=== PATIENT | female | born 1990 | race Caucasian/White ===

== ENCOUNTER 2020-09-16 08:10 | Outpatient (REF) | payer OTHER, SELFPAY ==
--- NOTE | 2020-09-16 | MR_ITS ---
EXAMINATION: MR BRAIN WITHOUT AND WITH CONTRAST CLINICAL INFORMATION: MCI. Gait disorder. COMPARISON: Head CT 06/16/2014. TECHNIQUE: Multiplanar, multisequence imaging of the brain was performed before and after the intravenous administration of 7.5 mL of Gadavist. FINDINGS: There is no acute infarction, mass, hemorrhage, or extra-axial collection. No abnormal or unexpected intracranial enhancement is seen. The ventricles, sulci, and basilar cisterns are normal in size and configuration. No demyelinating plaques are seen. No unexpected brain parenchymal volume loss. The flow voids of the major intracranial arteries appear intact. The bones and extracranial soft tissues are within normal limits. There is trace left mastoid fluid. MR/MR head/brain wo/w con IMPRESSION: No mass lesion, acute infarction, or abnormal intracranial enhancement. No brain parenchymal volume loss.
== END 2020-09-16 08:11 | disposition home or self-care (01) ==
LOC: HO.MRI 08:10
PROVIDERS: PCP Nurse Practitioner; Visit Provider Psychiatry & Neurology Neurology
DX: G31.84 Mild cognitive impairment of uncertain or unknown etiology (principal); R26.9 Unspecified abnormalities of gait and mobility
CPT/HCPCS: 70553; A9585

== ENCOUNTER 2020-11-08 15:00 | Outpatient (REF) | payer OTHER, SELFPAY | END 2020-11-08 15:01 | disposition home or self-care (01) | LOC: HO.HAP 15:00 | PROVIDERS: Visit Provider Nurse Practitioner | DX: Z13.89 Encounter for screening for other disorder (principal) ==

== ENCOUNTER 2020-11-14 12:14 | Emergency (ER) | payer OTHER, SELFPAY ==
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
[2020-11-14 14:04] VITALS: BP 103/53; PULSE 69; RESP 18; TEMP 36.7; O2SAT 100; BMI 29.2
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
[2020-11-14] MEDS: LORazepam 1 MG TABLET PO (15:37)
[2020-11-14] MEDS: Acetaminophen 325 MG TABLET 650 MG PO (15:38)
[2020-11-14] MEDS: Cyclobenzaprine HCl 5 MG TABLET PO (15:38)
[2020-11-14] MEDS: Silver Sulfadiazine 1 % Cream 20 GM TUBE 1 APPL TOPICAL (16:34)
--- NOTE | 2020-11-14 16:45 | PC.NURSE ---
silver sulfadine cream applied to left forearm, telfa and gauze dsd
== END 2020-11-14 16:45 | disposition home or self-care (01) ==
PROVIDERS: Emergency Provider Emergency Medicine; PCP Nurse Practitioner
DX: S09.90XA Unspecified injury of head, initial encounter (principal); G89.11 Acute pain due to trauma; M54.2 Cervicalgia; M25.562 Pain in left knee; S01.512A Laceration without foreign body of oral cavity, initial encounter; V43.02XA Car driver injured in collision with other type car in nontraffic accident, initial encounter; T22.112A Burn of first degree of left forearm, initial encounter; T31.0 Burns involving less than 10% of body surface; W22.11XA Striking against or struck by driver side automobile airbag, initial encounter; Y93.89 Activity, other specified; Y92.414 Local residential or business street as the place of occurrence of the external cause; Y99.9 Unspecified external cause status
CPT/HCPCS: 70450; 72125; 73090; 73564; 99283; 99284

== ENCOUNTER 2020-12-09 08:22 | Outpatient (REF) | payer SELFPAY | END 2020-12-09 08:23 | disposition home or self-care (01) | LOC: HO.HAP 08:22 | PROVIDERS: Visit Provider Nurse Practitioner | DX: Z46.1 Encounter for fitting and adjustment of hearing aid (principal) | CPT/HCPCS: V5266; V5299 ==

== ENCOUNTER 2020-12-26 13:03 | Emergency (ER) | payer OTHER, SELFPAY ==
[2020-12-26 13:18] VITALS: BP 101/58; PULSE 79; RESP 16; TEMP 36.9; O2SAT 100; BMI 33.1
--- NOTE | 2020-12-26 14:46 | ED_ITS ---
HPI - Headache General Chief Complaint: Headache Stated Complaint: migraine headache Time Seen by Provider: 12/26/20 14:25 Source: patient Mode of arrival: ambulatory Limitations: no limitations History of Present Illness HPI Narrative: 30 y/o female with history of obesity s/p gastric sleeve, refractory migraine headaches, fibromyalgia, anxiety who presents to the ED with 4 days of severe migraine headache. She states the pain is her entire head and even her hair hurts. Light and sound make it worse as well as laying flat. She has been nauseous and vomiting but denies abdominal pain. Denies chance of . She reports this headache feels like her typical migraine but more severe and more refractory. She was seen in the ED at [facility] yesterday where she was given IVF, Toradol and Zofran. She was negative for COVID. She was given a prescription for Fiorcet with no improvement. She reports seeing a Neurologist here who sent her to [facility] for possible Botox injections. MD elicited complaint: migraine Pertinent past history: migraines Onset (ago): day(s) (4) Onset description: gradually Location: down into neck and generalized Severity: severe Quality & Timing: aching, throbbing and squeezing Exacerbating factors: movement of head/neck, light and noise Relieving factors: nothing Context: occurred at rest Associated symptoms: nausea, vomiting and sensitivity to sound Treatments prior to arrival: none Related Data Previous Rx's Medication Instructions Recorded acetaminophen [Tylenol Extra 500 mg PO Q6H PRN #20 tab 11/14/20 Strength] bacitracin 1 appl TOPICAL BID #28 g 11/14/20 cyclobenzaprine 5 mg PO Q8H PRN 5 Days #14 tab 11/14/20 tramadol 50 mg PO Q8H PRN 3 Days #9 tab 11/14/20 Allergies Allergy/AdvReac Type Severity Reaction Status Date / Time clindamycin [CLINDAMYCIN] Allergy Severe ANAPHALAXIS Verified 11/14/20 14:04 adhesive tape Allergy Unknown CHANGES Verified 11/14/20 14:04 COLOR OF SKIN PERMANENTLY lamotrigine [From Lamictal] AdvReac Unknown Verified 12/26/20 13:24 Clindamycin HCl Allergy Unknown unknown Uncoded 03/23/19 00:00 Review of Systems Review of Systems: Constitutional: No Fever, No Chills ENT/Mouth: No sore throat, No Rhinorrhea, No Swallowing Difficulty Eyes: No Eye Pain, No Swelling, No Redness Cardiovascular: No Chest Pain, No SOB Respiratory: No Cough, No Sputum Gastrointestinal: + Nausea, + Vomiting, No Diarrhea, No abdominal Pain Musculoskeletal: + joint pain, + Myalgias Skin: No Skin Lesions, No rash Neuro: No Weakness, No Numbness, No Dizziness, + Headache Psych: + Anxiety/Panic, + Depression Heme/Lymph: No Bruising, No Lymphadenopathy Endocrine: No Polyuria, No Polydipsia [facility] Past Medical History Attestation statement: The following information was validated with the patient. Medical History Anxiety Asthma Fibromyalgia H/O migraine Social History Social History Advance Directives: No Advance Directives Information Provided: Yes Physical Exam Vital Signs: Vital Signs: Last Vital Signs Temp 98.3 F 12/26/20 15:42 Pulse 68 12/26/20 15:42 Resp 18 12/26/20 15:42 BP 89/56 L 12/26/20 15:42 Pulse Ox 99 12/26/20 15:42 Body Mass Index 33.1 Appearance: Alert. Oriented X3. No acute distress. Eyes: Pupils equal, round and reactive to light. EOMI, no nystagmus ENT: Pharynx normal. Neck: Normal inspection. Neck supple with lateral tenderness of soft tissues, no cervical spinal tenderness CVS: Normal heart rate and rhythm. Pulses normal. Respiratory: No respiratory distress. Breath sounds normal. Abdomen: Soft and nontender. +BS x4 Skin: Skin warm and dry. Normal skin color. Normal skin turgor. No rashes. Extremities: No lower extremity edema. Neuro: Oriented X 3. No motor deficit. No sensory deficit. Steady gait, non- focal. Course Course Course Narrative: 30 y/o female presenting with refractory migraine headache x4 days. She had recent MRI in Sep [address] scan neck in Nov. Doubt any organic cause. Clinical picture is not consistent with meningitis. Will treat with combination of toradol, reglan and benadryl and reassess. Reevaluation(s) Reevaluation #1: No improvement in headache after meds. Will give trial of Imitrex. Will sign out to Arash Walters PA-C who will re-evaluate the patient. MDM - Headache Differential Diagnosis Differential diagnosis: Likely migraine, tension headache, headache and postconcussion syndrome Medical Records Attestation: I reviewed the patient's medical records. Discharge Plan Discharge Clinical Impression: Migraine Qualifiers: Migraine type: unspecified Status migrainosus presence: with status migrainosus Intractability: intractable Qualified Code(s): G43.911 - Migraine, unspecified, intractable, with status migrainosus Patient Disposition: Home, Self-Care Instructions: Migraine Headache (ED) Additional Instructions: Follow up with your Neurologist [facility]. Prescriptions: No Action cyclobenzaprine 5 mg tablet 5 mg PO Q8H PRN (Reason: pain (scale score 7-10)) 5 Days Qty: 14 RF: 0 acetaminophen [Tylenol Extra Strength] 500 mg tablet 500 mg PO Q6H PRN (Reason: pain or fever) Qty: 20 RF: 0 tramadol 50 mg tablet 50 mg PO Q8H PRN (Reason: severe pain (scale score 7-10)) 3 Days Qty: 9 RF: 0 bacitracin 500 unit/gram ointment 1 appl topical BID Qty: 28 RF: 0
[2020-12-26] MEDS: 0.9 % Sodium Chloride 1,000 ML 999 ML IVCONT (14:52)
[2020-12-26] MEDS: diphenhydrAMINE HCL 50 MG/ML VIAL 25 MG IVPUSH (14:54)
[2020-12-26] MEDS: Ketorolac Tromethamine 30 MG/ML VIAL IVPUSH (14:55)
[2020-12-26] MEDS: Metoclopramide HCl 10 MG/2 ML VIAL IVPUSH (14:56)
[2020-12-26 15:42] VITALS: BP 89/56; PULSE 68; RESP 18; TEMP 36.8; O2SAT 99
[2020-12-26 17:17] VITALS: BP 98/56; PULSE 70; RESP 16; O2SAT 100
[2020-12-26] MEDS: dexAMETHasone 6 MG TABLET PO (17:18)
--- NOTE | 2020-12-26 17:21 | PC.NURSE ---
Pt continues to have a headache. She was given sc sumatriptan and po decadron at this time. VSS. Pt given crackers as requested.
[2020-12-26] MEDS: traMADoL HCL 50 MG TABLET PO (20:07)
== END 2020-12-26 20:18 | disposition home or self-care (01) ==
PROVIDERS: Emergency Provider Emergency Medicine; PCP Nurse Practitioner
DX: G43.911 Migraine, unspecified, intractable, with status migrainosus (principal); R11.2 Nausea with vomiting, unspecified; J45.909 Unspecified asthma, uncomplicated; F41.9 Anxiety disorder, unspecified; Z79.899 Other long term (current) drug therapy
CPT/HCPCS: 96361; 96372; 96374; 96375; 99284; J1200; J1885; J2765; J3030; J8540

== ENCOUNTER 2021-01-14 20:13 | Emergency (ER) | payer OTHER, SELFPAY ==
--- NOTE | ~2021-01-14 | CT_ITS ---
EXAMINATION: CT ABDOMEN AND PELVIS WITHOUT CONTRAST CLINICAL INFORMATION: Right-sided pain. Question appendicitis. Question stone. COMPARISON: 07/06/2011 TECHNIQUE: Multidetector volumetric imaging was performed from the superior aspect of the liver through the pubic symphysis. Sagittal and coronal reformatted images were obtained on the technologist's workstation. This CT examination was performed using dose optimization techniques as appropriate, variously including the following: *Automated exposure control. *Adjustment of mA and/or kV according to patient size (this includes techniques or standardized protocols for targeted exams where dose is matched to indication/reason for exam; i.e. extremities or head). *Use of iterative reconstruction technique. DLP: 558 mGy-cm FINDINGS: LUNG BASES: The visualized lung bases are unremarkable. LIVER, GALLBLADDER, AND BILIARY TREE: The liver is normal in size, shape, and attenuation. No focal hepatic lesion or biliary ductal dilatation is present. The gallbladder is unremarkable with no evidence of radiopaque gallstones, gallbladder wall thickening, or obvious pericholecystic inflammatory changes. PANCREAS: Unremarkable. SPLEEN: Unremarkable. ADRENAL GLANDS: Unremarkable. KIDNEYS AND URETERS: No renal calculi. No suspicious lesions. No ureteral calculi are seen. No hydronephrosis. No perinephric stranding. BLADDER: Unremarkable. GASTROINTESTINAL TRACT: Postsurgical changes from gastric bypass. No dilated bowel loops are seen. No colonic wall thickening or pericolonic inflammatory changes. Appendix appears unremarkable. No inflammatory changes in the right lower quadrant. ABDOMINAL WALL: No significant hernia is appreciated. LYMPH NODES: No lymphadenopathy seen. VASCULAR: Normal caliber aorta. PELVIC VISCERA: Anteverted uterus. A 1.6 cm left adnexal/ovarian cyst. No free fluid. OSSEOUS STRUCTURES: Unremarkable. CT/CT abdomen pelvis wo con IMPRESSION: 1. No acute findings identified in the abdomen or pelvis. 2. No evidence of renal or ureteral calculi. No hydronephrosis. 3. Appendix appears unremarkable. 4. Status post gastric bypass surgery.
[2021-01-14 20:22] VITALS: BP 113/59; PULSE 95; RESP 18; TEMP 37.3; O2SAT 97; BMI 33.6
--- NOTE | 2021-01-14 20:53 | ED_ITS ---
HPI - Abdominal Pain General Chief Complaint: Abdominal Pain Stated Complaint: Abdominal pain Time Seen by Provider: 01/14/21 20:53 Source: patient Mode of arrival: ambulatory Limitations: no limitations History of Present Illness HPI narrative: Patient's history of kidney stone questionable appendicitis in the past been having pain in the right lower abdomen off and found for last 6 months today since 11:00 o'clock noticed pain in the right lower quadrant similar to that in the past vomited 2 times no fever no diarrhea, no urinary complaints patient said she vomited slightly dark color no melena no flank pain MD elicited complaint: abdominal pain Pertinent past history: kidney stones Onset (ago): hour(s) Pain Consistency: constant Location: RLQ Severity: moderate Quality: sharp Radiation: none Exacerbating factors: eating Relieving factors: nothing Associated symptoms: nausea and vomiting Related Data Previous Rx's Medication Instructions Recorded acetaminophen [Tylenol Extra 500 mg PO Q6H PRN #20 tab 11/14/20 Strength] bacitracin 1 appl TOPICAL BID #28 g 11/14/20 cyclobenzaprine 5 mg PO Q8H PRN 5 Days #14 tab 11/14/20 tramadol 50 mg PO Q8H PRN 3 Days #9 tab 11/14/20 tramadol 50 mg PO TID PRN #9 tab 12/26/20 dicyclomine 20 mg PO QID PRN #20 tab 01/15/21 Allergies Allergy/AdvReac Type Severity Reaction Status Date / Time clindamycin [CLINDAMYCIN] Allergy Severe ANAPHALAXIS Verified 01/14/21 20:22 adhesive tape Allergy Unknown CHANGES Verified 01/14/21 20:22 COLOR OF SKIN PERMANENTLY lamotrigine [From Lamictal] AdvReac Unknown Verified 01/14/21 20:22 Clindamycin HCl Allergy Unknown unknown Uncoded 03/23/19 00:00 Review of Systems Review of Systems Constitutional : No Weight loss, No Fever, No Chills ENT/Mouth : No sore throat, No Rhinorrhea Eyes: No Eye Pain, No Swelling Cardiovascular : No Chest Pain, no palpitations Respiratory : No Cough, No Sputum, no shortness of breath Gastrointestinal : + Nausea, + Vomiting, No Diarrhea, + abdominal Pain, no black stools Genitourinary : No Dysuria, No Urinary Frequency Musculoskeletal : No joint pain, No Myalgias, No Joint Swelling Skin : No Skin Lesions, No rash Neuro : No Weakness, No Numbness, No Dizziness, No Headache Psych : No Anxiety/Panic, No Depression Heme/Lymph: No Bruising, No Lymphadenopathy Endocrine : No Polyuria, No Polydipsia All other systems reviewed and are negative Physical Exam Vital Signs: Vital Signs: Last Vital Signs Temp 98.2 F 01/14/21 22:14 Pulse 94 01/14/21 22:14 Resp 18 01/14/21 22:14 BP 98/57 L 01/14/21 22:14 Pulse Ox 100 01/14/21 22:14 Body Mass Index 33.6 Appearance: Alert. Oriented X3. In moderate distress. Eyes: Pupils equal, round and reactive to light. ENT: Pharynx normal. Neck: Normal inspection. Neck supple. CVS: Normal heart rate and rhythm. Pulses normal. Respiratory: No respiratory distress. Breath sounds normal. Abdomen: Soft deep tenderness right lower quadrant guarding + no rebound tenderness Bowel sounds are present, no mass palpable, no CVA tenderness Skin: Skin warm and dry. Normal skin color. Normal skin turgor. Extremities: No lower extremity edema. Neuro: Oriented X 3. No motor deficit. No sensory deficit. 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 At this time patient pa in seems to be more functional than pathological will give her prescription for dicyclomine possible for IBS Time: 00:06 MDM - Abdominal Pain MDM Narrative Medical decision making narrative: Patient with recurrent right lower quadrant abdominal pain had a CT scan done in [facility] on 11/27 which showed some improvement in right hydronephrosis no appendicitis at this time patient has leukocytosis of 13,000 CRP is elevatedto 1.09. UA is negative for hematuria will do CT scan to rule out appendicitis versus stone Differential Diagnosis Differential diagnosis: Likely abdominal pain and acute appendicitis Lab Data Attestation: I reviewed the patient's lab results. Result diagrams: 01/14/21 21:13 01/14/21 21:13 Labs: Lab Results 01/14/21 01/14/21 01/14/21 Range/Units 21:13 21:13 21:13 WBC 13.0 H (4.8-10.8) X10*3/uL RBC 3.90 L (4.20-5.50) X10*6/uL Hgb 11.7 L (12.0-16.0) g/dl Hct 35.6 L (37-47) % MCV 91.3 (80-98) fL MCH 30.0 (27.0-33.0) pg MCHC 32.9 (31.0-35.0) g/dl RDW 13.2 (11.0-16.0) % Plt Count 235 (160-400) X10*3/uL MPV 11.8 (9.4-12.3) fL Immature Gran % (Auto) 0.5 H (0.0-0.4) % Neut % (Auto) 52.3 (45-73) % Lymph % (Auto) 39.5 (20-40) % [place] % (Auto) 6.2 (2-11) % Eos % (Auto) 1.3 (0-4) % Baso % (Auto) 0.2 (0-2) % Lymph # (Auto) 5.1 H (1.2-4.9) X10*3/uL [place] # (Auto) 0.8 (0.1-1.2) X10*3/uL Eos # (Auto) 0.2 (0.0-0.4) X10*3/uL Baso # (Auto) 0.0 (0.0-0.2) X10*3/uL Abs Immat Gran (auto) 0.06 H (0.00-0.03) X10*3/uL Absolute Neuts (auto) 6.8 (2.0-8.3) X10*3/uL Absolute Nucleated RBC 0.000 (0.0-0.012) X10*3/uL Nucleated RBC % (auto) 0.0 (0.0-0.2) /100WBC Smear Tech's Comments VERIFIED Sodium 142 (135-145) mmol/L Potassium 4.0 (3.3-5.1) mmol/L Chloride 108 (96-108) mmol/L Carbon Dioxide 26 (22-29) mmol/L Anion Gap 12 (12-20) BUN 13 (9-16) mg/dL Creatinine 0.69 (0.5-1.4) mg/dL Estim Creat Clear Calc 93.0 Estimated GFR > 60 Random Glucose 83 (60-115) mg/dL Calcium 8.8 (8.4-10.2) mg/dL Total Bilirubin 0.2 (0.0-1.0) mg/dL Direct Bilirubin < 0.2 (0.0-0.5) mg/dL AST 22 (5-31) U/L ALT 26 (0-31) U/L Alkaline Phosphatase 70 (39-117) U/L C-Reactive Protein 1.09 H (< or = 0.50) mg/dL Total Protein 6.3 L (6.5-8.0) g/dL Albumin 3.8 (3.5-5.0) g/dL Lipase 38 (8-78) U/L Urine Color Urine Appearance Urine pH (5.0-8.0) Ur Specific [place] (1.005-1.025) Urine Protein (NEG-TRACE) MG/DL Urine Glucose (UA) (NEG) MG/DL Urine Ketones (NEG) MG/DL Urine Blood (NEG) Urine Nitrite (NEG) Ur Leukocyte Esterase (NEG) Urine Test (NEGATIVE) 01/14/21 01/14/21 Range/Units 22:18 22:18 WBC (4.8-10.8) X10*3/uL RBC (4.20-5.50) X10*6/uL Hgb (12.0-16.0) g/dl Hct (37-47) % MCV (80-98) fL MCH (27.0-33.0) pg MCHC (31.0-35.0) g/dl RDW (11.0-16.0) % Plt Count (160-400) X10*3/uL MPV (9.4-12.3) fL Immature Gran % (Auto) (0.0-0.4) % Neut % (Auto) (45-73) % Lymph % (Auto) (20-40) % [place] % (Auto) (2-11) % Eos % (Auto) (0-4) % Baso % (Auto) (0-2) % Lymph # (Auto) (1.2-4.9) X10*3/uL [place] # (Auto) (0.1-1.2) X10*3/uL Eos # (Auto) (0.0-0.4) X10*3/uL Baso # (Auto) (0.0-0.2) X10*3/uL Abs Immat Gran (auto) (0.00-0.03) X10*3/uL Absolute Neuts (auto) (2.0-8.3) X10*3/uL Absolute Nucleated RBC (0.0-0.012) X10*3/uL Nucleated RBC % (auto) (0.0-0.2) /100WBC Smear Tech's Comments Sodium (135-145) mmol/L Potassium (3.3-5.1) mmol/L Chloride (96-108) mmol/L Carbon Dioxide (22-29) mmol/L Anion Gap (12-20) BUN (9-16) mg/dL Creatinine (0.5-1.4) mg/dL Estim Creat Clear Calc Estimated GFR Random Glucose (60-115) mg/dL Calcium (8.4-10.2) mg/dL Total Bilirubin (0.0-1.0) mg/dL Direct Bilirubin (0.0-0.5) mg/dL AST (5-31) U/L ALT (0-31) U/L Alkaline Phosphatase (39-117) U/L C-Reactive Protein (< or = 0.50) mg/dL Total Protein (6.5-8.0) g/dL Albumin (3.5-5.0) g/dL Lipase (8-78) U/L Urine Color DARK YELLOW Urine Appearance CLEAR Urine pH 7.0 (5.0-8.0) Ur Specific [place] 1.015 (1.005-1.025) Urine Protein TRACE (NEG-TRACE) MG/DL Urine Glucose (UA) NEG (NEG) MG/DL Urine Ketones NEG (NEG) MG/DL Urine Blood NEG (NEG) Urine Nitrite NEG (NEG) Ur Leukocyte Esterase NEG (NEG) Urine Test NEGATIVE (NEGATIVE) Discharge Plan Discharge Clinical Impression: Abdominal pain Qualifiers: Abdominal location: generalized Qualified Code(s): R10.84 - Generalized abdominal pain Patient Disposition: Home, Self-Care Instructions: Abdominal Pain (ED) Additional Instructions: Drink plenty of fluids Follow-up with auto salvage worker. Pain medication as prescribed Prescriptions: New dicyclomine 20 mg tablet 20 mg PO QID PRN (Reason: abdominal pain) Qty: 20 RF: 0 No Action tramadol 50 mg tablet 50 mg PO TID PRN (Reason: pain) Qty: 9 RF: 0 cyclobenzaprine 5 mg tablet 5 mg PO Q8H PRN (Reason: pain (scale score 7-10)) 5 Days Qty: 14 RF: 0 acetaminophen [Tylenol Extra Strength] 500 mg tablet 500 mg PO Q6H PRN (Reason: pain or fever) Qty: 20 RF: 0 tramadol 50 mg tablet 50 mg PO Q8H PRN (Reason: severe pain (scale score 7-10)) 3 Days Qty: 9 RF: 0 bacitracin 500 unit/gram ointment 1 appl topical BID Qty: 28 RF: 0 Referrals: Bertha Harris MD [Physician] - 1 week [facility] Past Medical History Medical History (Updated 01/15/21 @ 00:04 by Timothy Eller MD) Anxiety Asthma Fibromyalgia H/O migraine Surgical History (Updated 01/14/21 @ 23:04 by Timothy Eller MD) Bariatric surgery status Social History Social History Advance Directives: No Advance Directives Information Provided: No
[2021-01-14] MEDS: 0.9 % Sodium Chloride 1,000 ML 999 ML IVCONT (21:19)
[2021-01-14] MEDS: ondansetron HCL 4 MG/2 ML VIAL IVPUSH (21:20)
[2021-01-14 21:21] LABS: Basophils Percent Auto 0.2 % (0-2); Eosinophils Absolute Auto 0.2 X10*3/uL (0.0-0.4); Eosinophils Percent Auto 1.3 % (0-4); Hematocrit 35.6 % (37-47); Hemoglobin 11.7 g/dl (12.0-16.0); Imm Gran Abs Auto 0.06 X10*3/uL (0.00-0.03); Imm Gran Pct Auto 0.5 % (0.0-0.4); Lymphocytes Absolute Auto 5.1 X10*3/uL (1.2-4.9); Lymphocytes Percent Auto 39.5 % (20-40); MANUAL DIFF FLAG SCAN; Mean Corpuscular HGB Conc 32.9 g/dl (31.0-35.0); Mean Corpuscular Volume 91.3 fL (80-98); Mean Platelet Volume 11.8 fL (9.4-12.3); Monocytes Absolute Auto 0.8 X10*3/uL (0.1-1.2); Monocytes Percent Auto 6.2 % (2-11); Neutrophils Absolute Auto 6.8 X10*3/uL (2.0-8.3); Neutrophils Percent Auto 52.3 % (45-73); Platelet Count 235 X10*3/uL (160-400); Red Cell Distribution Width 13.2 % (11.0-16.0); SCAN SMEAR FLAG 1
[2021-01-14] MEDS: Morphine Sulfate 4 MG/ML CARTRIDGE IVPUSH (21:21)
--- NOTE | 2021-01-14 21:22 | PC.NURSE ---
MEDICATED CHARTED. PATIENT RESTING IN POSITION OF COMFORT AT THIS TIME.
[2021-01-14 21:40] LABS: SLIDE REVIEW VERIFIED
[2021-01-14 21:44] LABS: Lipase 38 U/L (8-78)
[2021-01-14 21:46] LABS: Alanine Aminotransferase 26 U/L (0-31); Albumin Level 3.8 g/dL (3.5-5.0); Alkaline Phosphatase 70 U/L (39-117); Anion Gap 12 (12-20); Aspartate Amino Transferase 22 U/L (5-31); Bilirubin Direct < 0.2 mg/dL (0.0-0.5); Bilirubin Total 0.2 mg/dL (0.0-1.0); Blood Urea Nitrogen 13 mg/dL (9-16); C Reactive Protein 1.09 mg/dL (< or = 0.50); Calcium 8.8 mg/dL (8.4-10.2); Carbon Dioxide 26 mmol/L (22-29); Chloride 108 mmol/L (96-108); Estimated Glomerular Filt Rate > 60; Glucose Random 83 mg/dL (60-115); Sodium 142 mmol/L (135-145); Total Protein 6.3 g/dL (6.5-8.0)
[2021-01-14 22:14] VITALS: BP 98/57; PULSE 94; RESP 18; TEMP 36.8; O2SAT 100
[2021-01-14 22:26] LABS: Appearance Urine CLEAR; Color Urine DARK YELLOW; Glucose Urine UA NEG (NEG); Leukocyte Esterase Urine NEG (NEG); Nitrite Urine NEG (NEG); Specific Gravity - Urine 1.015 (1.005-1.025); Urine Blood NEG (NEG); Urine Ketones NEG (NEG); Urine Protein TRACE MG/DL (NEG-TRACE)
[2021-01-14 22:27] LABS: Urine Pregnancy NEGATIVE (NEGATIVE)
[2021-01-14 22:28] LABS: UPreg QC Valid YES
[2021-01-14] MEDS: Ketorolac Tromethamine 30 MG/ML VIAL IVPUSH (22:36)
== END 2021-01-15 00:23 | disposition home or self-care (01) ==
PROVIDERS: Emergency Provider Internal Medicine
DX: R10.84 Generalized abdominal pain (principal); N83.202 Unspecified ovarian cyst, left side; Z87.442 Personal history of urinary calculi
CPT/HCPCS: 36415; 74176; 80048; 80076; 81003; 81025; 83690; 85025; 86140; 96361; 96374; 96375; 99284; J1885; J2270; J2405

== ENCOUNTER 2021-02-14 23:34 | Emergency (ER) | payer OTHER, SELFPAY ==
[2021-02-14 23:37] VITALS: BP 106/74; PULSE 77; RESP 18; TEMP 36.7; O2SAT 100; BMI 33.7
[2021-02-15 00:17] VITALS: BP 101/64; PULSE 86; RESP 16; TEMP 36.6; O2SAT 100
--- NOTE | 2021-02-15 00:51 | ED.GENADULT ---
HPI - General Adult General Chief complaint: General Medical Stated complaint: kidney pain Time Seen by Provider: 02/15/21 00:37 Source: patient Mode of arrival: ambulatory Limitations: no limitations History of Present Illness HPI narrative: Patient is a 31-year-old female with a past medical history of anxiety, fibromyalgia, asthma, migraines and status post bariatric surgery who presents with 1 week of bilateral flank pain that radiates to the front and a feeling of incomplete bladder emptying. Patient states she was at an inpatient program at [facility] in [place] when this started, and they medicated her with Tylenol and Toradol which she states did not work. The pain got worse 2 days ago and they gave her a full workup including labs and an abdominal pelvic CT scan. Patient had the lab results on her phone, all were within normal limits. The abdominal CT scan showed medullary nephrocalcinosis but no kidney stones. Her UA at that time was negative. Patient states she vomited yesterday and is nauseous but can tolerate small amounts of food and drink. Patient denies diarrhea, blood in her urine, fevers, chest pain or shortness of breath. Related Data Previous Rx's Medication Instructions Recorded acetaminophen [Tylenol Extra 500 mg PO Q6H PRN #20 tab 11/14/20 Strength] bacitracin 1 appl TOPICAL BID #28 g 11/14/20 cyclobenzaprine 5 mg PO Q8H PRN 5 Days #14 tab 11/14/20 tramadol 50 mg PO Q8H PRN 3 Days #9 tab 11/14/20 tramadol 50 mg PO TID PRN #9 tab 12/26/20 dicyclomine 20 mg PO QID PRN #20 tab 01/15/21 nitrofurantoin monohyd/m-cryst 100 mg PO Q12H 5 Days #10 cap 02/15/21 Allergies Allergy/AdvReac Type Severity Reaction Status Date / Time clindamycin [CLINDAMYCIN] Allergy Severe ANAPHALAXIS Verified 01/14/21 20:22 adhesive tape Allergy Unknown CHANGES Verified 01/14/21 20:22 COLOR OF SKIN PERMANENTLY lamotrigine [From Lamictal] AdvReac Unknown Verified 01/14/21 20:22 Clindamycin HCl Allergy Unknown unknown Uncoded 03/23/19 00:00 Review of Systems Review of Systems: Yes all other systems are reviewed and are negative PMFSH Past Medical History Medical History Anxiety Asthma Fibromyalgia H/O migraine Surgical History Bariatric surgery status Social History Social History Alcohol intake: current Alcohol intake frequency: holidays/special occasions only Smoking Status: Never smoker Use of substances other than those prescribed or required for medical reasons: No Substance Use Type: Marijuana Advance Directives: No Patient : No Physical Exam Vital Signs: Vital Signs: Last Vital Signs Temp 97.8 F 02/15/21 01:12 Pulse 73 02/15/21 01:12 Resp 16 02/15/21 01:12 BP 94/48 L 02/15/21 01:12 Pulse Ox 100 02/15/21 01:12 Body Mass Index 33.7 Const: General: cooperative, healthy appearing, comfortable and no acute distress Nutritional Appearance: average body habitus Orientation/consciousness: patient oriented x3 Limitations: no limitations HENMT: Head: Yes normal to inspection Eyes: General: appearance normal, both eyes and all related structures Neck: Neck: Yes normal visual inspection and Yes full ROM Resp: Effort & Inspection: normal respiratory effort and able to speak in complete sentences Auscultation: clear to auscultation bilaterally Cardio: Rate: regular rate Rhythm: regular rhythm Heart sounds: normal S1 and S2 GI: Inspection: Yes normal to inspection Palpation (GI): Soft to palpation and Tenderness to palpation present (GI) suprapubicly : General: Yes no CVA tenderness Back/Spine/Pelvis: Back: no CVA tenderness Skin: General skin exam: no rashes or lesions noted Neuro: General: patient oriented x3 Extrem: General: Yes normal to inspection Course Course Course Narrative: Patient is a 31-year-old female with a past medical history of anxiety, fibromyalgia, asthma, migraines and status post bariatric surgery who presents with 1 week of bilateral flank pain that radiates to the front and a feeling of bladder fullness. Patient had a full workup at [facility] in [place] 2 days ago including labs, UA and an abdominal pelvic CT scan which were within normal limits, the CT scan did show medullary nephrocalcinosis. Patient states she was discharged but she is still in pain. Today, her vital signs are stable. Physical exam was unremarkable except for some suprapubic pain. Patient is unable to provide a urine sample at this time, will give fluids and try again in a little while. I am not going to repeat the labs or the CT scan. Will treat the patient's pain with 15 mg morphine p.o.. Reevaluation(s) Reevaluation #1: Urine negative for infection, test negative. Will get bladder scan. Time: 01:21 Reevaluation #2: Bladder scan reveals minimal amount of urine, will treat for UTI. First dose now. Time: 01:32 Medical Decision Making Lab Data Lab results reviewed: Yes I reviewed the patient's lab results. Labs: Lab Results 02/15/21 02/15/21 Range/Units 01:07 01:07 Urine Color YELLOW Urine Appearance CLEAR Urine pH 6.0 (5.0-8.0) Ur Specific [place] 1.020 (1.005-1.025) Urine Protein NEG (NEG-TRACE) MG/DL Urine Glucose (UA) NEG (NEG) MG/DL Urine Ketones NEG (NEG) MG/DL Urine Blood NEG (NEG) Urine Nitrite NEG (NEG) Ur Leukocyte Esterase NEG (NEG) Urine Test NEGATIVE (NEGATIVE) Discharge Plan Discharge Clinical Impression: UTI (urinary tract infection) Qualifiers: Urinary tract infection type: acute cystitis Hematuria presence: without hematuria Qualified Code(s): N30.00 - Acute cystitis without hematuria Patient Disposition: Home, Self-Care Instructions: Urinary Tract Infection in Women (ED) Additional Instructions: I am treating for urinary tract infection as you are symptomatic. We will give you your 1st dose tonight, I sent 5 additional days of antibiotics to your pharmacy. Please take these and fall, even if you are feeling better. We will do a culture of your urine, if it shows the antibiotic as prescribed do is inappropriate for the bacteria, we will call you and switch the antibiotic. If you develop a fever, cannot tolerate eating or drinking, please return to the emergency department. Please be sure to stay well hydrated as this will help flush out the bacteria. Prescriptions: New nitrofurantoin monohyd/m-cryst 100 mg capsule 100 mg PO Q12H 5 Days Qty: 10 RF: 0 No Action tramadol 50 mg tablet 50 mg PO TID PRN (Reason: pain) Qty: 9 RF: 0 dicyclomine 20 mg tablet 20 mg PO QID PRN (Reason: abdominal pain) Qty: 20 RF: 0 cyclobenzaprine 5 mg tablet 5 mg PO Q8H PRN (Reason: pain (scale score 7-10)) 5 Days Qty: 14 RF: 0 acetaminophen [Tylenol Extra Strength] 500 mg tablet 500 mg PO Q6H PRN (Reason: pain or fever) Qty: 20 RF: 0 tramadol 50 mg tablet 50 mg PO Q8H PRN (Reason: severe pain (scale score 7-10)) 3 Days Qty: 9 RF: 0 bacitracin 500 unit/gram ointment 1 appl topical BID Qty: 28 RF: 0 Referrals: Martha Grey APRN [Primary Care Provider] - 2 days (if not better)
[2021-02-15] MEDS: Morphine Sulfate Immed Release 15 MG TABLET PO (01:05)
[2021-02-15 01:12] VITALS: BP 94/48; PULSE 73; RESP 16; TEMP 36.6; O2SAT 100
[2021-02-15 01:15] LABS: Appearance Urine CLEAR; Color Urine YELLOW; Glucose Urine UA NEG (NEG); Leukocyte Esterase Urine NEG (NEG); Nitrite Urine NEG (NEG); Urine Blood NEG (NEG); Urine Ketones NEG (NEG); Urine Protein NEG (NEG-TRACE)
[2021-02-15 01:16] LABS: UPreg QC Valid YES; Urine Pregnancy NEGATIVE (NEGATIVE)
[2021-02-15] MEDS: Nitrofurantoin Monohyd/M-Cryst 100 MG CAPSULE PO (01:39)
== END 2021-02-15 01:48 | disposition home or self-care (01) ==
PROVIDERS: Emergency Provider Emergency Medicine; PCP Nurse Practitioner
DX: N30.00 Acute cystitis without hematuria (principal)
CPT/HCPCS: 81003; 81025; 99283; 99284

== ENCOUNTER 2021-03-03 19:54 | Emergency (ER) | payer OTHER, SELFPAY ==
--- NOTE | ~2021-03-03 | CT_ITS ---
EXAMINATION: CT HEAD WITHOUT CONTRAST CLINICAL INFORMATION: Persistent headache post fall COMPARISON: 11/14/2020 TECHNIQUE: Contiguous axial imaging was performed from the skull base to vertex without intravenous contrast. This CT examination was performed using dose optimization techniques as appropriate, variously including the following: * Automated exposure control * Adjustment of mA and/or kV according to patient size (this includes techniques or standardized protocols for targeted exams where dose is matched to indication/reason for exam; i.e. extremities or head) Use of iterative reconstruction technique DLP: 544 mGy-cm. FINDINGS: There is no evidence of acute intracranial hemorrhage or territorial infarction. No abnormal mass effect or midline shift is seen. Ramos to white matter differentiation is well preserved. No extra-axial fluid collections are identified. No hydrocephalus. No significant volume loss. There is no abnormal attenuation within the brain parenchyma. The osseous structures and soft tissues are normal. The mastoid air cells and visualized portions of the paranasal sinuses are well aerated. CT/CT head/brain wo con IMPRESSION: No acute intracranial pathology.
[2021-03-03 20:21] VITALS: BP 109/70; BP 128/60; PULSE 72; RESP 18; TEMP 37.3; O2SAT 100; BMI 33.6
--- NOTE | 2021-03-03 20:27 | PC.NURSE ---
orthostatic bp taken on arrival laying hr 61 95/61 sitting hr 73 106/67 standing hr 72 109/70 denies dizziness, sat remained at 100%.
--- NOTE | 2021-03-03 21:04 | ECG_ITS ---
Test Reason : SYNCOPE Blood Pressure : / mmHG Vent. Rate : 067 BPM Atrial Rate : 067 BPM P-R Int : 138 ms QRS Dur : 082 ms QT Int : 390 ms P-R-T Axes : 054 033 022 degrees QTc Int : 412 ms Normal sinus rhythm Normal ECG When compared with ECG of 28-FEB-2016 08:04, No significant change was found Referred By: Timothy Eller Electronically Signed By:KIERSTEN JOHNSON
[2021-03-03] MEDS: ondansetron HCL 4 MG/2 ML VIAL IVPUSH (21:40)
[2021-03-03 21:41] VITALS: RESP 18
[2021-03-03] MEDS: 0.9 % Sodium Chloride 1,000 ML 999 ML IVCONT (21:41)
[2021-03-03] MEDS: Morphine Sulfate 4 MG/ML CARTRIDGE IVPUSH (21:41)
[2021-03-03 22:01] LABS: MANUAL DIFF FLAG NO
[2021-03-03 22:03] LABS: Basophils Percent Auto 0.2 % (0-2); Eosinophils Absolute Auto 0.2 X10*3/uL (0.0-0.4); Eosinophils Percent Auto 2.4 % (0-4); Hematocrit 31.8 % (37-47); Hemoglobin 10.1 g/dl (12.0-16.0); Imm Gran Abs Auto 0.02 X10*3/uL (0.00-0.03); Imm Gran Pct Auto 0.2 % (0.0-0.4); Lymphocytes Absolute Auto 3.5 X10*3/uL (1.2-4.9); Lymphocytes Percent Auto 39.7 % (20-40); Mean Corpuscular HGB Conc 31.8 g/dl (31.0-35.0); Mean Corpuscular Hemoglobin 29.1 pg (27.0-33.0); Mean Corpuscular Volume 91.6 fL (80-98); Mean Platelet Volume 11.3 fL (9.4-12.3); Monocytes Absolute Auto 0.6 X10*3/uL (0.1-1.2); Monocytes Percent Auto 6.8 % (2-11); Neutrophils Absolute Auto 4.5 X10*3/uL (2.0-8.3); Neutrophils Percent Auto 50.7 % (45-73); Platelet Count 206 X10*3/uL (160-400); Red Blood Count 3.47 X10*6/uL (4.20-5.50); Red Cell Distribution Width 13.2 % (11.0-16.0); White Blood Count 8.9 X10*3/uL (4.8-10.8)
[2021-03-03 22:28] LABS: Anion Gap 12 (12-20); Blood Urea Nitrogen 14 mg/dL (9-16); Calcium 8.5 mg/dL (8.4-10.2); Carbon Dioxide 21 mmol/L (22-29); Chloride 112 mmol/L (96-108); Creatinine Clr Calc Pharmacy 94.4; Estimated Glomerular Filt Rate > 60; Glucose Random 81 mg/dL (60-115); Potassium 4.2 mmol/L (3.3-5.1); Sodium 141 mmol/L (135-145)
--- NOTE | 2021-03-03 22:42 | ED.SYNCOPE ---
HPI - Syncope General Chief Complaint: Syncope Stated Complaint: syncope Time Seen by Provider: 03/03/21 21:04 Source: patient Mode of arrival: ambulatory Limitations: no limitations History of Present Illness HPI narrative: History of depression anxiety chronic migraine been having headache for last few days went to take shower, came out from the bathtub fell lightheaded and passed out hitting her head to the ground no significant bruising patient had similar episodes in the past likely vasovagal at this time patient complaining of headache diffuse going to the back of the neck MD complaint: felt faint Onset (ago): minute(s) Related Data Previous Rx's Medication Instructions Recorded acetaminophen [Tylenol Extra 500 mg PO Q6H PRN #20 tab 11/14/20 Strength] bacitracin 1 appl TOPICAL BID #28 g 11/14/20 cyclobenzaprine 5 mg PO Q8H PRN 5 Days #14 tab 11/14/20 tramadol 50 mg PO Q8H PRN 3 Days #9 tab 11/14/20 tramadol 50 mg PO TID PRN #9 tab 12/26/20 dicyclomine 20 mg PO QID PRN #20 tab 01/15/21 nitrofurantoin monohyd/m-cryst 100 mg PO Q12H 5 Days #10 cap 02/15/21 Allergies Allergy/AdvReac Type Severity Reaction Status Date / Time clindamycin [CLINDAMYCIN] Allergy Severe ANAPHALAXIS Verified 01/14/21 20:22 adhesive tape Allergy Unknown CHANGES Verified 01/14/21 20:22 COLOR OF SKIN PERMANENTLY lamotrigine [From Lamictal] AdvReac Unknown Verified 01/14/21 20:22 Clindamycin HCl Allergy Unknown unknown Uncoded 03/23/19 00:00 Review of Systems Review of Systems: Constitutional : No Weight loss, No Fever, No Chills ENT/Mouth : No sore throat, No Rhinorrhea Eyes: No Eye Pain, No Swelling Cardiovascular : No Chest Pain, no palpitations Respiratory : No Cough, No Sputum, no shortness of breath Gastrointestinal : no Nausea, No Vomiting, No Diarrhea, No abdominal Pain, no black stools Genitourinary : No Dysuria, No Urinary Frequency Musculoskeletal : No joint pain, No Myalgias, No Joint Swelling Skin : No Skin Lesions, No rash Neuro : No Weakness, No Numbness, No Dizziness, + Headache Psych : No Anxiety/Panic, No Depression Heme/Lymph: No Bruising, No Lymphadenopathy Endocrine : No Polyuria, No Polydipsia All other systems reviewed and are negative [facility] Past Medical History Medical History Anxiety Asthma Fibromyalgia H/O migraine Surgical History Bariatric surgery status Social History Social History Alcohol intake: current Alcohol intake frequency: holidays/special occasions only Substance Use Type: Marijuana Advance Directives: No Advance Directives Information Provided: Yes Patient : No Physical Exam Vital Signs: Vital Signs: Last Vital Signs Temp 0.5 F L 03/03/21 23:00 Pulse 72 03/03/21 23:08 Resp 18 03/03/21 23:08 BP 106/73 03/03/21 23:08 Pulse Ox 100 03/03/21 23:08 Body Mass Index 33.6 Appearance: Alert. Oriented X3. No acute distress. Eyes: PERRLA, No Nystagmus HEENT: Pharynx normal. Oral Mucosa moist atraumatic normocephalic no signs of injury tympanic membrane intact bilaterally Neck: Normal inspection. Neck supple. CVS: Normal heart rate and rhythm. Pulses normal. Respiratory: No respiratory distress. Equal air entry bilateral, no wheezing/rales/rhonchi Abdomen: Soft and nontender. Bowel sounds are present, no mass palpable, no CVA tenderness Skin: Skin warm and dry. Normal skin color. Normal skin turgor. Extremities: No lower extremity edema. No calf tenderness Neuro: Oriented X 3. No motor deficit. No sensory deficit.No cerebellar signs , cranial nerves II-XII intact MDM - Syncope MDM Narrative Medical decision making narrative: Patient likely with vasovagal syncope episode and no significant injury, orthostatics are normal, patient has insisted for head CT which was negative patient headache is chronic from migraine improved after morphine and tramadol will discharge patient home advised to follow-up with her neurologist Lab Data Attestation: I reviewed the patient's lab results. Result diagrams: 03/03/21 21:56 03/03/21 21:56 Labs: Lab Results 03/03/21 03/03/21 Range/Units 21:56 21:56 WBC 8.9 (4.8-10.8) X10*3/uL RBC 3.47 L (4.20-5.50) X10*6/uL Hgb 10.1 L (12.0-16.0) g/dl Hct 31.8 L (37-47) % MCV 91.6 (80-98) fL MCH 29.1 (27.0-33.0) pg MCHC 31.8 (31.0-35.0) g/dl RDW 13.2 (11.0-16.0) % Plt Count 206 (160-400) X10*3/uL MPV 11.3 (9.4-12.3) fL Immature Gran % (Auto) 0.2 (0.0-0.4) % Neut % (Auto) 50.7 (45-73) % Lymph % (Auto) 39.7 (20-40) % Sebastian % (Auto) 6.8 (2-11) % Eos % (Auto) 2.4 (0-4) % Baso % (Auto) 0.2 (0-2) % Lymph # (Auto) 3.5 (1.2-4.9) X10*3/uL Sebastian # (Auto) 0.6 (0.1-1.2) X10*3/uL Eos # (Auto) 0.2 (0.0-0.4) X10*3/uL Baso # (Auto) 0.0 (0.0-0.2) X10*3/uL Abs Immat Gran (auto) 0.02 (0.00-0.03) X10*3/uL Absolute Neuts (auto) 4.5 (2.0-8.3) X10*3/uL Absolute Nucleated RBC 0.000 (0.0-0.012) X10*3/uL Nucleated RBC % (auto) 0.0 (0.0-0.2) /100WBC Sodium 141 (135-145) mmol/L Potassium 4.2 (3.3-5.1) mmol/L Chloride 112 H (96-108) mmol/L Carbon Dioxide 21 L (22-29) mmol/L Anion Gap 12 (12-20) BUN 14 (9-16) mg/dL Creatinine 0.68 (0.5-1.4) mg/dL Estim Creat Clear Calc 94.4 Estimated GFR > 60 Random Glucose 81 (60-115) mg/dL Calcium 8.5 (8.4-10.2) mg/dL Discharge Plan Discharge Clinical Impression: Vasovagal syncope Patient Disposition: Home, Self-Care Instructions: Syncope (ED) Additional Instructions: Drink plenty of fluids follow up with PCP Prescriptions: No Action tramadol 50 mg tablet 50 mg PO TID PRN (Reason: pain) Qty: 9 RF: 0 dicyclomine 20 mg tablet 20 mg PO QID PRN (Reason: abdominal pain) Qty: 20 RF: 0 nitrofurantoin monohyd/m-cryst 100 mg capsule 100 mg PO Q12H 5 Days Qty: 10 RF: 0 cyclobenzaprine 5 mg tablet 5 mg PO Q8H PRN (Reason: pain (scale score 7-10)) 5 Days Qty: 14 RF: 0 acetaminophen [Tylenol Extra Strength] 500 mg tablet 500 mg PO Q6H PRN (Reason: pain or fever) Qty: 20 RF: 0 tramadol 50 mg tablet 50 mg PO Q8H PRN (Reason: severe pain (scale score 7-10)) 3 Days Qty: 9 RF: 0 bacitracin 500 unit/gram ointment 1 appl topical BID Qty: 28 RF: 0
[2021-03-03 23:00] VITALS: BP 106/73; PULSE 74; RESP 16; TEMP -17.5; TEMP 0.5
[2021-03-03 23:08] VITALS: BP 106/73; PULSE 72; RESP 18; O2SAT 100
[2021-03-03] MEDS: traMADoL HCL 50 MG TABLET PO (23:29)
== END 2021-03-04 00:20 | disposition home or self-care (01) ==
PROVIDERS: Emergency Provider Internal Medicine; PCP Nurse Practitioner
DX: R55 Syncope and collapse (principal); R51.9 Headache, unspecified; F12.90 Cannabis use, unspecified, uncomplicated
CPT/HCPCS: 36415; 70450; 80048; 85025; 93005; 96361; 96374; 96375; 99284; J2270; J2405

== ENCOUNTER 2021-09-11 20:00 | Emergency (ER) | payer OTHER, SELFPAY ==
[2021-09-11 21:10] VITALS: BP 94/64; PULSE 75; RESP 16; TEMP 36.8; O2SAT 99; BMI 35.9
== END 2021-09-12 02:23 | disposition left against medical advice (07) ==
PROVIDERS: Emergency Provider Emergency Medicine
DX: G43.909 Migraine, unspecified, not intractable, without status migrainosus (principal)
CPT/HCPCS: 99281; 99282

== ENCOUNTER 2022-01-17 09:17 | Outpatient (REF) | payer OTHER, SELFPAY ==
--- NOTE | 2022-01-17 13:12 | MHC.AU.AHA ---
Adult Audiological Evaluation Date of Visit: 01/17/22 Reason for Appointment: Audiological re-evaluation due to concern for decreased hearing. Deyanira has a long-standing history of bilateral hearing loss and hearing aid use. She notes that she has not been hearing as well lately and feels her hearing may be getting worse. She denies any changes to her medical history since her last visit. Previous Hearing Test Results: [facility] [place]- Mild sloping to moderately-severe sensorineural hearing loss bilaterally. Normal middle-ear function. QuickSIN: 7 dB SNR loss, mild difficulties understanding speech in noise. Ear History: Ear Infections in Childhood: Both Ears Previous Ear Surgery: PE tubes in childhood Bothersome Tinnitus/Ringing/Noises in Ears: Both Ears Medical History: Medical History: Migraines Medical History: Allergies/sinus problems, gastric sleeve procedure Allergies: clindamycin, adhesive tape, lamotrigine Medication List: Not provided Hearing Instrument History- Right Ear: Room Service Attendant: Sunnova Model: BlitzLocal M50-13T Serial Number: [id number] Battery Size: 13 Repair Warranty: 04/28/2022 Loss and Damage Warranty: 04/28/2022 Dispensed By: [facility] Date of Fittin02/05/2019 Hearing Instrument History- Left Ear: Room Service Attendant: Phonak Model: My Digital Shieldeo [id number] Serial Number: [id number] Battery Size: 13 Warranty: 04/28/2022 Loss and Damage Warranty: USED 12/09/2020 Dispensed By: [facility] Date of Fittin02/05/2019 Otoscopy: Right Ear: Unremarkable Left Ear: Unremarkable Tympanometry: Tympanometry performed due to: To assess integrity of the middle ear system Right Ear: Normal Middle Ear System (Type A) Left Ear: Normal Middle Ear System (Type A) Hearing Evaluation: Transducer(s) Used: Insert Earphones, Bone Conduction Method: Conventional Audiometry Stimuli Used: Pure Tones Right Ear: Description of Hearing: Mild sloping to moderate sensorineural hearing loss 250-8000 Hz. Left Ear: Description of Hearing: Mild sloping to moderate sensorineural hearing loss 250-8000 Hz. Speech Recognition Threshold (SRT): Method Used: Monitored Live Voice Stimuli Used: Spondee Words Right Ear: 25 dBHL Left Ear: 30 dBHL Word Discrimination: Method: Recorded Lists Word Lists Used: NU-6 Right Ear: 100% at 65 dBHL Left Ear: 100% at 70 dBHL QuickSIN: 3 dB SNR loss when presented binaurally at 70 dBHL, indicating normal oslypv-fz-vozin understanding abilities. Comparison: Compared to the most recent evaluation: Hearing is stable. Recommendations: Audiological re-evaluation in one year. Hearing aid maintenance performed today. Biologic check indicated weak sound quality from the hearing aids and significant cerumen and debris build-up on the hearing aids. Hearing aids were cleaned thoroughly and sound quality significantly improved. Deyanira reported improved sound quality post-cleaning and did not require and further adjustments to the hearing aids. Reviewed care and cleaning tips for the hearing aids. Recommend hearing aid maintenance in six months. Diagnosis: Primary Diagnosis: H90.3 Bilateral Sensorineural Hearing Loss Services Performed: Comprehensive Audiological Evaluation (CPT 53162) Tympanometry (CPT 18273) Signature: Provider: Evelio Green, CCC-A
== END 2022-01-17 09:18 | disposition home or self-care (01) ==
LOC: HO.SH 09:17
PROVIDERS: Visit Provider Nurse Practitioner
DX: Z01.118 Encounter for examination of ears and hearing with other abnormal findings (principal); H90.3 Sensorineural hearing loss, bilateral
CPT/HCPCS: 92557; 92567

== ENCOUNTER 2022-03-17 08:19 | Outpatient (REF) | payer OTHER, SELFPAY ==
[2022-03-17 11:27] LABS: MANUAL DIFF FLAG NO
[2022-03-17 11:50] LABS: Basophils Percent Auto 0.2 % (0-2); Eosinophils Absolute Auto 0.2 X10*3/uL (0.0-0.4); Eosinophils Percent Auto 1.9 % (0-4); Hematocrit 38.6 % (37.0-47.0); Hemoglobin 12.3 g/dl (12.0-16.0); Imm Gran Abs Auto 0.03 X10*3/uL (0.00-0.03); Imm Gran Pct Auto 0.4 % (0.0-0.4); Lymphocytes Absolute Auto 3.2 X10*3/uL (1.2-4.9); Lymphocytes Percent Auto 38.3 % (20-40); Mean Corpuscular HGB Conc 31.9 g/dl (31.0-35.0); Mean Corpuscular Hemoglobin 28.4 pg (27.0-33.0); Mean Corpuscular Volume 89.1 fL (80.0-98.0); Mean Platelet Volume 11.6 fL (9.4-12.3); Monocytes Absolute Auto 0.5 X10*3/uL (0.1-1.2); Monocytes Percent Auto 5.6 % (2-11); Neutrophils Absolute Auto 4.5 x10*3/uL (2.0-8.3); Neutrophils Percent Auto 53.6 % (45-73); Platelet Count 235 X10*3/uL (160-400); Red Blood Count 4.33 X10*6/uL (4.20-5.50); Red Cell Distribution Width 13.4 % (11.0-16.0); White Blood Count 8.4 X10*3/uL (4.8-10.8)
[2022-03-17 12:02] LABS: Alanine Aminotransferase 14 U/L (0-31); Albumin Level 4.4 g/dL (3.5-5.0); Alkaline Phosphatase 63 U/L (39-117); Anion Gap 11 (12-20); Aspartate Amino Transferase 16 U/L (5-31); Bilirubin Total 0.4 mg/dL (0.0-1.0); Blood Urea Nitrogen 16 mg/dL (9-16); Calcium 9.6 mg/dL (8.4-10.2); Carbon Dioxide 27 mmol/L (22-29); Chloride 107 mmol/L (96-108); Cholesterol 148 mg/dL; Estimated Glomerular Filt Rate > 60; Glucose Fasting 84 mg/dL (60-99); HDL Cholesterol 62 mg/dL; LDL Cholesterol Calculated 73 mg/dl; Potassium 4.4 mmol/L (3.3-5.1); Sodium 141 mmol/L (135-145); Total Protein 7.2 g/dL (6.5-8.0); Triglycerides 68 mg/dL
[2022-03-17 12:12] LABS: TSH reflex Free T4 0.95 uIU/mL (0.32-4.0)
[2022-03-17 12:54] LABS: Appearance Urine CLEAR; Color Urine STRAW; Glucose Urine UA NEG (NEG); Leukocyte Esterase Urine NEG (NEG); Nitrite Urine NEG (NEG); Specific Gravity - Urine <= 1.005 (1.005-1.025); UACC Culture Trigger NO; Urine Blood TRACE (NEG); Urine Ketones NEG (NEG); Urine Protein NEG (NEG-TRACE)
[2022-03-17 13:15] LABS: RBC Urine 0-2 /HPF (0); Squamous Epithelial Cell Urine 1+ /LPF; WBC Urine 0 /HPF (0-4)
== END 2022-03-17 08:20 | disposition home or self-care (01) ==
LOC: HO.HMGCLDS 08:19
PROVIDERS: PCP Nurse Practitioner Family; Visit Provider Nurse Practitioner Family
DX: Z00.00 Encounter for general adult medical examination without abnormal findings (principal)
CPT/HCPCS: 36415; 80053; 80061; 81001; 81003; 84443; 85025

== ENCOUNTER 2022-05-28 08:06 | Outpatient (REF) | payer OTHER, SELFPAY ==
[2022-05-30 22:52] LABS: TS Negative Control Passed; TS Panel A 0; TS Panel B 0; TS Positive Control Passed; TSpotTB Negative (Negative)
== END 2022-05-28 08:07 | disposition home or self-care (01) ==
LOC: HO.HMGCLDS 08:06
PROVIDERS: PCP Nurse Practitioner Family; Visit Provider Nurse Practitioner Family
DX: Z11.1 Encounter for screening for respiratory tuberculosis (principal)
CPT/HCPCS: 36415; 86481

== ENCOUNTER → 2022-06-22 19:30 | Outpatient (REF) | payer OTHER, SELFPAY | LOC: HO.SL 19:30 | PROVIDERS: PCP Nurse Practitioner Family; Visit Provider Nurse Practitioner Family | DX: R06.83 Snoring (principal) | CPT/HCPCS: 95810 ==

== ENCOUNTER → 2022-07-11 14:47 | Outpatient (BNVA) | payer OTHER, SELFPAY | PROVIDERS: PCP Nurse Practitioner Family; Visit Provider Nurse Practitioner Family | DX: G43.009 Migraine without aura, not intractable, without status migrainosus (principal); R40.0 Somnolence; G47.00 Insomnia, unspecified | CPT/HCPCS: 99212 ==

== ENCOUNTER 2022-07-12 09:00 | Outpatient (REF) | payer OTHER, SELFPAY ==
[2022-07-12 12:15] LABS: Folate 4.3 ng/mL (> or = 4.0); Vitamin B12 312 pg/mL (200-900)
[2022-07-17 15:56] LABS: Vitamin D 25-OH, D2 12 ng/mL; Vitamin D 25-OH, D3 18 ng/mL; Vitamin D 25-OH, Total 30 ng/mL (30-100)
== END 2022-07-12 09:01 | disposition home or self-care (01) ==
LOC: HO.HMGCLDS 09:00
PROVIDERS: PCP Nurse Practitioner Family; Visit Provider Nurse Practitioner Family
DX: G47.10 Hypersomnia, unspecified (principal); R53.83 Other fatigue; R40.0 Somnolence
CPT/HCPCS: 36415; 82306; 82607; 82746

== ENCOUNTER → 2022-09-12 07:54 | Outpatient (BNVA) | payer OTHER, SELFPAY | PROVIDERS: PCP Nurse Practitioner Family; Visit Provider Nurse Practitioner Family | DX: G47.00 Insomnia, unspecified (principal); G47.19 Other hypersomnia; R53.83 Other fatigue; R40.0 Somnolence; G43.009 Migraine without aura, not intractable, without status migrainosus | CPT/HCPCS: 99212 ==

== ENCOUNTER 2022-11-28 06:41 | Outpatient (REF) | payer OTHER, SELFPAY ==
[2022-11-28 11:13] LABS: MANUAL DIFF FLAG NO
[2022-11-28 11:17] LABS: Basophils Absolute Auto 0.1 X10*3/uL (0.0-0.2); Basophils Percent Auto 0.5 % (0-2); Eosinophils Absolute Auto 0.2 X10*3/uL (0.0-0.4); Eosinophils Percent Auto 1.5 % (0-4); Hematocrit 37.9 % (37.0-47.0); Hemoglobin 12.3 g/dl (12.0-16.0); Imm Gran Abs Auto 0.05 X10*3/uL (0.00-0.03); Imm Gran Pct Auto 0.5 % (0.0-0.4); Immature Retic Fraction 16.9 % (3.0-15.9); Lymphocytes Absolute Auto 3.7 X10*3/uL (1.2-4.9); Lymphocytes Percent Auto 37.8 % (20-40); Mean Corpuscular HGB Conc 32.5 g/dl (31.0-35.0); Mean Corpuscular Hemoglobin 28.7 pg (27.0-33.0); Mean Corpuscular Volume 88.3 fL (80.0-98.0); Mean Platelet Volume 11.9 fL (9.4-12.3); Monocytes Absolute Auto 0.6 X10*3/uL (0.1-1.2); Monocytes Percent Auto 6.2 % (2-11); Neutrophils Absolute Auto 5.3 x10*3/uL (2.0-8.3); Neutrophils Percent Auto 53.5 % (45-73); Platelet Count 252 X10*3/uL (160-400); Red Blood Count 4.29 X10*6/uL (4.20-5.50); Red Cell Distribution Width 14.4 % (11.0-16.0); Reticulocytes Absolute 0.087 X10*6/uL (0.026-0.095); White Blood Count 9.9 X10*3/uL (4.8-10.8)
[2022-11-28 12:00] LABS: Alanine Aminotransferase 13 U/L (0-31); Albumin Level 3.8 g/dL (3.5-5.0); Alkaline Phosphatase 77 U/L (39-117); Anion Gap 12 (12-20); Aspartate Amino Transferase 12 U/L (5-31); Bilirubin Total 0.3 mg/dL (0.0-1.0); Blood Urea Nitrogen 12 mg/dL (9-16); Calcium 8.7 mg/dL (8.4-10.2); Carbon Dioxide 22 mmol/L (22-29); Chloride 113 mmol/L (96-108); Cholesterol 134 mg/dL; Estimated Glomerular Filt Rate > 60; Glucose Fasting 81 mg/dL (60-99); Glucose Random 80 mg/dL (60-115); HDL Cholesterol 56 mg/dL; Iron 35 mcg/dL (30-160); LDL Cholesterol Calculated 69 mg/dl; Percent Iron Saturation 10 % (15-50); Potassium 3.9 mmol/L (3.3-5.1); Sodium 143 mmol/L (135-145); Total Iron Binding Capacity 337 mcg/dL (228-428); Total Protein 6.4 g/dL (6.5-8.0); Triglycerides 45 mg/dL; Unsaturated Iron Binding 302 ug/dL
[2022-11-28 12:11] LABS: Ferritin 23 ng/mL (10-122); Folate 3.9 ng/mL (> or = 4.0); Vitamin B12 244 pg/mL (200-900)
== END 2022-11-28 06:42 | disposition home or self-care (01) ==
LOC: HO.HMGCLDS 06:41
PROVIDERS: PCP Nurse Practitioner Family; Visit Provider Nurse Practitioner Family
DX: F41.9 Anxiety disorder, unspecified (principal); E61.1 Iron deficiency
CPT/HCPCS: 36415; 80053; 80061; 82607; 82728; 82746; 83540; 84443; 85025; 85045

== ENCOUNTER 2022-12-01 08:32 | Outpatient (REF) | payer OTHER, SELFPAY ==
--- NOTE | ~2022-12-01 | XR_ITS ---
EXAMINATION: XR KNEE, RIGHT CLINICAL INFORMATION: M25.561 - Pain in right knee COMPARISON: None TECHNIQUE: Upright AP and lateral views of the right knee. FINDINGS: Normal bony mineralization. No fracture, dislocation, or destructive process. No joint narrowing or erosive change or chondrocalcinosis. Hoffa's fat pad appears normal. There is borderline thickening suprapatellar bursa which may represent trace effusion. XR/XR knee RT 2V IMPRESSION: 1. Trace suprapatellar effusion. 2. No fracture, dislocation, or arthropathy.
== END 2022-12-01 08:33 | disposition home or self-care (01) ==
LOC: HO.HMGCX 08:32
PROVIDERS: PCP Nurse Practitioner Family; Visit Provider Nurse Practitioner Family
DX: M25.561 Pain in right knee (principal)
CPT/HCPCS: 73560

== ENCOUNTER → 2023-01-30 10:53 | Outpatient (BNVA) | payer BC, OTHER, SELFPAY | PROVIDERS: PCP Nurse Practitioner; Visit Provider Nurse Practitioner Family | DX: Z13.89 Encounter for screening for other disorder (principal) ==

== ENCOUNTER → 2023-03-05 07:20 | Outpatient (BNVA) | payer BC, SELFPAY | PROVIDERS: PCP Nurse Practitioner; Visit Provider Nurse Practitioner Family ==

== ENCOUNTER 2023-08-15 09:57 | Outpatient (AMB) | payer BC, MEDICAID, SELFPAY ==
--- NOTE | 2023-08-15 10:00 | A.OFFVIS_ITS ---
Intake Vital Signs 08/15/23 10:03 Height 4 ft 8 in Weight 179 lb BMI 40.1 BP 122/72 Blood Pressure Location Rt brachial Position Sitting Respiration 16 Pulse 93 Pulse Source Pulse Oximeter Pulse Oximetry (%) 99 Oxygen Delivery Method Room Air Intake Visit Reasons: Botox appt Intake Note: Pt presents to the office for Botox injections. 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 Required: No Allergies clindamycin [CLINDAMYCIN] Allergy (Severe, Verified 08/15/23 10:00) ANAPHALAXIS venlafaxine [From Effexor] Allergy (Mild, Verified 08/15/23 10:00) Unknown adhesive tape Allergy (Unknown, Verified 08/15/23 10:00) CHANGES COLOR OF SKIN PERMANENTLY lamotrigine [From Lamictal] Adverse Reaction (Verified 08/15/23 10:00) Unknown Clindamycin HCl Allergy (Unknown, Uncoded 08/15/23 10:00) unknown Medication List - Last Reconciled 08/15/23 by Fabiana Pinto MD armodafinil 250 mg PO QAM 30 days baclofen 10 mg (2 x 5 mg) PO BID PRN 30 days cariprazine (Vraylar) 1.5 mg PO DAILY cholecalciferol (vitamin D3) 125 mcg PO QWEEK 12 weeks erenumab-aooe (Aimovig Autoinjector) 140 mg subcut ONCE 30 days etonogestrel (Nexplanon) subdermal lamotrigine 50 mg PO DAILY magnesium oxide 400 mg PO BEDTIME 30 days melatonin 5 mg PO BEDTIME PRN 30 days onabotulinumtoxinA (Botox) 200 units IM ONCE 12 weeks pregabalin 150 mg PO BID 30 days quetiapine 75 mg PO BEDTIME riboflavin (vitamin B2) 400 mg PO DAILY 30 days rizatriptan 5 - 10 mg (0.5 - 1 x 10 mg) PO Q2H PRN 21 days semaglutide (weight loss) (Wegovy) 0.25 mg (0.5 mL) subcut QWEEK 30 days sumatriptan succinate 6 mg (0.5 mL) subcut ONCE PRN 28 days topiramate 200 mg PO DAILY 30 days topiramate 100 mg (2 x 50 mg) PO BID 30 days valacyclovir 500 mg PO DAILY ziprasidone HCl 80 mg PO BEDTIME zolmitriptan take 1 tab at onset of headache; if no relief, may repeat 1 tab after at least 2 hrs; max = 2 tabs/24 hrs PO 21 days HPI HPI Comments History of Present Illness Details ? 33y/o female comes for treatment of migraines with botox. ??? Most frequent reported adverse reactions following injection of botox for chronic migraine include neck pain (9%), headache(5%), eyelid ptosis(4%), migraine(4%), muscular weakness(4%), musculuskeletal stiffness(4%), bronchitis(3%), injection site pain (3%), musculoskeletal pain(3%), myalgia(3%), facial paresis(2%), HTN(2%) and muscle spasms(2%) were discussed in detail. ??? Botulinum toxin typeA 200units Lot no [id number] expiration Nov 2025 was diluted with 4 cc of normal saline . ??? Muscles injected- ??? Frontalis 4 sites ??? Procerus 1 site ??? Admission Nurse Coordinator- 2 sites ??? Temporalis- 8 sites ??? Occipitalis- 6 sites ??? Cervical paraspinals- 4 sites ??? Trapezius- 6 sites- 10 units each ??? 5 units each in 31 site ??? Total use- 185units ??? Discarded-15units PFSH Medical History (Updated 08/15/23 @ 10:31 by Fabiana Pinto MD) Chronic migraine without aura [place] (hard of hearing) Bipolar depression Insomnia H/O migraine Asthma Fibromyalgia Anxiety Surgical History Hx of cholecystectomy Hx of eye surgery Hx of eye surgery Hx of eye surgery Bariatric surgery status Family History Father Substance use disorder Mental health disorder Mother Substance use disorder Mental health disorder Social History Housing: Apartment Alcohol intake: current Alcohol intake frequency: holidays/special occasions only Patient Tobacco Use Status: Former Tobacco user e-Cigarette/Vaping Use: Currently Using service: No Current occupational status: employed Cognitive needs: No Hearing needs: No Vision needs: Yes Physical Exam Vital Signs: Last Vital Signs Pulse 93 08/15/23 10:03 Resp 16 08/15/23 10:03 BP 122/72 08/15/23 10:03 Pulse Ox 99 08/15/23 10:03 Oxygen Delivery Method Room Air 08/15/23 10:03 BMI result Body Mass Index 40.1 Const General: cooperative and no acute distress Orientation/consciousness: patient oriented x3 HEENT Head: Yes normocephalic Resp Effort & Inspection: normal respiratory effort and able to speak in complete sentences Neuro General: patient oriented x3, gait normal and CN's II-XI intact bilaterally Cognition (Neuro): normal cognition Motor exam (neuro): 5/5 motor strength present throughout Psych Appearance: grossly normal Mental Status: mental status grossly normal Speech and movement: Normal speech and movement present Affect: normal affect Attitude: cooperative Thought process: Normal thought process present Thought content: Normal thought content present Insight: Good insight present (Psych) Judgement: Good judgement present (Psych) Office Procedures Botulinum toxin Injection 37984 - Migraine Procedure code (CPT) selection complete Office Meds onabotulinumtoxinA 200 unit solution for injection Performing Provider: Fabiana Pinto MD Performing Location: [facility] [place] [facility] Administered by: Fabiana Pinto MD on 08/15/23 10:33 Dose Route Admin Location Dispensed Lot Number Expiration Date [facility] Processes Chemical Design Engineer 185 unit subcut 200 units [id number] 11/07/25 3840-2361-26 ALLERGAN/BOTOX Comments: see HPI Assessment & Plan Assessment & Plan (1) Chronic migraine without aura: Code(s): G43.709 - Chronic migraine without aura, not intractable, without status migrainosus Plan Patient tolerated the procedure well SHe will call with any side effects Orders: Orders AMB Botulinum toxin Injection Today G43.709 - Chronic migraine without aura, not intractable, without status migrainosus Coding Level of Care Code Est Pt Level 1 (24874) Diagnoses Chronic migraine without aura G43.709 CPT Codes Botox Injection - Botox 3: 38950 - Migraine ([id number])
[2023-08-15 10:03] VITALS: BP 122/72; PULSE 93; RESP 16; O2SAT 99; BMI 40.1
== END 2023-08-15 10:40 | disposition home or self-care (01) ==
PROVIDERS: PCP Nurse Practitioner; Visit Provider Psychiatry & Neurology Neurology
DX: G43.709 Chronic migraine without aura, not intractable, without status migrainosus (principal)
CPT/HCPCS: 64615

== ENCOUNTER → 2023-08-15 09:57 | Outpatient (BNVA) | payer BC, SELFPAY | PROVIDERS: PCP Nurse Practitioner; Visit Provider Psychiatry & Neurology Neurology | DX: G43.709 Chronic migraine without aura, not intractable, without status migrainosus (principal) | CPT/HCPCS: 64615; 99211; J0585 ==

== ENCOUNTER 2024-01-27 07:55 | Outpatient (AMB) | payer BC, OTHER, SELFPAY ==
--- NOTE | 2024-01-27 07:57 | MHC.OFFVIS ---
Vital Signs 01/27/24 08:01 Height 4 ft 8 in Weight 177 lb BMI 39.7 BP 122/60 Blood Pressure Location Rt brachial Position Sitting Respiration 16 Pulse 97 Pulse Source Pulse Oximeter Pulse Oximetry (%) 100 Oxygen Delivery Method Room Air Intake Visit Reasons: Botox-LVM Intake Note: Pt presents to the office for Botox injections. 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 Required: No Allergies clindamycin [CLINDAMYCIN] Allergy (Severe, Verified 01/27/24 08:08) ANAPHALAXIS amoxicillin Allergy (Intermediate, Verified 01/27/24 08:08) Swelling venlafaxine [From Effexor] Allergy (Mild, Verified 01/27/24 08:08) Unknown adhesive tape Allergy (Unknown, Verified 01/27/24 08:08) CHANGES COLOR OF SKIN PERMANENTLY lamotrigine [From Lamictal] Adverse Reaction (Verified 01/27/24 08:08) Unknown Clindamycin HCl Allergy (Unknown, Uncoded 01/27/24 07:57) unknown Medication List - Last Reconciled 01/27/24 by Fabiana Pinto MD armodafinil 250 mg PO QAM 30 days baclofen 10 mg (2 x 5 mg) PO BID PRN 30 days cariprazine (Vraylar) 1.5 mg PO DAILY cholecalciferol (vitamin D3) 125 mcg PO QWEEK 12 weeks eletriptan take 1 tab at onset of headache; if no relief, may repeat 1 tab after at least 2 hrs; max = 2 tabs/24 hrs orally PRN; 30 days erenumab-aooe (Aimovig Autoinjector) 140 mg subcut ONCE 30 days etonogestrel (Nexplanon) subdermal lamotrigine 50 mg PO DAILY magnesium oxide 400 mg PO BEDTIME 30 days melatonin 5 mg PO BEDTIME PRN 90 days onabotulinumtoxinA (Botox) 200 units IM ONCE 12 weeks pregabalin 150 mg PO BID 30 days prochlorperazine maleate (Compazine) 10 mg PO Q8H PRN 7 days riboflavin (vitamin B2) 400 mg PO DAILY 30 days rizatriptan 5 - 10 mg (0.5 - 1 x 10 mg) PO Q2H PRN 21 days semaglutide (weight loss) (Wegovy) 0.25 mg (0.5 mL) subcut QWEEK 30 days sumatriptan succinate 6 mg (0.5 mL) subcut ONCE PRN 28 days topiramate 100 mg (2 x 50 mg) PO BID 30 days topiramate XR 200 mg PO DAILY 30 days ubrogepant (Ubrelvy) 50 - 100 mg (0.5 - 1 x 100 mg) PO ONCE PRN 30 days valacyclovir 500 mg PO DAILY ziprasidone HCl 80 mg PO BEDTIME zolmitriptan take 1 tab at onset of headache; if no relief, may repeat 1 tab after at least 2 hrs; max = 2 tabs/24 hrs PO 21 days HPI Comments Details: ? 34y/o female comes for treatment of migraines with botox. ??? Most frequent reported adverse reactions following injection of botox for chronic migraine include neck pain (9%), headache(5%), eyelid ptosis(4%), migraine(4%), muscular weakness(4%), musculuskeletal stiffness(4%), bronchitis(3%), injection site pain (3%), musculoskeletal pain(3%), myalgia(3%), facial paresis(2%), HTN(2%) and muscle spasms(2%) were discussed in detail. ??? Botulinum toxin typeA 200units Lot no [id number] expiration March 2026 was diluted with 4 cc of normal saline . ??? Muscles injected- ??? Frontalis 4 sites ??? Procerus 1 site ??? Brake Lining Finisher Asbestos- 2 sites ??? Temporalis- 8 sites ??? Occipitalis- 6 sites ??? Cervical paraspinals- 4 sites ??? Trapezius- 6 sites- 10 units each ??? 5 units each in 31 site ??? Total use- 185units ??? Discarded-15units PFSH Medical History Chronic migraine without aura [place] (hard of hearing) Bipolar depression Insomnia H/O migraine Asthma Fibromyalgia Anxiety Surgical History Hx of cholecystectomy Hx of eye surgery Hx of eye surgery Hx of eye surgery Bariatric surgery status Family History Father Substance use disorder Mental health disorder Mother Substance use disorder Mental health disorder Social History Housing: Apartment Alcohol intake: current Alcohol intake frequency: holidays/special occasions only Patient Tobacco Use Status: Former Tobacco user e-Cigarette/Vaping Use: Currently Using service: No Current occupational status: employed Cognitive needs: No Hearing needs: No Vision needs: Yes Physical Exam Vital Signs: Last Vital Signs Pulse 97 01/27/24 08:01 Resp 16 01/27/24 08:01 BP 122/60 01/27/24 08:01 Pulse Ox 100 01/27/24 08:01 Oxygen Delivery Method Room Air 01/27/24 08:01 BMI result Body Mass Index 39.7 Const General: cooperative and no acute distress Orientation/consciousness: patient oriented x3 HEENT Head: Yes normocephalic Resp Effort & Inspection: normal respiratory effort and able to speak in complete sentences Neuro General: patient oriented x3, gait normal and CN's II-XI intact bilaterally Cognition (Neuro): normal cognition Motor exam (neuro): 5/5 motor strength present throughout Psych Appearance: grossly normal Mental Status: mental status grossly normal Speech and movement: Normal speech and movement present Affect: normal affect Attitude: cooperative Thought process: Normal thought process present Thought content: Normal thought content present Insight: Good insight present (Psych) Judgement: Good judgement present (Psych) Office Procedures Botulinum toxin Injection 91312 - Migraine Procedure code (CPT) selection complete Office Meds onabotulinumtoxinA 200 unit solution for injection Performing Provider: Fabiana Pinto MD Performing Location[place] [facility] [place] [facility] Administered by: Fabiana Pinto MD on 01/27/24 15:02 Dose Route Admin Location Dispensed Lot Number Expiration Date [facility] Surgical Garment Assembler 185 unit subcut 200 units [id number] 03/07/26 1513-0266-02 ALLERGAN/BOTOX Comments: see HPI Assessment & Plan Assessment & Plan (1) Chronic migraine without aura: Code(s): G43.709 - Chronic migraine without aura, not intractable, without status migrainosus Category: Medical Plan Patient tolerated the procedure well SHe will call with any side effects Orders: Orders AMB Botulinum toxin Injection Today G43.709 - Chronic migraine without aura, not intractable, without status migrainosus Medications: New eszopiclone (Lunesta) 1 mg PO BEDTIME 30 tabs 2RF onabotulinumtoxinA 200 units subcut ONCE 1 ea 0RF migraine G43.709 - Chronic migraine without aura, not intractable, without status migrainosus
[2024-01-27 08:01] VITALS: BP 122/60; PULSE 97; RESP 16; O2SAT 100; BMI 39.7
== END 2024-01-27 08:31 | disposition home or self-care (01) ==
PROVIDERS: PCP Nurse Practitioner; Visit Provider Psychiatry & Neurology Neurology
DX: G43.709 Chronic migraine without aura, not intractable, without status migrainosus (principal)
CPT/HCPCS: 64615

== ENCOUNTER → 2024-01-27 07:55 | Outpatient (BNVA) | payer BC, OTHER, SELFPAY | PROVIDERS: PCP Nurse Practitioner; Visit Provider Psychiatry & Neurology Neurology | DX: G43.709 Chronic migraine without aura, not intractable, without status migrainosus (principal) | CPT/HCPCS: 64615; 99211; J0585 ==

== ENCOUNTER → 2024-04-27 07:56 | Outpatient (BNVA) | payer BC, SELFPAY | PROVIDERS: PCP Nurse Practitioner; Visit Provider Psychiatry & Neurology Neurology ==

== ENCOUNTER 2024-05-04 08:15 | Outpatient (AMB) | payer BC, SELFPAY ==
[2024-05-04 08:21] VITALS: BMI 39.5
--- NOTE | 2024-05-04 08:21 | MHC.OFFVIS ---
Vital Signs 05/04/24 08:21 Height 4 ft 8 in Weight 176 lb BMI 39.5 Intake Visit Reasons: Botox Intake Note: Patient presents for botox injection. Allergies clindamycin [CLINDAMYCIN] Allergy (Severe, Verified 05/04/24 08:22) ANAPHALAXIS amoxicillin Allergy (Intermediate, Verified 05/04/24 08:22) Swelling venlafaxine [From Effexor] Allergy (Mild, Verified 05/04/24 08:22) Unknown adhesive tape Allergy (Unknown, Verified 05/04/24 08:22) CHANGES COLOR OF SKIN PERMANENTLY lamotrigine [From Lamictal] Adverse Reaction (Verified 05/04/24 08:22) Unknown Clindamycin HCl Allergy (Unknown, Uncoded 05/04/24 08:22) unknown Medication List - Last Reconciled 05/04/24 by Fabiana Pinto MD armodafinil 250 mg PO QAM 30 days baclofen 10 mg (2 x 5 mg) PO BID PRN 30 days cariprazine (Vraylar) 1.5 mg PO DAILY cholecalciferol (vitamin D3) 125 mcg PO QWEEK 12 weeks dicyclomine 10 mg PO QID eszopiclone (Lunesta) 2 mg PO BEDTIME 30 days etonogestrel (Nexplanon) subdermal famotidine 20 mg PO BID fluticasone furoate 27.5 mcg/actuation 1 spray intranasal DAILY lamotrigine 50 mg PO DAILY [id number] 36,000-114,000- 180,000 unit (Creon) 1 cap PO BID melatonin 5 mg PO BEDTIME PRN 90 days onabotulinumtoxinA (Botox) 200 units IM ONCE 12 weeks prochlorperazine maleate (Compazine) 10 mg PO Q8H PRN 30 days quetiapine 100 mg PO DAILY ubrogepant (Ubrelvy) 50 - 100 mg (0.5 - 1 x 100 mg) PO ONCE PRN 30 days valacyclovir 500 mg PO DAILY HPI Comments Details: ? 34y/o female comes for treatment of migraines with botox. ??? Most frequent reported adverse reactions following injection of botox for chronic migraine include neck pain (9%), headache(5%), eyelid ptosis(4%), migraine(4%), muscular weakness(4%), musculuskeletal stiffness(4%), bronchitis(3%), injection site pain (3%), musculoskeletal pain(3%), myalgia(3%), facial paresis(2%), HTN(2%) and muscle spasms(2%) were discussed in detail. ??? Botulinum toxin typeA 200units Lot no [id number] expiration May 2026 was diluted with 4 cc of normal saline . ??? Muscles injected- ??? Frontalis 4 sites ??? Procerus 1 site ??? Pail Bailer- 2 sites ??? Temporalis- 8 sites ??? Occipitalis- 6 sites ??? Cervical paraspinals- 4 sites ??? Trapezius- 6 sites- 10 units each ??? 5 units each in 31 site ??? Total use- 185units ??? Discarded-15units [facility] Medical History (Updated 05/04/24 @ 08:57 by Fabiana Pinto MD) Chronic migraine without aura, intractable, without status migrainosus Chronic migraine without aura [place] (hard of hearing) Bipolar depression Insomnia H/O migraine Asthma Fibromyalgia Anxiety Surgical History Hx of cholecystectomy Hx of eye surgery Hx of eye surgery Hx of eye surgery Bariatric surgery status Family History Father Substance use disorder Mental health disorder Mother Substance use disorder Mental health disorder Social History Housing: Apartment Alcohol intake: current Alcohol intake frequency: holidays/special occasions only Patient Tobacco Use Status: Former Tobacco user e-Cigarette/Vaping Use: Currently Using service: No Current occupational status: employed Cognitive needs: No Hearing needs: No Vision needs: Yes Physical Exam Vital Signs: BMI result Body Mass Index 39.5 Const General: cooperative and no acute distress Orientation/consciousness: patient oriented x3 HEENT Head: Yes normocephalic Resp Effort & Inspection: normal respiratory effort and able to speak in complete sentences Neuro General: patient oriented x3, gait normal and CN's II-XI intact bilaterally Cognition (Neuro): normal cognition Motor exam (neuro): 5/5 motor strength present throughout Psych Appearance: grossly normal Mental Status: mental status grossly normal Speech and movement: Normal speech and movement present Affect: normal affect Attitude: cooperative Thought process: Normal thought process present Thought content: Normal thought content present Insight: Good insight present (Psych) Judgement: Good judgement present (Psych) Office Procedures Botulinum toxin Injection 42341 - Migraine Procedure code (CPT) selection complete Office Meds onabotulinumtoxinA 200 unit solution for injection Performing Provider: Fabiana Pinto MD Performing Location[place] [facility] Administered by: Fabiana Pinto MD on 05/04/24 09:00 Dose Route Admin Location Dispensed Lot Number Expiration Date [facility] Spray Crew 185 unit subcut 200 units [id number] 05/07/26 9045-3257-01 ALLERGAN/BOTOX Comments: see HPI Assessment & Plan Assessment & Plan (1) Chronic migraine without aura, intractable, without status migrainosus: Code(s): G43.719 - Chronic migraine without aura, intractable, without status migrainosus Category: Medical Plan Patient tolerated the procedure well SHe will call with any side effects Orders: Orders AMB Botulinum toxin Injection Today G43.719 - Chronic migraine without aura, intractable, without status migrainosus Medications: New onabotulinumtoxinA 200 units subcut ONCE 1 ea 0RF migraine G43.719 - Chronic migraine without aura, intractable, without status migrainosus Coding Level of Care Code Est Pt Level 1 (62209) Diagnoses Chronic migraine without aura, intractable, without status migrainosus G43.719 CPT Codes Botox Injection - Botox 3: 41646 - Migraine ([id number])
== END 2024-05-04 09:25 | disposition home or self-care (01) ==
PROVIDERS: PCP Nurse Practitioner; Visit Provider Psychiatry & Neurology Neurology
DX: G43.719 Chronic migraine without aura, intractable, without status migrainosus (principal)
CPT/HCPCS: 64615

== ENCOUNTER → 2024-05-04 08:15 | Outpatient (BNVA) | payer BC, SELFPAY | PROVIDERS: PCP Nurse Practitioner; Visit Provider Psychiatry & Neurology Neurology | DX: G43.719 Chronic migraine without aura, intractable, without status migrainosus (principal) | CPT/HCPCS: 64615; 99211; J0585 ==

== ENCOUNTER 2024-08-17 14:49 | Outpatient (AMB) | payer BC, SELFPAY ==
--- NOTE | 2024-08-17 14:51 | A.OFFVIS_ITS ---
Vital Signs 08/17/24 14:51 Height 4 ft 8 in Intake Visit Reasons: BOTOX Intake Note: Patient presents for follow up Allergies clindamycin [CLINDAMYCIN] Allergy (Severe, Verified 08/17/24 14:55) ANAPHALAXIS amoxicillin Allergy (Intermediate, Verified 08/17/24 14:55) Swelling venlafaxine [From Effexor] Allergy (Mild, Verified 08/17/24 14:55) Unknown adhesive tape Allergy (Unknown, Verified 08/17/24 14:55) CHANGES COLOR OF SKIN PERMANENTLY lamotrigine [From Lamictal] Adverse Reaction (Verified 08/17/24 14:55) Unknown Clindamycin HCl Allergy (Unknown, Uncoded 08/17/24 14:55) unknown Medication List - Last Reconciled 08/17/24 by Fabiana Pinto MD armodafinil 250 mg PO QAM 30 days baclofen 10 mg (2 x 5 mg) PO BID PRN 30 days cariprazine (Vraylar) 1.5 mg PO DAILY cholecalciferol (vitamin D3) 125 mcg PO QWEEK 12 weeks dicyclomine 10 mg PO QID eszopiclone (Lunesta) 2 mg PO BEDTIME 30 days etonogestrel (Nexplanon) subdermal famotidine 20 mg PO BID fluticasone furoate 27.5 mcg/actuation 1 spray intranasal DAILY lamotrigine 50 mg PO DAILY [id number] 36,000-114,000- 180,000 unit (Creon) 1 cap PO BID melatonin 5 mg PO BEDTIME PRN 90 days onabotulinumtoxinA (Botox) 200 units IM ONCE 12 weeks prochlorperazine maleate (Compazine) 10 mg PO Q8H PRN 30 days quetiapine 100 mg PO DAILY ubrogepant (Ubrelvy) 50 - 100 mg (0.5 - 1 x 100 mg) PO ONCE PRN 30 days valacyclovir 500 mg PO DAILY HPI Comments Details: ? 34y/o female comes for treatment of migraines with botox. ??? Most frequent reported adverse reactions following injection of botox for chronic migraine include neck pain (9%), headache(5%), eyelid ptosis(4%), migraine(4%), muscular weakness(4%), musculuskeletal stiffness(4%), bronchitis(3%), injection site pain (3%), musculoskeletal pain(3%), myalgia(3%), facial paresis(2%), HTN(2%) and muscle spasms(2%) were discussed in detail. ??? Botulinum toxin typeA 200units Lot no [id number] expiration Nov 2026 was diluted with 4 cc of normal saline . ??? Muscles injected- ??? Frontalis 4 sites ??? Procerus 1 site ??? Acquisitions Editor- 2 sites ??? Temporalis- 8 sites ??? Occipitalis- 6 sites ??? Cervical paraspinals- 4 sites ??? Trapezius- 6 sites- 10 units each ??? 5 units each in 31 site ??? Total use- 185units ??? Discarded-15units PFSH Medical History Chronic migraine without aura, intractable, without status migrainosus Chronic migraine without aura [place] (hard of hearing) Bipolar depression Insomnia H/O migraine Asthma Fibromyalgia Anxiety Surgical History Hx of cholecystectomy Hx of eye surgery Hx of eye surgery Hx of eye surgery Bariatric surgery status Family History Father Substance use disorder Mental health disorder Mother Substance use disorder Mental health disorder Social History Housing: Apartment Alcohol intake: current Alcohol intake frequency: holidays/special occasions only Patient Tobacco Use Status: Former Tobacco user e-Cigarette/Vaping Use: Currently Using service: No Current occupational status: employed Cognitive needs: No Hearing needs: No Vision needs: Yes Physical Exam Const General: cooperative and no acute distress Orientation/consciousness: patient oriented x3 HEENT Head: Yes normocephalic Resp Effort & Inspection: normal respiratory effort and able to speak in complete sentences Neuro General: patient oriented x3, gait normal and CN's II-XI intact bilaterally Cognition (Neuro): normal cognition Motor exam (neuro): 5/5 motor strength present throughout Office Procedures Botulinum toxin Injection 38802 - Migraine Procedure code (CPT) selection complete Office Meds onabotulinumtoxinA 200 unit solution for injection Performing Provider: Fabiana Pinto MD Performing Location: [facility] [place] [facility] Administered by: Fabiana Pinto MD on 08/17/24 15:35 Dose Route Admin Location Dispensed Lot Number Expiration Date [facility] Dirt Shoveler 185 unit subcut 200 units [id number] 11/07/26 3277-2162-04 ALLERGAN/BOTOX Comments: see HPI Assessment & Plan Assessment & Plan (1) Chronic migraine without aura, intractable, without status migrainosus: Code(s): G43.719 - Chronic migraine without aura, intractable, without status migrainosus Category: Medical Plan Patient tolerated the procedure well SHe will call with any side effects Orders: Orders AMB Botulinum toxin Injection Today G43.719 - Chronic migraine without aura, intractable, without status migrainosus Coding Level of Care Code Est Pt Level 1 (34167) Diagnoses Chronic migraine without aura, intractable, without status migrainosus G43.719 CPT Codes Botox Injection - Botox 3: 96823 - Migraine ([id number])
== END 2024-08-17 15:21 | disposition home or self-care (01) ==
PROVIDERS: PCP Nurse Practitioner; Visit Provider Psychiatry & Neurology Neurology
DX: G43.719 Chronic migraine without aura, intractable, without status migrainosus (principal)
CPT/HCPCS: 64615

== ENCOUNTER → 2024-08-17 14:49 | Outpatient (BNVA) | payer BC, SELFPAY | PROVIDERS: PCP Nurse Practitioner; Visit Provider Psychiatry & Neurology Neurology | DX: G43.719 Chronic migraine without aura, intractable, without status migrainosus (principal) | CPT/HCPCS: 64615; 99211; J0585 ==

== ENCOUNTER 2024-11-10 08:20 | Outpatient (AMB) | payer BC, SELFPAY ==
--- OUTSIDE RECORDS SUMMARY | 2024-11-10 08:29 | XMS_ITS | Data Portability ---
Author Organization [employer], [facility] Address [address] [place] [address], [facility] [address] [place] [address] Care Team Providers Care Transportation Dispatcher Name Role Phone BENJAMIN MENJIVAR Primary Care Provider Assessment Encounter Date Assessment Date Assessment LastModified by Organization Details LastModified Time 05/21/2024 05/21/2024 I met with the patient today and talked about the 4 pillars of treatment of obesity medicine. Behavior modification, nutrition support, physical activity and medication management. Nutrition support-I offered the patient to see one of our dietitians who specializes in nutritional support for patient to try and achieve weight loss. I offered some basic insight including the importance of protein intake, fiber intake, hydration and well-balanced meals. Patient is in the process of getting set up with a dietitian through her bariatric surgeon Finally we talked at length about different medication options for the treatment of obesity. Phentermine is a stimulant that is readily available, inexpensive and helps by suppressing appetite. Side effects include blood pressure variability, irritability and insomnia. Patients can expect to experience 5 to 10% weight loss with phentermine Topamax/topiramate is an antiseizure/antihe adache medication that is used off label to help with weight loss. It works by decreasing the hunger response in individuals. It is inexpensive and widely available. Patients can expect to experience 5 to 10% weight loss - often we will co-rescribe this medication with phentermine in the preparation of Qsymia. In some patients, metformin is an option. Metformin is a diabetes medication that helps to lower insulin levels. Insulin affects appetite and metabolism and in patients who have high insulin levels or high sugars, metformin can often help with weight loss and improve overall metabolic health. Patients can expect to experience 5% weight loss with metformin depending on the dose-however, most common side effect of metformin is diarrhea. Finally we talked about the family of medications called GLP-1. Specifically, we talked about semaglutide and tirzepatide. These medications are once weekly injections that work on the stomach receptors that both decreased appetite and stimulate satiety. Most common side effect is nausea and vomiting and constipation and possibly diarrhea. These injections are done weekly and the side effect profile of the medication changes during the week. In the first few days after injection of the medications, appetite is dramatically decreased and over the course of the week slowly increasing so the amount of intake the patient's will desire will increase. Nausea and vomiting occur moreso after each dose. Each of these medications is titrated monthly after initiation so often there are varying amounts of side effects from [id number]-ww-[id number]. Patient can expect to lose between 15 and 25% of body weight with these medications. In general, when these medications are discontinued weight gain will recur unless the other 4 pillars of obesity medicine are supported. I reviewed the risks and benefits of each of the medications and the patient was given ample time to have all of their questions about the medications answered. PLAN: Patient is not a candidate for phentermine based on her comorbidities, has failed Topamax and Wellbutrin in the past and with her chronic GI issues is going a candidate for metformin Unfortunately, the gastric motility issues that are currently plagued her aunt are diagnosed make the GLP-1 medication contraindicated at this point-unfortunatel y, from a medication point of view there are not a a lot of options currently Patient acknowledged understanding was appreciative the time spent She does have an ongoing relationship with the bariatric surgeon who has talked about a potential revision to her sleeve. I spent a total of 30 minutes with the patient in [id number] consultation on the video +30 minutes both prior to and after the appointment reviewing medical records, reviewing her medication list, problems, previous outside testing, diagnostic test results for total 60 minutes of patient care delivered today. No specific follow-up appointment booked and patient was appreciative the time spent. ppettinato Not available 05/21/2024 16:18:47 Plan of Treatment Reminders Order Date Submit Date Provider Last Modified By Organization Details Last Modified Time Details Appointments None record ed. Lab None record ed. Referral None record ed. Procedures None record ed. Surgeries None record ed. Imaging None record ed. Medication Orders None record ed. Patient TargetsNo targets recorded. Patient InstructionsNo instructions recorded. Reason for Referral None Reported. Problems Name Problem SNOMED Code Status Onset Date Resolution Date Notes Provider Name and Address Organization Details Recorded Time Increased body mass index 09103089 Active 2023 Flori Mo null, [place] - [employer] 4 14:28:16 Cobalamin deficiency 039655509 Active 2023 Flori Mo [place] - [employer] 4 14:28:31 Anemia 014383568 Active 2023 Flori Mo [place] - [employer] 4 14:28:38 Attention deficit hyperactivity disorder, predominantly inattentive type 16428115 Active 2023 Flori Mo [place] - [employer] 4 14:28:58 Generalized anxiety disorder 69257547 Active 2023 Flori Mo null[place] - [employer] 4 14:29:08 Bipolar disorder 82192457 Active 2023 Flori Mo null[place] - [employer] 4 14:29:27 Gastroparesis syndrome 314924952 Active 2023 Jian Bello MD [address] [place] [address], [phone], [employer] 4 10:36:46 Body mass index 40+ - severely obese 574249951 Active 2023 Jian Bello MD [address] [place] [address], [phone], [place] [employer] 4 10:37:09 Problem Notes None recorded. 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 Procedure Notes None recorded. Medical Equipment None Reported. Allergies Allergen ID Allergen Name Allergen Category Reaction Reaction Severity Criticality Documentation Date Start Date Code Code System Note Provider Name and Address Organization Details Recorded Time 3858 adhesive tape environme nt,medica tion Not available Not available Not available 05/12/2024 70352 UNK Flori Mo tank [employer] 4 14:27:18 3859 amoxicill in medicatio n Not available Not available Not available 05/12/2024 723 RxNorm Flori Mo tank [employer] 4 14:27:26 3860 clindamyc in Not available Not available Not available Not available 05/12/2024 2582 RxNorm Flori Mo tank [employer] 4 14:27:32 3861 tapentado l medicatio n Not available Not available Not available 05/12/2024 01749 0 RxNorm Flori Mo tank [employer] 4 14:27:39 3862 venlafaxi ne medicatio n Not available Not available Not available 05/12/2024 01501 RxNorm Flori Mo tank, [employer] 4 14:27:48 Medications Name Sig Start Date Stop Date Status Note LastModified by Organization Details LastModified Time lamotrigine 200 mg tablet Take 1 tablet every day by oral route. active Not Available Not Available No t Available valacyclovir 500 mg tablet Take 1 tablet every day by oral route. active Not Available Not Available No t Available quetiapine 100 mg tablet Take 1 tablet every day by oral route. active Not Available Not Available No t Available famotidine 20 mg tablet Take 1 tablet twice a day by oral route. active Not Available Not Available No t Available colestipol 1 gram tablet Take 2 tablets every day by oral route. active Not Available Not Available No t Available dicyclomine 10 mg capsule Take 1 capsule 4 times a day by oral route. active Not Available Not Available No t Available Lunesta 1 mg tablet Take 1 tablet every day by oral route. active Not Available Not Available No t Available armodafinil 250 mg tablet Take 1 tablet every day by oral route. active Not Available Not Available No t Available Creon 1 PO TID active Not Available Not Avai lable Not Available Vraylar 1.5 mg capsule Take 1 capsule every day by oral route. active Not Available Not Available No t Available Vitals Date Recorded Body weight Body mass index (BMI) Body height Provider Name and Address Organization Details Last Updated DateTime 05/21/2024 18347.63 g 40.4 kg/m2 142.24 cm Jian Bello MD [address] [place] [address], [facility] [address], [address], [employer] 05/21/2024 15:49:17 Social History Question Answer Notes LastModified by Organization Details LastModified Time Tobacco Smoking Status Never Smoker Jian Bello MD [address] [place] [address], [facility] [address], [place], [address], [employer] 05/21/2024 15:55:21 How Much Alcohol Do You Drink? (beer/glasses Of Wine/shots Hard Liquor) None Information not available 05/21/2024 Do You Use Marijuana/THC? YES - Occasionally I Use Edibles Information not available 05/21/2024 How Many Cups Of Coffee/caffeina froy Beverages Do You Take In Daily? 1-2 Information not available 05/21/2024 Comfortable Capturing Current Weight Yes - At Each Appointment [email or web address] Information not available 05/21/2024 Weight Capture Preference Step On The Scale In Clinic [email or web address] Information not available 05/21/2024 Weight Goal Lose Weight Improve My General Health, Improve Other Chronic Conditions (e.g. Diabetes, High Blood Pressure), Prevent Chronic Health Conditions, Look/feel Better [id number] Information not available 05/21/2024 Treatment Interest: Weight Loss Medications Yes [email or web address] Information not available 05/21/2024 Treatment Interest: Nutritional Counseling Yes [email or web address] Information not available 05/21/2024 Treatment Interest: Health And Wellness Coaching No [email or web address] Information not available 05/21/2024 Treatment Interest: Physical Activity And Stress Management Strategies No [email or web address] Information not available 05/21/2024 Treatment Interest: Weight Loss Surgery Yes [email or web address] Information not available 05/21/2024 Age When Weight Struggle Began 22 [email or web address] Information not available 05/21/2024 Highest Weight As An Adult (lbs.) 234 [email or web address] Information not available 05/21/2024 Lowest Weight As An Adult (lbs.) 150 [email or web address] Information not available 05/21/2024 Desired Weight (lbs.) 130 [email or web address] Information not available 05/21/2024 Impact On Weight History: No [email or web address] Information not available 05/21/2024 Impact On Weight History: Menopause No [email or web address] Information not available 05/21/2024 Impact On Weight History: Smoking Cessation No [email or web address] Information not available 05/21/2024 Impact On Weight History: Genetics (family History Of Obesity) Yes [email or web address] Information not available 05/21/2024 Impact On Weight History: Aging No [email or web address] Information not available 05/21/2024 Impact On Weight History: Change In Activity Level Yes [email or web address] Information not available 05/21/2024 Impact On Weight History: Emotional Factors No [email or web address] Information not available 05/21/2024 Impact On Weight History: Meds Side Effects Yes [email or web address] Information not available 05/21/2024 Impact On Weight History: Other No [email or web address] Information not available 05/21/2024 Tried Losing Weight Previously Yes [email or web address] Information not available 05/21/2024 Prior Weight Loss Method: Commercial Programs Yes Weight Watchers [email or web address] Information not available 05/21/2024 Prior Weight Loss Method: Medications Yes Ozempic, Topiramate/To pamax, Wegovy [email or web address] Information not available 05/21/2024 Prior Weight Loss Method: Self-directed Diets No [email or web address] Information not available 05/21/2024 Prior Weight Loss Method: Exercise Program No [email or web address] Information not available 05/21/2024 Prior Weight Loss Method: Weight Loss Surgery Yes Sleeve Gastrectomy [email or web address] Information not available 05/21/2024 Prior Weight Loss Method: Therapy Yes [email or web address] Information not available 05/21/2024 Prior Weight Loss Method: Other No [email or web address] Information not available 05/21/2024 Eats When Feeling Negative Emotions Few Times Per Month [email or web address] Information not available 05/21/2024 Eats When Bored Few Times Per Month [email or web address] Information not available 05/21/2024 Quality Of Diet 3 [email or web address] Informati on not available 05/21/2024 Unable To Stop Eating N/a [email or web address] Information not available 05/21/2024 Wakes Up To Eat N/a [email or web address] Informati on not available 05/21/2024 Portion Size Smaller Than Most People [email or web address] Information not available 05/21/2024 Skips Meals Yes Breakfast [email or web address] Information not available 05/21/2024 Dietary Restrictions No [email or web address] Information not available 05/21/2024 Typical Activity Level Sedentary (sits Most Of The Day) [email or web address] Information not available 05/21/2024 Seen Therapist For Mental Health Treatment Yes - Receiving Therapy Now Bipolar/anxie ty/depression [email or web address] Information not available 05/21/2024 Attempted Weight Loss By Vomiting No [email or web address] Information not available 05/21/2024 Attempted Weight Loss By Overusing Laxatives No [email or web address] Information not available 05/21/2024 Attempted Weight Loss By Exercising Excessively No [email or web address] Information not available 05/21/2024 Attempted Weight Loss By Overusing Diet Pills No [email or web address] Information not available 05/21/2024 Attempted Weight Loss By Overusing Diuretics No [email or web address] Information not available 05/21/2024 Attempted Weight Loss By Not Taking Prescribed Insulin No [email or web address] Information not available 05/21/2024 Typical Sleep Duration 5-6 Hours [email or web address] Information not available 05/21/2024 Has Trouble Falling Asleep No [email or web address] Information not available 05/21/2024 Has Trouble Staying Asleep Yes [email or web address] Information not available 05/21/2024 Works Punch Press Feeder No [email or web address] Information not available 05/21/2024 History Of Medullary Thyroid Carcinoma (self Or Family) No [email or web address] Information not available 05/21/2024 History Of Glaucoma No [email or web address] Information not available 05/21/2024 History Of Kidney Stones Yes [email or web address] Information not available 05/21/2024 History Of Myocardial Infarction (heart Attack) No [email or web address] Information not available 05/21/2024 History Of Stroke No [email or web address] Information not available 05/21/2024 What Was The Date Of Your Most Recent Tobacco Screening? 05/21/2024 Information not available 05/21/2024 Sex: Unknown Functional Status None recorded. Mental Status None recorded. Family History Relationship Description Onset Age of this Age Resolved Age Notes LastModified by Organization Details LastModified Time Mother Obesity ppettinato Not availabl e 05/21/2024 15:54:10 Medical History No medical history recorded. Gynecological HistoryNo gynecological history recorded. Obstetrics History GPAL:G 0 P 0 0 0 0 Past Encounters Encounter ID Performer Location Encounter Start Date Encounter Closed Date Diagnosis/Indication Diagnosis SNOMED-CT Code Diagnosis ICD10 Code Diagnosis Note [id number] Jian Bello MD [address], [facility] [address] [place] [address] 05/21/2024 15:45:05 05/25/2024 16:24:03 Increased body mass index 71879717 E66.9 Bipolar disorder 2087427 4 F31.9 Attention deficit hyperactivity disorder, predominantly inattentive type 59229521 F90.0 Gastropare sis syndrome 184270222 K31.84 Body mass index 40+ - severely obese 348794021 Z68.41 Health Concerns Section Related Observation LastModified by Organization Detai ls LastModified Time None Recorded Concern Status LastModified by Organization Details LastModified Time None Recorded Advance Directives Directive None Recorded Payers Encounter Date Sequence Insurance Name Policy Number Policy Adames Covered Member ID Adames Member ID Guarantor Name 05/21/2024 1 [place] [id number] Osiel Charles [id number] Deyanira Charles Notes Date Note Type Note Provider Name and Address Organization Details Recorded Time 05/21/2024 text/html Patient I did a telehealth consultation to talk about her metabolic health She was referred to us by her bariatric surgeon Patient's status post gastric sleeve in 2019 He has gained weight over the past few years to some psych meds and does work diligently over the past few years to get off some of the psych meds but unfortunately she is probably 180 pounds at 448 No personal or family history of medullary thyroid cancer She was actually on Wegovy a few years ago really lost about 10 pounds Could not tolerate Topamax or phentermine in the past Has never taken metformin Has taken Wellbutrin in the past with poor results Has significant gastrointestinal motility issues with nausea, vomiting and dyspepsia-being followed by GI exacta being referred to functional GI provider Endoscopy and colonoscopy in on diagnostic, but per her report she did have an abnormal gastric motility emptying scan Jian Bello MD [address] [facility], [address], [place], [address], [facility] - [employer] [facility] 05/25/2024 10:37:29 OBGyn Episode No OBEpisode recorded.
--- OUTSIDE RECORDS SUMMARY | 2024-11-10 08:29 | XMS_ITS | Encounter Summary ---
Author Organization [facility] Address [address] [place] [address] Care Team Providers Care Commercial Carpet Installer Name Role Phone Radha Martel PA-C Primary Care Provi mckenna Vinod Robles MD Unavailable Encounter Details Date Type Department Care Team (Late st Contact Info) Description 05/04/2024 Scanned Document [facility] [address] [place] [phone] Radha Martel PA-C [address] [place] [address] Social History Tobacco Use Types Packs/Day Years Used Date Smoking Tobacco: Never Smokeless Tobacco: Never Alcohol Use Standard Drinks/Week Comments Yes 0 (1 standard drink = 0.6 oz pur e alcohol) rarely PHQ-2 Answer Date Recorded PHQ-2 Total Score 2 02/24/2024 Sex and Gender Information Value Date Recorded Sex Assigned at Female 02/23/2024 8:47 PM EDT Gender Identity Female 02/23/2024 8:47 PM EDT Sexual Orientation Heterosexual (straight) 02/22 8:47 PM EDT documented as of this encounter Plan of Treatment Upcoming Encounters Date Type Department Care Team (Late st Contact Info) Description 11/24/2024 11:00 AM EST Office Visit [address] [place] [phone] Radha Martel PA-C [address] [place], [place] [address] 11/25/2024 8:00 AM EST Office Visit [facility] [address] [place] [phone] Radha Martel PA-C [address] [place] [address] Radu Aleman MD [address] [place], [place] [address] 11/30/2024 8:[address] [facility] Department of Cardiology [place] [address] [place] [phone] Antonio Puente MD [address] [place] [address] 12/14/2024 8:30 AM EDT Office Visit [facility] Department of Cardiology [place] [address] [place] [phone] Antonio Puente MD [address] [place] [address] 02/10/2025 11:40 AM EDT Office Visit [facility] Department Of Hematology/Oncology [place] [address] [place] [address] Jhoana Wilkins MD [address] [place], [place] [address] documented as of this encounter Visit Diagnoses Not on filedocumented in this encounter Care Teams Commercial Carpet Installer Relationship Specialty Start Date End Date Radha Martel PA-C [address] [place] [address] PCP - General Internal Medicine 5/20/24 Vinod Robles MD [address] [place] [address] Primary Die Maker Electronic Cardiovascular Disease 09/02/24 documented as of this encounter
--- OUTSIDE RECORDS SUMMARY | 2024-11-10 08:29 | XMS_ITS | Encounter Summary ---
Author Organization [facility] Address [address] [place] [address] Care Team Providers Care Event Specialist Product Demonstrator Name Role Phone Radha Martel PA-C Primary Care Provi mckenna Vinod Robles MD Unavailable [phone] Encounter Details Date Type Department Care Team (Late st Contact Info) Description 05/04/[address] [phone] Radha Martel PA-C [address] [place] [address] Social History Tobacco Use Types Packs/Day Years [...] PM EDT documented as of this encounter Miscellaneous Notes * Telephone Encounter - Tati Aquino MA - 05/04/2024 2:17 PM EDT Advised of your message. She stated genetic testing has a long wait list. She stated shewill wit until she hears back from our office before doing anything with referral. * Telephone Encounter - Tati Aquino MA - 05/04/2024 12:44 PM EDT from [facility] stated they got a referral on pt and would like to discuss more with radha. She stated the referral is not specific and they reached out to the patient but she was not helpful in figuring out why she needs to be seen. She is asking for radha to call her so she can get a better idea on why she was referred. documented in this encounter Plan of Treatment Upcoming Encounters Date Type Department Care Team (Late st Contact Info) Description 11/24/2024 11:00 AM EST Office Visit [facility] [address] [facility] [address] [place] [address] Radha Martel PA-C [address] [place] [address] 11/25/2024 8:00 AM EST Office Visit [facility] [address] [place] [phone] Radha Martel PA-C [address] [place] [address] Radu Aleman MD [address] [facility] [address] [place] [address] 11/30/2024 8:45 AM EST Appointment [facility] Department of Cardiology [place] [address] [facility] [address] [place] [phone] Antonio Puente MD [address] [facility] [address] [place] [address] 12/14/2024 8:30 AM EDT Office Visit [facility] Department of Cardiology [place] [address] [place] [address] Antonio Puente MD [address] [place] [address] 02/10/2025 11:40 AM EDT Office Visit [facility] Department Of Hematology/Oncology [place] [address] [place] [phone] Jhoana Wilkins MD [address] [place], [place] [address] documented as of this encounter Visit Diagnoses Not on filedocumented in this encounter Care Teams Event Specialist Product Demonstrator Relationship Specialty Start Date End Date Radha Martel PA-C [address] [place] [address] PCP - General Internal Medicine 02/24/24 Vinod Robles MD [address] [place] [address] Primary Agriculture Instructor Cardiovascular Disease 09/02/24 documented as of this encounter
--- OUTSIDE RECORDS SUMMARY | 2024-11-10 08:29 | XMS_ITS | Clinical Summary ---
Author Organization [facility] Address [address] [place] [address] Care Team Providers Care Soccer Commentator Name Role Phone Radha Martel PA-C Primary Care Provi mckenna Vinod Robles MD Unavailable [phone] Allergies Active Allergy Reactions Criticality Noted Date Comments Adhesives/Tape Rash/Dermatitis Medium 04/15/2021 Amoxicillin Rash/Dermatitis Low 02/19/2024 Clindamycin Anaphylaxis High 04/15/2021 Tapentadol Rash/Dermatitis High 08/04/2014 Venlafaxine Other (See Comments),Unknown/Patient and Family Unable to Define Medium 06/01/2020 Suicidal ideation Suicidal ideation Suicidal ideation Other Reaction(s): Other (See Comments) Suicidal ideation Medications Medication Sig Dispensed Refills Start Date End Date Status QUEtiapine (SEROquel) 100 MG tablet Take 1 tablet (100 mg total) by mouth nightly. Active Armodafinil (NUVIGIL) 250 MG tablet Take 1 tablet (250 mg total) by mouth daily. 02/08/2024 Active cariprazine (Vraylar) 1.5 MG caspule Take 1 tablet by mouth daily. 02/28/2023 Active eszopiclone (LUNESTA) 1 MG tablet Take 1 tablet (1 mg total) by mouth nightly. 01/27/2024 Active famotidine (PEPCID) 20 MG tablet Take 1 tablet (20 mg total) by mouth 2 (two) times a day. 60 tablet 5 02/19/2024 Active lamoTRIgine (LaMICtal) 200 MG tablet Take 1 tablet (200 mg total) by mouth daily. 11/28/2023 Active melatonin 5 MG Tab tablet Take 1 tablet (5 mg total) by mouth nightly. 11/30/2023 Active valACYclovir (VALTREX) 500 MG tablet Take 1 tablet (500 mg total) by mouth daily. 04/15/2023 Active fluticasone (FloNASE) 50 mcg/spray nasal sprayIndications:Rec urrent sinus infections,Non-seaso nal allergic rhinitis due to other allergic trigger 2 sprays per nostril daily 3 each 3 03/05/2024 Active colestipol (COLESTID) 1 g tablet TAKE 2 TABLETS (2 G TOTAL) BY MOUTH DAILY. 03/13/2024 Active azithromycin (ZITHROMAX) 500 MG tabletIndications:An ti-pneumococcal polysaccharide antibody deficiency 1 tablet every Saturday, Saturday and Saturday 39 tablet 3 05/28/2024 05/28/2025 Active hyoscyamine (ANASPAZ) 0.125 MG Tablet Dispersible dispersible tablet DISSOLVE 2 TABLETS IN MOUTH EVERY 6 HOURS NEEDED FOR ABDOMINAL PAIN Active pregabalin (LYRICA) 75 MG capsuleIndications:F ibromyalgia Take 1 capsule (75 mg total) by mouth 2 (two) times a day. 60 capsule 1 09/07/2024 Active albuterol (PROVENTIL HFA; VENTOLIN HFA) 108 (90 Base) MCG/ACT inhaler Inhale 2 puffs 4 times daily (every 6 hours) as needed for wheezing. Active Mometasone Furoate Powder Compound mometasone 1mg capsule in sinus rinse twice daily 07/21/2024 Active proCHLORPERAZINE (COMPAZINE) 10 MG tablet TAKE 1 TABLET ORALLY EVERY 8 HOURS NEEDED FOR NAUSEA AND VOMITING FOR 30 DAYS Active Xifaxan 550 MG tablet TAKE 1 TABLET BY MOUTH 3 TIMES A DAY FOR 14 DAYS. 08/24/2024 Active Ubrelvy 100 MG tablet TAKE 1/2 TO 1 TABLET BY MOUTH NEEDED FOR MIGRAINE. MAY REPEAT IN 2 HOURS. MAY TAKE WITH IBUPROFEN Active Active Problems Problem Noted Date Diagnosed Date Heart palpitations 10/30/2024 Assessment & Plan (10/30/2024 4:45 PM EST): We will do an echocardiogram to define substrate rule out valvulopathy. We will do a event monitor as patient has had syncope. We want to rule out malignant ventricular dysrhythmia. Syncope and collapse 10/30/2024 Assessment & Plan (10/30/2024 4:45 PM EST): Patient went down her waiting room. Patient was sent to go urgent care to be evaluated. She has right ankle pain. We do an echocardiogram to define substrate rule out valvulopathy and determine risk of malignant ventricular arrhythmia. S/P repair of PDA 04/28/2024 Assessment & Plan (10/30/2024 4:43 PM EST): We are going to do an echocardiogram to define substrate rule out valvulopathy. B12 deficiency 03/10/2024 Anemia 03/05/2024 Morbid obesity 02/24/2024 Assessment & Plan (10/30/2024 4:43 PM EST): Weight loss is indicated. Endometriosis 02/24/2024 Daytime sleepiness 02/24/2024 History of tobacco use 02/24/2024 S/P gastric sleeve procedure 02/24/2024 Elevated sed rate 02/24/2024 Bilateral hearing loss 02/24/2024 Other insomnia 02/24/2024 Attention deficit disorder 04/15/202302/23 Bipolar 2 disorder, major depressive episode 07/202302/24/2024 Chronic pelvic pain in female 03/08/2023 Recurrent sinus infections 01/19/202002/23 Fibromyalgia 12/01/2019 02/24/2024 Generalized anxiety disorder 09/02/2019 ASCUS with positive high risk HPV cervical 01/0702/24/2024 Overview (02/24/2024): ASCUS HR HPV 05/2015 ASCUS HR HPV 05/2015 ASCUS HR HPV 05/2015 Herpes simplex of female genitalia 08/05/2015 02/24/2024 Fe deficiency anemia 08/04/2014 02/24/2024 Fatty liver disease, nonalcoholic 07/07/2014 02/24/2024 Focal nodular hyperplasia of liver 07/07/2014 02/24/2024 Migraines 08/07/2013 02/24/2024 Asthma 03/06/2012 02/24/2024 Perennial allergic rhinitis 03/06/201202/05 Resolved Problems Problem Noted Date Diagnosed Date Resolved Date Fatigue 03/23/2024 05/18/2024 S/P gastric bypass 02/24/2024 Hypogammaglobulinemia 02/24/20242023 Cholecystitis 04/02/2023 02/24/2024 02/24/2024 Nondependent opioid abuse in remission 03/08/202302/24/2024 Overview (02/24/2024): sober x 7 years sober x 7 years sober x 7 years Encounters Date Type Department Care Team Description 10/30/2024 Orders Only [facility] Department Of Hematology/Oncology [address] [place] [phone] Jhoana Wilkins MD B12 deficiency (Primary Dx); Fe deficiency anemia; Anemia 10/29/2024 11:45 AM EST Hospital Encounter [facility] [address] [place] [address] 10/29/2024 10:10 AM EST Office Visit [facility] [place] [address] [place] [address] Jon Pleitez MD Nguyen, Nam V, PA Right foot injury, initial encounter (Primary Dx) 10/29/2024 8:45 AM EST Office Visit [facility] Department of Cardiology [place] [address] [place] [address] Antonio Puente MD Heart palpitations (Primary Dx); S/P repair of PDA; Dizziness and giddiness; Morbid obesity (HCC); Syncope and collapse 10/29/2024 Travel 10/29/2024 Scanned Document [facility] [address] [facility] [address] [place] [phone] Provider, Generic 10/29/2024 Scanned Document [facility] [address] [facility] [address] [place] [phone] Provider, Generic 09/15/2024 Travel 09/15/2024 Scanned Document [address] [phone] Otolaryngology, Scan 09/07/2024 9:20 AM EST Consult [facility] [place] [address] [phone] Radha Martel PA-C Nasir, Usama Bin, MD Heart palpitations (Primary Dx); Dizzy 09/07/2024 Travel 09/07/2024 Orders Only [address] [phone] Radha Martel PA-C Fibromyalgia (Primary Dx) 08/19/2024 12:30 PM EST Office Visit [address] [phone] Radha Martel PA-C Fibromyalgia (Primary Dx) 08/19/2024 Travel 08/19/2024 Scanned Document [address] [phone] Radha Martel PA-C 08/18/2024 11:20 AM EST Office Visit [facility] Department Of Hematology/Oncology [place] [address] [address] [place] [phone] Jhoana Wilkins MD Anemia (Primary Dx); B12 deficiency; Fe deficiency anemia; Fibromyalgia; Generalized anxiety disorder; S/P gastric sleeve procedure; Fatty liver disease, nonalcoholic from Last 3 Months Immunizations Name Administration Dates Next Due Influenza Inactivated/Split Preservative Free IM 08/06/2019,07/14/2012 PPD Test 06/02/2020 Pneumococcal Polysaccharide 23-Valent 06/02/2020 Tdap 03/22/2023,07/14/2012,09/19/2011 Family History Relation Name Status Comments Father Other Mother Alive Social History Tobacco Use Types Packs/Day Years Used Date Smoking Tobacco: Never Smokeless Tobacco: Never Tobacco Cessation:Counseling Given: Not Answered Alcohol Use Standard Drinks/Week Comments Yes 0 (1 standard drink = 0.6 oz pur e alcohol) rarely PHQ-2 Answer Date Recorded PHQ-2 Total Score 2 05/18/2024 Physical Activity Answer Date Recorded On average, how many days pe r week do you engage in moderate to strenuous exercise (like a brisk walk)? 0 days 05/18/2024 On average, how many minutes do you exercise per day at this level? 0 min 05/18/2024 Sex and Gender Information Value Date Recorded Sex Assigned at Female 02/23/2024 8:47 PM EDT Gender Identity Female 02/23/2024 8:47 PM EDT Sexual Orientation Heterosexual (straight) 02/22 8:47 PM EDT Last Filed Vital Signs Vital Sign Reading Time Taken Comments Blood Pressure 112/74 10/29/2024 10:20 AM EST Pulse 72 10/29/2024 10:20 AM EST Temperature 36.8 ??C (98.3 ??F) 10/29/2024 10:[address] Respiratory Rate 17 08/19/2024 12:26 PM EST Oxygen Saturation 99% 10/29/2024 10:20 AM EST Inhaled Oxygen Concentration - - Weight 83.5 kg (184 lb) 10/29/2024 10:20 AM EST Height 142.2 cm (4' 8 ) 10/29/2024 10:20 AM EST Body Mass Index 41.25 10/29/2024 10:20 AM EST Plan of Treatment Upcoming Encounters Date Type Department Care Team (Late st Contact Info) Description 11/24/2024 11:00 AM EST Office Visit [facility] [address] [facility] [address] [place] [phone] Radha Martel PA-C [address] [place] [address] 11/25/2024 8:00 AM EST Office Visit [address] [place] [phone] Radha Martel PA-C [address] [place] [address] Radu Aleman MD [address] [facility] [address] [place], [place] [phone] 11/30/2024 8:45 AM EST Appointment [facility] Department of Cardiology [place] [address] [place] [phone] Antonio Puente MD [address] [place] [address] 12/14/2024 8:30 AM EDT Office Visit [facility] Department of Cardiology [place] [address] [place] [phone] Antonio Puente MD [address] [place] [address] 02/10/2025 11:40 AM EDT Office Visit [facility] Department Of Hematology/Oncology [place] [address] [place] [phone] Jhoana Wilkins MD [address] [facility] [address] [place], [place] [phone] Health Maintenance Due Date Last Done Comments Pap Smear (Ages 21-65) 01/10/2013 Pneumococcal Vaccine: Pediatric (0-5 Years) and At-Risk Patients (6 to 49 Years) (2 of 2 - PCV) 06/02/2021 06/02/2020 Influenza Vaccine 05/07/2024 08/06/2019, , 08/06/2019, Additional history exists COVID-19 Vaccine (1 - 2023- season) 2024 Physical 05/18/2027 05/18/2024 DTaP/Tdap/Td Vaccines (4 - Td or Tdap) 03/22/2033 03/22/2023, 07/14/2012, 09/19/2011 HIV Screening Completed 02/15/2021 Chronic Controlled Substance User PDMP Review Discontinued 07/16/2024 HPV Vaccines Aged Out No longer eligi ble based on patient's age to complete this topic Hepatitis B Vaccines Discontinued Hepatitis C Virus Screening Discontinued Procedures Procedure Name Priority Date/Time Associated Diagnosis Comments VITAMIN B12 AND FOLATE Routine 11/02/2024 10:45 AM EST B12 deficiency Fe deficiency anemia Anemia IRON AND TOTAL IRON BINDING CAPACITY Routine 11/02/2024 10:45 AM EST B12 deficiency Fe deficiency anemia Anemia FERRITIN Routine 11/02/2024 10:45 AM EST B12 deficiency Fe deficiency anemia Anemia COMPLETE BLOOD COUNT, WITH DIFFERENTIAL Routine 11/02/2024 10:45 AM EST B12 deficiency Fe deficiency anemia Anemia XR FOOT 3+ VIEWS-RIGHT STAT 10/29/2024 11:30 AM EST Right foot injury, initial encounter ECG 12-LEAD Routine 10/29/2024 8:51 AM EST Heart palpitations S/P repair of PDA Dizziness and giddiness ECG 12-LEAD Routine 09/07/2024 9:16 AM EST Heart palpitations Dizzy ANTI-PARIETAL ANTIBODY Routine 08/18/2024 11:47 AM EST IRON AND TOTAL IRON BINDING CAPACITY Routine 08/18/2024 11:47 AM EST Anemia FERRITIN Routine 08/18/2024 11:47 AM EST Anemia INTRINSIC FACTOR BLOCKING ANTIBODY Routine 08/18/2024 11:47 AM EST Anemia VITAMIN B12 AND FOLATE Routine 08/18/2024 11:47 AM EST Anemia COMPLETE BLOOD COUNT, WITH DIFFERENTIAL Routine 08/18/2024 11:47 AM EST Anemia from Last 3 Months Results * Iron and Total Iron Binding Capacity (11/02/2024 10:45 AM EST) Only the most recent of2 resultswithin the time period is included. Iron 48 45 - 160 ug/dL [facility] UIBC 263 110 - 370 ug/dL [facility] Total Iron Binding Capacity 311 228 - 428 ug/dL [facility] Iron Sat 15 11 - 50 % [facility] Blood Blood specimen / Unknown 11/02/2024 10:45 AM EST 11/02/2024 4:23 PM EST Jhoana Wilkins MD LAB BLOOD ORDERABLES Performing Organization Address City/[facility]/ZIP Co de Phone Number [facility] [address] [place] [address] * VITAMIN B12 AND FOLATE (11/02/2024 10:45 AM EST) Only the most recent of2 resultswithin the time period is included. Vitamin B12 445 211 - 946 pg/mL [facility] Folate, Serum 4.7 3.1 - 17.5 ng/mL [facility] Blood Blood specimen / Unknown 11/02/2024 10:45 AM EST 11/02/2024 4:23 PM EST Jhoana Wilkins MD LAB BLOOD ORDERABLES Performing Organization Address City/[facility]/ZIP Co de Phone Number [facility] [address] [place] [address], [place] * (ABNORMAL) Complete Blood Count, with Differential (11/02/2024 10:45 AM EST) Only the most recent of2 resultswithin the time period is included. WBC 11.76(H) 4.00 - 11.00 Thousand/ uL [facility] RBC 4.27 4.04 - 5.48 Million/u L [facility] Hemoglobin 13.4 12.0 - 14.1 g/dL [facility] Hematocrit 41.5 33.5 - 43.3 % [facility] MCV 97.2(H) 80.0 - 97.0 fL [facility] MCH 31.4(H) 27.0 - 31.2 pg [facility] MCHC 32.3 31.8 - 35.4 g/dL [facility] RDW-CV 13.5 11.6 - 14.8 % [facility] Platelet Count 289.0 142.0 - 424.0 Thousand/ uL [facility] MPV 11.2 8.0 - 13.0 fL [facility] Neutrophil % 66.7 37.0 - 80.0 % [facility] Lymph % 26.6 10.0 - 50.0 % [facility] Monocytes % 5.4 1.0 - 11.9 % [facility] Eosinophils, % 0.6 0.0 - 6.9 % [facility] Basophils, % 0.4 0.0 - 2.4 % [facility] Absolute Neutrophil Count 7.8(H) 2.0 - 6.9 Thousand/ uL [facility] Absolute Lymphocytes 3.1 0.6 - 3.4 Thousand/ uL [facility] Absolute Monocytes 0.6 0.1 - 0.8 Thousand/ uL [facility] Absolute Eosinophils 0.1 0.0 - 0.6 Thousand/ uL [facility] Absolute Basophils 0.1 0.0 - 0.1 Thousand/ uL [facility] Immature Granulocytes 0.300 0.001 - 0.900 % [facility] Abs Immature Granulocytes 0.0400 0.0000 - 0.0700 Thousand/ uL [facility] Nucleated RBCS (%) 0.0 0.0 - 0.2 % [facility] NRBC, Absolute 0.000 0.000 - 0.012 Thousand/ uL [facility] Blood Blood specimen / Unknown 11/02/2024 10:45 AM EST 11/02/2024 4:23 PM EST Jhoana Wilkins MD LAB BLOOD ORDERABLES Performing Organization Address City/[facility]/ZIP Co de Phone Number [facility] [address] * (ABNORMAL) FERRITIN (11/02/2024 10:45 AM EST) Only the most recent of2 resultswithin the time period is included. Ferritin 224(H) 15 - 150 ng/mL [facility] Blood Blood specimen / Unknown 11/02/2024 10:45 AM EST 11/02/2024 4:23 PM EST Jhoana Wilkins MD LAB BLOOD ORDERABLES Performing Organization Address [facility] Co de Phone Number [address] * XR Foot 3+ views-Right (10/29/2024 11:30 AM EST) Anatomical Region Laterality Modality Foot Right Computed Radiogr aphy 10/29/2024 11:3 0 AM EST 10/29/2024 11:30 AM EST Impressions 10/29/2024 12:28 PM EST Normal right foot. Electronically signed by: ??Jassi Boone MD ??10/29/2024 12:28 PM EST Thank you for referring your patient to us, Jassi Boone MD [phone] (Electronically Signed - 10/29/2024 12:28) Copy: PATIENT , ?? Narrative 10/29/2024 12:28 PM EST EXAMINATION: XR FOOT, RIGHT CLINICAL INFORMATION: Unspecified injury of right foot, initial encounter; right dorsal navicular midfoot pain s/p ground level fall COMPARISON: None available. ?? TECHNIQUE: AP, lateral, and oblique views of the right foot. FINDINGS: The bones and soft tissues are normal. No fracture. Alignment is anatomic. Joint spaces are maintained. ?? Procedure Note Jassi Boone MD - 10/29/2024 EXAMINATION: XR FOOT, RIGHT CLINICAL INFORMATION: Unspecified injury of right foot, initial encounter; right dorsalnavicular midfoot pain s/p ground level fall COMPARISON: None available. TECHNIQUE: AP, lateral, and oblique views of the right foot. FINDINGS: The bones and soft tissues are normal. No fracture. Alignment is anatomic.Joint spaces are maintained. IMPRESSION: Normal right foot. Electronically signed by: Jassi Boone MD 10/29/2024 12:28 PM EST RPWorkstation: [id number] Thank you for referring your patient to us, Jassi Boone MD [phone] (Electronically Signed - 10/29/2024 12:28) Copy: PATIENT , JANAK Longoria IMG DIAGNOSTIC IMAGI NG ORDERABLES * ECG 12 lead (10/29/2024 8:51 AM EST) Only the most recent of2 resultswithin the time period is included. 10/29/2024 8:51 AM EST Antonio Puente MD ECG ORDERABLES * INTRINSIC FACTOR BLOCKING ANTIBODY (08/18/2024 11:47 AM EST) Intrinsic Factor Abs 1.1 0.0 - 1.1 AU/mL [facility] 1 Blood Blood specimen / Unknown 08/18/2024 11:47 AM EST 08/18/2024 Comment:Blood Narrative [facility] ([place]) - 08/20/2024 6:10 AM EST Performed at: ??01 - [facility] [address] ??[id number] Casting Wheel Operator Helper: Avelino Escobar MD, Phone: ??[phone] Jhoana Wilkins MD LAB BLOOD ORDERABLES [facility] ADAM) [facility] 1 * Anti-parietal antibody (08/18/2024 11:47 AM EST) Parietal Cell Ab 1.0 0.0 - 20.0 Units [facility] 1 Comment: ?Negative ?0.0 - 20.0 ?Equivocal ??20.1 - 24.9 ?Positive ? >24.9 Parietal Cell Antibodies are found in 90% of patients with pernicious anemia and 30% of first degree relatives with pernicious anemia. 08/18/2024 11:4 7 AM EST 08/18/2024 Comment:Blood Narrative [facility] ([place]) - 08/19/2024 4:08 PM EST Performed at: ??01 - [facility] [address] ??[id number] Casting Wheel Operator Helper: Roxi Salazar MD, Phone: ??[phone] Jhoana Wilkins MD LAB BLOOD ORDERABLES [facility] ([place]) [facility] 1 from Last 3 Months Care Teams Soccer Commentator Relationship Specialty Start Date End Date Radha Martel PA-C [address] [place] [address] PCP - General Internal Medicine 02/24/24 Vinod Robles MD [address] [place] [address] Primary Dye Stand Loader Cardiovascular Disease 09/02/24
--- OUTSIDE RECORDS SUMMARY | 2024-11-10 08:30 | XMS_ITS | Encounter Summary ---
Author Organization [facility] Address [address] [place] [address] Care Team Providers Care Cocoa Bean Roaster Name Role Phone Radha Martel Primary Care Provider [phone] Encounter Details Date Type Department Care Team (Late st Contact Info) Description 11/03/2020 myChart Message [facility] [address] [place], [place] [phone] Kalie Clark MD [address] [place], [place] [phone] Non-Urgent Medical Question Social History Tobacco Use Types Packs/Day Years Used Date Smoking Tobacco: Never Smokeless Tobacco: Never Alcohol Use Standard Drinks/Week Comments Not Currently 0 (1 standard drink = 0.6 oz pur e alcohol) Comments Unknown Sex and Gender Information Value Date Recorded Sex Assigned at Female 05/19/2024 8:39 AM EDT Legal Sex Female 12:34 PM EDT Gender Identity Not on file Sexual Orientation Not on file documented as of this encounter Plan of Treatment Not on file documented as of this encounter Visit Diagnoses Not on filedocumented in this encounter Care Teams Cocoa Bean Roaster Relationship Specialty Start Date End Date Radha Martel [address] [place] [phone] PCP - General Internal Medicine 03/30/24 documented as of this encounter
--- OUTSIDE RECORDS SUMMARY | 2024-11-10 08:30 | XMS_ITS | Encounter Summary ---
Author Organization [facility] Address [address] [place] [address] Care Team Providers Care Associate Buyer Name Role Phone Radha Martel Primary Care Provider [phone] Encounter Details Date Type Department Care Team (Late st Contact Info) Description 12/02/2020 Orders Only [facility] [address] [place] [phone] Kalie Clark MD [address] [place] [phone] Social History Tobacco Use Types Packs/Day Years [...] on file documented as of this encounter Procedures * Due to [place] Sofea law, this organization might not be sharing negative HIV tests. Procedure Name Priority Date/Time Associated Diagnosis Comments NEURODIAGNOSTIC - SCANNED Routine 04/06/2020 documented in this encounter Results * Due to [place] law, this organization might not be sharing negative HIV tests. * NEURODIAGNOSTIC - SCANNED (04/06/2020) Kalie Clark MD SCANNED PROCEDURES Final Res ult documented in this encounter Visit Diagnoses Not on filedocumented in this encounter Care Teams Associate Buyer Relationship Specialty Start Date End Date Radha Martel [address] [place] [address] PCP - General Internal Medicine 03/30/24 documented as of this encounter
--- OUTSIDE RECORDS SUMMARY | 2024-11-10 08:30 | XMS_ITS ---
Author Name [facility] Organization Unknown History of Medication Use Medication Directions Dispensed Refills Start Date End Date Status Mometasone Furoate Powder Compound mometasone 1mg capsule in sinus rinse twice daily 4 active cyanocobalamin (VITAMIN B-12) injection 1,000 mcg 1,000 mcg, Subcutaneous, Once, On Sat03/31/24 at 1330, For 1 dose, Weekly x 4 doses. 4 03/31/20 completed famotidine (PEPCID) 20 MG tablet Take 1 tablet (20 mg total) by mouth 2 (two) times a day. 4 08/18/20 24 active cholecalciferol (CHOLECALCIFEROL) 1.25 MG (79735 UT) capsule Take 1 capsule (50,000 Units total) by mouth once a week. 4 active proCHLORPERAZINE (COMPAZINE) 10 MG tablet TAKE 1 TABLET ORALLY EVERY 8 HOURS NEEDED FOR NAUSEA AND VOMITING FOR 30 DAYS active dicyclomine (BENTYL) 10 MG capsule Take 1 capsule (10 mg total) by mouth 4 (four) times a day as needed. 4 active valacyclovir active diphenhydrAMINE (BENADRYL) 25 mg in sodium chloride (NS) 0.9 % 50 mL IVPB 25 mg, Intravenous, Administer over 15 Minutes, Once, On Sat03/10/24 at 1800, For 1 dose 4 03/10/20 completed hyoscyamine (ANASPAZ) 0.125 MG Tablet Dispersible dispersible tablet DISSOLVE 2 TABLETS IN MOUTH EVERY 6 HOURS NEEDED FOR ABDOMINAL PAIN active erenumab-aooe (Aimovig) 140 MG/ML Solution Auto-injector injection Inject 1 pen(s) (140 mg total) under the skin. 3 active pancrelipase (CREON) [address] Particles Take 1 capsule (24,000 Units total) by mouth 3 (three) times a day with meals. Dose is in units of lipase. active etonogestrel (NEXPLANON) 68 MG IMPL subcutaneous implant Inject 68 mg under the skin. 5 active valACYclovir (VALTREX) 500 MG tablet Take 1 tablet (500 mg total) by mouth daily. 3 active Vraylar active Aimovig SOAJ INJECT 140 MG SUBCUTANEOUSLY ONCE FOR 30 DAYS 3 active azithromycin (ZITHROMAX) 500 MG tablet 1 tablet every Saturday, Saturday and Saturday 4 active Xifaxan 550 MG tablet TAKE 1 TABLET BY MOUTH 3 TIMES A DAY FOR 14 DAYS. 4 active colestipol (COLESTID) 1 g tablet TAKE 2 TABLETS (2 G TOTAL) BY MOUTH DAILY. 4 active cyanocobalamin (VITAMIN B-12) injection 1,000 mcg 1,000 mcg, Subcutaneous, Once, On Sat03/23/24 at 0930, For 1 dose, Weekly x 4 doses. 4 03/23/20 24 completed cephalexin (KEFLEX) 500 MG capsule Take 1 capsule (500 mg total) by mouth 2 (two) times a day. 4 06/15/20 24 active armodafinil active colestipol (COLESTID) 1 g tablet Take 2 tablets (2 g total) by mouth. 4 08/18/20 24 active gabapentin (NEURONTIN) 100 MG capsule Take 1-2 tablets po at bedtime 4 active QUEtiapine (SEROquel) 50 MG tablet Take 2 tablets (100 mg total) by mouth every night at bedtime. 2 active Problems Problem Status Onset Date Problem Type Date of Resolution Source Migraines active 2013-08-07 [facility] Fe deficiency anemia active 2014-08-04 ProblemAct [facility] Recurrent sinus infections active 2020-01-19 ProblemAct [facility] Endometriosis active 2024-02-24 ProblemAct [facility] T Generalized anxiety disorder active 2019-09-02 ProblemAct [facility] Attention deficit disorder active 2023-04-15 ProblemAct [facility] History of tobacco use active 2024-02-24 ProblemAct [facility] B12 deficiency active 2024-03-[address] Heart palpitations active 2024-10-30 ProblemAct [facility] Morbid obesity active 2024-02-[address] Elevated sed rate active 2024-02-24 ProblemAct [facility] Perennial allergic rhinitis active 2012-03-06 ProblemAct [facility] Anemia active 2024-03-05 ProblemAct [facility] S/P gastric sleeve procedure active 2024-02-24 ProblemAct [facility] S/P repair of PDA active 2024-04-28 ProblemAct [facility] Focal nodular hyperplasia of liver active 2014-07-07 ProblemAct [facility] Fatty liver disease, nonalcoholic active 2014-07-07 ProblemAct [facility] Dizziness and giddiness active EncounterDiagnosisAct [facility] Fibromyalgia active 2019-12-01 ProblemAct [facility] Asthma active 2012-03-06 ProblemAct [facility] ASCUS with positive high risk HPV cervical active 2017-01-07 ProblemAct [facility] Bipolar 2 disorder, major depressive episode active 2023-04-15 ProblemAct [facility] Herpes simplex of female genitalia active 2015-08-05 ProblemAct [facility] Syncope and collapse active 2024-10-30 ProblemAct [facility] Bilateral hearing loss active 2024-02-24 ProblemAct [facility] Attention deficit hyperactivity disorder (ADHD), other type active EncounterDiagnosisAct [facility] MG Class 2 severe obesity due to excess calories with serious comorbidity and body mass index (BMI) of 37.0 to 37.9 in adult active 2023-04-19 ProblemAct [facility] Depression active 2011-10-23 ProblemAct [facility] G Nondependent opioid abuse in remission active 2023-03-08 ProblemAct [facility] Keratoconus active 2022-08-28 ProblemAct [facility] MG Other insomnia active 2024-02-[address] Chronic pelvic pain in female active 2023-03-08 ProblemAct [facility] Daytime sleepiness active 2024-02-24 ProblemAct [facility] Cholecystitis active 2023-04-02 ProblemAct [facility] Consultation for female sterilization active 2023-04-15 ProblemAct [facility] Encounter for removal and reinsertion of Nexplanon active 2023-04-19 ProblemAct [facility] History of PCR DNA positive for HSV2 active 2023-04-15 ProblemAct [facility] Subluxation of shoulder joint active 2023-04-17 ProblemAct [facility] Endometriosis active 2020-06-02 ProblemAct [facility] Status post bariatric surgery active 2020-05-19 ProblemAct [facility] Immunizations Vaccine Date Source Lot Number Status Tdap 03/22/2023 [facility] [id number] completed Tdap 07/14/2012 [facility] [id number] completed Pneumococcal Polysaccharide 23-Valent 06/02/2020 [facility] [id number] completed Influenza Inactivated/Split Preservative Free IM 07/14/2012 [facility] [id number] completed Tdap 09/19/2011 [facility] [id number] completed PPD Test 06/02/2020 [facility] [id number] completed Influenza Inactivated/Split Preservative Free IM 08/06/2019 [facility] [id number] completed
--- OUTSIDE RECORDS SUMMARY | 2024-11-10 08:30 | XMS_ITS | Encounter Summary ---
Author Organization [facility] Address [address] [id number] Care Team Providers Care Table Setter Name Role Phone Radha Martel Primary Care Provider [phone] Encounter Details Date Type Department Care Team (Late st Contact Info) Description 12/02/2020 myChart Message [facility] [address] [place] [address] [phone] Kalie Clark MD [address] [place] [address] [phone] RE: Non-Urgent Medical Question Social History Tobacco Use [...] on filedocumented in this encounter Care Teams Table Setter Relationship Specialty Start Date End Date Radha Martel [address] [place] [address] PCP - General Internal Medicine 03/30/24 documented as of this encounter
--- OUTSIDE RECORDS SUMMARY | 2024-11-10 08:30 | XMS_ITS | Encounter Summary ---
Author Organization [facility] Address [address] [place] [address] Care Team Providers Care Nurse Clinical Name Role Phone Radha Martel PA-C Primary Care Provi mckenna Vinod Robles MD Unavailable Encounter Details Date Type Department Care Team (Late st Contact Info) Description 03/06/2024 Scanned Document [facility] Physicians Department Of Hematology/Oncology [place] [address] [place] [phone] Jhoana Wilkins MD [address] [facility] [address] [place], [place] [address] Social History Tobacco Use Types Packs/Day Years [...] Description 11/24/2024 11:00 AM EST Office Visit [address] [place] [phone] Radha Martel PA-C [address] [place] [address] 11/25/2024 8:00 AM EST Office Visit [facility] Dermatology [address] [place] [phone] Radha Martel PA-C [address] [place] [address] Radu Aleman MD [address] [place], [place] [address] 11/30/2024 8:45 AM EST Appointment [facility] Department of Cardiology [place] [address] [place] [phone] Antonio Puente MD [address] [place] [address] 12/14/2024 8:30 AM EDT Office Visit [facility] Department of Cardiology [place] [address] [place] [address] Antonio Puente MD [address] [place] [address] 02/10/2025 11:40 AM EDT Office Visit [facility] Department Of Hematology/Oncology [place] [address] [place] [phone] Jhoana Wilkins MD [address] [facility] [address] [place], [place] [address] documented as of this encounter Procedures Procedure Name Priority Date/Time Associated Diagnosis Comments LAB RESULT 03/06/2024 7:06 PM EDT documented in this encounter Results * LAB RESULT (03/06/2024 7:06 PM EDT) Jhoana Wilkins MD HX AMB PROCEDURES documented in this encounter Visit Diagnoses Not on filedocumented in this encounter Care Teams Nurse Clinical Relationship Specialty Start Date End Date Radha Martel PA-C [address] [place] [address] PCP - General Internal Medicine 02/24/24 Vinod Robles MD 1 [place] [address] Primary Floor Broker Cardiovascular Disease 09/02/24 documented as of this encounter
--- OUTSIDE RECORDS SUMMARY | 2024-11-10 08:30 | XMS_ITS | Encounter Summary ---
Author Organization [facility] Address [address] [place] [address] Care Team Providers Care Financial Operations Clerk Name Role Phone Radha Martel PA-C Primary Care Provi mckenna Vinod Robles MD Unavailable [phone] Reason for Visit * Reason Comments Referral Encounter Details Date Type Department Care Team (Late st Contact Info) Description 07/16/[address] [address] Radha Martel PA-C [address] [place] [address] Referral Social History Tobacco Use Types Packs/Day Years [...] Description 11/24/2024 11:00 AM EST Office Visit [address] [place] [address] Radha Martel PA-C [address] [place] [address] 11/25/2024 8:00 AM EST Office Visit [facility] Dermatology [address] [place] [phone] Radha Martel PA-C [address] [place] [address] Radu Aleman MD 399 [facility] 260 [place] [address] 11/30/2024 8:45 AM EST Appointment [facility] Department of Cardiology [place] [address] [place] [phone] Antonio Puente MD [address] [facility] 100 [place] [address] 12/14/2024 8:30 AM EDT Office Visit [facility] Department of Cardiology [place] [address] [place] [phone] Antonio Puente MD [address] [facility] 100 [place] [address] 02/10/2025 11:40 AM EDT Office Visit [facility] Department Of Hematology/Oncology [place] [address] [place] [phone] Jhoana Wilkins MD 300 [facility] [address] [place], [place] [address] documented as of this encounter Visit Diagnoses Not on filedocumented in this encounter Care Teams Financial Operations Clerk Relationship Specialty Start Date End Date Radha Martel PA-C [address] [place] [address] PCP - General Internal Medicine 02/24/24 Vinod Rboles MD [address] [place] [address] Primary Oil Winterizer Cardiovascular Disease 09/02/24 documented as of this encounter
--- OUTSIDE RECORDS SUMMARY | 2024-11-10 08:30 | XMS_ITS | Encounter Summary ---
Author Organization [facility] Address [address] [place] [address] Care Team Providers Care Sexual Assault Social Worker Name Role Phone Radha Martel PA-C Primary Care Provi mckenna Vinod Robles MD Unavailable [phone] Encounter Details Date Type Department Care Team (Late st Contact Info) Description 05/26/2024 Scanned Document [facility] [address] [place] [address] Internal Medicine, Scan Social History Tobacco Use Types Packs/Day Years [...] Description 11/24/2024 11:00 AM EST Office Visit [address] [phone] Radha Martel PA-C [address] [place] [address] 11/25/2024 8:00 AM EST Office Visit [facility] Dermatology [address] [place] [address] Radha Martel PA-C [address] [place] [address] Radu Aleman MD [address] [place] [address] 11/30/2024 8:45 AM EST Appointment [facility] Physicians Department of Cardiology [place] [address] [place] [phone] Antonio Puente MD [address] [place] [address] 12/14/2024 8:30 AM EDT Office Visit [facility] Physicians Department of Cardiology [place] [address] [place] [phone] Antonio Puente MD [address] [place] [address] 02/10/2025 11:40 AM EDT Office Visit [facility] Department Of Hematology/Oncology [place] [address] [place] [phone] Jhoana Wilkins MD [address] [place], [place] [phone] documented as of this encounter Visit Diagnoses Not on filedocumented in this encounter Care Teams Sexual Assault Social Worker Relationship Specialty Start Date End Date Radha Martel PA-C [address] [place] [address] PCP - General Internal Medicine 02/24/24 Vinod Robles MD [facility] [place] [address] Primary Service Associate Cardiovascular Disease 09/02/24 documented as of this encounter
--- OUTSIDE RECORDS SUMMARY | 2024-11-10 08:31 | XMS_ITS | Encounter Summary ---
Author Organization [facility] Address [address] [place] [address] Care Team Providers Care Travel Clerk Name Role Phone Radha Martel PA-C Primary Care Provi mckenna Vinod Robles MD Unavailable [phone] Encounter Details Date Type Department Care Team (Late st Contact Info) Description 08/19/2024 Scanned Document [address] [phone] Radha Martel PA-C [address] [place] [address] Social History Tobacco Use Types Packs/Day Years [...] Description 11/24/2024 11:00 AM EST Office Visit [address] [address] Radha Martel PA-C [address] [place] [address] 11/25/2024 8:00 AM EST Office Visit [facility] Dermatology [address] [place] [address] Radha Martel PA-C [address] [place] [address] Radu Aleman MD [address] [facility] [address] [place] [address] 11/30/2024 8:45 AM EST Appointment [facility] Physicians Department of Cardiology [place] [address] [place] [address] Antonio Puente MD [address] [place] [address] 12/14/2024 8:30 AM EDT Office Visit [facility] Physicians Department of Cardiology [place] [address] [place] [phone] Antonio Puente MD [address] [place] [address] 02/10/2025 11:40 AM EDT Office Visit [facility] [place] Department Of Hematology/Oncology [place] [address] [place] [phone] Jhoana Wilkins MD 300 [facility] [address] [place], [place] [address] documented as of this encounter Visit Diagnoses Not on filedocumented in this encounter Care Teams Travel Clerk Relationship Specialty Start Date End Date Radha Martel PA-C [address] [place] [address] PCP - General Internal Medicine 02/24/24 Vinod Robles MD [address] [place] [address] Primary Yard Conductor Cardiovascular Disease 09/02/24 documented as of this encounter
--- OUTSIDE RECORDS SUMMARY | 2024-11-10 08:31 | XMS_ITS | Encounter Summary ---
Author Organization [facility] Address [address] [place], [place] [address] Care Team Providers Care Tank Farm Attendant Name Role Phone Radha Martel PA-C Primary Care Provi mckenna Vinod Robles MD Unavailable [phone] Encounter Details Date Type Department Care Team (Late st Contact Info) Description 09/15/2024 Scanned Document [address] [phone] Otolaryngology, Scan Social History Tobacco Use Types Packs/Day [...] Encounters Date Type Department Care Team (Late Contact Info) Description 11/24/2024 11:00 AM EST Office Visit [address] [phone] Radha Martel PA-C [address] [place] [address] 11/25/2024 8:00 AM EST Office Visit [facility] Dermatology [address] [place] [address] Radha Martel PA-C [address] [place] [address] Radu Aleman MD [address] [place] [address] 11/30/2024 8:45 AM EST Appointment [facility] Physicians Department of Cardiology [place] [address] [place] [phone] Antonio Puente MD [address] [place] [address] 12/14/2024 8:30 AM EDT Office Visit [facility] Department of Cardiology [place] [address] [place] [phone] Antonio Puente MD [address] [place] [address] 02/10/2025 11:40 AM EDT Office Visit [facility] Department Of Hematology/Oncology [place] [address] [place] [phone] Jhoana Wilkins MD [address] [place], [place] [phone] documented as of this encounter Visit Diagnoses Not on filedocumented in this encounter Care Teams Tank Farm Attendant Relationship Specialty Start Date End Date Radha Martel PA-C [address] [place] [address] PCP - General Internal Medicine 02/24/24 Vinod Robles MD [address] [place] [address] Primary Hedge Trimmer Cardiovascular Disease 09/02/24 documented as of this encounter
--- OUTSIDE RECORDS SUMMARY | 2024-11-10 08:31 | XMS_ITS | Data Portability ---
Author Organization [place] - [facility], [facility], Patient Home Address [address] [place] [phone] Care Team Providers Care Hotbed Lever Operator Name Role Phone NIKITA AZAR Primary Care Provider [phone] NIKITA AZAR Referring Provider Assessment No assessment recorded. Plan of Treatment Reminders Order Date Submit Date Provider Last Modified By Organization Details Last Modified Time Details Appointments None recorde d. Lab drug screen, urine 020 02/11/20 20 [email or web address] Main Office, [address] [place] [address], [phone], 0 18:38:20 Referral None recorde d. Procedures None recorde d. Surgeries None recorde d. Imaging None recorde d. Medication Orders None recorde d. 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 Results Created Date Observation Date Name Description Value Unit Range Abnormal Flag Note LastModifiedBy Organization Detail LastModifiedTime 02/11/20 20 02/11/2020 drug scree n, urine Amphetamines : negati ve Not Available Main Office [address] [place] [address], [phone], 02/11/2020 13:48:41 02/11/20 20 02/11/2020 drug scree n, urine Cannabinoids :THC negati ve Not Available Main Office [address] [place] [address], [place], [address], 02/11/2020 13:48:41 02/11/20 20 02/11/2020 drug scree n, urine Cocaine: negati ve Not Available Main Office [address] [place] [address], [place], [address], 02/11/2020 13:48:41 02/11/20 20 02/11/2020 drug scree n, urine Methadone: negati ve Not Available Main Office [address] [place] [address], [place], [address], 02/11/2020 13:48:41 02/11/20 20 02/11/2020 drug scree n, urine Opiates: negati ve Not Available Main Office [address] [place] [address], [place], [address], 02/11/2020 13:48:41 02/11/20 20 02/11/2020 drug scree n, urine Oxycodone: negati ve Not Available Main Office [address] [place] [address], [place], [address], 02/11/2020 13:48:41 02/11/20 20 02/11/2020 drug scree n, urine Phenocyclidi ne: negati ve Not Available Main Office [address] [place] [address], [place], [address], 02/11/2020 13:48:41 02/11/20 20 02/11/2020 drug scree n, urine Barbiturates : negati ve Not Available Main Office [address] [place] [address], [place], [address], 02/11/2020 13:48:41 02/11/20 20 02/11/2020 drug scree n, urine Benzodiazepi jacqueline: positi ve Not Available Main Office [address] [address], [place], [address], 02/11/2020 13:48:41 02/11/20 20 02/11/2020 drug scree n, urine Buprenorphin e negati ve Not Available Main Office [address] [address], [place], [address], 02/11/2020 13:48:41 02/11/20 20 02/11/2020 drug scree n, urine Methamphetam ine negati ve Not Available Main Office [address] [address], [place], [address], 02/11/2020 13:48:41 02/11/20 20 02/11/2020 drug scree n, urine MDMA negati ve Not Available Main Office [address] [place] [address], [place], [address], 02/11/2020 13:48:41 02/24/20 20 MRI, lumba r spine , w/o contr ast No observ ation record ed. [email or web address] Not Available 14:53:31 Result Notes None recorded. Problems Name Problem SNOMED Code Status Onset Date Resolution Date Notes Provider Name and Address Organization Details Recorded Time Fibromyalgia 486346748 Active 2019 Esa Alas MD [address] [place] [address], [place], [phone], [facility], [facility] 0 14:27:21 Depressive disorder 83578693 Active 2019 Esa Alas MD [address] [place] [address], [place], [phone], [facility], [facility] 0 14:27:53 Anxiety 32049367 Active 2019 Esa Alas MD [address] [place] [address], [phone], [facility], [facility] 0 14:28:05 Asthma 149634103 Active 2019 Esa Alas MD [address] [place] [address], [address] [place] [address] 4, [facility], [facility] 0 14:28:42 Problem Notes None recorded. Procedures Surgical History None recorded. Imaging Results Imaging Date Name Status LastModified by Organiz ation Details LastModified Time 02/24/2020 MRI, lumbar spine, w/o contrast [facility] Information not available 05/06/2023 14:53:31 Procedure Notes None recorded. Medical Equipment None Reported. Allergies Allergen ID Allergen Name Allergen Category Reaction Reaction Severity Criticality Documentation Date Start Date Code Code System Note Provider Name and Address Organization Details Recorded Time 1541 clindamyc in Not available Not available Not available Not available 02/11/2020 2582 RxNorm Esa Alas MD [address] [place] [address], [address] [place] [address] 4, [facility], [facility] 0 14:27:01 1542 adhesive tape environme nt,medica tion Not available Not available Not available 02/11/2020 50207 UNK Esa Alas MD [address] [place] [address], [address] [place] [address] 4, [facility], [facility] 0 14:27:10 Medications Name Sig Start Date Stop Date Status Note LastModified by Organization Details LastModified Time venlafaxine ER 37.5 mg capsule,extended release 24 hr active Not Available Not Availabl e Not Available venlafaxine ER 75 mg capsule,extended release 24 hr active Not Available Not Availabl e Not Available gabapentin 600 mg tablet active Not Available Not Available Not Available citalopram 40 mg tablet active Not Available Not Available Not Available trazodone 50 mg tablet active Not Available Not Available Not Available azithromycin 250 mg tablet active Not Available Not Available Not Available tizanidine 4 mg tablet active Not Available Not Available Not Available ketotifen 0.025 % (0.035 %) eye drops active Not Available Not Av ailable Not Available hydrocodone 5 mg-acetaminophen 325 mg tablet active Not Available Not Availabl e Not Available ondansetron HCl 4 mg tablet active Not Available Not Available No t Available prednisone 20 mg tablet active Not Available Not Available Not Available gabapentin 400 mg capsule active Not Available Not Available Not Available methylprednisolone 4 mg tablet active Not Available Not Available Not Available sumatriptan 50 mg tablet active Not Available Not Available Not Available topiramate 25 mg tablet active Not Available Not Available Not Available peg-electrolyte solution 420 gram oral solution active Not Available Not Availabl e Not Available doxycycline monohydrate 100 mg tablet active Not Available Not Available Not Available tramadol 50 mg tablet active Not Available Not Available Not Available oxycodone-acetamino phen 5 mg-325 mg tablet active Not Available Not Available Not Available ofloxacin 0.3 % ear drops active Not Available Not Available Not Available citalopram 20 mg tablet active Not Available Not Available Not Available methocarbamol 750 mg tablet active Not Available Not Available No t Available oseltamivir 75 mg capsule active Not Available Not Available Not Available mupirocin calcium 2 % topical cream active Not Available Not Availa ble Not Available buspirone 7.5 mg tablet active Not Available Not Available Not Available montelukast 10 mg tablet active Not Available Not Available Not Available gabapentin 100 mg capsule active Not Available Not Available Not Available ergocalciferol (vitamin D2) 1,250 mcg (50,000 unit) capsule active Not Available Not Available Not Available lorazepam 1 mg tablet active Not Available Not Available Not Available azelastine 137 mcg (0.1 %) nasal spray active Not Available Not Av ailable Not Available cefuroxime axetil 500 mg tablet active Not Available Not Availabl e Not Available methylprednisolone 4 mg tablets in a dose pack active Not Available Not Available No t Available hydroxyzine HCl 10 mg tablet active Not Available Not Available No t Available fluticasone propionate 50 mcg/actuation nasal spray,suspension active Not Available Not Avail able Not Available sertraline 50 mg tablet active Not Available Not Available Not Available dicyclomine 10 mg capsule active Not Available Not Available Not Available naproxen 500 mg tablet active Not Available Not Available Not Available diazepam 5 mg tablet active Not Available Not Available Not Available Ventolin HFA 90 mcg/actuation aerosol inhaler active Not Available Not Availa ble Not Available buspirone 15 mg tablet active Not Available Not Available Not Available tobramycin 0.3 %-dexamethasone 0.1 % eye drops,suspension active Not Available Not Avail able Not Available neomycin-polymyxin- hydrocort 3.5 mg-10,000 unit/mL-1 % ear drops,susp active Not Available Not Avail able Not Available escitalopram 10 mg tablet active Not Available Not Available Not Available cyclobenzaprine 5 mg tablet active Not Available Not Available No t Available duloxetine 20 mg capsule,delayed release active Not Available Not Available Not Available Flovent HFA 220 mcg/actuation aerosol inhaler active Not Available Not Availa ble Not Available ferrous sulfate 324 mg (65 mg iron) tablet,delayed release active Not Available Not Available Not Available levocetirizine 5 mg tablet active Not Available Not Available Not Available baclofen 5 mg tablet active Not Available Not Available Not Available Vitals None Recorded Social History None recorded. Functional Status None recorded. Mental Status None recorded. Family History Nothing Reported. Medical History Condition Response Coronary Artery Disease N Gout N Head Trauma/Injury N Hernia N Thyroid Problems N Depression N COPD N Anemia N Ulcers N Heart Attack (PR) N Diabetes N Anxiety Disorder Y Bleeding Disorder N Arthritis N Tuberculosis N AIDS/HIV N Acid Reflux (GERD) N Cancer N Stroke N Asthma Y Substance Abuse N Back Injury N High Cholesterol N Hepatitis N Liver Disease N Heart Disease N Fibromyalgia Y Headaches Y Hypertension N Osteoporosis N Kidney Disease N Gynecological HistoryNo gynecological history recorded. Obstetrics History GPAL:G 0 P 0 0 0 0 Past Encounters Encounter ID Performer Location Encounter Start Date Encounter Closed Date Diagnosis/Indication Diagnosis SNOMED-CT Code Diagnosis ICD10 Code Diagnosis Note [id number] Esa Alas MD Main Office [address] [place] [address] [address] [place] [address] 02/11/2020 13:08:23 02/11/2020 16:54:21 Long-term current use of opiate analgesic drug 9152266602 79169 Z79.891 Lumbosacra l spondylosis without myelopathy 33362426 M47.817 L>R. weight reduction. HEP. RFR if the pain persist. Degenerati on of lumbar intervertebral disc 58849015 M51.36 weight reduction [place] Low back pain 240491157 M54.5 HEP [employer] [place] Health Concerns Section Related Observation LastModified by Organization Detai ls LastModified Time None Recorded Concern Status LastModified by Organization Details LastModified Time None Recorded Advance Directives Directive None Recorded Payers Encounter Date Sequence Insurance Name Policy Number Policy Adames Covered Member ID Adames Member ID Guarantor Name 02/11/2020 1 [facility] (O) [id number] Deyanira Poor [id number] Deyanira Poor Notes Date Note Type Note Provider Name and Address Organization Details Recorded Time 02/11/2020 text/html Back PainReporte d bypatient.Location :lumbar Quality:sharp;dull ;stiffness Severity:pain level 2-8/10 Duration:chronic Context:atraumatic Alleviating Factors:rest Aggravating Factors:movement/p ositioning; twisting; flexing back; extending back; worse at night Prior Imaging:MRI 30 years RH female with h/o LBP for about one year, was diagnosed for FM on 11/26, s/p L-SIMOEN x 2, s/p P.T. She presented today with LBP, deep aching, constant, rated as 2-8/10 VAS,without radiation to the LEs and without paresthesia. She had L-spine MRI on 02/10/20 with impression: Congenital variant of the lumbosacral spine. Mild stable degenerative changes in the facet joints at L3-4 and L4-5 level. Narrowing of the neiral foramina at S1-S2 level with effacement of the S1 nerve roots. She had screening UT today which was +ve for Benzo. Esa Alas MD [address] [place] [address],[address], [place], [address], [facility], [facility] 02/13/2020 18:38:24 OBGyn Episode No OBEpisode recorded.
--- OUTSIDE RECORDS SUMMARY | 2024-11-10 08:31 | XMS_ITS | Data Portability ---
Author Organization [place] [facility] Cedric Solorzano [place] [place] Address [address] [place] [address] Care Team Providers Care Real Estate Marketing Coordinator Name Role Phone DEBORAH WATTS Primary Care Provider Assessment Encounter Date Assessment Date Assessment LastModified by Organization Details LastModified Time 04/17/2023 04/17/2023 Patient appears to have had a subluxation of her shoulder. We reviewed her x-rays together on the computer. There is no evidence of a high-grade rotator cuff tear or significant labral injury at this point. She was offered a trial of physical therapy and eager to proceed. For pain and inflammation, she was prescribed Lodine. The risk, benefits and potential side effects were reviewed. All questions were answered to her satisfaction. She will follow-up in 4 weeks to assess progress with therapy, sooner for any complications. [email or web address] Not available 04/20/2023 15:01:29 Plan of Treatment Reminders Order Date Submit Date Provider Last Modified By Organization Details Last Modified Time Details Appointments None recorded. Lab None recorded. Referral physical therapist referral - Frequency: 2 visits per week for 6 weeksTherap y: Evaluate and TreatModali ties:As neededPreca utions - if any:Goals: ROM, HEP, Decrease Pain, Increase Strength and Increase Endurance. 2022 023 [email or web address] Not available 10:00:21 Procedures None recorded. Surgeries None recorded. Imaging XR, shoulder, 2 or more view 2022 023 [email or web address] [facility], [address], [place], [address], 11:19:47 Medication Orders Lodine 400 mg tablet 2022 023 [id number], [address] [facility], [place], [address], 09:13:20 Patient TargetsNo targets recorded. Patient Instructions Encounter Date Encounter Id Patient Instructions Last Modified By Organization Details Last Modified Time 04/17/2023 [id number] Views of the {{Right Left* Bila teral}} shoulder were obtained in the {{[place]* Phi} } office including AP, Grashey and outlet views. Good bone mineralization. No significant degenerative changes in the AC joint with no widening. Well maintained Glenohumoral joint space. No abnormal calcifications in the lateral shoulder. No evidence of acute injury or fracture. Interpretation by: Jayce García PA-C Not available 04/17/2023 09:14:44 Reason for Referral Physical Therapist Referral for Subluxation of shoulder joint Frequency: 2 visits per week for 6 weeksTherapy: Evaluate and TreatModalities:As neededPrecautions - if any:Goals: ROM, HEP, Decrease Pain, Increase Strength and Increase Endurance. Referring Physician: Jayce García, Orthopedic Surgery, Encounter Date: 04/17/2023 Problems Name Problem SNOMED Code Status Onset Date Resolution Date Notes Provider Name and Address Organization Details Recorded Time Subluxation of shoulder joint [id number] Active 2022 JAYCE GARCÍA PA-C [address], [place], [address] [place] [facility] 09:11:52 Problem Notes None recorded. Procedures Surgical History Date Name Laterality Status Provider Name and Address Organization Details Recorded Time Gallbladder Surgery completed Kisha Howard [place] [facility] 04/17/2023 09:04:13 delivery completed Kisha Howard [place] [facility] 04/17/2023 09:04:29 Tonsillectomy/A denoidectomy completed Kisha Howard [place] [facility] 04/17/2023 09:04:45 operation on heart completed Kisha Howard [place] [facility] 04/17/2023 09:04:54 Imaging Results None recorded. Procedure Notes None recorded. Medical Equipment None Reported. Allergies Allergen ID Allergen Name Allergen Category Reaction Reaction Severity Criticality Documentation Date Start Date Code Code System Note Provider Name and Address Organization Details Recorded Time 6107 clindamyc in Not available Not available Not available Not available 04/17/2023 2582 RxNorm Kisha Howard [place], [place] - [facility] 09:00:19 Medications Name Sig Start Date Stop Date Status Note LastModified by Organization Details LastModified Time quetiapine 25 mg tablet TAKE 1 TABLET BY MOUTH EVERYDAY AT BEDTIME active Not Available Not Available No t Available ziprasidone 80 mg capsule TAKE 1 CAPSULE BY MOUTH AT BEDTIME active Not Available Not Available No t Available Vitamin B-2 100 mg tablet TAKE 4 TABLETS BY MOUTH DAILY active Not Available Not Available Not Available benztropine 0.5 mg tablet TAKE 1 TABLET BY MOUTH TWICE A DAY active Not Available Not Available No t Available cetirizine 10 mg tablet TAKE 1 TABLET BY MOUTH EVERY DAY active Not Available Not Available No t Available fluconazole 150 mg tablet TAKE 1 TABLET BY MOUTH EVERY 3 DAYS active Not Available Not Available No t Available methylphenid ate 10 mg tablet TAKE ONE AND ONE HALF (1.5) TABLETS BY MOUTH EVERY MORNING AND ONE (1) TABLET EVERY AFTERNOON active Not Available Not Available No t Available sumatriptan 100 mg tablet PLEASE SEE ATTACHED FOR DETAILED DIRECTIONS active Not Available Not Available N ot Available sucralfate 100 mg/mL oral suspension active Not Available Not Available N ot Available methylphenid ate 5 mg tablet TAKE 1 TABLET BY MOUTH EVERY DAY IN THE MORNING active Not Available Not Available No t Available rizatriptan 10 mg tablet TAKE 1/2 TO 1 TABLET NEEDED FOR MIGRAINE. MAY REPEAT AFTER 2 HOURS. MAX 2 TABS/DAY, 4 TABS/WEEK. active Not Available Not Available N ot Available clonazepam 1 mg tablet TAKE 1 TABLET BY MOUTH TWICE A DAY NEEDED active Not Available Not Available No t Available naproxen 250 mg tablet TAKE 1 TABLET BY MOUTH TWICE A DAY FOR 7 DAYS active Not Available Not Available No t Available melatonin 3 mg tablet TAKE ONE (1) TABLET BY MOUTH EVERY EVENING AT 8PM active Not Available Not Available No t Available valacyclovir 500 mg tablet TAKE 1 TABLET BY MOUTH EVERY DAY active Not Available Not Available No t Available tramadol 50 mg tablet TAKE 1 TABLET BY MOUTH 3 TIMES A DAY active Not Available Not Available Not Available amoxicillin 500 mg tablet TAKE 1 TABLET BY MOUTH 3 TIMES A DAY UNTIL DIRECTED TO STOP active Not Available Not Available No t Available ondansetron 8 mg disintegrati ng tablet DISSOLVE 1 TABLET IN MOUTH EVERY 8 HOURS NEEDED FOR NAUSEA active Not Available Not Available No t Available lamotrigine 25 mg tablet TAKE 3 TABLETS BY MOUTH EVERY DAY FOR 14 DAYS active Not Available Not Available No t Available zinc sulfate 50 mg zinc (220 mg) tablet TAKE 1 TABLET BY MOUTH EVERY DAY active Not Available Not Available No t Available propranolol 10 mg tablet TAKE 1 TABLET BY MOUTH TWICE A DAY active Not Available Not Available No t Available famotidine 20 mg tablet active Not Available Not Available Not Available prednisolone acetate 1 % eye drops,suspen char INSTILL 1 DROP INTO BOTH EYE(S) 4 TIMES DAILY FOR 2 WEEKS. active Not Available Not Available No t Available magnesium oxide 400 mg (241.3 mg magnesium) tablet TAKE 1 TABLET BY MOUTH AT BEDTIME. MAY HOLD FOR LOOSE STOOLS active Not Available Not Available No t Available cephalexin 500 mg capsule TAKE 1 CAPSULE BY MOUTH FOUR TIMES A DAY FOR 7 DAYS active Not Available Not Available N ot Available erythromycin 5 mg/gram (0.5 %) eye ointment APPLY 1/2 INCH INTO EACH EYE EVERY EVENING active Not Available Not Available No t Available etodolac 400 mg tablet TAKE 1 TABLET BY MOUTH TWICE A DAY active Not Available Not Available No t Available hydroxyzine HCl 25 mg tablet TAKE 1 TABLET BY MOUTH AT BEDTIME active Not Available Not Available No t Available cyanocobalam in (vit B-12) 1,[address] 1 TABLET UNDER THE TONGUE DAILY active Not Available Not Available No t Available morphine 15 mg immediate release tablet TAKE 1 TABLET BY MOUTH EVERY 8 HOURS NEEDED FOR PAIN active Not Available Not Available No t Available ziprasidone 60 mg capsule TAKE 1 CAPSULE BY MOUTH EVERY DAY IN THE MORNING active Not Available Not Available No t Available ondansetron 4 mg disintegrati ng tablet TAKE 1 TABLET BY MOUTH EVERY 8 HOURS NEEDED FOR NAUSEA active Not Available Not Available No t Available fluticasone propionate 50 mcg/actuatio n nasal spray,suspen char USE 2 SPRAYS INTO EACH NOSTRIL DAILY FOR 30 DAYS active Not Available Not Available No t Available cholecalcife rol (vitamin D3) 125 mcg (5,000 unit) capsule TAKE 1 CAPSULE BY MOUTH EVERY WEEK FOR 12 WEEKS active Not Available Not Available No t Available lamotrigine 100 mg tablet TAKE 1 TABLET BY MOUTH EVERY DAY active Not Available Not Available No t Available metocloprami de 10 mg tablet TAKE 1 TABLET BY MOUTH 3 TIMES A DAY NEEDED active Not Available Not Available No t Available doxazosin 2 mg tablet TAKE 1 TABLET BY MOUTH EVERY DAY active Not Available Not Available No t Available oxycodone 5 mg tablet TAKE 1 TABLET (5 MG TOTAL) BY MOUTH EVERY 8 (EIGHT) HOURS NEEDED FOR PAIN FOR UP TO 3 DAYS. active Not Available Not Available N ot Available sumatriptan 6 mg/0.5 mL subcutaneous pen injector INJECT 1 PEN SUBCUTANEOU SLY ONCE NEEDED FOR MIGRAINE HEADACHE active Not Available Not Available No t Available topiramate 50 mg tablet TAKE 1 TABLET BY MOUTH TWICE A DAY FOR 30 DAYS active Not Available Not Available No t Available pregabalin 150 mg capsule TAKE 1 CAPSULE BY MOUTH TWICE A DAY active Not Available Not Available No t Available benztropine active Not Available Not A vailable Not Available Seroquel active Not Available Not Avai lable Not Available valacyclovir active Not Available Not Available Not Available Lamictal active Not Available Not Avai lable Not Available Geodon active Not Available Not Availa ble Not Available pregabalin active Not Available Not Av ailable Not Available quetiapine 50 mg tablet TAKE 1/2 TO 1 TABLET BY MOUTH AT BEDTIME NEEDED FOR SLEEP active Not Available Not Available No t Available cholecalcife rol (vitamin D3) 1,250 mcg (50,000 unit) capsule TAKE 1 CAPSULE BY MOUTH ONCE A WEEK FOR 12 DOSES. active Not Available Not Available No t Available melatonin 5 mg tablet TAKE 1 TABLET BY MOUTH AT BEDTIME NEEDED FOR INSOMNIA active Not Available Not Available No t Available armodafinil 150 mg tablet TAKE 1 TABLET BY MOUTH EVERY MORNING FOR 30 DAYS active Not Available Not Available No t Available armodafinil 250 mg tablet active Not Available Not Available Not Available armodafinil active Not Available Not A vailable Not Available Trokendi XR 200 mg capsule, extended release TAKE 1 CAPSULE BY MOUTH DAILY active Not Available Not Available Not Available armodafinil 200 mg tablet TAKE 1 TABLET BY MOUTH EVERY MORNING active Not Available Not Available No t Available Trulicity 0.75 mg/0.5 mL subcutaneous pen injector INJECT 1 PEN SUBCUTANEOU SLY EVERY WEEK active Not Available Not Available No t Available Vraylar 1.5 mg capsule TAKE 1 CAPSULE BY MOUTH EVERY DAY active Not Available Not Available No t Available Vraylar active Not Available Not Avail able Not Available riboflavin (vitamin B2) 400 mg tablet TAKE 1 TABLET BY MOUTH EVERY DAY active Not Available Not Available No t Available Aimovig Autoinjector 140 mg/mL subcutaneous auto-injecto r INJECT 140 MG SUBCUTANEOU SLY ONCE FOR 30 DAYS active Not Available Not Available Not Available Wegovy 2.4 mg/0.75 mL subcutaneous pen injector INJECT 0.75 ML (2.4 MG TOTAL) UNDER THE SKIN ONCE A WEEK. active Not Available Not Available No t Available Paxlovid 300 mg (150 mg x 2)-100 mg tablets in a dose pack PLEASE SEE ATTACHED FOR DETAILED DIRECTIONS active Not Available Not Available N ot Available Seglentis 44 mg-56 mg tablet TAKE 2 TABLETS BY MOUTH TWICE A DAY active Not Available Not Available No t Available Vitals Date Recorded Body height Body mass index (BMI) Body weight Provider Name and Address Organization Details Last Updated DateTime 04/17/2023 142.24 cm 37 kg/m2 31598.74 g Kisha Howard [facility] 04/17/2023 09:02:48 Social History Question Answer Notes LastModified by Organizat ion Details LastModified Time Tobacco Smoking Status Former Smoker Kisha Anita [place], [place] - [facility] 04/17/2023 09:03:11 What Is Your Level Of Alcohol Consumption? None Information not available 04/17/2023 Do You Use Any Illicit Or Recreational Drugs? No [email or web address] Information not available 04/17/2023 Do You Or Have You Ever Used Any Other Forms Of Tobacco Or Nicotine? No [email or web address] Information not available 04/17/2023 Sex: Unknown Functional Status None recorded. Mental Status None recorded. Family History Nothing Reported. Medical History Condition Response Asthma Y Gynecological HistoryNo gynecological history recorded. Obstetrics History GPAL:G 0 P 0 0 0 0 Past Encounters Encounter ID Performer Location Encounter Start Date Encounter Closed Date Diagnosis/Indication Diagnosis SNOMED-CT Code Diagnosis ICD10 Code Diagnosis Note [id number] JAYCE GARCÍA PA-C [facility] [address] [place] [address] 04/17/2023 08:41:33 04/17/2023 11:19:47 Pain of left shoulder joint [id number] M25.512 Subluxatio n of shoulder joint 888823207 S43.022A Health Concerns Section Related Observation LastModified by Organization Detai ls LastModified Time None Recorded Concern Status LastModified by Organization Details LastModified Time None Recorded Advance Directives Directive None Recorded Payers Encounter Date Sequence Insurance Name Policy Number Policy Adames Covered Member ID Adames Member ID Guarantor Name 04/17/2023 1 [place] [id number] 2 Osiel Araceli [id number] Deyaniracindy Charles Notes Date Note Type Note Provider Name and Address Organization Details Recorded Time 04/17/2023 text/html Patient is a 33-year-old female who presents today with left shoulder pain. Her significant other was giving her a massage technique where he was pulling her arms behind her. She felt a pop in her shoulder and sudden discomfort. She has noted discomfort in her shoulder with a constant ache. No numbness or tingling. No prior injury or trauma. JAYCE GARCÍA PA-C [address], [place], [address], [place] [facility] 04/20/2023 15:01:37 OBGyn Episode No OBEpisode recorded.
--- OUTSIDE RECORDS SUMMARY | 2024-11-10 08:31 | XMS_ITS | Encounter Summary ---
Author Organization [facility] Address [address] [place] [address] Care Team Providers Care Communication Electronic Technician Name Role Phone Radha Martel PA-C Primary Care Provi mckenna Vinod Robles MD Unavailable [phone] Encounter Details Date Type Department Care Team (Late st Contact Info) Description 03/10/2024 Scanned Document [facility] Department Of Hematology/Oncology [address] [phone] Jhoana Wilkins MD [address] [facility] [address] [place] [address] Social History Tobacco Use Types Packs/Day Years [...] Description 11/24/2024 11:00 AM EST Office Visit [address] [phone] Radha Martel PA-C [address] [place] [address] 11/25/2024 8:00 AM EST Office Visit [facility] Dermatology [address] [place] [address] Radha Martel PA-C [address] [place] [address] Radu Alemna MD [address] [place] [address] 11/30/2024 8:45 AM EST Appointment [facility] Department of Cardiology [place] [address] [place] [phone] Antonio Puente MD [address] [place] [address] 12/14/2024 8:30 AM EDT Office Visit [facility] Department of Cardiology [place] [address] [place] [phone] Antonio Puente MD [address] [place] [address] 02/10/2025 11:40 AM EDT Office Visit [facility] Department Of Hematology/Oncology [place] [address] [place] [phone] Jhoana Wilkins MD [address] [place], [place] [phone] documented as of this encounter Visit Diagnoses Not on filedocumented in this encounter Care Teams Communication Electronic Technician Relationship Specialty Start Date End Date Radha Martel PA-C [address] [place] [address] PCP - General Internal Medicine 02/24/24 Vinod Robles MD [facility] [place] [address] Primary Paper Box Cutter Cardiovascular Disease 09/02/24 documented as of this encounter
--- OUTSIDE RECORDS SUMMARY | 2024-11-10 08:32 | XMS_ITS | Encounter Summary ---
Author Organization [facility] Address [address] [place] [address] Care Team Providers Care Chemist Name Role Phone Radha Martel PA-C Primary Care Provi mckenna Vinod Robles MD Unavailable [phone] Encounter Details Date Type Department Care Team (Late st Contact Info) Description 03/13/2024 Telephone [facility] [address] [place] [phone] Radha Martel PA-C [address] [place] [address] Social History Tobacco Use Types Packs/Day Years [...] encounter Miscellaneous Notes * Telephone Encounter - Bimal Hudson MA - 03/16/2024 8:35 AM EDT I believe so I think this message was an FYI unless you want the patient to be seen sooner. * Telephone Encounter - Christiane Vallejo - 03/13/2024 1:05 PM EDT Patient needed a 30 min I placed this in a Urgent spot on the in the first half our provider had, if this is not ok and something sooner is needed please let me know. documented in this encounter Plan of Treatment Upcoming Encounters Date Type Department Care Team (Late st Contact Info) Description 11/24/2024 11:00 AM EST Office Visit [facility] [address] [facility] [address] [place] [address] Radha Martel PA-C [address] [place] [address] 11/25/2024 8:00 AM EST Office Visit [facility] Dermatology [address] [place] [address] Radha Martel PA-C [address] [place] [address] Radu Aleman MD [address] [facility] [address] [place], [place] [address] 11/30/2024 8:45 AM EST Appointment [facility] Department of Cardiology [place] [address] [place] [phone] Antonio Puente MD [address] [place], [place] [address] 12/14/2024 8:30 AM EDT Office Visit [facility] Department of Cardiology [place] [address] [place] [phone] Antonio Puente MD [address] [place] [address] 02/10/2025 11:40 AM EDT Office Visit [facility] Department Of Hematology/Oncology [place] [address] [place] [address] [address] [place] [phone] Jhoana Wilkins MD [address] [place], [place] [address] documented as of this encounter Visit Diagnoses Not on filedocumented in this encounter Care Teams Chemist Relationship Specialty Start Date End Date Radha Martel PA-C [address] [place] [address] PCP - General Internal Medicine 02/24/24 Vinod Robles MD [address] [place] [address] Primary Shirt Operator Cardiovascular Disease 09/02/24 documented as of this encounter
--- OUTSIDE RECORDS SUMMARY | 2024-11-10 08:32 | XMS_ITS | Referral Summary ---
Author Organization [facility] Address [address] [place] [address] Care Team Providers Care Supervisor Assembly And Packing Name Role Phone Radha Martel Primary Care Provider Allergies Active Allergy Reactions Criticality Noted Date Comments Adhesive Unknown 01/17/2020 tape Clindamycin Hcl Anaphylaxis High 10/23/2011 Tapentadol Rash High 08/04/2014 Venlafaxine Unknown 06/01/2020 Suicidal ideation Medications valACYclovir (VALTREX) 500 mg tablet Take 1 tablet by mouth daily. 1 Active triamcinolone (NASACORT) 55 mcg nasal inhaler U 2 SPRAYS IEN D 0 Active Mi-Acid Gas Relief,simethic on, 80 mg chewable tablet DTP OPERATOR ONE T Q 6 H PRN 0 Active olopatadine (PATANOL) 0.1 % ophthalmic solution Instill 1 drop into affected eye(s). 0 Active montelukast (SINGULAIR) 10 mg tablet TAKE 1 TABLET BY MOUTH AT BEDTIME 0 Active methocarbamoL (ROBAXIN) 750 mg tablet 0 Active fluticasone propionate (FLONASE) 50 mcg/actuation nasal spray SHAKE LQ AND U 2 SPRAYS IEN D 0 Active ergocalciferol (VITAMIN D2) 1,250 mcg (50,000 unit) capsule TAKE 1 CAPSULE BY MOUTH 1 TIME A WEEK 1 Active cloNIDine (CATAPRES) 0.1 mg tablet Take 0.1 mg by mouth nightly. at bedtime. 0 Active clonazePAM (KlonoPIN) 1 mg tablet TAKE 1 TABLET BY MOUTH TWICE A DAY NEEDED FOR ANXIETY/PAIN. DO NOT TAKE WITH LORAZEPAM 1 Active pregabalin (LYRICA) 25 mg capsule TAKE 1 CAPSULE BY MOUTH TWICE A DAY 60 capsule 5 1 Active methylphenidate HCl (RITALIN) 10 mg tablet 2 Active benztropine (COGENTIN) 0.5 mg tablet 2 Active quetiapine fumarate (SEROQUEL ORAL) Take by mouth. Active doxazosin (CARDURA) 2 mg tablet Take 2 mg by mouth once a day. 2 Active topiramate (TOPAMAX) 50 mg tablet Take 50 mg by mouth 2 times a day. 2 Active ziprasidone (GEODON) 60 mg capsule Take 60 mg by mouth once a day. 2 Active ziprasidone (GEODON) 80 mg capsule 2 Active erythromycin (ILOTYCIN) 0.5% ophthalmic ointment SMARTSI.5 Inch(es) In Eye(s) Every Evening 2 Active Social History Tobacco Use Types Packs/Day Years Used Date Smoking Tobacco: Never Smokeless Tobacco: Never Tobacco Cessation:Counseling Given: Not Answered Alcohol Use Standard Drinks/Week Comments Not Currently 0 (1 standard drink = 0.6 oz pur e alcohol) Comments Unknown Sex and Gender Information Value Date Recorded Sex Assigned at Female 05/19/2024 8:39 AM EDT Legal Sex Female 12:34 PM EDT Gender Identity Not on file Sexual Orientation Not on file Last Filed Vital Signs Vital Sign Reading Time Taken Comments Blood Pressure 106/71 10/31/2020 10:14 AM EST Pulse 74 10/31/2020 10:14 AM EST Temperature 36.7 ??C (98 ??F) 10/31/2020 10:14 AM EST Respiratory Rate 16 10/31/2020 10:14 AM EST Oxygen Saturation - - Inhaled Oxygen Concentration - - Weight 69.9 kg (154 lb) 10/31/2020 10:14 AM EST Height 142.2 cm (4' 8 ) 10/31/2020 10:14 AM EST Body Mass Index 34.53 10/31/2020 10:14 AM EST Plan of Treatment Not on file Insurance HSNO/FREE CARE Care Teams Supervisor Assembly And Packing Relationship Specialty Start Date End Date Radha Martel [address] [place] [address] PCP - General Internal Medicine 03/30/24
--- OUTSIDE RECORDS SUMMARY | 2024-11-10 08:32 | XMS_ITS | Encounter Summary ---
Author Organization [facility] Address [address] [place] [address] Care Team Providers Care Category Development Analyst Name Role Phone Radha Martel PA-C Primary Care Provi mckenna Vinod Robles MD Unavailable [phone] Encounter Details Date Type Department Care Team (Late st Contact Info) Description 10/29/2024 Scanned Document [address] [place] [phone] Provider, Generic Social History Tobacco Use Types Packs/Day Years [...] Description 11/24/2024 11:00 AM EST Office Visit [address] [phone] Radha Martel PA-C [address] [place] [phone] 11/25/2024 8:00 AM EST Office Visit [address] [place] [address] Radha Martel PA-C [address] [place] [address] Radu Aleman MD [address] [place], [place] [phone] 11/30/2024 8:45 AM EST Appointment [facility] Department of Cardiology [place] [address] [place] [phone] Antonio Puente MD [address] [place] [address] 12/14/2024 8:30 AM EDT Office Visit [facility] Department of Cardiology [place] [address] [place] [phone] Antonio Puente MD [address] [place] [address] 02/10/2025 11:40 AM EDT Office Visit [facility] Department Of Hematology/Oncology [place] [address] [place] [phone] Jhoana Wilkins MD [address] [place], [place] [phone] documented as of this encounter Visit Diagnoses Not on filedocumented in this encounter Care Teams Category Development Analyst Relationship Specialty Start Date End Date Radha Martel PA-C [address] [place] [address] PCP - General Internal Medicine 02/24/24 Vinod Robles MD [address] [place] [address] Primary Logger Driving Horses Cardiovascular Disease 09/02/24 documented as of this encounter
--- OUTSIDE RECORDS SUMMARY | 2024-11-10 08:32 | XMS_ITS | Encounter Summary ---
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 Encounter Details Date Type Department Care Team (Late st Contact Info) Description 10/29/2024 10:10 AM EST Office Visit [facility] [address] [place] [address] Jon Pleitez MD 1 [place] [address] Phuc Soto PA [address] [place] [address] Right foot injury, initial encounter (Primary Dx) Social History Tobacco Use Types Packs/Day Years [...] PM EDT documented as of this encounter Last Filed Vital Signs Vital Sign Reading Time Taken Comments Blood Pressure 112/74 10/29/2024 10:20 AM EST Pulse 72 10/29/2024 10:20 AM EST Temperature 36.8 ??C (98.3 ??F) 10/29/2024 10:[address] Respiratory Rate - - Oxygen Saturation 99% 10/29/2024 10:20 AM EST Inhaled Oxygen Concentration - - Weight 83.5 kg (184 lb) 10/29/2024 10:20 AM EST Height 142.2 cm (4' 8 ) 10/29/2024 10:20 AM EST Body Mass Index 41.25 10/29/2024 10:20 AM EST documented in this encounter Progress Notes * JANAK Longoria - 10/29/2024 10:32 AM EST Assessment & Plan Deyanira was seen today for foot pain. Diagnoses and all orders for this visit: Right foot injury, initial encounter - XR Foot 3+ views-Right; Future - XR Foot 3+ views-Right MDM I independently reviewed the (3 View right foot ) Xray images via the electronic system and my reading is as follows: No acute fractures Patient with foot pain as noted. X-ray shows no fracture. Will treat as an foot sprain. Rest, ice, compression and elevation discussed. Was given an crutches and instructed to continue to be nonweightbearing. May transition to some weightbearing as tolerable in 1 week. Analgesics as needed. Discussed the rare possibility of an occult fracture not showing up on initial x-rays. Recommend ortho consult if no improvements in 1-2 weeks. All questions answered prior to discharge. No LOS data to display Communication barriers and lifestyle preferences were addressed with the Patient and/or family . The care plan including medications and self-management goals were reviewed to the best of the Patientand/or family's ability. All questions and concerns were answered. Patient and/or family verbalizedunderstanding of the plan of care. Subjective Deyanira Millan is a 34 y.o. female HPI Chief Complaint: foot pain Location: right dorsal midfoot pain Duration: this morning Context: s/p fell and rolled ankle; inversion injury Severity: moderate Other Pertinent History: 34-year-old female injured her right foot while at her cardiology appointment this morning where she is being evaluated for POTS. She states that she got up too quickly, felt lightheaded and fell twisting her right foot. This was witnessed with no head injury or LOC. She states that the pain is mostly on the navicular midfoot. Pain is worse with weightbearing and palpation to the area. Patient is able to walk with discomfort despite the pain No numbness, tingling, or weakness. I have reviewed the patients medications, allergies, past medical history, social history and family history as documented. 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 Formatting of this note might be different from the origi Other insomnia 02/24/2024 S/P gastric bypass 02/24/2024 S/P gastric sleeve procedure 02/24/2024 S/P repair of PDA 04/28/2024 Past Surgical History: Procedure Laterality Date SECTION CHOLECYSTECTOMY LACRIMAL DUCT PROBING PATENT DUCTUS ARTERIOUS LIGATION TONSILLECTOMY & ADENOIDECTOMY TYMPANOSTOMY TUBE PLACEMENT Social History Tobacco Use Smoking status: Never Smokeless tobacco: Never Vaping Use Vaping status: Never Used Substance Use Topics Alcohol use: Yes Comment: rarely Drug use: Yes Types: Marijuana Family History Family history unknown: Yes Review of Systems All other systems reviewed and are negative except where documented Objective Vitals: 10/29/24 1020 BP: 112/74 Pulse: 72 Temp: 98.3 ??F (36.8 ??C) SpO2: 99% Weight: 83.5 kg (184 lb) Height: 1.422 m (4' 8 ) Vital signs reviewed. Physical Exam Constitutional: Well-appearing, in no apparent respiratory distress. Does not appear toxic Eyes: Conjunctivae Clear, No scleral icterus. Skin: Normal for age and race, grossly normal temperature and turgor. No acute rash. Neurologic: Alert and appropriate, no apparent acute deficits. Equal strength in all four extremities. Antalgic gait secondary to pain Psychiatric: Mood and manner are appropriate. Grooming and personal hygiene are appropriate. Ankle exam RIGHT: No lateral tenderness. No Medial tenderness. Skin intact. No gino deformity. No PROX fibular tenderness. No 5th MTT. 2+DPs. CR< 2 sec. Neg anterior draw. [place] test NEG. No LAC. Moves toes well. Full range of motion. No major ligamental instability. Foot exam right: + Palpable tenderness over the dorsal navicular and midfoot. Skin intact. No soft tissue swelling. No gino deformity. Sensory normal; Motor normal; CR<2 sec; DP/PT pulses intact. Results for orders placed or performed in visit on 09/07/24 ECG 12 lead Collection Time: 09/07/24 9:16 AM Result Value Ref Range Ventricular rate 84 BPM Atrial rate 84 BPM P-R interval 120 ms QRS duration 78 ms Q-T interval 364 ms QTC calculation (Bazett) 430 ms P axis 43 degrees R axis 73 degrees T axis 2 degrees JANAK Schmitt 10/29/24 1:59 PM documented in this encounter Plan of Treatment Upcoming Encounters Date Type Department Care Team (Late st Contact Info) Description 11/24/2024 11:00 AM EST Office Visit [address] [place] [phone] Radha Martel PA-C [address] [place] [address] 11/25/2024 8:00 AM EST Office Visit [facility] Dermatology [address] [place] [phone] Radha Martel PA-C [address] [place] [address] Radu Aleman MD [address] [place] [address] 11/30/2024 8:45 AM EST Appointment [facility] Department of Cardiology [place] [address] [place] [phone] Antonio Puente MD [address] [place] [address] 12/14/2024 8:30 AM EDT Office Visit [facility] Department of Cardiology [place] [address] [place] [phone] Antonio Puente MD [address] [place] [address] 02/10/2025 11:40 AM EDT Office Visit [facility] Department Of Hematology/Oncology [place] [address] [place] [address] Jhoana Wilkins MD [address] [facility] [address] [place] [address] documented as of this encounter Procedures Procedure Name Priority Date/Time Associated Diagnosis Comments XR FOOT 3+ VIEWS-RIGHT STAT 10/29/2024 11:30 AM EST Right foot injury, initial encounter documented in this encounter Results * XR Foot 3+ views-Right (10/29/2024 11:30 AM EST) Anatomical Region Laterality Modality Foot Right Computed Radiogr aphy 10/29/2024 11:3 0 AM EST 10/29/2024 11:30 AM EST Impressions 10/29/2024 12:28 PM EST Normal right foot. Electronically signed by: ??Jassi Boone MD ??10/29/2024 12:28 PM EST RP Thank you for referring your patient to us, Jassi Boone MD [phone] (Electronically Signed - 10/29/2024 12:28) Copy: PATIENT [...] Boone MD 10/29/2024 12:28 PM EST RPWorkstation: [id number] Thank you for referring your patient to us, Jassi Boone MD [phone] (Electronically Signed - 10/29/2024 12:28) Copy: PATIENT , JANAK Longoria IMPardeep DIAGNOSTIC IMAGI NG ORDERABLES documented in this encounter Visit Diagnoses Diagnosis Right foot injury, initial encounter- Primary documented in this encounter Care Teams Fixed Route Bus Operator Relationship Specialty Start Date End Date Radha Martel PA-C [address] [place] [address] PCP - General Internal Medicine 02/24/24 Vinod Robles MD [address] [place] [address] Primary Supervisor [employer] Cardiovascular Disease 09/02/24 documented as of this encounter
--- OUTSIDE RECORDS SUMMARY | 2024-11-10 08:32 | XMS_ITS | Encounter Summary ---
Author Organization [facility] Address [address] [place] [address] Care Team Providers Care Manager Linux Name Role Phone Radha Martel PA-C Primary Care Provi mckenna Vinod Robles MD Unavailable Encounter Details Date Type Department Care Team (Late st Contact Info) Description 03/12/2024 Scanned Document [facility] Physicians Department Of Hematology/Oncology [place] [address] [place] [phone] Jhoana Wilkins MD [address] [facility] [address] [place], [place] [phone] Social History Tobacco Use Types Packs/Day Years [...] Description 11/24/2024 11:00 AM EST Office Visit [address] [place] [phone] Radha Martel PA-C [address] [place] [address] 11/25/2024 8:00 AM EST Office Visit [facility] Dermatology [address] [place] [phone] Radha Martel PA-C [address] [place] [address] Radu Aleman MD [address] [place], [place] [address] 11/30/2024 8:45 AM EST Appointment [facility] Department of Cardiology [place] [address] [place] [address] Antonio Puente MD [address] [place] [address] 12/14/2024 8:30 AM EDT Office Visit [facility] Department of Cardiology [place] [address] [place] [phone] Antonio Puente MD [address] [place] [address] 02/10/2025 11:40 AM EDT Office Visit [facility] Department Of Hematology/Oncology [place] [address] [place] [phone] Jhoana Wilkins MD [address] [place], [place] [address] documented as of this encounter Procedures Procedure Name Priority Date/Time Associated Diagnosis Comments LAB RESULT 03/12/2024 4:09 PM EDT documented in this encounter Results * LAB RESULT (03/12/2024 4:09 PM EDT) Jhoana Wilkins MD HX AMB PROCEDURES documented in this encounter Visit Diagnoses Not on filedocumented in this encounter Care Teams Manager Linux Relationship Specialty Start Date End Date Radah Martel PA-C [address] [place] [address] PCP - General Internal Medicine 02/24/24 Vinod Robles MD 1 [place] [address] Primary Cupola Tapper Cardiovascular Disease 09/02/24 documented as of this encounter
--- OUTSIDE RECORDS SUMMARY | 2024-11-10 08:32 | XMS_ITS | Encounter Summary ---
Author Organization [facility] Address [address] [place] [address] Care Team Providers Care Social Science Analyst Name Role Phone Radha Martel PA-C Primary Care Provi mckenna Vinod Robles MD Unavailable Encounter Details Date Type Department Care Team (Late st Contact Info) Description 10/29/2024 Scanned Document [address] [place] [phone] Provider, Generic Social History Tobacco Use [...] Description 11/24/2024 11:00 AM EST Office Visit [address] [phone] Radha Martel PA-C [address] [place] [phone] 11/25/2024 8:00 AM EST Office Visit [address] [place] [address] Radha Martel PA-C [address] [place] [address] Radu Aleman MD [address] [place], [place] [phone] 11/30/2024 8:45 AM EST Appointment [facility] Department of Cardiology [place] [address] [place] [phone] Antonio Puente MD [address] [place] [address] 12/14/2024 8:30 AM EDT Office Visit [facility] Department of Cardiology [place] [address] [place] [phone] Antonio Puente MD [address] [place] [address] 02/10/2025 11:40 AM EDT Office Visit [facility] Department Of Hematology/Oncology [place] [address] [place] [phone] Jhoana Wilkins MD [address] [place], [place] [phone] documented as of this encounter Visit Diagnoses Not on filedocumented in this encounter Care Teams Social Science Analyst Relationship Specialty Start Date End Date Radha Martel PA-C [address] [place] [address] PCP - General Internal Medicine 02/24/24 Vinod Robles MD [address] [place] [address] Primary Credit Negotiator Cardiovascular Disease 09/02/24 documented as of this encounter
--- OUTSIDE RECORDS SUMMARY | 2024-11-10 08:32 | XMS_ITS | Encounter Summary ---
Author Organization Formerly [facility] Address [address] [place] [address] Care Team Providers Care Investor Relations Specialist Name Role Phone Radha Martel PA-C Primary Care Provi mckenna Vinod Robles MD Unavailable [phone] Reason for Referral * Cardiovascular Test (Routine) - Pending Review Specialty Diagnoses / Procedures Referred By Contac t Referred To Contact Diagnoses Heart palpitations Procedures Cardiac Event/Loop Monitor Antonio Puente MD [address] [place] [address] Referral ID Status Reason Start Date Expiration Date V isits Requested Visits Authorized [id number] Pending Review 10/29/2024 10/30/2025 1 1 * Cardiovascular Test (Routine) - Pending Review Specialty Diagnoses / Procedures Referred By Contac t Referred To Contact Diagnoses Heart palpitations S/P repair of PDA Procedures Echocardiogram (TTE) Comprehensive (Contrast PRN) Antonio Puente MD [address] [place], [place] [address] Referral ID Status Reason Start Date Expiration Date V isits Requested Visits Authorized [id number] Pending Review 10/29/2024 10/30/2025 1 1 Reason for Visit * Cardiology (Routine) - Closed Specialty Diagnoses / Procedures Referred By Contact Referred To Contact Cardiovascular Disease / Cardiology Diagnoses S/P repair of PDA Radha Martel PA-C [address] [place] [address] [facility] [id number] [place] [address] Referral ID Status Reason Start Date Expiration Date V isits Requested Visits Authorized [id number] Closed Consult 09/18/2024 09/19/2025 1 1 Encounter Details Date Type Department Care Team (Late st Contact Info) Description 10/29/2024 8:45 AM EST Office Visit [facility] Department of Cardiology [place] [address] [place] [address] Antonio Puente MD [address] [place] [address] Heart palpitations (Primary Dx); S/P repair of PDA; Dizziness and giddiness; Morbid obesity (HCC); Syncope and collapse Social History Tobacco Use Types Packs/Day Years [...] Sign Reading Time Taken Comments Blood Pressure 110/82 10/29/2024 8:41 AM EST Pulse - - Temperature - - Respiratory Rate - - Oxygen Saturation - - Inhaled Oxygen Concentration - - Weight 83.5 kg (184 lb) 10/29/2024 8:41 AM EST Height 142.2 cm (4' 8 ) 10/29/2024 8:41 AM EST Body Mass Index 41.25 10/29/2024 8:41 AM EST documented in this encounter Progress Notes * Antonio Puente MD - 10/29/2024 8:59 AM EST Images from the original note were not included. Patient: Deyanira Millan Date of : 1990 Age: 34 y.o. Gender: female Antonio Puente MD Primary: Radha Martel PA-C Referring Provider: Radha Martel* Reason For Visit: Palpitations Assessment & Plan Diagnoses and all orders for this visit: Heart palpitations Assessment & Plan: We will do an epicardium to define substrate rule out valvulopathy. We will do a event monitor as patient has had syncope. We want to rule out malignant ventricular dysrhythmia. Orders: - ECG 12 lead - Echocardiogram (TTE) Comprehensive (Contrast PRN); Future - Cardiac Event/Loop Monitor; Future S/P repair of PDA Assessment & Plan: We are going to do an echocardiogram to define substrate rule out valvulopathy. Orders: - ECG 12 lead - Echocardiogram (TTE) Comprehensive (Contrast PRN); Future Dizziness and giddiness - ECG 12 lead Morbid obesity (HCC) Assessment & Plan: Weight loss is indicated. Syncope and collapse Assessment & Plan: Patient went down her waiting room. Patient was sent to go urgent care to be evaluated. She has right ankle pain. We do an echocardiogram to define substrate rule out valvulopathy and determine risk of malignant ventricular arrhythmia. Thank you very much for consultation. A copy this note was sent to the referring provider. Subjective History of Present Illness: This is a 34-year-old woman who presents for initial consultation. The patient does have history oflightheadedness dizziness and palpitations at nighttime. Patient has had prior concern for posturalorthostatic tachycardia syndrome. Patient has had Holter monitor and event monitor in the past. Thestudies have been unremarkable. 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 Echocardiogram had been ordered. Has not been obtained. She does have a history of repair of a PDA. Fast heart beats come on fast and last for about a minute.These beats are not necessarily associated with the lightheadedness.Symptoms ongoing for 6 months. Medications: Current Outpatient Medications Medication Sig Dispense Refill albuterol (PROVENTIL HFA; VENTOLIN HFA) 108 (90 Base) MCG/ACT inhaler Inhale 2 puffs 4 times daily (every 6 hours) as needed for wheezing. Armodafinil (NUVIGIL) 250 MG tablet Take 1 tablet (250 mg total) by mouth daily. azithromycin (ZITHROMAX) 500 MG tablet 1 tablet every Saturday, Saturday and Saturday 39 tablet 3 cariprazine (Vraylar) 1.5 MG caspule Take 1 tablet by mouth daily. colestipol (COLESTID) 1 g tablet TAKE 2 TABLETS (2 G TOTAL) BY MOUTH DAILY. eszopiclone (LUNESTA) 1 MG tablet Take 1 tablet (1 mg total) by mouth nightly. fluticasone (FloNASE) 50 mcg/spray nasal spray 2 sprays per nostril daily 3 each 3 hyoscyamine (ANASPAZ) 0.125 MG Tablet Dispersible dispersible tablet DISSOLVE 2 TABLETS IN MOUTH EVERY 6 HOURS NEEDED FOR ABDOMINAL PAIN lamoTRIgine (LaMICtal) 200 MG tablet Take 1 tablet (200 mg total) by mouth daily. melatonin 5 MG Tab tablet Take 1 tablet (5 mg total) by mouth nightly. Mometasone Furoate Powder Compound mometasone 1mg capsule in sinus rinse twice daily pregabalin (LYRICA) 75 MG capsule Take 1 capsule (75 mg total) by mouth 2 (two) times a day. 60 capsule 1 proCHLORPERAZINE (COMPAZINE) 10 MG tablet TAKE 1 TABLET ORALLY EVERY 8 HOURS NEEDED FOR NAUSEA AND VOMITING FOR 30 DAYS QUEtiapine (SEROquel) 100 MG tablet Take 1 tablet (100 mg total) by mouth nightly. Ubrelvy 100 MG tablet TAKE 1/2 TO 1 TABLET BY MOUTH NEEDED FOR MIGRAINE. MAY REPEAT IN 2 HOURS. MAY TAKE WITH IBUPROFEN valACYclovir (VALTREX) 500 MG tablet Take 1 tablet (500 mg total) by mouth daily. Xifaxan 550 MG tablet TAKE 1 TABLET BY MOUTH 3 TIMES A DAY FOR 14 DAYS. famotidine (PEPCID) 20 MG tablet Take 1 tablet (20 mg total) by mouth 2 (two) times a day. 60 tablet 5 No current facility-administered medications for this visit. Past Medical/Surgical History: Past Medical History: Diagnosis Date Anxiety Asthma [...] LIGATION TONSILLECTOMY & ADENOIDECTOMY TYMPANOSTOMY TUBE PLACEMENT Detailed history: Problem List: 2024-10: Heart palpitations 2024-10: Syncope and collapse 2024-04: S/P repair of PDA 2024-03: Fatigue 2024-03: B12 deficiency 2024-02: Anemia 2024-02: Morbid obesity (HCC) 2024-02: S/P gastric bypass 2024-02: Endometriosis 2024-02: Daytime sleepiness 2024-02: History of tobacco use 2024-02: S/P gastric sleeve procedure 2024-02: Elevated sed rate 2024-02: Bilateral hearing loss 2024-02: Other insomnia 2024-02: Hypogammaglobulinemia 2023-04: Attention deficit disorder 2023-04: Bipolar 2 disorder, major depressive episode (HCC) 2023-03: Cholecystitis 2023-03: Chronic pelvic pain in female 2023-03: Nondependent opioid abuse in remission ([facility]) sober x 7 years sober x 7 years sober x 7 years 2020-01: Recurrent sinus infections 2019-11: Fibromyalgia 2019-08: Generalized anxiety disorder 2017-01: ASCUS with positive high risk HPV cervical ASCUS HR HPV 05/2015 ASCUS HR HPV 05/2015 ASCUS HR HPV 05/2015: Herpes simplex of female genitalia 2014-07: Fe deficiency anemia 2014-07: Fatty liver disease, nonalcoholic 2014-07: Focal nodular hyperplasia of liver 2013-08: Migraines 2012-02: Asthma 2012-02: Perennial allergic rhinitis Social History: Social History Tobacco Use Smoking status: Never Smokeless tobacco: Never Vaping Use Vaping status: Never Used Substance Use Topics Alcohol use: Yes Comment: rarely Drug use: Yes Types: Marijuana Marital Status: Family History: Family History Family history unknown: Yes Review of Systems: Review of Systems Constitutional: Negative for activity change, appetite change, chills, diaphoresis, fatigue, fever and unexpected weight change. HENT: Negative for congestion, dental problem, drooling, ear discharge, ear pain, facial swelling, hearing loss, mouth sores, nosebleeds, postnasal drip, rhinorrhea, sinus pressure and sinus pain. Eyes: Negative for photophobia, pain, discharge, redness, itching and visual disturbance. Respiratory: Negative for apnea, cough, choking, chest tightness, shortness of breath and wheezing. Cardiovascular: Positive for palpitations. Negative for chest pain and leg swelling. Gastrointestinal: Negative for abdominal distention, abdominal pain, anal bleeding, blood in stool,constipation, diarrhea, nausea, rectal pain and vomiting. Genitourinary: Negative for decreased urine volume, difficulty urinating, dysuria, enuresis, flank pain, genital sores and hematuria. Musculoskeletal: Negative for arthralgias, back pain, gait problem, joint swelling, myalgias, neck pain and neck stiffness. Skin: Negative for color change, pallor, rash and wound. Neurological: Positive for light-headedness. Negative for tremors, seizures, syncope, speech difficulty, weakness, numbness and headaches. Hematological: Negative for adenopathy. Does not bruise/bleed easily. Psychiatric/Behavioral: Negative for agitation, behavioral problems, confusion, decreased concentration, dysphoric mood, hallucinations, self-injury, sleep disturbance and suicidal ideas. The patientis not nervous/anxious and is not hyperactive. Objective Vitals: 10/29/24 0841 BP: 110/82 BP Location: Left arm Patient Position: Sitting Cuff Size: Large Weight: 83.5 kg (184 lb) Height: 1.422 m (4' 8 ) Body mass index is 41.25 kg/m??. Most Recent Weight: 184 lbs Today's Weight: 184 lbs Weight Change: 0lbs Physical Exam: Physical Exam Constitutional: General: She is not in acute distress. Appearance: She is obese. She is not ill-appearing or toxic-appearing. HENT: Head: Normocephalic and atraumatic. Nose: Nose normal. No congestion or rhinorrhea. Mouth/Throat: Pharynx: Oropharynx is clear. No oropharyngeal exudate or posterior oropharyngeal erythema. Eyes: General: No scleral icterus. Right eye: No discharge. Left eye: No discharge. Extraocular Movements: Extraocular movements intact. Conjunctiva/sclera: Conjunctivae normal. Pupils: Pupils are equal, round, and reactive to light. Neck: Vascular: No carotid bruit. Cardiovascular: Rate and Rhythm: Normal rate and regular rhythm. No extrasystoles are present. Chest Wall: PMI is not displaced. No thrill. Pulses: Normal pulses. Carotid pulses are 2+ on the right side and 2+ on the left side. Radial pulses are 2+ on the right side and 2+ on the left side. Dorsalis pedis pulses are 2+ on the right side and 2+ on the left side. Posterior tibial pulses are 2+ on the right side and 2+ on the left side. Heart sounds: Normal heart sounds. No murmur heard. No friction rub. No gallop. No S3 or S4 sounds. Pulmonary: Effort: Pulmonary effort is normal. No respiratory distress. Breath sounds: Normal breath sounds. No stridor. No wheezing, rhonchi or rales. Chest: Chest wall: No tenderness. Abdominal: General: Abdomen is flat. Bowel sounds are normal. There is no distension. Palpations: Abdomen is soft. There is no mass. Tenderness: There is no abdominal tenderness. There is no right CVA tenderness, left CVA tenderness, guarding or rebound. Hernia: No hernia is present. Musculoskeletal: General: No swelling, tenderness, deformity or signs of injury. Cervical back: Normal range of motion and neck supple. No rigidity or tenderness. Right lower leg: No edema. Left lower leg: No edema. Lymphadenopathy: Cervical: No cervical adenopathy. Skin: General: Skin is warm and dry. Coloration: Skin is not jaundiced or pale. Findings: No bruising, erythema, lesion or rash. Neurological: General: No focal deficit present. Mental Status: She is alert and oriented to person, place, and time. Mental status is at baseline. Cranial Nerves: No cranial nerve deficit. Sensory: No sensory deficit. Motor: No weakness. Coordination: Coordination normal. Gait: Gait normal. Psychiatric: Mood and Affect: Mood normal. Behavior: Behavior normal. Thought Content: Thought content normal. Judgment: Judgment normal. Electrocardiogram: EKG: Sinus Rhythm WITHIN NORMAL LIMITS. BNP: No results found for: PROBNPNTE Lipids: Lab Results Component Value Date CHOL 172 05/19/2024 Lab Results Component Value Date HDL 71 05/19/2024 No results found for: LDLD No results found for: ESTLDL Lab Results Component Value Date LDLCHOL 86 05/19/2024 Lab Results Component Value Date TRIG 67 05/19/2024 No results found for: LIPOPROT Chemistries: Lab Results Component Value Date CREAT 0.67 05/19/2024 CREAT 0.65 04/29/2024 CREAT 0.7 04/15/2021 Lab Results Component Value Date GLUC 78 05/19/2024 CALCIUM 9.5 05/19/2024 NA 141 05/19/2024 K 3.9 05/19/2024 CO2 29 05/19/2024 CL 101 05/19/2024 BUN 7 05/19/2024 Lab Results Component Value Date WBC 10.42 08/18/2024 HGB 13.3 08/18/2024 HCT 41.2 08/18/2024 MCV 98.1 (H) 08/18/2024 PLT 311.0 08/18/2024 No results found for: HGBA1C Lab Results Component Value Date TSH 1.32 05/19/2024 Lab Results Component Value Date ALT 21 05/19/2024 AST 16 05/19/2024 Testing: No specialty comments available. Antonio Puente MD 10/30/24 documented in this encounter Miscellaneous Notes * Assessment & Plan Note - Antnoio Puente MD - 10/30/2024 4:45 PM EST Associated Problem(s): Syncope and collapse Patient went down her waiting room. Patient was sent to go urgent care to be evaluated. She has right ankle pain. We do an echocardiogram to define substrate rule out valvulopathy and determine risk of malignant ventricular arrhythmia. * Assessment & Plan Note - Antonio Puente MD - 10/30/2024 4:44 PM EST Associated Problem(s): Heart palpitations We will do an echocardiogram to define substrate rule out valvulopathy. We will do a event monitor as patient has had syncope. We want to rule out malignant ventricular dysrhythmia. * Assessment & Plan Note - Antonio Puente MD - 10/30/2024 4:43 PM EST Associated Problem(s): Morbid obesity (HCC) Weight loss is indicated. * Assessment & Plan Note - Antonio Puente MD - 10/30/2024 4:43 PM EST Associated Problem(s): S/P repair of PDA We are going to do an echocardiogram to define substrate rule out valvulopathy. documented in this encounter Plan of Treatment Upcoming Encounters Date Type Department Care Team (Late st Contact Info) Description 11/24/2024 11:00 AM EST Office Visit [facility] [address] [place] [phone] Radha Martel PA-C [address] [place] [address] 11/25/2024 8:00 AM EST Office [facility] Dermatology [address] [place] [phone] Radha Martel PA-C [address] [place] [address] Radu Aleman MD [address] [facility] [address] [place], [place] [address] 11/30/2024 8:45 AM EST Appointment [facility] Department of Cardiology [place] [address] [place] [phone] Antonio Puente MD [address] [facility] [address] [place], [place] [id number] 12/14/2024 8:30 AM EDT Office Visit [facility] Department of Cardiology [place] [address] [place] [phone] Antonio Puente MD [address] [facility] [address] [place], [place] [address] 02/10/2025 11:40 AM EDT Office Visit [facility] Department Of Hematology/Oncology [place] [address] [place] [phone] Jhoana Wilkins MD [address] [place] [address] Pending Results Name Type Priority Associated Diagnoses Date /Time Cardiac Event/Loop Monitor Cardiac Services Routine Heart palpitations 10/29/2024 9:32 AM EST Scheduled Orders Name Type Priority Associated Diagnoses Orde r Schedule Echocardiogram (TTE) Comprehensive (Contrast PRN) Echocardiography Routine Heart palpitations S/P repair of PDA Expected: 10/29/2024, Expires: 10/29/2025 Cardiac Event/Loop Monitor Cardiac Services Routine Heart palpitations Expected: 10/29/2024, Expires: 10/29/2025 documented as of this encounter Procedures Procedure Name Priority Date/Time Associated Diagnosis Comments ECG 12-LEAD Routine 10/29/2024 8:51 AM EST Heart palpitations S/P repair of PDA Dizziness and giddiness documented in this encounter Results * ECG 12 lead (10/29/2024 8:51 AM EST) 10/29/2024 8:51 AM EST Antonio Puente MD ECG ORDERABLES documented in this encounter Visit Diagnoses Diagnosis Heart palpitations- Primary Palpitations S/P repair of PDA Other postprocedural status Dizziness and giddiness Morbid obesity (HCC) Morbid obesity Syncope and collapse documented in this encounter Care Teams Investor Relations Specialist Relationship Specialty Start Date End Date Radha Martel PA-C [address] [place] [address] PCP - General Internal Medicine 02/24/24 Vinod Robles MD [address] [place] [id number] Primary Supervisor Housecleaner Cardiovascular Disease 09/02/24 documented as of this encounter
[2024-11-10 08:33] VITALS: BP 118/74; BMI 41.0
--- NOTE | 2024-11-10 08:33 | A.OFFVIS_ITS ---
Vital Signs 11/10/24 08:33 Height 4 ft 8 in Weight 183 lb BMI 41.0 BP 118/74 Blood Pressure Location Rt brachial Position Sitting Intake Visit Reasons: BOTOX Intake Note: Patient here for botox Allergies clindamycin [CLINDAMYCIN] Allergy (Severe, Verified 11/10/24 08:34) ANAPHALAXIS amoxicillin Allergy (Intermediate, Verified 11/10/24 08:34) Swelling venlafaxine [From Effexor] Allergy (Mild, Verified 11/10/24 08:34) Unknown adhesive tape Allergy (Unknown, Verified 11/10/24 08:34) CHANGES COLOR OF SKIN PERMANENTLY lamotrigine [From Lamictal] Adverse Reaction (Verified 11/10/24 08:34) Unknown Clindamycin HCl Allergy (Unknown, Uncoded 11/10/24 08:34) unknown Medication List - Last Reconciled 11/10/24 by Fabiana Pinto MD armodafinil 250 mg PO QAM 30 days baclofen 10 mg (2 x 5 mg) PO BID PRN 30 days cariprazine (Vraylar) 1.5 mg PO DAILY cholecalciferol (vitamin D3) 125 mcg PO QWEEK 12 weeks dicyclomine 10 mg PO QID eszopiclone (Lunesta) 3 mg PO BEDTIME 30 days etonogestrel (Nexplanon) subdermal famotidine 20 mg PO BID fluticasone furoate 27.5 mcg/actuation 1 spray intranasal DAILY lamotrigine 50 mg PO DAILY [id number]-rdbekqj 36,000-114,000- 180,000 unit (Creon) 1 cap PO BID melatonin 5 mg PO BEDTIME PRN 90 days onabotulinumtoxinA (Botox) 200 units IM ONCE 12 weeks prochlorperazine maleate (Compazine) 10 mg PO Q8H PRN 30 days quetiapine 100 mg PO DAILY ubrogepant (Ubrelvy) 50 - 100 mg (0.5 - 1 x 100 mg) PO ONCE PRN 30 days valacyclovir 500 mg PO DAILY HPI Comments Details: ? 34y/o female comes for treatment of migraines with botox. ??? Most frequent reported adverse reactions following injection of botox for chronic migraine include neck pain (9%), headache(5%), eyelid ptosis(4%), migraine(4%), muscular weakness(4%), musculuskeletal stiffness(4%), bronchitis(3%), injection site pain (3%), musculoskeletal pain(3%), myalgia(3%), facial paresis(2%), HTN(2%) and muscle spasms(2%) were discussed in detail. ??? Botulinum toxin typeA 200units Lot no [id number] expiration December 2026 was diluted with 4 cc of normal saline . ??? Muscles injected- ??? Frontalis 4 sites ??? Procerus 1 site ??? Hotel Reservationist- 2 sites ??? Temporalis- 8 sites ??? Occipitalis- 6 sites ??? Cervical paraspinals- 4 sites ??? Trapezius- 6 sites- 10 units each ??? 5 units each in 31 site ??? Total use- 185units ??? Discarded-15units PFSH Medical History Chronic migraine without aura, intractable, without status migrainosus Chronic migraine without aura [place] (hard of hearing) Bipolar depression Insomnia H/O migraine Asthma Fibromyalgia Anxiety Surgical History Hx of cholecystectomy Hx of eye surgery Hx of eye surgery Hx of eye surgery Bariatric surgery status Family History Father Substance use disorder Mental health disorder Mother Substance use disorder Mental health disorder Social History Housing: Apartment Alcohol intake: current Alcohol intake frequency: holidays/special occasions only Patient Tobacco Use Status: Former Tobacco user e-Cigarette/Vaping Use: Currently Using service: No Current occupational status: employed Cognitive needs: No Hearing needs: No Vision needs: Yes Physical Exam Vital Signs: Last Vital Signs BP 118/74 11/10/24 08:33 BMI result Body Mass Index 41.0 Const General: cooperative and no acute distress Orientation/consciousness: patient oriented x3 HEENT Head: Yes normocephalic Resp Effort & Inspection: normal respiratory effort and able to speak in complete sentences Neuro General: patient oriented x3, gait normal and CN's II-XI intact bilaterally Cognition (Neuro): normal cognition Motor exam (neuro): 5/5 motor strength present throughout Office Procedures Botulinum toxin Injection 70172 - Migraine Procedure code (CPT) selection complete Office Meds onabotulinumtoxinA 200 unit solution for injection Performing Provider: Fabiana Pinto MD Performing Location: [facility] Administered by: Fabiana Pinto MD on 11/10/24 08:51 Dose Route Admin Location Dispensed Lot Number Expiration Date [facility] Hemodialysis Rn 185 unit IM 200 units [id number] ALLERGAN/BOTOX Comments: see HPI Assessment & Plan Assessment & Plan (1) Chronic migraine without aura, intractable, without status migrainosus: Code(s): G43.719 - Chronic migraine without aura, intractable, without status migrainosus Category: Medical Plan Patient tolerated the procedure well SHe will call with any side effects Orders: Orders AMB Botulinum toxin Injection Today G43.719 - Chronic migraine without aura, intractable, without status migrainosus Medications: New onabotulinumtoxinA 200 units IM ONCE 1 ea 0RF migraine G43.719 - Chronic migraine without aura, intractable, without status migrainosus Coding Level of Care Code Est Pt Level 1 (14974) Diagnoses Chronic migraine without aura, intractable, without status migrainosus G43.719 CPT Codes Botox Injection - Botox 3: 70834 - Migraine ([id number])
--- OUTSIDE RECORDS SUMMARY | 2024-11-10 08:33 | XMS_ITS | Clinical Summary ---
Author Organization [facility] Address [address] [place] [address] Care Team Providers Care Dish Room Worker Name Role Phone Radha Martel Primary Care Provider [phone] Allergies Active Allergy Reactions Criticality Noted Date Comments Adhesive Tape Rash Medium 07/26/2021 Clindamycin Anaphylaxis High 07/26/2021 Venlafaxine Other (See Comments) 06/01/2020 Suicidal ideation Medications Medication Sig Dispensed Refills Start Date End Date Status lamoTRIgine (LaMICtal) 25 MG tablet Take 4 tablets (100 mg total) by mouth daily. 0 01/24/2023 Active QUEtiapine (SEROquel) 50 MG tablet Take 2 tablets (100 mg total) by mouth every night at bedtime. 0 06/29/2022 Active Vraylar 1.5 MG capsule Take 1 capsule (1.5 mg total) by mouth daily. 0 02/28/2023 Active etonogestrel (NEXPLANON) 68 MG IMPL subcutaneous implant Inject 68 mg under the skin. 0 06/06/2015 Active Aimovig SOAJ INJECT 140 MG SUBCUTANEOUSLY ONCE FOR 30 DAYS 0 04/15/2023 Active Armodafinil 250 MG tablet 0 02/08/2024 Active valACYclovir (VALTREX) 500 MG tabletIndications: History of PCR DNA positive for HSV2 TAKE 1 TABLET BY MOUTH DAILY 90 tablet 3 04/30/2024 Active Active Problems Problem Noted Date Diagnosed Date Encounter for removal and reinsertion of Nexplan on 04/19/2023 Class 2 severe obesity due t o excess calories with serious comorbidity and body mass index (BMI) of 37.0 to 37.9 in adult 04/19/2023 Consultation for female sterilization 04/15/2023 History of PCR DNA positive for HSV2 04/15/2023 Bipolar 2 disorder, major depressive episode 07/2023 Attention deficit disorder 04/15/2023 Cholecystitis 04/02/2023 Nondependent opioid abuse in remission 3 Overview: sober x 7 years Chronic pelvic pain in female 03/08/2023 [place] 08/28/2022 Endometriosis 06/02/2020 Overview: Last Assessment & Plan: Patient requesting hysterectomy due to history of endometriosis diagnosed clinically. Symptoms are currently well controlled with Nexplanon in place. She is due for Nexplanon exchange and prefers not to continue with this medication as she would prefer hysterectomy. Today we discussed treatment options for endometriosis in detail including continuing hormonal medications such as the Nexplanon, and which her symptoms are well controlled versus hysterectomy with or without oophorectomy. The risks of hysterectomy with ovarian conservation include the risk that symptoms may return or worsen. The risks associated with hysterectomy with oophorectomy at such a young age include symptoms of menopause, increased risk of cardiovascular disease, osteoporosis, and all cause mortality. My recommendation is to continue with Nexplanon as her symptoms are well controlled with this medication. I did offer second opinion from another surgeon versus referral to [facility] Endometriosis clinic in [place]. She would like referral to the endometriosis clinic, which was placed today. All questions answered. 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 genitalia 08/05/2015 Fe deficiency anemia 08/04/2014 Focal nodular hyperplasia of liver 07/07/2014 Fatty liver disease, nonalcoholic 07/07/2014 Migraines 08/07/2013 Perennial allergic rhinitis 03/06/2012 Asthma 03/06/2012 Depression 10/23/2011 Overview: No meds curently patietn will self report if mood changes Has therapist Suggest Psyche consult at Hospital post delivery and perhaps medication started at that time Resolved Problems Problem Noted Date Diagnosed Date Resolved Date Bipolar 2 disorder 03/08/2023 3 Immunizations Name Administration Dates Next Due Influenza Trivalent (Fluzone /Afluria) 5.0mL Multi-dose Vial 08/06/2019,07/14/2012 Pneumococcal Polysaccharide PPSV23 06/02/2020 TB Skin Test (TST-PPD) 06/02/2020,06/02/2020 Tdap 03/22/2023,07/14/2012,09/19/2011 Family History Relation Name Status Comments Father doesn't know him Maternal Grandfather Maternal Grandmother Alive Mother Alive Paternal Grandfather doesn't know Paternal Grandmother doesn't know Sister Alive Social History Tobacco Use Types Packs/Day Years Used Date Smoking Tobacco: Every Day Nicotine Inhalation Passive Smoke Exposure: Current Smokeless Tobacco: Never Tobacco Cessation:Ready to Q uit: Not Asked; Counseling Given: Not Answered Alcohol Use Standard Drinks/Week Comments Not Currently 0 (1 standard drink = 0.6 oz pur e alcohol) rarely Sex and Gender Information Value Date Recorded Sex Assigned at Female 04/10/2023 10:05 PM EDT Gender Identity Female 04/15/2023 5:00 PM EDT Sexual Orientation Straight 04/15/2023 5: 00 PM EDT Job Start Date Occupation Industry Not on file Not on file Not on file Last Filed Vital Signs Vital Sign Reading Time Taken Comments Blood Pressure 113/80 02/13/2024 1:03 PM EDT Pulse 85 02/13/2024 1:03 PM EDT Temperature 36.9 ??C (98.4 ??F) 10/15/2023 10:[address] Respiratory Rate 16 02/13/2024 1:03 PM EDT Oxygen Saturation 97% 10/15/2023 10:46 AM EST Inhaled Oxygen Concentration - - Weight 79.8 kg (176 lb) 02/13/2024 1:03 PM EDT Height 142.2 cm (4' 8 ) 02/13/2024 1:03 PM EDT Body Mass Index 39.46 02/13/2024 1:03 PM EDT Plan of Treatment Health Maintenance Due Date Last Done Comments Hepatitis B Vaccines (1 of 3 - 3-dose series) 1990 Hepatitis C Screening 1990 COVID-19 Vaccine (#1) 1990 Depression Screening 2004 Cervical Cancer Screening (Pap Smear) 01/10/2013 Pneumococcal Vaccine (2 of 2 - PCV) 06/02/2021 06/02/2020 Preventative Health Evaluation 03/22/2024 03/22/2023 Tobacco Cessation Counseling 04/19/2024 04/19/2023, 04/15/2023 Influenza Vaccine (#1) 2024 08/06/2019, 2011 BMI Counseling 02/12/2025 02/13/2024, 09/06, 04/18/2023, Additional history exists DTap / Tdap / Td (4 - Td or Tdap) 03/22/2033 03/22/2023, 07/14/2012, 09/19/2011 RSV Ped < 20 months Aged Out No longe r eligible based on patient's age to complete this topic Advance Directives For more information, please contact: [phone] Latest Code Status on File Code Status Date Activated Date Inactivated Comments Full Code 04/02/2023 8:52 PM 04/03/2023 7:28 PM This code status was ascertained in the following way: discussion with patient . Code Status History Code Status Date Activated Date Inactivated Comments Full Code 04/02/2023 7:06 AM 04/02/2023 8:52 PM This code status was ascertained in the following way: discussion with patient . Care Teams Dish Room Worker Relationship Specialty Start Date End Date Radha Martel PA [address] [place] [address] PCP - General Physician Ribbon Lap Machine Tender 02/24/24
--- OUTSIDE RECORDS SUMMARY | 2024-11-10 08:33 | XMS_ITS | Encounter Summary ---
Author Organization [facility] Address [address] [place], [place] [id number] Care Team Providers Care Channeler Runner Name Role Phone Radha Martel PA-C Primary Care Provi mckenna Vinod Robles MD Unavailable Encounter Details Date Type Department Care Team (Late st Contact Info) Description 04/02/2024 Scanned Document [address] [phone] Radha Martel PA-C [address] [place] [address] Social History Tobacco Use Types Packs/Day Years [...] Description 11/24/2024 11:00 AM EST Office Visit [address] [phone] Radha Martel PA-C [address] [place], [place] [address] 11/25/2024 8:00 AM EST Office Visit [facility] [address] [place] [phone] Radha Martel PA-C [address] [place] [address] Radu Aleman MD [address] [place], [place] [address] 11/30/2024 8:45 AM EST Appointment [facility] Department of Cardiology [place] [address] [place] [phone] Antonio Puente MD [address] [place] [address] 12/14/2024 8:30 AM EDT Office Visit [facility] Department of Cardiology [place] [address] [place] [phone] Antonio Puente MD [address] [place] [address] 02/10/2025 11:40 AM EDT Office Visit [facility] Department Of Hematology/Oncology [place] [address] [place] [address] Jhoana Wilkins MD [address] [place], [place] [address] documented as of this encounter Visit Diagnoses Not on filedocumented in this encounter Care Teams Channeler Runner Relationship Specialty Start Date End Date Radha Martel PA-C [address] [place] [address] PCP - General Internal Medicine 02/24/24 Vinod Robles MD [address] [place] [address] Primary Cover Cutter Cardiovascular Disease 09/02/24 documented as of this encounter
--- OUTSIDE RECORDS SUMMARY | 2024-11-10 08:33 | XMS_ITS | Encounter Summary ---
Author Organization [facility] Address [address] [place] [address] Care Team Providers Care Mud Mixer Name Role Phone Radha Martel PA-C Primary Care Provi mckenna Vinod Robles MD Unavailable [phone] Encounter Details Date Type Department Care Team (Latest Contact Info) Description 10/29/2024 Travel Social History Tobacco Use Types Packs/Day Years [...] Description 11/24/2024 11:00 AM EST Office Visit [address] [phone] Radha Martel PA-C [address] [place] [address] 11/25/2024 8:00 AM EST Office Visit [facility] Dermatology [address] [place] [address] Radha Martel PA-C [address] [place] [address] Radu Aleman MD [address] [place] [address] 11/30/2024 8:45 AM EST Appointment [facility] Department of Cardiology [place] [address] [place] [phone] Antonio Peunte MD [address] [place] [address] 12/14/2024 8:30 AM EDT Office Visit [facility] Department of Cardiology [place] [address] [place] [phone] Antonio Puente MD [address] [place] [address] 02/10/2025 11:40 AM EDT Office Visit [facility] Department Of Hematology/Oncology [place] [address] [place] [phone] Jhoana Wilkins MD 300 [facility] [address] [place] [address] documented as of this encounter Visit Diagnoses Not on filedocumented in this encounter Care Teams Mud Mixer Relationship Specialty Start Date End Date Radha Martel PA-C [address] [place] [address] PCP - General Internal Medicine 02/24/24 Vinod Robles MD [address] [place] [address] Primary Delivery Representative Cardiovascular Disease 09/02/24 documented as of this encounter
--- OUTSIDE RECORDS SUMMARY | 2024-11-10 08:33 | XMS_ITS | Clinical Summary ---
Author Organization [facility] Address [address] [place] [address] Care Team Providers Care Chemist Organic Name Role Phone Radha Martel Primary Care Provider [phone] Allergies Active Allergy Reactions Criticality Noted Date Comments Adhesive Unknown 01/17/2020 tape Clindamycin Hcl Anaphylaxis High 10/23/2011 Tapentadol Rash High 08/04/2014 Venlafaxine Unknown 06/01/2020 Suicidal ideation Medications valACYclovir (VALTREX) 500 mg tablet Take 1 tablet by mouth daily. 1 Active triamcinolone (NASACORT) 55 mcg nasal inhaler U 2 SPRAYS IEN D 0 Active Mi-Acid Gas Relief,simethic on, 80 mg chewable tablet ANESTHESIOLOGY PHYSICIAN ONE T Q 6 H PRN 0 [...] Inch(es) In Eye(s) Every Evening 2 Active Family History Medical History Relation Name Comments [place] Cousin Relation Name Status Comments Cousin Other Father Alive Mother Alive Social History Tobacco Use Types [...] 10/31/2020 10:14 AM EST Plan of Treatment Health Maintenance Due Date Last Done Comments HIV Screening 1992 HPV and Pap Smear 1992 Hepatitis C Screening 1992 Varicella Vaccines (1 of 2 - 13+ 2-dose series) 01/10/2005 Hepatitis B Vaccines (1 of 3 - 19+ 3-dose series) 01/10/2011 Pneumococcal Vaccine: Pediat leola (0-5 Years) and At-Risk Patients (6-64 Years) (2 of 2 - PCV) 06/02/2021 06/02/2020 Cervical Cancer Screening 01/10/2024 Pap Smear 01/10/2024 01/09/2021 COVID-19 Vaccine ( - 2023- season) 2024 Influenza Vaccine (#1) 2024 08/06/2019, 2011 Alcohol/Substance Use Screening 10/07/2024 Depression Screening and Follow-Up 10/07/2024 Social Drivers of Health [place] ual Screening 10/07/2024 DTaP,Tdap,and Td Vaccines (4 - Td or Tdap) 03/22/2033 03/22/2023, 07/14/2012, 09/19/2011 RSV Vaccine (60+ years old a nd patients) (1 - 1-dose 75+ series) 01/10/2067 Insurance HSNO/FREE CARE Care Teams Chemist Organic Relationship Specialty Start Date End Date Radha Martel [address] [place] [address] PCP - General Internal Medicine 03/30/24
--- OUTSIDE RECORDS SUMMARY | 2024-11-10 08:33 | XMS_ITS | Encounter Summary ---
Author Organization [facility] Address [address] [place] [address] Care Team Providers Care Service Parts Driver Name Role Phone Radha Martel PA-C Primary Care Provi mckenna Vinod Robles MD Unavailable [phone] Encounter Details Date Type Department Care Team (Late st Contact Info) Description 10/30/2024 Orders Only [facility] Department Of Hematology/Oncology [place] [address] [place] [address] [facility] [address] [place] [phone] Jhoana Wilkins MD 300 [facility] [address] [place] [address] B12 deficiency (Primary Dx); Fe deficiency anemia; Anemia Social History Tobacco Use Types Packs/Day Years [...] PM EDT documented as of this encounter Progress Notes * Martha Llanes MA - 11/03/2024 10:54 AM EST I spoke with patient and gave information . documented in this encounter Plan of Treatment Upcoming Encounters Date Type Department Care Team (Late st Contact Info) Description 11/24/2024 11:00 AM EST Office Visit [facility] [address] [facility] [address] [place] [address] Radha Martel PA-C [address] [place] [address] 11/25/2024 8:00 AM EST Office Visit [facility] Dermatology [address] [place] [address] Radha Martel PA-C [address] [place] [address] Radu Aleman MD [address] [facility] [address] [place], [place] [address] 11/30/2024 8:45 AM EST Appointment [facility] Department of Cardiology [place] [address] [place] [phone] Antonio Puente MD [address] [place], [place] [address] 12/14/2024 8:30 AM EDT Office Visit [facility] Department of Cardiology [place] [address] [place] [phone] Antonio Puente MD [address] [place] [address] 02/10/2025 11:40 AM EDT Office Visit [facility] Department Of Hematology/Oncology [place] [address] [place] [phone] Jhoana Wilkins MD 300 [facility] [address] [place] [address] documented as of this encounter Procedures Procedure Name Priority Date/Time Associated Diagnosis Comments IRON AND TOTAL IRON BINDING CAPACITY Routine 11/02/2024 10:45 AM EST B12 deficiency Fe deficiency anemia Anemia VITAMIN B12 AND FOLATE Routine 11/02/2024 10:45 AM EST B12 deficiency Fe deficiency anemia Anemia COMPLETE BLOOD COUNT, WITH DIFFERENTIAL Routine 11/02/2024 10:45 AM EST B12 deficiency Fe deficiency anemia Anemia FERRITIN Routine 11/02/2024 10:45 AM EST B12 deficiency Fe deficiency anemia Anemia documented in this encounter Results * VITAMIN B12 AND FOLATE (11/02/2024 10:45 AM EST) Vitamin B12 445 211 - 946 pg/mL [facility] Folate, Serum 4.7 3.1 - 17.5 ng/mL [facility] Blood Blood specimen / Unknown 11/02/2024 10:45 AM EST 11/02/2024 4:23 PM EST Jhoana Wilkins MD LAB BLOOD ORDERABLES Performing Organization Address City/State/[facility] Co de Phone Number [facility] [address] [place] [address] * Iron and Total Iron Binding Capacity (11/02/2024 10:45 AM EST) Iron 48 45 - 160 ug/dL [facility] UIBC 263 110 - 370 ug/dL [facility] Total Iron Binding Capacity 311 228 - 428 ug/dL [facility] Iron Sat 15 11 - 50 % [facility] Blood Blood specimen / Unknown 11/02/2024 10:45 AM EST 11/02/2024 4:23 PM EST Jhoana Wilkins MD LAB BLOOD ORDERABLES [facility] [address] * (ABNORMAL) FERRITIN (11/02/2024 10:45 AM EST) Ferritin 224(H) 15 - 150 ng/mL [facility] Blood Blood specimen / Unknown 11/02/2024 10:45 AM EST 11/02/2024 4:23 PM EST Jhoana Wilkins MD LAB BLOOD ORDERABLES Performing Organization Address City/[facility]/ZIP Co de Phone Number [facility] [address] * (ABNORMAL) Complete Blood Count, with Differential (11/02/2024 10:45 AM EST) Pathologist [facility] WBC 11.76(H) 4.00 - 11.00 Thousand/ uL [...] MD LAB BLOOD ORDERABLES Performing Organization Address City/State/[facility] de Phone Number [facility] [address] [place] [address] documented in this encounter Visit Diagnoses Diagnosis B12 deficiency- Primary Fe deficiency anemia Unspecified iron deficiency anemia Anemia Unspecified anemia documented in this encounter Care Teams Service Parts Driver Relationship Specialty Start Date End Date Radha Martel PA-C [address] [place] [address] PCP - General Internal Medicine 02/24/24 Vinod Robles MD [address] [place] [address] Primary Computer Systems Integrator Cardiovascular Disease 09/02/24 documented as of this encounter
--- OUTSIDE RECORDS SUMMARY | 2024-11-10 08:33 | XMS_ITS | Encounter Summary ---
Author Organization [facility] Address [address] [place] [address] Care Team Providers Care Audio Visual Aids Director Name Role Phone Radha Martel PA-C Primary Care Provi mckenna Vinod Robles MD Unavailable [phone] Encounter Details Date Type Department Care Team (Late st Contact Info) Description 10/29/2024 11:45 AM EST Hospital Encounter [facility] [address] [place] [phone] Social History Tobacco Use Types Packs/Day Years [...] Description 11/24/2024 11:00 AM EST Office Visit [address] [phone] Radha Martel PA-C 100 [place], [place] [phone] 11/25/2024 8:00 AM EST Office Visit [facility] Dermatology [address] [place] [phone] Radha Martel PA-C [address] [place] [address] Radu Aleman MD [address] [place], [place] [address] 11/30/2024 8:45 AM EST Appointment [facility] Department of Cardiology [place] [address] [place] [phone] Antonio Puente MD [address] [place] [address] 12/14/2024 8:30 AM EDT Office Visit [facility] Department of Cardiology [place] [address] [place] [phone] Antonio Puente MD [address] [place] [address] 02/10/2025 11:40 AM EDT Office Visit [facility] Department Of Hematology/Oncology [place] [address] [place] [phone] Jhoana Wilkins MD 300 [facility] [address] [place], [place] [phone] documented as of this encounter Procedures Procedure [...] your patient to us, Jassi Boone MD [id number] (Electronically Signed - 10/29/2024 12:28) Copy: PATIENT [...] Boone MD 10/29/2024 12:28 PM EST RPWorkstation: [id number] Thank you for referring your patient to us, Jassi Boone MD [id number] (Electronically Signed - 10/29/2024 12:28) Copy: PATIENT , JANAK Longoria DIAGNOSTIC IMAGI NG ORDERABLES documented in this encounter Visit Diagnoses Not on filedocumented in this encounter Care Teams Audio Visual Aids Director Relationship Specialty Start Date End Date Radha Martel PA-C [address] [place] [address] PCP - General Internal Medicine 02/24/24 Vinod Robles MD [address] [place] [address] Primary Network Developer Cardiovascular Disease 09/02/24 documented as of this encounter
--- OUTSIDE RECORDS SUMMARY | 2024-11-10 08:33 | XMS_ITS | Clinical Summary ---
Author Organization [facility] Address [address] [place] [address] Care Team Providers Care Cupola Patcher Helper Name Role Phone Radha Martel Primary Care Provider [phone] Allergies Active Allergy Reactions Criticality Noted Date Comments Adhesive Tape-Silicones Rash Medium 07/26/2021 Clindamycin Anaphylaxis High 07/26/2021 Venlafaxine 06/01/2020 Other Reaction(s): Other (See Comments) Suicidal ideation Medications Medication Sig Dispensed Refills Start Date End Date Status erenumab-aooe (Aimovig Autoinjector) 140 mg/mL injection INJECT 140 MG SUBCUTANEOUSLY ONCE FOR 30 DAYS 04/15/2023 Active armodafiniL (NUVIGIL) 150 mg tablet Take 200 mg by mouth daily. 01/30/2023 Active etonogestrel-eluting contraceptive device 68 mg implant subdermal implant Inject 68 mg under the skin. 06/06/2015 Active lamoTRIgine (LaMICtal) 25 mg tablet Take 4 tablets (100 mg total) by mouth daily. 01/24/2023 Active magnesium oxide (MAG-OX) 400 mg (241.3 elemental magnesium) tablet 03/05/2023 Active methocarbamoL (ROBAXIN) 750 mg tablet TAKE 1 TABLET BY MOUTH EVERY 6 HOURS NEEDED FOR SPASMS 10/06/2023 Active predniSONE (DELTASONE) 2.5 mg tablet 2 PO Qam 09/11/2023 Active pregabalin (LYRICA) 150 mg capsule Take 1 capsule (150 mg total) by mouth 2 (two) times a day. 10/10/2023 Active QUEtiapine (SEROquel) 50 mg tablet Take 2 tablets (100 mg total) by mouth every night at bedtime. 06/29/2022 Active riboflavin (VITAMIN B2) 400 mg tablet Take 1 tablet by mouth daily. 09/27/2023 Active valACYclovir (VALTREX) 500 mg tablet Take 1 tablet (500 mg total) by mouth daily. 04/15/2023 Active cariprazine (Vraylar) 1.5 mg capsule Take 1 capsule (1.5 mg total) by mouth daily. 02/28/2023 Active Active Problems Problem Noted Date Diagnosed Date Class 2 severe obesity due t o excess calories with serious comorbidity and body mass index (BMI) of 37.0 to 37.9 in adult 11/28/2023 Attention deficit disorder 04/15/2023 Bipolar 2 disorder, major depressive episode 07/2023 Cholecystitis 04/02/2023 Chronic pelvic pain in female 03/08/2023 Nondependent opioid abuse in remission 3 Overview (11/28/2023): sober x 7 years [place] 08/28/2022 Endometriosis 06/02/2020 Overview (11/28/2023): Last Assessment & Plan: Patient requesting hysterectomy [...] opinion from another surgeon versus referral to [facility] Endometriosis clinic in [place]. She would like referral to the endometriosis clinic, which was placed today. All questions answered. Recurrent sinus infections 01/19/2020 Generalized anxiety disorder 09/02/2019 ASCUS with positive high risk HPV cervical 01/07 Overview (11/28/2023): ASCUS HR HPV 05/2015 Herpes simplex of female genitalia 08/05/2015 Fe deficiency anemia 08/04/2014 Fatty liver disease, nonalcoholic 07/07/2014 Focal nodular hyperplasia of liver 07/07/2014 Migraines 08/07/2013 Asthma 03/06/2012 Perennial allergic rhinitis 03/06/2012 Depression 10/23/2011 Overview (11/28/2023): No meds curently patietn will self report if mood changes Has therapist Suggest Psyche consult at Hospital post delivery and perhaps medication started at that time Immunizations Name Administration Dates Next Due Influenza trivalent, with pr eservative (Fluzone; Afluria) 6mo and older 08/06/2019,07/14/2012 PPD Test 06/02/2020 Pneumococcal polysaccharide 23 valent (Pneumovax 23) 2yo and older 06/02/2020 Tdap Tetanus diptheria acell ular pertussis (Boostrix; Adacel) 7yo and older 03/22/2023,07/14/2012,09/19/2011 Surgical History Surgery Date Site/Laterality Comments OTHER SURGICAL HISTORY PROCEDURE:gastric sleeve SECTION PROCEDURE: SECTION TONSILLECTOMY PROCEDURE:TONSILLECTOMY CHOLECYSTECTOMY 04/02/2023 N/A PROCEDURE:CHOLECYSTECTOMY;COMMENT:Pr ocedure: LAPAROSCOPY CHOLECYSTECTOMY; Surgeon: Jhonny Canada MD; Location: [facility]; Service: General; Laterality: N/A; Medical History Medical History Date Comments Fibromyalgia DX:Fibromyalgia Anxiety DX:Anxiety Depression DX:Depression Fatigue due to excessive exertion DX:Fatigue due to excessive exertion Bipolar 2 disorder, major de pressive episode (CMS/HCC) DX:Bipolar 2 disorder, major depressive episode (HCC) Adhd DX:ADHD Endometriosis DX:Endometriosis Family History Relation Name Status Comments Father doesn't know him Maternal Grandfather Maternal Grandmother Alive Mother Alive Paternal Grandfather doesn't know Paternal Grandmother doesn't know Sister Alive Social History Tobacco Use Types Packs/Day Years Used Date Smoking Tobacco: Every Day Smokeless Tobacco: Never Alcohol Use Standard Drinks/Week Comments Not Currently 0 (1 standard drink = 0.6 oz pur e alcohol) Sex and Gender Information Value Date Recorded Sex Assigned at Not on file Gender Identity Not on file Sexual Orientation Not on file Obstetrics History Last Filed Vital Signs Vital Sign Reading Time Taken Comments Blood Pressure 106/69 03/31/2024 8:33 AM EDT Pulse 84 03/31/2024 8:33 AM EDT Temperature - - Respiratory Rate - - Oxygen Saturation - - Inhaled Oxygen Concentration - - Weight 80.7 kg (178 lb) 03/31/2024 8:33 AM EDT Height 144.8 cm (4' 9 ) 03/31/2024 8:33 AM EDT Body Mass Index 38.52 03/31/2024 8:33 AM EDT Plan of Treatment Health Maintenance Due Date Last Done Comments Hepatitis A Vaccines (1 of 2 - Risk 2-dose series) 01/10/2011 Hepatitis B Vaccines (1 of 3 - 19+ 3-dose series) 01/10/2011 Pneumococcal Vaccine: Pediatrics (0 to 5 Years) and At-Risk Patients (6 to 64 Years) (2 of 2 - PCV) 06/02/2021 06/02/2020 Depression Screening 09/15/2022 HIV Screening 09/15/2022 Hepatitis C Screening 09/15/2022 Social Influencers of Health Screening 09/15/2022 Cervical Cancer Screening: P ap Smear 01/10/2024 01/09/2021, 01/20/2018 COVID-19 Vaccine (1 - 2023-2 5 season) 2024 Influenza Vaccine (#1) 2024 , 07/14/2012 Cholesterol Screening (Lipid Panel) 03/15/2028 03/15/2023 DTaP,Tdap,and Td Vaccines (4 - Td or Tdap) 03/22/2033 03/22/2023, 07/14/2012, 09/19/2011 HIB Vaccines Aged Out No longer eligi ble based on patient's age to complete this topic HPV Vaccines Aged Out No longer eligi ble based on patient's age to complete this topic IPV Vaccines Aged Out No longer eligi ble based on patient's age to complete this topic MMR Vaccines Aged Out No longer eligi ble based on patient's age to complete this topic Meningococcal ACWY Vaccine Aged Out N o longer eligible based on patient's age to complete this topic RSV Immunization Patients Under 20 months Aged Out No longer eligible b ased on patient's age to complete this topic Varicella Vaccines Aged Out No longer eligible based on patient's age to complete this topic Procedures Procedure Name Priority Date/Time Associated Diagnosis Comments LIPID PANEL Routine 03/15/2023 PAP SMEAR Routine 01/09/2021 from Last 3 Months or Most Recently Relevant to Health Maintenance Results * Lipid panel (03/15/2023) LDL/HDL Ratio 2 5 Triglycerides 55 150 mg/dL Cholesterol 112 200 mg/dL HDL 56 50 mg/dL LDL Cholesterol 42 100 mg/dL Blood Venous blood specimen / Unknown Historical Provider LAB BLOOD ORDERAB LES * Pap smear (01/09/2021) 01/09/2021 Narrative HISTORICAL TESTING LAB RESULTING AGENCY - 2021 11:45 AM EDT [id number] THINPREP PAP, IMAGED: NEGATIVE FOR SQUAMOUS INTRAEPITHELIAL LESION AND MALIGNANCY . JERICA ZARAGOZA(ASCP) (CASE ELECTRONICALLY SIGNED 01 11 2021) ADEQUACY: SATISFACTORY ENDOCERVICAL/TRANSFORMATION ZONE COMPONENT PRESENT. SOURCE: THINPREP PAP HPV IF ASCUS, CERVICAL, IMAGED CLINICAL INFORMATION: HPV IF DIAGNOSIS OF ASCUS. PAP HX NEG, Z12.4 Luz Maria MONCADA LAB CYTOLOGY ORDERA BLES HISTORICAL TESTING LAB RESULTING AGENCY from Last 3 Months or Most Recently Relevant to Health Maintenance Care Teams Cupola Patcher Helper Relationship Specialty Start Date End Date Radha Martle PA [address] [facility] [address] [place] [address] PCP - General 02/24/24
--- OUTSIDE RECORDS SUMMARY | 2024-11-10 08:33 | XMS_ITS | Encounter Summary ---
Author Organization [facility] Address [address] [place] [address] Care Team Providers Care Sales Force Developer Name Role Phone Radha Martel PA-C Primary Care Provi mckenna Vinod Robles MD Unavailable [phone] Reason for Visit * Reason Comments Other Encounter Details Date Type Department Care Team (Late Contact Info) Description 03/23/[address] [address] Radha Martel PA-C [address] [place] [address] Other Social History Tobacco Use Types Packs/Day Years [...] Description 11/24/2024 11:00 AM EST Office Visit [address] [place] [address] Radha Martel PA-C [address] [place] [address] 11/25/2024 8:00 AM EST Office Visit [facility] Dermatology [address] [place] [phone] Radha Martel PA-C [address] [place] [address] Radu Aleman MD [address] [place] [address] 11/30/2024 8:45 AM EST Appointment [facility] Department of Cardiology [place] [address] [place] [phone] Antonio Puente MD [address] [place] [address] 12/14/2024 8:30 AM EDT Office Visit [facility] Department of Cardiology [place] [address] [place] [phone] Antonio Puente MD [address] [place] [address] 02/10/2025 11:40 AM EDT Office Visit [facility] Department Of Hematology/Oncology [address] [place] [phone] Jhoana Wilkins MD [address] [place], [place] [id number] documented as of this encounter Visit Diagnoses Not on filedocumented in this encounter Care Teams Sales Force Developer Relationship Specialty Start Date End Date Radha Martel PA-C [address] [place] [address] PCP - General Internal Medicine 02/24/24 Vinod Robles MD [address] [place] [address] Primary Geospatial Scientist Cardiovascular Disease 09/02/24 documented as of this encounter
== END 2024-11-10 08:51 | disposition home or self-care (01) ==
PROVIDERS: PCP Nurse Practitioner; Visit Provider Psychiatry & Neurology Neurology
DX: G43.719 Chronic migraine without aura, intractable, without status migrainosus (principal)
CPT/HCPCS: 64615

== ENCOUNTER → 2024-11-10 08:20 | Outpatient (BNVA) | payer BC, SELFPAY | PROVIDERS: PCP Nurse Practitioner; Visit Provider Psychiatry & Neurology Neurology | DX: G43.719 Chronic migraine without aura, intractable, without status migrainosus (principal) | CPT/HCPCS: 64615; 99211; J0585 ==

== ENCOUNTER 2024-11-11 07:50 | Outpatient (AMB) | payer BC, SELFPAY ==
--- OUTSIDE RECORDS SUMMARY | 2024-11-11 07:53 | XMS_ITS | Encounter Summary ---
Author Organization [facility] Address [address] [place] [address] Care Team Providers Care Accounts Receivable Supervisor Name Role Phone Siddhartha Oakes MD Primary Care Provider [phone] Martha Grey APRN Primary Care Provider Unav ailable Martha Grey APRN Primary Care Provider Unav ailable Miek Burns NP Primary Care Provider Unavail able Martha Grey APRN Primary Care Provider Unav ailable Encounter Details Date Type Department Care Team Description 08/13/2019 Old Medical Records Medical Records [address] [place] [address] Abstract, Provider Social History Tobacco Use Types Packs/Day Years Used Date Smoking Tobacco: Former Cigarettes Q uit: 05/07/2013 Smokeless Tobacco: Never Alcohol Use Standard Drinks/Week Comments No 0 (1 standard drink = 0.6 oz pur e alcohol) Alcohol Habits Answer Date Recorded How often do you have a drink containing alcohol ? Never 01/09/2021 How many drinks containing a lcohol do you have on a typical day when you are drinking? Not asked How often do you have six or more drinks on one occasion? Not asked Sex Assigned at Date Recorded Not on file Job Start Date Occupation Industry Not on file Not on file Not on file documented as of this encounter Plan of Treatment Not on file documented as of this encounter Visit Diagnoses Not on filedocumented in this encounter Care Teams Accounts Receivable Supervisor Relationship Specialty Start Date End Date Siddhartha Oakes MD [address] [place] [address] PCP - General Internal Medicine 05/06/19 01/12/20 Martha Grey APRN [address] [place] [address] PCP - General Internal Medicine 01/13/20 01/19/20 Martha Grey, PANFILO [address] [place] [address] PCP - General Internal Medicine 01/20/20 05/16/22 Mike Burns NP [address] [place] [address] PCP - General Family Practice 05/17/22 11/20/22 Martha Grey APRN [address] [place] [address] PCP - General Internal Medicine 11/21/22 documented as of this encounter
--- OUTSIDE RECORDS SUMMARY | 2024-11-11 07:53 | XMS_ITS | Encounter Summary ---
Author Organization [facility] Address [address] [place] [address] Care Team Providers Care Supervising Law Enforcement Analyst Name Role Phone Martha Grey APRN Primary Care Provider Unav ailable Mike Burns NP Primary Care Provider Unavail able Martha Grey APRN Primary Care Provider Unav ailable Encounter Details Date Type Department Care Team Description 04/04/2020 Refill Adult Medicine [address] [address] Martha Grey APRN Social History Tobacco Use Types Packs/Day Years Used Date Smoking Tobacco: Former Cigarettes 0.5 0.8 Q uit: 05/07/2013 Smokeless Tobacco: Never Alcohol Use Standard Drinks/Week Comments Yes 0 (1 standard drink = 0.6 oz pur e alcohol) rare Alcohol Habits Answer Date Recorded How often [...] on filedocumented in this encounter Care Teams Supervising Law Enforcement Analyst Relationship Specialty Start Date End Date Martha Grey APRN PCP - General Internal Medicine 01/20/20 05/16/22 Mike Burns NP PCP - General Family Practice 05/17/22 11/20/22 Martha Grey APRN PCP - General Internal Medicine 11/21/22 documented as of this encounter
--- OUTSIDE RECORDS SUMMARY | 2024-11-11 07:53 | XMS_ITS | Encounter Summary ---
Author Organization [facility] Address [address] [place] [address] Care Team Providers Care Mechanic Marine Engine Name Role Phone Emerald Yu MD Primary Care Provider Unavailable [facility], Pcp Primary Care Provider Unavailabl e Emerald Yu MD Primary Care Provider Unavailable [place] Colasacco, Susannah DO Primary Care Pro vider Unavailable Emerald Yu MD Primary Care Provider Unavailable [place] Colasacco, Susannah DO Primary Care Pro vider Unavailable Siddhartha Oakes MD Primary Care Provider [phone] Martha Grey APRN Primary Care Provider Unav ailable Martha Grey APRN Primary Care Provider Unav ailable Mike Burns NP Primary Care Provider Unavail able Martha Grey APRN Primary Care Provider Unav ailable Encounter Details Date Type Department Care Team Description 08/26/2013 Release of Information Medical Records [address] [place] [address] Abstract, Provider Social History Tobacco Use Types Packs/Day Years Used Date Smoking Tobacco: Former Smokeless Tobacco: Never Alcohol Use Standard Drinks/Week [...] on filedocumented in this encounter Care Teams Mechanic Marine Engine Relationship Specialty Start Date End Date Emerald Yu MD PCP - General Internal Medicine 07/14/1210/13 [facility] PCP - General Internal Medicine 10/14/13 12/17/13 Emerald Yu MD PCP - General Internal Medicine 12/18/1302/04 Susannah Rendon DO PCP - General Internal Medicine 02/14/15 05/09/15 Emerald Yu MD PCP - General Internal Medicine 05/10/1506/08 Susannah Rendon DO PCP - General Internal Medicine 07/01/15 05/05/19 Siddhartha Oakes MD [address] [place] [address] PCP - General Internal Medicine 05/06/19 01/12/20 Martha Grey APRN [address] [place] [address] PCP - General Internal Medicine 01/13/20 01/19/20 Martha Grey APRN [address] [place] [address] PCP - General Internal Medicine 01/20/20 05/16/22 Mike Burns NP [address] [place] [address] PCP - General Family Practice 05/17/22 11/20/22 Martha Grey APRN [address] [place] [address] PCP - General Internal Medicine 11/21/22 documented as of this encounter
--- OUTSIDE RECORDS SUMMARY | 2024-11-11 07:53 | XMS_ITS | Encounter Summary ---
Author Organization [facility] Address [address] [place] [address] Care Team Providers Care Plumber Cub Name Role Phone Martha Grey APRN Primary Care Provider Unav ailable Reason for Visit * Reason Comments E-prescribe Rx Request Encounter Details Date Type Department Care Team Description 01/14/2023 Refill Bariatric Surgery - [place] [address] [facility] [address] [place] [address] Jaky Coyne MD [address] [facility] [address] [place] [address] E-prescribe Rx Request Social History Tobacco Use Types Packs/Day Years [...] on filedocumented in this encounter Care Teams Plumber Cub Relationship Specialty Start Date End Date Martha Grey APRN PCP - General Internal Medicine 11/21/22 documented as of this encounter
--- OUTSIDE RECORDS SUMMARY | 2024-11-11 07:53 | XMS_ITS | Encounter Summary ---
Author Organization [facility] Address [address] [place] [address] Care Team Providers Care Law Firm Partner Name Role Phone Martha Grey APRN Primary Care Provider Unav ailable Reason for Visit * Reason Comments E-prescribe Rx Request Encounter Details Date Type Department Care Team Description 02/10/2023 Refill Bariatric Surgery - [place] [address] [facility] [address] [place] [address] Jaky Coyne MD [address] [facility] [address] [place] [address] E-prescribe Rx Request Social History [...] on filedocumented in this encounter Care Teams Law Firm Partner Relationship Specialty Start Date End Date Martha Grey APRN PCP - General Internal Medicine 11/21/22 documented as of this encounter
--- OUTSIDE RECORDS SUMMARY | 2024-11-11 07:53 | XMS_ITS | Encounter Summary ---
Author Organization [facility] Address [address] [place] [address] Care Team Providers Care Cloth Tearer Name Role Phone Siddhartha Oakes MD Primary Care Provider [phone] Emerald Yu MD Primary Care Provider Unavailable [facility], [facility] Primary Care Provider Un[facility]ailpeacehealth e Emerald Yu MD Primary Care Provider Unavailable [place] Colasacco, Susannah DO Primary Care Pro vider Unavailable Emerald Yu MD Primary Care Provider Unavailable [place] Colasacco, Susannah DO Primary Care Pro vider Unavailable Siddhartha Oakes MD Primary Care Provider [phone] Martha Grey APRN Primary Care Provider Unav ailable Martha Grey APRN Primary Care Provider Unav ailable iMke Burns NP Primary Care Provider Unavail able Martha Grey APRN Primary Care Provider Unav ailable Encounter Details Date Type Department Care Team Description 03/17/2012 Hospital Medical Records [address] [place] [address] Lisa Thorpe, [facility] [address] [place] [address] Social History Tobacco Use Types Packs/Day Years [...] on filedocumented in this encounter Care Teams Cloth Tearer Relationship Specialty Start Date End Date Siddhartha Oakes MD [address] [place] [address] PCP - General Internal Medicine 03/05/12 07/13/12 Emerald Yu MD [address] [place] [address] PCP - General Internal Medicine 07/14/12 10/13/13 [facility], [address] [address] PCP - General Internal Medicine 10/14/13 12/17/13 Emerald Yu MD [address] [place] [address] PCP - General Internal Medicine 12/18/13 02/13/15 Susannah Rendon DO [address] [place] [address] PCP - General Internal Medicine 02/14/15 05/09/15 Emerald Yu MD [address] [place] [address] PCP - General Internal Medicine 05/10/15 06/30/15 Susannah Rendon, [address] [place] [address] PCP - General Internal Medicine 07/01/15 05/05/19 Siddhartha Oakes MD [address] [place] [address] PCP - General Internal Medicine 05/06/19 01/12/20 Martha Grey APRN [address] [place] [address] PCP - General Internal Medicine 01/13/20 01/19/20 Martha Grey APRN [address] [place] [address] PCP - General Internal Medicine 01/20/20 05/16/22 Mike Burns NP [address] [place] [address] PCP - General Family Practice 05/17/22 11/20/22 Martha Grey APRN [address] [place] [address] PCP - General Internal Medicine 11/21/22 documented as of this encounter
--- OUTSIDE RECORDS SUMMARY | 2024-11-11 07:53 | XMS_ITS | Encounter Summary ---
Author Organization [facility] Address [address] [place] [address] Care Team Providers Care Internal Control Specialist Name Role Phone Emerald Yu MD Primary Care Provider Unavailable [facility], Pcp Primary Care Provider Unavailbruce e Emerald Yu MD Primary Care Provider Unavailable [place] Colasacco, Susannah DO Primary Care Pro vider Unavailable Emerald Yu MD Primary Care Provider Unavailable [place] Colasacco, Susannah DO Primary Care Pro vider Unavailable Siddhartha Oakes MD Primary Care Provider [phone] Martha Grey APRN Primary Care Provider Unav ailable Martha Grey APRN Primary Care Provider Unav ailable Mike Burns NP Primary Care Provider Unavail able Martha Grey APRN Primary Care Provider Unav ailable Reason for Visit * Reason Onset Date Comments PT-1 08/11/2013 Encounter Details Date Type Department Care Team Description 08/11/2013 Telephone Adult Medicine [address] [address] Emerald Yu MD PT-1 Social History Tobacco Use Types Packs/Day Years [...] on file documented as of this encounter Miscellaneous Notes * Telephone Encounter - Peggy Rodriguez M.A. - 08/11/2013 4:55 PM EST Pt 1 form to be submitted online . Patient will be notified if denied. * Telephone Encounter - Dixie Tanner - 08/11/2013 3:28 PM EST Patients [facility] Pt. demographics and [facility] information verified YES Mailing address if different from home address YES Name of treating provider Emerald Yu Address/zip for treating provider [address] [place] [address] Phone # of treating provider [phone] What specialty is this provider? pcp For what reason do they see this provider(s) All How often they see them 2 visits per month How long will they require these services 12 Months When is the visit scheduled? Not yet Medical reason why they are unable to use public transportation: Patient Active Problem List Diagnosis Code ??? Depression 311 ??? Asthma 493.90 ??? Allergic rhinitis 477.9 ??? Migraines 346.90 Do they need a wheelchair van: NO Do they need an escort to accompany them? NO Will they have an alternative pick-up address? NO PT DOES NOT NEED RELEASE OF INFORMATION SIGNED documented in this encounter Plan of Treatment Not on file documented as of this encounter Visit Diagnoses Not on filedocumented in this encounter Care Teams Internal Control Specialist Relationship Specialty Start Date End Date Emerald Yu MD PCP - General Internal Medicine 07/14/1210/13 [facility], Pcp PCP - General Internal Medicine 10/14/13 12/17/13 Emerald Yu MD PCP - General Internal Medicine 12/18/1302/04 Susannah Rendon DO PCP - General Internal Medicine 02/14/15 05/09/15 Emerald Yu MD PCP - General Internal Medicine 05/10/1506/08 Susannah Rendon DO PCP - General Internal Medicine 07/01/15 05/05/19 Siddhartha Oakes MD [address] [place] [address] PCP - General Internal Medicine 05/06/19 01/12/20 Martha Grey APRN [address] [place] [address] PCP - General Internal Medicine 01/13/20 01/19/20 Martha Grey APRN [address] [place] [address] PCP - General Internal Medicine 01/20/20 05/16/22 Mike Burns NP [address] [place] [address] PCP - General Family Practice 05/17/22 11/20/22 Martha Grey APRN [address] [place] [address] PCP - General Internal Medicine 11/21/22 documented as of this encounter
--- OUTSIDE RECORDS SUMMARY | 2024-11-11 07:53 | XMS_ITS | Encounter Summary ---
Author Organization [facility] Address [address] [place] [address] Care Team Providers Care Meter Repair Shop Supervisor Name Role Phone Siddhartha Oakes MD Primary Care Provider [phone] Martha Grey APRN Primary Care Provider Unav ailable Martha Grey APRN Primary Care Provider Unav ailable Mike Burns NP Primary Care Provider Unavail able Martha Grey APRN Primary Care Provider Unav ailable Reason for Visit * Reason Onset Date Comments Medication 09/07/2019 Encounter Details Date Type Department Care Team Description 09/07/2019 Telephone Adult Medicine [address] [address] Siddhartha Oakes MD [address] [place] [id number] Medication Social History Tobacco Use Types Packs/Day Years [...] encounter Miscellaneous Notes * Telephone Encounter - Gris R Christopher M.A. - 09/07/2019 9:58 AM EST Pt took the atarax x 1 dose (whole tablet) on 09/04, states she had to leave work because it made her so sleepy she was falling asleep at her desk. She has not tried it again but is asking if you could give her something different. States she cannot get in with the med provider until the end of November. * Telephone Encounter - Jackie Alcazar - 09/07/2019 8:56 AM EST Who is calling? The patient Name of the medication hydrOXYzine (ATARAX) 10 MG tablet What is the specific problem or interaction? Medication is making her extremely tired and she had to leave work because of it. Alternative? If the patient is having a problem with taking the med - how long has the problem been going on? N/A documented in this encounter Plan of Treatment Not on file documented as of this encounter Visit Diagnoses Not on filedocumented in this encounter Care Teams Meter Repair Shop Supervisor Relationship Specialty Start Date End Date Siddhartha Oakes MD [address] [place] [address] PCP - General Internal Medicine 05/06/19 01/12/20 Martha Grey APRN [address] [place] [address] PCP - General Internal Medicine 01/13/20 01/19/20 Martha Grey APRN [address] [place] [address] PCP - General Internal Medicine 01/20/20 05/16/22 Mike Burns NP [address] [place] [address] PCP - General Family Practice 05/17/22 11/20/22 Martha Grey APRN [address] [place] [address] PCP - General Internal Medicine 11/21/22 documented as of this encounter
--- OUTSIDE RECORDS SUMMARY | 2024-11-11 07:53 | XMS_ITS | Encounter Summary ---
Author Organization [facility] Address [address] [place] [address] Care Team Providers Care Pharmacy Salesperson Name Role Phone Martha Grey APRN Primary Care Provider Unav ailable Mike Burns NP Primary Care Provider Unavail able Martha Grey APRN Primary Care Provider Unav ailable Reason for Visit * Reason Onset Date Comments Provider Call Back 03/28/2020 Encounter Details Date Type Department Care Team Description 03/28/2020 Telephone Adult Medicine B - [address] [address] Martha Grey APRN Provider Call Back Social History Tobacco Use Types Packs/Day Years [...] encounter Miscellaneous Notes * Telephone Encounter - Gaby Chambers - 03/29/2020 8:25 AM EDT Deyanira was just seen on March 15 for her ready to submit visit - she has not been submitted to her insurance as of yet but will be soon. Due to Covid-19, there is a delay in all surgeries. I will contact her as soon as I have an authorization. * Telephone Encounter - Jackie Alcazar - 03/28/2020 11:00 AM EDT Caller requesting call back from provider: Is the caller the patient? YES If caller is not the patient, what is the callers name? N/A Callers relationship to patient? N/A If person calling is not the patient themselves, is there a verbal release in FYI or permanent comments for this person: NO Reason for call back: Patient is calling to check on status of her surgery , states that it was suppose to be submitted to insurance a few weeks ago and she has not heard anything yet. She did call her insurance and they told her nothing had been submitted yet. Caller offered to speak with the nurse for assistance: YES Response: Patient offered to speak with nurse for assistance and patient agreed. Message forwarded to nurse. documented in this encounter Plan of Treatment Not on file documented as of this encounter Visit Diagnoses Not on filedocumented in this encounter Care Teams Pharmacy Salesperson Relationship Specialty Start Date End Date Martha Grey APRN PCP - General Internal Medicine 01/20/20 05/16/22 Mike Burns NP PCP - General Family Practice 05/17/22 11/20/22 Martha Grey APRN PCP - General Internal Medicine 11/21/22 documented as of this encounter
--- OUTSIDE RECORDS SUMMARY | 2024-11-11 07:53 | XMS_ITS | Encounter Summary ---
Author Organization [facility] Address [address] [place] [address] Care Team Providers Care An Employee Sponsor Or Advocate And Name Role Phone Siddhartha Oakes MD Primary Care Provider [phone] Martha Grey APRN Primary Care Provider Unav ailable Martha Grey APRN Primary Care Provider Unav ailable Mike Burns NP Primary Care Provider Unavail able Martha Grey APRN Primary Care Provider Unav ailable Reason for Visit * Reason Onset Date Comments TEST RESULTS 07/27/2019 Encounter Details Date Type Department Care Team Description 07/27/2019 Telephone Gastroenterology - [address] [address] Reji Ortega MD TEST RESULTS Social History Tobacco Use Types Packs/Day Years [...] encounter Miscellaneous Notes * Telephone Encounter - Nova Arvizu M.A. - 07/29/2019 4:27 PM EDT Spoke with deyanira and we were able to communicate what was going on and what was needed. We are waiting for auth for her test at [facility], I sent a message to the PA dept checking on status. * Telephone Encounter - Jackie Russo - 07/29/2019 8:43 AM EDT Patient is calling because she really wants to speak with Dr. Ortega. She knows they found something from the defecogram and now they need to do Barium Enema and the radiologist wanted a fistlugram not a Barium Enema * Telephone Encounter - Jessica Davis - 07/27/2019 12:04 PM EDT Inform patient: ANY URGENT OR ABNORMAL RESULTS WIILL RESULT IN A CALL BACK TO THE PATIENT OMER. Type of test: :defecogram Date test was performed: 07/23/2019 Where was the test performed: [facility] Who ordered this test?: Dr. Collins Is the doctor here today?: NO Can the message wait until the doctor returns?: YES IF PATIENT'S PCP IS NOT IN INSTRUCT PATIENT THAT THEY WILL RECEIVE A CALL BACK WHEN THE PCP IS IN THE OFFICE NEXT. documented in this encounter Plan of Treatment Not on file documented as of this encounter Visit Diagnoses Not on filedocumented in this encounter Care Teams An Employee Sponsor Or Advocate And Relationship Specialty Start Date End Date Siddhartha Oakes MD [address] [place] [address] PCP - General Internal Medicine 05/06/19 01/12/20 Martha Grey APRN [address] [place] [address] PCP - General Internal Medicine 01/13/20 01/19/20 Martha Grey APRN [address] [place] [address] PCP - General Internal Medicine 01/20/20 05/16/22 Mike Burns NP [address] [place] [address] PCP - General Family Practice 05/17/22 11/20/22 Martha Grey APRN [address] [place] [address] PCP - General Internal Medicine 11/21/22 documented as of this encounter
--- OUTSIDE RECORDS SUMMARY | 2024-11-11 07:53 | XMS_ITS | Encounter Summary ---
Author Organization [facility] Address [address] [place] [address] Care Team Providers Care State Fire Marshal Name Role Phone Siddhartha Oakes MD Primary Care Provider [phone] Martha Grey APRN Primary Care Provider Unav ailable Martha Grey APRN Primary Care Provider Unav ailable Mike Burns NP Primary Care Provider Unavail able Martha Grey APRN Primary Care Provider Unav ailable Encounter Details Date Type Department Care Team Description 07/23/2019 Correctional Casework Specialist Report Medical Records [address] [place] [address] Social History Tobacco Use Types Packs/Day Years [...] on filedocumented in this encounter Care Teams State Fire Marshal Relationship Specialty Start Date End Date Siddhartha Oakes MD [address] [place] [address] PCP - General Internal Medicine 05/06/19 01/12/20 Martha Grey, PANFILO [address] [place] [address] PCP - General Internal Medicine 01/13/20 01/19/20 Martha Grey, PANFILO [address] [place] [address] PCP - General Internal Medicine 01/20/20 05/16/22 Mike Burns NP [address] [place] [address] PCP - General Family Practice 05/17/22 11/20/22 Martha Grey APRN [address] [place] [address] PCP - General Internal Medicine 11/21/22 documented as of this encounter
--- OUTSIDE RECORDS SUMMARY | 2024-11-11 07:53 | XMS_ITS | Encounter Summary ---
Author Organization [facility] Address [address] [place] [address] Care Team Providers Care Talent Acquisition Assistant Name Role Phone Martha Grey APRN Primary Care Provider Unav ailable Reason for Visit * Reason Comments E-prescribe Rx Request Encounter Details Date Type Department Care Team Description 06/09/2023 Refill Bariatric Surgery - [place] [address] [facility] [address] [place] [address] Jaky Coyne MD [address] [facility] [address] [place] [address] E-prescribe Rx Request Social History [...] on filedocumented in this encounter Care Teams Talent Acquisition Assistant Relationship Specialty Start Date End Date Martha Grey APRN PCP - General Internal Medicine 11/21/22 documented as of this encounter
--- OUTSIDE RECORDS SUMMARY | 2024-11-11 07:53 | XMS_ITS | Encounter Summary ---
Author Organization [facility] Address [address] [place] [address] Care Team Providers Care Extension Service Specialist Name Role Phone Martha Grey APRN Primary Care Provider Unav ailable Encounter Details Date Type Department Care Team Description 01/10/2023 Refill Bariatric Surgery - [place] [address] [facility] [address] [place] [address] Maria Elena Medina PA-C [address] [facility] [address] [place] [address] Social History Tobacco Use Types Packs/Day Years [...] on filedocumented in this encounter Care Teams Extension Service Specialist Relationship Specialty Start Date End Date Martha Grey APRN PCP - General Internal Medicine 11/21/22 documented as of this encounter
--- OUTSIDE RECORDS SUMMARY | 2024-11-11 07:53 | XMS_ITS | Encounter Summary ---
Author Organization [facility] Address [address] [place] [address] Care Team Providers Care Home Health Assistant Name Role Phone Martha Grey APRN Primary Care Provider Unav ailable Mike Burns NP Primary Care Provider Unavail able Martha Grey APRN Primary Care Provider Unav ailable Reason for Referral * EXTERNAL (Routine) - Authorized/Booked Specialty Diagnoses / Procedures Referred By Aman beltran Referred To Contact PAIN MANAGEMENT / Pain Management Procedures REFERRAL TO PAIN MANAGEMENT Martha Grey APRN [address] [place] [address] External Pain Man Referral ID Status Reason Start Date Expiration Date V isits Requested Visits Authorized SEE NOTE Authorized/B ooked 02/03/2020 05/04/2020 1 1 Reason for Visit * Reason Onset Date Comments Porter Baggage Feedback 02/02/2020 Esa Alas FINE GRADER I [id number] Encounter Details Date Type Department Care Team Description 02/02/2020 Telephone Adult Medicine [address] [address] Martha Grey APRN Porter Baggage Feedback (Esa Alas ) Social History Tobacco Use Types Packs/Day Years [...] encounter Miscellaneous Notes * Telephone Encounter - Martha Grey APRN - 02/03/2020 10:27 AM EDT Referral signed * Telephone Encounter - Yesi Schuster - 02/02/2020 3:13 PM EDT Please review this patients new referral request. The referral has been pended. Please complete thefollowing: If approved> sign order If denied>please give instructions and route to your practice nursing pool. Practice nurse should inform referrals and the patient if denied. * Telephone Encounter - Courtney Pierce - 02/02/2020 2:06 PM EDT What insurance does the patient have today? Payor: [facility] / Plan: [facility] / Product Type: HMO [id number] Effective 07/07/09: BC[employer] will not retro referral requests over 90 days. If request is for this please instruct patient to call the 800# on their insurance card to appeal. Do not submit a request. Referrals cannot be processed if the insurance is not accurate. If the insurance listed above in red is NO BILLING INFORMATION FOUND FOR THIS ENCOUTNER The patients correct insurance must be obtained and registered in [facility] or their referral can not be processed. Is this a retro request? NO. If yes for what date of service do you need the retro referral? N/A Who is calling to request this referral? The patient If the caller is not the patient, what is their name? N/A Ask the patient WHO referred them to this specialty: Patient saw Martha Grey at [facility] for the problem and was told if symptoms did not resolve or worsen they would refer them to this specialty FIRST and LAST NAME of SPECIALIST PATIENT is seeing: Esa Durantakin What specialty is this? Pain management DIAGNOSIS Patient is being seen for (Not a body part or a procedure): Second opinion lower back pain Have you seen this SPECIALIST for this PROBLEM/DX before?NO If YES, when: Have you checked REVIEW or the APPT DESK to see if this referral has already been done or has visits left? YES Is this visit:Initial Visit Address of Specialist: [facility] [address] [place] [address] Phone # of Specialist:[phone] Fax #: (if applicable):\ Does patient have an appointment scheduled?: NO Date of appointment- (including a retro-request): Is this appointment related to: Not MVA, WC or Surgery related documented in this encounter Plan of Treatment Not on file documented as of this encounter Visit Diagnoses Not on filedocumented in this encounter Care Teams Home Health Assistant Relationship Specialty Start Date End Date Martha Grey APRN PCP - General Internal Medicine 01/20/20 05/16/22 Mike Burns NP PCP - General Family Practice 05/17/22 11/20/22 Martha Grey APRN PCP - General Internal Medicine 11/21/22 documented as of this encounter
--- OUTSIDE RECORDS SUMMARY | 2024-11-11 07:53 | XMS_ITS | Encounter Summary ---
[facility] Address [address] [place] [address] Care Team Providers Care General Car Supervisor Yard Name Role Phone Martha Grey APRN Primary Care Provider Unav ailable Encounter Details Date Type Department Care Team Description 03/08/2023 Wire Taper Report Medical Records [address] [place] [id number] Abstract, Provider Social History Tobacco Use Types [...] on filedocumented in this encounter Care Teams General Car Supervisor Yard Relationship Specialty Start Date End Date Martha Grey APRN PCP - General Internal Medicine 11/21/22 documented as of this encounter
--- OUTSIDE RECORDS SUMMARY | 2024-11-11 07:53 | XMS_ITS | Encounter Summary ---
Author Organization [facility] Address [address] [place] [address] Care Team Providers Care Storage Solutions Architect Name Role Phone Martha Grey APRN Primary Care Provider Unav ailable Mike Burns NP Primary Care Provider Unavail able Martha Grey APRN Primary Care Provider Unav ailable Encounter Details Date Type Department Care Team Description 02/13/2020 Sheet Metal Pattern Cutter Report Medical Records [address] [place] [id number] Abstract, Provider Social History Tobacco Use Types [...] on filedocumented in this encounter Care Teams Storage Solutions Architect Relationship Specialty Start Date End Date Martha Grey APRN PCP - General Internal Medicine 01/20/20 05/16/22 Mike Burns NP PCP - General Family Practice 05/17/22 11/20/22 Martha Grey APRN PCP - General Internal Medicine 11/21/22 documented as of this encounter
--- OUTSIDE RECORDS SUMMARY | 2024-11-11 07:53 | XMS_ITS | Clinical Summary ---
Author Organization [facility] Address [address] [place] [address] Care Team Providers Care Psychology Intern Name Role Phone Martha Grey PANFILO Primary Care Provider Unav ailable Allergies Active Allergy Reactions Severity Noted Date Comments Tape Rash/Dermatitis High 08/04/2014 Amoxicillin Hives/Urticaria High 03/31/2024 Clindamycin Hcl Anaphylaxis High 10/23/2011 Venlafaxine OTHER 06/01/2020 Suicidal ideation Medications Medication Sig Dispensed Refills Start Date End Date Status Etonogestrel (NEXPLANON) 68 MG Implant Inject 68 mg into the skin Once. 1 Each 0 06/06/2015 Active quetiapine (SEROQUEL) 50 MG tablet Take 2 Tablets by mouth daily. 0 Active valacyclovir (VALTREX) 500 MG tabletIndicatio ns:Herpes simplex of female genitalia TAKE 1 TABLET BY MOUTH EVERY DAY 90 Tablet 2 05/17/2023 Active Armodafinil 250 MG Tab TAKE 1 TABLET BY MOUTH EVERY MORNING FOR 30 DAYS 0 03/10/2024 Active Baclofen 5 MG Tab TAKE 2 TABLETS ORALLY 2 TIMES A DAY NEEDED FOR MUSCLE SPASM FOR 30 DAYS 0 03/13/2024 Active Vraylar 1.5 MG Cap Take 1 Capsule by mouth daily. 0 03/23/2024 Active Colestipol HCl 1 g Tab TAKE 2 TABLETS (2 G TOTAL) BY MOUTH DAILY. 0 03/13/2024 Active dicyclomine (BENTYL) 10 MG capsule TAKE 1-2 CAPSULES 4 TIMES DAILY NEEDED FOR ABDOMINAL PAIN OR DIARRHEA 0 03/02/2024 Active eszopiclone (LUNESTA) 1 MG Tab TAKE 1 TABLET BY MOUTH AT BEDTIME 0 02/27/2024 Active famotidine (PEPCID) 20 MG tablet Take 1 Tablet by mouth 2 Times Daily. 0 03/17/2024 Active lamotrigine (LAMICTAL) 200 MG tablet Take 1 Tablet by mouth daily. 0 03/25/2024 Active ondansetron (ZOFRAN) 4 MG tablet TAKE 1 TAB 1 HOUR PRIOR TO STARTING EACH PREP. PLEASE FOLLOW INSTRUCTIONS PROVIDED BY OUR OFFICE. 0 02/25/2024 Active Creon 97785-827257 units CAPSULE ENTERIC COATED PARTICLES 0 03/27/2024 Active fluticasone (VERAMYST) 27.5 MCG/SPRAY nasal spray 2 Sprays by Nasal route daily. 0 Active Cholecalciferol (Vitamin D3) 1.25 MG (80137 UT) CapIndications: Bariatric surgery status Take 1 Capsule by mouth once a week. 8 Capsule 0 04/04/2024 Active citalopram (CELEXA) 40 MG tablet 1 tab PO daily 30 Tab 1 07/13/2019 0 Discontinued(C hange to another medication or dose) Active Problems Problem Noted Date History of COVID-19 01/10/2022 Overview: 10/28 Uses hearing aid 12/24/2020 Endometriosis 06/02/2020 Last Assessment & Plan: Patient requesting hysterectomy [...] opinion from another surgeon versus referral to [facility] Endometriosis clinic in [place]. She would like referral to the endometriosis clinic, which was placed today. All questions answered. Bariatric surgery status 05/19/2020 Recurrent sinus infections 01/19/2020 Allergic conjunctivitis of both eyes Leukocytosis 12/16/2019 Fibromyalgia 12/01/2019 Class 1 obesity due to exces s calories with serious comorbidity and body mass index (BMI) of 34.0 to 34.9 in adult 10/20/2019 Elevated sed rate 10/19/2019 Overview: 12/23-CRP 2.26 10/26- ESR of 39 Suicidal ideation 10/09/2019 Generalized anxiety disorder 09/02/2019 ASCUS with positive high risk HPV cervic al 01/07/2017 Overview: ASCUS HR HPV 05/2015 Herpes simplex of female genitalia 08/05 Fe deficiency anemia 08/04/2014 Focal nodular hyperplasia of liver 07/07 Fatty liver disease, nonalcoholic 2013 Migraines 08/07/2013 Asthma 03/06/2012 Perennial allergic rhinitis 03/06/2012 Depression 10/23/2011 Overview: No meds curently patietn will self report if mood changes Has therapist Suggest Psyche consult at Hospital post delivery and perhaps medication started at that time Opioid abuse, in remission Overview: sober x 7 years Resolved Problems Problem Noted Date Resolved Date Obesity 11/06/2019 03/15/2020 Morbid obesity with BMI of 40.0-44.9, adult 10/0810/20/2019 Supervision of normal first 11/29/2011 09/16/2012 Overview: 1. [facility] unless cardiac consult says [facility] or Baby Condition warrants. Can deliver at [facility] Name change (got ): was Deyanira Terry 2. 12/03/11 to disclose information for the purpose of coordination of care (february release info re: physical examinations) to [facility], BAIRON Summers MA and Asha Branch [facility] Ph#[phone] ([address], [facility] [address]). Pt left [facility] 12/11/11, signed self out. Currently homeless per pt's mother. Living in [facility] ( Boarding house) Has apartment ( per patient ) 04/17 Will be moving back to home with parents 04/24 3. FOB Is in rehab for substance use HAS restraining order against for abuse 04/17/2012 4. Multiple ER visits for hyperemesis (has not used any anti-emetics since 12/11/11) - [place] [facility] [place] - received call after d/c from [facility] from grandmother that pt plans to use again and is going to kill herself - seen and eval by crisis team after section 12 - d/c and Dx with anxiety 5. Cardiac consult referral made. Normal echo Note in chart NORMAL echo as well 6. Exposure to Chlamydia TREATED 04/17 NANI neg 06/02 neg 7. wants water labor jacuzzi please 8. At risk for pp depression (consult at [facility] after delivery please) 9. Epidural Not interested in narcotics due to her past use Breast feeding Pedi: [facility] Circ: yes Substance abuse in remission 11/29/2011 Overview: History of heroin and cocaine use Is rehab Random Tox screen 12/28/11 UDS negative also 05/12 Smoker 11/29/2011 07/28/2012 Overview: Wants to quit. Patch in labor and post S/P repair of PDA (patent ductus arteriosus) 07/28/2012 Overview: Needs cardiac consult in [place] [facility] Immunizations Name Administration Dates Next Due Influenza (> 6 Months) 08/06/2019,07/14/2012 PPD-RBMG 06/02/2020 Pneumoccoccal(Adult) Polysaccharide PPSV23 06/02 Tdap 07/14/2012 Family History Medical History Relation Name Comments Strabismus Aunt maternal aunt fibromyalgia Maternal Grandmother arthrit is No Known Problems Paternal Grandfather No Known Problems Paternal Grandmother CA Breast Negative Hx CA Colon Negative Hx CA Ovarian Negative Hx Cancer of Small Bowel Negative Hx Cancer of the Pancreas Negative Hx Cancer of the Renal Cell Negative Hx Uterine Cancer Negative Hx Relation Name Status Comments Aunt Alive Father Alive Maternal Grandfather Maternal Grandmother Alive Mother Alive Paternal Grandfather Alive Paternal Grandmother Alive Sister Alive Social History Tobacco Use Types Packs/Day Years Used Date Smoking Tobacco: Former Cigarettes 0.5 0.8 Q uit: 05/07/2013 Smokeless Tobacco: Never Tobacco Cessation:Counseling Given: Not Answered Alcohol Use Standard Drinks/Week Comments No 0 [...] Pulse 84 03/31/2024 8:33 AM EDT Temperature 36.4 ??C (97.5 ??F) 10/10/2020 11:[address] Respiratory Rate 16 03/31/2024 8:33 AM EDT Oxygen Saturation 99% 03/09/2021 2:37 PM EDT Inhaled Oxygen Concentration - - Weight 80.7 kg (178 lb) 03/31/2024 8:33 AM EDT Height 144.8 cm (4' 9 ) 03/31/2024 8:33 AM EDT Body Mass Index 38.52 03/31/2024 8:33 AM EDT Plan of Treatment Health Maintenance Due Date Last Done Comments Covid-19 Vaccine (#1) 1992 CERVICAL CANCER SCREENING 01/10/20242020, 01/20/2018, 01/07/2017, Additional history exists INFLUENZA (#1) 2024 08/06/2019, 07/14/2012 BMI CHECK/ADVISE 10/07/2024 03/31/2024, , 11/22/2022, Additional history exists DEPRESSION SCREENING/FOLLOWUP 10/07/2024, 05/17/2020, 05/17/2020, Additional history exists SOCIAL NEEDS SCREENING 10/07/2024 BASELINE HEALTH EXAM 18-39 06/02/202506/02 (Completed), 06/02/2020, 02/17/2014 CHOLESTEROL SCREENING 03/31/2029 03/31/2024 , 12/14/2019, 11/06/2019, Additional history exists DTAP/TDAP/TD (4 - Td or Tdap) 03/22/2033, 07/14/2012, 09/19/2011 PNEUMOCOCCAL VACCINE FOR HIG H RISK PATIENTS (#2) 01/10/2057 06/02/2020 (Completed), 06/02/2020 Care Teams Psychology Intern Relationship Specialty Start Date End Date Martha Grey APRN PCP - General Internal Medicine 11/21/22
--- OUTSIDE RECORDS SUMMARY | 2024-11-11 07:53 | XMS_ITS | Encounter Summary ---
Author Organization [facility] Address [address] [place] [address] Care Team Providers Care Television Host Name Role Phone Siddhartha Oakes MD Primary Care Provider [phone] Martha Grey APRN Primary Care Provider Unav ailable Martha Grey APRN Primary Care Provider Unav ailable Mike Burns NP Primary Care Provider Unavail able Martha Grey APRN Primary Care Provider Unav ailable Encounter Details Date Type Department Care Team Description 07/29/2019 Telephone Gastroenterology - [address] [place] [address] Reji Ortega MD Social History Tobacco Use Types Packs/Day Years [...] encounter Miscellaneous Notes * Telephone Encounter - Mahogany Parker - 08/04/2019 3:34 PM EDT Valeriy Bhatt I finally got in touch with someone at [facility] and they stated that this request has been denied as thefacility is out of network. This was confirmed by Koki @ [facility], confirmation # [id number]. I have sent a message to Dr. Ortega with this information also noting that if he would like to update the order to reflect Faith, no prior auth would be needed as they are in network with the patient's insurance. I've put a call out to the patient to make her aware of the status of this request as well, I amjust waiting for her to call me back. Thank you, Mahogany Boss Auth Dept * Telephone Encounter - Nova Arvizu M.A. - 08/04/2019 11:48 AM EDT Good morning, any update? * Telephone Encounter - Mahogany Parker - 07/30/2019 12:36 PM EDT Valeriy Bhatt, I'm still waiting to hear back from her insurance company as to whether or not this has been approved. Thank you, Mahogany Boss Auth Dept * Telephone Encounter - Nova Arvizu M.A. - 07/29/2019 4:23 PM EDT Patient called wondering the status of her auth for her testing at [facility], Please advise and I will contact patient. Thank you. documented in this encounter Plan of Treatment Not on file documented as of this encounter Visit Diagnoses Not on filedocumented in this encounter Care Teams Television Host Relationship Specialty Start Date End Date Siddhartha Oakes MD [address] [place] [address] PCP - General Internal Medicine 05/06/19 01/12/20 Martha Grey APRN [address] [place] [address] PCP - General Internal Medicine 01/13/20 01/19/20 Martha Grey APRN [address] [place] [address] PCP - General Internal Medicine 01/20/20 05/16/22 Mike Burns NP [address] [place] [address] PCP - General Family Practice 05/17/22 11/20/22 Martha Grey APRN [address] [place] [address] PCP - General Internal Medicine 11/21/22 documented as of this encounter
--- OUTSIDE RECORDS SUMMARY | 2024-11-11 07:54 | XMS_ITS | Encounter Summary ---
Author Organization [facility] Address [address] [place] [address] Care Team Providers Care Operator Command Support Systems Name Role Phone Martha Grey APRN Primary Care Provider Unav ailable Mike Burns NP Primary Care Provider Unavail able Martha Grey APRN Primary Care Provider Unav ailable Encounter Details Date Type Department Care Team Description 11/30/2020 Old Medical Records Medical Records [address] [place] [address] Abstract, Provider Social History Tobacco Use Types [...] file Not on file Not on file COVID-19 Exposure Response Date Recorded In the last month, have you been in contact with someone who was confirmed or suspected to have Coronavirus / COVID-19? Unable to assess 11/17/2020 7:58 AM EST documented as of this encounter Plan of Treatment Not on file documented as of this encounter Visit Diagnoses Not on filedocumented in this encounter Care Teams Operator Command Support Systems Relationship Specialty Start Date End Date Martha Grey APRN PCP - General Internal Medicine 01/20/20 05/16/22 Mike Burns NP PCP - General Family Practice 05/17/22 11/20/22 Martha Grey APRN PCP - General Internal Medicine 11/21/22 documented as of this encounter
--- OUTSIDE RECORDS SUMMARY | 2024-11-11 07:54 | XMS_ITS | Encounter Summary ---
Author Organization [facility] Address [address] [place] [address] Care Team Providers Care On Site Manager Name Role Phone Siddhartha Oakes MD Primary Care Provider [phone] Martha Grey APRN Primary Care Provider Unav ailable Martha Grey APRN Primary Care Provider Unav ailable Mike Burns NP Primary Care Provider Unavail able Martha Grey APRN Primary Care Provider Unav ailable Reason for Visit * Reason Onset Date Comments nausea 11/13/2019 Encounter Details Date Type Department Care Team Description 11/13/2019 Telephone General Surgery - [address] [place] [address] Jasmine Smith MD [address] [place] [address] [address] [place], [place] [address] nausea Social History Tobacco Use Types Packs/Day Years [...] encounter Miscellaneous Notes * Telephone Encounter - Rochelle Ledezma L.P.N. - 11/13/2019 1:33 PM EST Spoke aide the patient and advised her per Dr. Smith --supplement her iron with foods rich in iron. * Telephone Encounter - Jasmine Smith MD - 11/13/2019 9:15 AM EST Yes, makes sense. * Telephone Encounter - Rochelle Ledezma L.P.N. - 11/13/2019 8:39 AM EST Spoke with the patient . She does take the iron with food to try and combat the nausea/stomach painbut has been unsuccessful with this. Should I just recommend that she just try eating iron rich foods in her diet or is there another way to supplemnt that is no so harsh with the GI sx?? * Telephone Encounter - [place] - 11/13/2019 8:31 AM EST Patient called stating that since she's been taking the iron pills it has been making her feel nauseous. documented in this encounter Plan of Treatment Not on file documented as of this encounter Visit Diagnoses Not on filedocumented in this encounter Care Teams On Site Manager Relationship Specialty Start Date End Date Siddhartha Oakes MD [address] [place] [address] PCP - General Internal Medicine 05/06/19 01/12/20 Martha Grey APRN [address] [place] [address] PCP - General Internal Medicine 01/13/20 01/19/20 Martha Grey APRN [address] [place] [address] PCP - General Internal Medicine 01/20/20 05/16/22 Mike Burns NP [address] [place] [address] PCP - General Family Practice 05/17/22 11/20/22 Martha Grey APRN [address] [place] [address] PCP - General Internal Medicine 11/21/22 documented as of this encounter
--- OUTSIDE RECORDS SUMMARY | 2024-11-11 07:54 | XMS_ITS | Encounter Summary ---
Author Organization [facility] Address [address] [place] [address] Care Team Providers Care Citrus Picker Name Role Phone Radha Martel PA-C Primary Care Provi mckenna Vinod Robles MD Unavailable [phone] Encounter Details Date Type Department Care Team (Late st Contact Info) Description 05/26/2024 Scanned Document [facility] [address] [place] [address] Internal Medicine, Scan Social History Tobacco Use [...] Description 11/24/2024 11:00 AM EST Office Visit [address] [phone] Radha Martel PA-C [address] [place] [address] 11/25/2024 8:00 AM EST Office Visit [facility] Dermatology [address] [place] [address] Radha Martel PA-C [address] [place] [address] Radu Aleman MD [address] [place] [address] 11/30/2024 8:45 AM EST Appointment [facility] Physicians Department of Cardiology [place] [address] [place] [phone] Antonio Puente MD [address] [place] [address] 12/14/2024 8:30 AM EDT Office Visit [facility]icians Department of Cardiology [place] [address] [place] [phone] Antonio Puente MD [address] [place] [address] 02/10/2025 11:40 AM EDT Office Visit [facility] Department Of Hematology/Oncology [place] [address] [place] [phone] Jhoana Wilkins MD [address] [place], [place] [phone] documented as of this encounter Visit Diagnoses Not on filedocumented in this encounter Care Teams Citrus Picker Relationship Specialty Start Date End Date Radha Martel PA-C [address] [place] [address] PCP - General Internal Medicine 02/24/24 Vinod Robles MD [facility] [place] [address] Primary Relief Charge Nurse Cardiovascular Disease 09/02/24 documented as of this encounter
--- OUTSIDE RECORDS SUMMARY | 2024-11-11 07:54 | XMS_ITS | Encounter Summary ---
Author Organization [facility] Address [address] [place] [address] Care Team Providers Care Net Repairer Name Role Phone Martha Grey APRN Primary Care Provider Unav ailable Mike Burns NP Primary Care Provider Unavail able Martha Grey APRN Primary Care Provider Unav ailable Encounter Details Date Type Department Care Team Description 02/17/2021 Pt. Non Urgent Medical Question Adult Medicine [address] [address] Martha Grey APRN Social History Tobacco Use [...] or suspected to have Coronavirus / COVID-19? No / Unsure 02/15/2021 8:07 AM EDT documented as of this encounter Miscellaneous Notes * Telephone Encounter - Maria Elena Michaud L.P.N. - 02/17/2021 11:48 AM EDTFrom: Deyanira Stewart To: Wilfreod Grey Sent: 02/17/2021 11:46 AM EDT Subject: Kidney pain Hello, I have been taking the pain reliever and do not see any different in the pain level is therea possibility that it is kidney pain that I'm feeling because it is right in my lower back and it'salmost like a aching feeling and Tylenol and ibuprofen are not working. Please let me know documented in this encounter Plan of Treatment Not on file documented as of this encounter Visit Diagnoses Not on filedocumented in this encounter Care Teams Net Repairer Relationship Specialty Start Date End Date Martha Grey APRN PCP - General Internal Medicine 01/20/20 05/16/22 Mike Burns NP PCP - General Family Practice 05/17/22 11/20/22 Martha Grey APRN PCP - General Internal Medicine 11/21/22 documented as of this encounter
--- OUTSIDE RECORDS SUMMARY | 2024-11-11 07:54 | XMS_ITS | Encounter Summary ---
Author Organization [facility] Address [address] [place] [address] Care Team Providers Care On Car Supervisor Name Role Phone Martha Grey APRN Primary Care Provider Unav ailable Mike Burns NP Primary Care Provider Unavail able Martha Grey APRN Primary Care Provider Unav ailable Encounter Details Date Type Department Care Team Description 04/04/2022 Refill OBGYN - [place] [address] [place] [address] Gaby Unger, CORAL [address] [place] [address] Social History Tobacco Use Types Packs/Day Years [...] documented as of this encounter Visit Diagnoses Diagnosis Herpes simplex of female genitalia Genital herpes, unspecified documented in this encounter Care Teams On Car Supervisor Relationship Specialty Start Date End Date Martha Grey APRN PCP - General Internal Medicine 01/20/20 05/16/22 Mike Burns NP PCP - General Family Practice 05/17/22 11/20/22 Martha Grey APRN PCP - General Internal Medicine 11/21/22 documented as of this encounter
--- OUTSIDE RECORDS SUMMARY | 2024-11-11 07:54 | XMS_ITS | Encounter Summary ---
Author Organization [facility] Address [address] [place] [address] Care Team Providers Care Farm Mechanic Name Role Phone Martha Grey APRN Primary Care Provider Unav ailable Mike Burns NP Primary Care Provider Unavail able Martha Grey APRN Primary Care Provider Unav ailable Encounter Details Date Type Department Care Team Description 01/23/2021 Pt. Non Urgent Medical Question General Surgery - [place] [address] [facility] [address] [place] [address] Jasmine Smith MD [address] [place] [address] [address] [place], [place] [phone] Social History Tobacco Use Types Packs/Day Years [...] have Coronavirus / COVID-19? No / Unsure 01/09/2021 9:20 AM EDT documented as of this encounter Miscellaneous Notes * Telephone Encounter - Genie Erickson M.A. - 02/17/2021 11:45 AM EDT An appointment has been scheduled for 03/07/2021 with Maria Elena Becerril * Telephone Encounter - Genie Erickson M.A. - 01/27/2021 9:41 AM EDT Cathie, please book and appt for this pt with either Dr. Smith or Maria Elena, whoever has the earliest availability. documented in this encounter Plan of Treatment Not on file documented as of this encounter Visit Diagnoses Not on filedocumented in this encounter Care Teams Farm Mechanic Relationship Specialty Start Date End Date Martha Grey APRN PCP - General Internal Medicine 01/20/20 05/16/22 Mike Burns NP PCP - General Family Practice 05/17/22 11/20/22 Martha Grey APRN PCP - General Internal Medicine 11/21/22 documented as of this encounter
--- OUTSIDE RECORDS SUMMARY | 2024-11-11 07:54 | XMS_ITS | Encounter Summary ---
Author Organization [facility] Address [address] [place] [address] Care Team Providers Care Perinatal Instructor Name Role Phone Siddhartha Oakes MD Primary Care Provider [phone] Martha Grey APRN Primary Care Provider Unav ailable Martha Grey APRN Primary Care Provider Unav ailable Mike Burns NP Primary Care Provider Unavail able Martha Grey APRN Primary Care Provider Unav ailable Reason for Visit * Reason Onset Date Comments medication problems 10/09/2019 venlafaxine (EFFEXOR-XR) 37.5 MG 24 hr capsule Encounter Details Date Type Department Care Team Description 10/09/2019 Telephone Adult Medicine [address] [address] Siddhartha Oakes MD [address] [place] [phone] medication problems (venlafaxine (EFFEXOR-XR) 37.5 MG 24 hr capsule) Social History Tobacco Use Types Packs/Day Years [...] encounter Miscellaneous Notes * Telephone Encounter - Jackie Alcazar - 10/09/2019 7:08 AM EST Who is calling? The patient Name of the medication venlafaxine (EFFEXOR-XR) 37.5 MG 24 hr capsule What is the specific problem or interaction? Patient saw yesterday for increased aggitation, suicidal thoughts, break downs and overall feeling like her depression has worsened. works a half day today and instrcueted patient to reach out to [facility] to see what she should start. Brenda Benton put her back on the venlafaxine (EFFEXOR-XR) 37.5 MG 24 hr capsule to ween her off of this medication and is looking for a recommendation before he leaves so he can prescribe. Please advise If the patient is having a problem with taking the med - how long has the problem been going on? N/A documented in this encounter Plan of Treatment Not on file documented as of this encounter Visit Diagnoses Not on filedocumented in this encounter Care Teams Perinatal Instructor Relationship Specialty Start Date End Date Siddhartha Oakes MD [address] [place] [address] PCP - General Internal Medicine 05/06/19 01/12/20 Martha Grey APRN [address] [place] [address] PCP - General Internal Medicine 01/13/20 01/19/20 Martha Grey APRN [address] [place] [address] PCP - General Internal Medicine 01/20/20 05/16/22 Mike Burns NP [address] [place] [address] PCP - General Family Practice 05/17/22 11/20/22 Martha Grey APRN [address] [place] [address] PCP - General Internal Medicine 11/21/22 documented as of this encounter
--- OUTSIDE RECORDS SUMMARY | 2024-11-11 07:54 | XMS_ITS | Encounter Summary ---
Author Organization [facility] Address [address] [place] [address] Care Team Providers Care Radiator Repairer Name Role Phone Siddhartha Oakes MD Primary Care Provider [phone] Martha Grey APRN Primary Care Provider Unav ailable Martha Grey APRN Primary Care Provider Unav ailable iMke Burns NP Primary Care Provider Unavail able Martha Grey APRN Primary Care Provider Unav ailable Reason for Visit * Reason Onset Date Comments Medication 05/12/2019 prep Encounter Details Date Type Department Care Team Description 05/12/2019 Refill Gastroenterology - [address] [phone] Reji Ortega MD Medication (prep) Social History Tobacco Use Types Packs/Day Years [...] encounter Miscellaneous Notes * Telephone Encounter - Candie Aftab - 05/12/2019 4:07 PM EDT Patient is scheduled for 05/21/19, please send prep over. Thank you. documented in this encounter Plan of Treatment Not on file documented as of this encounter Visit Diagnoses Not on filedocumented in this encounter Care Teams Radiator Repairer Relationship Specialty Start Date End Date Siddhartha Oakes MD [address] [place] [address] PCP - General Internal Medicine 05/06/19 01/12/20 Martha Grey APRN [address] [place] [address] PCP - General Internal Medicine 01/13/20 01/19/20 Martha Grey APRN [address] [place] [address] PCP - General Internal Medicine 01/20/20 05/16/22 Mike Burns NP [address] [place] [address] PCP - General Family Practice 05/17/22 11/20/22 Martha Grey APRN [address] [place] [address] PCP - General Internal Medicine 11/21/22 documented as of this encounter
--- OUTSIDE RECORDS SUMMARY | 2024-11-11 07:54 | XMS_ITS | Encounter Summary ---
Author Organization [facility] Address [address] [place] [address] Care Team Providers Care Yeast Cake Cutter Name Role Phone Radha Martel PA-C Primary Care Provi mckenna Vindo Robles MD Unavailable [phone] Encounter Details Date Type Department Care Team (Late st Contact Info) Description 05/04/2024 Scanned Document [facility] [address] [place] [phone] Radha Martel PA-C [address] [place] [address] Social History Tobacco Use Types Packs/Day Years [...] Description 11/24/2024 11:00 AM EST Office Visit [address] [place] [phone] Radha Martel PA-C [address] [place], [place] [address] 11/25/2024 8:00 AM EST Office Visit [facility] Dermatology [address] [place] [phone] Radha Martel PA-C [address] [place] [address] Radu Aleman MD [address] [place] [address] [place], [place] [address] 11/30/2024 8:45 AM EST Appointment [facility] Physicians Department of Cardiology [place] [address] [place] [phone] Antonio Puente MD [address] [place] [address] 12/14/2024 8:30 AM EDT Office Visit [facility] Physicians Department of Cardiology [place] [address] [place] [phone] Antonio Puente MD [address] [place] [address] 02/10/2025 11:40 AM EDT Office Visit [facility] Department Of Hematology/Oncology [place] [address] [place] [address] Jhoana Wilkins MD [address] [place], [place] [address] documented as of this encounter Visit Diagnoses Not on filedocumented in this encounter Care Teams Yeast Cake Cutter Relationship Specialty Start Date End Date Radha Martel PA-C [address] [place] [address] PCP - General Internal Medicine 5/20/24 Vinod Robles MD [address] [place] [address] Primary Cut Off Sawyer Cardiovascular Disease 09/02/24 documented as of this encounter
--- OUTSIDE RECORDS SUMMARY | 2024-11-11 07:54 | XMS_ITS | Encounter Summary ---
Author Organization [facility] Address [address] [place] [address] Care Team Providers Care Director Phone Name Role Phone Radha Martel PA-C Primary Care Provi mckenna Vinod Robles MD Unavailable [phone] Encounter Details Date Type Department Care Team (Late st Contact Info) Description 03/13/2024 Telephone [facility] [address] [place] [phone] Radha Martel PA-C [address] [place] [address] Social History Tobacco Use Types Packs/Day Years [...] Description 11/24/2024 11:00 AM EST Office Visit [facility] [address] [facility] [address] [place] [address] Radha Martel PA-C [address] [place] [address] 11/25/2024 8:00 AM EST Office Visit [facility] Dermatology [address] [place] [address] Radha Martel PA-C [address] [place] [address] Radu Aleman MD [address] [facility] [address] [place], [place] [address] 11/30/2024 8:45 AM EST Appointment [facility] Physicians Department of Cardiology [place] [address] [place] [address] Antonio Puente MD [address] [place], [place] [address] 12/14/2024 8:30 AM EDT Office Visit [facility] Department of Cardiology [place] [address] [place] [address] Antonio Puente MD [address] [place] [address] 02/10/2025 11:40 AM EDT Office Visit [facility] Department Of Hematology/Oncology [place] [address] [place] [address] [address] [place] [phone] Jhoana Wilkins MD [address] [place], [place] [address] documented as of this encounter Visit Diagnoses Not on filedocumented in this encounter Care Teams Director Phone Relationship Specialty Start Date End Date Radha Martel PA-C [address] [place] [address] PCP - General Internal Medicine 02/24/24 Vinod Robles MD [address] [place] [address] Primary Fabric Separator Operator Cardiovascular Disease 09/02/24 documented as of this encounter
--- OUTSIDE RECORDS SUMMARY | 2024-11-11 07:54 | XMS_ITS | Encounter Summary ---
Author Organization [facility] Address [address] [place] [address] Care Team Providers Care Maintenance Welder Name Role Phone Siddhartha Oakes MD Primary Care Provider [phone] Martha Grey APRN Primary Care Provider Unav ailable Martha Grey APRN Primary Care Provider Unav ailable Mike Burns NP Primary Care Provider Unavail able Martha Grey APRN Primary Care Provider Unav ailable Encounter Details Date Type Department Care Team Description 07/14/2019 Release of Information Medical Records [address] [place] [id number] Abstract, Provider Social History Tobacco Use Types [...] on filedocumented in this encounter Care Teams Maintenance Welder Relationship Specialty Start Date End Date Siddhartha Oakes MD [address] [place] [address] PCP - General Internal Medicine 05/06/19 01/12/20 Martha Grey APRN [address] [place] [address] PCP - General Internal Medicine 01/13/20 01/19/20 Martha Grey, PANFILO [address] [place] [address] PCP - General Internal Medicine 01/20/20 05/16/22 Mike Burns NP [address] [place] [address] PCP - General Family Practice 05/17/22 11/20/22 Martha Grey APRN [address] [place] [address] PCP - General Internal Medicine 11/21/22 documented as of this encounter
--- OUTSIDE RECORDS SUMMARY | 2024-11-11 07:54 | XMS_ITS | Encounter Summary ---
Author Organization [facility] Address [address] [place] [address] Care Team Providers Care Traffic Recorder Name Role Phone Radha Martel PA-C Primary Care Provi mckenna Vinod Robles MD Unavailable [phone] Encounter Details Date Type Department Care Team (Late st Contact Info) Description 05/04/[address] [phone] Radha Martel PA-C [address] [place] [address] Social History Tobacco Use Types Packs/Day Years [...] [place] - 05/04/2024 12:44 PM ED[facility] got [facility] [...] Description 11/24/2024 11:00 AM EST Office Visit [facility] [address] [facility] [address] [place] [address] Radha Martel PA-C 100 [place] [address] 11/25/2024 8:00 AM EST Office Visit [facility] Dermatology [address] [place] [phone] Radha Martel PA-C 100 [place] [address] Radu Aleman MD 399 [facility] 260 [place] [address] 11/30/2024 8:45 AM EST Appointment [facility] Department of Cardiology [place] [facility] 100 [place] [address] Antonio Puente MD [address] [facility] 100 [place] [address] 12/14/2024 8:30 AM EDT Office Visit [facility] Department of Cardiology [place] [address] [place] [address] Antonio Puente MD [address] [place] [address] 02/10/2025 11:40 AM EDT Office Visit [facility] Physicians Department Of Hematology/Oncology [place] [address] [place] [phone] Jhoana Wilkins MD [address] [place], [place] [address] documented as of this encounter Visit Diagnoses Not on filedocumented in this encounter Care Teams Traffic Recorder Relationship Specialty Start Date End Date Radha Martel PA-C [address] [place] [address] PCP - General Internal Medicine 02/24/24 Vinod Robles MD 711 [place] [address] Primary General Office Clerk Cardiovascular Disease 09/02/24 documented as of this encounter
--- OUTSIDE RECORDS SUMMARY | 2024-11-11 07:54 | XMS_ITS | Encounter Summary ---
Author Organization [facility] Address [address] [place] [address] Care Team Providers Care Dumbwaiter Operator Name Role Phone Siddhartha Oakes MD Primary Care Provider [phone] Martha Grey APRN Primary Care Provider Unav ailable Martha Grey APRN Primary Care Provider Unav ailable Mike Burns NP Primary Care Provider Unavail able Martha Grey APRN Primary Care Provider Unav ailable Encounter Details Date Type Department Care Team Description 11/12/2019 [facility] Medical Records [address] [place] [address] Abstract, Provider Social History Tobacco Use Types [...] on filedocumented in this encounter Care Teams Dumbwaiter Operator Relationship Specialty Start Date End Date Siddhartha Oakes MD [address] [place] [address] PCP - General Internal Medicine 05/06/19 01/12/20 Martha Grey APRN 305 [place] [address] PCP - General Internal Medicine 01/13/20 01/19/20 Martha Grey APRN 305 [place] [address] PCP - General Internal Medicine 01/20/20 05/16/22 Mike Burns NP 305 [place] [address] PCP - General Family Practice 05/17/22 11/20/22 Martha Grey APRN 305 [place] [address] PCP - General Internal Medicine 11/21/22 documented as of this encounter
--- OUTSIDE RECORDS SUMMARY | 2024-11-11 07:54 | XMS_ITS | Encounter Summary ---
Author Organization [facility] Address [address] [place] [address] Care Team Providers Care Umbrella Supervisor Name Role Phone Radha Martel PA-C Primary Care Provi mckenna Vinod Robles MD Unavailable [phone] Encounter Details Date Type Department Care Team (Late st Contact Info) Description 03/10/2024 Scanned Document [facility] Department Of Hematology/Oncology [address] [phone] Jhoana Wilkins MD 300 [facility] [address] [place] [address] Social History Tobacco Use Types Packs/Day Years [...] Description 11/24/2024 11:00 AM EST Office Visit [address] [phone] Radha Martel PA-C [address] [place] [address] 11/25/2024 8:00 AM EST Office Visit [facility] Dermatology [address] [place] [address] Radha Martel PA-C [address] [place] [address] Radu Aleman MD [address] [place] [address] 11/30/2024 8:45 AM EST Appointment [facility] Department of Cardiology [place] [address] [place] [phone] Antonio Puente MD [address] [place] [address] 12/14/2024 8:30 AM EDT Office Visit [facility] Department of Cardiology [place] [address] [place] [phone] Antonio Puente MD [address] [place] [address] 02/10/2025 11:40 AM EDT Office Visit [facility] Department Of Hematology/Oncology [place] [address] [place] [phone] Jhoana Wilkins MD [address] [place], [place] [phone] documented as of this encounter Visit Diagnoses Not on filedocumented in this encounter Care Teams Umbrella Supervisor Relationship Specialty Start Date End Date Radha Martel PA-C [address] [place] [address] PCP - General Internal Medicine 02/24/24 Vinod Robles MD [facility] [place] [address] Primary Music Theory Teacher Cardiovascular Disease 09/02/24 documented as of this encounter
--- OUTSIDE RECORDS SUMMARY | 2024-11-11 07:54 | XMS_ITS | Encounter Summary ---
Author Organization [facility] Address [address] [place] [address] Care Team Providers Care Judicial Assistant Name Role Phone Siddhartha Oakes MD Primary Care Provider [phone] Martha Grey APRN Primary Care Provider Unav ailable Martha Grey APRN Primary Care Provider Unav ailable Mike Burns NP Primary Care Provider Unavail able Martha Grey APRN Primary Care Provider Unav ailable Reason for Visit * Reason Onset Date Comments APPOINTMENT 05/19/2019 [facility] Encounter Details Date Type Department Care Team Description 05/19/2019 Telephone Gastroenterology - [address] [place] [address] Reji Ortega MD APPOINTMENT ([facility]) Social History Tobacco Use Types Packs/Day Years [...] * Telephone Encounter - Candie Aftab - 05/19/2019 8:48 AM EDT Left message for patient to call be back regarding procedure appointment. Please give me the call when she calls back. documented in this encounter Plan of Treatment Not on file documented as of this encounter Visit Diagnoses Not on filedocumented in this encounter Care Teams Judicial Assistant Relationship Specialty Start Date End Date Siddhartha Oakes MD 305 [place] [address] PCP - General Internal Medicine 05/06/19 01/12/20 Martha Grey APRN 305 [place] [address] PCP - General Internal Medicine 01/13/20 01/19/20 Martha Grey APRN 305 [place] [address] PCP - General Internal Medicine 01/20/20 05/16/22 Mike Burns NP 305 [place] [address] PCP - General Family Practice 05/17/22 11/20/22 Martha Grey APRN 305 [place] [address] PCP - General Internal Medicine 11/21/22 documented as of this encounter
--- OUTSIDE RECORDS SUMMARY | 2024-11-11 07:54 | XMS_ITS | Encounter Summary ---
Author Organization [facility] Address [address] [place] [address] Care Team Providers Care Golf Course Assistant Name Role Phone Siddhartha Oakes MD Primary Care Provider [phone] Martha Grey APRN Primary Care Provider Unav ailable Martha Grey APRN Primary Care Provider Unav ailable Mike Burns NP Primary Care Provider Unavail able Martha Grey APRN Primary Care Provider Unav ailable Encounter Details Date Type Department Care Team Description 09/28/2019 Release of Information Medical Records [address] [place] [address] Abstract, Provider Social History Tobacco Use Types [...] on filedocumented in this encounter Care Teams Golf Course Assistant Relationship Specialty Start Date End Date Siddhartha Oakes MD [address] [place] [address] PCP - General Internal Medicine 05/06/19 01/12/20 Martha Grey APRN 305 [place] [address] PCP - General Internal Medicine 01/13/20 01/19/20 Martha Grey, PANFILO 305 [place] [address] PCP - General Internal Medicine 01/20/20 05/16/22 Mike Burns NP 305 [place] [address] PCP - General Family Practice 05/17/22 11/20/22 Martha Grey APRN 305 [place] [address] PCP - General Internal Medicine 11/21/22 documented as of this encounter
--- OUTSIDE RECORDS SUMMARY | 2024-11-11 07:54 | XMS_ITS | Encounter Summary ---
Author Organization [facility] Address [address] [place] [address] Care Team Providers Care Panel Flow Machine Operator Name Role Phone Siddhartha Oakes MD Primary Care Provider [phone] Martha Grey APRN Primary Care Provider Unav ailable Martha Grey APRN Primary Care Provider Unav ailable Mike Burns NP Primary Care Provider Unavail able Martha Grey APRN Primary Care Provider Unav ailable Encounter Details Date Type Department Care Team Description 01/08/2020 [facility] Medical Records [address] [place] [address] Abstract, Provider Social History Tobacco Use Types [...] on filedocumented in this encounter Care Teams Panel Flow Machine Operator Relationship Specialty Start Date End Date Siddhartha Oakes MD [address] [place] [address] PCP - General Internal Medicine 05/06/19 01/12/20 Martha Grey APRN 305 [place] [address] PCP - General Internal Medicine 01/13/20 01/19/20 Martha Grey APRN 305 [place] [address] PCP - General Internal Medicine 01/20/20 05/16/22 Mike Burns NP 305 [place] [address] PCP - General Family Practice 05/17/22 11/20/22 Martha Grey APRN 305 [place] [address] PCP - General Internal Medicine 11/21/22 documented as of this encounter
--- OUTSIDE RECORDS SUMMARY | 2024-11-11 07:54 | XMS_ITS | Encounter Summary ---
Author Organization [facility] Address [address] [place] [address] Care Team Providers Care Cyber Special Agent Name Role Phone Martha Grey PNAFILO Primary Care Provider Unav ailable Reason for Visit * Reason Comments E-prescribe Rx Request Encounter Details Date Type Department Care Team Description 12/19/2022 Refill Bariatric Surgery [facility] 175 [facility] 120 [place] [address] Maria Elena Medina PA-C 271 [facility] 110 [place] [address] E-prescribe Rx Request Social History [...] Exposure Response Date Recorded In the last 10 days, have yo u been in contact with someone who was confirmed or suspected to have Coronavirus/COVID-19? No / Unsure 11/22/2022 8:21 AM EST documented as of this encounter Plan of Treatment Not on file documented as of this encounter Visit Diagnoses Not on filedocumented in this encounter Care Teams Cyber Special Agent Relationship Specialty Start Date End Date Martha Grey APRN PCP - General Internal Medicine 11/21/22 documented as of this encounter
--- OUTSIDE RECORDS SUMMARY | 2024-11-11 07:54 | XMS_ITS | Encounter Summary ---
Author Organization [facility] Address [address] [place] [address] Care Team Providers Care Baby Registry Sales Consultant Name Role Phone Siddhartha Oakes MD Primary Care Provider [phone] Martha Grey APRN Primary Care Provider Unav ailable Martha Grey APRN Primary Care Provider Unav ailable Mike Burns NP Primary Care Provider Unavail able Martha Grey APRN Primary Care Provider Unav ailable Encounter Details Date Type Department Care Team Description 05/06/2019 [facility] Medical Records [address] [place] [address] Ricardo Cuevas Social History Tobacco Use Types Packs/Day Years [...] on filedocumented in this encounter Care Teams Baby Registry Sales Consultant Relationship Specialty Start Date End Date Siddhartha Oakes MD [address] [place] [address] PCP - General Internal Medicine 05/06/19 01/12/20 Martha Grey APRN 305 [place] [address] PCP - General Internal Medicine 01/13/20 01/19/20 Martha Grey APRN [address] [place] [address] PCP - General Internal Medicine 01/20/20 05/16/22 Mike Burns NP [address] [place] [address] PCP - General Family Practice 05/17/22 11/20/22 Martha Grey APRN [address] [place] [address] PCP - General Internal Medicine 11/21/22 documented as of this encounter
--- OUTSIDE RECORDS SUMMARY | 2024-11-11 07:54 | XMS_ITS | Encounter Summary ---
Author Organization [facility] Address [address] [place] [address] Care Team Providers Care Merchant Miller Name Role Phone Siddhartha Oakes MD Primary Care Provider [phone] Martha Grey APRN Primary Care Provider Unav ailable Martha Grey APRN Primary Care Provider Unav ailable Mike Burns NP Primary Care Provider Unavail able Martha Grey APRN Primary Care Provider Unav ailable Encounter Details Date Type Department Care Team Description 05/06/2019 Hospital Medical Records [address] [place] [address] Jasmine Smith MD [address] [place] [address] [place] [address] Social History Tobacco Use Types Packs/Day Years [...] on filedocumented in this encounter Care Teams Merchant Miller Relationship Specialty Start Date End Date Siddhartha Oakes MD [address] [place] [address] PCP - General Internal Medicine 05/06/19 01/12/20 Martha Grey APRN [address] [place] [address] PCP - General Internal Medicine 01/13/20 01/19/20 Martha Grey APRN 305 [place] [address] PCP - General Internal Medicine 01/20/20 05/16/22 Mike Burns NP 305 [place] [address] PCP - General Family Practice 05/17/22 11/20/22 Martha Grey APRN 305 [place] [address] PCP - General Internal Medicine 11/21/22 documented as of this encounter
--- OUTSIDE RECORDS SUMMARY | 2024-11-11 07:54 | XMS_ITS | Encounter Summary ---
Author Organization [facility] Address [address] [place] [address] Care Team Providers Care Biodiesel Engineering Manager Name Role Phone Siddhartha Oakes MD Primary Care Provider [phone] Martha Grey APRN Primary Care Provider Unav ailable Martha Grey APRN Primary Care Provider Unav ailable Mike Burns NP Primary Care Provider Unavail able Martha Grey APRN Primary Care Provider Unav ailable Encounter Details Date Type Department Care Team Description 12/01/2019 Hospital Medical Records [address] [place] [address] Jian Pimentel DO Social History Tobacco Use Types Packs/Day Years [...] on filedocumented in this encounter Care Teams Biodiesel Engineering Manager Relationship Specialty Start Date End Date Siddhartha Oakes MD [address] [place] [address] PCP - General Internal Medicine 05/06/19 01/12/20 Martha Grey APRN 305 [place] [address] PCP - General Internal Medicine 01/13/20 01/19/20 Martha Grey APRN 305 [place] [address] PCP - General Internal Medicine 01/20/20 05/16/22 Mike Burns NP 305 [place] [address] PCP - General Family Practice 05/17/22 11/20/22 Martha Grey APRN 305 [place] [address] PCP - General Internal Medicine 11/21/22 documented as of this encounter
--- OUTSIDE RECORDS SUMMARY | 2024-11-11 07:54 | XMS_ITS | Encounter Summary ---
Author Organization [facility] Address [address] [place] [address] Care Team Providers Care Gravel Inspector Name Role Phone Radha Martel PA-C Primary Care Provi mckenna Vinod Robles MD Unavailable [phone] Encounter Details Date Type Department Care Team (Late st Contact Info) Description 03/12/2024 Scanned Document [facility] Physicians Department Of Hematology/Oncology [place] [address] [place] [address] Jhoana Wilkins MD 300 [facility] [address] [place], [place] [address] Social History Tobacco Use Types Packs/Day Years [...] Description 11/24/2024 11:00 AM EST Office Visit [address] [place] [phone] Radha Martel PA-C 100 [place] [address] 11/25/2024 8:00 AM EST Office Visit [facility] Dermatology [address] [place] [address] Radha Martel PA-C [address] [place] [address] Radu Aleman MD [address] [place], [place] [address] 11/30/2024 8:45 AM EST Appointment [facility] Department of Cardiology [place] [address] [place] [address] Antonio Puente MD [address] [place] [address] 12/14/2024 8:30 AM EDT Office Visit [facility] Department of Cardiology [place] [address] [place] [address] Antonio Puente MD [address] [place] [address] 02/10/2025 11:40 AM EDT Office Visit [facility] Department Of Hematology/Oncology [place] [address] [place] [phone] Jhoana Wilkins MD [address] [place], [place] [address] documented as of this encounter Procedures Procedure Name Priority Date/Time Associated Diagnosis Comments LAB RESULT 03/12/2024 4:09 PM EDT documented in this encounter Results * LAB RESULT (03/12/2024 4:09 PM EDT) Jhoana Wilkins MD HX AMB PROCEDURES documented in this encounter Visit Diagnoses Not on filedocumented in this encounter Care Teams Gravel Inspector Relationship Specialty Start Date End Date Radha Martel PA-C [address] [place] [address] PCP - General Internal Medicine 02/24/24 Vinod Robles MD 1 [place] [address] Primary Button Facing Machine Operator Cardiovascular Disease 09/02/24 documented as of this encounter
--- OUTSIDE RECORDS SUMMARY | 2024-11-11 07:54 | XMS_ITS | Encounter Summary ---
Author Organization [facility] Address [address] [place] [address] Care Team Providers Care Supervisor Building Maintenance Name Role Phone Susannah Rendon DO Primary Care Pro vider Unavailable Siddhartha Oakes MD Primary Care Provider [phone] Martha Grey APRN Primary Care Provider Unav ailable Martha Grey APRN Primary Care Provider Unav ailable Mike Burns NP Primary Care Provider Unavail able Martha Grey APRN Primary Care Provider Unav ailable Reason for Visit * Reason Onset Date Comments TEST RESULTS 12/25/2018 Encounter Details Date Type Department Care Team Description 12/25/2018 Pt. Non Urgent Medic al Question Adult Medicine [address] [address] Keila Baker PA-C Social History Tobacco Use Types Packs/Day Years [...] on file documented as of this encounter Progress Notes * Karlene Parisi M.A. - 12/25/2018 1:36 PM EDTFrom: Deyanira Terry To: Keila Baker PA-C Sent: 12/25/2018 9:26 AM EDT Subject: high CRP levels Good morning, I received my that results from the hemaologist and he stated I had a high CRP level which means underlying inflammation. How do we go about figuring out why my white blood cell count is high and I have inflmattion. What is the next step? documented in this encounter Plan of Treatment Not on file documented as of this encounter Visit Diagnoses Not on filedocumented in this encounter Care Teams Supervisor Building Maintenance Relationship Specialty Start Date End Date Susannah Rendon DO PCP - General Internal Medicine 07/01/15 05/05/19 Siddhartha Oakes MD [address] [place] [address] PCP - General Internal Medicine 05/06/19 01/12/20 Martha Grey APRN 305 [place] [address] PCP - General Internal Medicine 01/13/20 01/19/20 Martha Grey APRN 305 [place] [address] PCP - General Internal Medicine 01/20/20 05/16/22 Mike Burns NP 305 [place] [address] PCP - General Family Practice 05/17/22 11/20/22 Martha Grey APRN [address] [place] [address] PCP - General Internal Medicine 11/21/22 documented as of this encounter
--- OUTSIDE RECORDS SUMMARY | 2024-11-11 07:54 | XMS_ITS | Encounter Summary ---
Author Organization [facility] Address [address] [place] [address] Care Team Providers Care Meat Grader Name Role Phone Martha Grey APRN Primary Care Provider Unav ailable Mike Burns NP Primary Care Provider Unavail able Martha Grey APRN Primary Care Provider Unav ailable Reason for Visit * Reason Onset Date Comments refill request 09/22/2021 Encounter Details Date Type Department Care Team Description 09/22/2021 Refill Adult Medicine B - [address] [address] Tennille Caicedo NP [address] [place] [address] refill request Social History Tobacco Use Types Packs/Day Years [...] encounter Miscellaneous Notes * Telephone Encounter - Lauryn Moreno M.A. - 09/22/2021 1:04 PM EST Date of last office visit was 08/02/21 Lab Results Component Value Date NA 141 07/12/2021 K 4.3 07/12/2021 CO2 30 07/12/2021 CL 107 07/12/2021 BUN 10 07/12/2021 CREAT 0.86 07/12/2021 GLU 90 07/12/2021 CA 9.3 07/12/2021 GFR > 60 07/12/2021 documented in this encounter Plan of Treatment Not on file documented as of this encounter Visit Diagnoses Not on filedocumented in this encounter Care Teams Meat Grader Relationship Specialty Start Date End Date Martha Grey APRN PCP - General Internal Medicine 01/20/20 05/16/22 Mike Burns NP PCP - General Family Practice 05/17/22 11/20/22 Martha Grey APRN PCP - General Internal Medicine 11/21/22 documented as of this encounter
--- OUTSIDE RECORDS SUMMARY | 2024-11-11 07:54 | XMS_ITS | Encounter Summary ---
Author Organization [facility] Address [address] [place] [address] Care Team Providers Care Industrial Gas Servicer Name Role Phone Martha Grey APRN Primary Care Provider Unav ailable Mike Burns NP Primary Care Provider Unavail able Martha Grey APRN Primary Care Provider Unav ailable Encounter Details Date Type Department Care Team Description 09/22/2021 Refill OBGYN - [place] [address] [place] [address] Gaby Unger, CORAL [address] [place] [address] Social History Tobacco Use Types Packs/Day Years [...] unspecified documented in this encounter Care Teams Industrial Gas Servicer Relationship Specialty Start Date End Date Martha Grey APRN PCP - General Internal Medicine 01/20/20 05/16/22 Mike Burns NP PCP - General Family Practice 05/17/22 11/20/22 Martha Grey APRN PCP - General Internal Medicine 11/21/22 documented as of this encounter
--- OUTSIDE RECORDS SUMMARY | 2024-11-11 07:54 | XMS_ITS | Encounter Summary ---
Author Organization [facility] Address [address] [place] [address] Care Team Providers Care Fly Winder Name Role Phone Susannah Rendon DO Primary Care Pro vider Unavailable Siddhartha Oakes MD Primary Care Provider [phone] Martha Grey APRN Primary Care Provider Unav ailable Martha Grey APRN Primary Care Provider Unav ailable Mike Burns NP Primary Care Provider Unavail able Martha Grey APRN Primary Care Provider Unav ailable Encounter Details Date Type Department Care Team Description 04/14/2019 Release of Information Medical Records [address] [place] [address] Abstract, Provider Social History Tobacco Use Types [...] on filedocumented in this encounter Care Teams Fly Winder Relationship Specialty Start Date End Date Susannah Rendon DO PCP - General Internal Medicine 07/01/15 05/05/19 Siddhartha Oakes MD [address] [place] [address] PCP - General Internal Medicine 05/06/19 01/12/20 Martha Grey APRN [address] [place] [address] PCP - General Internal Medicine 01/13/20 01/19/20 Martha Grey APRN [address] [place] [address] PCP - General Internal Medicine 01/20/20 05/16/22 Mike Burns NP [address] [place] [address] PCP - General Family Practice 05/17/22 11/20/22 Martha Grey APRN [address] [place] [address] PCP - General Internal Medicine 11/21/22 documented as of this encounter
--- OUTSIDE RECORDS SUMMARY | 2024-11-11 07:54 | XMS_ITS | Encounter Summary ---
Author Organization [facility] Address [address] [place] [address] Care Team Providers Care Skinning Machine Feeder Name Role Phone Radha Martel PA-C Primary Care Provi mckenna Vinod Robles MD Unavailable [phone] Reason for Visit * Reason Comments Other Encounter Details Date Type Department Care Team (Late Contact Info) Description 03/23/[address] [address] Radha Martel PA-C 100 [place] [address] Other Social History Tobacco Use Types Packs/Day [...] Description 11/24/2024 11:00 AM EST Office Visit [address] [place] [address] Radha Martel PA-C 100 [place] [address] 11/25/2024 8:00 AM EST Office Visit [facility] Dermatology [address] [place] [phone] Radha Martel PA-C [address] [place] [address] Radu Aleman MD [address] [place] [address] 11/30/2024 8:45 AM EST Appointment [facility]icians Department of Cardiology [place] [address] [place] [phone] Antonio Puente MD [address] [place] [address] 12/14/2024 8:30 AM EDT Office Visit [facility]icians Department of Cardiology [place] [address] [place] [phone] Antonio Puente MD [address] [place] [address] 02/10/2025 11:40 AM EDT Office Visit [facility] Department Of Hematology/Oncology [place] [address] [place] [phone] Jhoana Wilkins MD [address] [place], [place] [address] documented as of this encounter Visit Diagnoses Not on filedocumented in this encounter Care Teams Skinning Machine Feeder Relationship Specialty Start Date End Date Radha Martel PA-C [address] [place] [address] PCP - General Internal Medicine 02/24/24 Vinod Robles MD [address] [place] [address] Primary Manager Bank Cardiovascular Disease 09/02/24 documented as of this encounter
--- OUTSIDE RECORDS SUMMARY | 2024-11-11 07:54 | XMS_ITS | Encounter Summary ---
Author Organization [facility] Address [address] [place], [place] [address] Care Team Providers Care Internet Specialist Name Role Phone Radha Martel PA-C Primary Care Provi mckenna Vinod Robles MD Unavailable [phone] Encounter Details Date Type Department Care Team (Late st Contact Info) Description 04/02/2024 Scanned Document [address] [phone] Radha Martel PA-C 100 [place] [address] Social History Tobacco Use Types Packs/Day Years [...] Description 11/24/2024 11:00 AM EST Office Visit [address] [phone] Radha Martel PA-C [address] [place], [place] [address] 11/25/2024 8:00 AM EST Office Visit [facility] Dermatology [address] [place] [phone] Radha Martel PA-C [address] [place] [address] Radu Aleman MD [address] [place], [place] [address] 11/30/2024 8:45 AM EST Appointment [facility] Physicians Department of Cardiology [place] [address] [place] [phone] Antonio Puente MD [address] [place] [address] 12/14/2024 8:30 AM EDT Office Visit [facility] Physicians Department of Cardiology [place] [address] [place] [phone] Antonio Puente MD [address] [place] [address] 02/10/2025 11:40 AM EDT Office Visit [facility] Department Of Hematology/Oncology [place] [address] [place] [address] Jhoana Wilkins MD [address] [place], [place] [address] documented as of this encounter Visit Diagnoses Not on filedocumented in this encounter Care Teams Internet Specialist Relationship Specialty Start Date End Date Radha Martel PA-C [address] [place] [address] PCP - General Internal Medicine 02/24/24 Vinod Robles MD [address] [place] [address] Primary Bridge Ironworker Helper Cardiovascular Disease 09/02/24 documented as of this encounter
--- OUTSIDE RECORDS SUMMARY | 2024-11-11 07:54 | XMS_ITS | Encounter Summary ---
Author Organization [facility] Address [address] [place] [address] Care Team Providers Care Emergency Room Orderly Name Role Phone Martha Grey APRN Primary Care Provider Unav ailable Mike Burns NP Primary Care Provider Unavail able Martha Grey APRN Primary Care Provider Unav ailable Encounter Details Date Type Department Care Team Description 01/17/2022 Guest Services Assistant Report Medical Records [address] [place] [id number] [place] [address] Social History Tobacco Use Types Packs/Day Years [...] suspected to have Coronavirus/COVID-19? No / Unsure 01/10/2022 10:41 AM EDT documented as of this encounter Plan of Treatment Not on file documented as of this encounter Visit Diagnoses Not on filedocumented in this encounter Care Teams Emergency Room Orderly Relationship Specialty Start Date End Date Martha Grey APRN PCP - General Internal Medicine 01/20/20 05/16/22 Mike Burns NP PCP - General Family Practice 05/17/22 11/20/22 Martha Grey APRN PCP - General Internal Medicine 11/21/22 documented as of this encounter
--- OUTSIDE RECORDS SUMMARY | 2024-11-11 07:54 | XMS_ITS | Encounter Summary ---
Author Organization [facility] Address [address] [place] [address] Care Team Providers Care Content Assistant Name Role Phone Siddhartha Oakes MD Primary Care Provider [phone] Martha Grey APRN Primary Care Provider Unav ailable Martha Grey APRN Primary Care Provider Unav ailable Mike Burns NP Primary Care Provider Unavail able Martha Grey APRN Primary Care Provider Unav ailable Encounter Details Date Type Department Care Team Description 12/01/2019 Hospital Medical Records [address] [place] [address] Jian Pimentel DO Social History Tobacco Use [...] on filedocumented in this encounter Care Teams Content Assistant Relationship Specialty Start Date End Date Siddhartha Oakes MD [address] [place] [address] PCP - General Internal Medicine 05/06/19 01/12/20 Martha Grey APRN [address] [place] [address] PCP - General Internal Medicine 01/13/20 01/19/20 Martha Grey APRN [address] [place] [address] PCP - General Internal Medicine 01/20/20 05/16/22 Mike Burns NP [address] [place] [address] PCP - General Family Practice 05/17/22 11/20/22 Martha Grey APRN [address] [place] [address] PCP - General Internal Medicine 11/21/22 documented as of this encounter
--- OUTSIDE RECORDS SUMMARY | 2024-11-11 07:54 | XMS_ITS | Encounter Summary ---
Author Organization [facility] Address [address] [place] [address] Care Team Providers Care Tax Senior Associate Name Role Phone Siddhartha Oakes MD Primary Care Provider [phone] Martha Grey APRN Primary Care Provider Unav ailable Martha Grey APRN Primary Care Provider Unav ailable Mike Burns NP Primary Care Provider Unavail able Martha Grey APRN Primary Care Provider Unav ailable Encounter Details Date Type Department Care Team Description 09/21/2019 [facility] Medical Records [address] [place] [address] Abstract, Provider Social History Tobacco Use Types [...] on filedocumented in this encounter Care Teams Tax Senior Associate Relationship Specialty Start Date End Date Siddhartha Oakes MD [address] [place] [address] PCP - General Internal Medicine 05/06/19 01/12/20 Martha Grey APRN [address] [place] [address] PCP - General Internal Medicine 01/13/20 01/19/20 Martha Grey, PANFILO [address] [place] [address] PCP - General Internal Medicine 01/20/20 05/16/22 Mike Burns NP [address] [place] [address] PCP - General Family Practice 05/17/22 11/20/22 Martha Grey APRN [address] [place] [address] PCP - General Internal Medicine 11/21/22 documented as of this encounter
--- OUTSIDE RECORDS SUMMARY | 2024-11-11 07:55 | XMS_ITS | Encounter Summary ---
Author Organization [facility] Address [address] [place] [address] Care Team Providers Care Quill Machine Operator Name Role Phone Susannah Rendon DO Primary Care Pro vider Unavailable Siddhartha Oakes MD Primary Care Provider [phone] Martha Grey APRN Primary Care Provider Unav ailable Martha Grey APRN Primary Care Provider Unav ailable Mike Burns NP Primary Care Provider Unavail able Martha Grey APRN Primary Care Provider Unav ailable Encounter Details Date Type Department Care Team Description 01/16/2017 Walk In Clinic Visit Medical Records [address] [place] [address] Social History Tobacco Use Types Packs/Day Years [...] on filedocumented in this encounter Care Teams Quill Machine Operator Relationship Specialty Start Date End Date [place] Colasacco, Susannah, DO PCP - General Internal Medicine 07/01/15 05/05/19 Siddhartha Oakes MD [address] [place] [address] PCP - General Internal Medicine 05/06/19 01/12/20 Martha Grey APRN [address] [place] [address] PCP - General Internal Medicine 01/13/20 01/19/20 Martha Grey APRN [address] [place] [address] PCP - General Internal Medicine 01/20/20 05/16/22 Mike Burns NP [address] [place] [address] PCP - General Family Practice 05/17/22 11/20/22 Martha Grey APRN [address] [place] [address] PCP - General Internal Medicine 11/21/22 documented as of this encounter
--- OUTSIDE RECORDS SUMMARY | 2024-11-11 07:55 | XMS_ITS | Clinical Summary ---
Author Organization [facility] Address [address] [place] [address] Care Team Providers Care Bdc Manager Name Role Phone Radha Martel PA-C Primary Care Provi mckenna Vinod Robles MD Unavailable [phone] Allergies Active Allergy Reactions Criticality Noted [...] Orders Only [facility] Department Of Hematology/Oncology [address] [place] [phone] Jhoana Wilkins MD B12 deficiency (Primary Dx); Fe deficiency anemia; Anemia 10/29/2024 11:45 AM EST Hospital Encounter [facility] [address] [place] [address] 10/29/2024 10:10 AM EST Office Visit [facility] [place] [address] [place] [address] Jon Pleitez MD Nguyen, Nam V, PA Right foot injury, initial encounter (Primary Dx) 10/29/2024 8:45 AM EST Office Visit [facility] Department of Cardiology [place] [address] [place] [address] Antonio Puente MD Heart palpitations (Primary Dx); S/P repair of PDA; Dizziness and giddiness; Morbid obesity (HCC); Syncope and collapse 10/29/2024 Travel 10/29/2024 Scanned Document [facility] [address] [facility] [address] [place] [phone] Provider, Generic 10/29/2024 Scanned Document [facility] [address] [facility] [address] [place] [phone] Provider, Generic 09/15/2024 Travel 09/15/2024 Scanned Document [address] [address] [phone] Otolaryngology, Scan 09/07/2024 9:20 AM EST Consult [facility] [place] [address] [phone] Radha Martel PA-C Nasir, Usama Bin, MD Heart palpitations (Primary Dx); Dizzy 09/07/2024 Travel 09/07/2024 Orders Only [address] [address] [phone] Radha Martel PA-C Fibromyalgia (Primary Dx) 08/19/2024 12:30 PM EST Office Visit [address] [phone] Radha Martel PA-C Fibromyalgia (Primary Dx) 08/19/2024 Travel 08/19/2024 Scanned Document [address] [phone] Radha Martel PA-C 08/18/2024 11:20 AM EST Office Visit [facility] Department Of Hematology/Oncology [place] [address] [address] [place] [phone] Jhoana Wilkins MD Anemia (Primary Dx); B12 [...] Description 11/24/2024 11:00 AM EST Office Visit [facility] [address] [facility] [address] [place] [address] Radha Martel PA-C [address] [place] [address] 11/25/2024 8:00 AM EST Office Visit [address] [place] [address] Radha Martel PA-C [address] [place] [address] Radu Aleman MD [address] [facility] [address] [place], [place] [phone] 11/30/2024 8:45 AM EST Appointment [facility] Department of Cardiology [place] [address] [place] [phone] Antonio Puente MD [address] [place] [address] 12/14/2024 8:30 AM EDT Office Visit [facility] Department of Cardiology [place] [address] [place] [address] Antonio Puente MD [address] [place] [address] 02/10/2025 11:40 AM EDT Office Visit [facility] Department Of Hematology/Oncology [place] [address] [place] [phone] Jhoana Wilkins MD [address] [facility] [address] [place], [place] [address] Health Maintenance Due Date Last Done Comments [...] MD LAB BLOOD ORDERABLES Performing Organization Address City/[facility]/ZIP Co de Phone Number [facility] [address] [place] [address] * VITAMIN B12 AND FOLATE (11/02/2024 10:45 AM EST) Only the most recent of2 resultswithin the time period is included. Vitamin B12 445 211 - 946 pg/mL [facility] Folate, Serum 4.7 3.1 - 17.5 ng/mL [facility] Blood Blood specimen / Unknown 11/02/2024 10:45 AM EST 11/02/2024 4:23 PM EST Jhoana Wilkins MD LAB BLOOD ORDERABLES Performing Organization Address City/[facility]/ZIP Co de Phone Number [facility] [address] [place] [address], [place] * (ABNORMAL) Complete Blood Count, with [...] MD LAB BLOOD ORDERABLES Performing Organization Address City/[facility]/ZIP Co de Phone Number [facility] [address] * (ABNORMAL) FERRITIN (11/02/2024 10:45 AM EST) Only the most recent of2 resultswithin the time period is included. Ferritin 224(H) 15 - 150 ng/mL [facility] Blood Blood specimen / Unknown 11/02/2024 10:45 AM EST 11/02/2024 4:23 PM EST Jhoana Wilkins MD LAB BLOOD ORDERABLES Performing Organization Address [facility] Co de Phone Number [address] * XR Foot 3+ views-Right (10/29/2024 11:30 AM EST) Anatomical Region Laterality Modality Foot Right Computed Radiogr aphy 10/29/2024 11:3 0 AM EST 10/29/2024 11:30 AM EST Impressions 10/29/2024 12:28 PM EST Normal right foot. Electronically signed by: ??Jassi Boone MD ??10/29/2024 12:28 PM EST Thank you for referring your patient to us, Jassi Boone MD [phone] (Electronically Signed - 10/29/2024 12:28) Copy: PATIENT [...] Boone MD 10/29/2024 12:28 PM EST RPWorkstation: [id number] Thank you for referring your patient to us, Jassi Boone MD [phone] (Electronically Signed - 10/29/2024 12:28) Copy: PATIENT [...] AM EST Performed at: ??01 - [facility] [address] ??[id number] Employee Relations Specialist: Avelino sEcobar MD, Phone: ??[phone] Jhoana Wilkins MD LAB BLOOD ORDERABLES [facility] [...] PM EST Performed at: ??01 - [facility] [address] ??[id number] Employee Relations Specialist: Roxi Salazar MD, Phone: ??[phone] Jhoana Wilkins MD LAB BLOOD ORDERABLES [facility] ([place]) [facility] 1 from Last 3 Months Care Teams Bdc Manager Relationship Specialty Start Date End Date Radha Martel PA-C [address] [place] [address] PCP - General Internal Medicine 02/24/24 Vinod Robles MD [address] [place] [address] Primary Nutritional Chemist Cardiovascular Disease 09/02/24
--- OUTSIDE RECORDS SUMMARY | 2024-11-11 07:55 | XMS_ITS | Encounter Summary ---
Author Organization [facility] Address [address] [place] [address] Care Team Providers Care Mexican Food Maker Name Role Phone Martha Grey APRN Primary Care Provider Unav ailable Mike Burns NP Primary Care Provider Unavail able Martha Grey APRN Primary Care Provider Unav ailable Encounter Details Date Type Department Care Team Description 04/07/2020 [facility] Medical Records [address] [place] [address] Abstract, Provider Social History Tobacco Use Types [...] on filedocumented in this encounter Care Teams Mexican Food Maker Relationship Specialty Start Date End Date Martha Grey APRN PCP - General Internal Medicine 01/20/20 05/16/22 Mike Burns NP PCP - General Family Practice 05/17/22 11/20/22 Martha Grey APRN PCP - General Internal Medicine 11/21/22 documented as of this encounter
--- OUTSIDE RECORDS SUMMARY | 2024-11-11 07:55 | XMS_ITS | Encounter Summary ---
Author Organization [facility] Address [address] [place] [address] Care Team Providers Care Photocomposing Machine Operator Name Role Phone Susannah Rendon DO Primary Care Pro vider Unavailable Siddhartha Oakes MD Primary Care Provider [phone] Martha Grey APRN Primary Care Provider Unav ailable Martha Grey APRN Primary Care Provider Unav ailable Mike Burns NP Primary Care Provider Unavail able Martha Grey APRN Primary Care Provider Unav ailable Encounter Details Date Type Department Care Team Description 12/28/2016 Refill OBGYN - [place] [address] [place] [address] Eliseo Rodríguez MD Social History Tobacco Use Types Packs/Day [...] encounter Miscellaneous Notes * Telephone Encounter - Eliseo Rodríguez MD - 12/28/2016 9:31 AM EDT This patient has not been seen here since 07/2015. No scheduled appointments. I am not going to refill this again until she establishes an appointment for exam. * Telephone Encounter - Lirba Rios M.A. - 12/28/2016 8:50 AM EDT Please review in provider absence. CMB * Telephone Encounter - Libra Rios M.A. - 12/28/2016 8:49 AM EDTFrom: Deyanira Stewart To: Eliseo Rodríguez MD Sent: 12/28/2016 1:16 AM EDT Subject: Medication Renewal Request Original authorizing provider: MD Deyanira Carreon would like a refill of the following medications: valacyclovir (VALTREX) 500 MG tablet [Eliseo Rodríguez MD] [facility] [address] [place], [place] [address] Comment: documented in this encounter Plan of Treatment Not on file documented as of this encounter Visit Diagnoses Not on filedocumented in this encounter Care Teams Photocomposing Machine Operator Relationship Specialty Start Date End Date Susannah Rendon DO PCP - General Internal Medicine 07/01/15 05/05/19 Siddhartha Oakes MD [address] [place] [address] PCP - General Internal Medicine 05/06/19 01/12/20 Martha Grey APRN [address] [place] [address] PCP - General Internal Medicine 01/13/20 01/19/20 Martha Grey APRN [address] [place] [address] PCP - General Internal Medicine 01/20/20 05/16/22 Mike Burns NP [address] [place] [address] PCP - General Family Practice 05/17/22 11/20/22 Martha Grey, NAV[employer] SENIOR OFFICER [address] [place] [address] PCP - General Internal Medicine 11/21/22 documented as of this encounter
--- OUTSIDE RECORDS SUMMARY | 2024-11-11 07:55 | XMS_ITS | Clinical Summary ---
Author Organization [facility] Address [address] [place] [address] Care Team Providers Care Service Now Developer Name Role Phone Radha Martel Primary Care Provider [phone] Allergies Active Allergy Reactions Criticality Noted Date Comments Adhesive Unknown 01/17/2020 tape Clindamycin Hcl Anaphylaxis High 10/23/2011 Tapentadol Rash High 08/04/2014 Venlafaxine Unknown 06/01/2020 Suicidal ideation Medications valACYclovir (VALTREX) 500 mg tablet Take 1 tablet by mouth daily. 1 Active triamcinolone (NASACORT) 55 mcg nasal inhaler U 2 SPRAYS IEN D 0 Active Mi-Acid Gas Relief,simethic on, 80 mg chewable tablet WELDER OXYHYDROGEN ONE T Q 6 H PRN 0 [...] series) 01/10/2067 Insurance HSNO/FREE CARE Care Teams Service Now Developer Relationship Specialty Start Date End Date Radha Martel [address] [place] [address] PCP - General Internal Medicine 03/30/24
--- OUTSIDE RECORDS SUMMARY | 2024-11-11 07:55 | XMS_ITS | Encounter Summary ---
Author Organization [facility] Address [address] [place] [address] Care Team Providers Care Negative Turner Apprentice Name Role Phone Martha Gery APRN Primary Care Provider Unav ailable Mike Burns NP Primary Care Provider Unavail able Martha Grey APRN Primary Care Provider Unav ailable Encounter Details Date Type Department Care Team Description 06/07/2020 [facility] Medical Records [address] [place] [address] Abstract, Provider Social History Tobacco Use Types [...] on filedocumented in this encounter Care Teams Negative Turner Apprentice Relationship Specialty Start Date End Date Martha Grey APRN PCP - General Internal Medicine 01/20/20 05/16/22 Mike Burns NP PCP - General Family Practice 05/17/22 11/20/22 Martha Grey APRN PCP - General Internal Medicine 11/21/22 documented as of this encounter
--- OUTSIDE RECORDS SUMMARY | 2024-11-11 07:55 | XMS_ITS | Encounter Summary ---
Author Organization [facility] Address [address] [place] [address] Care Team Providers Care Punch Card Operator Name Role Phone Emerald Yu MD Primary Care Provider Unavailable Oj Boyceo, Susannah DO Primary Care Pro vider Unavailable Emerald uY MD Primary Care Provider Unavailable Krakoopal Boyceo, Susannah DO Primary Care Pro vider Unavailable Siddhartha Oakes MD Primary Care Provider Martha Grey APRN Primary Care Provider Unav ailable Martha Grey APRN Primary Care Provider Unav ailable Mike Burns NP Primary Care Provider Unavail able Martha Grey APRN Primary Care Provider Unav ailable Encounter Details Date Type Department Care Team Description 06/09/2014 Director Environmental Report Medical Records [address] [place] [address] Keysha Martinez MD Social History Tobacco Use Types Packs/Day [...] on filedocumented in this encounter Care Teams Punch Card Operator Relationship Specialty Start Date End Date Emerald Yu MD PCP - General Internal Medicine 12/18/1302/04 Susannah Rendon DO PCP - General Internal Medicine 02/14/15 05/09/15 Emerald Yu MD PCP - General Internal Medicine 05/10/1506/08 Susannah Rendon DO PCP - General Internal Medicine 07/01/15 05/05/19 Siddhartha Oakes MD [address] [place] [address] PCP - General Internal Medicine 05/06/19 01/12/20 Martha Grey APRN [address] [place] [address] PCP - General Internal Medicine 01/13/20 01/19/20 Martha Grey APRN [address] [place] [address] PCP - General Internal Medicine 01/20/20 05/16/22 Mike Burns NP [address] [place] [address] PCP - General Family Practice 05/17/22 11/20/22 Martha Grey APRN [address] [place] [address] PCP - General Internal Medicine 11/21/22 documented as of this encounter
--- OUTSIDE RECORDS SUMMARY | 2024-11-11 07:55 | XMS_ITS | Encounter Summary ---
Author Organization [facility] Address [address] [place] [address] Care Team Providers Care Web Master Name Role Phone Radha Martel PA-C Primary Care Provi mckenna Vinod Robles MD Unavailable [phone] Reason for Referral * Cardiovascular Test (Routine) - Pending Review Specialty Diagnoses / Procedures Referred By Contac t Referred To Contact Diagnoses Heart palpitations Procedures Cardiac Event/Loop Monitor Antonio Puente MD [address] [place] [address] Referral ID Status Reason Start Date Expiration Date V isits Requested Visits Authorized [id number] Pending Review 10/29/2024 10/30/2025 1 1 * Cardiovascular Test (Routine) - Pending Review Specialty Diagnoses / Procedures Referred By Contac t Referred To Contact Diagnoses Heart palpitations S/P repair of PDA Procedures Echocardiogram (TTE) Comprehensive (Contrast PRN) Antonio Puente MD [address] [place], [place] [address] Referral ID Status Reason Start Date Expiration Date V isits Requested Visits Authorized [id number] Pending Review 10/29/2024 10/30/2025 1 1 Reason for Visit * Cardiology (Routine) - Closed Specialty Diagnoses / Procedures Referred By Contact Referred To Contact Cardiovascular Disease / Cardiology Diagnoses S/P repair of PDA Radha Martel PA-C [address] [place] [address] [facility] Cardio [id number] [address] [place] [address] Referral ID Status Reason Start Date Expiration Date V isits Requested Visits Authorized [id number] Closed Consult 09/18/2024 09/19/2025 1 1 Encounter Details Date Type Department Care Team (Late st Contact Info) Description 10/29/2024 8:45 AM EST Office [facility] Department of Cardiology [place] [address] [place] [address] Antonio Puente MD [address] [place] [address] Heart palpitations (Primary Dx); S/P repair of [...] been unremarkable. She is seeing a different search engine marketing specialist. Echocardiogram had been ordered. 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 [address] [facility] [address] [place] [address] Radha Martel PA-C [address] [place] [address] 11/25/2024 8:00 AM EST Office Visit [facility] Dermatology [address] [place] [address] Radha Martel PA-C [address] [place] [address] Radu Aleman MD [facility] [address] [place], [place] [address] 11/30/2024 8:45 AM EST Appointment [facility] Physicians Department of Cardiology [place] [address] [place] [phone] Antonio Puente MD [address] [facility] 100 [place], [place] [id number] 12/14/2024 8:30 AM EDT Office Visit [facility] Department of Cardiology [place] [address] [place] [phone] Antonio Puente MD [address] [facility] 100 [place], [place] [address] 02/10/2025 11:40 AM EDT Office Visit [facility] Physicians Department Of Hematology/Oncology [place] [address] [place] [phone] Jhoana Wilkins MD [address] [place] [address] Pending Results Name Type Priority Associated Diagnoses [...] collapse documented in this encounter Care Teams Web Master Relationship Specialty Start Date End Date Radha Martel PA-C [address] [place] [address] PCP - General Internal Medicine 02/24/24 Vinod Robles MD [address] [place] [address] Primary Canning Machine Operator Cardiovascular Disease 09/02/24 documented as of this encounter
--- OUTSIDE RECORDS SUMMARY | 2024-11-11 07:55 | XMS_ITS | Encounter Summary ---
Author Organization [facility] Address [address] [place] [address] Care Team Providers Care Racing Secretary Name Role Phone Susannah Rendon DO Primary Care Pro vider Unavailable Siddhartha Oakes MD Primary Care Provider [phone] Martha Grey APRN Primary Care Provider Unav ailable Martha Grey APRN Primary Care Provider Unav ailable Mike Burns NP Primary Care Provider Unavail able Martha Grey APRN Primary Care Provider Unav ailable Encounter Details Date Type Department Care Team Description 12/10/2016 Walk In Clinic Visit Medical Records [address] [place] [address] Social History Tobacco Use Types Packs/Day Years [...] on filedocumented in this encounter Care Teams Racing Secretary Relationship Specialty Start Date End Date [place] Colasacco, Susannah, DO PCP - General Internal Medicine 07/01/15 05/05/19 Siddhartha Oakes MD [address] [place] [address] PCP - General Internal Medicine 05/06/19 01/12/20 Martha Grey APRN [address] [place] [address] PCP - General Internal Medicine 01/13/20 01/19/20 Martha Grey APRN [address] [place] [address] PCP - General Internal Medicine 01/20/20 05/16/22 Mike Burns NP [address] [place] [address] PCP - General Family Practice 05/17/22 11/20/22 Martha Grey APRN [address] [place] [address] PCP - General Internal Medicine 11/21/22 documented as of this encounter
--- OUTSIDE RECORDS SUMMARY | 2024-11-11 07:55 | XMS_ITS | Encounter Summary ---
Author Organization [facility] Address [address] [place] [address] Care Team Providers Care Chief Engineer'S Helper Name Role Phone Radha Martel PA-C Primary Care Provi mckenna Vinod Robles MD Unavailable Encounter Details Date Type Department Care Team (Late st Contact Info) Description 03/06/2024 Scanned Document [facility] Physicians Department Of Hematology/Oncology [place] [address] [place] [phone] Jhoana Wilkins MD 300 [facility] [address] [place], [place] [address] Social History Tobacco Use Types Packs/Day Years [...] 11/24/2024 11:00 AM EST Office Visit [address] [place] [phone] Radha Martel PA-C [address] [place] [address] 11/25/2024 8:00 AM EST Office Visit [facility] Dermatology [address] [place] [phone] Radha Martel PA-C [address] [place] [address] Radu Aleman MD [address] [place], [place] [address] 11/30/2024 8:45 AM EST Appointment [facility] Department of Cardiology [place] [address] [place] [phone] Antonio Puente MD [address] [place] [address] 12/14/2024 8:30 AM EDT Office Visit [facility] Department of Cardiology [place] [address] [place] [phone] Antonio Puente MD [address] [place] [address] 02/10/2025 11:40 AM EDT Office Visit [facility] Department Of Hematology/Oncology [place] [address] [place] [phone] Jhoana Wilkins MD [address] [facility] [address] [place], [place] [address] documented as of this encounter Procedures Procedure Name Priority Date/Time Associated Diagnosis Comments LAB RESULT 03/06/2024 7:06 PM EDT documented in this encounter Results * LAB RESULT (03/06/2024 7:06 PM EDT) Jhoana Wilkins MD HX AMB PROCEDURES documented in this encounter Visit Diagnoses Not on filedocumented in this encounter Care Teams Chief Engineer'S Helper Relationship Specialty Start Date End Date Radha Martel PA-C [address] [place] [address] PCP - General Internal Medicine 02/24/24 Vinod Robles MD [address] [place] [address] Primary Cell Lead Cardiovascular Disease 09/02/24 documented as of this encounter
--- OUTSIDE RECORDS SUMMARY | 2024-11-11 07:55 | XMS_ITS | Encounter Summary ---
Author Organization [facility] Address [address] [place], [place] [id number] Care Team Providers Care Scrap Dealer Name Role Phone Radha Martel PA-C Primary Care Provi mckenna Vinod Robles MD Unavailable [phone] Encounter Details Date Type Department Care Team (Late st Contact Info) Description 09/15/2024 Scanned Document [address] [phone] Otolaryngology, Scan Social History Tobacco Use Types [...] Description 11/24/2024 11:00 AM EST Office Visit [address] [phone] Radha Martel PA-C [address] [place] [address] 11/25/2024 8:00 AM EST Office Visit [facility] Dermatology [address] [place] [address] Radha Martel PA-C [address] [place] [address] Radu Aleman MD [address] [place] [address] 11/30/2024 8:45 AM EST Appointment [facility] Physicians Department of Cardiology [place] [address] [place] [phone] Antonio Puente MD [address] [place] [address] 12/14/2024 8:30 AM EDT Office Visit [facility] Department of Cardiology [place] [address] [place] [phone] Antonio Puente MD [address] [place] [address] 02/10/2025 11:40 AM EDT Office Visit [facility] Department Of Hematology/Oncology [place] [address] [place] [phone] Jhoana Wilkins MD [address] [place], [place] [phone] documented as of this encounter Visit Diagnoses Not on filedocumented in this encounter Care Teams Scrap Dealer Relationship Specialty Start Date End Date Radha Martel PA-C [address] [place] [address] PCP - General Internal Medicine 02/24/24 Vinod Robles MD [address] [place] [address] Primary Director Of Retail Marketing Cardiovascular Disease 09/02/24 documented as of this encounter
--- OUTSIDE RECORDS SUMMARY | 2024-11-11 07:55 | XMS_ITS | Encounter Summary ---
Author Organization [facility] Address [address] [place] [address] Care Team Providers Care Services Rep Name Role Phone Martha Grey APRN Primary Care Provider Unav ailable Mike Burns NP Primary Care Provider Unavail able Martha Grey APRN Primary Care Provider Unav ailable Reason for Visit * Reason Comments E-prescribe Rx Request Encounter Details Date Type Department Care Team Description 02/24/2021 Refill Adult Medicine [address] [address] Martha Grey APRN E-prescribe Rx Request Social History Tobacco Use [...] encounter Miscellaneous Notes * Telephone Encounter - Felicia Villasenor C.M.A. - 02/24/2021 2:23 PM EDT Angelica 02/15/2021 no pended appt Lab Results Component Value Date NA 140 02/15/2021 K 3.9 02/15/2021 CO2 27 02/15/2021 CL 106 02/15/2021 BUN 14 02/15/2021 CREAT 0.73 02/15/2021 GLU 77 02/15/2021 CA 9.0 02/15/2021 GFR > 60 02/15/2021 * Telephone Encounter - Kinga Mae - 02/24/2021 9:56 AM EDT Patient would like script to be: E-PRESCRIBED/FAXED TO PHARMACY WHEN WAS THE PATIENT'S LAST APPOINTMENT IN ADULT MEDICINE? 02/15/21 WHEN WAS THE LAST TIME THE PATIENT SAW THEIR PCP? Same as above Does patient have an upcoming appointment? No (THE MEDICATION REQUESTED IS ON THE MED LIST ABOVE) All of the medications requested were on the CURRENT MEDS list Did you check the Pharmacy information above?: YES Patient wants: 30 -day supply Is this a mail order prescription request ? NO If the refill is from a FAXED refill request what is the RX # listed on the fax? N/A Patients current insurance carrier is: [facility] / Plan: CC-KRISTYN SILVER TYPE 2 / Product Type: HMO [id number] documented in this encounter Plan of Treatment Not on file documented as of this encounter Visit Diagnoses Not on filedocumented in this encounter Care Teams Services Rep Relationship Specialty Start Date End Date Martha Grey APRN PCP - General Internal Medicine 01/20/20 05/16/22 Mike Burns NP PCP - General Family Practice 05/17/22 11/20/22 Martha Grey APRN PCP - General Internal Medicine 11/21/22 documented as of this encounter
--- OUTSIDE RECORDS SUMMARY | 2024-11-11 07:55 | XMS_ITS | Encounter Summary ---
Author Organization [facility] Address [address] [phone] Care Team Providers Care Building Equipment Inspector Name Role Phone Radha Martel Primary Care Provider Encounter Details Date Type Department Care Team (Late st Contact Info) Description 12/02/2020 myChart Message [facility]rology Clinic [address] [place] [address] [phone] Kalie Clark MD [address] [place] [address] [phone] RE: Non-Urgent Medical Question Social History Tobacco [...] on filedocumented in this encounter Care Teams Building Equipment Inspector Relationship Specialty Start Date End Date Radha Martel [address] [place] [address] PCP - General Internal Medicine 03/30/24 documented as of this encounter
--- OUTSIDE RECORDS SUMMARY | 2024-11-11 07:55 | XMS_ITS | Encounter Summary ---
Author Organization [facility] Address [address] [place] [address] Care Team Providers Care Wine Blender Name Role Phone Radha Martel PA-C Primary Care Provi mckenna Vinod Robles MD Unavailable Encounter Details Date Type Department Care Team (Late st Contact Info) Description 10/29/2024 Scanned Document [address] [place] [phone] Provider, Generic Social History Tobacco Use [...] 11/24/2024 11:00 AM EST Office Visit [address] [phone] Radha Martel PA-C [address] [place] [phone] 11/25/2024 8:00 AM EST Office Visit [address] [place] [address] Radha Martel PA-C [address] [place] [address] Radu Aleman MD [address] [place], [place] [phone] 11/30/2024 8:45 AM EST Appointment [facility] Physicians Department of Cardiology [place] [address] [place] [phone] Antonio Puente MD [address] [place] [address] 12/14/2024 8:30 AM EDT Office Visit [facility] Department of Cardiology [place] [address] [place] [phone] Antonio Puente MD [address] [place] [address] 02/10/2025 11:40 AM EDT Office Visit [facility] Department Of Hematology/Oncology [place] [address] [place] [phone] Jhoana Wilkins MD [address] [place], [place] [phone] documented as of this encounter Visit Diagnoses Not on filedocumented in this encounter Care Teams Wine Blender Relationship Specialty Start Date End Date Radha Martel PA-C [address] [place] [address] PCP - General Internal Medicine 02/24/24 Vinod Robles MD [address] [place] [address] Primary Farmworker Cardiovascular Disease 09/02/24 documented as of this encounter
--- OUTSIDE RECORDS SUMMARY | 2024-11-11 07:55 | XMS_ITS | Encounter Summary ---
Author Organization [facility] Address [address] [place] [address] Care Team Providers Care Senior Water/Wastewater Engineer Name Role Phone Martha Grey APRN Primary Care Provider Unav ailable Mike Burns NP Primary Care Provider Unavail able Martha Grey APRN Primary Care Provider Unav ailable Encounter Details Date Type Department Care Team Description 05/11/2020 Orders Only Medical Records [address] [place] [address] Abstract, Provider Social History Tobacco Use Types [...] on filedocumented in this encounter Care Teams Senior Water/Wastewater Engineer Relationship Specialty Start Date End Date Martha Grey APRN PCP - General Internal Medicine 01/20/20 05/16/22 Mike Burns NP PCP - General Family Practice 05/17/22 11/20/22 Martha Grey APRN PCP - General Internal Medicine 11/21/22 documented as of this encounter
--- OUTSIDE RECORDS SUMMARY | 2024-11-11 07:55 | XMS_ITS | Encounter Summary ---
Author Organization [facility] Address [address] [place] [address] Care Team Providers Care Medicine And Health Service Manager Name Role Phone Martha Grey APRN Primary Care Provider Unav ailable Mike Burns NP Primary Care Provider Unavail able Martha Grey APRN Primary Care Provider Unav ailable Encounter Details Date Type Department Care Team Description 05/09/2020 Hospital Medical Records [address] [place] [phone] [place] [address] Social History Tobacco Use Types Packs/Day Years [...] on filedocumented in this encounter Care Teams Medicine And Health Service Manager Relationship Specialty Start Date End Date Martha Grey APRN PCP - General Internal Medicine 01/20/20 05/16/22 Mike Burns NP PCP - General Family Practice 05/17/22 11/20/22 Martha Grey APRN PCP - General Internal Medicine 11/21/22 documented as of this encounter
--- OUTSIDE RECORDS SUMMARY | 2024-11-11 07:55 | XMS_ITS | Encounter Summary ---
Author Organization [facility] Address [address] [place] [address] Care Team Providers Care Optical Goods Worker Name Role Phone Radha Martel PA-C Primary Care Provi mckenna Vinod Robles MD Unavailable [phone] Encounter Details Date Type Department Care Team (Late st Contact Info) Description 10/29/2024 11:45 AM EST Hospital Encounter [facility] [address] [place] [phone] Social History Tobacco Use Types Packs/Day Years [...] Description 11/24/2024 11:00 AM EST Office Visit [address] [phone] Radha Martel PA-C [address] [place], [place] [phone] 11/25/2024 8:00 AM EST Office Visit [facility] Dermatology [address] [place] [phone] Radha Martel PA-C [address] [place] [address] Radu Aleman MD [address] [place], [place] [address] 11/30/2024 8:45 AM EST Appointment [facility] Department of Cardiology [place] [address] [place] [phone] Antonio Puente MD [address] [place] [address] 12/14/2024 8:30 AM EDT Office Visit [facility] Department of Cardiology [place] [address] [place] [phone] Antonio Puente MD [address] [place] [address] 02/10/2025 11:40 AM EDT Office Visit [facility] Department Of Hematology/Oncology [place] [address] [place] [phone] Jhoana Wilkins MD 300 [facility] [address] [place], [place] [phone] documented as of this encounter Procedures Procedure [...] your patient to us, Jassi Boone MD [id number] (Electronically Signed - 10/29/2024 12:28) Copy: PATIENT [...] Boone MD 10/29/2024 12:28 PM EST RPWorkstation: [id number] Thank you for referring your patient to us, Jassi Boone MD [id number] (Electronically Signed - 10/29/2024 12:28) Copy: PATIENT , JANAK [place] DIAGNOSTIC IMAGI NG ORDERABLES documented in this encounter Visit Diagnoses Not on filedocumented in this encounter Care Teams Optical Goods Worker Relationship Specialty Start Date End Date Radha Martel PA-C [address] [place] [address] PCP - General Internal Medicine 02/24/24 Vinod Robles MD [address] [place] [address] Primary Optical Instrument Assembler Cardiovascular Disease 09/02/24 documented as of this encounter
--- OUTSIDE RECORDS SUMMARY | 2024-11-11 07:55 | XMS_ITS | Encounter Summary ---
Author Organization [facility] Address [address] [place] [address] Care Team Providers Care Laboratory Chemical Assistant Name Role Phone Martha Grey APRN Primary Care Provider Unav ailable Mike Burns NP Primary Care Provider Unavail able Martha Grey APRN Primary Care Provider Unav ailable Reason for Visit * Reason Onset Date Comments Provider Call Back 03/07/2021 Encounter Details Date Type Department Care Team Description 03/07/2021 Telephone Adult Medicine [address] [address] Martha Grey APRN Provider Call Back Social [...] have Coronavirus / COVID-19? No / Unsure 03/09/2021 2:06 PM EDT documented as of this encounter Miscellaneous Notes * Telephone Encounter - Ingrid Price APRN - 03/07/2021 11:42 AM EDT Please call patient Urine Oxalate still pending, would like to wait until all labs resulted * Telephone Encounter - Madison Rincon M.A. - 03/07/2021 11:32 AM EDT PCP is off today, forward to covering, please advise, thank you * Telephone Encounter - Jackie Alcazar - 03/07/2021 10:32 AM EDT Caller requesting call back from provider: Is the caller the patient? YES If caller is not the patient, what is the callers name? N/A Callers relationship to patient? N/A If person calling is not the patient themselves, is there a verbal release in FYI or permanent comments for this person: NO Reason for call back: Patient is asking for a call back to discuss her recent 24hr urine results, she knows they were not ideal but needs a little more explanation on what they mean exactly and what her next steps are. Caller offered to speak with the nurse for assistance: YES Response: Patient offered to speak with nurse for assistance and patient agreed. Message forwarded to nurse.. documented in this encounter Plan of Treatment Not on file documented as of this encounter Visit Diagnoses Not on filedocumented in this encounter Care Teams Laboratory Chemical Assistant Relationship Specialty Start Date End Date Martha Grey APRN PCP - General Internal Medicine 01/20/20 05/16/22 Mkie Burns NP PCP - General Family Practice 05/17/22 11/20/22 Martha Grey APRN PCP - General Internal Medicine 11/21/22 documented as of this encounter
--- OUTSIDE RECORDS SUMMARY | 2024-11-11 07:55 | XMS_ITS | Encounter Summary ---
Author Organization [facility] Address [address] [place] [address] Care Team Providers Care Plasterer Helper Name Role Phone Radha Martel Primary Care Provider [phone] Encounter Details Date Type Department Care Team (Late st Contact Info) Description 12/02/2020 Orders Only [facility] Neurology Clinic [address] [place] [address] [phone] Kalie Clark MD [address] [place] [address] [phone] Social History Tobacco Use Types Packs/Day Years [...] this encounter Procedures * Due to [place] law, this organization might not be sharing negative HIV tests. Procedure Name Priority Date/Time Associated Diagnosis Comments NEURODIAGNOSTIC - SCANNED Routine 04/06/2020 documented in this encounter Results * Due to [place] law, this organization might not be sharing negative HIV tests. * NEURODIAGNOSTIC - SCANNED (04/06/2020) Kalie Clark MD SCANNED PROCEDURES Final Res ult documented in this encounter Visit Diagnoses Not on filedocumented in this encounter Care Teams Plasterer Helper Relationship Specialty Start Date End Date Radha Martel [address] [place] [address] PCP - General Internal Medicine 03/30/24 documented as of this encounter
--- OUTSIDE RECORDS SUMMARY | 2024-11-11 07:55 | XMS_ITS | Encounter Summary ---
Author Organization [facility] Address [address] [place] [address] Care Team Providers Care Fittings Tightener Name Role Phone Radha Martel PA-C Primary Care Provi mckenna Vinod Robles MD Unavailable [phone] Encounter Details Date Type Department Care [...] 11/24/2024 11:00 AM EST Office Visit [address] [phone] Radha Martel PA-C [address] [place] [address] 11/25/2024 8:00 AM EST Office Visit [facility] Dermatology [address] [place] [address] Radha Martel PA-C [address] [place] [address] Radu Aleman MD [address] [place] [address] 11/30/2024 8:45 AM EST Appointment [facility] Department of Cardiology [place] [address] [place] [address] Antonio Puente MD [address] [place] [address] 12/14/2024 8:30 AM EDT Office Visit [facility] Department of Cardiology [place] [address] [place] [phone] Antonio Puente MD [address] [place] [address] 02/10/2025 11:40 AM EDT Office Visit [facility] Department Of Hematology/Oncology [place] [address] [place] [phone] Jhoana Wilkins MD [address] [facility] [address] [place] [address] documented as of this encounter Visit Diagnoses Not on filedocumented in this encounter Care Teams Fittings Tightener Relationship Specialty Start Date End Date Radha Martel PA-C [address] [place] [address] PCP - General Internal Medicine 02/24/24 Vinod Robles MD [address] [place] [address] Primary Cattle Broker Cardiovascular Disease 09/02/24 documented as of this encounter
--- OUTSIDE RECORDS SUMMARY | 2024-11-11 07:55 | XMS_ITS | Referral Summary ---
Author Organization [facility] Address [address] [place] [address] Care Team Providers Care Cro Name Role Phone Radha Martel Primary Care Provider [phone] Allergies Active Allergy Reactions Criticality Noted Date Comments Adhesive Unknown 01/17/2020 tape Clindamycin Hcl Anaphylaxis High 10/23/2011 Tapentadol Rash High 08/04/2014 Venlafaxine Unknown 06/01/2020 Suicidal ideation Medications valACYclovir (VALTREX) 500 mg tablet Take 1 tablet by mouth daily. 1 Active triamcinolone (NASACORT) 55 mcg nasal inhaler U 2 SPRAYS IEN D 0 Active Mi-Acid Gas Relief,simethic on, 80 mg chewable tablet LEATHER STAMPER ONE T Q 6 H PRN 0 [...] on file Insurance HSNO/FREE CARE Care Teams Cro Relationship Specialty Start Date End Date Radha Martel [address] [place] [address] PCP - General Internal Medicine 03/30/24
--- OUTSIDE RECORDS SUMMARY | 2024-11-11 07:55 | XMS_ITS | Encounter Summary ---
Author Organization [facility] Address [address] [place] [address] Care Team Providers Care Chargemaster Specialist Name Role Phone Martha Grey APRN Primary Care Provider Unav ailable Mike Burns NP Primary Care Provider Unavail able Martha Grey APRN Primary Care Provider Unav ailable Encounter Details Date Type Department Care Team Description 05/16/2020 Refill Rheumatology - [address] [address] Win Swanson PA Social History Tobacco Use Types Packs/Day Years [...] encounter Miscellaneous Notes * Telephone Encounter - Win Swanson PA-C - 05/16/2020 4:02 PM EDT Single refill given, she would need an appointment, telehealth ok, for further refills. Thank you. * Telephone Encounter - Tiffany Anderson M.A. - 05/16/2020 3:54 PM EDT Last Appt: 12/01 No upcoming appt. documented in this encounter Plan of Treatment Not on file documented as of this encounter Visit Diagnoses Not on filedocumented in this encounter Care Teams Chargemaster Specialist Relationship Specialty Start Date End Date Martha Grey APRN PCP - General Internal Medicine 01/20/20 05/16/22 Mike Burns NP PCP - General Family Practice 05/17/22 11/20/22 Martha Grey APRN PCP - General Internal Medicine 11/21/22 documented as of this encounter
--- OUTSIDE RECORDS SUMMARY | 2024-11-11 07:55 | XMS_ITS | Encounter Summary ---
Author Organization [facility] Address [address] [place] [address] Care Team Providers Care Counter Sales Person Name Role Phone Martha Grey APRN Primary Care Provider Unav ailable Mike Burns NP Primary Care Provider Unavail able Martha Grey APRN Primary Care Provider Unav ailable Encounter Details Date Type Department Care Team Description 04/19/2020 Telephone Allergy [place] [address] [place] [address] Marilee Olivas MD Social History Tobacco Use Types Packs/Day [...] encounter Miscellaneous Notes * Telephone Encounter - Sandhya Baker - 04/19/2020 3:57 PM EDT Left message for patient to call and reschedule her 05/17 appointment to telehealth documented in this encounter Plan of Treatment Not on file documented as of this encounter Visit Diagnoses Not on filedocumented in this encounter Care Teams Counter Sales Person Relationship Specialty Start Date End Date Martha Grey APRN PCP - General Internal Medicine 01/20/20 05/16/22 Mike Burns NP PCP - General Family Practice 05/17/22 11/20/22 Martha Grey APRN PCP - General Internal Medicine 11/21/22 documented as of this encounter
--- OUTSIDE RECORDS SUMMARY | 2024-11-11 07:55 | XMS_ITS | Encounter Summary ---
Author Organization [facility] Address [address] [place] [address] Care Team Providers Care Cardiopulmonary Supervisor Name Role Phone Emerald Yu MD Primary Care Provider Unavailable Oj Boyceo, Susannah DO Primary Care Pro vider Unavailable Emerald Yu MD Primary Care Provider Unavailable Oj Rangel, Susannah DO Primary Care Pro vider Unavailable Siddhartha Oakes MD Primary Care Provider [phone] Martha Grey APRN Primary Care Provider Unav ailable Martha Grey APRN Primary Care Provider Unav ailable Mike Burns NP Primary Care Provider Unavail able Martha Grey APRN Primary Care Provider Unav ailable Reason for Visit * Reason Onset Date Comments Medical Records 08/04/2014 cn & egd Encounter Details Date Type Department Care Team Description 08/04/2014 Telephone Gastroenterology - [address] [address] Alin Richards PA-C Medical Records (cn & egd) Social History Tobacco Use Types Packs/Day [...] encounter Miscellaneous Notes * Telephone Encounter - Francesca EspositoP.N. - 08/23/2014 8:47 AM EST EGD Received./dg Also received Path report form CN * Telephone Encounter - Francesca Hopper.P.N. - 08/05/2014 3:13 PM EDT Received CN report but NOT Upper Endoscopy or any related path reports, At the end of the CN reporthe stated the Upper Endoscopy was to follow. So we know both tests were done. Called them & left 2 messages re the above. NEED: EGD Report & Path Reports * Telephone Encounter - Francesca Hopper.P.N. - 08/04/2014 9:24 AM EDT CN & EGD REPORTS DONE ABOUT 2009./DG documented in this encounter Plan of Treatment Not on file documented as of this encounter Visit Diagnoses Not on filedocumented in this encounter Care Teams Cardiopulmonary Supervisor Relationship Specialty Start Date End Date Emerald Yu MD PCP - General Internal Medicine 12/18/1302/04 Susannah Rendon DO PCP - General Internal Medicine 02/14/15 05/09/15 Emerald Yu MD PCP - General Internal Medicine 05/10/1506/08 Susannah Rendon DO PCP - General Internal Medicine 07/01/15 05/05/19 Siddhartha Oakes MD [address] [place] [address] PCP - General Internal Medicine 05/06/19 01/12/20 Martha Grey APRN [address] [place] [address] PCP - General Internal Medicine 01/13/20 01/19/20 Martha Grey APRN [address] [place] [address] PCP - General Internal Medicine 01/20/20 05/16/22 Mike Burns NP [address] [place] [address] PCP - General Family Practice 05/17/22 11/20/22 Martha Grey APRN [address] [place] [address] PCP - General Internal Medicine 11/21/22 documented as of this encounter
--- OUTSIDE RECORDS SUMMARY | 2024-11-11 07:55 | XMS_ITS | Encounter Summary ---
Author Organization [facility] Address [address] [place] [address] Care Team Providers Care Controls Engineer Name Role Phone Radha Martel PA-C Primary Care Provi mckenna Vinod Robles MD Unavailable [phone] Reason for Visit * Reason Comments Referral Encounter Details Date Type Department Care Team (Late st Contact Info) Description 07/16/[address] [address] Radha Martel PA-C [address] [place] [address] Referral Social History Tobacco Use Types Packs/Day [...] Description 11/24/2024 11:00 AM EST Office Visit [address] [place] [address] Radha Martel PA-C [address] [place] [address] 11/25/2024 8:00 AM EST Office Visit [facility] Dermatology [address] [place] [phone] Radha Martel PA-C [address] [place] [address] Radu Aleman MD 399 [facility] 260 [place] [address] 11/30/2024 8:45 AM EST Appointment [facility] Department of Cardiology [place] [address] [place] [address] Antonio Puente MD [address] [facility] 100 [place] [address] 12/14/2024 8:30 AM EDT Office Visit [facility] Department of Cardiology [place] [address] [place] [address] Antonio Puente MD [address] [facility] 100 [place] [address] 02/10/2025 11:40 AM EDT Office Visit [facility] Department Of Hematology/Oncology [place] [address] [place] [address] Jhoana Wilkins MD 300 [facility] [address] [place], [place] [address] documented as of this encounter Visit Diagnoses Not on filedocumented in this encounter Care Teams Controls Engineer Relationship Specialty Start Date End Date Radha Martel PA-C [address] [place] [address] PCP - General Internal Medicine 02/24/24 Vinod Robles MD [address] [place] [address] Primary Delicatessen Store Manager Cardiovascular Disease 09/02/24 documented as of this encounter
--- OUTSIDE RECORDS SUMMARY | 2024-11-11 07:55 | XMS_ITS | Encounter Summary ---
Author Organization [facility] Address [address] [place] [address] Care Team Providers Care Microelectronics Technician Name Role Phone Susannah Rendon DO Primary Care Pro vider Unavailable Siddhartha Oakes MD Primary Care Provider [phone] Martha Grey APRN Primary Care Provider Unav ailable Martha Grey APRN Primary Care Provider Unav ailable Mike Burns NP Primary Care Provider Unavail able Martha Grey APRN Primary Care Provider Unav ailable Encounter Details Date Type Department Care Team Description 01/30/2017 Refill OBGYN - [place] [address] [place], [place] [phone] de Ariel Anderson MD [address] [place] [address] Social History Tobacco Use Types Packs/Day Years [...] on filedocumented in this encounter Care Teams Microelectronics Technician Relationship Specialty Start Date End Date Susannah Rendon DO PCP - General Internal Medicine 07/01/15 05/05/19 Siddhartha Oakes MD [address] [place] [address] PCP - General Internal Medicine 05/06/19 01/12/20 Martha Grey APRN [address] [place] [address] PCP - General Internal Medicine 01/13/20 01/19/20 Martha Grey APRN [address] [place] [address] PCP - General Internal Medicine 01/20/20 05/16/22 Mike Burns NP [address] [place] [address] PCP - General Family Practice 05/17/22 11/20/22 Martha Grey APRN [address] [place] [address] PCP - General Internal Medicine 11/21/22 documented as of this encounter
--- OUTSIDE RECORDS SUMMARY | 2024-11-11 07:55 | XMS_ITS | Encounter Summary ---
Author Organization [facility] Address [address] [place] [address] Care Team Providers Care Staff Radiographer Name Role Phone Radha Martel Primary Care Provider [phone] Encounter Details Date Type Department Care Team (Late st Contact Info) Description 11/03/2020 myChart Message [facility] [address] [place], [place] [phone] Kalie Clark MD [address] [place], [place] [phone] Non-Urgent Medical Question Social History Tobacco Use [...] on filedocumented in this encounter Care Teams Staff Radiographer Relationship Specialty Start Date End Date Radha Martel [address] [place] [address] PCP - General Internal Medicine 03/30/24 documented as of this encounter
--- OUTSIDE RECORDS SUMMARY | 2024-11-11 07:55 | XMS_ITS | Encounter Summary ---
Author Organization [facility] Address [address] [place] [address] Care Team Providers Care Ditch Inspector Name Role Phone Emerald Yu MD Primary Care Provider Unavailable Oj Boyceo, Susannah DO Primary Care Pro vider Unavailable Emerald Yu MD Primary Care Provider Unavailable Oj Rangel, Susannah DO Primary Care Pro vider Unavailable Siddhartha Oakes MD Primary Care Provider [phone] Martha Grey APRN Primary Care Provider Unav ailable Mratha Grey APRN Primary Care Provider Unav ailable Mike Burns NP Primary Care Provider Unavail able Martha Grey APRN Primary Care Provider Unav ailable Encounter Details Date Type Department Care Team Description 07/28/2014 Television Engineering Teacher Report Medical Records [address] [place] [address] Bimal Damon Social History Tobacco Use Types Packs/Day Years [...] on filedocumented in this encounter Care Teams Ditch Inspector Relationship Specialty Start Date End Date Emerald Yu MD PCP - General Internal Medicine 12/18/1302/04 Susannah Rendon DO PCP - General Internal Medicine 02/14/15 05/09/15 Emerald Yu MD PCP - General Internal Medicine 05/10/1506/08 Susannah Rendon DO PCP - General Internal Medicine 07/01/15 05/05/19 Siddhartha Oakes MD [address] [place] [address] PCP - General Internal Medicine 05/06/19 01/12/20 Martha Grey APRN [address] [place] [address] PCP - General Internal Medicine 01/13/20 01/19/20 Martha Grey APRN [address] [place] [address] PCP - General Internal Medicine 01/20/20 05/16/22 Mike Burns NP [address] [place] [address] PCP - General Family Practice 05/17/22 11/20/22 Martha Grey APRN [address] [place] [address] PCP - General Internal Medicine 11/21/22 documented as of this encounter
--- OUTSIDE RECORDS SUMMARY | 2024-11-11 07:55 | XMS_ITS | Encounter Summary ---
Author Organization [facility] Address [address] [place] [address] Care Team Providers Care Pit Recorder Name Role Phone Martha Grey APRN Primary Care Provider Unav ailable Mike Burns NP Primary Care Provider Unavail able Martha Grey APRN Primary Care Provider Unav ailable Encounter Details Date Type Department Care Team Description 05/06/2020 [facility] Medical Records [address] [place] [address] Jasmine Smith MD [address] [place] [address] [place] [address] Social History Tobacco Use Types Packs/Day Years [...] on filedocumented in this encounter Care Teams Pit Recorder Relationship Specialty Start Date End Date Martha Grey APRN PCP - General Internal Medicine 01/20/20 05/16/22 Glogowski, Mike, FUSION JUNCTURE GRINDER PCP - General Family Practice 05/17/22 11/20/22 Martha Grey APRN PCP - General Internal Medicine 11/21/22 documented as of this encounter
--- OUTSIDE RECORDS SUMMARY | 2024-11-11 07:55 | XMS_ITS | Encounter Summary ---
Author Organization [facility] Address [address] [place] [address] Care Team Providers Care Rehabilitation Program Manager Name Role Phone Susannah Rendon DO Primary Care Pro vider Unavailable Siddhartha Oakes MD Primary Care Provider [phone] Martha Grey APRN Primary Care Provider Unav ailable Martha Grey APRN Primary Care Provider Unav ailable Mike Burns NP Primary Care Provider Unavail able Martha Grey APRN Primary Care Provider Unav ailable Reason for Visit * Reason Onset Date Comments TEST RESULTS 08/04/2015 Encounter Details Date Type Department Care Team Description 08/04/2015 Telephone OBGYN - [place] [address] Ariel Varner MD [address] [place] [address] TEST RESULTS Social History Tobacco Use Types [...] encounter Miscellaneous Notes * Telephone Encounter - Ilene Fernandes R.N. - 08/05/2015 11:38 AM EDT Patient given 's message below. She is unhappy with that answer and feels that this is reckless when she is trying to prevent passing this to her new partner. She is requesting to see/speak to Dr.De Anderson and requests that I transfer her call to [place]. Call transferred per Valerie in [place] to [phone]. * Telephone Encounter - Shelbi Guerrero - 08/05/2015 11:16 AM EDT Returning call to triage - she is at work will try to ans quickly * Telephone Encounter - Ilene Fernandes R.N. - 08/05/2015 11:10 AM EDT Message left for patient to return call to triage. * Telephone Encounter - Kaci Bynum MD - 08/05/2015 10:11 AM EDT I do not put patients on supression immediately after diagnosis. I called in rx for her to treat episodically. If she has more than 4 outbreaks per year then supression is indicated. Please relay this information to the patient. * Telephone Encounter - Ilene Fernandes R.N. - 08/04/2015 3:37 PM EDT Returned pt call - questions answered. * Telephone Encounter - Katie Magaly - 08/04/2015 3:01 PM EDT Patient was speaking to triage earlier and would like to speak with her again OMER please call.. * Telephone Encounter - Ilene Fernandes R.N. 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 We discussed them in depth. She is in a new relationship and would like to start on suppressive medication to help prevent transmission to her partner. She has disclosed and discussed this with him. Is using condoms for protection. Rx set up for 90 day supply for suppression (with extras for in case of outbreak). Instructions given on how to take medication. All questions answered at this time. Will forward to for approval. Pt aware script will be sent tomorrow if appropriate. * Telephone Encounter - Ilene Fernandes R.N. - 08/04/2015 2:07 PM EDT Message left for patient to return call to [facility] Ob triage. * Telephone Encounter - Radha Burciaga M.A. - 08/04/2015 11:43 AM EDT Patient looking for HSV results please review KMM * Telephone Encounter - Lisa Manrique - 08/04/2015 8:39 AM EDT PT would like a nurse to explain results on MYCHART documented in this encounter Plan of Treatment Not on file documented as of this encounter Visit Diagnoses Not on filedocumented in this encounter Care Teams Rehabilitation Program Manager Relationship Specialty Start Date End Date Susannah Rendon DO PCP - General Internal Medicine 07/01/15 05/05/19 Siddhartha Oakes MD [address] [place] [address] PCP - General Internal Medicine 05/06/19 01/12/20 Martha Grey APRN [address] [place] [address] PCP - General Internal Medicine 01/13/20 01/19/20 Martha Grey APRN [address] [place] [address] PCP - General Internal Medicine 01/20/20 05/16/22 Mike Burns NP [address] [place] [address] PCP - General Family Practice 05/17/22 11/20/22 Martha Grey APRN [address] [place] [address] PCP - General Internal Medicine 11/21/22 documented as of this encounter
--- OUTSIDE RECORDS SUMMARY | 2024-11-11 07:55 | XMS_ITS | Encounter Summary ---
Author Organization [facility] Address [address] [place] [address] Care Team Providers Care Clay Products Machine Operator Name Role Phone Emerald Yu MD Primary Care Provider Unavailable Gio Rendonabela DO Primary Care Pro vider Unavailable Emerald Yu MD Primary Care Provider Unavailable Gio Rendonabela DO Primary Care Pro vider Unavailable Siddhartha Oakes MD Primary Care Provider [phone] Martha Grey APRN Primary Care Provider Unav ailable Martha Grey APRN Primary Care Provider Unav ailable Mike Burns NP Primary Care Provider Unavail able Martha Grey APRN Primary Care Provider Unav ailable Encounter Details Date Type Department Care Team Description 03/29/2014 Hospital Medical Records [address] [place] [address] Kali Quiroga MD Social History Tobacco Use Types Packs/Day [...] on filedocumented in this encounter Care Teams Clay Products Machine Operator Relationship Specialty Start Date End Date Emerald uY MD PCP - General Internal Medicine 12/18/1302/04 Susannah Rendon DO PCP - General Internal Medicine 02/14/15 05/09/15 Emerald Yu MD PCP - General Internal Medicine 05/10/1506/08 Susannah Rendon DO PCP - General Internal Medicine 07/01/15 05/05/19 Siddhartha Oakes MD [address] [place] [address] PCP - General Internal Medicine 05/06/19 01/12/20 Martha Grey APRN [address] [place] [address] PCP - General Internal Medicine 01/13/20 01/19/20 Martha Grey APRN [address] [place] [address] PCP - General Internal Medicine 01/20/20 05/16/22 Mike Burns NP [address] [place] [address] PCP - General Family Practice 05/17/22 11/20/22 Martha Grey APRN [address] [place] [address] PCP - General Internal Medicine 11/21/22 documented as of this encounter
--- OUTSIDE RECORDS SUMMARY | 2024-11-11 07:55 | XMS_ITS | Encounter Summary ---
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 CR< 2 sec. Neg anterior draw. [place] test NEG. No LAC. Moves toes well. [...] 11/24/2024 11:00 AM EST Office Visit [address] [place] [address] Radha Martel PA-C [address] [place] [address] 11/25/2024 8:00 AM EST Office Visit [facility] Dermatology [address] [place] [address] Radha Martel PA-C [address] [place] [address] Radu Aleman MD [address] [place] [address] 11/30/2024 8:45 AM EST Appointment [facility] Department of Cardiology [place] [address] [place] [address] Antonio Puente MD [address] [place] [address] 12/14/2024 8:30 AM EDT Office Visit [facility] Department of Cardiology [place] [address] [place] [address] Antonio Puente MD [address] [place] [address] 02/10/2025 11:40 AM EDT Office Visit [facility] Department Of Hematology/Oncology [place] [address] [place] [address] Jhoana Wilkins MD 300 [facility] [address] [place] [address] documented as of this encounter Procedures Procedure [...] your patient to us, Jassi Boone MD [id number] (Electronically Signed - 10/29/2024 12:28) Copy: PATIENT [...] Boone MD 10/29/2024 12:28 PM EST RPWorkstation: [id number] Thank you for referring your patient to us, Jassi Boone MD [id number] (Electronically Signed - 10/29/2024 12:28) Copy: PATIENT , JANAK Longoria IMPardeep DIAGNOSTIC IMAGI NG ORDERABLES documented in this encounter Visit Diagnoses Diagnosis Right foot injury, initial encounter- Primary documented in this encounter Care Teams Surgical Supplies Sterilizer Relationship Specialty Start Date End Date Radha Martel PA-C [address] [place] [address] PCP - General Internal Medicine 02/24/24 Vinod Robles MD [address] [place] [address] Primary Online Editor Cardiovascular Disease 09/02/24 documented as of this encounter
--- OUTSIDE RECORDS SUMMARY | 2024-11-11 07:55 | XMS_ITS | Encounter Summary ---
Author Organization [facility] Address [address] [place] [address] Care Team Providers Care Optical Goods Worker Name Role Phone Radha [place] PA-C Primary Care Provi mckenna Vinod Robles MD Unavailable [phone] Encounter Details Date Type Department Care Team (Late st Contact Info) Description 10/29/2024 Scanned Document [address] [place] [phone] Provider, Generic Social History Tobacco Use [...] Description 11/24/2024 11:00 AM EST Office Visit [address] [phone] Radha [place] PA-C [address] [place] [phone] 11/25/2024 8:00 AM EST Office Visit [address] [place] [address] Radha [place] PA-C [address] [place] [address] Radu Aleman MD [address] [place], [place] [phone] 11/30/2024 8:45 AM EST Appointment [facility] Physicians Department of Cardiology [place] [address] [place] [phone] Antonio Puente MD [address] [place] [address] 12/14/2024 8:30 AM EDT Office Visit [facility] Department of Cardiology [place] [address] [place] [phone] Antonio Puente MD [address] [place] [address] 02/10/2025 11:40 AM EDT Office Visit [facility] Department Of Hematology/Oncology [employer] [address] [place] [phone] Jhoana Wilkins MD [address] [place], [place] [phone] documented as of this encounter Visit Diagnoses Not on filedocumented in this encounter Care Teams Optical Goods Worker Relationship Specialty Start Date End Date Radha [place] PA-C [address] [place] [address] PCP - General Internal Medicine 02/24/24 Vinod Robles MD [address] [place] [address] Primary Hides Soaker Cardiovascular Disease 09/02/24 documented as of this encounter
--- OUTSIDE RECORDS SUMMARY | 2024-11-11 07:55 | XMS_ITS | Encounter Summary ---
Author Organization [facility] Address [address] [place] [address] Care Team Providers Care Program Director Air Talent Name Role Phone Emerald Yu MD Primary Care Provider Unavailable Oj Boyceo, Susannah DO Primary Care Pro vider Unavailable Emerald Yu MD Primary Care Provider Unavailable Oj Boyceo, Susannah DO Primary Care Pro vider Unavailable Siddhartha Oakes MD Primary Care Provider [phone] Martha Grey APRN Primary Care Provider Unav ailable Martha Grey APRN Primary Care Provider Unav ailable Mike [place] NP Primary Care Provider Unavail able Martha Grey APRN Primary Care Provider Unav ailable Reason for Visit * Reason Onset Date Comments TEST RESULTS 07/12/2014 Encounter Details Date Type Department Care Team Description 07/12/2014 Telephone Gastroenterology - [address] [address] Alin Richards PA-C TEST RESULTS Social History Tobacco Use Types [...] encounter Miscellaneous Notes * Telephone Encounter - Alin Richards PA-C - 07/12/2014 11:55 AM EDT Results are not yet completed. I will contact her when they are all back. * Telephone Encounter - Akanksha Mckeon - 07/12/2014 10:51 AM EDT Patient's mychart not working at this time she is asking for her test results documented in this encounter Plan of Treatment Not on file documented as of this encounter Visit Diagnoses Not on filedocumented in this encounter Care Teams Program Director Air Talent Relationship Specialty Start Date End Date Emerald Yu MD PCP - General Internal Medicine 12/18/1302/04 Susannah Rendon DO PCP - General Internal Medicine 02/14/15 05/09/15 Emerald Yu MD PCP - General Internal Medicine 05/10/1506/08 Susannah Rendon DO PCP - General Internal Medicine 07/01/15 05/05/19 Siddhartha Oakes MD [address] [place] [address] PCP - General Internal Medicine 05/06/19 01/12/20 Martha Grey APRN [address] [place] [address] PCP - General Internal Medicine 01/13/20 01/19/20 Martha Grey APRN [address] [place] [address] PCP - General Internal Medicine 01/20/20 05/16/22 [place] NP [address] [place] [address] PCP - General Family Practice 05/17/22 11/20/22 Martha Grey APRN [address] [place] [address] PCP - General Internal Medicine 11/21/22 documented as of this encounter
--- OUTSIDE RECORDS SUMMARY | 2024-11-11 07:55 | XMS_ITS | Encounter Summary ---
Author Organization [facility] Address [address] [place] [address] Care Team Providers Care Saw Straightener Name Role Phone Radha [place] PA-C Primary Care Provi mckenna Vinod Robles MD Unavailable [phone] Encounter Details Date Type Department Care Team (Late st Contact Info) Description 08/19/2024 Scanned Document [address] [phone] Radha [place] PA-C [address] [place] [address] Social History Tobacco Use Types Packs/Day Years [...] Description 11/24/2024 11:00 AM EST Office Visit [address] [phone] Radha [place] PA-C [address] [place] [address] 11/25/2024 8:00 AM EST Office Visit [facility] Dermatology [address] [place] [address] Radha [place] PA-C [address] [place] [address] Radu Aleman MD [address] [facility] [address] [place] [address] 11/30/2024 8:45 AM EST Appointment [facility] Physicians Department of Cardiology [place] [address] [place] [phone] Antonio Puente MD [address] [place] [address] 12/14/2024 8:30 AM EDT Office Visit [facility]3] Physicians Department of Cardiology [place] [address] [place] [phone] Antonio Puente MD [address] [place] [address] 02/10/2025 11:40 AM EDT Office Visit [facility] Department Of Hematology/Oncology [place] [address] [place] [phone] Jhoana Wilkins MD 300 [facility] [address] [place], [place] [address] documented as of this encounter Visit Diagnoses Not on filedocumented in this encounter Care Teams Saw Straightener Relationship Specialty Start Date End Date Radha [place] PA-C [address] [place] [address] PCP - General Internal Medicine 02/24/24 Vinod Robles MD [address] [place] [address] Primary Radiation Control Health Physicist Cardiovascular Disease 09/02/24 documented as of this encounter
--- OUTSIDE RECORDS SUMMARY | 2024-11-11 07:56 | XMS_ITS | Clinical Summary ---
Author Organization [facility] ity Address [address] [place] [address] Care Team Providers Care Yard Manager Name Role Phone Radha [place] Primary Care Provider [phone] Allergies Active Allergy Reactions Criticality Noted Date [...] opinion from another surgeon versus referral to [facility]osis clinic in [place]. She would like referral to the endometriosis [...] LAPAROSCOPY CHOLECYSTECTOMY; Surgeon: Jhonny Canada MD; Location: [facility] MAIN OPERATING ROOM; Service: General; Laterality: N/A; [...] RESULTING AGENCY - 2021 11:45 AM EDT [id number] THINPREP PAP, IMAGED: NEGATIVE FOR SQUAMOUS INTRAEPITHELIAL [...] Recently Relevant to Health Maintenance Care Teams Yard Manager Relationship Specialty Start Date End Date Radha [place] PA [address] [facility] [address] [place] [address] PCP - General 02/24/24
--- OUTSIDE RECORDS SUMMARY | 2024-11-11 07:56 | XMS_ITS | Encounter Summary ---
Author Organization [facility] Address [address] [place] [address] Care Team Providers Care Measurement Operator Name Role Phone Radha [place] PA-C Primary Care Provi mckenna Vinod Robles MD Unavailable [phone] Encounter Details Date Type Department Care Team (Late st Contact Info) Description 10/30/2024 Orders Only [facility] Department Of Hematology/Oncology [place] [address] [place] [address] [facility] [address] [place] [phone] Jhoana Wilkins MD [address] [facility] [address] [place] [address] B12 deficiency (Primary Dx); Fe deficiency anemia; [...] Office Visit [facility] [address] [facility] [address] [place] [address] Radha [place] PA-C [address] [place] [address] 11/25/2024 8:00 AM EST Office Visit [facility] Dermatology [address] [place] [address] Radha [place] PA-C [address] [place] [address] Radu Aleman MD [address] [facility] [address] [place], [place] [address] 11/30/2024 8:45 AM EST Appointment [facility] Physicians Department of Cardiology [place] [address] [place] [phone] Antonio Puente MD [address] [place], [place] [address] 12/14/2024 8:30 AM EDT Office Visit [facility] Physicians Department of Cardiology [place] [address] [place] [phone] Antonio Puente MD [address] [place] [address] 02/10/2025 11:40 AM EDT Office Visit [facility] Department Of Hematology/Oncology [place] [address] [place] [phone] Jhoana Wilkins MD [address] [facility] [address] [place] [address] documented as of this encounter Procedures Procedure [...] LAB BLOOD ORDERABLES Performing Organization Address City/State/[facility] Co de Phone Number [facility] [address] [place] [address] * Iron and Total Iron Binding Capacity [...] MD LAB BLOOD ORDERABLES [facility] [address] * (ABNORMAL) FERRITIN (11/02/2024 10:45 AM EST) Ferritin 224(H) 15 - 150 ng/mL [facility] Blood Blood specimen / Unknown 11/02/2024 10:45 AM EST 11/02/2024 4:23 PM EST Jhoana Wilkins MD LAB BLOOD ORDERABLES Performing Organization Address City/[facility] Hospital/ZIP Co de Phone Number [facility] [address] * (ABNORMAL) Complete Blood Count, with Differential (11/02/2024 10:45 AM EST) Pathologist [facility] WBC 11.76(H) 4.00 - 11.00 Thousand/ uL [...] MD LAB BLOOD ORDERABLES Performing Organization Address City/State/[facility] de Phone Number [facility] [address] [place] [address] documented in this encounter Visit Diagnoses Diagnosis B12 deficiency- Primary Fe deficiency anemia Unspecified iron deficiency anemia Anemia Unspecified anemia documented in this encounter Care Teams Measurement Operator Relationship Specialty Start Date End Date Radha [place] PA-C [address] [place] [address] PCP - General Internal Medicine 02/24/24 Vinod Robles MD [address] [place] [address] Primary [employer] Bi Consultant Cardiovascular Disease 09/02/24 documented as of this encounter
--- OUTSIDE RECORDS SUMMARY | 2024-11-11 07:56 | XMS_ITS | Clinical Summary ---
Author Organization [facility] Address [address] [place] [address] Care Team Providers Care Rubber Flap Cutter Name Role Phone Radha [place] Primary Care Provider [phone] Allergies Active Allergy Reactions Criticality Noted Date [...] opinion from another surgeon versus referral to [facility] Endometriosis clinic in [place]. She would like referral to the endometriosis [...] Advance Directives For more information, please contact: [phone] Latest Code Status on File Code Status [...] way: discussion with patient . Care Teams Rubber Flap Cutter Relationship Specialty Start Date End Date Radha [place] PA [address] [place] [address] PCP - General Physician Vp & General Counsel 02/24/24
--- OUTSIDE RECORDS SUMMARY | 2024-11-11 07:56 | XMS_ITS | Encounter Summary ---
Author Organization [facility] Address [address] [place] [address] Care Team Providers Care Marker Hand Name Role Phone Martha Grey APRN Primary Care Provider Unav ailable Mike [place] NP Primary Care Provider Unavail able Martha Grey APRN Primary Care Provider Unav ailable Encounter Details Date Type Department Care Team Description 09/13/2020 Ict Security Specialist Report Medical Records [address] [place] [address] eKysha [place] MD Social History Tobacco Use Types [...] have Coronavirus / COVID-19? No / Unsure 08/16/2020 2:45 PM EST documented as of this encounter Plan of Treatment Not on file documented as of this encounter Visit Diagnoses Not on filedocumented in this encounter Care Teams Marker Hand Relationship Specialty Start Date End Date Martha Grey APRN PCP - General Internal Medicine 01/20/20 05/16/22 Mike [place] NP PCP - General Family Practice 05/17/22 11/20/22 Martha Grey APRN PCP - General Internal Medicine 11/21/22 documented as of this encounter
--- NOTE | 2024-11-11 08:03 | MHC.OFFVIS ---
Vital Signs 11/11/24 08:04 Height 4 ft 8 in Weight 185 lb BMI 41.5 BP 106/72 Blood Pressure Location Rt brachial Position Sitting Pulse 87 Pulse Source Pulse Oximeter Pulse Oximetry (%) 99 Oxygen Delivery Method Room Air Intake Visit Reasons: Follow Up Allergies clindamycin [CLINDAMYCIN] Allergy (Severe, Verified 11/11/24 08:04) ANAPHALAXIS amoxicillin Allergy (Intermediate, Verified 11/11/24 08:04) Swelling venlafaxine [From Effexor] Allergy (Mild, Verified 11/11/24 08:04) Unknown adhesive tape Allergy (Unknown, Verified 11/11/24 08:04) CHANGES COLOR OF SKIN PERMANENTLY lamotrigine [From Lamictal] Adverse Reaction (Verified 11/11/24 08:04) Unknown Clindamycin HCl Allergy (Unknown, Uncoded 11/10/24 08:34) unknown HPI Comments Details: 34 year old female here for a cognitive disorder evaluation. She is [facility] by her specialist at [facility] for an auto immune disorder , she is being monitored for Reich Syndrome. She is having difficulty with her STM and LTM would like to be evaluated for Cognitive Decline. Has chronic headaches on Ubrelvy PRN and Botox every 3 months. Neuropathy evaluation for fibromyalgia NCS - with Dr. [place], she would like to be evaluated again. Her calves and feet sensations are worse, tingling and numbness, jumpy > then UE. Vapes through the tic-a jesika- for pain and takes gummies 5mg PRN. PFSH Medical History Chronic migraine without aura, intractable, without status migrainosus Chronic migraine without aura [place] (hard of hearing) Bipolar depression Insomnia H/O migraine Asthma Fibromyalgia Anxiety Surgical History Hx of cholecystectomy Hx of eye surgery Hx of eye surgery Hx of eye surgery Bariatric surgery status Family History Father Substance use disorder Mental health disorder Mother Substance use disorder Mental health disorder Social History Housing: Apartment Alcohol intake: current Alcohol intake frequency: holidays/special occasions only Patient Tobacco Use Status: Former Tobacco user e-Cigarette/Vaping Use: Currently Using service: No Current occupational status: employed Cognitive needs: No Hearing needs: No Vision needs: Yes Review of Systems Const All systems reviewed & are unremarkable except as noted in HPI and below Physical Exam Vital Signs: Last Vital Signs Pulse 87 11/11/24 08:04 BP 106/72 11/11/24 08:04 Pulse Ox 99 11/11/24 08:04 Oxygen Delivery Method Room Air 11/11/24 08:04 BMI result Body Mass Index 41.5 Const Orientation/consciousness: patient oriented x3 Resp Effort & Inspection: normal respiratory effort and able to speak in complete sentences Neuro General: patient oriented x3 and moves all extremities Gait exam (Neuro): Normal gait present Motor exam (neuro): 5/5 motor strength present throughout and Normal motor muscle tone present throughout Psych Speech and movement: Normal speech and movement present Thought process: Normal thought process present Thought content: Normal thought content present Orientation What is the (year) (season) (date) (day) (month)?: year, season, date, day and month Where are we (state) (county) (town or city) (hospital) (floor)?: state, county, town or city, hospital/clinic and floor Attention & Calculation (CHOOSE ONE) Spell WORLD backwards (DLROW): 5 letters Recall Ask patient to repeat the 3 items from question #3.: object 2 Language Show patient a wristwatch & ask what it is. Repeat for pencil.: watch and pencil Ask the patient to repeat the phrase 'No ifs, ands, or buts' after you.: correct Ask the patient to 'take a piece of paper with their right hand' 'fold paper in half' 'place paper on floor': fold paper in half and place paper on floor Print the sentence 'CLOSE YOUR EYES' on a piece. If patient actually closes eyes then score.: followed written direction Give patient a blank piece of paper & ask to write a sentence. Score if it contains a noun & verb.: sentence contains subject and verb Score Score: 23 Results Reviewed Results Reviewed: Head CT scan [facility] 2022 No evidence of Traumatic Injury to the intracranial contents. Assessment & Plan Assessment & Plan (1) Cognitive decline: Code(s): R41.89 - Other symptoms and signs involving cognitive functions and awareness Category: Medical Plan Cognitive Evaluation: Completed MMSE today for referral to specialist at [facility] and further testing with [facility]. Coding Level of Care Code Est Pt Level 3 (92467) Diagnoses Cognitive decline R41.89 Time Spent (min) 20 Comment Evaluation
[2024-11-11 08:04] VITALS: BP 106/72; PULSE 87; O2SAT 99; BMI 41.5
== END 2024-11-11 09:42 | disposition home or self-care (01) ==
PROVIDERS: PCP Nurse Practitioner; Visit Provider Physician Assistant Medical
DX: R41.89 Other symptoms and signs involving cognitive functions and awareness (principal)
CPT/HCPCS: 99213

== ENCOUNTER 2025-01-07 14:51 | Outpatient (REF) | payer BC, SELFPAY ==
--- NOTE | 2025-01-07 14:53 | EMG_ITS ---
Chief complaint: Numbness below knees to feet Reason for referral: Evaluate for neuropathy Referred by: Sharifa BRICENO Procedure done: Bilateral lower extremity NCS/EMG Precautions and/or limitations: None The limb temperature was monitored continuously and remained between 32-36 degrees C during the performance of the NCS. Nerve Conduction Studies Anti Sensory Summary Table ?Stim Site NR Onset (ms) Norm Onset (ms) Peak (ms) Norm Peak (ms) O-P Amp (?V) Norm O-P Amp Site1 Site2 Delta-0 (ms) Dist (cm) Sonido (m/s) Norm Sonido (m/s) Left Sural Anti Sensory (Lat Mall) Calf ? 2.4 3.1 <4.0 8.6 >5.0 Calf Lat Mall 2.4 14.0 58 Right Sural Anti Sensory (Lat Mall) Calf ? 2.3 3.0 <4.0 5.1 >5.0 Calf Lat Mall 2.3 14.0 61 Motor Summary Table ?Stim Site NR Onset (ms) Norm Onset (ms) O-P Amp (mV) Norm O-P Amp iAmp (mV) Amp (1st) (%) Site1 Site2 [place]-0 (ms) Dist (cm) Sonido (m/s) Norm Sonido (m/s) Left Peroneal Motor (Ext Dig Brev) Ankle ? 3.1 <4.0 1.0 >2.5 1.5 100.0 Ankle Ext Dig Brev 3.1 0.0 B Fib ? 7.7 0.7 0.7 70.0 B Fib Ankle 4.6 26.0 57 >40 Poplt ? 8.4 0.8 1.0 80.0 Poplt B Fib 0.7 4.5 64 >40 Right Peroneal Motor (Ext Dig Brev) Ankle ? 3.3 <4.0 2.7 >2.5 3.2 100.0 Ankle Ext Dig Brev 3.3 0.0 B Fib ? 8.0 2.5 2.8 92.6 B Fib Ankle 4.7 25.6 54 >40 Poplt ? 8.4 2.6 2.9 96.3 Poplt B Fib 0.4 5.0 125 >40 Left Peroneal TA Motor (Tib Ant) Fib Head ? 2.6 <4.2 2.0 2.4 100.0 Fib Head Tib Ant 2.6 0.0 Poplit ? 3.0 <5.7 1.8 2.2 90.0 Poplit Fib Head 0.4 4.5 113 >40.5 Left Tibial Motor (Abd Magana Brev) Ankle ? 3.0 <5 14.8 >2.5 20.2 100.0 Ankle Abd Magana Brev 3.0 0.0 Knee ? 8.9 11.4 15.3 77.0 Knee Ankle 5.9 31.0 53 >40 Right Tibial Motor (Abd Magana Brev) Ankle ? 3.0 <5 17.0 >2.5 20.8 100.0 Ankle Abd Magana Brev 3.0 0.0 Knee ? 8.7 14.9 18.5 87.6 Knee Ankle 5.7 32.0 56 >40 EMG ?Side Muscle Nerve Root Ins Act Fibs Psw Amp Dur Poly Recrt Int Pat Comment Right AbdHallucis MedPlantar S1-2 Nml Nml Nml Nml Nml 0 Nml Complete Right AntTibialis Dp Br Peron L4-5 Nml Nml Nml Nml Nml 0 Nml Complete Right PostTibialis Tibial L5, S1 Nml Nml Nml Nml Nml 0 Nml Complete Right MedGastroc Tibial S1-2 Nml Nml Nml Nml Nml 0 Nml Complete Right VastusMed Femoral L2-4 Nml Nml Nml Nml Nml 0 Nml Complete Left AbdHallucis MedPlantar S1-2 Nml Nml Nml Nml Nml 0 Nml Complete Left AntTibialis Dp Br Peron L4-5 Nml Nml Nml Nml Nml 0 Nml Complete Left PostTibialis Tibial L5, S1 Nml Nml Nml Nml Nml 0 Nml Complete Left MedGastroc Tibial S1-2 Nml Nml Nml Nml Nml 0 Nml Complete Left VastusMed Femoral L2-4 Nml Nml Nml Nml Nml 0 Nml Complete Left Peroneus Long Sup Br Peron L5-S1 Nml Nml Nml Nml Nml 0 Nml Complete Paraspinal EMG ?Side Muscle Nerve Root Ins Act Fibs Psw Comment Right Lumbar Upper Rami Nml Nml Nml Right Lumbar Mid Rami Nml Nml Nml Right Lumbar Lower Rami Nml Nml Nml Left Lumbar Upper Rami Nml Nml Nml Left Lumbar Mid Rami Nml Nml Nml Left Lumbar Lower Rami Nml Nml Nml FINDINGS: Left peroneal nerve showed normal distal latency, small amplitude and normal conduction velocity. No conduction block across fibular neck. All other nerves tested were within normal. Concentric needle EMG was performed in selected muscles of the bilateral lower extremity and lumbar paraspinals. Study did not reveal signs of electric abnormalities as shown in the table above. IMPRESSION: 1. 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 2. There is no electrodiagnostic evidence for tibial neuropathy, lumbosacral plexopathy, lumbar radiculopathy, or peripheral neuropathy. Thank you for your kind referral. Samantha Feliciano MD, VICKI Board Certified, [place] [employer] and Rehabilitation (ABPMR) Board Certified, [place] Board of Electrodiagnostic Medicine (ABEM) CODIN [address] x 2 MTDD
--- OUTSIDE RECORDS SUMMARY | 2025-01-07 16:20 | XMS_ITS | Data Portability ---
Author Organization [facility], [facility] Address [address] [place] [address], [facility] [address] [place] [address] Care Team Providers Care Electrical Mechanical Technician Name Role Phone BENJAMIN MENJIVAR Primary Care [...] are varying amounts of side effects from [id number]. 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 Procedure Notes None recorded. Medical Equipment None Reported. Allergies Allergen ID Allergen Name Allergen Category Reaction Reaction Severity Criticality Documentation Date Start Date Code Code System Note Provider Name and Address Organization Details Recorded Time 3858 adhesive tape environme nt,medica tion Not available Not available Not available 05/12/2024 23206 UNK Flori Mo tank [employer] 4 14:27:18 3859 amoxicill in medicatio n Not available Not available Not available 05/12/2024 723 RxNorm Flori Mo tank [facility] 4 14:27:26 3860 clindamyc in Not available Not available Not available Not available 05/12/2024 2582 RxNorm Flori Mo tank [facility] 4 14:27:32 3861 tapentado l medicatio n Not available Not available Not available 05/12/2024 43268 0 RxNorm Flori Mo tank [facility] 4 14:27:39 3862 venlafaxi ne medicatio n Not available Not available Not available 05/12/2024 81238 RxNorm Flori Mo tank, [facility] 4 14:27:48 Medications Name Sig Start Date [...] Address Organization Details Last Updated DateTime 05/21/2024 64098.63 g 40.4 kg/m2 142.24 cm Jian Bello MD [address] [place] [address], [facility] [address], [place], [address], [employer] 05/21/2024 15:49:17 Social History Question Answer Notes LastModified by Organization Details LastModified Time Tobacco Smoking Status Never Smoker Jian Bello MD [address] [place] [address], [facility] 3, [place], [address], [employer] 05/21/2024 15:55:21 How Much Alcohol Do You [...] Yes [email or web address] Information not available 05/21/2024 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 No [email or web address] Information not available 05/21/2024 History [...] SNOMED-CT Code Diagnosis ICD10 Code Diagnosis Note [id number] Jian Bello MD [address], [facility] [address] [place] [address] 05/21/2024 15:45:05 05/25/2024 16:24:03 Increased body mass index 37108752 E66.9 Bipolar disorder 5688226 4 F31.9 Attention deficit hyperactivity disorder, predominantly inattentive type 19073291 F90.0 Gastropare sis syndrome 550001945 K31.84 Body mass index 40+ - severely obese 781302682 Z68.41 Health Concerns Section Related Observation LastModified by Organization Detai ls LastModified Time None Recorded Concern Status LastModified by Organization Details LastModified Time None Recorded Advance Directives Directive None Recorded Payers Encounter Date Sequence Insurance Name Policy Number Policy Adames Covered Member ID Adames Member ID Guarantor Name 05/21/2024 1 [place] [id number] Osiel Charles [id number] Deyanira Charles Notes Date Note Type Note [...] motility emptying scan Jian Bello MD [address] [facility], [address], [place], [address], [facility] - [employer] [facility] 05/25/2024 10:37:29 OBGyn Episode No OBEpisode recorded.
--- OUTSIDE RECORDS SUMMARY | 2025-01-07 16:20 | XMS_ITS | Encounter Summary ---
Author Organization [facility] Address [address] [place] [address] Care Team Providers Care Manager Scientific Name Role Phone Radha Martel PA-C Primary Care Provi mckenna Vinod Robles MD Unavailable [phone] Encounter Details Date Type Department Care Team (Late st Contact Info) Description 05/26/2024 Scanned Document [facility] [address] [place] [address] Internal Medicine, Scan Social History Tobacco Use [...] Care Team (Late st Contact Info) Description 01/20/2025 11:40 AM EDT Telemedicine [facility] Department Of Hematology/Oncology [place] [address] [place] [phone] Jhoana Wilkins MD [address] [facility] [address] [place] [address] 04/01/2025 9:45 AM EDT Office Visit [facility] Department of Cardiology [place] [address] [place] [address] Antonio Puente MD [address] [place] [address] 05/20/2025 3:45 PM EDT Office Visit [facility] [address] [place] [address] Radha Martel PA-C [address] [place] [address] documented as of this encounter Visit Diagnoses Not on filedocumented in this encounter Care Teams Manager Scientific Relationship Specialty Start Date End Date Radha Martel PA-C [address] [place] [address] PCP - General Internal Medicine 02/24/24 Vinod Robles MD [address] [place] [address] Primary Bogger Operator Cardiovascular Disease 09/02/24 documented as of this encounter
--- OUTSIDE RECORDS SUMMARY | 2025-01-07 16:20 | XMS_ITS | Encounter Summary ---
Author Organization [facility] Address [address] [place] [address] Care Team Providers Care Drafter Electromechanical Name Role Phone Radha Martel PA-C Primary Care Provi mckenna Vinod Robles MD Unavailable Reason for Referral * Orthopedic (Routine) - Authorized Specialty Diagnoses / Procedures Referred By Contac t Referred To Contact Surgery, Orthopedic / Orthopedic Surgery Diagnoses Acute right ankle pain Radha Martel PA-C [address] [place] [address] [facility] Trauma Ref [address] [address] Referral ID Status Reason Start Date Expiration Date V isits Requested Visits Authorized [id number] Authorized Consult 01/06/2025 01/07/2026 1 1 * Neurology (Routine) - Pending Review Specialty Diagnoses / Procedures Referred By Contac t Referred To Contact Neurology Diagnoses Chronic bilateral low back pain, unspecified whether sciatica present Muscle spasm Fibromyalgia Radha Martel PA-C [address] [place] [address] [facility] [address] [facility] [address] [place] [phone] Referral ID Status Reason Start Date Expiration Date Visits Requested Visits Authorized [id number] Pending Review Consult 01/06/2025 01/07/2026 1 1 Reason for Visit * Reason Comments Follow-up Encounter Details Date Type Department Care Team (Late st Contact Info) Description 01/06/2025 11:30 AM EDT Office Visit [facility] 100 [facility] 101 [place] [address] Radha Martel PA-C [address] [place] [address] Chronic bilateral low back pain, unspecified whether sciatica present (Primary Dx); Muscle spasm; Fibromyalgia; Acute right ankle pain; Gastroesophageal reflux disease, unspecified whether esophagitis present; Palpitations; Memory change Social History Tobacco Use Types Packs/Day Years Used Date Smoking Tobacco: Never Smokeless Tobacco: Current Comments:vaping Alcohol Use Standard Drinks/Week Comments Not Currently 0 (1 standard drink = 0.6 oz pur e alcohol) PHQ-2 Answer Date Recorded PHQ-2 Total Score [...] Sign Reading Time Taken Comments Blood Pressure 110/74 01/06/2025 11:17 AM EDT Pulse 71 01/06/2025 11:17 AM EDT Temperature 36.5 ??C (97.7 ??F) 01/06/2025 11:17 AM E DT Respiratory Rate 17 01/06/2025 11:17 AM EDT Oxygen Saturation 98% 01/06/2025 11:17 AM EDT Inhaled Oxygen Concentration - - Weight 83.6 kg (184 lb 3.2 oz) 01/06/2025 11:17 AM EDT Height 142.2 cm (4' 8 ) 01/06/2025 11:17 AM EDT Body Mass Index 41.3 01/06/2025 11:17 AM EDT documented in this encounter Progress Notes * Radha Martel PA-C - 01/06/2025 12:05 PM EDT Images from the original note were not included. Assessment & Plan 1. Chronic bilateral low back pain, unspecified whether sciatica present Patient is following with physiatry and will be undergoing injections. She is unhappy since this isnot can address her muscular issues. Referral placed to neurology/neuromuscular clinic. - Amb Referral to Neurology-Neuromuscular 2. Muscle spasm Has failed all muscle relaxers. Continue with massage. - Amb Referral to Neurology-Neuromuscular 3. Fibromyalgia On Lyrica 150 mg twice a day. Minimal response - Amb Referral to Neurology-Neuromuscular 4. Acute right ankle pain October 2024. Referral to Ortho. - Amb referral to Orthopedic Surgery 5. Gastroesophageal reflux disease, unspecified whether esophagitis present Following with GI. Upcoming testing. Recently started on vonoprazan. 6. Palpitations Question POTS. Waiting for tilt table. Following with cardiology. 7. Memory change Following with neurology. Neuropsych testing scheduled. 8. Immunodeficiency Following with immunology. Patient is going for infusion shortly We will see her back in the office in May for her annual wellness. Patient understands and agrees with the plan of care Return in about 19 weeks (around 05/19/2025) for ANNUAL EXAM with ME, ANNUAL EXAM WITH ME 45MIN. Communication barriers and lifestyle preferences were addressed with the patient. The care plan including medications and self-management goals were reviewed to the best of the patient???s abilities.All questions and concerns were answered. Patient and/or family verbalized understanding of the plan of care. Subjective Deyanira Mill[place] is a 34 y.o. female who presents for office visit. Chief Complaint Patient presents with Follow-up HPI Deyanira presents to the office today for follow-up. She has seen a few specialist since have seen her last. She states she saw GI and had further testing. Her pH testing was positive for pathologic acid exposure. Was started on Vonoprazan 10 mg daily in addition to famotidine.. She has an endoscopy scheduled next week. There is some concern whether she has eosinophilic esophagitis. Patient states she failed the timed barium swallow. She states that she also needs pelvic floor therapy for her rectal incontinence. She is unable to afford it. She saw cardiology and failed her event monitor- was in sinus tach the entire time . There was some concern that patient has POTS. She is waiting for a tilt table. She stopped [facility] for her back pain/muscle pain. They are going to do some injections of the lumbar spine. She is unhappy because she wants her muscle issue addressed. She feels her muscles are tight all over. She has a massage 2 times a month and it is quite intensive. Her massage therapist states the muscles are so thick and tense. She has failed all muscle relaxers. She would liketo see a neuromuscular specialist. She is seeing neurology for brain fog. She is having some neuropsych testing done. She will be starting Ig G infusions for her immunodeficiency. Following with immunology. With regards to her fibromyalgia she is taking Lyrica 150 mg daily. She does not notice much difference. She sprained her right ankle when she fainted back in October. She was seen in urgent care. X-ray of the right foot was normal. X-ray of the ankle was not done. Patient states the ankle is still bothering her it feels stiff and painful with walking. She cannot afford physical therapy. Current Outpatient Medications Medication Sig Dispense Refill albuterol (PROVENTIL HFA; VENTOLIN HFA) 108 (90 Base) MCG/ACT inhaler Inhale 2 puffs 4 times daily (every 6 hours) as needed for wheezing. 1 each 1 Armodafinil (NUVIGIL) 250 MG tablet Take 1 tablet (250 mg total) by mouth daily. cariprazine (Vraylar) 1.5 MG caspule Take 1 tablet by mouth daily. colesevelam (WELCHOL) 625 MG tablet Take 3 tablets (1,875 mg total) by mouth 2 (two) times a day with meals. eszopiclone (LUNESTA) 1 MG tablet Take 1 tablet (1 mg total) by mouth nightly. lamoTRIgine (LaMICtal) 200 MG tablet Take 1 tablet (200 mg total) by mouth daily. Mometasone Furoate Powder Compound mometasone 1mg capsule in sinus rinse twice daily pregabalin (LYRICA) 150 MG capsule Take 1 capsule (150 mg total) by mouth 2 (two) times a day. 60 capsule 3 QUEtiapine (SEROquel) 100 MG tablet Take 1 tablet (100 mg total) by mouth nightly. Ubrelvy 100 MG tablet TAKE 1/2 TO 1 TABLET BY MOUTH NEEDED FOR MIGRAINE. MAY REPEAT IN 2 HOURS. MAY TAKE WITH IBUPROFEN valACYclovir (VALTREX) 500 MG tablet Take 1 tablet (500 mg total) by mouth daily. vonoprazan (VOQUEZNA) 10 mg tablet Take 1 tablet (10 mg total) by mouth daily. No current facility-administered medications for this visit. Pertinent History: The patient's past medical, surgical, social, and family history were all reviewed and updated as appropriate. Review of Systems Cardiovascular: See HPI Gastrointestinal: See HPI Musculoskeletal: See HPI Neurological: See HPI Objective Vitals: 01/06/25 1117 BP: 110/74 Pulse: 71 Resp: 17 Temp: 97.7 ??F (36.5 ??C) SpO2: 98% Body mass index is 41.3 kg/m??. Physical Exam Vitals reviewed. Constitutional: Appearance: Normal appearance. Cardiovascular: Rate and Rhythm: Normal rate and regular rhythm. Pulmonary: Effort: Pulmonary effort is normal. Breath sounds: Normal breath sounds. Musculoskeletal: Right lower leg: No edema. Left lower leg: No edema. Comments: Right lower extremity: 2+ pulses. No pain on palpation of the medial or lateral malleolus. Strength is within normal limits. Pain with eversion of the foot. Neurological: Mental Status: She is alert. Psychiatric: Mood and Affect: Mood normal. Behavior: Behavior normal. Disclaimer: [employer] voice-recognition is used to prepare this typewritten note. Although each note is personally edited for syntactic and grammatical errors, unintended translational errors can occur.Please contact me if there are any questions about the content of this note. Radha Martel PA-C documented in this encounter Plan of Treatment Upcoming Encounters Date Type Department Care Team (Late st Contact Info) Description 01/20/2025 11:40 AM EDT Telemedicine [facility] Department Of Hematology/Oncology [place] [address] [address] [place] [address] Jhoana Wilkins MD [address] [place] [address] 04/01/2025 9:45 AM EDT Office Visit [facility] Department of Cardiology [place] [address] [place] [phone] Antonio Puente MD [address] [place] [address] 05/20/2025 3:45 PM EDT Office Visit [facility] [address] [place] [address] Radha Martel PA-C [address] [place] [phone] Scheduled Referrals Name Type Priority Associated Diagnoses Orde r Schedule Amb Referral to Neurology-Neuromuscu lar Outpatient Referral Routine Chronic bilateral low back pain, unspecified whether sciatica present Muscle spasm Fibromyalgia Ordered: 01/06/2025 Amb referral to Orthopedic Surgery Outpatient Referral Routine Acute right ankle pain Ordered: 01/06/2025 documented as of this encounter Visit Diagnoses Diagnosis Chronic bilateral low back pain, unspecified whether sciatica present- Primary Muscle spasm Spasm of muscle Fibromyalgia Unspecified myalgia and myositis Acute right ankle pain Gastroesophageal reflux disease, unspecified whether esophagitis present Palpitations Memory change Memory loss documented in this encounter Care Teams Drafter Electromechanical Relationship Specialty Start Date End Date Radha Martel PA-C [address] [place] [address] PCP - General Internal Medicine 02/24/24 Vinod Robles MD [address] [place] [address] Primary Case Investigator Cardiovascular Disease 11/27/24 documented as of this encounter
--- OUTSIDE RECORDS SUMMARY | 2025-01-07 16:20 | XMS_ITS | Encounter Summary ---
Author Organization [facility] Address [address] [place] [address] Care Team Providers Care Marine Architect Name Role Phone Radha Martel PA-C Primary Care Provi mckenna Vinod Robles MD Unavailable [phone] Encounter Details Date Type Department Care Team (Late st Contact Info) Description 05/04/[address] [phone] Radha Martel PA-C [address] [place] [address] Social History Tobacco Use Types Packs/Day Years [...] MA - 05/04/2024 12:44 PM EDT from [facility] genetics stated they got a referral [...] Info) Description 01/20/2025 11:40 AM EDT Telemedicine [facility] Department Of Hematology/Oncology [place] [address] [place] [phone] Jhoana Wilkins MD [address] [facility] [address] [place] [address] 04/01/2025 9:45 AM EDT Office Visit [facility] Department of Cardiology [place] [address] [place] [address] Antonio Puente MD [address] [place] [address] 05/20/2025 3:45 PM EDT Office Visit [facility] [address] [place] [address] Radha Martel PA-C [address] [place] [address] documented as of this encounter Visit Diagnoses Not on filedocumented in this encounter Care Teams Marine Architect Relationship Specialty Start Date End Date Radha Martel PA-C [address] [place] [address] PCP - General Internal Medicine 02/24/24 Vinod Robles MD [facility] [address] Primary Fur Tinter Cardiovascular Disease 09/02/24 documented as of this encounter
--- OUTSIDE RECORDS SUMMARY | 2025-01-07 16:20 | XMS_ITS | Encounter Summary ---
Author Organization [facility] Address [address] [place] [address] Care Team Providers Care Client Services Director Name Role Phone Radha Martel PA-C Primary Care Provi mckenna Vinod Robles MD Unavailable Encounter Details Date Type Department Care Team (Latest Contact Info) Description 01/06/2025 Travel Social History Tobacco Use Types Packs/Day [...] EDT Telemedicine [facility] Department Of Hematology/Oncology [place] [address] [address] [place] [phone] Jhoana Wilkins MD [address] [facility] [address] [place] [address] 04/01/2025 9:45 AM EDT Office Visit [facility] Department of Cardiology [place] [address] [place] [address] Antonio Puente MD [address] [place] [address] 05/20/2025 3:45 PM EDT Office Visit [facility] [address] [place] [address] Radha Martel PA-C [address] [place] [address] documented as of this encounter Visit Diagnoses Not on filedocumented in this encounter Care Teams Client Services Director Relationship Specialty Start Date End Date Radha Martel PA-C [address] [place] [address] PCP - General Internal Medicine 02/24/24 Vinod Robles MD [address] [place] [address] Primary Reading Professor Cardiovascular Disease 09/02/24 documented as of this encounter
--- OUTSIDE RECORDS SUMMARY | 2025-01-07 16:20 | XMS_ITS | Clinical Summary ---
Author Organization [facility] Address [address] [place] [address] Care Team Providers Care Training Development Manager Name Role Phone Radha Martel PA-C Primary Care Provi mckenna Vinod Robles MD Unavailable Allergies Active Allergy Reactions Criticality Noted Date [...] mg total) by mouth nightly. 01/27/2024 Active lamoTRIgine (LaMICtal) 200 MG tablet Take 1 tablet (200 mg total) by mouth daily. 11/28/2023 Active valACYclovir (VALTREX) 500 MG tablet Take 1 tablet (500 mg total) by mouth daily. 04/15/2023 Active Mometasone Furoate Powder Compound mometasone 1mg capsule in sinus rinse twice daily 07/21/2024 Active Ubrelvy 100 MG tablet TAKE 1/2 TO 1 TABLET BY MOUTH NEEDED FOR MIGRAINE. MAY REPEAT IN 2 HOURS. MAY TAKE WITH IBUPROFEN Active albuterol (PROVENTIL HFA; VENTOLIN HFA) 108 (90 Base) MCG/ACT inhalerIndication s:Bacterial respiratory infection Inhale 2 puffs 4 times daily (every 6 hours) as needed for wheezing. 1 each 1 11/21/2024 Active pregabalin (LYRICA) 150 MG capsuleIndication s:Fibromyalgia Take 1 capsule (150 mg total) by mouth 2 (two) times a day. 60 capsule 3 12/08/2024 Active colesevelam (WELCHOL) 625 MG tablet Take 3 tablets (1,875 mg total) by mouth 2 (two) times a day with meals. 12/22/2024 Active vonoprazan (VOQUEZNA) 10 mg tablet Take 1 tablet (10 mg total) by mouth daily. 12/22/2024 Active melatonin 5 MG Tab tablet Take 1 tablet (5 mg total) by mouth nightly. 11/30/2023 5 Discontinue d(Med List Clean-up/Ol d Med - No E-Cancel/No AVS) colestipol (COLESTID) 1 g tablet TAKE 2 TABLETS (2 G TOTAL) BY MOUTH DAILY. 03/13/2024 5 Discontinue d(Med List Clean-up/Ol d Med - No E-Cancel/No AVS) proCHLORPERAZINE (COMPAZINE) 10 MG tablet TAKE 1 TABLET ORALLY EVERY 8 HOURS NEEDED FOR NAUSEA AND VOMITING FOR 30 DAYS 5 Discontinue d(Med List Clean-up/Ol d Med - No E-Cancel/No AVS) Active Problems Problem Noted Date Diagnosed Date Bleeding diathesis 12/24/2024 Heart palpitations 10/30/2024 Assessment & Plan (12/14/2024 8:42 AM EDT): Monitor only demonstrated sinus tachycardia. Patient needs to move slowly. Patient may be also somewhat deconditioned. Assessment & Plan (10/30/2024 4:45 PM EST): We will do an echocardiogram to define substrate rule out valvulopathy. We will do a event monitor as patient has had syncope. We want to rule out malignant ventricular dysrhythmia. Syncope and collapse 10/30/2024 Assessment & Plan (12/14/2024 8:42 AM EDT): Echo was not remarkable. The monitor only showed sinus tachycardia. The patient may have some forme fruste of POTS. Will do a tilt table test. Assessment & Plan (10/30/2024 4:45 PM EST): Patient went down her waiting room. Patient was sent to go urgent care to be evaluated. She has right ankle pain. We do an echocardiogram to define substrate rule out valvulopathy and determine risk of malignant ventricular arrhythmia. S/P repair of PDA 04/28/2024 Assessment & Plan (12/14/2024 8:41 AM EDT): Echocardiogram was not remarkable. Assessment & Plan (10/30/2024 4:43 PM EST): We are going to do an echocardiogram to define substrate rule out valvulopathy. B12 deficiency 03/10/2024 Anemia 03/05/2024 Morbid obesity 02/24/2024 Assessment & Plan (12/14/2024 8:41 AM EDT): Patient is status post gastric sleeve. Weight loss is indicated. Assessment & Plan (10/30/2024 4:43 PM EST): [...] Encounters Date Type Department Care Team Description 01/06/2025 11:30 AM EDT Office Visit [address] [place] [phone] Radha Martel PA-C Chronic bilateral low back pain, unspecified whether sciatica present (Primary Dx); Muscle spasm; Fibromyalgia; Acute right ankle pain; Gastroesophageal reflux disease, unspecified whether esophagitis present; Palpitations; Memory change 01/06/2025 Travel 12/29/2024 8:00 AM EDT Consult [facility] Department of Physiatry [place] [address] [facility] 102 [place] [phone] Karlene العراقي MD Lumbar facet joint pain (Primary Dx); Myalgia; Spasm of both trapezius muscles; Lumbar paraspinal muscle spasm 12/29/2024 Travel 12/24/2024 10:40 AM EDT Office Visit [facility] Department Of Hematology/Oncology [place] [address] [address] [place] [address] [place] [phone] Jhoana Wilkins MD Bleeding diathesis (Primary Dx); Anemia; B12 deficiency; Bipolar 2 disorder, major depressive episode (HCC); Fe deficiency anemia; Morbid obesity (HCC); S/P gastric sleeve procedure 12/16/2024 Orders Only [address] [place] [phone] Radha Martel PA-C Fibromyalgia (Primary Dx); Trigger finger, unspecified finger, unspecified laterality 12/14/2024 8:30 AM EDT Office Visit [facility] Department of Cardiology [place] 160 [facility] [address] [place] [phone] Antonio Puente MD Heart palpitations (Primary Dx); Syncope and collapse; Morbid obesity (HCC); S/P repair of PDA 12/09/[address] [facility] 100 [facility] 101 [place] [phone] Radha Martel PA-C Fibromyalgia (Primary Dx) 12/08/[address] [facility] 100 [facility] 101 [place] [phone] Radha Martel PA-C Fibromyalgia (Primary Dx) 11/25/2024 8:00 AM EST Office Visit [facility] Dermatology [address] [place] [address] Radha Martel PA-C Naka, Fludiona, MD Cutaneous skin tags (Primary Dx); Lentigines; Xerosis cutis; Abreu angioma; Multiple pigmented nevi; Screening for skin cancer; Sun-damaged skin; Pruritus; Other specified counseling; Disturbance of skin sensation; Seborrheic keratoses 11/25/2024 Travel 11/24/2024 11:00 AM EST Office Visit [facility] 100 [facility] [address] [place] [phone] Radha Martel PA-C Fibromyalgia (Primary Dx); B12 deficiency; Iron deficiency anemia, unspecified iron deficiency anemia type; Recurrent sinus infections; Incontinence of feces, unspecified fecal incontinence type; Syncope and collapse; Frequent infections 11/24/2024 Travel 11/21/2024 2:00 PM EST Telemedicine [address] [phone] Jon Pleitez MD Patel, Arti J, PA-C Bacterial respiratory infection (Primary Dx) 11/21/2024 Travel 10/30/2024 Orders Only [facility] Department Of Hematology/Oncology [place] [address] [address] [place] [phone] Jhoana Wilkins MD B12 deficiency (Primary Dx); Fe deficiency anemia; Anemia 10/29/2024 11:45 AM EST Hospital Encounter [facility] [address] [place] [phone] 10/29/2024 10:10 AM EST Office Visit [facility] [address] [place] [address] Jon Pleitez MD Nguyen, Nam V, PA Right foot injury, initial encounter (Primary Dx) 10/29/2024 8:45 AM EST Office Visit [facility] Department of Cardiology [place] [address] [place] [address] Antonio Puente MD Heart palpitations (Primary Dx); S/P repair of PDA; Dizziness and giddiness; Morbid obesity (HCC); Syncope and collapse 10/29/2024 Travel 10/29/2024 Scanned Document [facility] 80 [facility] [address] [place] [address] Provider, Generic 10/29/2024 Scanned Document [facility] 80 [facility] [address] [place] [address] Provider, Generic from Last 3 Months Immunizations Name Administration [...] Mass Index 41.3 01/06/2025 11:17 AM EDT Plan of Treatment Upcoming Encounters Date Type Department Care Team (Late st Contact Info) Description 01/20/2025 11:40 AM EDT Telemedicine [facility] Department Of Hematology/Oncology [place] [address] [place] [address] Con[address] [place] [phone] Jhoana Wilkins MD [address] [place], [place] [address] 04/01/2025 9:45 AM EDT Office Visit [facility] Department of Cardiology [place] [address] [place] [phone] Antonio Puente MD [address] [place], [place] [phone] 05/20/2025 3:45 PM EDT Office Visit [facility] [address] [place] [phone] aRdha Martel PA-C [address] [place] [address] Health Maintenance Due Date Last Done Comments Pap Smear (Ages 21-65) 01/10/2013 Pneumococcal Vaccine: Pediatric (0-5 Years) and At-Risk Patients (6 to 49 Years) (2 of 2 - PCV) 06/02/2021 06/02/2020 COVID-19 Vaccine (2023- season) 2024 Physical 05/18/2027 05/18/2024 DTaP/Tdap/Td Vaccines (4 - Td or Tdap) 03/22/2033 03/22/2023, 07/14/2012, 09/19/2011 HIV Screening Completed 02/15/2021 Chronic Controlled Substance User PDMP Review Discontinued 07/16/2024 Influenza Vaccine Completed 12/26/2024, , 08/06/2019, Additional history exists HPV Vaccines Aged Out No longer eligi ble based on patient's age to complete this topic Hepatitis B Vaccines Discontinued Hepatitis C Virus Screening Discontinued Procedures Procedure Name Priority Date/Time Associated Diagnosis Comments VITAMIN B12 AND FOLATE Routine 11:25 AM EDT Bleeding diathesis VON WILLEBRAND FACTOR MULTI. Routine 12/24/2024 11:20 AM EDT FACTOR VIII ACTIVITY, CHROMOGENIC Routine 12/24/2024 11:20 AM EDT VON WILLEBRAND FACTOR ACTIVITY Routine 12/24/2024 11:20 AM EDT PROTIME-INR Routine 12/24/2024 11:20 AM EDT Bleeding diathesis PARTIAL THROMBOPLASTIN TIME (PTT) Routine 12/24/2024 11:20 AM EDT Bleeding diathesis IRON AND TOTAL IRON BINDING CAPACITY Routine 12/24/2024 11:20 AM EDT Bleeding diathesis FERRITIN Routine 12/24/2024 11:20 AM EDT Bleeding diathesis COMPREHENSIVE METABOLIC PANEL Routine 12/24/2024 11:20 AM EDT Bleeding diathesis COMPLETE BLOOD COUNT, WITH DIFFERENTIAL Routine 12/24/2024 11:20 AM EDT Bleeding diathesis VON WILLEBRAND FACTOR ANTIGEN Routine 12/24/2024 12:00 AM EDT Bleeding diathesis CARDIAC EVENT/LOOP MONITOR RECORD/SCN ANLYSIS/REPORT ([id number]) Routine 11/30/2024 9:51 AM EST Heart palpitations ECHOCARDIOGRAM (TTE) COMPREHENSIVE (CONTRAST PRN) Routine 11/30/2024 8:59 AM EST Heart palpitations S/P repair of PDA VITAMIN B12 AND FOLATE Routine 10:45 AM EST B12 deficiency Fe deficiency anemia Anemia IRON AND TOTAL IRON BINDING CAPACITY Routine 11/02/2024 10:45 AM EST B12 deficiency Fe deficiency anemia Anemia FERRITIN Routine 11/02/2024 10:45 AM EST B12 deficiency Fe deficiency anemia Anemia COMPLETE BLOOD COUNT, WITH DIFFERENTIAL Routine 11/02/2024 10:45 AM EST B12 deficiency Fe deficiency anemia Anemia XR FOOT 3+ VIEWS-RIGHT STAT 11:30 AM EST Right foot injury, initial encounter ECG 12-LEAD Routine 10/29/2024 8:51 AM EST Heart palpitations S/P repair of PDA Dizziness and giddiness from Last 3 Months Results * VITAMIN B12 AND FOLATE (12/24/2024 11:25 AM EDT) Only the most recent of2 resultswithin the time period is included. Vitamin B12 390 211 - 946 pg/mL [facility] Folate, Serum 5.5 3.1 - 17.5 ng/mL [facility] Blood Blood specimen / Unknown 12/24/2024 11:25 AM EDT 12/24/2024 4:06 PM EDT Jhoana Wilkins MD LAB BLOOD ORDERABLES [facility] [address] [place] [address], * Von Willebrand Factor Multi. (12/24/2024 11:20 AM EDT) VWF Multimers Comment [facility] Comment: VWF multimer analysis demonstrates a normal pattern and distribution of bands. This is the pattern of multimers that occurs in normal individuals as well as in those with type 1 von Willebrand disease (VWD), type 2M and type 2N VWD. Some acquired von Willebrand syndrome cases may yield a normal pattern as well. No additional results available for further interpretation. This test was developed and its performance characteristics determined by [facility]. ??It has not been cleared or approved by the Food and Drug Administration. 12/24/2024 11:2 0 AM EDT 12/24/2024 3:50 PM EDT Jhoana Wilkins MD LAB BLOOD ORDERABLES Performing Organization Address City/[facility] Co de Phone Number [facility] * FACTOR VIII ACTIVITY, CHROMOGENIC (12/24/2024 11:20 AM EDT) Pathologist [facility] Factor Viii Activity 92 56 - 140 % [facility] 12/24/2024 11:2 0 AM EDT 12/24/2024 3:50 PM EDT Jhoana Wilkins MD GENETIC TESTING Performing Organization Address City/[facility] Co de Phone Number [facility] [address] * Iron and Total Iron Binding Capacity (12/24/2024 11:20 AM EDT) Only the most recent of2 resultswithin the time period is included. Pathologist [facility] Iron 75 45 - 160 ug/dL [facility] UIBC 235 110 - 370 ug/dL [facility] Total Iron Binding Capacity 310 228 - 428 ug/dL [facility] Iron Sat 24 11 - 50 % [facility] Blood Blood specimen / Unknown 12/24/2024 11:20 AM EDT 12/24/2024 3:50 PM EDT Jhoana Wilkins MD LAB BLOOD ORDERABLES Performing Organization Address City/[facility] Co de Phone Number [address] [place] [address], * VON WILLEBRAND FACTOR ACTIVITY (12/24/2024 11:20 AM EDT) Pathologist [facility] Von Willebrand Factor Activity 64 50 - 200 % [facility] 12/24/2024 11:2 0 AM EDT 12/24/2024 3:50 PM EDT Jhoana Wilkins MD LAB BLOOD ORDERABLES [facility] [address] [place] [address], * (ABNORMAL) Complete Blood Count, with Differential (12/24/2024 11:20 AM EDT) Only the most recent of2 resultswithin the time period is included. Pathologist [facility] WBC 9.97 4.00 - 11.00 Thousand/ uL [facility] RBC 4.14 4.04 - 5.48 Million/u L [facility] Hemoglobin 12.9 12.0 - 14.1 g/dL [facility] Hematocrit 40.0 33.5 - 43.3 % [facility] MCV 96.6 80.0 - 97.0 fL [facility] MCH 31.2 27.0 - 31.2 pg [facility] MCHC 32.3 31.8 - 35.4 g/dL [facility] RDW-CV 13.5 11.6 - 14.8 % [facility] Platelet Count 245.0 142.0 - 424.0 Thousand/ uL [facility] MPV 11.2 8.0 - 13.0 fL [facility] Neutrophil % 53.7 37.0 - 80.0 % [facility] Lymph % 38.7 10.0 - 50.0 % [facility] Monocytes % 5.3 1.0 - 11.9 % [facility] Eosinophils, % 0.8 0.0 - 6.9 % [facility] Basophils, % 0.4 0.0 - 2.4 % [facility] Absolute Neutrophil Count 5.4 2.0 - 6.9 Thousand/ uL [facility] Absolute Lymphocytes 3.9(H) 0.6 - 3.4 Thousand/ uL [facility] Absolute Monocytes 0.5 0.1 - 0.8 Thousand/ uL [facility] Absolute Eosinophils 0.1 0.0 - 0.6 Thousand/ uL [facility] Absolute Basophils 0.0 0.0 - 0.1 Thousand/ uL [facility] Immature Granulocytes 1.100(H) 0.001 - 0.900 % [facility] Abs Immature Granulocytes 0.1100(H) 0.0000 - 0.0700 Thousand/ uL [facility] Nucleated RBCS (%) 0.0 0.0 - 0.2 % [facility] NRBC, Absolute 0.000 0.000 - 0.012 Thousand/ uL [facility] Blood Blood specimen / Unknown 12/24/2024 11:20 AM EDT 12/24/2024 3:50 PM EDT Jhoana Wilkins MD LAB BLOOD ORDERABLES [facility] [address] * Partial Thromboplastin Time (PTT) (12/24/2024 11:20 AM EDT) PTT 27.9 24.0 - 33.0 SECONDS [facility] Blood Blood specimen / Unknown 12/24/2024 11:20 AM EDT 12/24/2024 3:50 PM EDT Jhoana Wilkins MD LAB BLOOD ORDERABLES Performing Organization Address City/[facility]/ZIP Co de Phone Number [address] * PROTIME-INR (12/24/2024 11:20 AM EDT) Prothrombin Time 10.9 9.3 - 11.4 SECONDS [facility] INR 1.04 0.96 - 1.18 [facility] Comment: NO ANTICOAG ??0.96-1.18 STD DOSE ? 2.00-3.00 HIGH DOSE ? 2.50-3.50 Blood Blood specimen / Unknown 12/24/2024 11:20 AM EDT 12/24/2024 3:50 PM EDT Jhoana Wilkins MD LAB BLOOD ORDERABLES Performing Organization Address City/[facility]/ZIP Co de Phone Number [facility] [address] [place] [address] * (ABNORMAL) FERRITIN (12/24/2024 11:20 AM EDT) Only the most recent of2 resultswithin the time period is included. Ferritin 164(H) 15 - 150 ng/mL [facility] Blood Blood specimen / Unknown 12/24/2024 11:20 AM EDT 12/24/2024 3:50 PM EDT Jhoana Wilkins MD LAB BLOOD ORDERABLES Performing Organization Address [facility] Co de Phone Number [address] * Comprehensive Metabolic Panel (12/24/2024 11:20 AM EDT) Glucose 82 70 - 99 mg/dL [facility] Blood Urea Nitrogen 8 7 - 22 mg/dL [facility] Creatinine, Ser 0.5 0.5 - 1.2 mg/dL [facility] Bun / Creat Ratio 16 11 - 30 [facility] Sodium 140 133 - 145 mmol/L [facility] Potassium 3.7 3.3 - 5.1 mmol/L [facility] Chloride 102 96 - 108 mmol/L [facility] CO2 25 22 - 31 mmol/L [facility] Anion Gap 13 3 - 19 mmol/L [facility] Calcium 9.2 8.8 - 10.6 mg/dL [facility] Total Protein 6.9 6.0 - 8.3 g/dL [facility] Albumin 4.3 3.2 - 4.8 g/dL [facility] Globulin 2.6 2.0 - 3.5 g/dL [facility] Albumin/Globulin Ratio 1.7 1.0 - 5.0 [facility] Aspartate Aminotrans (AST) 21 8 - 37 IU/L [facility] Alanine Aminotrans (ALT) 20 5 - 40 IU/L [facility] Alkaline Phosphatase 88 37 - 145 IU/L [facility] Bilirubin, Total 0.2 0.0 - 1.0 mg/dL [facility] GFR Estimated (calculated) >60 >60 [facility] Comment: As of 2021, the [facility] has updated the creatinine- based estimated glomerular filtration rate (eGFRcr) to the updated CKD-EPI 2020 equation. ??This change removes the race coefficient of the older calculation, and was made based on recommendations from the National Kidney Foundation and the [place] [employer]ph[employer]'s Task Force. ??The new eGFRcr has similar overall performance characteristics to the older equation and has been assessed to not have potential consequences that disproportionately affect any one group of individuals. ??However, some mild variation from the older eGFR equation can be expected especially in younger age patients and at higher eGFRcr values. Blood Blood specimen / Unknown 12/24/2024 11:20 AM EDT 12/24/2024 3:50 PM EDT Jhoana Wilkins MD LAB BLOOD ORDERABLES Performing Organization Address City/[facility]/ZIP Co de Phone Number [facility] [address] * von Willebrand Factor Antigen (12/24/2024 12:00 AM EDT) Von Willebrand Factor Antigen 128 50 - 200 % [facility] 1 Blood Blood specimen / Unknown 12/24/2024 12/25/2024 Comment:Blood Narrative [facility] ([place]) - 12/26/2024 1:05 PM EDT Test(s) 301412-[id number] Willebrand Factor (vWF) Ag was developed and its performance characteristics determined by [facility]. It has not been cleared or approved by the Food and Drug Administration. Performed at: ??01 - [facility] ??[id number] Plasterer Maintenance: Avelino Escobar MD, Phone: ??[phone] Jhoana Wilkins MD LAB BLOOD ORDERABLES [facility] ([place]) [facility] 1 * CARDIAC EVENT/LOOP MONITOR RECORD/SCN ANLYSIS/REPORT ([id number]) (11/30/2024 9:51 AM EST) Anatomical Region Laterality Modality Other Narrative 12/14/2024 8:33 AM EDT s Antonio Puente MD CV CARDIAC SERVICES ORDERABLES * ECHOCARDIOGRAM COMPREHENSIVE (11/30/2024 8:59 AM EST) Anatomical Region Laterality Modality Ultrasound 12/02/2024 3:44 PM EST Narrative 12/02/2024 3:44 PM EST To view the final report click the scan hyperlink below. Procedure Note Antonio Puente MD - 12/02/2024 To view the final report click the scan hyperlink below. Antonio Puente MD CV ECHO ORDERABLES * XR Foot 3+ views-Right (10/29/2024 11:30 AM EST) Anatomical Region Laterality Modality Foot Right Computed Radiogr aphy 10/29/2024 11:3 0 AM EST 10/29/2024 11:30 AM EST Impressions 10/29/2024 12:28 PM EST Normal right foot. Electronically signed by: ??Jassi Boone MD ??10/29/2024 12:28 PM EST Thank you for referring your patient to us, Jassi Boone MD [phone] (Electronically Signed - 10/29/2024 12:28) Copy: PATIENT [...] Boone MD 10/29/2024 12:28 PM EST RPWorkstation: [id number] Thank you for referring your patient to us, Jassi Boone MD [phone] (Electronically Signed - 10/29/2024 12:28) Copy: PATIENT , JANAK Longoria IMPardeep DIAGNOSTIC IMAGI NG ORDERABLES * ECG 12 lead (10/29/2024 8:51 AM EST) 10/29/2024 8:51 AM EST Antonio Puente MD ECG ORDERABLES from Last 3 Months Care Teams Training Development Manager Relationship Specialty Start Date End Date Radha Martel PA-C [address] [place] [address] PCP - General Internal Medicine 02/24/24 Vinod Robles MD [address] [place] [address] Primary Bicycle Repairer Cardiovascular Disease 09/02/24
--- OUTSIDE RECORDS SUMMARY | 2025-01-07 16:20 | XMS_ITS | Encounter Summary ---
Author Organization [facility] Address [address] [place] [address] Care Team Providers Care Molecular Geneticist Name Role Phone Radha Martel PA-C Primary Care Provi mckenna Viond Robles MD Unavailable [phone] Encounter Details Date Type Department Care Team (Late st Contact Info) Description 05/04/2024 Scanned Document [facility] [address] [place] [phone] Radha Martel PA-C [address] [place] [address] Social History Tobacco Use Types Packs/Day Years [...] Info) Description 01/20/2025 11:40 AM EDT Telemedicine [facility] Department Of Hematology/Oncology [place] [address] [address] [place] [phone] Jhoana Wilkins MD [address] [place], [place] [address] 04/01/2025 9:45 AM EDT Office Visit [facility] Department of Cardiology [place] [address] [place] [phone] Antonio Puente MD [address] [place] [address] 05/20/2025 3:45 PM EDT Office Visit [facility] [address] [place] [phone] Radha Martel PA-C [address] [place] [address] documented as of this encounter Visit Diagnoses Not on filedocumented in this encounter Care Teams Molecular Geneticist Relationship Specialty Start Date End Date Radha Martel PA-C [address] [place] [address] PCP - General Internal Medicine 02/24/24 Vinod Robles MD [address] [place] [address] Primary Corporate Manager Cardiovascular Disease 09/02/24 documented as of this encounter
--- OUTSIDE RECORDS SUMMARY | 2025-01-07 16:21 | XMS_ITS | Encounter Summary ---
Author Organization [facility] Address [address] [place] [address] Care Team Providers Care Choral Director Name Role Phone Radha Martel PA-C Primary Care Provi mckenna Vinod Robles MD Unavailable [phone] Encounter Details Date Type Department Care Team (Late st Contact Info) Description 10/29/2024 Scanned Document [address] [facility] [address] [place] [phone] Provider, Generic Social History Tobacco Use [...] Info) Description 01/20/2025 11:40 AM EDT [facility] Department Of Hematology/Oncology [address] [place] [phone] Jhoana Wilkins MD [address] [facility] [address] [place] [address] 04/01/2025 9:45 AM EDT Office Visit [facility] Department of Cardiology [place] [address] [place] [phone] Antonio Puente MD [address] [place] [address] 05/20/2025 3:45 PM EDT Office Visit [facility] [address] [place] [phone] Radha Martel PA-C [address] [place] [address] documented as of this encounter Visit Diagnoses Not on filedocumented in this encounter Care Teams Choral Director Relationship Specialty Start Date End Date Radha Martel PA-C [address] [place] [address] PCP - General Internal Medicine 02/24/24 Vinod Robles MD [address] [place] [address] Primary Heat Treat Technician Cardiovascular Disease 09/02/24 documented as of this encounter
--- OUTSIDE RECORDS SUMMARY | 2025-01-07 16:21 | XMS_ITS | Encounter Summary ---
Author Organization [facility] Address [address] [place] [address] Care Team Providers Care Hedis Review Nurse Name Role Phone Radha Martel PA-C Primary Care Provi mckenna Vinod Robles MD Unavailable [phone] Encounter Details Date Type Department Care Team (Late st Contact Info) Description 10/29/2024 Scanned Document [address] [facility] [address] [place] [phone] Provider, Generic Social History Tobacco Use [...] Info) Description 01/20/2025 11:40 AM EDT [facility] Department Of Hematology/Oncology [place] [address] [place] [phone] Jhoana Wilkins MD [address] [facility] [address] [place] [address] 04/01/2025 9:45 AM EDT Office Visit [facility] Department of Cardiology [place] [address] [place] [address] Antonio Puente MD [address] [place] [address] 05/20/2025 3:45 PM EDT Office Visit [facility] [address] [place] [address] Radha Martel PA-C [address] [place] [address] documented as of this encounter Visit Diagnoses Not on filedocumented in this encounter Care Teams Hedis Review Nurse Relationship Specialty Start Date End Date Radha Martel PA-C [address] [place] [address] PCP - General Internal Medicine 02/24/24 Vinod Robles MD [address] [place] [address] Primary Semiconductor Wafers Tester Cardiovascular Disease 09/02/24 documented as of this encounter
--- OUTSIDE RECORDS SUMMARY | 2025-01-07 16:21 | XMS_ITS | Data Portability ---
Author Organization [place] - [facility], [facility], Patient Home Address [address] [place] [phone] Care Team Providers Care Restuarant Crew Worker Name Role Phone NIKITA AZAR Primary Care Provider NIKITA AZAR Referring Provider Assessment No assessment recorded. Plan of Treatment Reminders Order Date Submit Date Provider Last Modified By Organization Details Last Modified Time Details Appointments None recorde d. Lab drug screen, urine 020 02/11/20 20 dmousad Main Office, [address] [place] [address], [phone], 0 18:38:20 Referral None recorde d. Procedures None recorde d. Surgeries None recorde d. Imaging None recorde d. Medication Orders None recorde d. Patient Targets Encounter Date Encounter Id Patient Goals Patient Target Last Modified By Organization Details Last Modified Time 02/11/2020 [id number] lobsterman goal o f Pain Scale Not available Not available Not available lobsterman goal o f Weight Not available Not [...] : negati ve Not Available Main Office [address] [place] [address], [phone], 02/11/2020 13:48:41 02/11/20 20 02/11/2020 drug scree n, urine Cannabinoids :THC negati ve Not Available Main Office [address] [place] [address], [place], [address], 02/11/2020 13:48:41 02/11/20 20 02/11/2020 drug scree n, urine Cocaine: negati ve Not Available Main Office [address] [place] [address], [place], [address], 02/11/2020 13:48:41 02/11/20 20 02/11/2020 drug scree n, urine Methadone: negati ve Not Available Main Office [address] [place] [address], [place], [address], 02/11/2020 13:48:41 02/11/20 20 02/11/2020 drug scree n, urine Opiates: negati ve Not Available Main Office [address] [place] [address], [place], [address], 02/11/2020 13:48:41 02/11/20 20 02/11/2020 drug scree n, urine Oxycodone: negati ve Not Available Main Office [address] [place] [address], [place], [address], 02/11/2020 13:48:41 02/11/20 20 02/11/2020 drug scree n, urine Phenocyclidi ne: negati ve Not Available Main Office [address] [place] [address], [place], [address], 02/11/2020 13:48:41 02/11/20 20 02/11/2020 drug scree n, urine Barbiturates : negati ve Not Available Main Office [address] [place] [address], [place], [address], 02/11/2020 13:48:41 02/11/20 20 02/11/2020 drug scree n, urine Benzodiazepi jacqueline: positi ve Not Available Main Office [address] [address], [place], [address], 02/11/2020 13:48:41 02/11/20 20 02/11/2020 drug scree n, urine Buprenorphin e negati ve Not Available Main Office [address] [address], [place], [address], 02/11/2020 13:48:41 02/11/20 20 02/11/2020 drug scree n, urine Methamphetam ine negati ve Not Available Main Office [address] [address], [place], [address], 02/11/2020 13:48:41 02/11/20 20 02/11/2020 drug scree n, urine MDMA negati ve Not Available Main Office [address] [place] [address], [place], [address], 02/11/2020 13:48:41 02/24/20 20 MRI, lumba r spine , w/o contr ast No observ ation record ed. [email or web address] Not Available 14:53:31 Result Notes None recorded. Problems Name Problem SNOMED Code Status Onset Date Resolution Date Notes Provider Name and Address Organization Details Recorded Time Fibromyalgia 131739373 Active 2019 Esa Alas MD [address] [place] [address], [place], [phone], [facility], [facility] 0 14:27:21 Depressive disorder 88009722 Active 2019 Esa Alas MD [address] [place] [address], [place], [address], [facility], [facility] 0 14:27:53 Anxiety 17148950 Active 2019 Esa Alas MD [address] [place] [address], [address], [facility], [facility] 0 14:28:05 Asthma 933824346 Active 2019 Esa Alas MD [address] [place] [address], [address] [place] [address] 4, [facility], [facility] 0 14:28:42 Problem Notes None recorded. Procedures Surgical History None recorded. Imaging Results Imaging Date Name Status LastModified by Organiz ation Details LastModified Time 02/24/2020 MRI, lumbar spine, w/o contrast [facility] Information not available 05/06/2023 14:53:31 Procedure Notes None recorded. Medical Equipment None Reported. Allergies Allergen ID Allergen Name Allergen Category Reaction Reaction Severity Criticality Documentation Date Start Date Code Code System Note Provider Name and Address Organization Details Recorded Time 1541 clindamyc in Not available Not available Not available Not available 02/11/2020 2582 RxNorm Esa Alas MD [address] [place] [address], [address] [place] [address] 4, [facility], [facility] 0 14:27:01 1542 adhesive tape environme nt,medica tion Not available Not available Not available 02/11/2020 05678 UNK Esa Alas MD [address] [place] [address], [address] [place] [address] 4, [facility], [facility] 0 14:27:10 Medications Name Sig Start Date [...] Response Coronary Artery Disease N Gout N Hernia N Head Trauma/Injury N Thyroid Problems N Depression N COPD N Anemia N Heart Attack (NV) N Ulcers N Diabetes N Anxiety Disorder Y Bleeding Disorder N Arthritis N Tuberculosis N AIDS/HIV N Acid Reflux (GERD) N Cancer N Stroke N Asthma Y Substance Abuse N Back Injury N High Cholesterol N Hepatitis N Liver Disease N Heart Disease N Headaches Y Fibromyalgia Y Hypertension N Osteoporosis N Kidney Disease N Gynecological HistoryNo gynecological history recorded. Obstetrics History GPAL:G 0 P 0 0 0 0 Past Encounters Encounter ID Performer Location Encounter Start Date Encounter Closed Date Diagnosis/Indication Diagnosis SNOMED-CT Code Diagnosis ICD10 Code Diagnosis Note [id number] Esa Alas MD Main Office [address] [place] [address] [address] [place] [address] 02/11/2020 13:08:23 02/11/2020 16:54:21 Long-term current use of opiate analgesic drug 7276031100 99582 Z79.891 Lumbosacra l spondylosis without myelopathy 25022110 M47.817 L>R. weight reduction. HEP. RFR if the pain persist. Degenerati on of lumbar intervertebral disc 27409893 M51.36 weight reduction aquatic [place] Low back pain 052884093 M54.5 HEP [place] Health Concerns Section Related Observation LastModified by Organization Detai ls LastModified Time None Recorded Concern Status LastModified by Organization Details LastModified Time None Recorded Advance Directives Directive None Recorded Payers Encounter Date Sequence Insurance Name Policy Number Policy Adames Covered Member ID Adames Member ID Guarantor Name 02/11/2020 1 [facility] (O) [id number] Deyanira Poor [id number] Deyanira Poor Notes Date Note Type Note Provider Name and Address Organization Details Recorded Time 02/11/2020 text/html Back PainReporte d bypatient.Location :lumbar Quality:sharp;dull ;stiffness Severity:pain level 2-8/10 Duration:chronic Context:atraumatic Alleviating Factors:rest Aggravating Factors:movement/p ositioning; twisting; flexing back; extending back; worse at night Prior Imaging:MRI 30 years RH female with h/o LBP for about one year, was diagnosed for FM on 11/26, s/p L-SIMONE x 2, s/p P.T. She presented today [...] was +ve for Benzo. Esa Alas MD [address] [place] [address],[address], [place], [address], [facility], [facility] 02/13/2020 18:38:24 OBGyn Episode No OBEpisode recorded.
--- OUTSIDE RECORDS SUMMARY | 2025-01-07 16:21 | XMS_ITS | Data Portability ---
Author Organization [place] [facility] Ced[facility] Solorzano [facility] [place] Address [address] [place] [address] Care Team Providers Care Practice Performance Manager Name Role Phone DEBORAH WATST Primary Care Provider Assessment Encounter Date Assessment [...] progress with therapy, sooner for any complications. [email or web address] Not available 04/20/2023 15:01:29 Plan of Treatment [...] more view 2022 023 [email or web address] [facility], [address], [place], [address], 11:19:47 Medication Orders Lodine 400 mg tablet 2022 023 [id number], [address] [facility], [place], [address], 09:13:20 Patient TargetsNo targets recorded. Patient Instructions Encounter Date Encounter Id Patient Instructions Last Modified By Organization Details Last Modified Time 04/17/2023 [id number] Views of the {{Right Left* Bila teral}} shoulder were obtained in the [facility]} } office including AP, Grashey and outlet views. Good bone mineralization. No significant degenerative changes in the AC joint with no widening. Well maintained Glenohumoral joint space. No abnormal calcifications in the lateral shoulder. No evidence of acute injury or fracture. Interpretation by: Jayce García PA-C [email or web address] Not available 04/17/2023 09:14:44 Reason for Referral [...] Details Recorded Time Subluxation of shoulder joint 153280863 Active 2022 JAYCE GARCÍA PA-C [address], [place], [address] [place] [facility] 09:11:52 Problem Notes None recorded. Procedures Surgical History Date Name Laterality Status Provider Name and Address Organization Details Recorded Time Gallbladder Surgery completed Kisha Howard [place] - [facility] 04/17/2023 09:04:13 delivery completed Kisha Howard [place] - [facility] 04/17/2023 09:04:29 Tonsillectomy/A denoidectomy completed Kisha Howard [place] - [facility] 04/17/2023 09:04:45 operation on heart completed Kisha Howard [place] - [facility] 04/17/2023 09:04:54 Imaging Results None recorded. Procedure Notes None recorded. Medical Equipment None Reported. Allergies Allergen ID Allergen Name Allergen Category Reaction Reaction Severity Criticality Documentation Date Start Date Code Code System Note Provider Name and Address Organization Details Recorded Time 6107 clindamyc in Not available Not available Not available Not available 04/17/2023 2582 RxNorm Kisha Howard [place], [place] - [facility] 09:00:19 Medications Name Sig Start Date [...] Updated DateTime 04/17/2023 142.24 cm 37 kg/m2 35311.74 g Kisha Howard [facility] 04/17/2023 09:02:48 Social History Question Answer Notes LastModified by Organizat ion Details LastModified Time Tobacco Smoking Status Former Smoker Kisha Anita [place], [place] - [facility] 04/17/2023 09:03:11 What Is Your Level Of Alcohol Consumption? None [email or web address] Information not available 04/17/2023 Do You Use Any Illicit Or Recreational Drugs? No [email or web address] Information not available 04/17/2023 Do You Or Have You Ever Used Any Other Forms Of Tobacco Or Nicotine? No [email or web address] Information not available 04/17/2023 Sex: Unknown Functional Status None recorded. Mental Status None recorded. Family History Nothing Reported. Medical History Condition Response Asthma Y Gynecological HistoryNo gynecological history recorded. Obstetrics History GPAL:G 0 P 0 0 0 0 Past Encounters Encounter ID Performer Location Encounter Start Date Encounter Closed Date Diagnosis/Indication Diagnosis SNOMED-CT Code Diagnosis ICD10 Code Diagnosis Note [id number] JAYCE GARCÍA PA-C [facility] [address] [place] [address] 04/17/2023 08:41:33 04/17/2023 11:19:47 Pain of left shoulder joint 9535974164 1329812 M25.512 Subluxatio n of shoulder joint 579393982 S43.022A Health Concerns Section Related Observation LastModified by Organization Detai ls LastModified Time None Recorded Concern Status LastModified by Organization Details LastModified Time None Recorded Advance Directives Directive None Recorded Payers Encounter Date Sequence Insurance Name Policy Number Policy Adames Covered Member ID Adames Member ID Guarantor Name 04/17/2023 1 [place] [employer] [id number] 2 Osiel Araceli [id number] Deyaniracindy Charles Notes Date Note Type [...] JAYCE GARCÍA PA-C [address], [place], [address], [place] [facility] 04/20/2023 15:01:37 OBGyn Episode No OBEpisode recorded.
--- OUTSIDE RECORDS SUMMARY | 2025-01-07 16:21 | XMS_ITS | Clinical Summary ---
Author Organization [facility] Address [address] [place] [address] Care Team Providers Care Wood Flooring Specialist Name Role Phone Radha Martel Primary Care Provider [phone] Allergies Active Allergy Reactions Criticality Noted Date Comments Adhesive Tape-Silicones Rash Medium 07/26/2021 Clindamycin Anaphylaxis High 07/26/2021 Venlafaxine 06/01/2020 Other Reaction(s): Other (See Comments) Suicidal ideation Medications erenumab-aooe (Aimovig Autoinjector) 140 mg/mL injection INJECT 140 MG SUBCUTANEOUSLY ONCE FOR 30 DAYS 04/15/20 23 Active armodafiniL (NUVIGIL) 150 mg tablet Take 200 mg by mouth daily. 01/31/20 23 Active etonogestrel-elut ing contraceptive device 68 mg implant subdermal implant Inject 68 mg under the skin. 06/06/20 15 Active lamoTRIgine (LaMICtal) 25 mg tablet Take 4 tablets (100 mg total) by mouth daily. 01/25/20 23 Active magnesium oxide (MAG-OX) 400 mg (241.3 elemental magnesium) tablet 03/05/20 23 Active methocarbamoL (ROBAXIN) 750 mg tablet TAKE 1 TABLET BY MOUTH EVERY 6 HOURS NEEDED FOR SPASMS 10/06/20 23 Active predniSONE (DELTASONE) 2.5 mg tablet 2 PO Qam 09/11/20 23 Active pregabalin (LYRICA) 150 mg capsule Take 1 capsule (150 mg total) by mouth 2 (two) times a day. 10/10/19 24 Active QUEtiapine (SEROquel) 50 mg tablet Take 2 tablets (100 mg total) by mouth every night at bedtime. 06/29/20 Active riboflavin (VITAMIN B2) 400 mg tablet Take 1 tablet by mouth daily. 09/27/20 Active valACYclovir (VALTREX) 500 mg tablet Take 1 tablet (500 mg total) by mouth daily. 04/15/20 Active cariprazine (Vraylar) 1.5 mg capsule Take 1 capsule (1.5 mg total) by mouth daily. 02/29/20 Active Active Problems Problem Noted Date Diagnosed [...] opinion from another surgeon versus referral to [facility] in [place]. She would like referral to the endometriosis [...] Recorded Sex Assigned at Not on file Legal Sex Female 3:31 AM EST Gender Identity Not on file Sexual Orientation [...] - 2023-2 5 season) 2024 Influenza Vaccine (Season Ended) 2025 08/06/2019, 07/14/2012 Cholesterol Screening (Lipid Panel) 03/15/2028 03/15/2023 [...] patient's age to complete this topic Meningococcal B Vacine Aged Out No lo nger eligible based on patient's age to complete [...] * Lipid panel (03/15/2023) LDL/HDL Ratio 2 <=5 Triglycerides 55 <=150 mg/dL Cholesterol 112 <=200 mg/dL HDL 56 >=50 mg/dL LDL Cholesterol 42 <=100 mg/dL Blood Venous blood specimen / Unknown Historical Provider LAB BLOOD ORDERABLES Antonia l Result * Pap smear (01/09/2021) 01/09/2021 Narrative HISTORICAL TESTING LAB RESULTING AGENCY - 2021 11:45 AM EDT [id number] THINPREP PAP, IMAGED: NEGATIVE FOR SQUAMOUS INTRAEPITHELIAL LESION AND MALIGNANCY . JERICA ZARAGOZA(ASCP) (CASE ELECTRONICALLY SIGNED 01 11 2021) ADEQUACY: SATISFACTORY ENDOCERVICAL/TRANSFORMATION ZONE COMPONENT PRESENT. SOURCE: THINPREP PAP HPV IF ASCUS, CERVICAL, IMAGED CLINICAL INFORMATION: HPV IF DIAGNOSIS OF ASCUS. PAP HX NEG, Z12.4 Luz Maria Borja [facility] LAB CYTOLOGY ORDERABLES Fin al Result HISTORICAL TESTING LAB RESULTING AGENCY from Last 3 Months or Most Recently Relevant to Health Maintenance Care Teams Wood Flooring Specialist Relationship Specialty Start Date End Date Radha Martel PA [address] [facility] [address] [place] [address] PCP - General 02/24/24
--- OUTSIDE RECORDS SUMMARY | 2025-01-07 16:21 | XMS_ITS | Encounter Summary ---
Author Organization Formerly [facility] Address [address] [place] [address] Care Team Providers Care Steel Wool Machine Operator Name Role Phone Radha Martel PA-C Primary Care Provi mckenna Vinod Robles MD Unavailable Encounter Details Date Type Department Care Team (Late st Contact Info) Description 09/15/2024 Scanned Document [address] [phone] Otolaryngology, Scan Social History Tobacco Use Types [...] Info) Description 01/20/2025 11:40 AM EDT Telemedicine [facility] Department Of Hematology/Oncology [place] [address] [place] [phone] Jhoana Wilkins MD [address] [place] [address] 04/01/2025 9:45 AM EDT Office Visit [facility] Department of Cardiology [place] [address] [place] [address] Antonio Puente MD [address] [place] [address] 05/20/2025 3:45 PM EDT Office Visit [facility] [address] [place] [address] Radha Martel PA-C [address] [place] [address] documented as of this encounter Visit Diagnoses Not on filedocumented in this encounter Care Teams Steel Wool Machine Operator Relationship Specialty Start Date End Date Radha Martel PA-C [address] [place] [address] PCP - General Internal Medicine 02/24/24 Vinod Robles MD [address] [place] [address] Primary Autotransfusionist Cardiovascular Disease 09/02/24 documented as of this encounter
--- OUTSIDE RECORDS SUMMARY | 2025-01-07 16:21 | XMS_ITS | Encounter Summary ---
Author Organization [facility] Address [address] [place] [address] Care Team Providers Care Operational Test Mechanic Name Role Phone Radha Martel Primary Care Provider [phone] Encounter Details Date Type Department Care Team (Late st Contact Info) Description 11/03/2020 myChart Message [facility] [address] [place], [place] [phone] Kalie Clark MD [address] [place], [place] [phone] Non-Urgent Medical Question Social History Tobacco Use [...] on filedocumented in this encounter Care Teams Operational Test Mechanic Relationship Specialty Start Date End Date Radha Martel [address] [place] [address] PCP - General Internal Medicine 03/30/24 documented as of this encounter
--- OUTSIDE RECORDS SUMMARY | 2025-01-07 16:21 | XMS_ITS | Encounter Summary ---
Author Organization [facility] Address [address] [place] [address] Care Team Providers Care Building Carpenter Helper Name Role Phone Radha Martel PA-C Primary Care Provi mckenna Vinod Robles MD Unavailable [phone] Encounter Details Date Type Department Care Team (Late st Contact Info) Description 03/12/2024 Scanned Document [facility] Department Of Hematology/Oncology [place] [address] [place] [phone] Jhoana Wilkins MD [address] [place] [address] Social History Tobacco Use Types Packs/Day Years [...] Info) Description 01/20/2025 11:40 AM EDT Telemedicine [facility] Department Of Hematology/Oncology [place] [address] [place] [phone] Jhoana Wilkins MD [address] [place] [address] 04/01/2025 9:45 AM EDT Office Visit [facility] Department of Cardiology [place] [address] [place] [address] Antonio Puente MD [address] [place] [address] 05/20/2025 3:45 PM EDT Office Visit [facility] [address] [place] [address] Radha Martel PA-C [address] [phone] documented as of this encounter Procedures Procedure Name Priority Date/Time Associated Diagnosis Comments LAB RESULT 03/12/2024 4:09 PM EDT documented in this encounter Results * LAB RESULT (03/12/2024 4:09 PM EDT) Jhoana Wilkins MD HX AMB PROCEDURES documented in this encounter Visit Diagnoses Not on filedocumented in this encounter Care Teams Building Carpenter Helper Relationship Specialty Start Date End Date Radha Martel PA-C [address] [place] [address] PCP - General Internal Medicine 02/24/24 Vinod Robles MD [address] [place] [address] Primary Teachers Aide Cardiovascular Disease 09/02/24 documented as of this encounter
--- OUTSIDE RECORDS SUMMARY | 2025-01-07 16:21 | XMS_ITS | Referral Summary ---
Author Organization [facility] Address [address] [place] [address] Care Team Providers Care Wax Coating Machine Tender Name Role Phone Radha Martel Primary Care Provider [phone] Allergies Active Allergy Reactions Criticality Noted Date Comments Adhesive Unknown 01/17/2020 tape Clindamycin Hcl Anaphylaxis High 10/23/2011 Tapentadol Rash High 08/04/2014 Venlafaxine Unknown 06/01/2020 Suicidal ideation Medications valACYclovir (VALTREX) 500 mg tablet Take 1 tablet by mouth daily. 1 Active triamcinolone (NASACORT) 55 mcg nasal inhaler U 2 SPRAYS IEN D 0 Active Mi-Acid Gas Relief,simethic on, 80 mg chewable tablet MODELING AND SIMULATION ANALYST ONE T Q 6 H PRN 0 [...] on file Insurance HSNO/FREE CARE Care Teams Wax Coating Machine Tender Relationship Specialty Start Date End Date Radha Martel [address] [place] [address] PCP - General Internal Medicine 03/30/24
--- OUTSIDE RECORDS SUMMARY | 2025-01-07 16:21 | XMS_ITS | Encounter Summary ---
Author Organization Formerly [facility] Address [address] [place] [address] Care Team Providers Care Supervisor Instant Potato Processing Name Role Phone Radha Martel PA-C Primary Care Provi mckenna Vinod Robles MD Unavailable [phone] Encounter Details Date Type Department Care Team (Late st Contact Info) Description 10/29/2024 11:45 AM EST Hospital Encounter [facility] [address] [place] [phone] Social History Tobacco Use Types Packs/Day Years [...] Info) Description 01/20/2025 11:40 AM EDT Telemedicine [facility] Physicians Department Of Hematology/Oncology [address] Conner Gomez [address] [place] [phone] Jhoana Wilkins MD [address] [facility] [address] 04/01/2025 9:45 AM EDT Office Visit [facility] Department of Cardiology [place] [address] [place] [address] Antonio Puente MD [address] [place] [address] 05/20/2025 3:45 PM EDT Office Visit [facility] [address] [place] [phone] Radha Martel PA-C [address] [place] [address] documented as of this encounter Procedures Procedure [...] your patient to us, Jassi Boone MD [id number] (Electronically Signed - 10/29/2024 12:28) Copy: PATIENT [...] Boone MD 10/29/2024 12:28 PM EST RPWorkstation: [id number] Thank you for referring your patient to us, Jassi Boone MD [id number] (Electronically Signed - 10/29/2024 12:28) Copy: PATIENT , JANAK Longoria IMPardeep DIAGNOSTIC IMAGI NG ORDERABLES documented in this encounter Visit Diagnoses Not on filedocumented in this encounter Care Teams Supervisor Instant Potato Processing Relationship Specialty Start Date End Date Radha Martel PA-C [address] [place] [address] PCP - General Internal Medicine 02/24/24 Vinod Robles MD [address] [place] [address] Primary Manager Materials Management Cardiovascular Disease 09/02/24 documented as of this encounter
--- OUTSIDE RECORDS SUMMARY | 2025-01-07 16:21 | XMS_ITS | Encounter Summary ---
Author Organization [facility] Address [address] [place] [address] Care Team Providers Care Fire Eater Name Role Phone Radha Martel PA-C Primary Care Provi mckenna Vinod Robles MD Unavailable [phone] Reason for Visit * Reason Comments Referral Encounter Details Date Type Department Care Team (Late st Contact Info) Description 07/16/2024 Telephone [facility] [address] [place] [address] Radha Martel PA-C [address] [place] [address] Referral Social History Tobacco Use Types Packs/Day [...] Info) Description 01/20/2025 11:40 AM EDT Telemedicine [facility] Physicians Department Of Hematology/Oncology [place] [address] [place] [phone] Jhoana Wilkins MD [address] [place] [address] 04/01/2025 9:45 AM EDT Office Visit [facility] Department of Cardiology [place] [address] [place] [phone] Antonio Puente MD [address] [place] [address] 05/20/2025 3:45 PM EDT Office Visit [facility] [address] [place] [address] Radha Martel PA-C [address] [place] [phone] documented as of this encounter Visit Diagnoses Not on filedocumented in this encounter Care Teams Fire Eater Relationship Specialty Start Date End Date Radha Martel PA-C [address] [place] [address] PCP - General Internal Medicine 02/24/24 Vinod Robles MD [address] [place] [address] Primary Mobile Web Application Developer Cardiovascular Disease 09/02/24 documented as of this encounter
--- OUTSIDE RECORDS SUMMARY | 2025-01-07 16:21 | XMS_ITS | Encounter Summary ---
Author Organization [facility] Address [address] [place] [address] Care Team Providers Care Distiller Name Role Phone Radha Martel PA-C Primary Care Provi mckenna Vinod Robles MD Unavailable [phone] Encounter Details Date Type Department Care Team (Late st Contact Info) Description 03/06/2024 Scanned Document [facility] Physicians Department Of Hematology/Oncology [place] [address] [place] [phone] Jhoana Wilkins MD [address] [place] [address] Social History Tobacco Use Types Packs/Day Years [...] Info) Description 01/20/2025 11:40 AM EDT Telemedicine [facility] Physicians Department Of Hematology/Oncology [place] [address] [place] [phone] Jhoana Wilkins MD [address] [place] [address] 04/01/2025 9:45 AM EDT Office Visit [facility] Department of Cardiology [place] [address] [place] [phone] Antonio Puente MD [address] [place] [address] 05/20/2025 3:45 PM EDT Office Visit [facility] [address] [place] [address] Radha Martel PA-C [address] [place] [phone] documented as of this encounter Procedures Procedure Name Priority Date/Time Associated Diagnosis Comments LAB RESULT 03/06/2024 7:06 PM EDT documented in this encounter Results * LAB RESULT (03/06/2024 7:06 PM EDT) Jhoana Wilkins MD HX AMB PROCEDURES documented in this encounter Visit Diagnoses Not on filedocumented in this encounter Care Teams Distiller Relationship Specialty Start Date End Date Radha Martel PA-C [address] [place] [address] PCP - General Internal Medicine 02/24/24 Vinod Robles MD [address] [place] [address] Primary Printed Circuit Board Assembly Repairer Cardiovascular Disease 09/02/24 documented as of this encounter
--- OUTSIDE RECORDS SUMMARY | 2025-01-07 16:21 | XMS_ITS | Encounter Summary ---
Author Organization [facility] Address [address] [place], [place] [id number] Care Team Providers Care Pediatric Neurologist Name Role Phone Radha Martel PA-C Primary Care Provi mckenna Vinod Robles MD Unavailable [phone] Encounter Details Date Type Department Care Team (Late st Contact Info) Description 04/02/2024 Scanned Document [address] [phone] Rdaha Martel PA-C [address] [place] [address] Social History Tobacco Use Types Packs/Day Years [...] Info) Description 01/20/2025 11:40 AM EDT Telemedicine [facility] Physicians Department Of Hematology/Oncology [address] Conner Gomez [address] [place] [phone] Jhoana Wilkins MD [address] [place] [address] 04/01/2025 9:45 AM EDT Office Visit [facility] Department of Cardiology [place] [address] [place] [address] Antonio Puente MD [address] [place] [address] 05/20/2025 3:45 PM EDT Office Visit [facility] [address] [place] [address] Radha Martel PA-C [address] [place] [address] documented as of this encounter Visit Diagnoses Not on filedocumented in this encounter Care Teams Pediatric Neurologist Relationship Specialty Start Date End Date Radha Martel PA-C [address] [place] [address] PCP - General Internal Medicine 02/24/24 Vinod Robles MD [address] [place] [address] Primary Dialysis Tech Cardiovascular Disease 09/02/24 documented as of this encounter
--- OUTSIDE RECORDS SUMMARY | 2025-01-07 16:21 | XMS_ITS | Encounter Summary ---
Author Organization Formerly [facility] Address [address] [place] [address] Care Team Providers Care Maintenance Service Supervisor Name Role Phone Radha Martel PA-C Primary Care Provi mckenna Vinod Robles MD Unavailable [phone] Encounter Details Date Type Department Care Team (Late st Contact Info) Description 08/19/2024 Scanned Document [address] [phone] Radha Martel PA-C [address] [place] [address] Social History Tobacco Use Types Packs/Day Years [...] Info) Description 01/20/2025 11:40 AM EDT Telemedicine [facility] Physicians Department Of Hematology/Oncology [address] Conner [address] [place] [address] Jhoana Wilkins MD [address] [place], [place] [address] 04/01/2025 9:45 AM EDT Office Visit [facility] Department of Cardiology [place] [address] [place] [address] Antonio Puente MD [address] [place] [address] 05/20/2025 3:45 PM EDT Office Visit [facility] [address] [place] [address] Radha Martel PA-C [address] [place] [phone] documented as of this encounter Visit Diagnoses Not on filedocumented in this encounter Care Teams Maintenance Service Supervisor Relationship Specialty Start Date End Date Radha Martel PA-C [address] [place] [address] PCP - General Internal Medicine 02/24/24 Vinod Robles MD [address] [place] [address] Primary Florist Supplies Salesperson Cardiovascular Disease 09/02/24 documented as of this encounter
--- OUTSIDE RECORDS SUMMARY | 2025-01-07 16:21 | XMS_ITS | Encounter Summary ---
Author Organization [facility] Address [address] [place] [address] Care Team Providers Care Floor Waxer Name Role Phone Radha Martel Primary Care Provider [phone] Encounter Details Date Type Department Care Team (Late st Contact Info) Description 12/02/2020 Orders Only [facility] [address] [place] [phone] Kalie Clark MD [address] [place] [phone] Social History Tobacco Use Types Packs/Day Years [...] of this encounter Procedures * Due to [place] Reppify law, this organization might not be sharing negative HIV tests. Procedure Name Priority Date/Time Associated Diagnosis Comments NEURODIAGNOSTIC - SCANNED Routine 04/06/2020 documented in this encounter Results * Due to [place] Reppify law, this organization might not be sharing negative HIV tests. * NEURODIAGNOSTIC - SCANNED (04/06/2020) Kalie Clark MD SCANNED PROCEDURES Final Res ult documented in this encounter Visit Diagnoses Not on filedocumented in this encounter Care Teams Floor Waxer Relationship Specialty Start Date End Date Radha Martel [address] [place] [address] PCP - General Internal Medicine 03/30/24 documented as of this encounter
--- OUTSIDE RECORDS SUMMARY | 2025-01-07 16:21 | XMS_ITS | Clinical Summary ---
Author Organization Formerly [facility] Address [address] [place] [address] Care Team Providers Care Manufacturing Mechanic Name Role Phone Radha Martel Primary Care Provider [phone] Allergies Active Allergy Reactions Criticality Noted Date [...] opinion from another surgeon versus referral to [facility] Endometriosis clinic in [place]. She would like referral to the endometriosis [...] Advance Directives For more information, please contact: [phone] Latest Code Status on File Code Status [...] way: discussion with patient . Care Teams Manufacturing Mechanic Relationship Specialty Start Date End Date Radha Martel PA [address] [place] [address] PCP - General Physician Lock Assembler 02/24/24
--- OUTSIDE RECORDS SUMMARY | 2025-01-07 16:21 | XMS_ITS | Encounter Summary ---
Author Organization [facility] Address [address] [place] [address] Care Team Providers Care Senior Director Finance Name Role Phone Radha Martel PA-C Primary Care Provi mckenna Vinod Robles MD Unavailable [phone] Encounter Details Date Type Department Care Team (Late st Contact Info) Description 03/10/2024 Scanned Document [facility] Department Of Hematology/Oncology [place] [address] [address] [place] [phone] Jhoana Wilkins MD [address] [place] [address] Social History Tobacco Use Types Packs/Day Years [...] Info) Description 01/20/2025 11:40 AM EDT Telemedicine [facility] Physicians Department Of Hematology/Oncology [place] [address] [address] [place] [phone] Jhoana Wilkins MD [address] [place] [address] 04/01/2025 9:45 AM EDT Office Visit [facility] Physicians Department of Cardiology [place] [address] [place] [address] Antonio Puente MD [address] [place] [address] 05/20/2025 3:45 PM EDT Office Visit [facility] [address] [place] [address] Radha Martel PA-C [address] [place] [phone] documented as of this encounter Visit Diagnoses Not on filedocumented in this encounter Care Teams Senior Director Finance Relationship Specialty Start Date End Date Radha Martel PA-C [address] [place] [address] PCP - General Internal Medicine 02/24/24 Vinod Robles MD [address] [place] [address] Primary Senior Administrative Support Cardiovascular Disease 09/02/24 documented as of this encounter
--- OUTSIDE RECORDS SUMMARY | 2025-01-07 16:21 | XMS_ITS | Encounter Summary ---
Author Organization [facility] Address [address] [place] [address] Care Team Providers Care Tank Farm Attendant Name Role Phone Radha Martel Primary Care Provider [phone] Encounter Details Date Type Department Care Team (Late st Contact Info) Description 12/02/2020 myChart Message [facility] [address] [place] [phone] Kalie Clark MD [address] [place] [phone] RE: Non-Urgent Medical Question Social History Tobacco [...] Specialty Start Date End Date Radha Martel [address] [place] [address] PCP - General Internal Medicine 03/30/24 documented as of this encounter
--- OUTSIDE RECORDS SUMMARY | 2025-01-07 16:21 | XMS_ITS | Encounter Summary ---
Author Organization [facility] Address [address] [place] [address] Care Team Providers Care Printing Machine Operator Tape Rules Name Role Phone Radha Martel PA-C Primary Care Provi mckenna Vinod Robels MD Unavailable [phone] Reason for Visit * Reason Comments Other Encounter Details Date Type Department Care Team (Late Contact Info) Description 03/23/2024 Telephone [facility] [address] [place] [address] Radha Martel PA-C [address] [place] [address] Other Social History Tobacco Use Types Packs/Day [...] Info) Description 01/20/2025 11:40 AM EDT [facility] Department Of Hematology/Oncology [address] [phone] Jhoana Wilkins MD [address] [facility] [address] [place], [place] [address] 04/01/2025 9:45 AM EDT Office Visit [facility] Physicians Department of Cardiology [place] [address] [place] [address] Antonio Puente MD [address] [place] [address] 05/20/2025 3:45 PM EDT Office Visit [facility] [address] [place] [address] Radha Martel PA-C [address] [place] [address] documented as of this encounter Visit Diagnoses Not on filedocumented in this encounter Care Teams Printing Machine Operator Tape Rules Relationship Specialty Start Date End Date Radha Martel PA-C [address] [place] [phone] PCP - General Internal Medicine 02/24/24 Vinod Robles MD [address] [place] [address] Primary Molded Goods Controls Operator Cardiovascular Disease 09/02/24 documented as of this encounter
--- OUTSIDE RECORDS SUMMARY | 2025-01-07 16:21 | XMS_ITS | Encounter Summary ---
Author Organization [facility] Address [address] [place] [address] Care Team Providers Care Electric Motor Repairing Supervisor Name Role Phone Radha Martel PA-C Primary Care Provi mckenna Vinod Robles MD Unavailable [phone] Encounter Details Date Type Department Care Team (Late st Contact Info) Description 03/13/[address] [facility] [address] [place] [address] Radha Martel PA-C [address] [place] [address] Social History Tobacco Use Types Packs/Day Years [...] Info) Description 01/20/2025 11:40 AM EDT Telemedicine [facility] Department Of Hematology/Oncology [place] [address] [place] [phone] Jhoana Wilkins MD [address] [place] [address] 04/01/2025 9:45 AM EDT Office Visit [facility] Department of Cardiology [place] [address] [place] [phone] Antonio Puente MD [address] [place] [address] 05/20/2025 3:45 PM EDT Office Visit [facility] [address] [place] [address] Radha Martel PA-C [address] [place] [address] documented as of this encounter Visit Diagnoses Not on filedocumented in this encounter Care Teams Electric Motor Repairing Supervisor Relationship Specialty Start Date End Date Radha Martel PA-C [address] [place] [address] PCP - General Internal Medicine 02/24/24 Vinod Robles MD [address] [place] [address] Primary Stapler Coil Unit Cardiovascular Disease 09/02/24 documented as of this encounter
--- OUTSIDE RECORDS SUMMARY | 2025-01-07 16:21 | XMS_ITS | Clinical Summary ---
Author Organization [facility] Address [address] [place] [address] Care Team Providers Care Library Associate Name Role Phone Radha Martel Primary Care Provider [phone] Allergies Active Allergy Reactions Criticality Noted Date Comments Adhesive Unknown 01/17/2020 tape Clindamycin Hcl Anaphylaxis High 10/23/2011 Tapentadol Rash High 08/04/2014 Venlafaxine Unknown 06/01/2020 Suicidal ideation Medications valACYclovir (VALTREX) 500 mg tablet Take 1 tablet by mouth daily. 1 Active triamcinolone (NASACORT) 55 mcg nasal inhaler U 2 SPRAYS IEN D 0 Active Mi-Acid Gas Relief,simethic on, 80 mg chewable tablet TELECOMMUNICATIONS OFFICER ONE T Q 6 H PRN 0 [...] Pediat leola (0-5 Years) and At-Risk Patients (6-50 Years) (2 of 2 - PCV) 06/02/2021 06/02/2020 Cervical Cancer Screening 01/10/2024 Pap Smear 01/10/2024 01/09/2021 COVID-19 Vaccine ( - 2023- season) 2024 Alcohol/Substance Use Screening 10/07/2024 Depression Screening and Follow-Up 10/07/2024 Social Drivers of Health [place] ual Screening 10/07/2024 Influenza Vaccine (Season Ended) 2025 08/06/20 19, 07/14/2012 DTaP,Tdap,and Td Vaccines (4 - Td or Tdap) 03/22/2033 03/22/2023, 07/14/2012, 09/19/2011 RSV Vaccine (60+ years old a nd patients) (1 - 1-dose 75+ series) 01/10/2067 Insurance HSNO/FREE CARE Care Teams Library Associate Relationship Specialty Start Date End Date Radha Martel [address] [place] [address] PCP - General Internal Medicine 03/30/24
== END 2025-01-07 14:52 | disposition home or self-care (01) ==
LOC: HO.NEURO 14:51
PROVIDERS: Visit Provider Physician Assistant Medical
DX: R20.0 Anesthesia of skin (principal); R20.2 Paresthesia of skin
CPT/HCPCS: 95860; 95886; 95909

== ENCOUNTER → 2025-01-07 14:53 | Outpatient (BNV) | payer BC, SELFPAY | PROVIDERS: Visit Provider Physical Medicine & Rehabilitation | DX: R20.0 Anesthesia of skin (principal); R20.2 Paresthesia of skin; G62.89 Other specified polyneuropathies | CPT/HCPCS: 95886; 95909 ==

== ENCOUNTER 2025-02-09 13:30 | Outpatient (AMB) | payer BC, SELFPAY ==
[2025-02-09 13:38] VITALS: BMI 43.0
--- NOTE | 2025-02-09 13:38 | A.OFFVIS_ITS ---
Vital Signs 02/09/25 13:38 Height 4 ft 8 in Weight 192 lb BMI 43.0 Intake Visit Reasons: BOTOX Intake Note: Patient presents for botox follow up Allergies clindamycin [CLINDAMYCIN] Allergy (Severe, Verified 02/09/25 13:41) ANAPHALAXIS amoxicillin Allergy (Intermediate, Verified 02/09/25 13:41) Swelling venlafaxine [From Effexor] Allergy (Mild, Verified 02/09/25 13:41) Unknown adhesive tape Allergy (Unknown, Verified 02/09/25 13:41) CHANGES COLOR OF SKIN PERMANENTLY lamotrigine [From Lamictal] Adverse Reaction (Verified 02/09/25 13:41) Unknown Clindamycin HCl Allergy (Unknown, Uncoded 02/09/25 13:41) unknown Medication List - Last Reconciled 02/09/25 by Fabiana Pinto MD armodafinil 250 mg PO QAM 30 days baclofen 10 mg (2 x 5 mg) PO BID PRN 30 days cariprazine (Vraylar) 1.5 mg PO DAILY cholecalciferol (vitamin D3) 125 mcg PO QWEEK 12 weeks dextroamphetamine-amphetamine 15 mg ER (Adderall XR) 15 mg PO QAM MDD 15mg PO dicyclomine 10 mg PO QID eszopiclone (Lunesta) 3 mg PO BEDTIME 30 days etonogestrel (Nexplanon) subdermal famotidine 20 mg PO BID fluticasone furoate 27.5 mcg/actuation 1 spray intranasal DAILY lamotrigine 50 mg PO DAILY fqczhg-jgbyzjou-tmjgdia 36,000-114,000- 180,000 unit (Creon) 1 cap PO BID melatonin 5 mg PO BEDTIME PRN 90 days onabotulinumtoxinA (Botox) 200 units IM ONCE 12 weeks prochlorperazine maleate (Compazine) 10 mg PO Q8H PRN 30 days quetiapine 100 mg PO DAILY ubrogepant (Ubrelvy) 50 - 100 mg (0.5 - 1 x 100 mg) PO ONCE PRN 30 days valacyclovir 500 mg PO DAILY HPI Comments Details: ? 35y/o female comes for treatment of migraines with botox. ??? Most frequent reported adverse reactions following injection of botox for chronic migraine include neck pain (9%), headache(5%), eyelid ptosis(4%), migraine(4%), muscular weakness(4%), musculuskeletal stiffness(4%), bronchitis(3%), injection site pain (3%), musculoskeletal pain(3%), myalgia(3%), facial paresis(2%), HTN(2%) and muscle spasms(2%) were discussed in detail. ??? Botulinum toxin typeA 200units Lot no [id number] expiration January 2027 was diluted with 4 cc of normal saline . ??? Muscles injected- ??? Frontalis 4 sites ??? Procerus 1 site ??? Accounts Executive- 2 sites ??? Temporalis- 8 sites ??? Occipitalis- 6 sites ??? Cervical paraspinals- 4 sites ??? Trapezius- 6 sites- 10 units each ??? 5 units each in 31 site ??? Total use- 185units ??? Discarded-15units PFSH Medical History Chronic migraine without aura, intractable, without status migrainosus Chronic migraine without aura [place] (hard of hearing) Bipolar depression Insomnia H/O migraine Asthma Fibromyalgia Anxiety Surgical History Hx of cholecystectomy Hx of eye surgery Hx of eye surgery Hx of eye surgery Bariatric surgery status Family History Father Substance use disorder Mental health disorder Mother Substance use disorder Mental health disorder Social History Housing: Apartment Alcohol intake: current Alcohol intake frequency: holidays/special occasions only Patient Tobacco Use Status: Former Tobacco user e-Cigarette/Vaping Use: Currently Using service: No Current occupational status: employed Cognitive needs: No Hearing needs: No Vision needs: Yes Physical Exam Vital Signs: BMI result Body Mass Index 43.0 Const General: cooperative and no acute distress Orientation/consciousness: patient oriented x3 HEENT Head: Yes normocephalic Resp Effort & Inspection: normal respiratory effort and able to speak in complete sentences Neuro General: patient oriented x3, gait normal and CN's II-XI intact bilaterally Cognition (Neuro): normal cognition Motor exam (neuro): 5/5 motor strength present throughout Office Procedures Botulinum toxin Injection 17520 - Migraine Procedure code (CPT) selection complete Office Meds onabotulinumtoxinA 200 unit solution for injection Performing Provider: Fabiana Pinto MD Performing Location: [facility] Administered by: Fabiana Pinto MD on 02/09/25 14:07 Dose Route Admin Location Dispensed Lot Number Expiration Date [facility] Hydro Excavation Operator 185 unit subcut 200 units [id number] ALLERGAN/BOTOX Comments: see HPI Assessment & Plan Assessment & Plan (1) Chronic migraine without aura, intractable, without status migrainosus: Code(s): G43.719 - Chronic migraine without aura, intractable, without status migrainosus Category: Medical Plan Patient tolerated the procedure well SHe will call with any side effects Orders: Orders AMB Botulinum toxin Injection Today G43.719 - Chronic migraine without aura, intractable, without status migrainosus Medications: New onabotulinumtoxinA 200 units subcut ONCE 1 ea 0RF Migraine G43.719 - Chronic migraine without aura, intractable, without status migrainosus Coding Level of Care Code Est Pt Level 1 (24024) Diagnoses Chronic migraine without aura, intractable, without status migrainosus G43.719 CPT Codes Botox Injection - Botox 3: 66842 - Migraine ([id number])
--- OUTSIDE RECORDS SUMMARY | 2025-02-09 14:47 | XMS_ITS | Encounter Summary ---
Author Organization [facility] Address [address] [place] [address] Care Team Providers Care Metal Spraying Machine Operator Name Role Phone Siddhartha Oakes MD Primary Care Provider [phone] Martha Grey APRN Primary Care Provider Unav ailable Martha Grey APRN Primary Care Provider Unav ailable Mike Burns NP Primary Care Provider Unavail able Martha Grey APRN Primary Care Provider Unav ailable Encounter Details Date Type Department Care Team Description 08/13/2019 Old Medical Records Medical Records [address] [place] [address] Abstract, Provider Social History Tobacco Use Types [...] on filedocumented in this encounter Care Teams Metal Spraying Machine Operator Relationship Specialty Start Date End Date Siddhartha Oakes MD [address] [place] [address] PCP - General Internal Medicine 05/06/19 01/12/20 Martha Grey APRN [address] [place] [address] PCP - General Internal Medicine 01/13/20 01/19/20 Matrha Grey, PANFILO [address] [place] [address] PCP - General Internal Medicine 01/20/20 05/16/22 Mike Burns NP [address] [place] [address] PCP - General Family Practice 05/17/22 11/20/22 Martha Grey APRN [address] [place] [address] PCP - General Internal Medicine 11/21/22 documented as of this encounter
--- OUTSIDE RECORDS SUMMARY | 2025-02-09 14:47 | XMS_ITS | Encounter Summary ---
Author Organization [facility] Address [address] [place] [address] Care Team Providers Care Supervisor Pipe Finishing Name Role Phone Radha Martel PA-C Primary Care Provi mckenna Vinod Robles MD Unavailable [phone] Encounter Details Date Type Department Care Team (Late st Contact Info) Description 05/04/[address] [phone] Radha Martel PA-C [address] [place] [address] Social History Tobacco Use Types Packs/Day Years Used Date Smoking Tobacco: Never Smokeless Tobacco: Never Alcohol Use Standard Drinks/Week Comments Yes 0 (1 standard drink = 0.6 oz pur e alcohol) rarely PHQ-2 Answer Date Recorded PHQ-2 Total Score 2 02/24/2024 Comments No Sex and Gender Information Value Date Recorded Sex Assigned at Female 02/23/2024 8:47 PM EDT Legal Sex Female 9:37 PM EDT Gender Identity Female 02/23/2024 8:47 [...] with referral. * Telephone Encounter - Tati Karen Aquino MA - 05/04/2024 12:44 PM EDT from [facility] stated they got a referral [...] Care Team (Late st Contact Info) Description 02/18/2025 8:45 AM EDT Office Visit Orthopedic [address] [place] [address] Raphael Mcdaniel MD 31 [place] [address] 04/01/2025 9:45 AM EDT Office Visit [facility] Department of Cardiology [place] [address] [phone] Antonio Puente MD [address] [address] 04/13/2025 8:30 AM EDT [facility] [address] [place] [address] Theodora Yap APRN [address] [address] 05/20/2025 3:45 PM EDT Office Visit [facility] 100 [facility] [address] [place] [address] Radha Martel PA-C 100 [place] [address] 07/22/2025 9:20 AM EDT Office Visit [facility] Department Of Hematology/Oncology [place] [address] [place] [address] Conner Patricia 107 [place] [address] Jhoana Wilkins MD [address] [facility] [address] [place], [place] [address] documented as of this encounter Visit Diagnoses Not on filedocumented in this encounter Care Teams Supervisor Pipe Finishing Relationship Specialty Start Date End Date Radha Martel PA-C [address] [place] [address] PCP - General Internal Medicine 02/24/24 Vinod Robles MD [address] [place] [address] Primary Director [facility] Cardiovascular Disease 09/02/24 documented as of this encounter
--- OUTSIDE RECORDS SUMMARY | 2025-02-09 14:47 | XMS_ITS | Encounter Summary ---
Author Organization [facility] Address [address] [place] [address] Care Team Providers Care Brim Blocker Name Role Phone Radha Martel PA-C Primary Care Provi mckenna Vinod Robles MD Unavailable [phone] Encounter Details Date Type Department Care Team (Late st Contact Info) Description 05/26/2024 Scanned Document [facility] [address] [place] [address] Internal Medicine, Scan Social History Tobacco Use [...] day at this level? 0 min 05/18/2024 Comments No Sex and Gender Information Value [...] 02/18/2025 8:45 AM EDT [facility] [address] [place] [address] Raphael Mcdaniel MD [address] [place] [address] 04/01/2025 9:45 AM EDT Office Visit [facility] Department of Cardiology [place] 160 [facility] [address] [place] [phone] Antonio Puente MD [address] [facility] [address] [place] [address] 04/13/2025 8:30 AM EDT [facility] [address] [place] [address] Theodora Yap, DIRECTOR OF PEDIATRIC REHABILITATION 31 [facility] 100 [place] [address] 05/20/2025 3:45 PM EDT Office Visit [facility] 100 [facility] [address] [place] [address] Radha Martel PA-C 100 [place] [address] 07/22/2025 9:20 AM EDT Office Visit [facility] Department Of Hematology/Oncology [place] [address] [place] [address] Conner Gomez 107 [place] [address] Jhoana Wilkins MD 300 [facility] [address] [place] [address] documented as of this encounter Visit Diagnoses Not on filedocumented in this encounter Care Teams Brim Blocker Relationship Specialty Start Date End Date Radha Martel PA-C [address] [place] [address] PCP - General Internal Medicine 02/24/24 Vinod Robles MD [address] [place] [address] Primary Laboratory Machinist Cardiovascular Disease 09/02/24 documented as of this encounter
--- OUTSIDE RECORDS SUMMARY | 2025-02-09 14:47 | XMS_ITS | Encounter Summary ---
Author Organization [facility] Address [address] [place] [address] Care Team Providers Care Tool Inspector Name Role Phone Martha Grey APRN Primary Care Provider Unav ailable Mike Burns NP Primary Care Provider Unavail able Martha Grey APRN Primary Care Provider Unav ailable Reason for Visit * Reason Onset Date Comments Provider Call Back 03/28/2020 Encounter Details Date Type Department Care Team Description 03/28/2020 Telephone Adult Medicine B - [address] [address] Martha Grey APRN Provider Call Back Social [...] on filedocumented in this encounter Care Teams Tool Inspector Relationship Specialty Start Date End Date Martha Grey APRN PCP - General Internal Medicine 01/20/20 05/16/22 Mike Burns NP PCP - General Family Practice 05/17/22 11/20/22 Martha Grey APRN PCP - General Internal Medicine 11/21/22 documented as of this encounter
--- OUTSIDE RECORDS SUMMARY | 2025-02-09 14:47 | XMS_ITS | Encounter Summary ---
Author Organization [facility] Address [address] [place] [address] Care Team Providers Care Biometrics Instructor Name Role Phone Emerald Yu MD Primary Care Provider Unavailable [facility], Pcp Primary Care Provider Unavailbruce e Emerald Yu MD Primary Care Provider Unavailable [place] Colasacco, Susannah DO Primary Care Pro vider Unavailable Emerald Yu MD Primary Care Provider Unavailable [place] Colasacco, Susannah DO Primary Care Pro vider Unavailable Siddhartha Oakes MD Primary Care Provider [phone] Martha Grey APRN Primary Care Provider Unav ailable Martha Grey APRN Primary Care Provider Unav ailable Mike Burns NP Primary Care Provider Unavail able Martha Grey APRN Primary Care Provider Unav ailable Reason for Visit * Reason Onset Date Comments PT-1 08/11/2013 Encounter Details Date Type Department Care Team Description 08/11/2013 Telephone Adult Medicine [address] [address] Emerald Yu MD PT-1 Social History Tobacco [...] Tanner - 08/11/2013 3:28 PM EST Patients [place] [facility] Pt. demographics and [place] [facility] information verified YES Mailing address if different from home address YES Name of treating provider Emerald Yu Address/zip for treating provider [address] [place] [address] Phone # of treating provider [phone] What specialty is this provider? pcp For [...] on filedocumented in this encounter Care Teams Biometrics Instructor Relationship Specialty Start Date End Date Emerald Yu MD PCP - General Internal Medicine 07/14/1210/13 [facility], Pcp PCP - General Internal Medicine 10/14/13 12/17/13 Emerald Yu MD PCP - General Internal Medicine 12/18/1302/04 Susannah Rendon DO PCP - General Internal Medicine 02/14/15 05/09/15 Emerald Yu MD PCP - General Internal Medicine 05/10/1506/08 Susannah Rendon DO PCP - General Internal Medicine 07/01/15 05/05/19 Siddhartha Oakes MD [address] [place] [address] PCP - General Internal Medicine 05/06/19 01/12/20 Martha Grey APRN [address] [place] [address] PCP - General Internal Medicine 01/13/20 01/19/20 Martha Grey APRN [address] [place] [address] PCP - General Internal Medicine 01/20/20 05/16/22 Mike Burns NP [address] [place] [address] PCP - General Family Practice 05/17/22 11/20/22 Martha Grey APRN [address] [place] [address] PCP - General Internal Medicine 11/21/22 documented as of this encounter
--- OUTSIDE RECORDS SUMMARY | 2025-02-09 14:47 | XMS_ITS | Encounter Summary ---
Author Organization [facility] Address [address] [place] [address] Care Team Providers Care Test Inspection Engineer Name Role Phone Martha Grey APRN Primary Care Provider Unav ailable Encounter Details Date Type Department Care Team Description 05/31/2024 Pt. Non Urgent Medical Question Bariatric Surgery - [place] 175 [facility] [address] [place] [address] Maria Elena Medina PA-C 271 [facility] 110 [place] [address] Social History Tobacco Use Types [...] on filedocumented in this encounter Care Teams Test Inspection Engineer Relationship Specialty Start Date End Date Martha Grey APRN PCP - General Internal Medicine 11/21/22 documented as of this encounter
--- OUTSIDE RECORDS SUMMARY | 2025-02-09 14:47 | XMS_ITS | Encounter Summary ---
Author Organization [facility] Address [address] [place] [address] Care Team Providers Care Security Flex Utility Officer Name Role Phone Siddhartha Oakes MD Primary Care Provider [phone] Martha Grey APRN Primary Care Provider Unav ailable Martha Grey APRN Primary Care Provider Unav ailable Mike Burns NP Primary Care Provider Unavail able Martha Grey APRN Primary Care Provider Unav ailable Encounter Details Date Type Department Care Team Description 07/10/2019 Old Medical Records Medical Records [address] [place] [address] Abstract, Provider Social History Tobacco Use Types [...] on filedocumented in this encounter Care Teams Security Flex Utility Officer Relationship Specialty Start Date End Date Siddhartha Oakes MD [address] [place] [address] PCP - General Internal Medicine 05/06/19 01/12/20 Martha Grey APRN [address] [place] [address] PCP - General Internal Medicine 01/13/20 01/19/20 Martha Grey, PANFILO [address] [place] [address] PCP - General Internal Medicine 01/20/20 05/16/22 Mike Burns NP [address] [place] [address] PCP - General Family Practice 05/17/22 11/20/22 Martha Grey APRN [address] [place] [address] PCP - General Internal Medicine 11/21/22 documented as of this encounter
--- OUTSIDE RECORDS SUMMARY | 2025-02-09 14:47 | XMS_ITS | Encounter Summary ---
Author Organization [facility] Address [address] [place] [address] Care Team Providers Care Windows Systems Admin Name Role Phone Siddhartha Oakes MD Primary Care Provider [phone] Martha Grey APRN Primary Care Provider Unav ailable Martha Grey APRN Primary Care Provider Unav ailable Mike Bruns NP Primary Care Provider Unavail able Martha Grey APRN Primary Care Provider Unav ailable Encounter Details Date Type Department Care Team Description 05/06/2019 Hospital Medical Records [address] [place] [address] Jasmine Smith MD [address] [place] [address] [place] [address] Social History Tobacco Use Types Packs/Day Years [...] on filedocumented in this encounter Care Teams Windows Systems Admin Relationship Specialty Start Date End Date Siddhartha Oakes MD [address] [place] [address] PCP - General Internal Medicine 05/06/19 01/12/20 Martha Grey APRN [address] [place] [address] PCP - General Internal Medicine 01/13/20 01/19/20 Martha Grey APRN [address] [place] [address] PCP - General Internal Medicine 01/20/20 05/16/22 Mike Burns NP [address] [place] [address] PCP - General Family Practice 05/17/22 11/20/22 Martha Grey APRN [address] [place] [address] PCP - General Internal Medicine 11/21/22 documented as of this encounter
--- OUTSIDE RECORDS SUMMARY | 2025-02-09 14:47 | XMS_ITS | Encounter Summary ---
Author Organization [facility] Address [address] [place] [address] Care Team Providers Care Mold Filler Plastic Dolls Name Role Phone Siddhartha Oakes MD Primary Care Provider [phone] Martha Grey APRN Primary Care Provider Unav ailable Martha Grey APRN Primary Care Provider Unav ailable Mike Burns NP Primary Care Provider Unavail able Martha Grey APRN Primary Care Provider Unav ailable Encounter Details Date Type Department Care Team Description 05/06/2019 Hospital Medical Records [address] [place] [address] Ricardo Cuevas Social History Tobacco Use Types [...] on filedocumented in this encounter Care Teams Mold Filler Plastic Dolls Relationship Specialty Start Date End Date Siddhartha Oakes MD [address] [place] [address] PCP - General Internal Medicine 05/06/19 01/12/20 Martha Grey APRN [address] [place] [address] PCP - General Internal Medicine 01/13/20 01/19/20 Martha Grey APRN [address] [place] [address] PCP - General Internal Medicine 01/20/20 05/16/22 Mike Burns NP [address] [place] [address] PCP - General Family Practice 05/17/22 11/20/22 Martha Grey APRN [address] [place] [address] PCP - General Internal Medicine 11/21/22 documented as of this encounter
--- OUTSIDE RECORDS SUMMARY | 2025-02-09 14:47 | XMS_ITS | Encounter Summary ---
Author Organization [facility] Address [address] [place] [address] Care Team Providers Care Lubrication Worker Name Role Phone Martha Grey APRN Primary Care Provider Unav ailable Mike Burns NP Primary Care Provider Unavail able Martha Grey APRN Primary Care Provider Unav ailable Encounter Details Date Type Department Care Team Description 02/29/2020 Pt. Non Urgent Medic al Question Allergy HAUPPAUGE [address] [place] [address] Marilee Olivas MD Social History Tobacco Use [...] as of this encounter Progress Notes * Gaby Munoz M.A. - 03/01/2020 8:14 AM EDTFrom: Deyanira Stewart To: Marilee Olivas MD Sent: 02/29/2020 7:49 AM EDT Subject: testing What do my allergy testing results mean? documented in this encounter Plan of Treatment Not on file documented as of this encounter Visit Diagnoses Not on filedocumented in this encounter Care Teams Lubrication Worker Relationship Specialty Start Date End Date Martha Grey APRN PCP - General Internal Medicine 01/20/20 05/16/22 Mike Burns NP PCP - General Family Practice 05/17/22 11/20/22 Martha Grey APRN PCP - General Internal Medicine 11/21/22 documented as of this encounter
--- OUTSIDE RECORDS SUMMARY | 2025-02-09 14:47 | XMS_ITS | Data Portability ---
Author Organization [facility] [place] Address [address] [place] [address] Care Team Providers Care Hasher Machine Operator Name Role Phone DEBORAH WATTS Primary Care Provider [phone] Assessment Encounter Date Assessment Date Assessment LastModified [...] progress with therapy, sooner for any complications. [email or web address] Not available 04/20/2023 15:01:29 Plan of Treatment [...] more view 2022 023 [email or web address] [facility], [address], [place], [address], 11:19:47 Medication Orders Lodine 400 mg tablet 2022 023 [id number], [address] [facility], [place], [address], 09:13:20 Patient TargetsNo targets recorded. Patient Instructions Encounter Date Encounter Id Patient Instructions Last Modified By Organization Details Last Modified Time 04/17/2023 [id number] Views of the {{Right Left* Bila teral}} shoulder were obtained in the {{[place]* [place]i} } office including AP, Grashey and outlet views. Good bone mineralization. No significant degenerative changes in the AC joint with no widening. Well maintained Glenohumoral joint space. No abnormal calcifications in the lateral shoulder. No evidence of acute injury or fracture. Interpretation by: Jayce García PA-C [email or web address] Not available 04/17/2023 09:14:44 Reason for Referral [...] Details Recorded Time Subluxation of shoulder joint 505962938 Active 2022 JAYCE GARCÍA PA-C [address], [facility] [place], [address] [place] [facility] 09:11:52 Problem Notes None recorded. Procedures Surgical History Date Name Laterality Status Provider Name and Address Organization Details Recorded Time Gallbladder Surgery completed Kisha Howard [place] [facility] 04/17/2023 09:04:13 delivery completed Kisha Howard [place] [facility] 04/17/2023 09:04:29 Tonsillectomy/A denoidectomy completed Kisha Howard [place] [facility] 04/17/2023 09:04:45 operation on heart completed Kisha Howard [place] [facility] 04/17/2023 09:04:54 Imaging Results None recorded. Procedure Notes None recorded. Medical Equipment None Reported. Allergies Allergen ID Allergen Name Allergen Category Reaction Reaction Severity Criticality Documentation Date Start Date Code Code System Note Provider Name and Address Organization Details Recorded Time 6107 clindamyc in Not available Not available Not available Not available 04/17/2023 2582 RxNorm Kisha Howard [place], [place] [facility] 09:00:19 Medications Name Sig Start Date [...] Updated DateTime 04/17/2023 142.24 cm 37 kg/m2 62190.74 g Kisha Howard [facility] 04/17/2023 09:02:48 Social History Question Answer Notes LastModified by Organizat ion Details LastModified Time Tobacco Smoking Status Former Smoker Kisha Anita [place], [place] - [facility] 04/17/2023 09:03:11 What Is Your Level Of Alcohol Consumption? None [email or web address] Information not available 04/17/2023 Do You Use Any Illicit Or Recreational Drugs? No [email or web address] Information not available 04/17/2023 Do You Or Have You Ever Used Any Other Forms Of Tobacco Or Nicotine? No [email or web address] Information not available 04/17/2023 Sex: Unknown Functional Status None recorded. Mental Status None recorded. Family History Nothing Reported. Medical History Condition Response Asthma Y Gynecological HistoryNo gynecological history recorded. Obstetrics History GPAL:G 0 P 0 0 0 0 Past Encounters Encounter ID Performer Location Encounter Start Date Encounter Closed Date Diagnosis/Indication Diagnosis SNOMED-CT Code Diagnosis ICD10 Code Diagnosis Note [id number] JAYCE GARCÍA PA-C [facility] [address] [place] [address] 04/17/2023 08:41:33 04/17/2023 11:19:47 Pain of left shoulder joint 2273574604 8295377 M25.512 Subluxatio n of shoulder joint 334707765 S43.022A Health Concerns Section Related Observation LastModified by Organization Detai ls LastModified Time None Recorded Concern Status LastModified by Organization Details LastModified Time None Recorded Advance Directives Directive None Recorded Payers Encounter Date Sequence Insurance Name Policy Number Policy Adames Covered Member ID Adames Member ID Guarantor Name 04/17/2023 1 [place] [id number] 2 Osiel Araceli [id number] Deyaniracindy Charles Notes Date Note Type [...] JAYCE GARCÍA PA-C [address], [place], [address], [place] [facility] 04/20/2023 15:01:37 OBGyn Episode No OBEpisode recorded.
--- OUTSIDE RECORDS SUMMARY | 2025-02-09 14:47 | XMS_ITS | Encounter Summary ---
Author Organization [facility] Address [address] [place] [address] Care Team Providers Care Soil Specialist Name Role Phone Martha Grey APRN Primary Care Provider Unav ailable Reason for Visit * Reason Comments E-prescribe Rx Request Encounter Details Date Type Department Care Team Description 01/14/2023 Refill Bariatric Surgery - [place] [address] [facility] [address] [place] [address] Jaky Coyne MD 175 [facility] [address] [place] [address] E-prescribe Rx Request Social History [...] on filedocumented in this encounter Care Teams Soil Specialist Relationship Specialty Start Date End Date Martha Grey APRN PCP - General Internal Medicine 11/21/22 documented as of this encounter
--- OUTSIDE RECORDS SUMMARY | 2025-02-09 14:47 | XMS_ITS | Encounter Summary ---
Author Organization [facility] Address [address] [place] [address] Care Team Providers Care Planning Specialist Name Role Phone Radha Martel PA-C Primary Care Provi mckenna Vinod Robles MD Unavailable [phone] Encounter Details Date Type Department Care Team (Late st Contact Info) Description 05/04/2024 Scanned Document [facility] [address] [place] [phone] Radha Martel PA-C [address] [place] [address] Social History Tobacco Use Types Packs/Day Years [...] 8:45 AM EDT [facility] [address] [place] [address] Raphael Mcdaniel MD [address] [place] [address] 04/01/2025 9:45 AM EDT Office Visit [facility] Department of Cardiology [place] [address] [place] [address] Antonio Puente MD [address] [place] [address] 04/13/2025 8:30 AM EDT [facility] [address] [place] [address] Theodora Yap, CUSTOMER CONTACT REPRESENTATIVE 31 [facility] 100 [place] [address] 05/20/2025 3:45 PM EDT Office Visit [facility] [address] [place] [address] Radha Martel PA-C 100 [place] [address] 07/22/2025 9:20 AM EDT Office Visit [facility] Department Of Hematology/Oncology [place] [address] [place] [address] Jhoana Wilkins MD 300 [facility] [address] [place] [address] documented as of this encounter Visit Diagnoses Not on filedocumented in this encounter Care Teams Planning Specialist Relationship Specialty Start Date End Date Radha Martel PA-C [address] [place] [address] PCP - General Internal Medicine 02/24/24 Vinod Robles MD [address] [place] [address] Primary Oil Well Engineer Cardiovascular Disease 09/02/24 documented as of this encounter
--- OUTSIDE RECORDS SUMMARY | 2025-02-09 14:47 | XMS_ITS | Encounter Summary ---
Author Organization [facility] Address [address] [place] [address] Care Team Providers Care Dimmer Board Operator Name Role Phone Radha Martel PA-C Primary Care Provi mckenna Vinod Robles MD Unavailable [phone] Encounter Details Date Type Department Care Team (Late st Contact Info) Description 02/08/2025 Scanned Document Orthopedic [facility] 74 [place] [address] Raphael Mcdaniel MD 31 [place] [address] Social History Tobacco Use Types Packs/Day Years [...] 8:45 AM EDT [facility] [address] [place] [address] Raphael Mcdaniel MD 31 [place] [address] 04/01/2025 9:45 AM EDT Office Visit [facility] Department of Cardiology [place] 160 [facility] 100 [place] [phone] Antonio Puente MD 160 [facility] 100 [place] [address] 04/13/2025 8:30 AM EDT [facility] [address] 303 [place] [address] Theodora Yap APRN [address] [phone] 05/20/2025 3:45 PM EDT Office Visit [facility] 100 [facility] 101 [place] [address] Radha Martel PA-C 100 [place] [address] 07/22/2025 9:20 AM EDT Office Visit [facility] Department Of Hematology/Oncology [place] [address] [place] [phone] Jhoana Wilkins MD 300 [facility] [address] 4 [place], [place] [address] documented as of this encounter Visit Diagnoses Not on filedocumented in this encounter Care Teams Dimmer Board Operator Relationship Specialty Start Date End Date Radha Martel PA-C 100 [place] [address] PCP - General Internal Medicine 02/24/24 Vinod Robles MD [address] [place] [address] Primary Quad Stayer Cardiovascular Disease 09/02/24 documented as of this encounter
--- OUTSIDE RECORDS SUMMARY | 2025-02-09 14:47 | XMS_ITS | Encounter Summary ---
Author Organization [facility] Address [address] [place] [address] Care Team Providers Care Water Pollution Specialist Name Role Phone Martha Grey APRN Primary Care Provider Unav ailable Reason for Visit * Reason Comments E-prescribe Rx Request Encounter Details Date Type Department Care Team Description 08/19/2023 Refill Bariatric Surgery - [place] 175 [facility] [address] [place] [address] Jaky Coyne MD 175 [facility] [address] [place] [address] E-prescribe Rx Request Social History [...] on filedocumented in this encounter Care Teams Water Pollution Specialist Relationship Specialty Start Date End Date Martha Grey APRN PCP - General Internal Medicine 11/21/22 documented as of this encounter
--- OUTSIDE RECORDS SUMMARY | 2025-02-09 14:47 | XMS_ITS | Encounter Summary ---
Author Organization [facility] Address [address] [place] [address] Care Team Providers Care Cutter Down Name Role Phone Siddhartha Oakes MD Primary Care Provider [phone] Emerald Yu MD Primary Care Provider Unavailable [facility], [facility] Emerald Yu MD Primary Care Provider Unavailable Oj Colasacco, Susannah DO Primary Care Pro vider Unavailable Emerald Yu MD Primary Care Provider Unavailable Krakoopal Colasacco, Susannah DO Primary Care Pro vider Unavailable Siddhartha Oakes MD Primary Care Provider [phone] Martha Grey APRN Primary Care Provider Unav ailable Martha Grey APRN Primary Care Provider Unav ailable Mike Burns NP Primary Care Provider Unavail able Martha Grey APRN Primary Care Provider Unav ailable Reason for Visit * Reason Onset Date Comments Follow-up Appt Unavailable 04/10/2012 Encounter Details Date Type Department Care Team Description 04/10/2012 Telephone OBGYN - [facility] 305 [place] [address] Marta Bartlett MD Follow-up Appt Unavailable Social History Tobacco Use Types Packs/Day Years Used Date Smoking Tobacco: Some Days Cigarettes 0.3 Smokeless Tobacco: Never Alcohol Use Standard Drinks/Week [...] encounter Miscellaneous Notes * Telephone Encounter - Landy Miranda M.A. - 04/10/2012 9:28 AM EDT Called pt to change appt today to 3:45 pm there was a procedure at 2:00pm which should be for 30 minutes documented in this encounter Plan of Treatment Not on file documented as of this encounter Visit Diagnoses Not on filedocumented in this encounter Care Teams Cutter Down Relationship Specialty Start Date End Date Siddhartha Oakes MD [address] [place] [address] PCP - General Internal Medicine 03/05/12 07/13/12 Emerald Yu MD [address] [place] [address] PCP - General Internal Medicine 07/14/12 10/13/13 [facility], [address] [address] PCP - General Internal Medicine 10/14/13 12/17/13 Emerald Yu MD [address] [place] [address] PCP - General Internal Medicine 12/18/13 02/13/15 Susannah Rendon DO [address] [place] [address] PCP - General Internal Medicine 02/14/15 05/09/15 Emerald Yu MD [address] [place] [address] PCP - General Internal Medicine 05/10/15 06/30/15 Susannah Rendon DO [address] [place] [address] PCP - General Internal Medicine 07/01/15 05/05/19 Siddhartha Oakes MD 305 [place] [address] PCP - General Internal Medicine 05/06/19 01/12/20 Martha Grey APRN 305 [place] [address] PCP - General Internal Medicine 01/13/20 01/19/20 Martha Grey APRN 305 [place] [address] PCP - General Internal Medicine 01/20/20 05/16/22 Mike Burns NP 305 [place] [address] PCP - General Family Practice 05/17/22 11/20/22 Martha Grey APRN 305 [place] [address] PCP - General Internal Medicine 11/21/22 documented as of this encounter
--- OUTSIDE RECORDS SUMMARY | 2025-02-09 14:47 | XMS_ITS | Encounter Summary ---
Author Organization [facility] Address [address] [place] [address] Care Team Providers Care Mineral Industry Teacher Name Role Phone Radha Martel PA-C Primary Care Provi mckenna Vinod Robles MD Unavailable Reason for Referral * Diagnostic Imaging (Routine) - Authorized Specialty Diagnoses / Procedures Referred By Contdominic t Referred To Contact Diagnoses Low back pain, unspecified back pain laterality, unspecified chronicity, unspecified whether sciatica present Procedures MRI Lumbar spine w/o contrast Raphael Mcdaniel MD [address] [place] [address] Phone: tel: fax: [facility] Referral ID Status Reason Start Date Expiration Date V isits Requested Visits Authorized [id number] Authorized 02/08/2025 02/09/2026 1 1 Encounter Details Date Type Department Care Team (Late st Contact Info) Description 02/08/2025 Orders Only [facility] [address] [place] [phone] Raphael Mcdaniel MD [address] [place] [address] Low back pain, unspecified back pain laterality, unspecified chronicity, unspecified whether sciatica present (Primary Dx) Social History Tobacco Use Types [...] 8:45 AM EDT [facility] [address] [address] Raphael Mcdaniel MD 31 [place] [address] 04/01/2025 9:45 AM EDT Office Visit [facility] Department of Cardiology [place] [address] [phone] Antonio Puente MD [address] [address] 04/13/2025 8:30 AM EDT [facility] [address] [address] Theodora Yap APRN [address] [address] 05/20/2025 3:45 PM EDT Office Visit [facility] 100 [facility] 101 [place] [address] Radha Martel PA-C 100 [place] [address] 07/22/2025 9:20 AM EDT Office Visit [facility] Department Of Hematology/Oncology [place] [address] [place] [phone] Jhoana Wilkins MD 300 [address] [facility] 4 [place] [address] Scheduled Orders Name Type Priority Associated Diagnoses Orde r Schedule MRI Lumbar spine w/o contrast Imaging Routine Low back pain, unspecified back pain laterality, unspecified chronicity, unspecified whether sciatica present Expected: 02/08/2025, Expires: 02/08/2026 documented as of this encounter Visit Diagnoses Diagnosis Low back pain, unspecified back pain laterality, unspecified chronicity, unspecified whether sciatica present- Primary documented in this encounter Care Teams Mineral Industry Teacher Relationship Specialty Start Date End Date Radha Martel PA-C [address] [place] [address] PCP - General Internal Medicine 02/24/24 Vinod Robles MD [address] [place] [address] Primary Floor Scrubber Cardiovascular Disease 09/02/24 documented as of this encounter
--- OUTSIDE RECORDS SUMMARY | 2025-02-09 14:47 | XMS_ITS | Encounter Summary ---
Author Organization [facility] Address [address] [place] [address] Care Team Providers Care Quirk Sander Name Role Phone Martha Grey APRN Primary Care Provider Unav ailable Mike Burns NP Primary Care Provider Unavail able Martha Grey APRN Primary Care Provider Unav ailable Reason for Visit * Reason Onset Date Comments Medication 02/02/2020 Encounter Details Date Type Department Care Team Description 02/02/2020 Pt. Non Urgent Medical Question Adult Medicine [address] [address] Ingrid Price APRN [address] [place] [address] Social History Tobacco Use Types Packs/Day Years [...] as of this encounter Progress Notes * Gris White M.A. - 02/02/2020 9:04 AM EDTFrom: Deyanira Stewart To: Ingrid Price APRN Sent: 02/02/2020 8:13 AM EDT Subject: buspirone Good morning, I am looking to see if we can up the buspirone like we spoke about it my anxiety did not decrease which it had not. Please advise. Thank you, Deyanira documented in this encounter Plan of Treatment Not on file documented as of this encounter Visit Diagnoses Not on filedocumented in this encounter Care Teams Quirk Sander Relationship Specialty Start Date End Date Martha Grey APRN PCP - General Internal Medicine 01/20/20 05/16/22 Mike Burns NP PCP - General Family Practice 05/17/22 11/20/22 Martha Grey APRN PCP - General Internal Medicine 11/21/22 documented as of this encounter
--- OUTSIDE RECORDS SUMMARY | 2025-02-09 14:47 | XMS_ITS | Encounter Summary ---
Author Organization [facility] Address [address] [place] [address] Care Team Providers Care Heating And Ventilation Engineer Name Role Phone Siddhartha Oakes MD Primary Care Provider [phone] Emerald Yu MD Primary Care Provider Unavailable Count Includes [facility], [facility] Primary Care Provider [facility] Emerald Yu MD Primary Care Provider Unavailable Oj Colasadavido, Susannah DO Primary Care Pro vider Unavailable Emerald Yu MD Primary Care Provider Unavailable Krakoopal Colasadavido, Susannah DO Primary Care Pro vider Unavailable Siddhartha Oakes MD Primary Care Provider Martha Grey APRN Primary Care Provider Unav ailable Martha Grey APRN Primary Care Provider Unav ailable Mike Burns NP Primary Care Provider Unavail able Martha Grey APRN Primary Care Provider Unav ailable Reason for Visit * Reason Comments Encounter Details Date Type Department Care Team Description 06/04/2012 Telephone OBGYN - [facility] 305 [place], [place] [phone] Aurea Schneider CNM Social History Tobacco Use Types Packs/Day Years [...] encounter Miscellaneous Notes * Telephone Encounter - Aurea LIOR Schneider - 06/04/2012 6:33 PM EDT Telephone Information: Work Phone Not on file. Called patient to inform her that all [facility] labs normal documented in this encounter Plan of Treatment Not on file documented as of this encounter Visit Diagnoses Not on filedocumented in this encounter Care Teams Heating And Ventilation Engineer Relationship Specialty Start Date End Date Siddhartha Oakes MD [address] [place] [address] PCP - General Internal Medicine 03/05/12 07/13/12 Emerald Yu MD 305 [place] [address] PCP - General Internal Medicine 07/14/12 10/13/[address] [address] PCP - General Internal Medicine 10/14/13 12/17/13 Emerald Yu MD [address] [place] [address] PCP - General Internal Medicine 12/18/13 02/13/15 Susannah Rendon, DO 305 [place] [address] PCP - General Internal Medicine 02/14/15 05/09/15 Emerald Yu MD 305 [place] [address] PCP - General Internal Medicine 05/10/15 06/30/15 Susannah Rendon, 305 [place] [address] PCP - General Internal Medicine 07/01/15 05/05/19 Siddhartha Oakes MD 305 [place] [address] PCP - General Internal Medicine 05/06/19 01/12/20 Martha Grey APRN 305 [place] [address] PCP - General Internal Medicine 01/13/20 01/19/20 Martha Grey APRN 305 [place] [address] PCP - General Internal Medicine 01/20/20 05/16/22 Mike Burns NP 305 [place] [address] PCP - General Family Practice 05/17/22 11/20/22 Martha Grey APRN 305 [place] [address] PCP - General Internal Medicine 11/21/22 documented as of this encounter
--- OUTSIDE RECORDS SUMMARY | 2025-02-09 14:47 | XMS_ITS | Encounter Summary ---
Author Organization [facility] Address [address] [place] [address] Care Team Providers Care Monotype Mechanic Name Role Phone Martha Grey APRN Primary Care Provider Unav ailable Encounter Details Date Type Department Care Team Description 01/10/2023 Refill Bariatric Surgery - [place] 175 [facility] 120 [place] [address] Maria Elena Medina PA-C 271 [facility] 110 [place] [address] Social History Tobacco Use Types [...] on filedocumented in this encounter Care Teams Monotype Mechanic Relationship Specialty Start Date End Date Martha Grey APRN PCP - General Internal Medicine 11/21/22 documented as of this encounter
--- OUTSIDE RECORDS SUMMARY | 2025-02-09 14:47 | XMS_ITS | Encounter Summary ---
Author Organization [facility] Address [address] [place] [address] Care Team Providers Care Director Of Quantitative Research Name Role Phone Radha Martel PA-C Primary Care Provi mckenna Vinod Robles MD Unavailable Encounter Details Date Type Department Care Team (Late st Contact Info) Description 01/27/[address] [facility] 74 [place] [address] Raphael Mcdaniel MD 31 [place] [address] Social History Tobacco Use Types Packs/Day Years [...] AM EDT [facility] Visit [facility] [address] [place] [address] Raphael Mcdaniel MD 31 [place] [address] 04/01/2025 9:45 AM EDT Office Visit [facility] Department of Cardiology [place] 160 [facility] 100 [place] [address] Antonio Puente MD 160 [facility] 100 [place] [address] 04/13/2025 8:30 AM EDT [facility] [address] [place] [address] Theodora Yap APRN [address] [phone] 05/20/2025 3:45 PM EDT Office Visit [facility] 100 [facility] 101 [place] [address] Radha Martel PA-C 100 [place] [address] 07/22/2025 9:20 AM EDT Office Visit [facility] Department Of Hematology/Oncology [place] [address] [place] [phone] Jhoana Wilkins MD 300 [facility] [address] 4 [place], [place] [address] documented as of this encounter Visit Diagnoses Not on filedocumented in this encounter Care Teams Director Of Quantitative Research Relationship Specialty Start Date End Date Radha Martel PA-C 100 [place] [address] PCP - General Internal Medicine 02/24/24 Vinod Robles MD [address] [place] [address] Primary Educational Director Cardiovascular Disease 09/02/24 documented as of this encounter
--- OUTSIDE RECORDS SUMMARY | 2025-02-09 14:47 | XMS_ITS | Encounter Summary ---
Author Organization [facility] Address [address] [place] [address] Care Team Providers Care Flight Information Expediter Name Role Phone Martha Grey APRN Primary Care Provider Unav ailable Reason for Visit * Reason Comments E-prescribe Rx Request Encounter Details Date Type Department Care Team Description 02/10/2023 Refill Bariatric Surgery - [place] 175 [facility] [address] [place] [address] Jaky Coyne MD 175 [facility] [address] [place] [address] E-prescribe Rx Request Social History [...] on filedocumented in this encounter Care Teams Flight Information Expediter Relationship Specialty Start Date End Date Martha Grey APRN PCP - General Internal Medicine 11/21/22 documented as of this encounter
--- OUTSIDE RECORDS SUMMARY | 2025-02-09 14:47 | XMS_ITS | Encounter Summary ---
Author Organization [facility] Address [address] [place] [address] Care Team Providers Care Ground Operations Superintendent Name Role Phone Siddhartha Oakes MD Primary Care Provider [phone] Martha Grey APRN Primary Care Provider Unav ailable Martha Grey APRN Primary Care Provider Unav ailable Mike Burns NP Primary Care Provider Unavail able Martha Grey APRN Primary Care Provider Unav ailable Reason for Visit * Reason Onset Date Comments TEST RESULTS 07/03/2019 Encounter Details Date Type Department Care Team Description 07/03/2019 Telephone Adult Medicine [address] [address] Siddhartha Oakes MD [address] [place] [phone] TEST RESULTS Social History Tobacco Use Types [...] encounter Miscellaneous Notes * Telephone Encounter - Katiana Gutierrez PA-C - 07/03/2019 1:09 PM EDT Sent message to [facility]. * Telephone Encounter - Ingrid Ferrell L.P.N. - 07/03/2019 8:51 AM EDT Pt calling for lab results. Please review and advise. Thank you! * Telephone Encounter - Genie Montero - 07/03/2019 8:30 AM EDT Inform patient: ANY URGENT OR ABNORMAL RESULTS WIILL RESULT IN A CALL BACK TO THE PATIENT OMER. Type of test: :BABESIA AB Date test was performed: 06-29-19 Where was the test performed: [facility] Who ordered this test?: Katiana Gutierrez Is the doctor here today?: NO Can the message wait until the doctor returns?: no IF PATIENT'S PCP IS NOT IN INSTRUCT PATIENT THAT THEY WILL RECEIVE A CALL BACK WHEN THE PCP IS IN THE OFFICE NEXT. documented in this encounter Plan of Treatment Not on file documented as of this encounter Visit Diagnoses Not on filedocumented in this encounter Care Teams Ground Operations Superintendent Relationship Specialty Start Date End Date Siddhartha Oakes MD 305 [place] [address] PCP - General Internal Medicine 05/06/19 01/12/20 Martha Grey APRN 305 [place] [address] PCP - General Internal Medicine 01/13/20 01/19/20 Martha Grey APRN 305 [place] [address] PCP - General Internal Medicine 01/20/20 05/16/22 Mike Burns NP 305 [place] [address] PCP - General Family Practice 05/17/22 11/20/22 Martha Grey, PANFILO 305 [place] [address] PCP - General Internal Medicine 11/21/22 documented as of this encounter
--- OUTSIDE RECORDS SUMMARY | 2025-02-09 14:47 | XMS_ITS | Encounter Summary ---
Author Organization [facility] Address [address] [place] [address] Care Team Providers Care Mac Developer Name Role Phone Martha Grey APRN Primary Care Provider Unav ailable Mike Burns NP Primary Care Provider Unavail able Martha Grey APRN Primary Care Provider Unav ailable Encounter Details Date Type Department Care Team Description 01/20/2020 Telephone Adult Medicine [address] [address] Luanne Alejandra MD Social History Tobacco Use Types Packs/Day [...] encounter Miscellaneous Notes * Telephone Encounter - Petar Keen L.P.N. - 01/20/2020 2:25 PM EDT Telephone Information: Called patient Dr. Silva said she can't have a audio appt needs to go to ER or have an office appt she declined has no one to watch her son documented in this encounter Plan of Treatment Not on file documented as of this encounter Visit Diagnoses Not on filedocumented in this encounter Care Teams Mac Developer Relationship Specialty Start Date End Date Martha Grey APRN PCP - General Internal Medicine 01/20/20 05/16/22 Mike Burns NP PCP - General Family Practice 05/17/22 11/20/22 Martha Grey APRN PCP - General Internal Medicine 11/21/22 documented as of this encounter
--- OUTSIDE RECORDS SUMMARY | 2025-02-09 14:47 | XMS_ITS | Encounter Summary ---
Author Organization [facility] Address [address] [place] [address] Care Team Providers Care Civil Engineering Design Draftsperson Name Role Phone Martha Grey PANFILO Primary Care Provider Unav ailable Reason for Visit * Reason Onset Date Comments Hospital Notes Received 06/26/2024 Encounter Details Date Type Department Care Team Description 06/26/2024 Telephone Bariatric Surgery - [place] 175 [facility] [address] [place] [address] Maria Elena Medina PA-C 271 [facility] 110 [place] [address] Hospital Notes Received Social History Tobacco Use Types Packs/Day Years [...] Miscellaneous Notes * Telephone Encounter - Gaby Ruchi Chambers - 06/26/2024 9:16 PM EDT Landy had requested these notes back in March and they were never received. I was able to find them in CareEverywhere. I uploaded and scanned them into the chart. documented in this encounter Plan of Treatment Not on file documented as of this encounter Visit Diagnoses Not on filedocumented in this encounter Care Teams Civil Engineering Design Draftsperson Relationship Specialty Start Date End Date Martha Grey APRN PCP - General Internal Medicine 11/21/22 documented as of this encounter
--- OUTSIDE RECORDS SUMMARY | 2025-02-09 14:48 | XMS_ITS | Encounter Summary ---
Author Organization [facility] Address [address] [place] [address] Care Team Providers Care Coffee Bar Attendant Name Role Phone Martha Grey APRN Primary Care Provider Unav ailable Mike Burns NP Primary Care Provider Unavail able Martha Grey APRN Primary Care Provider Unav ailable Encounter Details Date Type Department Care Team Description 04/04/2022 Refill OBGYN - [place] 444 [place] [address] Gaby Unger, CORAL [address] [place] [address] Social History Tobacco Use Types Packs/Day Years [...] unspecified documented in this encounter Care Teams Coffee Bar Attendant Relationship Specialty Start Date End Date Martha Grey APRN PCP - General Internal Medicine 01/20/20 05/16/22 Mike Burns NP PCP - General Family Practice 05/17/22 11/20/22 Martha Grey APRN PCP - General Internal Medicine 11/21/22 documented as of this encounter
--- OUTSIDE RECORDS SUMMARY | 2025-02-09 14:48 | XMS_ITS | Encounter Summary ---
Author Organization [facility] Address [address] [place] [address] Care Team Providers Care Life Insurance Sales Name Role Phone Martha Grey APRN Primary Care Provider Unav ailable Mike Burns NP Primary Care Provider Unavail able Martha Grey APRN Primary Care Provider Unav ailable Encounter Details Date Type Department Care Team Description 2022 [facility] Medical Records [address] [place] [id number] Abstract, Provider Social History Tobacco Use Types [...] on filedocumented in this encounter Care Teams Life Insurance Sales Relationship Specialty Start Date End Date Martha Grey APRN PCP - General Internal Medicine 4/15/20 8/10/22 Mike Burns NP PCP - General Family Practice 05/17/22 11/20/22 Martha Grey APRN PCP - General Internal Medicine 11/21/22 documented as of this encounter
--- OUTSIDE RECORDS SUMMARY | 2025-02-09 14:48 | XMS_ITS | Encounter Summary ---
Author Organization [facility] Address [address] [place] [address] Care Team Providers Care Harbor Pilot Name Role Phone Susannah Rendon DO Primary Care Pro vider Unavailable Siddhartha Oakes MD Primary Care Provider [phone] Martha Grey APRN Primary Care Provider Unav ailable Martha Grey APRN Primary Care Provider Unav ailable Mike Burns NP Primary Care Provider Unavail able Martha Grey APRN Primary Care Provider Unav ailable Reason for Visit * Reason Onset Date Comments TEST RESULTS 12/25/2018 Encounter Details Date Type Department Care Team Description 12/25/2018 Pt. Non Urgent Medic al Question Adult Medicine [address] [address] Susannah Rendon DO Social History Tobacco Use Types Packs/Day [...] Notes * Karlene Parisi M.A. - 12/25/2018 1:34 PM EDTFrom: Deyaniraaura Stewart To: Susannah Rangel DO Sent: 12/25/2018 9:14 AM EDT Subject: Question regarding COMPLETE BLOOD COUNT I have a question about COMPLETE BLOOD COUNT. How do I go about finding out why I have a elevated CRP levels. resulted on 12/22/18 at 9:13 PM. documented in this encounter Plan of Treatment Not on file documented as of this encounter Visit Diagnoses Not on filedocumented in this encounter Care Teams Harbor Pilot Relationship Specialty Start Date End Date Susannah Rendon DO PCP - General Internal Medicine 07/01/15 05/05/19 Siddhartha Oakes MD [address] [place] [address] PCP - General Internal Medicine 05/06/19 01/12/20 Martha Grey APRN [address] [place] [address] PCP - General Internal Medicine 01/13/20 01/19/20 Martha Grey APRN [address] [place] [address] PCP - General Internal Medicine 01/20/20 05/16/22 Mike Burns NP [address] [place] [address] PCP - General Family Practice 05/17/22 11/20/22 Martha Grey APRN [address] [place] [address] PCP - General Internal Medicine 11/21/22 documented as of this encounter
--- OUTSIDE RECORDS SUMMARY | 2025-02-09 14:48 | XMS_ITS | Encounter Summary ---
Author Organization [facility] Address [address] [place] [address] Care Team Providers Care Fish Stringer Assembler Name Role Phone Siddhartha Oakes MD Primary Care Provider [phone] Martha Grey APRN Primary Care Provider Unav ailable Martha Grey APRN Primary Care Provider Unav ailable Mike Burns NP Primary Care Provider Unavail able Martha Grey APRN Primary Care Provider Unav ailable Reason for Visit * Reason Onset Date Comments Provider Call Back 05/22/2019 Encounter Details Date Type Department Care Team Description 05/22/2019 Telephone Adult Medicine [address] [address] Siddhartha Oakes MD [address] [place] [address] Provider Call Back Social History Tobacco Use [...] Miscellaneous Notes * Telephone Encounter - Genie Montero - 05/25/2019 1:28 PM EDT Patient is calling looking for status * Telephone Encounter - Fatou Natyroxanna Mena - 05/22/2019 4:28 PM EDT I called spoke with patient provider will review Saturday * Telephone Encounter - Fatou Roblero Amroxanna M.AAimee - 05/22/2019 4:00 PM EDT See message below and advise /vs * Telephone Encounter - Genie Montero - 05/22/2019 2:22 PM EDT Caller requesting call back from provider: Is the caller the patient? YES Reason for call back: Patient would like to discuss recent procedure findings, she has questions and does not remember much from yesterday. Caller offered to speak with the nurse for assistance: YES Response: Patient offered to speak with nurse for assistance and patient agreed. Message forwarded to nurse. documented in this encounter Plan of Treatment Not on file documented as of this encounter Visit Diagnoses Not on filedocumented in this encounter Care Teams Fish Stringer Assembler Relationship Specialty Start Date End Date Siddhartha Oakes MD [address] [place] [address] PCP - General Internal Medicine 05/06/19 01/12/20 Martha Grey APRN [address] [place] [address] PCP - General Internal Medicine 01/13/20 01/19/20 Martha Grey APRN [address] [place] [address] PCP - General Internal Medicine 01/20/20 05/16/22 Mike Burns NP [address] [place] [address] PCP - General Family Practice 05/17/22 11/20/22 Martha Grey APRN [address] [place] [address] PCP - General Internal Medicine 11/21/22 documented as of this encounter
--- OUTSIDE RECORDS SUMMARY | 2025-02-09 14:48 | XMS_ITS | Encounter Summary ---
Author Organization [facility] Address [address] [place] [address] Care Team Providers Care Eviction Specialist Name Role Phone Martha Grey PANFILO Primary Care Provider Unav ailable Encounter Details Date Type Department Care Team Description 11/28/2022 Pt. Non Urgent Medical Question Bariatric Surgery - [place] [address] [facility] [address] [place] [address] Maria Elena Medina PA-C [address] [facility] 110 [place] [address] Social History Tobacco Use Types [...] AM EST documented as of this encounter Miscellaneous Notes * Telephone Encounter - Farheen Morfin 11/28/2022 1:11 PM ESTFrom: Deyanira Stewart To: Wilfredo Becerril Sent: 11/28/2022 1:02 PM EST Subject: Iron infusions My pcp is resuming to do anything can I go to hematology/ oncology through [facility] and see if they will do it documented in this encounter Plan of Treatment Not on file documented as of this encounter Visit Diagnoses Not on filedocumented in this encounter Care Teams Eviction Specialist Relationship Specialty Start Date End Date Martha Grey APRN PCP - General Internal Medicine 11/21/22 documented as of this encounter
--- OUTSIDE RECORDS SUMMARY | 2025-02-09 14:48 | XMS_ITS | Encounter Summary ---
Author Organization [facility] Address [address] [place] [address] Care Team Providers Care Intermodal Dispatcher Name Role Phone Martha Grey APRN Primary Care Provider Unav ailable Mike Burns NP Primary Care Provider Unavail able Martha Grey APRN Primary Care Provider Unav ailable Reason for Visit * Reason Onset Date Comments refill request 09/22/2021 Encounter Details Date Type Department Care Team Description 09/22/2021 Refill Adult Medicine B - [address] [address] Tennille Caicedo NP [address] [place] [address] refill request Social History Tobacco Use Types [...] on filedocumented in this encounter Care Teams Intermodal Dispatcher Relationship Specialty Start Date End Date Martha Grey APRN PCP - General Internal Medicine 01/20/20 05/16/22 Mike Burns NP PCP - General Family Practice 05/17/22 11/20/22 Martha Grey APRN PCP - General Internal Medicine 11/21/22 documented as of this encounter
--- OUTSIDE RECORDS SUMMARY | 2025-02-09 14:48 | XMS_ITS | Encounter Summary ---
Author Organization [facility] Address [address] [place] [address] Care Team Providers Care Greenhouse Transplanter Name Role Phone Radha Martel PA-C Primary Care Provi mckenna Vinod Robles MD Unavailable [phone] Encounter Details Date Type Department Care Team (Late st Contact Info) Description 03/13/2024 Telephone [facility] [address] [place] [phone] Radha Martel PA-C [address] [place] [address] Social History Tobacco Use Types Packs/Day Years [...] 8:45 AM EDT [facility] [address] [address] Raphael Mcdaniel MD [address] [place] [address] 04/01/2025 9:45 AM EDT Office Visit [facility] Department of Cardiology [facility] [address] [phone] Antonio Puente MD [address] [address] 04/13/2025 8:30 AM EDT Office Visit [facility] [address] [address] Theodora Yap APRN [address] [address] 05/20/2025 3:45 PM EDT Office Visit [facility] 100 [facility] [address] [place] [address] Radha Martel PA-C [address] [place] [address] 07/22/2025 9:20 AM EDT Office Visit [facility] Department Of Hematology/Oncology [place] [address] [address] [place] [phone] Jhoana Wilkins MD [address] [place] [address] documented as of this encounter Visit Diagnoses Not on filedocumented in this encounter Care Teams Greenhouse Transplanter Relationship Specialty Start Date End Date Radha Martel PA-C [address] [place] [address] PCP - General Internal Medicine 02/24/24 Vinod Robles MD [facility] [place] [address] Primary Machine Welt Butter Cardiovascular Disease 09/02/24 documented as of this encounter
--- OUTSIDE RECORDS SUMMARY | 2025-02-09 14:48 | XMS_ITS | Data Portability ---
Author Organization [facility] [place] Address [address] [place] [address] Care Team Providers Care Hand Box Coverer Name Role Phone BENJAMIN MENJIVAR Primary Care Provider [phone] Assessment Encounter Date Assessment Date Assessment LastModified [...] are varying amounts of side effects from [id number]. Patient can expect to lose between 15 [...] of 30 minutes with the patient in [id number] consultation on the video +30 minutes both [...] Details Recorded Time Increased body mass index 47890408 Active 2023 Flori Mo null, [place] - [employer] 4 14:28:16 Cobalamin deficiency 553748383 Active 2023 Flor[place] Mo [place] - [employer] 4 14:28:31 Anemia 876317068 Active 2023 Flori Mo [place] - [employer] 4 14:28:38 Attention deficit hyperactivity disorder, predominantly inattentive type 74755221 Active 2023 [place] - [employer] 4 14:28:58 Generalized anxiety disorder 08673285 Active 2023 Flori Mo [place] - [employer] 4 14:29:08 Bipolar disorder 69142122 Active 2023 Flori Mo [place] - [employer] 4 14:29:27 Gastroparesis syndrome 008066026 Active 2023 Jian Bello MD [address] [place] [address], [phone], [employer] 4 10:36:46 Body mass index 40+ - severely obese 488121210 Active 2023 Jian Bello MD [address] [place] [address] [place], [phone], [employer] 4 10:37:09 Problem Notes None recorded. 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 Procedure Notes None recorded. Medical Equipment None Reported. Allergies Allergen ID Allergen Name Allergen Category Reaction Reaction Severity Criticality Documentation Date Start Date Code Code System Note Provider Name and Address Organization Details Recorded Time 3858 adhesive tape environme nt,medica tion Not available Not available Not available 05/12/2024 39723 UNK Flori Mo tank [facility] [employer] 4 14:27:18 3859 amoxicill in medicatio n Not available Not available Not available 05/12/2024 723 RxNorm Flori Mo tank [facility] [employer] 4 14:27:26 3860 clindamyc in Not available Not available Not available Not available 05/12/2024 2582 RxNorm Flori Mo tank [facility] [employer] 4 14:27:32 3861 tapentado l medicatio n Not available Not available Not available 05/12/2024 17174 0 RxNorm Flori Mo tank [facility] [employer] 4 14:27:39 3862 venlafaxi ne medicatio n Not available Not available Not available 05/12/2024 15934 RxNorm Flori Mo tank [facility] [employer] 4 14:27:48 Medications Name Sig Start Date [...] Address Organization Details Last Updated DateTime 05/21/2024 78013.63 g 40.4 kg/m2 142.24 cm Jian Bello MD [address] [place] [address], [facility] [place], [address], [employer] 05/21/2024 15:49:17 Social History Question Answer Notes LastModified by Organization Details LastModified Time Tobacco Smoking Status Never Smoker Jian Bello MD [address] [place] [address], [place], [address], [employer] 05/21/2024 15:55:21 How Much Alcohol Do You [...] Yes [email or web address] Information not available 05/21/2024 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 [email or web address] Information not available 05/21/2024 History [...] SNOMED-CT Code Diagnosis ICD10 Code Diagnosis Note 57169 Jian Bello MD [address], [facility] 3 [place] [address] 05/21/2024 15:45:05 05/25/2024 16:24:03 Increased body mass index 15468611 E66.9 Bipolar disorder 4475946 4 F31.9 Attention deficit hyperactivity disorder, predominantly inattentive type 50402192 F90.0 Gastropare sis syndrome 519694182 K31.84 Body mass index 40+ - severely obese 322836539 Z68.41 Health Concerns Section Related Observation LastModified by Organization Detai ls LastModified Time None Recorded Concern Status LastModified by Organization Details LastModified Time None Recorded Advance Directives Directive None Recorded Payers Encounter Date Sequence Insurance Name Policy Number Policy Adames Covered Member ID Adames Member ID Guarantor Name 05/21/2024 1 [place] [id number] Osiel Charles [id number] Deyanira Charles Notes Date Note Type Note [...] gastric motility emptying scan Jian Bello MD [address] [place] [address], [address], [place], [address], [facility] - [employer] [facility] 05/25/2024 10:37:29 OBGyn Episode No OBEpisode recorded.
--- OUTSIDE RECORDS SUMMARY | 2025-02-09 14:48 | XMS_ITS | Encounter Summary ---
Author Organization [facility] Address [address] [place] [address] Care Team Providers Care Pretzel Cooker Name Role Phone Radha Martel PA-C Primary Care Provi mckenna Vinod Robles MD Unavailable Encounter Details Date Type Department Care Team (Late st Contact Info) Description 03/12/2024 Scanned Document [facility] Department Of Hematology/Oncology [place] [address] [facility] [address] [place] [phone] Jhoana Wilkins MD 300 [facility] [address] [place] [address] Social History Tobacco Use Types Packs/Day Years [...] 8:45 AM EDT [facility] [address] [place] [address] Raphael Mcdaniel MD [address] [place] [address] 04/01/2025 9:45 AM EDT Office Visit [facility] Department of Cardiology [place] [address] [place] [phone] Antonio Puente MD [address] [place] [address] 04/13/2025 8:30 AM EDT Office Visit [facility] [address] [facility] [address] [place] [address] Theodora Yap, BUSINESS MANAGEMENT SPECIALIST [facility] 100 [place] [address] 05/20/2025 3:45 PM EDT Office Visit [facility] [address] [place] [phone] Radha Martel PA-C [address] [place] [address] 07/22/2025 9:20 AM EDT Office Visit [facility] Department Of Hematology/Oncology [place] [address] [place] [address] Jhoana Wilkins MD 300 [facility] [address] [place] [address] documented as of this encounter Procedures Procedure Name Priority Date/Time Associated Diagnosis Comments LAB RESULT 03/12/2024 4:09 PM EDT documented in this encounter Results * LAB RESULT (03/12/2024 4:09 PM EDT) Jhoana Wilkins MD HX AMB PROCEDURES Final Result documented in this encounter Visit Diagnoses Not on filedocumented in this encounter Care Teams Pretzel Cooker Relationship Specialty Start Date End Date Radha Martel PA-C [address] [place] [address] PCP - General Internal Medicine 02/24/24 Vinod Robles MD [address] [address] Primary Carriage Feeder Cardiovascular Disease 09/02/24 documented as of this encounter
--- OUTSIDE RECORDS SUMMARY | 2025-02-09 14:48 | XMS_ITS | Encounter Summary ---
Author Organization [facility] Address [address] [place] [address] Care Team Providers Care Barbed Wire Machine Operator Name Role Phone Susannah Rendon DO Primary Care Pro vider Unavailable Siddhartha Oakes MD Primary Care Provider [phone] Martha Grey APRN Primary Care Provider Unav ailable Martha Grey APRN Primary Care Provider Unav ailable Mike Burns NP Primary Care Provider Unavail able Martha Grey APRN Primary Care Provider Unav ailable Encounter Details Date Type Department Care Team Description 12/19/2018 Networking Engineer Report Medical Records [address] [place] [address] Eleno Sol MD Social History Tobacco Use Types Packs/Day [...] on filedocumented in this encounter Care Teams Barbed Wire Machine Operator Relationship Specialty Start Date End Date Susannah Rendon DO PCP - General Internal Medicine 07/01/15 05/05/19 Siddhartha Oakes MD [address] [place] [address] PCP - General Internal Medicine 05/06/19 01/12/20 Martha Grey APRN [address] [place] [address] PCP - General Internal Medicine 01/13/20 01/19/20 Martha Grey APRN [address] [place] [address] PCP - General Internal Medicine 01/20/20 05/16/22 Mike Burns NP [address] [place] [address] PCP - General Family Practice 05/17/22 11/20/22 Martha Grey APRN [address] [place] [address] PCP - General Internal Medicine 11/21/22 documented as of this encounter
--- OUTSIDE RECORDS SUMMARY | 2025-02-09 14:48 | XMS_ITS | Encounter Summary ---
Author Organization [employer] [facility] Address [address] [place] [address] Care Team Providers Care Tailer Off Name Role Phone Martha Grey APRN Primary Care Provider Unav ailable Reason for Visit * Reason Comments E-prescribe Rx Request Encounter Details Date Type Department Care Team Description 12/23/2022 Refill Bariatric Surgery [facility] 175 [facility] [address] [place] [address] Maria Elena Medina PA-C 271 [facility] [address] [place] [address] E-prescribe Rx Request Social History [...] on filedocumented in this encounter Care Teams Tailer Off Relationship Specialty Start Date End Date Martha Grey APRN PCP - General Internal Medicine 11/21/22 documented as of this encounter
--- OUTSIDE RECORDS SUMMARY | 2025-02-09 14:48 | XMS_ITS | Encounter Summary ---
Author Organization [facility] Address [address] [place] [address] Care Team Providers Care Ext Js Developer Name Role Phone Radha Martel PA-C Primary Care Provi mckenna Vinod Robles MD Unavailable [phone] Encounter Details Date Type Department Care Team (Late st Contact Info) Description 03/10/2024 Scanned Document [facility] Department Of Hematology/Oncology [place] [address] [place] [address] [facility] 107 [place] [phone] Jhoana Wilkins MD 300 [facility] [address] [place] [address] Social History Tobacco Use Types Packs/Day Years [...] 8:45 AM EDT [facility] [address] [place] [address] Raphael Mcdaniel MD 31 [place] [address] 04/01/2025 9:45 AM EDT [facility] Department of Cardiology [place] [address] [facility] [address] [place] [address] Antonio Puente MD [address] [facility] [address] [place] [address] 04/13/2025 8:30 AM EDT Office Visit [facility] 7 [facility] [address] [place] [address] Theodora Yap, INSTRUCTIONAL LEADER 31 [facility] 100 [place] [address] 05/20/2025 3:45 PM EDT Office Visit [facility] 100 [facility] [address] [place] [address] Radha Martel PA-C [address] [place] [address] 07/22/2025 9:20 AM EDT Office Visit [facility] Department Of Hematology/Oncology [place] [address] [place] [address] [place] [address] Jhoana Wilkins MD 300 [facility] [address] [place] [address] documented as of this encounter Visit Diagnoses Not on filedocumented in this encounter Care Teams Ext Js Developer Relationship Specialty Start Date End Date Radha Martel PA-C [address] [place] [address] PCP - General Internal Medicine 02/24/24 Vinod Robles MD [address] [place] [address] Primary Board Winder Cardiovascular Disease 09/02/24 documented as of this encounter
--- OUTSIDE RECORDS SUMMARY | 2025-02-09 14:48 | XMS_ITS | Encounter Summary ---
Author Organization [facility] Address [address] [place] [address] Care Team Providers Care Channeling Machine Operator Name Role Phone Martha Grey APRN Primary Care Provider Unav ailable Mike Burns NP Primary Care Provider Unavail able Martha Grey APRN Primary Care Provider Unav ailable Reason for Visit * Reason Onset Date Comments Disassembler Product Feedback 09/12/2021 Alejandrina Garrido s Encounter Details Date Type Department Care Team Description 09/12/2021 Telephone Adult Medicine - [address] [address] Martha Grey APRN Disassembler Product Feedback (Alejandrina Saez) Social History Tobacco Use Types Packs/Day Years [...] encounter Miscellaneous Notes * Telephone Encounter - Melanie Easton - 09/12/2021 11:55 AM EST No insurance referral required per patient's insurance. * Telephone Encounter - Jackie Ottoniel - 09/12/2021 11:09 AM EST What insurance does the patient have today? [employer] [id number] Effective 07/07/09: BCBS will not retro referral [...] insurance must be obtained and registered in [facility] or their referral can not be processed. Is this a retro request? NO. If yes for what date of service do you need the retro referral? N/A Who is calling to request this referral? Patient If the caller is not the patient, what is their name? N/A Ask the patient WHO referred them to this specialty: Patient self referred FIRST and LAST NAME of SPECIALIST PATIENT is seeing: [employer] What specialty is this? Psychology DIAGNOSIS Patient is being seen for (Not a body part or a procedure): Psych Testing Have you seen this SPECIALIST for this PROBLEM/DX before?NO If YES, when: Have you checked REVIEW or the APPT DESK to see if this referral has already been done or has visits left? YES Is this visit:Initial Visit Address of Specialist:[address] [place] [address] Phone # of Specialist:[phone] Fax #: (if applicable):[phone] Does patient have an appointment scheduled?: YES Date of appointment- (including a retro-request): 09/20/21 Is this appointment related to: Not MVA, WC or Surgery related documented in this encounter Plan of Treatment Not on file documented as of this encounter Visit Diagnoses Not on filedocumented in this encounter Care Teams Channeling Machine Operator Relationship Specialty Start Date End Date Martha Grey APRN PCP - General Internal Medicine 01/20/20 05/16/22 Mike Burns NP PCP - General Family Practice 05/17/22 11/20/22 Martha Grey APRN PCP - General Internal Medicine 11/21/22 documented as of this encounter
--- OUTSIDE RECORDS SUMMARY | 2025-02-09 14:48 | XMS_ITS | Encounter Summary ---
Author Organization [facility] Address [address] [place] [address] Care Team Providers Care Executive Personal Assistant Name Role Phone Siddhartha Oakes MD Primary Care Provider [phone] Martha Grey APRN Primary Care Provider Unav ailable Martha Grey APRN Primary Care Provider Unav ailable Mike Burns NP Primary Care Provider Unavail able Martha Grey APRN Primary Care Provider Unav ailable Encounter Details Date Type Department Care Team Description 12/25/2019 Orders Only Podiatry - [address] [address] Toby Lund DPM Social History Tobacco Use Types Packs/Day Years [...] on filedocumented in this encounter Care Teams Executive Personal Assistant Relationship Specialty Start Date End Date Siddhartha Oakes MD [address] [place] [address] PCP - General Internal Medicine 05/06/19 01/12/20 Martha Grey APRN [address] [place] [address] PCP - General Internal Medicine 01/13/20 01/19/20 Martha Grey APRN [address] [place] [address] PCP - General Internal Medicine 01/20/20 05/16/22 Mike Burns NP [address] [place] [address] PCP - General Family Practice 05/17/22 11/20/22 Martha Grey APRN [address] [place] [address] PCP - General Internal Medicine 11/21/22 documented as of this encounter
--- OUTSIDE RECORDS SUMMARY | 2025-02-09 14:48 | XMS_ITS | Encounter Summary ---
Author Organization [facility] Address [address] [place] [address] Care Team Providers Care Wire Worker Name Role Phone Susannah Rendon DO Primary Care Pro vider Unavailable Siddhartha Oakes MD Primary Care Provider [phone] Martha Grey APRN Primary Care Provider Unav ailable Martha Grey APRN Primary Care Provider Unav ailable Mike Burns NP Primary Care Provider Unavail able Martha Grey APRN Primary Care Provider Unav ailable Encounter Details Date Type Department Care Team Description 03/04/2019 Refill Adult Medicine [address] [address] Reina Leung PA-C [address] [place] [address] [id number] Social History Tobacco Use Types Packs/Day Years [...] on filedocumented in this encounter Care Teams Wire Worker Relationship Specialty Start Date End Date Susannah Rendon DO PCP - General Internal Medicine 07/01/15 05/05/19 Siddhartha Oakes MD [address] [place] [address] PCP - General Internal Medicine 05/06/19 01/12/20 Martha Grey APRN [address] [place] [address] PCP - General Internal Medicine 01/13/20 01/19/20 Martha Grey APRN [address] [place] [address] PCP - General Internal Medicine 01/20/20 05/16/22 Mike Burns NP [address] [place] [address] PCP - General Family Practice 05/17/22 11/20/22 Martha Grey APRN [address] [place] [address] PCP - General Internal Medicine 11/21/22 documented as of this encounter
--- OUTSIDE RECORDS SUMMARY | 2025-02-09 14:49 | XMS_ITS | Encounter Summary ---
Author Organization [facility] Address [address] [place] [address] Care Team Providers Care Medical Sales Representative Name Role Phone Emerald Yu MD Primary Care Provider Unavailable Oj Boyceo, Susannah DO Primary Care Pro vider Unavailable Emerald Yu MD Primary Care Provider Unavailable Krakoopal Colbarringtono, Susannah DO Primary Care Pro vider Unavailable Siddhartha Oakes MD Primary Care Provider Martha Grey APRN Primary Care Provider Unav ailable Martha Grey APRN Primary Care Provider Unav ailable Mike Burns NP Primary Care Provider Unavail able Martha Grey APRN Primary Care Provider Unav ailable Reason for Visit * Reason Onset Date Comments Error 2014 Encounter Details Date Type Department Care Team Description 2014 Telephone [facility] - [address] [address] Eliseo Rodríguez MD Error Social History Tobacco Use Types Packs/Day Years [...] encounter Miscellaneous Notes * Telephone Encounter - Lisa Manrique - 2014 3:21 PM EDT Inform patient: ANY URGENT OR ABNORMAL RESULTS WIILL RESULT IN A CALL BACK TO THE PATIENT OMER. Type of test: :urine ?uti Date test was performed: 01/08 [facility] Who ordered this test?: DR RODRÍGUEZ Is the doctor here today?: NO Can the message wait until the doctor returns?: YES IF PATIENT'S PCP IS NOT IN INSTRUCT PATIENT THAT THEY WILL RECEIVE A CALL BACK WHEN THE PCP IS IN THE OFFICE NEXT. documented in this encounter Plan of Treatment Not on file documented as of this encounter Visit Diagnoses Not on filedocumented in this encounter Care Teams Medical Sales Representative Relationship Specialty Start Date End Date Emerald Yu MD PCP - General Internal Medicine 12/18/1302/04 Susannah Rendon DO PCP - General Internal Medicine 02/14/15 05/09/15 Emerald Yu MD PCP - General Internal Medicine 05/10/1506/08 Susannah Rendon DO PCP - General Internal Medicine 07/01/15 05/05/19 Siddhartha Oakes MD [address] [place] [address] PCP - General Internal Medicine 05/06/19 01/12/20 Martha Grey APRN [address] [place] [address] PCP - General Internal Medicine 01/13/20 01/19/20 Martha Grey APRN [address] [place] [address] PCP - General Internal Medicine 01/20/20 05/16/22 Mike Burns NP [address] [place] [address] PCP - General Family Practice 05/17/22 11/20/22 Martha Grey APRN [address] [place] [address] PCP - General Internal Medicine 11/21/22 documented as of this encounter
--- OUTSIDE RECORDS SUMMARY | 2025-02-09 14:49 | XMS_ITS | Encounter Summary ---
Author Organization [facility] Address [address] [place] [address] Care Team Providers Care Order Booker Name Role Phone Susannah Rendon DO Primary Care Pro vider Unavailable Siddhartha Oakes MD Primary Care Provider [phone] Martha Grey APRN Primary Care Provider Unav ailable Martha Grey APRN Primary Care Provider Unav ailable Mike Burns NP Primary Care Provider Unavail able Martha Grey APRN Primary Care Provider Unav ailable Encounter Details Date Type Department Care Team Description 01/30/2017 Refill OBGYN - [place] [address] [place], [place] [phone] de Ariel Anderson MD [address] [place] [address] Social History Tobacco Use Types [...] on filedocumented in this encounter Care Teams Order Booker Relationship Specialty Start Date End Date Susannah Rendon DO PCP - General Internal Medicine 07/01/15 05/05/19 Siddhartha Oakes MD [address] [place] [address] PCP - General Internal Medicine 05/06/19 01/12/20 Martha Grey APRN [address] [place] [address] PCP - General Internal Medicine 01/13/20 01/19/20 Martha Grey APRN [address] [place] [address] PCP - General Internal Medicine 01/20/20 05/16/22 Mike Burns NP [address] [place] [address] PCP - General Family Practice 05/17/22 11/20/22 Martha Grey APRN [address] [place] [address] PCP - General Internal Medicine 11/21/22 documented as of this encounter
--- OUTSIDE RECORDS SUMMARY | 2025-02-09 14:49 | XMS_ITS | Encounter Summary ---
Author Organization [facility] Address [address] [place] [address] Care Team Providers Care Vendor Specialist Name Role Phone Martha Grey APRN Primary Care Provider Unav ailable Mike Burns NP Primary Care Provider Unavail able Martha Grey APRN Primary Care Provider Unav ailable Reason for Visit * Reason Onset Date Comments Prior Authorization 11/17/2020 Encounter Details Date Type Department Care Team Description 11/17/2020 Telephone Adult Medicine [address] [address] Martha Grey APRN Prior Authorization Social History Tobacco Use Types Packs/Day Years [...] encounter Miscellaneous Notes * Telephone Encounter - Radha Ray - 11/17/2020 4:[address] SALDIVAR from [place] ordered an MRI brain. We did not get that auth. [facility] needs to contact thatoffice. * Telephone Encounter - Martha Grey APRN - 11/17/2020 3:59 PM EST Not sure what this is in regards to, I did not order an MRI * Telephone Encounter - Dora Tabares M.A. - 11/17/2020 3:07 PM EST This came to prior auth in [place], we only work with medications [place] p [id number] Prior Auth pool Dora Tabares M.A. [facility] Prior Authorizations Ext [id number] Fax: [phone] [place] p [id number] Prior Auth pool * Telephone Encounter - Eleno Murphy - 11/17/2020 11:52 AM EST Lilly is calling today from the MRI Authorizations Department at [facility] because she notes that Martha Grey created a prior authorization for a MRI at [facility], but Dr. Ruby at [facility] also ordered an MRI. Lilly says there are issues with the [facility] authorization and she would like a call back whenever possible. documented in this encounter Plan of Treatment Not on file documented as of this encounter Visit Diagnoses Not on filedocumented in this encounter Care Teams Vendor Specialist Relationship Specialty Start Date End Date Martha Grey APRN PCP - General Internal Medicine 01/20/20 05/16/22 Mike Burns NP PCP - General Family Practice 05/17/22 11/20/22 Martha Grey APRN PCP - General Internal Medicine 11/21/22 documented as of this encounter
--- OUTSIDE RECORDS SUMMARY | 2025-02-09 14:49 | XMS_ITS | Encounter Summary ---
Author Organization [facility] Address [address] [place] [address] Care Team Providers Care Stone Paver Name Role Phone Radha Martel PA-C Primary Care Provi mckenna Vinod Robles MD Unavailable [phone] Reason for Visit * Reason Comments Other Encounter Details Date Type Department Care Team (Late st Contact Info) Description 03/23/2024 Telephone [facility] [address] [place] [phone] Radha Martel PA-C [address] [place] [address] Other Social History Tobacco Use Types Packs/Day [...] 8:45 AM EDT [facility] [address] [place] [address] Raphael Mcdaniel MD [address] [place] [address] 04/01/2025 9:45 AM EDT Office Visit [facility] Department of Cardiology [place] [address] [place] [phone] Antonio Puente MD [address] [place] [address] 04/13/2025 8:30 AM EDT [facility] Visit [facility] [address] [place] [address] Theodora Yap, KEY RINGER [address] [facility] [address] [place] [address] 05/20/2025 3:45 PM EDT Office Visit [facility] [address] [place] [phone] Radha Martel PA-C [address] [place] [address] 07/22/2025 9:20 AM EDT Office Visit [facility] Department Of Hematology/Oncology [place] [address] [place] [phone] Jhoana Wilkins MD [address] [facility] [address] [place] [address] documented as of this encounter Visit Diagnoses Not on filedocumented in this encounter Care Teams Stone Paver Relationship Specialty Start Date End Date Radha Martel PA-C [address] [place] [address] PCP - General Internal Medicine 02/24/24 Vinod Robles MD [address] [place] [address] Primary [facility] 09/02/24 documented as of this encounter
--- OUTSIDE RECORDS SUMMARY | 2025-02-09 14:49 | XMS_ITS | Clinical Summary ---
Author Organization [facility] Address [address] [place] [address] Care Team Providers Care Senior Product Development Manager Name Role Phone Radha Martel PA-C Primary Care Provi mckenna Vinod Robles MD Unavailable [phone] Allergies Active Allergy Reactions Criticality Noted Date Comments Adhesives/Tape Rash/Dermatitis Medium 04/15/2021 Amoxicillin Rash/Dermatitis Low 02/19/2024 Clindamycin Anaphylaxis High 04/15/2021 Tapentadol Rash/Dermatitis High 08/04/2014 Venlafaxine Other (See Comments),Unknown/Patient and Family Unable to Define Medium 06/01/2020 Suicidal ideation Suicidal ideation Suicidal ideation Other Reaction(s): Other (See Comments) Suicidal ideation Medications QUEtiapine (SEROquel) 100 MG tablet Take 1 tablet (100 mg total) by mouth nightly. Active Armodafinil (NUVIGIL) 250 MG tablet Take 1 tablet (250 mg total) by mouth daily. 4 Active cariprazine (Vraylar) 1.5 MG caspule Take 1 tablet by mouth daily. 3 Active eszopiclone (LUNESTA) 1 MG tablet Take 1 tablet (1 mg total) by mouth nightly. 4 Active lamoTRIgine (LaMICtal) 200 MG tablet Take 1 tablet (200 mg total) by mouth daily. 4 Active valACYclovir (VALTREX) 500 MG tablet Take 1 tablet (500 mg total) by mouth daily. 3 Active Mometasone Furoate Powder Compound mometasone 1mg capsule in sinus rinse twice daily 4 Active Ubrelvy 100 MG tablet TAKE 1/2 TO 1 TABLET BY MOUTH NEEDED FOR MIGRAINE. MAY REPEAT IN 2 HOURS. MAY TAKE WITH IBUPROFEN Active albuterol (PROVENTIL HFA; VENTOLIN HFA) 108 (90 Base) MCG/ACT inhalerIndicatio ns:Bacterial respiratory infection Inhale 2 puffs 4 times daily (every 6 hours) as needed for wheezing. 1 each 1 5 Active pregabalin (LYRICA) 150 MG capsuleIndicatio ns:Fibromyalgia Take 1 capsule (150 mg total) by mouth 2 (two) times a day. 60 capsule 3 5 Active colesevelam (WELCHOL) 625 MG tablet Take 3 tablets (1,875 mg total) by mouth 2 (two) times a day with meals. 5 Active vonoprazan (VOQUEZNA) 10 mg tablet Take 1 tablet (10 mg total) by mouth daily. 5 Active methocarbamol (ROBAXIN) 750 MG tabletIndication s:Low back pain, unspecified back pain laterality, unspecified chronicity, unspecified whether sciatica present Take 1 tablet (750 mg total) by mouth 4 (four) times a day as needed for muscle spasms. 40 tablet 5 Active Active Problems Problem Noted Date Diagnosed [...] Encounters Date Type Department Care Team Description 02/08/2025 Scanned Document [facility] [address] [id number] Raphael Mcdaniel MD 02/08/2025 Orders Only [facility] [address] [place] [address] Raphael Mcdaniel MD Low back pain, unspecified back pain laterality, unspecified chronicity, unspecified whether sciatica present (Primary Dx) 01/27/2025 Scanned Document [facility] [address] [address] Raphael Mcdaniel MD 01/26/2025 9:00 AM EDT [facility] [address] [address] Rodo Richards MD Pain in right ankle and joints of right foot (Primary Dx) 01/25/2025 9:00 AM EDT Ancillary Procedure [facility] [address] [address] Raphael Mcdaniel MD 01/25/2025 8:30 AM EDT Consult [facility] [address] [address] Raphael Mcdaniel MD Cervicalgia (Primary Dx); Low back pain, unspecified back pain laterality, unspecified chronicity, unspecified whether sciatica present 01/25/2025 8:25 AM EDT Ancillary Procedure [facility] [address] [address] Raphael Mcdaniel MD 01/25/2025 Orders Only [facility] [address] [address] Yessica Aden MD 01/20/2025 11:40 AM EDT Telemedicine [facility] [address] [place] [address] [address] Jhoana Wilkins MD Bleeding diathesis (Primary Dx); Bipolar 2 disorder, major depressive episode (HCC); Attention deficit disorder; Anemia; S/P gastric sleeve procedure; Morbid obesity (HCC); History of tobacco use; Fibromyalgia; Fatty liver disease, nonalcoholic; Focal nodular hyperplasia of liver 01/19/2025 1:30 PM EDT [facility] [address] [address] Theodora Yap APRN Pain in right ankle and joints of right foot (Primary Dx) 01/19/2025 1:25 PM EDT Ancillary Procedure [facility] [address] [address] 01/15/2025 Orders Only [facility] [address] [facility] 101 [place] [phone] Radha Martel PA-C Chronic bilateral low back pain, unspecified whether sciatica present (Primary Dx) 2025 Telephone [facility] [address] [facility] [address] [place] [phone] Radha Martel PA-C 01/06/2025 11:30 AM EDT Office Visit [facility] [address] [facility] [address] [place] [phone] Radha Martel PA-C Chronic bilateral low back pain, unspecified whether sciatica present (Primary Dx); Muscle spasm; Fibromyalgia; Acute right ankle pain; Gastroesophageal reflux disease, unspecified whether esophagitis present; Palpitations; Memory change 01/06/2025 Travel 12/29/2024 8:00 AM EDT Consult [facility] Department of Physiatry [address] [place] [address] Karlene العراقي MD Lumbar facet joint pain (Primary Dx); Myalgia; Spasm of both trapezius muscles; Lumbar paraspinal muscle spasm 12/29/2024 Travel 12/24/2024 10:40 AM EDT Office Visit [facility]ematology[facility]Oncology [place] [address] [address] [place] [phone] Jhoana Wilkins MD Bleeding diathesis (Primary Dx); Anemia; B12 deficiency; Bipolar 2 disorder, major depressive episode (HCC); Fe deficiency anemia; Morbid obesity (HCC); S/P gastric sleeve procedure 12/16/2024 Orders Only [facility] [address] [facility] [address] [place] [phone] Rahda Martel PA-C Fibromyalgia (Primary Dx); Trigger finger, unspecified finger, unspecified laterality 12/14/2024 8:30 AM EDT Office Visit [facility] of Cardiology [place] [address] [facility] [address] [place] [address] Antonio Puente MD Heart palpitations (Primary Dx); Syncope and collapse; Morbid obesity (HCC); S/P repair of PDA 12/09/2024 Orders Only [facility] [address] [facility] [address] [place] [address] Radha Martel PA-C Fibromyalgia (Primary Dx) 12/08/2024 Orders Only [facility] [address] [facility] [address] [place] [address] Radha Martel PA-C Fibromyalgia (Primary Dx) 11/25/2024 8:00 AM EST Office Visit [facility] Dermatology [address] [phone] Radha Martel PA-C Naka, Fludiona, MD Cutaneous skin tags (Primary Dx); Lentigines; Xerosis cutis; Abreu angioma; Multiple pigmented nevi; Screening for skin cancer; Sun-damaged skin; Pruritus; Other specified counseling; Disturbance of skin sensation; Seborrheic keratoses 11/25/2024 Travel 11/24/2024 11:00 AM EST Office Visit [facility] [address] [facility] [address] [place] [address] Radha Martel PA-C Fibromyalgia (Primary Dx); B12 deficiency; Iron deficiency anemia, unspecified iron deficiency anemia type; Recurrent sinus infections; Incontinence of feces, unspecified fecal incontinence type; Syncope and collapse; Frequent infections 11/24/2024 Travel 11/21/2024 2:00 PM EST Telemedicine [facility] [address] [phone] Jon Pleitez MD Patel, Arti J, PA-C Bacterial respiratory infection (Primary Dx) 11/21/2024 Travel from Last 3 Months Immunizations Immunization Administration Dates Next Due Influenza Inactivated/Split Preservative [...] 8:45 AM EDT [facility] [address] [place] [address] Raphael Mcdaniel MD 31 [place] [address] 04/01/2025 9:45 AM EDT Office Visit [facility] [place] [address] [facility] [address] [place] [address] Antonio Puente MD [address] [facility] 100 [place] [address] 04/13/2025 8:30 AM EDT Office Visit [facility] [place] [address] [facility] [address] [place] [address] Theodora Yap APRN [address] [address] 05/20/2025 3:45 PM EDT Office Visit [facility] [address] [facility] [address] [place] [address] Radha Martel PA-C 100 [place] [address] 07/22/2025 9:20 AM EDT Office Visit [facility] Of Hematology/Oncology [place] [address] [place] [phone] Jhoana Wilkins MD [address] [facility] [address] [place], [place] [phone] Health Maintenance Due Date Last Done Comments Pap Smear (Ages 21-65) 01/10/2013 Pneumococcal Vaccine: Pediatric (0-5 Years) and At-Risk Patients (6 to 49 Years) (2 of 2 - PCV) 06/02/2021 06/02/2020 COVID-19 Vaccine ( season) 2024 Influenza Vaccine 05/07/2025 12/26/2024, , 08/06/2019, Additional history exists Physical 05/18/2027 05/18/2024 DTaP/Tdap/Td Vaccines (4 - Td or Tdap) 03/22/2033 03/22/2023, 07/14/2012, 09/19/2011 HIV Screening Completed 02/15/2021 Chronic Controlled Substance User PDMP Review Discontinued 07/16/2024 HPV Vaccines Aged Out No longer eligi ble based on patient's age to complete this topic Hepatitis B Vaccines Discontinued Hepatitis C Virus Screening Discontinued Procedures Procedure Name Priority Date/Time Associated Diagnosis Comments MRI CERVICAL SPINE W/O CONTRAST Routine 02/05/2025 7:35 AM EDT Cervicalgia MRI EXTERNAL RESULT Routine 01/25/2025 9 :03 AM EDT XR CERVICAL SPINE W/ FLEX+EXT 4 VIEWS Routine 01/25/2025 9:02 AM EDT Cervicalgia XR LUMBAR SPINE COMPLETE 4+ VIEWS Routine 01/25/2025 8:31 AM EDT Low back pain, unspecified back pain laterality, unspecified chronicity, unspecified whether sciatica present XR FOOT 3+ VIEWS-RIGHT Routine 1:32 PM EDT Pain in right ankle and joints of right foot XR ANKLE 3+ VIEWS-RIGHT Routine 01/19/2025 1:32 PM EDT Pain in right ankle and joints of right foot VITAMIN B12 AND FOLATE Routine 11:25 AM [...] Bleeding diathesis CARDIAC EVENT/LOOP MONITOR RECORD/SCN ANLYSIS/REPORT ([id number]) Routine 11/30/2024 9:51 AM EST Heart palpitations ECHOCARDIOGRAM (TTE) COMPREHENSIVE (CONTRAST PRN) Routine 11/30/2024 8:59 AM EST Heart palpitations S/P repair of PDA from Last 3 Months Results * MRI Cervical spine w/o contrast (02/05/2025 7:35 AM EDT) Anatomical Region Laterality Modality C-spine Magnetic Resonan ce 02/05/2025 7:00 AM EDT 02/05/2025 7:00 AM EDT Impressions 02/05/2025 8:51 AM EDT Small multilevel disc protrusions. Electronically signed by: ??Ada Packer MD ??02/05/2025 08:51 AM EDT Thank you for referring your patient to us, Ada Packer MD [phone] (Electronically Signed - 02/05/2025 08:51) Narrative 02/05/2025 8:51 AM EDT EXAM: MR CERVICAL SPINE WITHOUT IV CONTRAST CLINICAL INFORMATION: ??Cervicalgia COMPARISON: None available at time of interpretation. TECHNIQUE: The following MRI sequences of the cervical spine were obtained: Sagittal T1, Sagittal T2, Sagittal STIR, axial T2. FINDINGS: Normal cervical lordosis. Bone marrow signal normal. No fractures. Mild multilevel disc height loss and endplate degeneration. Small disc protrusions at C2-C3, C3-C4, C4-C5, and C5-C6. Congenital spinal canal narrowing. Mild to moderate acquired spinal canal stenosis at C3-C4. No spinal cord signal abnormalities. The neural foramen are patent at all levels. Moderate left-sided facet arthropathy at C3-C4. Procedure Note Ada Packer MD - 02/05/2025 EXAM: MR CERVICAL SPINE WITHOUT IV CONTRAST CLINICAL INFORMATION: Cervicalgia COMPARISON: None available at time of interpretation. TECHNIQUE: The following MRI sequences of the cervical spine wereobtained: Sagittal T1, Sagittal T2, Sagittal STIR, axial T2. FINDINGS: Normal cervical lordosis. Bone marrow signal normal. Nofractures. Mild multilevel disc height loss and endplate degeneration.Small disc protrusions at C2-C3, C3-C4, C4-C5, and C5-C6. Congenitalspinal canal narrowing. Mild to moderate acquired spinal canal stenosis at C3-C4. No spinal cord signalabnormalities. The neural foramen are patent at all levels. Moderateleft-sided facet arthropathy at C3-C4. IMPRESSION: Small multilevel disc protrusions. Electronically signed by: Ada Packer MD 02/05/2025 08:51 AM EDT RPWorkstation: [id number] Thank you for referring your patient to us, Ada Packer MD [phone] (Electronically Signed - 02/05/2025 08:51) Raphael PENA MRI ORDERABLES Final Result * MRI External Result (01/25/2025 9:03 AM EDT) Anatomical Region Laterality Modality Magnetic Resonan ce us External Provider MD PENA MRI ORDERABLES Final Re sult * XR Cervical spine w/ flex+ext 4 views (01/25/2025 9:02 AM EDT) Narrative OAH - 01/25/2025 9:02 AM EDT This exam was performed in office at [facility] and images reviewed by orthopedic provider. ??Any findings are documented within ambulatory encounter note on date of service. Raphael PENA DIAGNOSTIC IMAGING ORDERABLE S Final Result Performing Organization Address [facility] de Phone Number OAH * XR Lumbar spine complete 4+ views (01/25/2025 8:31 AM EDT) Narrative [facility] - 01/25/2025 8:31 AM EDT [facility] and images reviewed by orthopedic provider. ??Any findings are documented within ambulatory encounter note on date of service. Raphael PENA DIAGNOSTIC IMAGING ORDERABLE S Final Result Performing Organization Address [facility] de Phone Number OAH * XR Foot 3+ views-Right (01/19/2025 1:32 PM EDT) Narrative [facility] - 01/19/2025 1:32 PM EDT This exam was performed in office at [facility] and images reviewed by orthopedic provider. ??Any findings are documented within ambulatory encounter note on date of service. Theodora PENA DIAGNOSTIC IMAGING OR DERABLES Final Result Performing Organization Address [facility] de Phone Number OAH * XR Ankle 3+ views-Right (01/19/2025 1:32 PM EDT) Narrative [facility] - 01/19/2025 1:32 PM EDT This [facility] and images reviewed by orthopedic provider. ??Any findings are documented within ambulatory encounter note on date of service. Theodora PENA DIAGNOSTIC IMAGING OR DERABLES Final Result Performing Organization Address [facility] de Phone Number OAH * VITAMIN B12 AND FOLATE (12/24/2024 11:25 AM EDT) Vitamin B12 390 211 - 946 pg/mL [facility] Folate, Serum 5.5 3.1 - 17.5 ng/mL [facility] Blood Blood specimen / Unknown 12/24/2024 11:25 AM EDT 12/24/2024 4:06 PM EDT us Jhoana Wilkins MD LAB BLOOD ORDERABLES Final Resul t Performing Organization Address City/[facility] Co de Phone Number [address] [address], [place] * Von Willebrand Factor Multi. (12/24/2024 11:20 [...] 0 AM EDT 12/24/2024 3:50 PM EDT us Jhoana Wilkins MD LAB BLOOD ORDERABLES Final Resul t Performing Organization Address [facility] Co de Phone Number UY * FACTOR VIII ACTIVITY, CHROMOGENIC (12/24/2024 11:20 AM EDT) Factor Viii Activity 92 56 - 140 % [employer] 12/24/2024 11:2 0 AM EDT 12/24/2024 3:50 PM EDT us Jhoana Wilkins MD GENETIC TESTING Final Result LAB [employer] [address] [place] [address], * Iron and Total Iron Binding Capacity (12/24/2024 11:20 AM EDT) Iron 75 45 - 160 ug/dL [facility] UIBC 235 110 - 370 ug/dL [facility] Total Iron Binding Capacity 310 228 - 428 ug/dL [facility] Iron Sat 24 11 - 50 % [facility] Blood Blood specimen / Unknown 12/24/2024 11:20 AM EDT 12/24/2024 3:50 PM EDT Jhoana Wilkins MD LAB BLOOD ORDERABLES Final Resul t [facility] [address] [place] [address], * VON WILLEBRAND FACTOR ACTIVITY (12/24/2024 11:20 AM EDT) Pathologist [facility] Von Willebrand Factor Activity 64 50 - 200 % [facility] 12/24/2024 11:2 0 AM EDT 12/24/2024 3:50 PM EDT Jhoana Wilkins MD LAB BLOOD ORDERABLES Final Resul t [facility] [employer] [address] [place] [address] * (ABNORMAL) Complete Blood Count, with Differential (12/24/2024 11:20 AM EDT) Pathologist [facility] WBC 9.97 4.00 - 11.00 Thousand/ uL [...] EDT Jhoana Wilkins MD LAB BLOOD ORDERABLES Final Resul t Performing Organization Address City/[facility] [place] [address], * Partial Thromboplastin Time (PTT) (12/24/2024 11:20 AM EDT) PTT 27.9 24.0 - 33.0 SECONDS [facility] Blood Blood specimen / Unknown 12/24/2024 11:20 AM EDT 12/24/2024 3:50 PM EDT us Jhoana Wilkins MD LAB BLOOD ORDERABLES Final Resul t Performing Organization Address City/[facility]/[place] [address], * PROTIME-INR (12/24/2024 11:20 AM EDT) Prothrombin Time 10.9 9.3 - 11.4 SECONDS [facility] INR 1.04 0.96 - 1.18 [facility] Comment: NO ANTICOAG ??0.96-1.18 STD DOSE ? 2.00-3.00 HIGH DOSE ? 2.50-3.50 Blood Blood specimen / Unknown 12/24/2024 11:20 AM EDT 12/24/2024 3:50 PM EDT Jhoana Wilkins MD LAB BLOOD ORDERABLES Final Resul t Performing Organization Address [facility] Co de Phone Number [address] * (ABNORMAL) FERRITIN (12/24/2024 11:20 AM EDT) Pathologist [facility] Ferritin 164(H) 15 - 150 ng/mL [facility] Blood Blood specimen / Unknown 12/24/2024 11:20 AM EDT 12/24/2024 3:50 PM EDT Jhoana Wilkins MD LAB BLOOD ORDERABLES Final Resul t Performing Organization Address [facility] Co de Phone Number [address] * Comprehensive Metabolic Panel (12/24/2024 11:20 AM EDT) Pathologist [facility] Glucose 82 70 - 99 mg/dL [facility] [...] Alkaline Phosphatase 88 37 - 145 IU/L [facility] Bilirubin, Total 0.2 0.0 - 1.0 mg/dL [facility] GFR Estimated (calculated) >60 >60 [facility] Comment: As of 2021, the [facility] has updated the creatinine- based estimated glomerular filtration rate (eGFRcr) to the updated CKD-EPI 2020 equation. ??This change removes the race coefficient of the older calculation, and was made based on recommendations from the National Kidney Foundation and the [place] [employer]ph[employer]'s Task Force. ??The new [...] 11:20 AM EDT 12/24/2024 3:50 PM EDT us Jhoana Wilkins MD LAB BLOOD ORDERABLES Final Resul t [address] * von Willebrand Factor Antigen (12/24/2024 12:00 AM EDT) Von Willebrand Factor Antigen 128 50 - 200 % [facility] 1 Blood Blood specimen / Unknown 12/24/2024 12/25/2024 Comment:Blood Narrative [facility] ([place]) - 12/26/2024 1:05 PM EDT Test(s) 770126-rea Willebrand Factor (vWF) Ag was developed and its performance characteristics determined by [facility]. It has not been cleared or approved by the Food and Drug Administration. Performed at: ??01 - [facility] [address] ??[id number] Health Safety Coordinator: Avelino Escobar MD, Phone: ??[phone] Jhoana Wilkins MD LAB BLOOD ORDERABLES Final Resul t [facility] ADAM) [facility] 1 * CARDIAC EVENT/LOOP MONITOR RECORD/SCN ANLYSIS/REPORT ([id number]) (11/30/2024 9:51 AM EST) Anatomical Region Laterality Modality Other Narrative 12/14/2024 8:33 AM EDT s Result [facility] Antonio Puente MD CV CARDIAC SERVICES ORDERAB LES Final Result * ECHOCARDIOGRAM COMPREHENSIVE (11/30/2024 8:59 AM EST) Anatomical Region Laterality Modality Ultrasound 12/02/2024 3:44 PM EST Narrative 12/02/2024 3:44 PM EST To view the final report click the scan hyperlink below. Procedure Note Antonio Puente MD - 12/02/2024 To view the final report click the scan hyperlink below. Antonio Puente MD CV ECHO ORDERABLES Final Re sult from Last 3 Months Insurance [facility] OUT OF STATE - PPO BLUE CROSS OUT OF FORMERLY [facility] - [place] BLUE CROSS OUT OF [facility] - [place] BLUE CROSS OUT OF STATE - PPO Care Teams Senior Product Development Manager Relationship Specialty Start Date End Date Radha Martel PA-C [address] [place] [address] PCP - General Internal Medicine 02/24/24 Vinod Robles MD [address] [place] [address] Primary Director Informatics Cardiovascular Disease 09/02/24
--- OUTSIDE RECORDS SUMMARY | 2025-02-09 14:49 | XMS_ITS | Encounter Summary ---
Author Organization [facility] Address [address] [place] [address] Care Team Providers Care Malt House Supervisor Name Role Phone Siddhartha Oakes MD Primary Care Provider [phone] Martha Grey APRN Primary Care Provider Unav ailable Martha Grey APRN Primary Care Provider Unav ailable Mike Burns NP Primary Care Provider Unavail able Martha Grey APRN Primary Care Provider Unav ailable Encounter Details Date Type Department Care Team Description 12/01/2019 [facility] Medical Records [address] [place] [id number] Jian Pimentel DO Social History Tobacco Use [...] on filedocumented in this encounter Care Teams Malt House Supervisor Relationship Specialty Start Date End Date Siddhartha Oakes MD [address] [place] [id number] PCP - General Internal Medicine 05/06/19 01/12/20 Martha Grey APRN [address] [place] [address] PCP - General Internal Medicine 01/13/20 01/19/20 Martha Grey APRN [address] [place] [address] PCP - General Internal Medicine 01/20/20 05/16/22 Mike Burns NP [address] [place] [address] PCP - General Family Practice 05/17/22 11/20/22 Martha Grey APRN [address] [place] [address] PCP - General Internal Medicine 11/21/22 documented as of this encounter
--- OUTSIDE RECORDS SUMMARY | 2025-02-09 14:49 | XMS_ITS | Encounter Summary ---
Author Organization [facility] Address [address] [place] [address] Care Team Providers Care Drafter Civil Engineering Name Role Phone Radha Martel Primary Care Provider [phone] Encounter Details Date Type Department Care Team (Late st Contact Info) Description 12/02/2020 Orders Only [facility] [address] [place] [phone] Kalie Clark MD [address] [place] [address] [phone] Social History Tobacco Use Types Packs/Day Years [...] of this encounter Procedures * Due to [place] [employer] law, this organization might not be sharing negative HIV tests. Procedure Name Priority Date/Time Associated Diagnosis Comments NEURODIAGNOSTIC - SCANNED Routine 04/06/2020 documented in this encounter Results * Due to [place] [employer] law, this organization might not be sharing negative HIV tests. * NEURODIAGNOSTIC - SCANNED (04/06/2020) Kalie Clark MD SCANNED PROCEDURES Final Res ult documented in this encounter Visit Diagnoses Not on filedocumented in this encounter Care Teams Drafter [employer] Relationship Specialty Start Date End Date Radha Martel [address] [place] [address] PCP - General Internal Medicine 03/30/24 documented as of this encounter
--- OUTSIDE RECORDS SUMMARY | 2025-02-09 14:49 | XMS_ITS | Encounter Summary ---
Author Organization Formerly [facility] Address [address] [place] [address] Care Team Providers Care Resident Advisor Name Role Phone Radha Martel PA-C Primary Care Provi mckenna Vinod Robles MD Unavailable [phone] Encounter Details Date Type Department Care Team (Late st Contact Info) Description 04/02/2024 Scanned Document [address] [place] [id number] Radha Martel PA-C 100 [place] [address] Social History Tobacco Use Types Packs/Day Years [...] AM EDT [facility] [address] [place] [address] Raphael Mcdaniel MD 31 [place] [address] 04/01/2025 9:45 AM EDT Office Visit [facility] Department of Cardiology [place] [address] [place] [address] Antonio Puente MD [address] [place] [address] 04/13/2025 8:30 AM EDT [facility] Visit [facility] [address] [place] [address] Theodora Yap, STAFF DEVELOPMENT COORDINATOR 31 [facility] 100 [place] [address] 05/20/2025 3:45 PM EDT Office Visit [facility] 100 [facility] [address] [place] [address] Radha Martel PA-C 100 [place] [address] 07/22/2025 9:20 AM EDT Office Visit [facility] Physicians Department Of Hematology/Oncology [place] [address] [place] [address] Jhoana Wilkins MD 300 [facility] [address] [place], [place] [address] documented as of this encounter Visit Diagnoses Not on filedocumented in this encounter Care Teams Resident Advisor Relationship Specialty Start Date End Date Radha Martel PA-C 100 [place] [address] PCP - General Internal Medicine 02/24/24 Vinod Robles MD [address] [place] [address] Primary Pig Furnace Operator Cardiovascular Disease 09/02/24 documented as of this encounter
--- OUTSIDE RECORDS SUMMARY | 2025-02-09 14:49 | XMS_ITS | Encounter Summary ---
Author Organization [facility] Address [address] [place] [address] Care Team Providers Care Quality Assurance Qa Lab Technician Name Role Phone Emerald Yu MD Primary Care Provider Unavailable Gio Rendonabela DO Primary Care Pro vider Unavailable Emerald Yu MD Primary Care Provider Unavailable Gio Rendonabela DO Primary Care Pro vider Unavailable Siddhartha Oakes MD Primary Care Provider [phone] Martha Grey APRN Primary Care Provider Unav ailable Martha Grey APRN Primary Care Provider Unav ailable Mike Burns NP Primary Care Provider Unavail able Martha Grey APRN Primary Care Provider Unav ailable Encounter Details Date Type Department Care Team Description 03/29/2014 Hospital Medical Records [address] [place] [address] Kali Quiroga MD Social History Tobacco Use [...] on filedocumented in this encounter Care Teams Quality Assurance Qa Lab Technician Relationship Specialty Start Date End Date Emerald Yu MD PCP - General Internal Medicine 12/18/1302/04 Susannah Rendon DO PCP - General Internal Medicine 02/14/15 05/09/15 Emerald Yu MD PCP - General Internal Medicine 05/10/1506/08 Susannah Rendon DO PCP - General Internal Medicine 07/01/15 05/05/19 Siddhartha Oakes MD [address] [place] [address] PCP - General Internal Medicine 05/06/19 01/12/20 Martha Grey APRN [address] [place] [address] PCP - General Internal Medicine 01/13/20 01/19/20 Martha Grey APRN [address] [place] [address] PCP - General Internal Medicine 01/20/20 05/16/22 Mike Burns NP [address] [place] [address] PCP - General Family Practice 05/17/22 11/20/22 Martha Grey APRN 305 [place] [address] PCP - General Internal Medicine 11/21/22 documented as of this encounter
--- OUTSIDE RECORDS SUMMARY | 2025-02-09 14:49 | XMS_ITS | Encounter Summary ---
Author Organization [facility] Address [address] [place] [address] Care Team Providers Care Florist Name Role Phone Susannah Rendon DO Primary Care Pro vider Unavailable Siddhartha Oakes MD Primary Care Provider [phone] Martha Grey APRN Primary Care Provider Unav ailable Martha Grey APRN Primary Care Provider Unav ailable Mike Burns NP Primary Care Provider Unavail able Martha Grey APRN Primary Care Provider Unav ailable Encounter Details Date Type Department Care Team Description 01/16/2017 Walk In Clinic Visit Medical Records [address] [place] [address] Social History Tobacco Use Types Packs/Day Years [...] on filedocumented in this encounter Care Teams Florist Relationship Specialty Start Date End Date [place] Colasacco, Susannah, DO PCP - General Internal Medicine 07/01/15 05/05/19 Siddhartha Oakes MD [address] [place] [address] PCP - General Internal Medicine 05/06/19 01/12/20 Martha Grey APRN [address] [place] [address] PCP - General Internal Medicine 01/13/20 01/19/20 Martha Grey APRN 305 [place] [address] PCP - General Internal Medicine 01/20/20 05/16/22 Mike Burns NP [address] [place] [address] PCP - General Family Practice 05/17/22 11/20/22 Martha Grey APRN 305 [place] [address] PCP - General Internal Medicine 11/21/22 documented as of this encounter
--- OUTSIDE RECORDS SUMMARY | 2025-02-09 14:49 | XMS_ITS | Encounter Summary ---
Author Organization [facility] Address [address] [place] [address] Care Team Providers Care Electronics Technician Name Role Phone Susannah Rendon DO Primary Care Pro vider Unavailable Siddhartha Oakes MD Primary Care Provider [phone] Martha Grey APRN Primary Care Provider Unav ailable Martha Grey APRN Primary Care Provider Unav ailable Mike Burns NP Primary Care Provider Unavail able Martha Grey APRN Primary Care Provider Unav ailable Encounter Details Date Type Department Care Team Description 12/10/2016 Walk In Clinic Visit Medical Records [address] [place] [address] Social History Tobacco Use Types Packs/Day Years [...] on filedocumented in this encounter Care Teams Electronics Technician Relationship Specialty Start Date End Date [place] Colasacco, Susannah, DO PCP - General Internal Medicine 07/01/15 05/05/19 Siddhartha Oakes MD 305 [place] [address] PCP - General Internal Medicine 05/06/19 01/12/20 Martha Grey APRN 305 [place] [address] PCP - General Internal Medicine 01/13/20 01/19/20 Martha Grey APRN 305 [place] [address] PCP - General Internal Medicine 01/20/20 05/16/22 Mike Burns NP 305 [place] [address] PCP - General Family Practice 05/17/22 11/20/22 Martha Grey APRN 305 [place] [address] PCP - General Internal Medicine 11/21/22 documented as of this encounter
--- OUTSIDE RECORDS SUMMARY | 2025-02-09 14:49 | XMS_ITS | Encounter Summary ---
Author Organization [facility] Address [address] [place] [address] Care Team Providers Care Pharmacy Grad Intern Name Role Phone Emerald Yu MD Primary Care Provider Unavailable Oj Boyceo, Susannah DO Primary Care Pro vider Unavailable Emerald Yu MD Primary Care Provider Unavailable Oj Rangel, Susannah DO Primary Care Pro vider Unavailable Siddhartha Oakes MD Primary Care Provider [phone] Martha Grey APRN Primary Care Provider Unav ailable Martha Grey APRN Primary Care Provider Unav ailable Mike Burns NP Primary Care Provider Unavail able Martha Grey APRN Primary Care Provider Unav ailable Encounter Details Date Type Department Care Team Description 08/09/2014 Transfer Records Medical Records [address] [place] [address] Surgical, [facility] Social History Tobacco Use Types Packs/Day Years [...] filedocumented in this encounter Care Teams Pharmacy Grad Intern Relationship Specialty Start Date End Date Emerald Yu MD PCP - General Internal Medicine 12/18/1302/04 Susannah Rendon DO PCP - General Internal Medicine 02/14/15 05/09/15 Emerald Yu MD PCP - General Internal Medicine 05/10/1506/08 Susannah Rendon DO PCP - General Internal Medicine 07/01/15 05/05/19 Siddhartha Oakes MD 305 [place] [address] PCP - General Internal Medicine 05/06/19 01/12/20 Martha Grey APRN [address] [place] [address] PCP - General Internal Medicine 01/13/20 01/19/20 Martha Grey APRN [address] [place] [address] PCP - General Internal Medicine 01/20/20 05/16/22 Mike Burns NP 305 [place] [address] PCP - General Family Practice 05/17/22 11/20/22 Martha Grey APRN [address] [place] [address] PCP - General Internal Medicine 11/21/22 documented as of this encounter
--- OUTSIDE RECORDS SUMMARY | 2025-02-09 14:49 | XMS_ITS | Encounter Summary ---
Author Organization [facility] Address [address] [place] [address] Care Team Providers Care Swedger Name Role Phone Susannah Rendon DO Primary Care Pro vider Unavailable Siddhartha Oakes MD Primary Care Provider [phone] Martha Grey APRN Primary Care Provider Unav ailable Martha Grey APRN Primary Care Provider Unav ailable Mike Burns NP Primary Care Provider Unavail able Martha Grey APRN Primary Care Provider Unav ailable Reason for Visit * Reason Onset Date Comments Provider Call Back 07/12/2015 Encounter Details Date Type Department Care Team Description 07/12/2015 Telephone Adult Medicine [address] [address] Susannah Rendon DO Provider Call Back Social History Tobacco Use [...] encounter Miscellaneous Notes * Telephone Encounter - Keisha Pryor R.N. - 07/12/2015 5:00 PM EDT Pt is not able to stay out of work, if she tries to go back and do light duty she will need a note stating she is being treated for a concussion and she needs to sit as much as possible and stay calm * Telephone Encounter - Philly Smith PA-C - 07/12/2015 4:51 PM EDT Please call and discuss, thanks. * Telephone Encounter - Shimon Wise - 07/12/2015 9:31 AM EDT Caller requesting call back from provider: philly smith Is the caller the patient? YES If caller is not the patient, what is the callers name? Callers relationship to patient? If person calling is not the patient themselves, is there a verbal release in FYI or permanent comments for this person: Reason for call back: Patient would lie to speak to philly concerning her work note Caller offered to speak with the nurse for assistance: YES Response: Patient offered to speak with nurse for assistance and patient agreed. Message forwarded to nurse. documented in this encounter Plan of Treatment Not on file documented as of this encounter Visit Diagnoses Not on filedocumented in this encounter Care Teams Swedger Relationship Specialty Start Date End Date Susannah Rendon DO PCP - General Internal Medicine 07/01/15 05/05/19 Siddhartha Oakes MD 305 [place] [address] PCP - General Internal Medicine 05/06/19 01/12/20 Martha Grey APRN 305 [place] [address] PCP - General Internal Medicine 01/13/20 01/19/20 Martha Grey APRN 305 [place] [address] PCP - General Internal Medicine 01/20/20 05/16/22 Mike Burns NP 305 [place] [address] PCP - General Family Practice 05/17/22 11/20/22 Martha Grey APRN 305 [place] [address] PCP - General Internal Medicine 11/21/22 documented as of this encounter
--- OUTSIDE RECORDS SUMMARY | 2025-02-09 14:49 | XMS_ITS | Encounter Summary ---
Author Organization [facility] Address [address] [place] [address] Care Team Providers Care Core Blower Name Role Phone Radha Martel PA-C Primary Care Provi mckenna Vinod Robles MD Unavailable [phone] Encounter Details Date Type Department Care Team (Late st Contact Info) Description 03/06/2024 Scanned Document [facility] Department Of Hematology/Oncology [place] 1 [facility] [address] [place] [phone] Jhoana Wilkins MD 300 [facility] [address] [place] [address] Social History Tobacco Use Types Packs/Day Years [...] 8:45 AM EDT [facility] [address] [place] [address] Raphael Mcdaniel MD 31 [place] [address] 04/01/2025 9:45 AM EDT Office Visit [facility] Department of Cardiology [place] [address] [place] [address] Antonio Puente MD [address] [place] [address] 04/13/2025 8:30 AM EDT [facility] Visit [facility] [address] [place] [address] Theodora Yap, CLERICAL TRANSCRIBER [facility] 100 [place] [address] 05/20/2025 3:45 PM EDT Office Visit [facility] [address] [place] [address] Radha Martel PA-C 100 [place] [address] 07/22/2025 9:20 AM EDT Office Visit [facility] Department Of Hematology/Oncology [place] [address] [place] [address] Jhoana Wilkins MD 300 [facility] [address] [place] [address] documented as of this encounter Procedures Procedure Name Priority Date/Time Associated Diagnosis Comments LAB RESULT 03/06/2024 7:06 PM EDT documented in this encounter Results * LAB RESULT (03/06/2024 7:06 PM EDT) Jhoana Wilkins MD HX AMB PROCEDURES Final Result documented in this encounter Visit Diagnoses Not on filedocumented in this encounter Care Teams Core Blower Relationship Specialty Start Date End Date Radha Martel PA-C [address] [place] [address] PCP - General Internal Medicine 02/24/24 Vinod Robles MD [place] [address] Primary Laborer [employer] Cardiovascular Disease 09/02/24 documented as of this encounter
--- OUTSIDE RECORDS SUMMARY | 2025-02-09 14:49 | XMS_ITS | Encounter Summary ---
Author Organization [facility] Address [address] [place] [address] Care Team Providers Care Retail Advertising Sales Manager Name Role Phone Emerald Yu MD Primary [...] Date Type Department Care Team Description 07/28/2014 Manager Fast Food Report Medical Records [address] [place] [address] Bimal Damon Social History Tobacco Use Types [...] on filedocumented in this encounter Care Teams Retail Advertising Sales Manager Relationship Specialty Start Date End Date Emerald Yu MD PCP - General Internal Medicine 12/18/1302/04 Susannah Rendon DO PCP - General Internal Medicine 02/14/15 05/09/15 Emerald Yu MD PCP - General Internal Medicine 05/10/1506/08 Susannah Rendon DO PCP - General Internal Medicine 07/01/15 05/05/19 Siddhartha Oakes MD 305 [place] [address] PCP - General Internal Medicine 05/06/19 01/12/20 Martha Grey APRN [address] [place] [address] PCP - General Internal Medicine 01/13/20 01/19/20 Martha Grey APRN [address] [place] [address] PCP - General Internal Medicine 01/20/20 05/16/22 Mike Burns NP [address] [place] [address] PCP - General Family Practice 05/17/22 11/20/22 Martha Grey APRN [address] [place] [address] PCP - General Internal Medicine 11/21/22 documented as of this encounter
--- OUTSIDE RECORDS SUMMARY | 2025-02-09 14:49 | XMS_ITS | Encounter Summary ---
Author Organization [facility] Address [address] [place] [address] Care Team Providers Care Vault Custodian Name Role Phone Martha Grey APRN Primary Care Provider Unav ailable Mike Burns NP Primary Care Provider Unavail able Martha Grey APRN Primary Care Provider Unav ailable Reason for Visit * Reason Onset Date Comments Provider Call Back 01/20/2020 Encounter Details Date Type Department Care Team Description 01/20/2020 Telephone Physiatry - [address] [address] Jian Pimentel DO Provider Call Back Social History Tobacco [...] encounter Miscellaneous Notes * Telephone Encounter - Luanne Silva MD - 01/20/2020 2:09 PM EDT Needs ER or physical appointment. NOT Audio, it is not possible to evaluate 2nd time via Audio * Telephone Encounter - Petar Keen L.P.N. - 01/20/2020 1:20 PM EDT She went to the ER They did nothing She doesn't want to go Do you want to try a Audio visit ? * Telephone Encounter - Luanne Silva MD - 01/20/2020 12:29 PM EDT Patient should be evaluated in the ER, given her symptoms. * Telephone Encounter - Petar Hopper.P.N. - 01/20/2020 12:02 PM EDT Please review message from Dr. Pimentel nurse and advise Do you want a audio visit or send her to Er * Telephone Encounter - Kenia Tee L.P.N. - 01/20/2020 10:59 AM EDT Spoke to patient she states that she is having severe back pain With tingling down her legs She states that her pain is causing her to Vomit ,she has tingling down her legs,she states that she fell On 01/17/20 from the pain in her back her Legs Just give out She states that the pain is causing sweating because of the severity of the pain She did have a caudal injection with Dr Pimentel on 12/01/19 she has appt for injection right S1-S2 TFE on 01/27/20 She had audio visit with Dr Silva on 01/17/20 was prescribed diazepam and directed to go to the er if symptoms worse or has numbness in her legs She was seen in the er om 01/17/20 she was given injection of torodal at the er,given script for Naproxen ,she states not helping her She is also on gabapentin,topomax And tizanidine ,she states she cannot take the tizanidine During the day due to drowsiness,she has a 7 year old child at home with her Explained to her that I do not have Anyone in the office today to see her ,Dr Pimentel is off today,and working from home tomorrow No available appointments to be seen tomorrow Advised her to be seen in the er if she is having that much pain That she is vomiting,she states that she Cannot go to the er at this time as she has her child home with her She can also call her PCP office She then stated that she will call her PCP office ,she had called them and was waiting for them to call her When she called our office Explained that I will forward this note to the [place] Triage pool To review She is agrees with this * Telephone Encounter - Anabela Hernandez - 01/20/2020 10:41 AM EDT Patient is calling she is having really intense back pain. Pain is causing her to vomit and she is also having tingling sensation down her legs. She was prescribed some medication from urgent care but is still in a a lot of pain. Patient would like a provider call back to discuss. documented in this encounter Plan of Treatment Not on file documented as of this encounter Visit Diagnoses Not on filedocumented in this encounter Care Teams Vault Custodian Relationship Specialty Start Date End Date Martha Grey APRN PCP - General Internal Medicine 01/20/20 05/16/22 Mike Burns NP PCP - General Family Practice 05/17/22 11/20/22 Martha Grey APRN PCP - General Internal Medicine 11/21/22 documented as of this encounter
--- OUTSIDE RECORDS SUMMARY | 2025-02-09 14:49 | XMS_ITS | Encounter Summary ---
Author Organization [facility] Address [address] [place] [address] Care Team Providers Care Four Horse Hitch Driver Name Role Phone Siddhartha Oakes MD Primary Care Provider [phone] Martha Grey APRN Primary Care Provider Unav ailable Martha Grey APRN Primary Care Provider Unav ailable Mike Burns NP Primary Care Provider Unavail able Martha Grey APRN Primary Care Provider Unav ailable Encounter Details Date Type Department Care Team Description 12/08/2019 Release of Information Medical Records [address] [place] [address] Abstract, Provider Social History Tobacco Use Types [...] on filedocumented in this encounter Care Teams Four Horse Hitch Driver Relationship Specialty Start Date End Date Siddhartha Oakes MD [address] [place] [address] PCP - General Internal Medicine 05/06/19 01/12/20 Martha Grey APRN [address] [place] [address] PCP - General Internal Medicine 01/13/20 01/19/20 Martha Grey APRN [address] [place] [address] PCP - General Internal Medicine 01/20/20 05/16/22 Mike Burns NP [address] [place] [address] PCP - General Family Practice 05/17/22 11/20/22 Martha Grey APRN [address] [place] [address] PCP - General Internal Medicine 11/21/22 documented as of this encounter
--- OUTSIDE RECORDS SUMMARY | 2025-02-09 14:49 | XMS_ITS | Encounter Summary ---
Author Organization [facility] Address [address] [place] [address] Care Team Providers Care Contact Lens Lathe Operator Name Role Phone Martha Grey APRN Primary Care Provider Unav ailable Mike Burns NP Primary Care Provider Unavail able Martha Grey APRN Primary Care Provider Unav ailable Reason for Referral * Non NANI (Routine) - Authorized/Booked Specialty Diagnoses / Procedures Referred By Aman t Referred To Contact Nephrology Procedures REFERRAL TO NEPHROLOGY Ingrid Price APRN [address] [place] [address] [address] [address] Referral ID Status Reason Start Date Expiration Date V isits Requested Visits Authorized [id number] SEE NOTE Authorized/ Booked 03/07/2021 03/07/2022 1 1 Encounter Details Date Type Department Care Team Description 03/07/2021 Orders Only Adult Medicine A - [address] [address] Ingrid Price APRN [address] [place] [address] Low phosphate levels (Primary Dx); Low calcium levels Social History Tobacco Use Types Packs/Day Years [...] on file documented as of this encounter Results * PTH INTACT (03/07/2021 4:50 PM EDT) INTACT PTH 77 18 - 88 pg/mL 03/07/2021 6:25 PM EDT [facility] 03/07/2021 4:50 PM EDT 03/07/2021 4:51 PM EDT Narrative [facility] - 03/07/2021 6:25 PM EDT Release to patient->Immediate Ingrid Price APRN LAB Performing Organization Address [facility] de Phone Number [facility] * THYROID PROFILE W/TSH (03/07/2021 4:50 PM EDT) TSH CASCADE 1.53 0.40 - 4.00 uIU/ml 03/07/2021 6:20 PM EDT [facility] 03/07/2021 4:50 PM EDT 03/07/2021 4:51 PM EDT Narrative [facility] - 03/07/2021 6:20 PM EDT Release to patient->Immediate Ingrid Price APRN LAB Performing Organization Address [facility]/ZIP Co de Phone Number [facility] documented in this encounter Visit Diagnoses Diagnosis Low phosphate levels- Primary Disorders of phosphorus metabolism Low calcium levels Hypocalcemia Low calcium levels Hypocalcemia documented in this encounter Care Teams Contact Lens Lathe Operator Relationship Specialty Start Date End Date Martha Grey APRN PCP - General Internal Medicine 01/20/20 05/16/22 Mike Burns NP PCP - General Family Practice 05/17/22 11/20/22 Martha Grey APRN PCP - General Internal Medicine 11/21/22 documented as of this encounter
--- OUTSIDE RECORDS SUMMARY | 2025-02-09 14:49 | XMS_ITS | Encounter Summary ---
Author Organization [facility] Address [address] [place] [address] Care Team Providers Care Endocrinologist Name Role Phone Radha Martel Primary Care Provider [phone] Encounter Details Date Type Department Care Team (Late st Contact Info) Description 12/02/2020 myChart Message [facility] [address] [place] [id number] Kalie Clark MD [address] [place] [phone] RE: Non-Urgent Medical Question Social History Tobacco [...] on filedocumented in this encounter Care Teams Endocrinologist Relationship Specialty Start Date End Date Radha Martel [address] [place] [address] PCP - General Internal Medicine 03/30/24 documented as of this encounter
--- OUTSIDE RECORDS SUMMARY | 2025-02-09 14:49 | XMS_ITS | Encounter Summary ---
Author Organization [facility] Address [address] [place] [address] Care Team Providers Care Electrical Subcontractor Name Role Phone Susannah Rendon DO Primary Care Pro vider Unavailable Siddhartha Oakes MD Primary Care Provider [phone] Martha Grey APRN Primary Care Provider Unav ailable Martha Grey APRN Primary Care Provider Unav ailable Mike Burns NP Primary Care Provider Unavail able Martha Grey APRN Primary Care Provider Unav ailable Encounter Details Date Type Department Care Team Description 12/28/2016 Refill OBGYN - [place] [address] [place] [address] Eliseo Rodríguez MD Social History Tobacco Use [...] appointment for exam. * Telephone Encounter - Libra Rios M.A. - 12/28/2016 8:50 AM EDT [...] MG tablet [Eliseo Rodríguez MD] [facility] [address] [place], [place] [address] Comment: documented in this encounter Plan of Treatment Not on file documented as of this encounter Visit Diagnoses Not on filedocumented in this encounter Care Teams Electrical Subcontractor Relationship Specialty Start Date End Date Susannah Rendon DO PCP - General Internal Medicine 07/01/15 05/05/19 Siddhartha Oakes MD [address] [place] [address] PCP - General Internal Medicine 05/06/19 01/12/20 Martha Grey APRN [address] [place] [address] PCP - General Internal Medicine 01/13/20 01/19/20 Martha Grey APRN [address] [place] [address] PCP - General Internal Medicine 01/20/20 05/16/22 Mike Burns NP [address] [place] [address] PCP - General Family Practice 05/17/22 11/20/22 Martha Grey, VIRTUAL REALITY SPECIALIST [address] [place] [address] PCP - General Internal Medicine 11/21/22 documented as of this encounter
--- OUTSIDE RECORDS SUMMARY | 2025-02-09 14:49 | XMS_ITS | Encounter Summary ---
Author Organization [facility] Address [address] [place] [address] Care Team Providers Care Dat Instructor Name Role Phone Martha Grey APRN Primary Care Provider Unav ailable Mike Burns NP Primary Care Provider Unavail able Martha Grey APRN Primary Care Provider Unav ailable Reason for Visit * Reason Comments E-prescribe Rx Request Encounter Details Date Type Department Care Team Description 02/24/2021 Refill Adult Medicine [address] [address] Martha Grey APRN E-prescribe Rx Request Social [...] N/A Patients current insurance carrier is: [facility] / Plan: CC-KRISTYN SILVER TYPE 2 / Product Type: HMO [id number] documented in this encounter Plan of Treatment Not on file documented as of this encounter Visit Diagnoses Not on filedocumented in this encounter Care Teams Dat Instructor Relationship Specialty Start Date End Date Martha Grey APRN PCP - General Internal Medicine 01/20/20 05/16/22 Mike Burns NP PCP - General Family Practice 05/17/22 11/20/22 Martha Grey APRN PCP - General Internal Medicine 11/21/22 documented as of this encounter
--- OUTSIDE RECORDS SUMMARY | 2025-02-09 14:49 | XMS_ITS | Encounter Summary ---
Author Organization [facility] Address [address] [place] [address] Care Team Providers Care Netbackup Admin Name Role Phone Martha Grey APRN Primary Care Provider Unav ailable Mike Burns NP Primary Care Provider Unavail able Martha Grey APRN Primary Care Provider Unav ailable Encounter Details Date Type Department Care Team Description 12/06/2020 Old Medical Records Medical Records [address] [place] [address] Abstract, Provider Social History Tobacco Use Types [...] on filedocumented in this encounter Care Teams Netbackup Admin Relationship Specialty Start Date End Date Martha Grey APRN PCP - General Internal Medicine 01/20/20 05/16/22 Mike Burns NP PCP - General Family Practice 05/17/22 11/20/22 Martha Grey APRN PCP - General Internal Medicine 11/21/22 documented as of this encounter
--- OUTSIDE RECORDS SUMMARY | 2025-02-09 14:49 | XMS_ITS | Encounter Summary ---
Author Organization [facility] Address [address] [place] [address] Care Team Providers Care Architecture Analyst Name Role Phone Martha Grey APRN Primary Care Provider Unav ailable Martha Grey APRN Primary Care Provider Unav ailable Mike Burns NP Primary Care Provider Unavail able Martha Grey APRN Primary Care Provider Unav ailable Encounter Details Date Type Department Care Team Description 01/17/2020 Orders Only Adult Medicine B - [address] [address] Luanne Alejandra MD Social History Tobacco Use [...] on filedocumented in this encounter Care Teams Architecture Analyst Relationship Specialty Start Date End Date Martha Grey APRN PCP - General Internal Medicine 01/13/20 01/19/20 Martha Grey APRN PCP - General Internal Medicine 01/20/20 05/16/22 Mike Burns NP PCP - General Family Practice 05/17/22 11/20/22 Martha Grey APRN PCP - General Internal Medicine 11/21/22 documented as of this encounter
--- OUTSIDE RECORDS SUMMARY | 2025-02-09 14:49 | XMS_ITS | Encounter Summary ---
Author Organization [facility] Address [address] [place] [address] Care Team Providers Care Supplier Quality Manager Name Role Phone Siddhartha Oakes MD Primary Care Provider [phone] Martha Grey APRN Primary Care Provider Unav ailable Martha Grey APRN Primary Care Provider Unav ailable Mike Burns NP Primary Care Provider Unavail able Martha Grey APRN Primary Care Provider Unav ailable Encounter Details Date Type Department Care Team Description 01/08/2020 [facility] Medical Records [address] [place] [address] Abstract, Provider Social History Tobacco Use Types [...] on filedocumented in this encounter Care Teams Supplier Quality Manager Relationship Specialty Start Date End Date Siddhartha Oakes MD [address] [place] [address] PCP - General Internal Medicine 05/06/19 01/12/20 Martha Grey APRN [address] [place] [address] PCP - General Internal Medicine 01/13/20 01/19/20 Martha Grey APRN [address] [place] [address] PCP - General Internal Medicine 01/20/20 05/16/22 Mike Burns NP [address] [place] [address] PCP - General Family Practice 05/17/22 11/20/22 Martha Grey APRN [address] [place] [address] PCP - General Internal Medicine 11/21/22 documented as of this encounter
--- OUTSIDE RECORDS SUMMARY | 2025-02-09 14:49 | XMS_ITS | Encounter Summary ---
Author Organization [facility] Address [address] [place] [address] Care Team Providers Care Stiff Leg Derrick Operator Name Role Phone Martha Grey APRN Primary Care Provider Unav ailable Mike Burns NP Primary Care Provider Unavail able Martha Grey APRN Primary Care Provider Unav ailable Encounter Details Date Type Department Care Team Description 01/23/2021 Pt. Non Urgent Medical Question General Surgery - [place] [address] [facility] [address] [place] [address] Jasmine Smith MD [address] [place] [address] [address] [place], [place] [id number] Social History Tobacco Use Types Packs/Day Years [...] on filedocumented in this encounter Care Teams Stiff Leg Derrick Operator Relationship Specialty Start Date End Date Martha Grey APRN PCP - General Internal Medicine 01/20/20 05/16/22 Mike Burns NP PCP - General Family Practice 05/17/22 11/20/22 Martha Grey APRN PCP - General Internal Medicine 11/21/22 documented as of this encounter
--- OUTSIDE RECORDS SUMMARY | 2025-02-09 14:49 | XMS_ITS | Encounter Summary ---
Author Organization [facility] Address [address] [place] [address] Care Team Providers Care Diaper Folder Name Role Phone Susannah Rendon DO Primary Care Pro vider Unavailable Siddhartha Oakes MD Primary Care Provider [phone] Martha Grey APRN Primary Care Provider Unav ailable Martha Grey APRN Primary Care Provider Unav ailable Mike Burns NP Primary Care Provider Unavail able Martha Grey APRN Primary Care Provider Unav ailable Reason for Visit * Reason Onset Date Comments TEST RESULTS 08/04/2015 Encounter Details Date Type Department Care Team Description 08/04/2015 Telephone OBGYN - [place] [address] Ariel Varner MD [address] [place] [address] TEST RESULTS Social History Tobacco [...] requests that I transfer her call to [place]. Call transferred per Valerie in [place] to [phone]. * Telephone Encounter - Shelbi [...] left for patient to return call to [facility] Ob triage. * Telephone Encounter - Radha [...] on filedocumented in this encounter Care Teams Diaper Folder Relationship Specialty Start Date End Date Susannah Rendon DO PCP - General Internal Medicine 07/01/15 05/05/19 Siddhartha Oakes MD [address] [place] [address] PCP - General Internal Medicine 05/06/19 01/12/20 Martha Grey APRN [address] [place] [address] PCP - General Internal Medicine 01/13/20 01/19/20 Martha Grey APRN [address] [place] [address] PCP - General Internal Medicine 01/20/20 05/16/22 Mike Burns NP [address] [place] [address] PCP - General Family Practice 05/17/22 11/20/22 Martha Grey APRN [address] [place] [address] PCP - General Internal Medicine 11/21/22 documented as of this encounter
--- OUTSIDE RECORDS SUMMARY | 2025-02-09 14:50 | XMS_ITS | Encounter Summary ---
Author Organization [facility] Address [address] [place] [address] Care Team Providers Care Director Of Search Engine Marketing Name Role Phone Radha Martel PA-C Primary Care Provi mckenna Vinod Robles MD Unavailable [phone] Encounter Details Date Type Department Care Team (Late st Contact Info) Description 08/19/2024 Scanned Document [address] [address] Radha Martel PA-C [address] [place] [address] Social History Tobacco Use Types Packs/Day Years [...] AM EDT Office Visit [facility] [address] [place] [address] Raphael Mcdaniel MD [address] [place] [address] 04/01/2025 9:45 AM EDT Office Visit [facility] Department of Cardiology [place] [address] [facility] [address] [place] [address] Antonio Puente MD 160 [facility] 100 [place] [address] 04/13/2025 8:30 AM EDT [facility] [address] [place] [address] Theodora Yap APRN [address] [address] 05/20/2025 3:45 PM EDT Office Visit [facility] [address] [facility] [address] [place] [address] Radha Martel PA-C [address] [place] [address] 07/22/2025 9:20 AM EDT Office Visit [facility] Department Of Hematology/Oncology [place] [address] [place] [address] Jhoana Wilkins MD 300 [facility] [address] [place], [place] [address] documented as of this encounter Visit Diagnoses Not on filedocumented in this encounter Care Teams Director Of Search Engine Marketing Relationship Specialty Start Date End Date Radha Martel PA-C [address] [place] [address] PCP - General Internal Medicine 02/24/24 Vinod Robles MD [facility] [place] [address] Primary Racecar Driver Cardiovascular Disease 09/02/24 documented as of this encounter
--- OUTSIDE RECORDS SUMMARY | 2025-02-09 14:50 | XMS_ITS | Encounter Summary ---
Author Organization [facility] Address [address] [place] [address] Care Team Providers Care Network Admin Name Role Phone Martha Grey APRN Primary Care Provider Unav ailable Mike Burns NP Primary Care Provider Unavail able Martha Grey APRN Primary Care Provider Unav ailable Encounter Details Date Type Department Care Team Description 05/06/2020 [facility] Medical Records [address] [place] [address] Jasmine Smith MD [address] [place] [address] [place] [address] Social History Tobacco Use Types Packs/Day Years [...] on filedocumented in this encounter Care Teams Network Admin Relationship Specialty Start Date End Date Martha Grey APRN PCP - General Internal Medicine 01/20/20 05/16/22 Glogowski, Mike, COMMUNITY RELATIONS DIRECTOR PCP - General Family Practice 05/17/22 11/20/22 Martha Grey APRN PCP - General Internal Medicine 11/21/22 documented as of this encounter
--- OUTSIDE RECORDS SUMMARY | 2025-02-09 14:50 | XMS_ITS | Referral Summary ---
Author Organization [facility] Address [address] [place] [address] Care Team Providers Care Cdl Dedicated Truck Driver Name Role Phone Radha Martel Primary Care Provider [phone] Allergies Active Allergy Reactions Criticality Noted Date Comments Adhesive Unknown 01/17/2020 tape Clindamycin Hcl Anaphylaxis High 10/23/2011 Tapentadol Rash High 08/04/2014 Venlafaxine Unknown 06/01/2020 Suicidal ideation Medications valACYclovir (VALTREX) 500 mg tablet Take 1 tablet by mouth daily. 1 Active triamcinolone (NASACORT) 55 mcg nasal inhaler U 2 SPRAYS IEN D 0 Active Mi-Acid Gas Relief,simethic on, 80 mg chewable tablet PYTHON DEVELOPER ONE T Q 6 H PRN 0 [...] on file Insurance HSNO/FREE CARE Care Teams Cdl Dedicated Truck Driver Relationship Specialty Start Date End Date Radha Martel [address] [place] [address] PCP - General Internal Medicine 03/30/24
--- OUTSIDE RECORDS SUMMARY | 2025-02-09 14:50 | XMS_ITS | Encounter Summary ---
Author Organization [facility] Address [address] [place] [address] Care Team Providers Care Digital Tech Name Role Phone Radha Martel PA-C Primary Care Provi mckenna Vinod Robles MD Unavailable [phone] Reason for Visit * Reason Comments Referral Encounter Details Date Type Department Care Team (Late st Contact Info) Description 07/16/2024 Telephone [facility] [address] [place] [address] Radha Martel PA-C [address] [place] [address] Referral Social History Tobacco Use Types Packs/Day [...] 8:45 AM EDT [facility] [address] [address] Raphael Mcdaniel MD 31 [place] [address] 04/01/2025 9:45 AM EDT Office Visit [facility] Department of Cardiology [place] [address] [phone] Antonio Puente MD [address] [address] 04/13/2025 8:30 AM EDT [facility] [address] [address] Theodora Yap APRN [address] [address] 05/20/2025 3:45 PM EDT Office Visit [facility] 100 [facility] 101 [place] [phone] Radha Martel PA-C [address] [place], [place] [address] 07/22/2025 9:20 AM EDT Office Visit [facility] Department Of Hematology/Oncology [place] [address] [place] [phone] Jhoana Wilkins MD 300 [facility] [address] [place], [place] [address] documented as of this encounter Visit Diagnoses Not on filedocumented in this encounter Care Teams Digital Tech Relationship Specialty Start Date End Date Radha Martel PA-C [address] [place], [place] [phone] PCP - General Internal Medicine 02/24/24 Vinod Robles MD [address] [place] [address] Primary Youth Coordinator Cardiovascular Disease 09/02/24 documented as of this encounter
--- OUTSIDE RECORDS SUMMARY | 2025-02-09 14:50 | XMS_ITS | Encounter Summary ---
Author Organization [facility] Address [address] [place] [address] Care Team Providers Care Job Estimator Name Role Phone Martha Grey APRN Primary Care Provider Unav ailable Mike Burns NP Primary Care Provider Unavail able Martha Grey APRN Primary Care Provider Unav ailable Encounter Details Date Type Department Care Team Description 05/11/2020 Orders Only Medical Records [address] [place] [address] Abstract, Provider Social History Tobacco Use Types [...] on filedocumented in this encounter Care Teams Job Estimator Relationship Specialty Start Date End Date Martha Grey APRN PCP - General Internal Medicine 01/20/20 05/16/22 Mike Burns NP PCP - General Family Practice 05/17/22 11/20/22 Martha Grey APRN PCP - General Internal Medicine 11/21/22 documented as of this encounter
--- OUTSIDE RECORDS SUMMARY | 2025-02-09 14:50 | XMS_ITS | Encounter Summary ---
Author Organization [facility] Address [address] [place] [address] Care Team Providers Care Childbirth And Infant Care Teacher Name Role Phone Martha Grey APRN Primary Care Provider Unav ailable Mike Burns NP Primary Care Provider Unavail able Martha Grey APRN Primary Care Provider Unav ailable Encounter Details Date Type Department Care Team Description 06/01/2020 Orders Only Adult Medicine [address] [address] Martha Grey APRN Social History Tobacco Use [...] on filedocumented in this encounter Care Teams Childbirth And Infant Care Teacher Relationship Specialty Start Date End Date Martha Grey APRN PCP - General Internal Medicine 01/20/20 05/16/22 Mike Burns NP PCP - General Family Practice 05/17/22 11/20/22 Martha Grey APRN PCP - General Internal Medicine 11/21/22 documented as of this encounter
--- OUTSIDE RECORDS SUMMARY | 2025-02-09 14:50 | XMS_ITS | Encounter Summary ---
Author Organization [facility] Address [address] [place] [address] Care Team Providers Care Fluoroscope Operator Name Role Phone Martha Grey APRN Primary Care Provider Unav ailable Mike Burns NP Primary Care Provider Unavail able Martha Grey APRN Primary Care Provider Unav ailable Encounter Details Date Type Department Care Team Description 09/13/2020 [facility] Medical Records [address] [place] [address] Keysha Martinez MD Social History Tobacco Use [...] on filedocumented in this encounter Care Teams Fluoroscope Operator Relationship Specialty Start Date End Date Martha Grey APRN PCP - General Internal Medicine 01/20/20 05/16/22 Mike Burns NP PCP - General Family Practice 05/17/22 11/20/22 Martha Grey APRN PCP - General Internal Medicine 11/21/22 documented as of this encounter
--- OUTSIDE RECORDS SUMMARY | 2025-02-09 14:50 | XMS_ITS | Encounter Summary ---
Author Organization [facility] Address [address] [place] [address] Care Team Providers Care Air Quality Chemist Name Role Phone Martha Grey APRN Primary Care Provider Unav ailable Mike Burns NP Primary Care Provider Unavail able Martha Grey APRN Primary Care Provider Unav ailable Encounter Details Date Type Department Care Team Description 04/19/2020 Telephone Allergy [place] [address] [place] [address] Marilee Olivas MD Social History [...] encounter Miscellaneous Notes * Telephone Encounter - aSndhya Baker - 04/19/2020 3:57 PM EDT Left message for patient to call and reschedule her 05/17 appointment to telehealth documented in this encounter Plan of Treatment Not on file documented as of this encounter Visit Diagnoses Not on filedocumented in this encounter Care Teams Air Quality Chemist Relationship Specialty Start Date End Date Martha Grey APRN PCP - General Internal Medicine 01/20/20 05/16/22 Mike Burns NP PCP - General Family Practice 05/17/22 11/20/22 Martha Grey APRN PCP - General Internal Medicine 11/21/22 documented as of this encounter
--- OUTSIDE RECORDS SUMMARY | 2025-02-09 14:50 | XMS_ITS | Clinical Summary ---
Author Organization [facility] Address [address] [place] [address] Care Team Providers Care Manager Plan Name Role Phone Radha Martel Primary Care Provider [phone] Allergies Active Allergy Reactions Criticality Noted Date [...] opinion from another surgeon versus referral to [facility] Endometriosis clinic in [place]. She would like referral to the endometriosis [...] Advance Directives For more information, please contact: [phone] Latest Code Status on File Code Status [...] way: discussion with patient . Care Teams Manager Plan Relationship Specialty Start Date End Date Radha Martel PA [address] [place] [address] PCP - General Physician Controller Instructor 02/24/24
--- OUTSIDE RECORDS SUMMARY | 2025-02-09 14:50 | XMS_ITS | Encounter Summary ---
Author Organization [facility] Address [address] [place] [address] Care Team Providers Care Cnc Router Operator Name Role Phone Radha Martel PA-C Primary Care Provi mckenna Vinod Robles MD Unavailable [phone] Encounter Details Date Type Department Care Team (Late st Contact Info) Description 10/29/2024 11:45 AM EST Hospital Encounter [facility] [address] [place] [phone] Social History Tobacco Use Types Packs/Day Years [...] 8:45 AM EDT [facility] [address] [place] [address] Raphael Mcdaniel MD [address] [place] [address] 04/01/2025 9:45 AM EDT Office Visit [facility] Department of Cardiology [place] [address] [facility] [address] [place] [address] Antonio Puente MD 160 [facility] 100 [place] [address] 04/13/2025 8:30 AM EDT [facility] Visit [facility] [address] [place] [address] Theodora Yap, PANFILO [address] [address] 05/20/2025 3:45 PM EDT Office Visit [facility] [address] [place] [address] Radha Martel PA-C [address] [place] [address] 07/22/2025 9:20 AM EDT Office Visit [facility] Department Of Hematology/Oncology [place] [address] [place] [phone] Jhoana Wilkins MD 300 [facility] [address] [place], [place] [address] documented as of this encounter Procedures Procedure [...] your patient to us, Jassi Boone MD [id number] (Electronically Signed - 10/29/2024 12:28) Copy: PATIENT [...] Boone MD 10/29/2024 12:28 PM EST RPWorkstation: [id number] Thank you for referring your patient to us, Jassi Boone MD [id number] (Electronically Signed - 10/29/2024 12:28) Copy: PATIENT , JANAK Longoria IMPardeep DIAGNOSTIC IMAGING ORDERABL ES Final Result documented in this encounter Visit Diagnoses Not on filedocumented in this encounter Care Teams Cnc Router Operator Relationship Specialty Start Date End Date Radha Martel PA-C [address] [place] [address] PCP - General Internal Medicine 02/24/24 Vinod Robles MD [address] [place] [address] Primary Apartment Leasing Manager Cardiovascular Disease 09/02/24 documented as of this encounter
--- OUTSIDE RECORDS SUMMARY | 2025-02-09 14:50 | XMS_ITS | Encounter Summary ---
Author Organization [facility] Address [address] [place] [address] Care Team Providers Care Instrument Checker Name Role Phone Martha Grey APRN Primary Care Provider Unav ailable Mike Burns NP Primary Care Provider Unavail able Martha Grey APRN Primary Care Provider Unav ailable Encounter Details Date Type Department Care Team Description 06/15/2020 Refill Rheumatology - [address] [address] Mario Serrano MD Social History Tobacco Use Types Packs/Day [...] encounter Miscellaneous Notes * Telephone Encounter - Gloria Easton M.A. - 06/16/2020 9:25 AM EDT Rx sent to pharmacy as requested * Telephone Encounter - Tiffany Anderson M.A. - 06/15/2020 1:30 PM EDT Last visit: 11/26 Next visit: none- Mychart sent. Last filled: 05/16, 30 day supply documented in this encounter Plan of Treatment Not on file documented as of this encounter Visit Diagnoses Not on filedocumented in this encounter Care Teams Instrument Checker Relationship Specialty Start Date End Date Martha Grey APRN PCP - General Internal Medicine 01/20/20 05/16/22 Mike Burns NP PCP - General Family Practice 05/17/22 11/20/22 Martha Grey APRN PCP - General Internal Medicine 11/21/22 documented as of this encounter
--- OUTSIDE RECORDS SUMMARY | 2025-02-09 14:50 | XMS_ITS | Encounter Summary ---
Author Organization [facility] Address [address] [place] [address] Care Team Providers Care Transcription Specialist Name Role Phone Martha Grey APRN Primary Care Provider Unav ailable Mike Burns NP Primary Care Provider Unavail able Martha Grey APRN Primary Care Provider Unav ailable Encounter Details Date Type Department Care Team Description 06/24/2020 Orders Only Medical Records [address] [place] [address] Jasmine Smith MD [address] [place] [address] [place] [address] Social History Tobacco Use Types Packs/Day Years [...] file documented as of this encounter Procedures Procedure Name Priority Date/Time Associated Diagnosis Comments OUTSIDE PATHOLOGY Routine 05/06/2020 documented in this encounter Results * OUTSIDE PATHOLOGY (05/06/2020) Jasmine Smith MD OUTSIDE LAB documented in this encounter Visit Diagnoses Not on filedocumented in this encounter Care Teams Transcription Specialist Relationship Specialty Start Date End Date Martha Grey APRN PCP - General Internal Medicine 01/20/20 05/16/22 Mike Burns NP PCP - General Family Practice 05/17/22 11/20/22 Martha Grey APRN PCP - General Internal Medicine 11/21/22 documented as of this encounter
--- OUTSIDE RECORDS SUMMARY | 2025-02-09 14:50 | XMS_ITS | Encounter Summary ---
Author Organization [facility] Address [address] [place] [address] Care Team Providers Care Gas Charger Name Role Phone Martha Grey APRN Primary Care Provider Unav ailable Mike Burns NP Primary Care Provider Unavail able Martha Grey APRN Primary Care Provider Unav ailable Encounter Details Date Type Department Care Team Description 05/12/2020 Pt. Non Urgent Medical Question General Surgery - [place] [address] [facility] [address] [place] [address] Jasmine Smith MD [address] [place] [address] [address] [place], [place] [id number] Social History Tobacco Use Types Packs/Day Years [...] as of this encounter Progress Notes * Farheen Patel M.A. - 05/12/2020 2:09 PM EDTFrom: Deyanira Stewart To: Jasmine Smith MD Sent: 05/12/2020 1:57 PM EDT Subject: drinking/eating Good afternoon , I had surgery on 05/06 and saw you in the hospital for dehydration a few days after. I wanted to report that I am feeling alot better. My questions is this I'm having this insatiable hunger, are you able to start the phase 3 diet early? Please advise. Thank you documented in this encounter Plan of Treatment Not on file documented as of this encounter Visit Diagnoses Not on filedocumented in this encounter Care Teams Gas Charger Relationship Specialty Start Date End Date Martha Grey APRN PCP - General Internal Medicine 01/20/20 05/16/22 Mike Burns NP PCP - General Family Practice 05/17/22 11/20/22 Martha Grey APRN PCP - General Internal Medicine 11/21/22 documented as of this encounter
--- OUTSIDE RECORDS SUMMARY | 2025-02-09 14:50 | XMS_ITS | Clinical Summary ---
Author Organization [facility] Address [address] [place] [address] Care Team Providers Care Whip Operator Name Role Phone Radha Martel Primary Care Provider [phone] Allergies Active Allergy Reactions Criticality Noted Date Comments Adhesive Unknown 01/17/2020 tape Clindamycin Hcl Anaphylaxis High 10/23/2011 Tapentadol Rash High 08/04/2014 Venlafaxine Unknown 06/01/2020 Suicidal ideation Medications valACYclovir (VALTREX) 500 mg tablet Take 1 tablet by mouth daily. 1 Active triamcinolone (NASACORT) 55 mcg nasal inhaler U 2 SPRAYS IEN D 0 Active Mi-Acid Gas Relief,simethic on, 80 mg chewable tablet MINERAL ENGINEER ONE T Q 6 H PRN 0 [...] series) 01/10/2067 Insurance HSNO/FREE CARE Care Teams Whip Operator Relationship Specialty Start Date End Date Radha Martel [address] [place] [address] PCP - General Internal Medicine 03/30/24
--- OUTSIDE RECORDS SUMMARY | 2025-02-09 14:50 | XMS_ITS | Encounter Summary ---
Author Organization [facility] Address [address] [place] [address] Care Team Providers Care Manufacturing Inspector Name Role Phone Radha Martel PA-C Primary Care Provi mkcenna Vinod Robles MD Unavailable [phone] Encounter Details Date Type Department Care Team (Late st Contact Info) Description 10/29/2024 Scanned Document [facility] 80 [facility] [address] [place] [address] Provider, Generic Social History Tobacco Use [...] AM EDT Office [place] [facility] [address] Raphael Mcdaniel MD 31 [place] [address] 04/01/2025 9:45 AM EDT Office Visit [facility] Department of Cardiology [place] [address] [place] [address] Antonio Puente MD 160 [facility] [address] [place] [address] 04/13/2025 8:30 AM EDT [facility] Visit [facility] [address] [place] [address] Theodora Yap, POLICE OFFICER CRIME PREVENTION 31 [facility] 100 [place], [place] [id number] 05/20/2025 3:45 PM EDT Office Visit [facility] 100 [facility] [address] [place] [address] Radha Martel PA-C [address] [place] [address] 07/22/2025 9:20 AM EDT Office Visit [facility] Department Of Hematology/Oncology [place] [address] [place] [address] Conner Gomez 107 [place] [address] Jhoana Wilkins MD 300 [facility] [address] [place] [address] documented as of this encounter Visit Diagnoses Not on filedocumented in this encounter Care Teams Manufacturing Inspector Relationship Specialty Start Date End Date Radha Martel PA-C [address] [place] [address] PCP - General Internal Medicine 02/24/24 Vinod Robles MD [address] [place] [address] Primary Yarn Rewinder Cardiovascular Disease 09/02/24 documented as of this encounter
--- OUTSIDE RECORDS SUMMARY | 2025-02-09 14:50 | XMS_ITS | Encounter Summary ---
Author Organization [facility] Address [address] [place] [address] Care Team Providers Care Human Resource Management Instructor Name Role Phone Radha Martel PA-C Primary Care Provi mckenna Vinod Robles MD Unavailable [phone] Encounter Details Date Type Department Care Team (Late st Contact Info) Description 09/15/2024 Scanned Document [address] [place] [address] Otolaryngology, Scan Social History Tobacco Use Types [...] 8:45 AM EDT [facility] [address] [place] [address] Raphael Mcdaniel MD 31 [place] [address] 04/01/2025 9:45 AM EDT Office Visit [facility] Department of Cardiology [place] [address] [facility] [address] [place] [address] Antonio Puente MD 160 [facility] 100 [place] [address] 04/13/2025 8:30 AM EDT Office Visit [facility] 7 [facility] [address] [place] [address] Theodora Yap, NAIL CUTTER [address] [address] 05/20/2025 3:45 PM EDT Office Visit [facility] [address] [place] [address] Radah Martel PA-C 100 [place] [address] 07/22/2025 9:20 AM EDT Office Visit [facility] Department Of Hematology/Oncology [place] [address] [place] [address] Jhoana Wilkins MD 300 [facility] 4 [place] [address] documented as of this encounter Visit Diagnoses Not on filedocumented in this encounter Care Teams Human Resource Management Instructor Relationship Specialty Start Date End Date Radha Martel PA-C [address] [place] [address] PCP - General Internal Medicine 02/24/24 Vinod Robles MD [address] [place] [address] [place] [address] Primary Repairer Auto Clocks Cardiovascular Disease 09/02/24 documented as of this encounter
--- OUTSIDE RECORDS SUMMARY | 2025-02-09 14:50 | XMS_ITS | Encounter Summary ---
Author Organization [facility] Address [address] [place] [address] Care Team Providers Care Care Information Associate Name Role Phone Radha Martel Primary Care Provider [phone] Encounter Details Date Type Department Care Team (Late st Contact Info) Description 11/03/2020 myChart Message [facility] [address] [place], [place] [phone] Kalie Clark MD [address] [place], [place] [phone] Non-Urgent Medical Question Social History Tobacco Use [...] on filedocumented in this encounter Care Teams Care Information Associate Relationship Specialty Start Date End Date Radha Martel [address] [place] [address] PCP - General Internal Medicine 03/30/24 documented as of this encounter
--- OUTSIDE RECORDS SUMMARY | 2025-02-09 14:50 | XMS_ITS | Clinical Summary ---
Author Organization [facility] Address [address] [place] [address] Phone Care Team Providers Care Electrical Lineworker Name Role Phone Radha Martel Primary Care Provider [phone] Allergies Active Allergy Reactions Criticality Noted Date Comments Adhesive Tape-Silicones Rash Medium 07/26/2021 Amoxicillin Rash 02/02/2025 Clindamycin Anaphylaxis High 07/26/2021 Venlafaxine 06/01/2020 Other [...] mouth 2 (two) times a day. 10/10/19 Active QUEtiapine (SEROquel) 50 mg tablet Take [...] (BMI) of 37.0 to 37.9 in adult ([facility] V24, [facility] V28) 11/28/2023 Attention deficit disorder 04/15/2023 Bipolar 2 disorder, major de pressive episode ([facility] V24, [facility] V28) 04/15/2023 Cholecystitis 04/02/2023 Chronic pelvic pain in female 03/08/2023 Nondependent opioid abuse in remission ([facility] V24, [facility] V28) 03/08/2023 Overview (11/28/2023): 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 She would like referral to the endometriosis [...] and perhaps medication started at that time Encounters Date Type Department Care Team Description 02/02/2025 12:47 PM EDT - 02/02/2025 2:49 PM EDT Emergency [facility] Emergency [address] [place] [phone] Contusion of right knee, initial encounter (Primary Dx) Discharge Disposition: Home or Self Care from Last 3 Months Immunizations Name Administration [...] PROCEDURE: SECTION TONSILLECTOMY PROCEDURE:TONSILLECTOMY CHOLECYSTECTOMY 04/02/2023 N/A PROCEDURE:CHOLECYSTECTOMY;COMMENT:Kerline mederosre: LAPAROSCOPY CHOLECYSTECTOMY; Surgeon: Jhonny Canada MD; Location: [facility] MAIN OPERATING ROOM; Service: General; Laterality: N/A; Medical History Medical History Date Comments Fibromyalgia DX:Fibromyalgia Anxiety DX:Anxiety Depression DX:Depression Fatigue due to excessive exertion DX:Fatigue due to excessive exertion Bipolar 2 disorder, major de pressive episode (CMS/HCC V24, CMS/HCC V28) DX:Bipolar 2 disord er, major depressive episode (HCC) Adhd DX:ADHD Endometriosis [...] Sign Reading Time Taken Comments Blood Pressure 108/63 02/02/2025 12:07 PM EDT Pulse 100 02/02/2025 12:07 PM EDT Temperature 36.6 ??C (97.9 ??F) 02/02/2025 12:07 PM E DT Respiratory Rate 16 02/02/2025 12:40 PM EDT Oxygen Saturation 100% 02/02/2025 12:07 PM EDT Inhaled Oxygen Concentration - - Weight 83.9 kg (185 lb) 02/02/2025 12:07 PM EDT Height 142.2 cm (4' 8 ) 02/02/2025 12:07 PM EDT Body Mass Index 41.48 02/02/2025 12:07 PM EDT Plan of Treatment Health Maintenance Due Date Last Done Comments COVID-19 Vaccine (#1) 01/10/1997 Hepatitis A Vaccines (1 of 2 - [...] Screening: P ap Smear 01/10/2024 01/09/2021, 01/20/2018 Influenza Vaccine (Season Ended) 2025 08/06/2019, 07/14/2012 [...] age to complete this topic Meningococcal B Vaccine Aged Out No l onger eligible based on patient's age to complete this topic RSV Immunization Patients Under 20 months Aged Out No longer eligible b ased on patient's age to complete this topic Varicella Vaccines Aged Out No longer eligible based on patient's age to complete this topic Procedures Procedure Name Priority Date/Time Associated Diagnosis Comments XR KNEE 4+ VIEWS RIGHT STAT 02/02/2025 12:20 PM EDT LIPID PANEL Routine 03/15/2023 PAP SMEAR Routine 01/09/2021 from Last 3 Months or Most Recently Relevant to Health Maintenance Results * XR Knee 4+ Views Right (02/02/2025 12:20 PM EDT) Anatomical Region Laterality Modality Lower Extremities, Knee Right Radiogra phic Imaging 02/02/2025 12:2 2 PM EDT Impressions 02/02/2025 12:23 PM EDT FINDINGS/IMPRESSION: No acute fracture. ??Normal alignment. -------- FINAL REPORT -------- Dictated By: Anna Adair Dictated Date: 02/02/2025 12:22 ET Assigned Physician: Anna Adair Reviewed and Electronically Signed By: Anna Adair Signed Date: 02/02/2025 12:23 ET Workstation ID: [id number] Transcribed By: Self Edit Transcribed Date: 02/02/2025 12:22 ET Narrative 02/02/2025 12:23 PM EDT XR KNEE 4+ VIEWS RIGHT INDICATION: pain TECHNIQUE: XR KNEE 4+ VIEWS RIGHT COMPARISON: No priors available. Procedure Note Anna Adair MD - 02/02/2025 XR KNEE 4+ VIEWS RIGHT INDICATION: pain TECHNIQUE: XR KNEE 4+ VIEWS RIGHT COMPARISON: No priors available. IMPRESSION: FINDINGS/IMPRESSION: No acute fracture. Normal alignment. -------- FINAL REPORT -------- Dictated By: Anna Adair Dictated Date: 02/02/2025 12:22 ET Assigned Physician: Anna Adair Reviewed and Electronically Signed By: Anna Adair Signed Date: 02/02/2025 12:23 ET Workstation ID: [id number] Transcribed By: Self Edit Transcribed Date: 02/02/2025 12:22 ET Ernesto Haines DO IMG XR PROCEDURES Final Res ult * Lipid panel (03/15/2023) LDL/HDL Ratio 2 <=5 Triglycerides 55 <=150 mg/dL Cholesterol 112 <=200 mg/dL HDL 56 >=50 mg/dL LDL Cholesterol 42 <=100 mg/dL Blood Venous blood specimen / Unknown Historical Provider LAB BLOOD ORDERABLES Antonia l Result * Pap smear (01/09/2021) 01/09/2021 Narrative HISTORICAL TESTING LAB RESULTING AGENCY - 2021 11:45 AM EDT [id number] THINPREP PAP, IMAGED: NEGATIVE FOR SQUAMOUS INTRAEPITHELIAL LESION AND MALIGNANCY . BRONWYN LAN , JERICA(ASCP) (CASE ELECTRONICALLY SIGNED 01 11 2021) ADEQUACY: SATISFACTORY ENDOCERVICAL/TRANSFORMATION ZONE COMPONENT PRESENT. SOURCE: THINPREP PAP HPV IF ASCUS, CERVICAL, IMAGED CLINICAL INFORMATION: HPV IF DIAGNOSIS OF ASCUS. PAP HX NEG, Z12.4 Luz Maria Borja [facility] LAB CYTOLOGY ORDERABLES Fin al Result HISTORICAL TESTING LAB RESULTING AGENCY from Last 3 Months or Most Recently Relevant to Health Maintenance Insurance [facility] Care Teams Electrical Lineworker Relationship Specialty Start Date End Date Radha Martel PA [address] [facility] [address] [place] [address] PCP - General 02/24/24
--- OUTSIDE RECORDS SUMMARY | 2025-02-09 14:50 | XMS_ITS | Encounter Summary ---
Author Organization [facility] Address [address] [place] [address] Care Team Providers Care Process Laboratory Specialist Name Role Phone Radha Martel PA-C Primary Care Provi mckenna Vinod Robles MD Unavailable [phone] Encounter Details Date Type Department Care Team (Late st Contact Info) Description 10/29/2024 Scanned Document [facility] 80 [facility] [address] [place] [phone] Provider, Generic Social History Tobacco Use [...] AM EDT Office Visit [facility] [place] [address] Raphael Mcdanile MD 31 [place] [address] 04/01/2025 9:45 AM EDT Office Visit [facility] Department of Cardiology [place] [address] [place] [address] Antonio Puente MD 160 [facility] [address] [place] [address] 04/13/2025 8:30 AM EDT [facility] [address] [place] [address] Theodora Yap, REVERBERATORY FURNACE SUPERVISOR 31 [facility] 100 [place], [place] [address] 05/20/2025 3:45 PM EDT Office Visit [facility] 100 [facility] [address] [place] [address] Radha Martel PA-C 100 [place] [address] 07/22/2025 9:20 AM EDT Office Visit [facility] Department Of Hematology/Oncology [place] [address] [place] [address] Conner Gomez 107 [place] [address] Jhoana Wilkins MD 300 [facility] [address] [place] [address] documented as of this encounter Visit Diagnoses Not on filedocumented in this encounter Care Teams Process Laboratory Specialist Relationship Specialty Start Date End Date Radha Martel PA-C 100 [place] [address] PCP - General Internal Medicine 02/24/24 Vinod Robles MD [address] [place] [address] Primary Miter Operator Cardiovascular Disease 09/02/24 documented as of this encounter
--- OUTSIDE RECORDS SUMMARY | 2025-02-09 14:50 | XMS_ITS | Data Portability ---
Author Organization [facility], [facility], Patient Home Address [address] [place] [address] Care Team Providers Care Activity Specialist Name Role Phone NIKITA AZAR Primary Care Provider [phone] NIKITA AZAR Referring Provider [phone] Assessment No assessment recorded. Plan of Treatment Reminders Order Date Submit Date Provider Last Modified By Organization Details Last Modified Time Details Appointments None recorde d. Lab drug screen, urine 020 02/11/20 20 dmousad Main Office, [address] [place] [address], [phone], 0 18:38:20 Referral None recorde d. Procedures None recorde d. Surgeries None recorde d. Imaging None recorde d. Medication Orders None recorde d. Patient Targets Encounter Date Encounter Id Patient Goals Patient Target Last Modified By Organization Details Last Modified Time 02/11/2020 [id number] longterm goal o f Pain Scale Not available Not available Not available intermediate teacher goal o f Weight Not available Not [...] : negati ve Not Available Main Office [address] [place] [address], [address], 02/11/2020 13:48:41 02/11/20 20 02/11/2020 drug scree n, urine Cannabinoids :THC negati ve Not Available Main Office [address] [place] [address], [place], [address], 02/11/2020 13:48:41 02/11/20 20 02/11/2020 drug scree n, urine Cocaine: negati ve Not Available Main Office [address] [place] [address], [place], [address], 02/11/2020 13:48:41 02/11/20 20 02/11/2020 drug scree n, urine Methadone: negati ve Not Available Main Office [address] [place] [address], [place], [address], 02/11/2020 13:48:41 02/11/20 20 02/11/2020 drug scree n, urine Opiates: negati ve Not Available Main Office [address] [place] [address], [place], [address], 02/11/2020 13:48:41 02/11/20 20 02/11/2020 drug scree n, urine Oxycodone: negati ve Not Available Main Office [address] [place] [address], [place], [address], 02/11/2020 13:48:41 02/11/20 20 02/11/2020 drug scree n, urine Phenocyclidi ne: negati ve Not Available Main Office [address] [place] [address], [place], [address], 02/11/2020 13:48:41 02/11/20 20 02/11/2020 drug scree n, urine Barbiturates : negati ve Not Available Main Office [address] [place] [address], [place], [address], 02/11/2020 13:48:41 02/11/20 20 02/11/2020 drug scree n, urine Benzodiazepi jacqueline: positi ve Not Available Main Office [address] [address], [place], [address], 02/11/2020 13:48:41 02/11/20 20 02/11/2020 drug scree n, urine Buprenorphin e negati ve Not Available Main Office [address] [address], [place], [address], 02/11/2020 13:48:41 02/11/20 20 02/11/2020 drug scree n, urine Methamphetam ine negati ve Not Available Main Office [address] [address], [place], [address], 02/11/2020 13:48:41 02/11/20 20 02/11/2020 drug scree n, urine MDMA negati ve Not Available Main Office [address] [place] [address], [place], [address], 02/11/2020 13:48:41 02/24/20 20 MRI, lumba r spine , w/o contr ast No observ ation record ed. [email or web address] Not Available 14:53:31 Result Notes None recorded. Problems Name Problem SNOMED Code Status Onset Date Resolution Date Notes Provider Name and Address Organization Details Recorded Time Fibromyalgia 475215110 Active 2019 Esa Alas MD [address] [place] [address], [place], [address], [facility], [facility] 0 14:27:21 Depressive disorder 48919992 Active 2019 Esa Alas MD [address] [place] [address], [place], [address], [facility], [facility] 0 14:27:53 Anxiety 82185977 Active 2019 Esa Alas MD [address] [place] [address], [address], [facility], [facility] 0 14:28:05 Asthma 365186061 Active 2019 Esa Alas MD [address] [place] [address], [address] [place] [address] 4, [facility], [facility] 0 14:28:42 Problem Notes None recorded. Procedures Surgical History None recorded. Imaging Results Imaging Date Name Status LastModified by Organiz ation Details LastModified Time 02/24/2020 MRI, lumbar spine, w/o contrast [facility] Information not available 05/06/2023 14:53:31 Procedure Notes None recorded. Medical Equipment None Reported. Allergies Allergen ID Allergen Name Allergen Category Reaction Reaction Severity Criticality Documentation Date Start Date Code Code System Note Provider Name and Address Organization Details Recorded Time 1541 clindamyc in Not available Not available Not available Not available 02/11/2020 2582 RxNorm Esa Alas MD [address] [place] [address], [address] [place] [address] 4, [facility], [facility] 0 14:27:01 1542 adhesive tape environme nt,medica tion Not available Not available Not available 02/11/2020 29451 UNK Esa Alas MD [address] [place] [address], [address] [place] [address] 4, [facility], [facility] 0 14:27:10 Medications Name Sig Start [...] Note 4598 Esa Alas MD Main Office [address] [place] [address] 34 [place] [address] 02/11/2020 13:08:23 02/11/2020 16:54:21 Long-term current use of opiate analgesic drug 4409511203 13120 Z79.891 Lumbosacra l spondylosis without myelopathy 77129952 M47.817 L>R. weight reduction. HEP. RFR if the pain persist. Degenerati on of lumbar intervertebral disc 34645070 M51.36 weight reduction aquatic [place] Low back pain 491334547 M54.5 HEP Aqu[employer] [place] Health Concerns Section Related Observation LastModified by Organization Detai ls LastModified Time None Recorded Concern Status LastModified by Organization Details LastModified Time None Recorded Advance Directives Directive None Recorded Payers Encounter Date Sequence Insurance Name Policy Number Policy Adames Covered Member ID Adames Member ID Guarantor Name 02/11/2020 1 [facility] (O) [id number] Deyanira Poor [id number] Deyanira Poor Notes Date Note Type [...] was +ve for Benzo. Esa Alas MD [address] [place] [address],[address], [place], [address], [facility], [facility] 02/13/2020 18:38:24 OBGyn Episode No OBEpisode recorded.
== END 2025-02-09 14:15 | disposition home or self-care (01) ==
LOC: HO.HSMS 13:30
PROVIDERS: PCP Nurse Practitioner; Visit Provider Psychiatry & Neurology Neurology
DX: G43.719 Chronic migraine without aura, intractable, without status migrainosus (principal)
CPT/HCPCS: 64615

== ENCOUNTER → 2025-02-09 13:30 | Outpatient (BNVA) | payer BC, SELFPAY | PROVIDERS: PCP Nurse Practitioner; Visit Provider Psychiatry & Neurology Neurology | DX: G43.719 Chronic migraine without aura, intractable, without status migrainosus (principal) | CPT/HCPCS: 64615; 99211; J0585 ==

== ENCOUNTER → 2025-02-12 08:38 | Outpatient (BNVA) | payer BC, SELFPAY | PROVIDERS: Visit Provider Psychiatry & Neurology Neurology | DX: Z13.89 Encounter for screening for other disorder (principal) ==

== ENCOUNTER 2025-02-16 12:48 | Outpatient (AMB) | payer BC, SELFPAY ==
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
--- OUTSIDE RECORDS SUMMARY | 2025-02-16 13:49 | XMS_ITS | Clinical Summary ---
Author Organization [facility] Address [address] [place] [address] Care Team Providers Care Contractor Buyer Name Role Phone Martha Grey PANFILO Primary [...] BY OUR OFFICE. 0 02/25/2024 Active Creon 38996-076015 units CAPSULE ENTERIC COATED PARTICLES 0 03/27/2024 Active fluticasone (VERAMYST) 27.5 MCG/SPRAY nasal spray 2 Sprays by Nasal route daily. 0 Active Cholecalciferol (Vitamin D3) 1.25 MG (68795 UT) CapIndications: Bariatric surgery status Take 1 [...] opinion from another surgeon versus referral to [facility] Endometriosis clinic in [place]. She would like referral to the endometriosis [...] or Baby Condition warrants. Can deliver at [facility] Name change (got ): was Deyanira Terry 2. 12/03/11 to disclose information for the purpose of coordination of care (february release info re: physical examinations) to [facility], BAIRON Summers MA and Asha Branch [facility] Ph#[phone] ([address], [facility] [address]). Pt left [facility] 12/11/11, signed self out. Currently homeless per pt's mother. Living in [facility] ( Boarding house) Has apartment ( per patient ) 04/17 Will be moving back to home with parents 04/24 3. FOB Is in rehab for substance use HAS restraining order against for abuse 04/17/2012 4. Multiple ER visits for hyperemesis (has not used any anti-emetics since 12/11/11) - last seen [facility] ER 12/17/11 - received [...] At risk for pp depression (consult at [facility] after delivery please) 9. 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 Patch in labor and post S/P repair of PDA (patent ductus arteriosus) 07/28/2012 Overview: Needs cardiac consult in echo WNL at [facility]. Immunizations Name Administration Dates [...] SCREENING 01/10/20242020, 01/20/2018, 01/07/2017, Additional history exists BMI CHECK/ADVISE 10/07/2024 03/31/2024, , 11/22/2022, Additional history exists DEPRESSION SCREENING/FOLLOWUP 10/07/2024, 05/17/2020, 05/17/2020, Additional history exists SOCIAL NEEDS SCREENING 10/07/2024 BASELINE HEALTH EXAM 18-39 06/02/202506/02 (Completed), 06/02/2020, 02/17/2014 INFLUENZA (Season Ended) 2025 08/06/2019, 10/0 05/2012 CHOLESTEROL SCREENING 03/31/2029 03/31/2024 , 12/14/2019, 11/06/2019, Additional history exists DTAP/TDAP/TD (4 - Td or Tdap) 03/22/2033, 07/14/2012, 09/19/2011 PNEUMOCOCCAL VACCINE FOR HIG H RISK PATIENTS (#2) 01/10/2057 06/02/2020 (Completed), 06/02/2020 Care Teams Contractor Buyer Relationship Specialty Start Date End Date Martha Grey APRN PCP - General Internal Medicine 11/21/22
--- OUTSIDE RECORDS SUMMARY | 2025-02-16 13:50 | XMS_ITS | Encounter Summary ---
Author Organization [facility] Address [address] [place] [address] Care Team Providers Care Co Supervisor Grounds And Landscape Name Role Phone Martha Grey APRN Primary Care Provider Unav ailable Encounter Details Date Type Department Care Team Description 01/30/2023 Solar Technician Report Medical Records [address] [place] [address] Bryn Toscano MD Social History Tobacco Use Types Packs/Day [...] on filedocumented in this encounter Care Teams Co Supervisor Grounds And Landscape Relationship Specialty Start Date End Date Martha Grey APRN PCP - General Internal Medicine 11/21/22 documented as of this encounter
--- OUTSIDE RECORDS SUMMARY | 2025-02-16 13:50 | XMS_ITS | Encounter Summary ---
Author Organization [facility] Address [address] [place] [address] Care Team Providers Care Continuous Wave Operator Name Role Phone Radha Martel PA-C Primary Care Provi mckenna Vinod Robles MD Unavailable [phone] Encounter Details Date Type Department Care Team (Late st Contact Info) Description 05/04/2024 Scanned Document [facility] [address] [place] [phone] Radha Martel PA-C [address] [place] [address] Social History Tobacco Use Types Packs/Day Years [...] Care Team (Late st Contact Info) Description 04/01/2025 9:45 AM EDT Office Visit [facility] Department of Cardiology [place] [address] [place] [phone] Antonio Puente MD [address] [place] [address] 04/13/2025 8:30 AM EDT [facility] [address] [address] Theodora Yap APRN [address] [address] 05/20/2025 3:45 PM EDT Office Visit [facility] 100 [facility] [address] [place] [address] Radha Martel PA-C [address] [place] [address] 05/27/2025 8:00 AM EDT [facility] Visit [facility] [address] [address] Raphael Mcdaniel MD [address] [place] [address] 07/22/2025 9:20 AM EDT Office Visit [facility] Department Of Hematology/Oncology [place] [address] Mendel Gomez [address] [place] [phone] Jhoana Wilikns MD 300 [facility] [address] [place], [place] [phone] documented as of this encounter Visit Diagnoses Not on filedocumented in this encounter Care Teams Continuous Wave Operator Relationship Specialty Start Date End Date Radha Martel PA-C [address] [place] [address] PCP - General Internal Medicine 02/24/24 Vinod Robles MD [address] [place] [address] Primary [place] Stayer Machine Operator Cardiovascular Disease 09/02/24 documented as of this encounter
--- OUTSIDE RECORDS SUMMARY | 2025-02-16 13:50 | XMS_ITS | Encounter Summary ---
Author Organization [facility] Address [address] [place] [address] Care Team Providers Care Emt Paramedic Name Role Phone Siddhartha Oakes MD Primary Care Provider [phone] Martha Grey APRN Primary Care Provider Unav ailable Martha Grey APRN Primary Care Provider Unav ailable Mike Burns NP Primary Care Provider Unavail able Martha Grey APRN Primary Care Provider Unav ailable Reason for Visit * Reason Onset Date Comments Medication 05/12/2019 prep Encounter Details Date Type Department Care Team Description 05/12/2019 Refill Gastroenterology - [address] [phone] Reji Ortega MD Medication (prep) Social History [...] on filedocumented in this encounter Care Teams Emt Paramedic Relationship Specialty Start Date End Date Siddhartha Oakes MD [address] [place] [address] PCP - General Internal Medicine 05/06/19 01/12/20 Martha Grey APRN [address] [place] [address] PCP - General Internal Medicine 01/13/20 01/19/20 Martha Grey APRN [address] [place] [address] PCP - General Internal Medicine 01/20/20 05/16/22 Mike Burns NP [address] [place] [address] PCP - General Family Practice 05/17/22 11/20/22 Martha Grey APRN [address] [place] [address] PCP - General Internal Medicine 11/21/22 documented as of this encounter
--- OUTSIDE RECORDS SUMMARY | 2025-02-16 13:50 | XMS_ITS | Encounter Summary ---
Author Organization [facility] Address [address] [place] [address] Care Team Providers Care Small Package And Bundle Sorter Clerk Name Role Phone Siddhartha Oakes MD Primary Care Provider [phone] Martha Grey APRN Primary Care Provider Unav ailable Martha Grey APRN Primary Care Provider Unav ailable Mike Burns NP Primary Care Provider Unavail able Martha Grey APRN Primary Care Provider Unav ailable Reason for Visit * Reason Onset Date Comments Provider Call Back 05/22/2019 Encounter Details Date Type Department Care Team Description 05/22/2019 Telephone Adult Medicine [address] [address] Siddhartha Oakes MD [address] [place] [address] Provider Call Back Social History Tobacco Use [...] on filedocumented in this encounter Care Teams Small Package And Bundle Sorter Clerk Relationship Specialty Start Date End Date Siddhartha Oakes MD [address] [place] [address] PCP - General Internal Medicine 05/06/19 01/12/20 Martha Grey APRN [address] [place] [address] PCP - General Internal Medicine 01/13/20 01/19/20 Martha Grey APRN [address] [place] [address] PCP - General Internal Medicine 01/20/20 05/16/22 Mike Burns NP [address] [place] [address] PCP - General Family Practice 05/17/22 11/20/22 Martha Grey APRN [address] [place] [address] PCP - General Internal Medicine 11/21/22 documented as of this encounter
--- OUTSIDE RECORDS SUMMARY | 2025-02-16 13:50 | XMS_ITS | Encounter Summary ---
Author Organization [facility] Address [address] [place] [address] Care Team Providers Care Patient Case Coordinator Name Role Phone Siddhartha Oakes MD Primary Care Provider [phone] Martha Grey APRN Primary Care Provider Unav ailable Martha Grey APRN Primary Care Provider Unav ailable Mike Burns NP Primary Care Provider Unavail able Martha Grey APRN Primary Care Provider Unav ailable Encounter Details Date Type Department Care Team Description 09/14/2019 Orders Only Adult Medicine [address] [address] Ingrid Price APRN [address] [place] [address] Pneumonia due to infectious organism, unspecified laterality, unspecified part of lung (Primary Dx) Social History Tobacco Use Types [...] documented as of this encounter Results * RADIOLOGIC EXAM CHEST 2 VIEWS (10/16/2019 3:11 PM EST) 10/16/2019 3:39 PM EST Impressions [facility]AL[facility] OTHER EXTERNAL - 10/16/2019 3:47 PM EST IMPRESSION: Normal chest series. Narrative [facility]ISA FITZGERALD OTHER EXTERNAL - 10/16/2019 3:47 PM EST PA and lateral chest: HISTORY: Follow-up right upper lobe opacity noted on 09/14/2019. COMPARISON: 05/26/2014, 09/14/2019 Both lungs are clear. ??The heart and mediastinal contours appear normal. ??No pleural effusion or focal bone pathology. ??Question patchy opacity right upper lobe on prior study is no longer apparent. Procedure Note Mario Babb MD - 10/17/2019 PA and lateral chest: HISTORY: Follow-up right upper lobe opacity noted on 09/14/2019. COMPARISON: 05/26/2014, 09/14/2019 Both lungs are clear. The heart and mediastinal contours appear normal.No pleural effusion or focal bone pathology. Question patchy opacity right upper lobe onprior study is no longer apparent. IMPRESSION IMPRESSION: Normal chest series. Ingrid Price APRN RADIOLOGY [facility] EXTERNAL documented in this encounter Visit Diagnoses Diagnosis Pneumonia due to infectious organism, unspecified laterality, unspecified part of lung- Primary Pneumonia due to infectious organism, unspecified laterality, unspecified part of lung documented in this encounter Care Teams Patient Case Coordinator Relationship Specialty Start Date End Date Siddhartha Oakes MD [address] [place] [address] PCP - General Internal Medicine 05/06/19 01/12/20 Martha Grey APRN [address] [place] [address] PCP - General Internal Medicine 01/13/20 01/19/20 Martha Grey APRN [address] [place] [address] PCP - General Internal Medicine 01/20/20 05/16/22 Mike Burns NP [address] [place] [address] PCP - General Family Practice 05/17/22 11/20/22 Martha Grey APRN [address] [place] [address] PCP - General Internal Medicine 11/21/22 documented as of this encounter
--- OUTSIDE RECORDS SUMMARY | 2025-02-16 13:50 | XMS_ITS | Encounter Summary ---
Author Organization [facility] Address [address] [place] [address] Care Team Providers Care Metal Dealer Name Role Phone Martha Grey APRN Primary Care Provider Unav ailable Encounter Details Date Type Department Care Team Description 01/10/2023 Refill Bariatric Surgery - [place] 175 [facility] [address] [place] [address] Maria Elena Medina PA-C 271 [facility] [address] [place] [address] Social History Tobacco Use Types [...] filedocumented in this encounter Care Teams Metal Dealer Relationship Specialty Start Date End Date Martha Grey APRN PCP - General Internal Medicine 11/21/22 documented as of this encounter
--- OUTSIDE RECORDS SUMMARY | 2025-02-16 13:50 | XMS_ITS | Encounter Summary ---
Author Organization [facility] Address [address] [place] [address] Care Team Providers Care Generating Station Mechanic Name Role Phone Martha Grey PANFILO Primary Care Provider Unav ailable Reason for Visit * Reason Comments E-prescribe Rx Request Encounter Details Date Type Department Care Team Description 12/19/2022 Refill Bariatric Surgery [facility] 175 [facility] [address] [place] [address] Maria Elena Medina PA-C [address] [facility] [address] [place] [address] E-prescribe Rx Request Social History [...] on filedocumented in this encounter Care Teams Generating Station Mechanic Relationship Specialty Start Date End Date Martha Grey APRN PCP - General Internal Medicine 11/21/22 documented as of this encounter
--- OUTSIDE RECORDS SUMMARY | 2025-02-16 13:50 | XMS_ITS | Encounter Summary ---
Author Organization [facility] Address [address] [place] [address] Care Team Providers Care Veterans Contact Representative Name Role Phone Siddhartha Oakes MD Primary Care Provider [phone] Emerald Yu MD Primary Care Provider Unavailable [facility] Emerald Yu MD Primary Care Provider Unavailable Krakoopal Colasacco, Susannah DO Primary Care Pro vider Unavailable Emerald Yu MD Primary Care Provider Unavailable Krakowiarmen Colasacco, Susannah DO Primary Care Pro vider Unavailable Siddhartha Oakes MD Primary Care Provider [phone] Martha Grey APRN Primary Care Provider Unav ailable Martha Grey APRN Primary Care Provider Unav ailable Mike Burns NP Primary Care Provider Unavail able Martha Grey APRN Primary Care Provider Unav ailable Encounter Details Date Type Department Care Team Description 06/12/2012 Hospital Medical Records [address] [place] [address] Paul Sauceda MD Social History Tobacco Use Types Packs/Day [...] on filedocumented in this encounter Care Teams Veterans Contact Representative Relationship Specialty Start Date End Date Siddhartha Oakes MD [address] [place] [address] PCP - General Internal Medicine 03/05/12 07/13/12 Emerald Yu MD [address] [place] [address] PCP - General Internal Medicine 07/14/12 10/13/[address] [address] PCP - General Internal Medicine 10/14/13 12/17/13 Emerald Yu MD [address] [place] [address] PCP - General Internal Medicine 12/18/13 02/13/15 Susannah Rendon, [address] [place] [address] PCP - General Internal Medicine 02/14/15 05/09/15 Emerald Yu MD [address] [place] [address] PCP - General Internal Medicine 05/10/15 06/30/15 Susannah Rendon, [address] [place] [address] PCP - General Internal Medicine 07/01/15 05/05/19 Siddhartha Oakes MD [address] [place] [address] PCP - General Internal Medicine 05/06/19 01/12/20 Martha Grey APRN [address] [place] [address] PCP - General Internal Medicine 01/13/20 01/19/20 Martha Grey APRN [address] [place] [address] PCP - General Internal Medicine 01/20/20 05/16/22 Mike Burns NP [address] [place] [address] PCP - General Family Practice 05/17/22 11/20/22 Martha Grey APRN [address] [place] [address] PCP - General Internal Medicine 11/21/22 documented as of this encounter
--- OUTSIDE RECORDS SUMMARY | 2025-02-16 13:50 | XMS_ITS | Encounter Summary ---
Author Organization [facility] Address [address] [place] [address] Care Team Providers Care Top Distribution Executive Name Role Phone Siddhartha Oakes MD Primary Care Provider [phone] Martha Grey APRN Primary Care Provider Unav ailable Martha Grey APRN Primary Care Provider Unav ailable Mike Burns NP Primary Care Provider Unavail able Martha Grey APRN Primary Care Provider Unav ailable Encounter Details Date Type Department Care Team Description 07/10/2019 Old Medical Records Medical Records [address] [place] [id number] Abstract, Provider Social History Tobacco Use Types [...] on filedocumented in this encounter Care Teams Top Distribution Executive Relationship Specialty Start Date End Date Siddhartha Oakes MD [address] [place] [address] PCP - General Internal Medicine 05/06/19 01/12/20 Martha Grey APRN [address] [place] [address] PCP - General Internal Medicine 01/13/20 01/19/20 Martha Grey, PANFILO [address] [place] [address] PCP - General Internal Medicine 01/20/20 05/16/22 Mike Burns NP [address] [place] [address] PCP - General Family Practice 05/17/22 11/20/22 Martha Grey APRN [address] [place] [address] PCP - General Internal Medicine 11/21/22 documented as of this encounter
--- OUTSIDE RECORDS SUMMARY | 2025-02-16 13:50 | XMS_ITS | Data Portability ---
Author Organization [place] [facility] Cedric Solorzano [facility] [place] Address [address] [place] [address] Care Team Providers Care Sign Builder Supervisor Name Role Phone DEBORAH WATTS Primary Care Provider [phone] Assessment Encounter Date Assessment Date Assessment LastModified [...] progress with therapy, sooner for any complications. [email or web address] Not available 04/20/2023 15:01:29 Plan of Treatment [...] Increase Endurance. 2022 023 [email or web address] Not available 3 10:00:21 Procedures None recorded. Surgeries None recorded. Imaging XR, shoulder, 2 or more view 2022 023 [email or web address] [facility], [address], [place], [address], 11:19:47 Medication Orders Lodine 400 mg tablet 2022 023 [id number], [address] [facility], [place], [address], 09:13:20 Patient TargetsNo targets recorded. Patient Instructions Encounter Date Encounter Id Patient Instructions Last Modified By Organization Details Last Modified Time 04/17/2023 [id number] Views of the {{Right Left* Bila teral}} shoulder were obtained in the {{[place]* Phi} } office including AP, Grashey and outlet views. Good bone mineralization. No significant degenerative changes in the AC joint with no widening. Well maintained Glenohumoral joint space. No abnormal calcifications in the lateral shoulder. No evidence of acute injury or fracture. Interpretation by: Jayce García PA-C [email or web address] Not available 04/17/2023 09:14:44 Reason for Referral [...] Details Recorded Time Subluxation of shoulder joint 294127839 Active 2022 JAYCE GARCÍA PA-C [address], [place], [address] , [place] [facility] 09:11:52 Problem Notes None recorded. Procedures Surgical History Date Name Laterality Status Provider Name and Address Organization Details Recorded Time Gallbladder Surgery completed Kisha Howard [place] [facility] 04/17/2023 09:04:13 delivery completed Kisha Howard [place] [facility] 04/17/2023 09:04:29 Tonsillectomy/A denoidectomy completed Kisha Howard [facility] 04/17/2023 09:04:45 operation on heart completed Kisha Howard [facility] 04/17/2023 09:04:54 Imaging Results None recorded. Procedure Notes None recorded. Medical Equipment None Reported. Allergies Allergen ID Allergen Name Allergen Category Reaction Reaction Severity Criticality Documentation Date Start Date Code Code System Note Provider Name and Address Organization Details Recorded Time 6107 clindamyc in Not available Not available Not available Not available 04/17/2023 2582 RxNorm Kisha Howard [place], [place] - [facility] 09:00:19 Medications Name Sig Start Date [...] Updated DateTime 04/17/2023 142.24 cm 37 kg/m2 70307.[address] [facility], 04/17/2023 09:02:48 Social History None recorded. Functional Status Question Answer Note LastModified by Organizat ion Details LastModified Time Do you use any illicit or recreational drugs? No [email or web address] Information not available 04/17/2023 Do you or have you ever used any other forms of tobacco or nicotine? No [email or web address] Information not available 04/17/2023 What is your level of alcohol consumption? None [email or web address] Information not available 04/17/2023 Mental Status None recorded. Family History Nothing Reported. Medical History Condition Response Asthma Y Gynecological HistoryNo gynecological history recorded. Obstetrics History GPAL:G 0 P 0 0 0 0 Past Encounters Encounter ID Performer Location Encounter Start Date Encounter Closed Date Diagnosis/Indication Diagnosis SNOMED-CT Code Diagnosis ICD10 Code Diagnosis Note [id number] JAYCE GARCÍA PA-C [facility] [address] [facility] [address] 04/17/2023 08:41:33 04/17/2023 11:19:47 Pain of left shoulder joint 1772400689 4361004 M25.512 Subluxatio n of shoulder joint 326708268 S43.022A Health Concerns Section Related Observation LastModified by Organization Detai ls LastModified Time None Recorded Concern Status LastModified by Organization Details LastModified Time None Recorded Advance Directives Directive None Recorded Payers Encounter Date Sequence Insurance Name Policy Number Policy Adames Covered Member ID Adames Member ID Guarantor Name 04/17/2023 1 [place] [facility] [id number] 2 Osiel Araceli [id number] Deyanira Charles Notes Date Note Type Note [...] tingling. No prior injury or trauma. JAYCE GRACÍA PA-C [address], [place], [address], [place] [facility] 04/20/2023 15:01:37 OBGyn Episode No OBEpisode recorded.
--- OUTSIDE RECORDS SUMMARY | 2025-02-16 13:50 | XMS_ITS | Encounter Summary ---
Author Organization [facility] Address [address] [place] [address] Care Team Providers Care Melter Operator Name Role Phone Susannah Rendon DO Primary Care Pro vider Unavailable Siddhartha Oakes MD Primary Care Provider [phone] Martha Grey APRN Primary Care Provider Unav ailable Martha Grey APRN Primary Care Provider Unav ailable Mike Burns NP Primary Care Provider Unavail able Martha Grey APRN Primary Care Provider Unav ailable Encounter Details Date Type Department Care Team Description 03/04/2019 Refill Adult Medicine [address] [address] Reina Leung PA-C [address] [place] [address] [phone] Social History Tobacco Use Types Packs/Day Years [...] on filedocumented in this encounter Care Teams Melter Operator Relationship Specialty Start Date End Date Susannah Rendon DO PCP - General Internal Medicine 07/01/15 05/05/19 Siddhartha Oakes MD [address] [place] [address] PCP - General Internal Medicine 05/06/19 01/12/20 Martha Grey APRN [address] [place] [address] PCP - General Internal Medicine 01/13/20 01/19/20 Martha Grey APRN [address] [place] [address] PCP - General Internal Medicine 01/20/20 05/16/22 Mike Burns NP [address] [place] [address] PCP - General Family Practice 05/17/22 11/20/22 Martha Grey APRN [address] [place] [address] PCP - General Internal Medicine 11/21/22 documented as of this encounter
--- OUTSIDE RECORDS SUMMARY | 2025-02-16 13:50 | XMS_ITS | Encounter Summary ---
Author Organization [facility] Address [address] [id number] Care Team Providers Care Social Media Content Manager Name Role Phone Radha Martel PA-C Primary Care Provi mckenna Vinod Robles MD Unavailable [phone] Encounter Details Date Type Department Care Team (Late st Contact Info) Description 01/27/2025 Scanned Document [facility] [address] [place] [address] Raphael Mcdaniel MD [address] [place] [address] Social History Tobacco Use Types Packs/Day Years [...] Description 04/01/2025 9:45 AM EDT Office Visit [facility] Department of Cardiology [place] [address] [place] [address] Antonio Puente MD 160 [facility] 100 [place] [address] 04/13/2025 8:30 AM EDT [facility] [address] [place] [address] Theodora Yap APRN [address] [address] 05/20/2025 3:45 PM EDT Office Visit [facility] [address] [facility] 101 [place] [address] Radha Martel PA-C [address] [place] [address] 05/27/2025 8:00 AM EDT [facility] [address] [address] Raphael Mcdaniel MD [address] [place] [address] 07/22/2025 9:20 AM EDT Office Visit [facility] Department Of Hematology/Oncology [place] [address] [place] [phone] Jhoana Wilkins MD [address] [facility] [address] [place] [address] documented as of this encounter Visit Diagnoses Not on filedocumented in this encounter Care Teams Social Media Content Manager Relationship Specialty Start Date End Date Radha Martel PA-C [address] [place] [address] PCP - General Internal Medicine 02/24/24 Vinod Robles MD [address] [place] [address] Primary Parliamentary Counsel Cardiovascular Disease 09/02/24 documented as of this encounter
--- OUTSIDE RECORDS SUMMARY | 2025-02-16 13:50 | XMS_ITS | Encounter Summary ---
Author Organization [facility] Address [address] [place] [address] Care Team Providers Care Hydrologist Name Role Phone Martha Grey APRN Primary Care Provider Unav ailable Reason for Visit * Reason Comments E-prescribe Rx Request Encounter Details Date Type Department Care Team Description 06/09/2023 Refill Bariatric Surgery - [place] [address] [facility] [address] [place] [address] aJky Coyne MD [address] [facility] [address] [place] [address] E-prescribe Rx Request Social History [...] on filedocumented in this encounter Care Teams Hydrologist Relationship Specialty Start Date End Date Martha Grey APRN PCP - General Internal Medicine 11/21/22 documented as of this encounter
--- OUTSIDE RECORDS SUMMARY | 2025-02-16 13:50 | XMS_ITS | Encounter Summary ---
Author Organization [facility] Address [address] [place] [address] Care Team Providers Care Chief Dispatcher Name Role Phone Martha Grey PANFILO Primary Care Provider Unav ailable Encounter Details Date Type Department Care Team Description 11/28/2022 Pt. Non Urgent Medical Question Bariatric Surgery - [place] [address] [facility] [address] [place] [address] Maria Elena [place] PA-C [address] [facility] 110 [place] [address] Social History Tobacco Use Types [...] can I go to hematology/ oncology through [facility] and see if they will do it documented in this encounter Plan of Treatment Not on file documented as of this encounter Visit Diagnoses Not on filedocumented in this encounter Care Teams Chief Dispatcher Relationship Specialty Start Date End Date Martha Grey APRN PCP - General Internal Medicine 11/21/22 documented as of this encounter
--- OUTSIDE RECORDS SUMMARY | 2025-02-16 13:50 | XMS_ITS | Encounter Summary ---
Author Organization [facility] Address [address] [place] [address] Care Team Providers Care Store Receiver Name Role Phone Siddhartha Oakes MD Primary Care Provider [phone] Emerald Yu MD Primary Care Provider Unavailable [facility], [facility] Primary Care Provider [facility] Emerald Yu MD Primary Care Provider Unavailable Chong[place]opal Colasacco, Susannah DO Primary Care Pro vider Unavailable Emerald Yu MD Primary Care Provider Unavailable [place] Colasacco, Susannah DO Primary Care Pro vider Unavailable Siddhartha Oakes MD Primary Care Provider [phone] Martha Grey APRN Primary Care Provider Unav ailable Martha Grey APRN Primary Care Provider Unav ailable Mike Burns NP Primary Care Provider Unavail able Martha Grey APRN Primary Care Provider Unav ailable Encounter Details Date Type Department Care Team Description 03/17/2012 Hospital Medical Records [address] [place] [address] Lisa Thorpe, [facility] [address] [place] [address] Social History Tobacco Use Types Packs/Day Years [...] on filedocumented in this encounter Care Teams Store Receiver Relationship Specialty Start Date End Date Siddhartha Oakes MD [address] [place] [address] PCP - General Internal Medicine 03/05/12 07/13/12 Emerald Yu MD [address] [place] [address] PCP - General Internal Medicine 07/14/12 10/13/13 [facility], [address] [address] PCP - General Internal Medicine 10/14/13 12/17/13 Emerald Yu MD [address] [place] [address] PCP - General Internal Medicine 12/18/13 02/13/15 Susannah Rendon DO [address] [place] [address] PCP - General Internal Medicine 02/14/15 05/09/15 Emerald Yu MD [address] [place] [address] PCP - General Internal Medicine 05/10/15 06/30/15 Susannah Rendon, [address] [place] [address] PCP - General Internal Medicine 07/01/15 05/05/19 Siddhartha Oakes MD [address] [place] [address] PCP - General Internal Medicine 05/06/19 01/12/20 Martha Grey APRN [address] [place] [address] PCP - General Internal Medicine 01/13/20 01/19/20 Martha Grey APRN [address] [place] [address] PCP - General Internal Medicine 01/20/20 05/16/22 Mike Burns NP [address] [place] [address] PCP - General Family Practice 05/17/22 11/20/22 Martha Grey APRN [address] [place] [address] PCP - General Internal Medicine 11/21/22 documented as of this encounter
--- OUTSIDE RECORDS SUMMARY | 2025-02-16 13:50 | XMS_ITS | Encounter Summary ---
Author Organization [facility] Address [address] [place] [address] Care Team Providers Care Brokerage Office Manager Name Role Phone Martha Grey APRN Primary Care Provider Unav ailable Reason for Visit * Reason Comments E-prescribe Rx Request Encounter Details Date Type Department Care Team Description 01/14/2023 Refill Bariatric Surgery - [facility] 175 [facility] [address] [place] [address] Jaky Coyne MD 175 [facility] [address] [place] [address] E-prescribe Rx Request Social History [...] on filedocumented in this encounter Care Teams Brokerage Office Manager Relationship Specialty Start Date End Date Martha Grey APRN PCP - General Internal Medicine 11/21/22 documented as of this encounter
--- OUTSIDE RECORDS SUMMARY | 2025-02-16 13:50 | XMS_ITS | Encounter Summary ---
Author Organization [facility] Address [address] [place] [address] Care Team Providers Care Associate Professor Of Geology Name Role Phone Martha Grey APRN Primary Care Provider Unav ailable Mike Burns NP Primary Care Provider Unavail able Martha Grey APRN Primary Care Provider Unav ailable Encounter Details Date Type Department Care Team Description 01/17/2022 Independent Contractor Report Medical Records [address] [place] [phone] [place] [address] Social History Tobacco Use Types Packs/Day Years [...] filedocumented in this encounter Care Teams Associate Professor Of Geology Relationship Specialty Start Date End Date Martha Grey APRN PCP - General Internal Medicine 01/20/20 05/16/22 Mike Burns NP PCP - General Family Practice 05/17/22 11/20/22 Martha Grey APRN PCP - General Internal Medicine 11/21/22 documented as of this encounter
--- OUTSIDE RECORDS SUMMARY | 2025-02-16 13:50 | XMS_ITS | Encounter Summary ---
Author Organization [facility] Address [address] [place] [address] Care Team Providers Care Cow Puncher Name Role Phone Siddhartha Oakes MD Primary Care Provider [phone] Martha Grey APRN Primary Care Provider Unav ailable Martha Grey APRN Primary Care Provider Unav ailable Mike Burns NP Primary Care Provider Unavail able Martha Grey APRN Primary Care Provider Unav ailable Encounter Details Date Type Department Care Team Description 08/31/2019 Machine Finisher Report Medical Records [address] [place] [address] Abstract, Provider Social History Tobacco Use Types [...] on filedocumented in this encounter Care Teams Cow Puncher Relationship Specialty Start Date End Date Siddhartha Oakes MD [address] [place] [address] PCP - General Internal Medicine 05/06/19 01/12/20 Martha Grey APRN [address] [place] [address] PCP - General Internal Medicine 01/13/20 01/19/20 Martha Grey, PANFILO [address] [place] [address] PCP - General Internal Medicine 01/20/20 05/16/22 Mike Burns NP [address] [place] [address] PCP - General Family Practice 05/17/22 11/20/22 Martha Grey APRN [address] [place] [address] PCP - General Internal Medicine 11/21/22 documented as of this encounter
--- OUTSIDE RECORDS SUMMARY | 2025-02-16 13:50 | XMS_ITS | Encounter Summary ---
Author Organization [facility] Address [address] [place] [address] Care Team Providers Care Tower Hand Name Role Phone Susannah Rendon DO Primary Care Pro vider Unavailable Siddhartha Oakes MD Primary Care Provider [phone] Martha Grey APRN Primary Care Provider Unav ailable Martha Grey APRN Primary Care Provider Unav ailable Mike Burns NP Primary Care Provider Unavail able Martha Grey APRN Primary Care Provider Unav ailable Reason for Visit * Reason Onset Date Comments TEST RESULTS 12/25/2018 Encounter Details Date Type Department Care Team Description 12/25/2018 Pt. Non Urgent Medic al Question Adult Medicine [address] [address] Keila Baker PA-C Social History Tobacco Use [...] on filedocumented in this encounter Care Teams Tower Hand Relationship Specialty Start Date End Date Susannah Rendon DO PCP - General Internal Medicine 07/01/15 05/05/19 Siddhartha Oakes MD [address] [place] [address] PCP - General Internal Medicine 05/06/19 01/12/20 Martha Grey APRN [address] [place] [address] PCP - General Internal Medicine 01/13/20 01/19/20 Martha Grey APRN [address] [place] [address] PCP - General Internal Medicine 01/20/20 05/16/22 Mike Burns NP [address] [place] [address] PCP - General Family Practice 05/17/22 11/20/22 Martha Grey APRN [address] [place] [address] PCP - General Internal Medicine 11/21/22 documented as of this encounter
--- OUTSIDE RECORDS SUMMARY | 2025-02-16 13:50 | XMS_ITS | Encounter Summary ---
Author Organization [facility] Address [address] [place] [address] Care Team Providers Care Professional Healthcare Representative Name Role Phone Siddhartha Oakes MD Primary Care Provider [phone] Martha Grey APRN Primary Care Provider Unav ailable Martha Grey APRN Primary Care Provider Unav ailable Mike Burns NP Primary Care Provider Unavail able Martha Grey APRN Primary Care Provider Unav ailable Reason for Visit * Reason Onset Date Comments nausea 11/13/2019 Encounter Details Date Type Department Care Team Description 11/13/2019 Telephone General Surgery - [address] [place] [address] Jasmine Smith MD [address] [place] [address] [address] [place], [place] [phone] nausea Social History Tobacco Use Types Packs/Day [...] on filedocumented in this encounter Care Teams Professional Healthcare Representative Relationship Specialty Start Date End Date Siddhartha Oakes MD [address] [place] [address] PCP - General Internal Medicine 05/06/19 01/12/20 Martha Grey APRN [address] [place] [address] PCP - General Internal Medicine 01/13/20 01/19/20 Martha Grey APRN [address] [place] [address] PCP - General Internal Medicine 01/20/20 05/16/22 Mike Burns NP [address] [place] [address] PCP - General Family Practice 05/17/22 11/20/22 Martha Grey APRN [address] [place] [address] PCP - General Internal Medicine 11/21/22 documented as of this encounter
--- OUTSIDE RECORDS SUMMARY | 2025-02-16 13:50 | XMS_ITS | Encounter Summary ---
Author Organization [facility] Address [address] [place] [address] Care Team Providers Care Financial Health Counselor Name Role Phone Radha Martel PA-C Primary Care Provi mckenna Vinod Robles MD Unavailable [phone] Encounter Details Date Type Department Care Team (Late st Contact Info) Description 05/04/[address] [phone] Radha Martel PA-C [address] [place] [address] Social History Tobacco Use Types Packs/Day Years [...] [place] - 05/04/2024 12:44 PM EDT from [facility] genetics stated they got a referral [...] Description 04/01/2025 9:45 AM EDT Office Visit [facility] Department of Cardiology [place] 160 [facility] 100 [place] [address] Antonio Puente MD 160 [facility] 100 [place] [address] 04/13/2025 8:30 AM EDT [facility] [address] [address] Theodora Yap APRN [address] [address] 05/20/2025 3:45 PM EDT Office Visit [facility] [address] [facility] [address] [place] [address] Radha Martel PA-C [address] [place] [address] 05/27/2025 8:00 AM EDT [facility] [address] [place] [address] Raphael Mcdaniel MD [address] [place] [address] 07/22/2025 9:20 AM EDT Office Visit [facility] Department Of Hematology/Oncology [place] [address] [place] [address] Jhoana Wilkins MD 300 [facility] [address] [place] [address] documented as of this encounter Visit Diagnoses Not on filedocumented in this encounter Care Teams Financial Health Counselor Relationship Specialty Start Date End Date Radha Martel PA-C [address] [place] [address] PCP - General Internal Medicine 02/24/24 Vinod Robles MD [address] [place] [address] Primary Workers Compensation Administrator Cardiovascular Disease 09/02/24 documented as of this encounter
--- OUTSIDE RECORDS SUMMARY | 2025-02-16 13:50 | XMS_ITS | Encounter Summary ---
Author Organization [facility] Address [address] [place] [address] Care Team Providers Care Comfort Advisor Name Role Phone Susannah Rendon DO Primary Care Pro vider Unavailable Siddhartha Oakes MD Primary Care Provider [phone] Martha Grey APRN Primary Care Provider Unav ailable Martha Grey APRN Primary Care Provider Unav ailable Mike Burns NP Primary Care Provider Unavail able Martha Grey APRN Primary Care Provider Unav ailable Encounter Details Date Type Department Care Team Description 04/14/2019 Release of Information Medical Records [address] [place] [address] Abstract, Provider Social History Tobacco Use Types [...] on filedocumented in this encounter Care Teams Comfort Advisor Relationship Specialty Start Date End Date Susannah Rendon DO PCP - General Internal Medicine 07/01/15 05/05/19 Siddhartha Oakes MD [address] [place] [address] PCP - General Internal Medicine 05/06/19 01/12/20 Martha Grey APRN [address] [place] [address] PCP - General Internal Medicine 01/13/20 01/19/20 Martha Grey APRN [address] [place] [address] PCP - General Internal Medicine 01/20/20 05/16/22 Mike Burns NP [address] [place] [address] PCP - General Family Practice 05/17/22 11/20/22 Martha Grey APRN [address] [place] [address] PCP - General Internal Medicine 11/21/22 documented as of this encounter
--- OUTSIDE RECORDS SUMMARY | 2025-02-16 13:50 | XMS_ITS | Encounter Summary ---
Author Organization [facility] Address [address] [place] [address] Care Team Providers Care Cigar Packer Name Role Phone Martha Grey APRN Primary Care Provider Unav ailable Mike Burns NP Primary Care Provider Unavail able Martha Grey APRN Primary Care Provider Unav ailable Reason for Visit * Reason Onset Date Comments Provider Call Back 03/28/2020 Encounter Details Date Type Department Care Team Description 03/28/2020 Telephone Adult Medicine B - [address] [address] Martha Grey APRN Provider Call Back Social [...] on filedocumented in this encounter Care Teams Cigar Packer Relationship Specialty Start Date End Date Martha Grey APRN PCP - General Internal Medicine 01/20/20 05/16/22 Mike Burns NP PCP - General Family Practice 05/17/22 11/20/22 Martha Grey APRN PCP - General Internal Medicine 11/21/22 documented as of this encounter
--- OUTSIDE RECORDS SUMMARY | 2025-02-16 13:50 | XMS_ITS | Encounter Summary ---
Author Organization [facility] Address [address] [place] [address] Care Team Providers Care Boiling Tub Operator Name Role Phone Martha Grey APRN Primary Care Provider Unav ailable Mike Burns NP Primary Care Provider Unavail able Martha Grey APRN Primary Care Provider Unav ailable Encounter Details Date Type Department Care Team Description 04/04/2020 Refill Adult Medicine [address] [address] Martha Grey APRN Social History Tobacco Use [...] on filedocumented in this encounter Care Teams Boiling Tub Operator Relationship Specialty Start Date End Date Martha Grey APRN PCP - General Internal Medicine 01/20/20 05/16/22 Mike Burns NP PCP - General Family Practice 05/17/22 11/20/22 Martha Grey APRN PCP - General Internal Medicine 11/21/22 documented as of this encounter
--- OUTSIDE RECORDS SUMMARY | 2025-02-16 13:50 | XMS_ITS | Encounter Summary ---
Author Organization [facility] Address [address] [place] [address] Care Team Providers Care In Classroom Tutor Name Role Phone Martha Grey APRN Primary Care Provider Unav ailable Reason for Visit * Reason Comments E-prescribe Rx Request Encounter Details Date Type Department Care Team Description 08/19/2023 Refill Bariatric Surgery - [place] [address] [facility] [address] [place] [address] Jaky Coyne MD [address] [facility] [address] [place] [address] E-prescribe Rx Request Social History [...] on filedocumented in this encounter Care Teams In Classroom Tutor Relationship Specialty Start Date End Date Martha Grey APRN PCP - General Internal Medicine 11/21/22 documented as of this encounter
--- OUTSIDE RECORDS SUMMARY | 2025-02-16 13:50 | XMS_ITS | Encounter Summary ---
Author Organization [facility] Address [address] [place] [address] Care Team Providers Care Field Consultant Name Role Phone Siddhartha Oakes MD Primary Care Provider Emerald Yu MD Primary Care Provider Unavailable [facility] Primary Care [facility] Emerald Yu MD Primary Care Provider Unavailable Oj Colasadavido, Susannah DO Primary Care Pro vider Unavailable Emerald Yu MD Primary Care Provider Unavailable Krakoopal Colasadavido, Susannah DO Primary Care Pro vider Unavailable Siddhartha Oakes MD Primary Care Provider [phone] Martha Grey APRN Primary Care Provider Unav ailable Martha Grey APRN Primary Care Provider Unav ailable Mike Burns NP Primary Care Provider Unavail able Martha Grey APRN Primary Care Provider Unav ailable Reason for Visit * Reason Comments Encounter Details Date Type Department Care Team Description 06/04/2012 Telephone OBGYN - [facility] [address] [place], [place] [id number] Aurea Schneider CNM Social History Tobacco Use [...] Called patient to inform her that all [facility] labs normal documented in this encounter Plan of Treatment Not on file documented as of this encounter Visit Diagnoses Not on filedocumented in this encounter Care Teams Field Consultant Relationship Specialty Start Date End Date Siddhartha Oakes MD [address] [place] [address] PCP - General Internal Medicine 03/05/12 07/13/12 Emerald Yu MD [address] [place] [address] PCP - General Internal Medicine 07/14/12 10/13/[address] [address] PCP - General Internal Medicine 10/14/13 12/17/13 Emerald Yu MD [address] [place] [address] PCP - General Internal Medicine 12/18/13 02/13/15 Susannah Rendon, DO [address] [place] [address] PCP - General Internal Medicine 02/14/15 05/09/15 Emerald Yu MD [address] [place] [address] PCP - General Internal Medicine 05/10/15 06/30/15 Susannah Rendon, [address] [place] [address] PCP - General Internal Medicine 07/01/15 05/05/19 Siddhartha Oakes MD [address] [place] [address] PCP - General Internal Medicine 05/06/19 01/12/20 Martha Grey APRN [address] [place] [address] PCP - General Internal Medicine 01/13/20 01/19/20 Martha Grey APRN [address] [place] [address] PCP - General Internal Medicine 01/20/20 05/16/22 Mike Burns NP [address] [place] [address] PCP - General Family Practice 05/17/22 11/20/22 Martha Grey APRN [address] [place] [address] PCP - General Internal Medicine 11/21/22 documented as of this encounter
--- OUTSIDE RECORDS SUMMARY | 2025-02-16 13:50 | XMS_ITS | Encounter Summary ---
Author Organization [facility] Address [address] [place] [address] Care Team Providers Care Head Irrigator Name Role Phone Radha Martel PA-C Primary Care Provi mckenna Vinod Robles MD Unavailable [phone] Encounter Details Date Type Department Care Team (Late st Contact Info) Description 05/26/2024 Scanned Document [facility] [address] [place] [address] Internal Medicine, Scan Social History Tobacco Use [...] Office Visit [facility] Department of Cardiology [place] [address] [place] [address] Antonio Puente MD [address] [place] [address] 04/13/2025 8:30 AM EDT [facility] [address] [address] Theodora Yap APRN [address] [address] 05/20/2025 3:45 PM EDT Office Visit [address] [place] [address] Radha Martel PA-C [address] [place] [address] 05/27/2025 8:00 AM EDT [facility] [address] [address] Raphael Mcdaniel MD 31 [place] [address] 07/22/2025 9:20 AM EDT Office Visit [facility] Department Of Hematology/Oncology [address] [phone] Jhoana Wilkins MD [address] [facility] [address] [place] [address] documented as of this encounter Visit Diagnoses Not on filedocumented in this encounter Care Teams Head Irrigator Relationship Specialty Start Date End Date Radha Martel PA-C [address] [place] [address] PCP - General Internal Medicine 02/24/24 Vinod Robles MD [address] [place] [address] Primary Configuration Release Manager Cardiovascular Disease 09/02/24 documented as of this encounter
--- OUTSIDE RECORDS SUMMARY | 2025-02-16 13:50 | XMS_ITS | Encounter Summary ---
Author Organization [facility] Address [address] [place] [address] Care Team Providers Care Blue Leather Setter Name Role Phone Martha Grey APRN Primary Care Provider Unav ailable Mike Burns NP Primary Care Provider Unavail able Martha Grey APRN Primary Care Provider Unav ailable Reason for Visit * Reason Onset Date Comments Medication 02/02/2020 Encounter Details Date Type Department Care Team Description 02/02/2020 Pt. Non Urgent Medical Question Adult Medicine [address] [address] Ingrid Price APRN [address] [place] [address] Social History Tobacco Use Types Packs/Day Years [...] on filedocumented in this encounter Care Teams Blue Leather Setter Relationship Specialty Start Date End Date Martha Grey APRN PCP - General Internal Medicine 01/20/20 05/16/22 Mike Burns NP PCP - General Family Practice 05/17/22 11/20/22 Martha Grey APRN PCP - General Internal Medicine 11/21/22 documented as of this encounter
--- OUTSIDE RECORDS SUMMARY | 2025-02-16 13:50 | XMS_ITS | Encounter Summary ---
Author Organization [facility] Address [address] [place] [address] Care Team Providers Care Funeral Prearrangement Counselor Name Role Phone Siddhartha Oakes MD Primary Care Provider [phone] Martha Grey APRN Primary Care Provider Unav ailable Martha Grey APRN Primary Care Provider Unav ailable Mike Burns NP Primary Care Provider Unavail able Martha Grey APRN Primary Care Provider Unav ailable Encounter Details Date Type Department Care Team Description 08/13/2019 Old Medical Records Medical Records [address] [place] [address] Abstract, Provider Social History Tobacco Use Types [...] on filedocumented in this encounter Care Teams Funeral Prearrangement Counselor Relationship Specialty Start Date End Date Siddhartha Oakes MD [address] [place] [address] PCP - General Internal Medicine 05/06/19 01/12/20 Martha Grey APRN [address] [place] [address] PCP - General Internal Medicine 01/13/20 01/19/20 Martha Grey, PANFILO [address] [place] [address] PCP - General Internal Medicine 01/20/20 05/16/22 Mike Burns NP [address] [place] [address] PCP - General Family Practice 05/17/22 11/20/22 Martha Grey APRN [address] [place] [address] PCP - General Internal Medicine 11/21/22 documented as of this encounter
--- OUTSIDE RECORDS SUMMARY | 2025-02-16 13:50 | XMS_ITS | Encounter Summary ---
Author Organization [facility] Address [address] [place] [address] Care Team Providers Care Asbestos Brake Lining Finisher Name Role Phone Radha Martel PA-C Primary Care Provi mckenna Vinod Robles MD Unavailable [phone] Reason for Referral * Rehabilitation (Routine) - Pending Review Specialty Diagnoses / Procedures Referred By Aman beltran Referred To Contact Physical Medicine and Rehabilitation / Pain Management Diagnoses Low back pain, unspecified back pain laterality, unspecified chronicity, unspecified whether sciatica present Cervicalgia Raphael Mcdaniel MD [address] [place] [address] Phone: tel: fax: Blaine Short MD [address] [place] [address] Phone: tel: fax: Referral ID Status Reason Start Date Expiration Date Visits Requested Visits Authorized [id number] Pending Review Consult 02/16/2025 02/17/2026 1 1 Comments Cervical and low back injections Encounter Details Date Type Department Care Team (Late st Contact Info) Description 02/16/2025 8:15 AM EDT [facility] Visit [facility] [address] [place] [address] Raphael Mcdaniel MD [address] [place] [address] Low back pain, unspecified back pain laterality, unspecified chronicity, unspecified whether sciatica present (Primary Dx); Cervicalgia Social History Tobacco Use Types Packs/Day Years [...] as of this encounter Progress Notes * Raphael Mcdaniel MD - 02/16/2025 8:15 AM EDT Images from the original note were not included. [address] [facility] [address] [address] Encounter Date: 02/16/2025 Assessment & Plan I reviewed her MRIs in great detail. I see no evidence to have any sort of cauda equina and she hasno evidence of severe cervical stenosis to be causing cervical myelopathy. I am unsure of the causeof the symptoms. I will refer her to neurology, she is interested in possible injections for her cervical and lumbar spine. I will refer her to pain management for possible cervical facet injections and lumbar facet injections. I will see her back in 3 months see how she is doing. All questions were answered today. History of Present Illness: Deyanira Millan is a 35 y.o. female who presents today for repeat consultation regarding her cervical lumbar spine. She had a long history of neck and low back issues. She has a history of symptoms of gait and occasional she reports bowel bladder issues. 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 She is here today to review her MRI. She reports no significant changes but she does have axial neck pain especially worse on the right side. Physical Exam Neuromotor Examination: Upper extremities: Muscle Group Right Left Shoudler abduction 5/5 5/5 Elbow flexion 5/5 5/5 Elbow extension 5/5 5/5 Wrist flexion 5/5 5/5 Wrist extension 5/5 5/5 Intrinsics 5/5 5/5 SILT C5-T1 bilaterally. Negative Servin bilaterally. Lower extremities: Muscle Group Right Left Hip Flexor 5/5 5/5 Quadriceps 5/5 5/5 Tibialis Anterior 5/5 5/5 EHL 5/5 5/5 FHL 5/5 5/5 Gastroc/Soleus 5/5 5/5 SILT L2-S1 bilaterally. Patellar and Achilles reflexes symmetric bilaterally. No clonus bilaterally. Imaging Imaging Impression: I independently reviewed her cervical and lumbar MRI. She has small disc desiccation through C3-4 with no severe cervical stenosis, she has no evidence of severe lumbar pathology with either central lateral recess or foraminal stenosis Visit Orders. There are no diagnoses linked to this encounter. Review of Systems Review of Systems 10 point review of system performed, pertinent HPI Raphael Mcdaniel MD documented in this encounter Plan of Treatment Upcoming Encounters Date Type Department Care Team (Late st Contact Info) Description 04/01/2025 9:45 AM EDT Office Visit [facility] Department of Cardiology [place] [address] [facility] 100 [place] [address] Antonio Puente MD [address] [address] 04/13/2025 8:30 AM EDT [facility] [address] [place] [address] Theodora Yap APRN 31 [facility] 100 [place] [address] 05/20/2025 3:45 PM EDT Office Visit [facility] 100 [facility] [address] [place] [address] Radha Martel PA-C 100 [place] [address] 05/27/2025 8:00 AM EDT [facility] [address] [place] [address] Raphael Mcdaniel MD 31 [place] [address] 07/22/2025 9:20 AM EDT Office Visit [facility] Department Of Hematology/Oncology [place] [address] [place] [address] [facility] [address] [place] [phone] Jhoana Wilkins MD 300 [facility] [address] [place] [address] Scheduled Referrals Name Type Priority Associated Diagnoses Orde r Schedule Amb Referral to Physical Medicine Rehab Outpatient Referral Routine Low back pain, unspecified back pain laterality, unspecified chronicity, unspecified whether sciatica present Cervicalgia Ordered: 02/16/2025 documented as of this encounter Visit Diagnoses Diagnosis Low back pain, unspecified back pain laterality, unspecified chronicity, unspecified whether sciatica present- Primary Cervicalgia documented in this encounter Care Teams Asbestos Brake Lining Finisher Relationship Specialty Start Date End Date Radha Martel PA-C [address] [place] [address] PCP - General Internal Medicine 02/24/24 Vinod Robles MD [address] [place] [address] Primary Typer Cardiovascular Disease 09/02/24 documented as of this encounter
--- OUTSIDE RECORDS SUMMARY | 2025-02-16 13:50 | XMS_ITS | Encounter Summary ---
Author Organization [facility] Address [address] [place] [address] Care Team Providers Care Registered Travel Nurse Name Role Phone Radha Martel PA-C Primary Care Provi mckenna Vinod Robles MD Unavailable Encounter Details Date Type Department Care Team (Late st Contact Info) Description 02/08/2025 Scanned Document [facility] [place] [address] [place] [address] Raphael Mcdaniel MD 31 [place] [address] Social History Tobacco Use Types Packs/Day Years [...] Description 04/01/2025 9:45 AM EDT Office Visit [facility] Department of Cardiology [place] [address] [place] [address] Antonio Puente MD 160 [facility] 100 [place] [address] 04/13/2025 8:30 AM EDT [facility] [address] [place] [address] Theodora Yap APRN [address] [address] 05/20/2025 3:45 PM EDT Office Visit [facility] 100 [facility] 101 [place] [address] Radha Martel PA-C 100 [place] [address] 05/27/2025 8:00 AM EDT [facility] [address] [address] Raphael Mcdaniel MD 31 [place] [address] 07/22/2025 9:20 AM EDT Office Visit [facility] Department Of Hematology/Oncology [place] [address] [place] [phone] Jhoana Wilkins MD [address] [place] [facility] [address] [place] [address] documented as of this encounter Visit Diagnoses Not on filedocumented in this encounter Care Teams Registered Travel Nurse Relationship Specialty Start Date End Date Radha Martel PA-C 100 [place] [address] PCP - General Internal Medicine 02/24/24 Vinod Robles MD [address] [place] [address] Primary Table Tender Sludge Cardiovascular Disease 09/02/24 documented as of this encounter
--- OUTSIDE RECORDS SUMMARY | 2025-02-16 13:50 | XMS_ITS | Encounter Summary ---
Author Organization [facility] Address [address] [place] [address] Care Team Providers Care Toe Puncher Name Role Phone Siddhartha Oakes MD Primary Care Provider [phone] Martha Grey APRN Primary Care Provider Unav ailable Martha Grey APRN Primary Care Provider Unav ailable Mike Burns NP Primary Care Provider Unavail able Martha Grey APRN Primary Care Provider Unav ailable Reason for Visit * Reason Onset Date Comments Prior Authorization 05/14/2019 colonoscopy and EGD Encounter Details Date Type Department Care Team Description 05/14/2019 Telephone Gastroenterology - [address] [place] [phone] Reji Ortega MD Prior Authorization (colonoscopy and EGD) Social History Tobacco Use Types Packs/Day Years [...] Notes * Telephone Encounter - Maria Elena Tariq - 05/14/2019 3:02 PM EDT [facility] - no auth req * Telephone Encounter - Candie Ugalde - 05/14/2019 2:22 PM EDT 3Pre-auth needed Patient is scheduled for an Endoscopy and Colonoscopy on 05/21/19 Patients insurance: [facility] Appointment is with Reji Ortega MD Code to process pre-auth for: [id number] Location of procedure: [facility] documented in this encounter Plan of Treatment Not on file documented as of this encounter Visit Diagnoses Not on filedocumented in this encounter Care Teams Toe Puncher Relationship Specialty Start Date End Date Siddhartha Oakes MD [address] [place] [address] PCP - General Internal Medicine 05/06/19 01/12/20 Martha Grey APRN [address] [place] [address] PCP - General Internal Medicine 01/13/20 01/19/20 Martha Grey APRN [address] [place] [address] PCP - General Internal Medicine 01/20/20 05/16/22 Mike Burns NP [address] [place] [address] PCP - General Family Practice 05/17/22 11/20/22 Martha Grey APRN [address] [place] [address] PCP - General Internal Medicine 11/21/22 documented as of this encounter
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
--- OUTSIDE RECORDS SUMMARY | 2025-02-16 13:50 | XMS_ITS | Encounter Summary ---
Author Organization [facility] Address [address] [place] [address] Care Team Providers Care Net Web Application Developer Name Role Phone Siddhartha Oakes MD Primary Care Provider [phone] Martha Grey APRN Primary Care Provider Unav ailable Martha Grey APRN Primary Care Provider Unav ailable Mike Burns NP Primary Care Provider Unavail able Martha Grey APRN Primary Care Provider Unav ailable Encounter Details Date Type Department Care Team Description 05/06/2019 Hospital Medical Records [address] [place] [address] Jasmine Smith MD [address] [place] [address] [place] [address] Social History Tobacco Use Types Packs/Day Years [...] filedocumented in this encounter Care Teams Net Web Application Developer Relationship Specialty Start Date End Date Siddhartha Oakes MD [address] [place] [address] PCP - General Internal Medicine 05/06/19 01/12/20 Martha Grey APRN [address] [place] [address] PCP - General Internal Medicine 01/13/20 01/19/20 Martha Grey APRN [address] [place] [address] PCP - General Internal Medicine 01/20/20 05/16/22 Mike Burns NP [address] [place] [address] PCP - General Family Practice 05/17/22 11/20/22 Martha Grey APRN [address] [place] [address] PCP - General Internal Medicine 11/21/22 documented as of this encounter
--- OUTSIDE RECORDS SUMMARY | 2025-02-16 13:50 | XMS_ITS | Encounter Summary ---
Author Organization [facility] Address [address] [place] [address] Care Team Providers Care Shoe Repairer Helper Name Role Phone Martha Grey APRN Primary Care Provider Unav ailable Reason for Visit * Reason Comments E-prescribe Rx Request Encounter Details Date Type Department Care Team Description 02/10/2023 Refill Bariatric Surgery - [place] [address] [facility] [address] [place] [address] Jaky Coyne MD [address] [facility] [address] [place] [address] E-prescribe Rx Request Social History [...] on filedocumented in this encounter Care Teams Shoe Repairer Helper Relationship Specialty Start Date End Date Martha Grey APRN PCP - General Internal Medicine 11/21/22 documented as of this encounter
--- OUTSIDE RECORDS SUMMARY | 2025-02-16 13:50 | XMS_ITS | Encounter Summary ---
Author Organization [facility] Address [address] [place] [address] Care Team Providers Care Equipment Sterilizer Name Role Phone Emerald Yu MD Primary Care Provider Unavailable [facility], Pcp [facility] Emerald uY MD Primary Care Provider Unavailable [place] Colasacco, [...] Details Date Type Department Care Team Description 09/20/2013 Telephone Adult Medicine [address] [address] Emerald Yu MD Social History Tobacco Use Types Packs/Day [...] Telephone Encounter - Petar Keen L.P.N. - 09/20/2013 11:34 AM EST Message copied by LAWRENCE KEEN L.P.N. on SatSep 20, 2013 11:34 AM ------ Message from: NEL HA Created: SatSep 14, 2013 9:40 AM Please have patient schedule PE with pcp. She will need to have her cholesterol checked. She had an elevated protein in her labwork done for weight managemtn that would warrant furthur evaluation. Thanks * Telephone Encounter - Petar Keen L.P.N. - 09/20/2013 11:31 AM EST Message copied by LAWRENCE KEEN L.P.N. on SatSep 20, 2013 11:31 AM ------ Message from: NEL HA Created: SatSep 14, 2013 9:40 AM Please have patient schedule PE with pcp. She will need to have her cholesterol checked. She had an elevated protein in her labwork done for weight managemtn that would warrant furthur evaluation. Thanks documented in this encounter Plan of Treatment Not on file documented as of this encounter Visit Diagnoses Not on filedocumented in this encounter Care Teams Equipment Sterilizer Relationship Specialty Start Date End Date Emerald Yu MD PCP - General Internal Medicine 07/14/1210/13 [facility], Pcp PCP - General Internal Medicine 10/14/13 12/17/13 Emerald Yu MD PCP - General Internal Medicine 12/18/1302/04 Susannah Rendon DO PCP - General Internal Medicine 02/14/15 05/09/15 Emerald Yu MD PCP - General Internal Medicine 05/10/15 901/19 Susannah Rendon DO PCP - General Internal Medicine 07/01/15 05/05/19 Siddhartha Oakes MD [address] [place] [address] PCP - General Internal Medicine 05/06/19 01/12/20 Martha Grey APRN [address] [place] [address] PCP - General Internal Medicine 01/13/20 01/19/20 Martha Grey APRN [address] [place] [address] PCP - General Internal Medicine 01/20/20 05/16/22 Mike Burns NP [address] [place] [address] PCP - General Family Practice 05/17/22 11/20/22 Martha Grey APRN [address] [place] [address] PCP - General Internal Medicine 11/21/22 documented as of this encounter
--- OUTSIDE RECORDS SUMMARY | 2025-02-16 13:50 | XMS_ITS | Encounter Summary ---
Author Organization [facility] Address [address] [place] [address] Care Team Providers Care Wholesale Representative Name Role Phone Emerald Yu MD Primary Care Provider Unavailable [facility], Pcp Primary Care Provider Unavailabl e Emerald Yu MD Primary Care Provider Unavailable [place] Colasacco, Susannah DO Primary Care Pro vider Unavailable Emerald Yu MD Primary Care Provider Unavailable [place] Colasacco, Susannah DO Primary Care Pro vider Unavailable Siddhartha Oakes MD Primary Care Provider [phone] Martha Grey APRN Primary Care Provider Unav ailable Martha Grey APRN Primary Care Provider Unav ailable Mike Burns NP Primary Care Provider Unavail able Martha Grey APRN Primary Care Provider Unav ailable Encounter Details Date Type Department Care Team Description 08/26/2013 Release of Information Medical Records [address] [place] [address] Abstract, Provider Social History Tobacco Use Types [...] on filedocumented in this encounter Care Teams Wholesale Representative Relationship Specialty Start Date End Date Emerald Yu MD PCP - General Internal Medicine 07/14/1210/13 [facility] PCP - General Internal Medicine 10/14/13 12/17/13 Emerald Yu MD PCP - General Internal Medicine 12/18/1302/04 Susannah Rendon DO PCP - General Internal Medicine 02/14/15 05/09/15 Emerald Yu MD PCP - General Internal Medicine 05/10/1506/08 Susannah Rendon DO PCP - General Internal Medicine 07/01/15 05/05/19 Siddhartha Oakes MD [address] [place] [address] PCP - General Internal Medicine 05/06/19 01/12/20 Martha Grey APRN [address] [place] [address] PCP - General Internal Medicine 01/13/20 01/19/20 Martha Grey APRN [address] [place] [address] PCP - General Internal Medicine 01/20/20 05/16/22 Mike Burns NP [address] [place] [address] PCP - General Family Practice 05/17/22 11/20/22 Martha Grey APRN [address] [place] [address] PCP - General Internal Medicine 11/21/22 documented as of this encounter
--- OUTSIDE RECORDS SUMMARY | 2025-02-16 13:51 | XMS_ITS | Encounter Summary ---
Author Organization [facility] Address [address] [place] [address] Care Team Providers Care Phone Representative Name Role Phone Martha Grey APRN Primary Care Provider Unav ailable Mike Burns NP Primary Care Provider Unavail able Martha Grey APRN Primary Care Provider Unav ailable Reason for Visit * Reason Onset Date Comments TEST RESULTS 01/06/2021 Encounter Details Date Type Department Care Team Description 01/06/2021 Telephone Adult Medicine [facility] [address] [place] [address] Martha Grey APRN TEST RESULTS Social History Tobacco Use Types [...] * Telephone Encounter - Jackie Alcazar - 01/06/2021 10:34 AM EDT Inform patient: ANY URGENT OR ABNORMAL RESULTS WIILL RESULT IN A CALL BACK TO THE PATIENT OMER. Type of test: :Labs Date test was performed: 01/04/21 Where was the test performed: [place] Who ordered this test?: Maria Elena Mirza Is the doctor here today?: YES Can the message wait until the doctor returns?: NO IF PATIENT'S PCP IS NOT IN INSTRUCT PATIENT THAT THEY WILL RECEIVE A CALL BACK WHEN THE PCP IS IN THE OFFICE NEXT. documented in this encounter Plan of Treatment Not on file documented as of this encounter Visit Diagnoses Not on filedocumented in this encounter Care Teams Phone Representative Relationship Specialty Start Date End Date Martha Grey APRN PCP - General Internal Medicine 01/20/20 05/16/22 Mike Burns NP PCP - General Family Practice 05/17/22 11/20/22 Martha Grey APRN PCP - General Internal Medicine 11/21/22 documented as of this encounter
--- OUTSIDE RECORDS SUMMARY | 2025-02-16 13:51 | XMS_ITS | Encounter Summary ---
Author Organization [facility] Address [address] [place] [address] Care Team Providers Care Supervisor Compressed Yeast Name Role Phone Susannah Rendon DO Primary Care Pro vider Unavailable Siddhartha Oakes MD Primary Care Provider [phone] Martha Grey APRN Primary Care Provider Unav ailable Martha Grey APRN Primary Care Provider Unav ailable Mike Burns NP Primary Care Provider Unavail able Martha Grey APRN Primary Care Provider Unav ailable Reason for Visit * Reason Onset Date Comments Provider Call Back 07/12/2015 Encounter Details Date Type Department Care Team Description 07/12/2015 Telephone Adult Medicine [address] [address] Susannah Rendon DO Provider Call Back Social [...] filedocumented in this encounter Care Teams Supervisor Compressed Yeast Relationship Specialty Start Date End Date Susannah Rendon DO PCP - General Internal Medicine 07/01/15 05/05/19 Siddhartha Oakes MD [address] [place] [address] PCP - General Internal Medicine 05/06/19 01/12/20 Martha Grey APRN [address] [place] [address] PCP - General Internal Medicine 01/13/20 01/19/20 Martha Grey APRN [address] [place] [address] PCP - General Internal Medicine 01/20/20 05/16/22 Mike Burns NP [address] [place] [address] PCP - General Family Practice 05/17/22 11/20/22 Martha Grey APRN [address] [place] [address] PCP - General Internal Medicine 11/21/22 documented as of this encounter
--- OUTSIDE RECORDS SUMMARY | 2025-02-16 13:51 | XMS_ITS | Encounter Summary ---
Author Organization [facility] Address [address] [place] [address] Care Team Providers Care Tire Inspector Name Role Phone Siddhartha Oakes MD Primary Care Provider [phone] Martha Grey APRN Primary Care Provider Unav ailable Martha Grey APRN Primary Care Provider Unav ailable Mike Burns NP Primary Care Provider Unavail able Martha Grey APRN Primary Care Provider Unav ailable Encounter Details Date Type Department Care Team Description 09/28/2019 Release of Information Medical Records [address] [place] [address] Abstract, Provider Social History Tobacco Use Types [...] on filedocumented in this encounter Care Teams Tire Inspector Relationship Specialty Start Date End Date Siddhartha Oakes MD [address] [place] [address] PCP - General Internal Medicine 05/06/19 01/12/20 Martha Grey APRN [address] [place] [address] PCP - General Internal Medicine 01/13/20 01/19/20 Martha Grey, PANFILO [address] [place] [address] PCP - General Internal Medicine 01/20/20 05/16/22 Mike Burns NP [address] [place] [address] PCP - General Family Practice 05/17/22 11/20/22 Martha Grey APRN [address] [place] [address] PCP - General Internal Medicine 11/21/22 documented as of this encounter
--- OUTSIDE RECORDS SUMMARY | 2025-02-16 13:51 | XMS_ITS | Encounter Summary ---
Author Organization [facility] Address [address] [place] [address] Care Team Providers Care Acquisition Cost Estimator Name Role Phone Martha Grey APRN Primary Care Provider Unav ailable Mike Burns NP Primary Care Provider Unavail able Martha Grey APRN Primary Care Provider Unav ailable Reason for Visit * Reason Comments E-prescribe Rx Request Encounter Details Date Type Department Care Team Description 02/24/2021 Refill Adult Medicine [address] [address] Martha Grey APRN E-prescribe Rx Request Social [...] N/A Patients current insurance carrier is: [facility]: [facility] / Plan: CC-KRISTYN SILVER TYPE 2 / Product Type: HMO [id number] documented in this encounter Plan of Treatment Not on file documented as of this encounter Visit Diagnoses Not on filedocumented in this encounter Care Teams Acquisition Cost Estimator Relationship Specialty Start Date End Date Martha Grey APRN PCP - General Internal Medicine 01/20/20 05/16/22 Mike Burns NP PCP - General Family Practice 05/17/22 11/20/22 Martha Grey APRN PCP - General Internal Medicine 11/21/22 documented as of this encounter
--- OUTSIDE RECORDS SUMMARY | 2025-02-16 13:51 | XMS_ITS | Encounter Summary ---
Author Organization [facility] Address [address] [place] [address] Care Team Providers Care Lead Assistant Manager Name Role Phone Siddhartha Oakes MD Primary Care Provider [phone] Martha Grey APRN Primary Care Provider Unav ailable Martha Grey APRN Primary Care Provider Unav ailable Mike Burns NP Primary Care Provider Unavail able Martha Grey APRN Primary Care Provider Unav ailable Encounter Details Date Type Department Care Team Description 01/08/2020 [facility] Medical Records [address] [place] [address] Abstract, Provider Social History Tobacco Use Types [...] on filedocumented in this encounter Care Teams Lead Assistant Manager Relationship Specialty Start Date End Date Siddhartha Oakes MD [address] [place] [address] PCP - General Internal Medicine 05/06/19 01/12/20 Martha Grey APRN [address] [place] [address] PCP - General Internal Medicine 01/13/20 01/19/20 Martha Grey APRN [address] [place] [address] PCP - General Internal Medicine 01/20/20 05/16/22 Mike Burns NP [address] [place] [address] PCP - General Family Practice 05/17/22 11/20/22 Martha Grey APRN [address] [place] [address] PCP - General Internal Medicine 11/21/22 documented as of this encounter
--- OUTSIDE RECORDS SUMMARY | 2025-02-16 13:51 | XMS_ITS | Encounter Summary ---
Author Organization [facility] Address [address] [place] [address] Care Team Providers Care Metal Roofer Name Role Phone Radha Martel PA-C Primary Care Provi mckenna Vinod Robles MD Unavailable [phone] Encounter Details Date Type Department Care Team (Late st Contact Info) Description 03/12/2024 Scanned Document [facility]icians Department Of Hematology/Oncology [place] [address] [place] [phone] Jhoana Wilkins MD [address] [place] [address] Social History Tobacco Use Types Packs/Day Years [...] Description 04/01/2025 9:45 AM EDT Office Visit [facility] Department of Cardiology [place] [address] [place] [phone] Antonio Puente MD [address] [place] [address] 04/13/2025 8:30 AM EDT [facility] Visit [facility] [address] [address] Theodora Yap APRN [address] [address] 05/20/2025 3:45 PM EDT Office Visit [address] [place] [address] Radha Martel PA-C [address] [place], [place] [phone] 05/27/2025 8:00 AM EDT [facility] Visit [facility] [place] [phone] Raphael Mcdaniel MD [address] [place] [address] 07/22/2025 9:20 AM EDT Office Visit [facility] Department Of Hematology/Oncology [address] Conner Gomez [address] [place] [phone] Jhoana Wilkins MD [address] [facility] [address] [place] [address] documented as of this encounter Procedures Procedure Name Priority Date/Time Associated Diagnosis Comments LAB RESULT 03/12/2024 4:09 PM EDT documented in this encounter Results * LAB RESULT (03/12/2024 4:09 PM EDT) Jhoana Wilkins MD HX AMB PROCEDURES Final Result documented in this encounter Visit Diagnoses Not on filedocumented in this encounter Care Teams Metal Roofer Relationship Specialty Start Date End Date Radha Martel PA-C [address] [place] [address] PCP - General Internal Medicine 02/24/24 Vinod Robles MD [address] [place] [address] Primary Administrative Dietitian Cardiovascular Disease 09/02/24 documented as of this encounter
--- OUTSIDE RECORDS SUMMARY | 2025-02-16 13:51 | XMS_ITS | Encounter Summary ---
Author Organization [facility] Address [address] [place] [address] Care Team Providers Care Working Supervisor Name Role Phone Martha Grey APRN Primary Care Provider Unav ailable Mike Burns NP Primary Care Provider Unavail able Martha Grey APRN Primary Care Provider Unav ailable Encounter Details Date Type Department Care Team Description 02/08/2021 Past Due Accounts Clerk Report Medical Records [address] [place] [address] Social History Tobacco Use Types Packs/Day Years [...] on filedocumented in this encounter Care Teams Working Supervisor Relationship Specialty Start Date End Date Martha Grey APRN PCP - General Internal Medicine 01/20/20 05/16/22 Mike Burns NP PCP - General Family Practice 05/17/22 11/20/22 Martha Grey APRN PCP - General Internal Medicine 11/21/22 documented as of this encounter
--- OUTSIDE RECORDS SUMMARY | 2025-02-16 13:51 | XMS_ITS | Encounter Summary ---
Author Organization [facility] Address [address] [place] [address] Care Team Providers Care Steward/Stewardess Second Class Name Role Phone Siddhartha Oakes MD Primary Care Provider [phone] Martha Grey APRN Primary Care Provider Unav ailable Martha Grey APRN Primary Care Provider Unav ailable Mike Burns NP Primary Care Provider Unavail able Martha Grey APRN Primary Care Provider Unav ailable Reason for Visit * Reason Onset Date Comments medication problems 10/09/2019 venlafaxine (EFFEXOR-XR) 37.5 MG 24 hr capsule Encounter Details Date Type Department Care Team Description 10/09/2019 Telephone Adult Medicine [address] [address] Siddhartha Oakes MD [address] [place] [address] medication problems (venlafaxine (EFFEXOR-XR) 37.5 MG 24 [...] and instrcueted patient to reach out to [facility] to see what she should start. Brenda [...] on filedocumented in this encounter Care Teams Steward/Stewardess Second Class Relationship Specialty Start Date End Date Siddhartha Oakes MD [address] [place] [address] PCP - General Internal Medicine 05/06/19 01/12/20 Martha Grey APRN [address] [place] [address] PCP - General Internal Medicine 01/13/20 01/19/20 Martha Grey APRN [address] [place] [address] PCP - General Internal Medicine 01/20/20 05/16/22 Mike Burns NP [address] [place] [address] PCP - General Family Practice 05/17/22 11/20/22 Martha Grey APRN [address] [place] [address] PCP - General Internal Medicine 11/21/22 documented as of this encounter
--- OUTSIDE RECORDS SUMMARY | 2025-02-16 13:51 | XMS_ITS | Encounter Summary ---
Author Organization [facility] Address [address] [place] [address] Care Team Providers Care Lead Cytogenetic Technologist Name Role Phone Emerald Yu MD Primary Care Provider Unavailable Gio Rendonabela DO Primary Care Pro vider Unavailable Emerald Yu MD Primary Care Provider Unavailable Gio Rendonabela DO Primary Care Pro vider Unavailable Siddhartha Oakes MD Primary Care Provider [phone] Martha Grey APRN Primary Care Provider Unav ailable Martha Grey APRN Primary Care Provider Unav ailable Mike Burns NP Primary Care Provider Unavail able Martha Grey APRN Primary Care Provider Unav ailable Encounter Details Date Type Department Care Team Description 03/29/2014 Hospital Medical Records [address] [place] [address] Kali Quiroga MD Social History Tobacco Use [...] filedocumented in this encounter Care Teams Lead Cytogenetic Technologist Relationship Specialty Start Date End Date Emerald Yu MD PCP - General Internal Medicine 12/18/1302/04 Susannah Rendon DO PCP - General Internal Medicine 02/14/15 05/09/15 Emerald Yu MD PCP - General Internal Medicine 05/10/1506/08 Susannah Rendon DO PCP - General Internal Medicine 07/01/15 05/05/19 Siddhartha Oakes MD [address] [place] [address] PCP - General Internal Medicine 05/06/19 01/12/20 Martha Grey APRN [address] [place] [address] PCP - General Internal Medicine 01/13/20 01/19/20 Martha Grey APRN [address] [place] [address] PCP - General Internal Medicine 01/20/20 05/16/22 Mike Burns NP [address] [place] [address] PCP - General Family Practice 05/17/22 11/20/22 Martha Grey APRN [address] [place] [address] PCP - General Internal Medicine 11/21/22 documented as of this encounter
--- OUTSIDE RECORDS SUMMARY | 2025-02-16 13:51 | XMS_ITS | Encounter Summary ---
Author Organization [facility] Address [address] [place] [address] Care Team Providers Care Surgical Oncologist Name Role Phone Radha Martel PA-C Primary Care Provi mckenna Vinod Robles MD Unavailable [phone] Encounter Details Date Type Department Care Team (Late st Contact Info) Description 03/10/2024 Scanned Document [facility] Physicians Department Of Hematology/Oncology [place] [address] [place] [address] [place] [facility] [address] [place] [phone] Jhoana Wilkins MD [address] [facility] [address] [place] [address] Social History Tobacco Use Types Packs/Day Years [...] Description 04/01/2025 9:45 AM EDT Office Visit [facility] Department of Cardiology [place] [address] [place] [phone] Antonio Puente MD [address] [place] [address] 04/13/2025 8:30 AM EDT [facility] Visit [facility] [address] [address] Theodora Yap APRN [address] [address] 05/20/2025 3:45 PM EDT Office Visit [address] [place] [phone] Radha Martel PA-C [address] [place], [place] [phone] 05/27/2025 8:00 AM EDT Office Visit [facility] [address] [address] Raphael Mcdaniel MD [address] [place] [address] 07/22/2025 9:20 AM EDT Office Visit [facility] Department Of Hematology/Oncology [address] [place] [phone] Jhoana Wilkins MD [address] [facility] [address] [place] [address] documented as of this encounter Visit Diagnoses Not on filedocumented in this encounter Care Teams Surgical Oncologist Relationship Specialty Start Date End Date Radha Martel PA-C [address] [place] [address] PCP - General Internal Medicine 02/24/24 Vinod Robles MD [address] [place] [address] Primary Color Laboratory Technician Cardiovascular Disease 09/02/24 documented as of this encounter
--- OUTSIDE RECORDS SUMMARY | 2025-02-16 13:51 | XMS_ITS | Encounter Summary ---
Author Organization [facility] Address [address] [place] [address] Care Team Providers Care Rn Ccu Name Role Phone Susannah Rendon DO Primary Care Pro vider Unavailable Siddhartha Oakes MD Primary Care Provider [phone] Martha Grey APRN Primary Care Provider Unav ailable Martha Grey APRN Primary Care Provider Unav ailable Mike Burns NP Primary Care Provider Unavail able Martha Grey APRN Primary Care Provider Unav ailable Encounter Details Date Type Department Care Team Description 01/30/2017 Refill OBGYN - [place] [address] [place], [place] [phone] de Ariel Anderson MD [address] [place] [address] Social History Tobacco Use Types [...] on filedocumented in this encounter Care Teams Rn Ccu Relationship Specialty Start Date End Date Susannah Rendon DO PCP - General Internal Medicine 07/01/15 05/05/19 Siddhartha Oakes MD [address] [place] [address] PCP - General Internal Medicine 05/06/19 01/12/20 Martha Grey APRN [address] [place] [address] PCP - General Internal Medicine 01/13/20 01/19/20 Martha Grey APRN [address] [place] [address] PCP - General Internal Medicine 01/20/20 05/16/22 Mike Burns NP [address] [place] [address] PCP - General Family Practice 05/17/22 11/20/22 Martha Grey APRN [address] [place] [address] PCP - General Internal Medicine 11/21/22 documented as of this encounter
--- OUTSIDE RECORDS SUMMARY | 2025-02-16 13:51 | XMS_ITS | Encounter Summary ---
Author Organization [facility] Address [address] [place] [address] Care Team Providers Care Trading Floor Operator Name Role Phone Emerald Yu MD Primary Care Provider Unavailable Oj Boyceo, Susannah DO Primary Care Pro vider Unavailable Emerald Yu MD Primary Care Provider Unavailable Oj Rangel, Susannah DO Primary Care Pro vider Unavailable Siddhartha Oakes MD Primary Care Provider [phone] Martha Grey APRN Primary Care Provider Unav ailable Martha Grey APRN Primary Care Provider Unav ailable Mike Burns NP Primary Care Provider Unavail able Martha Grey APRN Primary Care Provider Unav ailable Encounter Details Date Type Department Care Team Description 08/09/2014 Transfer Records Medical Records [address] [place] [address] Surgical, [facility] Social History Tobacco Use Types Packs/Day Years [...] on filedocumented in this encounter Care Teams Trading Floor Operator Relationship Specialty Start Date End Date Emerald Yu MD PCP - General Internal Medicine 12/18/1302/04 Susannah Rendon DO PCP - General Internal Medicine 02/14/15 05/09/15 Emerald Yu MD PCP - General Internal Medicine 05/10/1506/08 Susannah Rendon DO PCP - General Internal Medicine 07/01/15 05/05/19 Siddhartha Oakes MD [address] [place] [address] PCP - General Internal Medicine 05/06/19 01/12/20 Martha Grey APRN [address] [place] [address] PCP - General Internal Medicine 01/13/20 01/19/20 Martha Grey APRN [address] [place] [address] PCP - General Internal Medicine 01/20/20 05/16/22 Mike Burns NP [address] [place] [address] PCP - General Family Practice 05/17/22 11/20/22 Martha Grey APRN [address] [place] [address] PCP - General Internal Medicine 11/21/22 documented as of this encounter
--- OUTSIDE RECORDS SUMMARY | 2025-02-16 13:51 | XMS_ITS | Encounter Summary ---
Author Organization [facility] Address [address] [place] [address] Care Team Providers Care Accounting Manager Name Role Phone Martha Grey APRN Primary Care Provider Unav ailable Mike Burns NP Primary Care Provider Unavail able Martha Grey APRN Primary Care Provider Unav ailable Reason for Referral * EXTERNAL (Routine) - Authorized/Booked Specialty Diagnoses / Procedures Referred By Contac t Referred To Contact PAIN MANAGEMENT / Pain Management Procedures REFERRAL TO PAIN MANAGEMENT Levy Rosenberg PA-C [facility] External Pain Man Referral ID Status Reason Start Date Expiration Date V isits Requested Visits Authorized [id number] Authorized/B ooked 07/21/2021 10/24/2021 1 1 Encounter Details Date Type Department Care Team Description 07/21/2021 Orders Only Physiatry - [address] [address] Levy Rosenberg PA-C Lumbar radiculitis (Primary Dx); Lumbar spondylosis Social History Tobacco Use Types Packs/Day Years [...] have Coronavirus / COVID-19? No / Unsure 07/19/2021 1:08 PM EDT documented as of this encounter Plan of Treatment Not on file documented as of this encounter Visit Diagnoses Diagnosis Lumbar radiculitis- Primary Thoracic or lumbosacral neuritis or radiculitis, unspecified Lumbar spondylosis Lumbosacral spondylosis without myelopathy documented in this encounter Care Teams Accounting Manager Relationship Specialty Start Date End Date Martha Grey APRN PCP - General Internal Medicine 01/20/20 05/16/22 Mike Burns NP PCP - General Family Practice 05/17/22 11/20/22 Martha Grey APRN PCP - General Internal Medicine 11/21/22 documented as of this encounter
--- OUTSIDE RECORDS SUMMARY | 2025-02-16 13:51 | XMS_ITS | Encounter Summary ---
Author Organization [facility] Address [address] [place] [address] Care Team Providers Care Information Systems Project Manager Name Role Phone Siddhartha Oakes MD Primary Care Provider [phone] Martha Grey APRN Primary Care Provider Unav ailable Martha Grey APRN Primary Care Provider Unav ailable Mike Burns NP Primary Care Provider Unavail able Martha Grey APRN Primary Care Provider Unav ailable Encounter Details Date Type Department Care Team Description 12/01/2019 [facility] Medical Records [address] [place] [address] Jian Pimentel DO Social History Tobacco Use [...] on filedocumented in this encounter Care Teams Information Systems Project Manager Relationship Specialty Start Date End Date Siddhartha Oakes MD [address] [place] [address] PCP - General Internal Medicine 05/06/19 01/12/20 Martha Grey APRN [address] [place] [address] PCP - General Internal Medicine 01/13/20 01/19/20 Martha Grey APRN [address] [place] [address] PCP - General Internal Medicine 01/20/20 05/16/22 Mike Burns NP [address] [place] [address] PCP - General Family Practice 05/17/22 11/20/22 Martha Grey APRN [address] [place] [address] PCP - General Internal Medicine 11/21/22 documented as of this encounter
--- OUTSIDE RECORDS SUMMARY | 2025-02-16 13:51 | XMS_ITS | Encounter Summary ---
Author Organization [facility] Address [address] [place] [address] Care Team Providers Care Farmworkers Name Role Phone Susannah Rendon DO Primary Care Pro vider Unavailable Siddhartha Oakes MD Primary Care Provider [phone] Martha Grey APRN Primary Care Provider Unav ailable Martha Grey APRN Primary Care Provider Unav ailable Mike Burns NP Primary Care Provider Unavail able Martha Grey APRN Primary Care Provider Unav ailable Reason for Visit * Reason Onset Date Comments refill request 12/24/2016 Encounter Details Date Type Department Care Team Description 12/24/2016 Refill OBGYN - [place] [address] [place] [address] Ariel Varner MD [address] [place] [address] refill request Social History Tobacco Use Types [...] encounter Miscellaneous Notes * Telephone Encounter - Mariana Lopez - 12/24/2016 9:22 AM EDT WHEN WAS THE PATIENTS LAST ANNUAL ROAD FREIGHT CONDUCTOR EXAM? 05/10/15 Does patient have an upcoming appointment? Yes 01/07/17 (THE MEDICATION REQUESTED IS ON THE MED LIST ABOVE) Did you check the Pharmacy information above?: YES Indicate how soon the patient needs the script: BY THE END OF THE DAY Patient would like script to be: E-PRESCRIBED/FAXED TO PHARMACY Is the doctor here today?: NO Can the message wait until the doctor returns?: NO Has the patient been told that the prescription will not be filled until the end of the day? NO Payor: [employer] INCLUDE 234 BEDS AT THE [facility] FFS / Plan: FFS HMO $0 [place] [id number] / Product Type: MEDICAID RISK documented in this encounter Plan of Treatment Not on file documented as of this encounter Visit Diagnoses Not on filedocumented in this encounter Care Teams Farmworkers Relationship Specialty Start Date End Date Susannah Rendon DO PCP - General Internal Medicine 07/01/15 05/05/19 Siddhartha Oakes MD [address] [place] [address] PCP - General Internal Medicine 05/06/19 01/12/20 Martha Grey APRN [address] [place] [address] PCP - General Internal Medicine 01/13/20 01/19/20 Martha Grey APRN [address] [place] [address] PCP - General Internal Medicine 01/20/20 05/16/22 Mike Burns NP [address] [place] [address] PCP - General Family Practice 05/17/22 11/20/22 Martha Grey APRN [address] [place] [address] PCP - General Internal Medicine 11/21/22 documented as of this encounter
--- OUTSIDE RECORDS SUMMARY | 2025-02-16 13:51 | XMS_ITS | Encounter Summary ---
Author Organization [facility] Address [address] [place] [address] Care Team Providers Care Marketing Forecaster Name Role Phone Siddhartha Oakes MD Primary Care Provider [phone] Martha Grey APRN Primary Care Provider Unav ailable Martha Grey APRN Primary Care Provider Unav ailable Mike Burns NP Primary Care Provider Unavail able Martha Grey APRN Primary Care Provider Unav ailable Encounter Details Date Type Department Care Team Description 09/21/2019 [facility] Medical Records [address] [place] [address] Abstract, Provider Social History Tobacco Use Types [...] on filedocumented in this encounter Care Teams Marketing Forecaster Relationship Specialty Start Date End Date Siddhartha Oakes MD [address] [place] [address] PCP - General Internal Medicine 05/06/19 01/12/20 Martha Grey APRN [address] [place] [address] PCP - General Internal Medicine 01/13/20 01/19/20 Martha Grey, PANFILO [address] [place] [address] PCP - General Internal Medicine 01/20/20 05/16/22 Mkie Burns NP [address] [place] [address] PCP - General Family Practice 05/17/22 11/20/22 Martha Grey APRN [address] [place] [address] PCP - General Internal Medicine 11/21/22 documented as of this encounter
--- OUTSIDE RECORDS SUMMARY | 2025-02-16 13:51 | XMS_ITS | Encounter Summary ---
Author Organization [facility] Address [address] [place] [address] Care Team Providers Care Associate Director Of Sales Name Role Phone Emerald Yu MD Primary Care Provider Unavailable Oj Boyceo, Susannah DO Primary Care Pro vider Unavailable Emerald Yu MD Primary Care Provider Unavailable Krakoopal Colbarringtono, Susannah DO Primary Care Pro vider Unavailable Siddhartha Oakes MD Primary Care Provider [phone] Martha Grey APRN Primary Care Provider Unav ailable Martha Grey APRN Primary Care Provider Unav ailable Mike Burns NP Primary Care Provider Unavail able Martha Grey APRN Primary Care Provider Unav ailable Reason for Visit * Reason Onset Date Comments Error 2014 Encounter Details Date Type Department Care Team Description 2014 [place] [facility] [place] [address] [address] Eliseo Rodríguez MD Error Social History Tobacco [...] performed: 01/08 [facility] Who ordered this test?: DR RODRÍGUEZ Is [...] filedocumented in this encounter Care Teams Associate Director Of Sales Relationship Specialty Start Date End Date Emerald Yu MD PCP - General Internal Medicine 12/18/1302/04 Susannah Rendon DO PCP - General Internal Medicine 02/14/15 05/09/15 Emerald Yu MD PCP - General Internal Medicine 05/10/1506/08 Susannah Rendon DO PCP - General Internal Medicine 07/01/15 05/05/19 Siddhartha Oakes MD [address] [place] [address] PCP - General Internal Medicine 05/06/19 01/12/20 Martha Grey APRN [address] [place] [address] PCP - General Internal Medicine 01/13/20 01/19/20 Martha Grey APRN [address] [place] [address] PCP - General Internal Medicine 01/20/20 05/16/22 Mike Burns NP [address] [place] [address] PCP - General Family Practice 05/17/22 11/20/22 Martha Grey APRN [address] [place] [address] PCP - General Internal Medicine 11/21/22 documented as of this encounter
--- OUTSIDE RECORDS SUMMARY | 2025-02-16 13:51 | XMS_ITS | Encounter Summary ---
Author Organization [facility] Address [address] [place] [address] Care Team Providers Care Branch Office Administrator Name Role Phone Martha Grey APRN Primary Care Provider Unav ailable Mike Burns NP Primary Care Provider Unavail able Martha Grey APRN Primary Care Provider Unav ailable Encounter Details Date Type Department Care Team Description 09/22/2021 Refill OBGYN - [place] [address] [place] [address] Gaby Unger, CORAL [address] [place] [address] Social History Tobacco Use Types Packs/Day Years [...] unspecified documented in this encounter Care Teams Branch Office Administrator Relationship Specialty Start Date End Date Martha Grey APRN PCP - General Internal Medicine 01/20/20 05/16/22 Mike Burns NP PCP - General Family Practice 05/17/22 11/20/22 Martha Grey APRN PCP - General Internal Medicine 11/21/22 documented as of this encounter
--- OUTSIDE RECORDS SUMMARY | 2025-02-16 13:51 | XMS_ITS | Encounter Summary ---
Author Organization [facility] Address [address] [place] [address] Care Team Providers Care Scow Hand Name Role Phone Susannah Rendon DO Primary Care Pro vider Unavailable Siddhartha Oakes MD Primary Care Provider [phone] Martha Grey APRN Primary Care Provider Unav ailable Martha Grey APRN Primary Care Provider Unav ailable Mike Burns NP Primary Care Provider Unavail able Martha Grey APRN Primary Care Provider Unav ailable Encounter Details Date Type Department Care Team Description 12/10/2016 Walk In Clinic Visit Medical Records [address] [place] [address] Social History Tobacco Use Types Packs/Day Years [...] on filedocumented in this encounter Care Teams Scow Hand Relationship Specialty Start Date End Date [place] Colasacco, Susannah, DO PCP - General Internal Medicine 07/01/15 05/05/19 Siddhartha Oakes MD [address] [place] [address] PCP - General Internal Medicine 05/06/19 01/12/20 Martha Grey APRN [address] [place] [address] PCP - General Internal Medicine 01/13/20 01/19/20 Martha Grey APRN [address] [place] [address] PCP - General Internal Medicine 01/20/20 05/16/22 Mike Burns NP [address] [place] [address] PCP - General Family Practice 05/17/22 11/20/22 Martha Grey APRN [address] [place] [address] PCP - General Internal Medicine 11/21/22 documented as of this encounter
--- OUTSIDE RECORDS SUMMARY | 2025-02-16 13:51 | XMS_ITS | Encounter Summary ---
Author Organization [facility] Address [address] [place] [address] Care Team Providers Care Mandolin Repairer Name Role Phone Martha Grey APRN Primary Care Provider Unav ailable Mike Burns NP Primary Care Provider Unavail able Martha Grey APRN Primary Care Provider Unav ailable Reason for Visit * Reason Onset Date Comments Training Director Feedback 09/12/2021 Alejandrina Garrido s Encounter Details Date Type Department Care Team Description 09/12/2021 Telephone Adult Medicine - [address] [address] Martha Grey APRN Training Director Feedback (Alejandrina Saez) Social History Tobacco Use [...] the patient have today? [facility] [employer] [phone] Effective 07/07/09: BCBS will not retro referral [...] insurance must be obtained and registered in [facility] or their referral can not be [...] YES Is this visit:Initial Visit Address of Specialist:[address] [place] [address] Phone # of Specialist:[phone] Fax #: (if applicable):[phone] Does patient have an appointment scheduled?: YES Date of appointment- (including a retro-request): 09/20/21 Is this appointment related to: Not MVA, WC or Surgery related documented in this encounter Plan of Treatment Not on file documented as of this encounter Visit Diagnoses Not on filedocumented in this encounter Care Teams Mandolin Repairer Relationship Specialty Start Date End Date Martha Grey APRN PCP - General Internal Medicine 01/20/20 05/16/22 Mike Burns NP PCP - General Family Practice 05/17/22 11/20/22 Martha Grey APRN PCP - General Internal Medicine 11/21/22 documented as of this encounter
--- OUTSIDE RECORDS SUMMARY | 2025-02-16 13:51 | XMS_ITS | Clinical Summary ---
Author Organization [facility] Address [address] [place] [address] Care Team Providers Care Supervisor Orchard Name Role Phone Radha Martel PA-C Primary [...] Encounters Date Type Department Care Team Description 02/16/2025 8:15 AM EDT Office Visit Orthopedic [address] [phone] Raphael Mcdaniel MD Low back pain, unspecified back pain laterality, unspecified chronicity, unspecified whether sciatica present (Primary Dx); Cervicalgia 02/10/2025 Scanned Document [facility] [address] [place] [address] Neurology, Scan 02/08/2025 Scanned Document [facility] [address] [phone] Raphael Mcdaniel MD 02/08/2025 Orders Only [facility] [address] [phone] Raphael Mcdaniel MD Low back pain, unspecified back pain laterality, unspecified chronicity, unspecified whether sciatica present (Primary Dx) 01/27/2025 Scanned Document [facility] [address] [address] Raphael Mcdaniel MD 01/26/2025 9:00 AM EDT [facility] [address] [address] Rodo Richards MD Pain in right ankle and joints of right foot (Primary Dx) 01/25/2025 9:00 AM EDT Ancillary Procedure [facility] [address] [phone] Raphael Mcdaniel MD 01/25/2025 8:30 AM EDT [facility] [address] [phone] Raphael Mcdaniel MD Cervicalgia (Primary Dx); Low back pain, unspecified back pain laterality, unspecified chronicity, unspecified whether sciatica present 01/25/2025 8:25 AM EDT Ancillary [facility] [address] [phone] Raphael Mcdaniel MD 01/25/2025 Orders Only [facility] [address] [address] Yessica Aden MD 01/20/2025 11:40 AM EDT Telemedicine [facility] Department Of Hematology/Oncology [place] [address] [address] [place] [phone] Jhoana Wilkins MD Bleeding diathesis (Primary Dx); Bipolar 2 disorder, major depressive episode (HCC); Attention deficit disorder; Anemia; S/P gastric sleeve procedure; Morbid obesity (HCC); History of tobacco use; Fibromyalgia; Fatty liver disease, nonalcoholic; Focal nodular hyperplasia of liver 01/19/2025 1:30 PM EDT [facility] [address] [place] [address] Theodora Yap APRN Pain in right ankle and joints of right foot (Primary Dx) 01/19/2025 1:25 PM EDT Ancillary Procedure [facility] [address] [place] [address] 01/15/2025 Orders Only [address] [place] [address] Radha Martel PA-C Chronic bilateral low back pain, unspecified whether sciatica present (Primary Dx) 2025 Telephone [facility] [address] [facility] [address] [place] [address] Radha Martel PA-C 01/06/2025 11:30 AM EDT Office Visit [facility] 100 [facility] [address] [place] [address] Radha Martel PA-C Chronic bilateral low back pain, unspecified whether sciatica present (Primary Dx); Muscle spasm; Fibromyalgia; Acute right ankle pain; Gastroesophageal reflux disease, unspecified whether esophagitis present; Palpitations; Memory change 01/06/2025 Travel 12/29/2024 8:00 AM EDT Consult [facility] Department of Physiatry [place] [address] [facility] [address] [place] [phone] Karlene العراقي MD Lumbar facet joint pain (Primary Dx); Myalgia; Spasm of both trapezius muscles; Lumbar paraspinal muscle spasm 12/29/2024 Travel 12/24/2024 10:40 AM EDT Office Visit [facility] Department Of Hematology/Oncology [place] [address] [address] [place] [phone] Jhoana Wilkins MD Bleeding diathesis (Primary Dx); Anemia; B12 deficiency; Bipolar 2 disorder, major depressive episode (HCC); Fe deficiency anemia; Morbid obesity ([facility]); S/P gastric sleeve procedure 12/16/2024 Orders Only [facility] [address] [facility] [address] [place] [phone] Radha Martel PA-C Fibromyalgia (Primary Dx); Trigger finger, unspecified finger, unspecified laterality 12/14/2024 8:30 AM EDT Office Visit [facility] Department of Cardiology [place] [address] [facility] [address] [place] [address] Antonio Puente MD Heart palpitations (Primary Dx); Syncope and collapse; Morbid obesity ([facility]); S/P repair of PDA 12/09/2024 Orders Only [facility] [address] [phone] Radha Martel PA-C Fibromyalgia (Primary Dx) 12/08/2024 Orders Only [facility] [address] [phone] Radha Martel PA-C Fibromyalgia (Primary Dx) 11/25/2024 8:00 AM EST Office Visit [facility] Dermatology [address] [phone] Radha Martel PA-C Naka, Fludiona, MD Cutaneous skin tags (Primary Dx); Lentigines; Xerosis cutis; Abreu angioma; Multiple pigmented nevi; Screening for skin cancer; Sun-damaged skin; Pruritus; Other specified counseling; Disturbance of skin sensation; Seborrheic keratoses 11/25/2024 Travel 11/24/2024 11:00 AM EST Office Visit [address] [phone] Radha Martel PA-C Fibromyalgia (Primary Dx); B12 deficiency; Iron deficiency anemia, unspecified iron deficiency anemia type; Recurrent sinus infections; Incontinence of feces, unspecified fecal incontinence type; Syncope and collapse; Frequent infections 11/24/2024 Travel 11/21/2024 2:00 PM EST Telemedicine [facility] [address] [phone] Jon Pleitez MD Patel, Arti J, LIBBY Bacterial respiratory infection (Primary Dx) 11/21/2024 Travel [...] Description 04/01/2025 9:45 AM EDT Office Visit [facility] Department of Cardiology [place] [address] [facility] [address] [place] [address] Antonio Puente MD 160 [facility] 100 [place] [address] 04/13/2025 8:30 AM EDT [facility] [address] [address] Theodora Yap APRN [address] [address] 05/20/2025 3:45 PM EDT Office Visit [facility] 100 [facility] [address] [place] [address] Radha Martel PA-C 100 [place] [address] 05/27/2025 8:00 AM EDT [facility] [address] [address] Raphael Mcdaniel MD 31 [place] [address] 07/22/2025 9:20 AM EDT Office Visit [facility] Department Of Hematology/Oncology [place] [address] [place] [address] Jhoana Wilkins MD [address] [place] [address] Health Maintenance Due Date Last Done Comments Pap Smear (Ages 21-65) 01/10/2013 Pneumococcal Vaccine: Pediatric (0-5 Years) and At-Risk Patients (6 to 49 Years) (2 of 2 - PCV) 06/02/2021 06/02/2020 COVID-19 Vaccine (1 - season) 2024 Influenza Vaccine 05/07/2025 12/26/2024, , [...] Name Priority Date/Time Associated Diagnosis Comments MRI LUMBAR SPINE W/O CONTRAST Routine 02/11/2025 6:07 PM EDT Low back pain, unspecified back pain laterality, unspecified chronicity, unspecified whether sciatica present MRI CERVICAL SPINE W/O CONTRAST Routine 02/05/2025 [...] Bleeding diathesis CARDIAC EVENT/LOOP MONITOR RECORD/SCN ANLYSIS/REPORT (58092) Routine 11/30/2024 9:51 AM EST Heart palpitations ECHOCARDIOGRAM (TTE) COMPREHENSIVE (CONTRAST PRN) Routine 11/30/2024 8:59 AM EST Heart palpitations S/P repair of PDA from Last 3 Months Results * MRI Lumbar spine w/o contrast (02/11/2025 6:07 PM EDT) Anatomical Region Laterality Modality L-spine Magnetic Resonan ce 02/11/2025 5:30 PM EDT 02/11/2025 5:30 PM EDT Impressions 02/14/2025 12:28 AM EDT No significant lumbar spine abnormalities. Electronically signed by: Margarito Sommer MD 02/14/2025 12:28 AM EDT Thank you for referring your patient to us, Margarito Sommer MD [phone] (Electronically Signed - 02/14/2025 00:28) Narrative 02/14/2025 12:28 AM EDT EXAMINATION: MRI LUMBAR SPINE WITHOUT CONTRAST CLINICAL INDICATION: Female, 35 years old. Back pain. Numbness TECHNIQUE: Multiplanar multisequence MR images were obtained of the lumbar spine without intravenous contrast. Unless otherwise specified, incidental findings do not require dedicated imaging follow-up. COMPARISON: none FINDINGS: ?? For purposes of this dictation, it is assumed that there are 5 non rib-bearing lumbar type vertebrae, and the most caudal fully segmented lumbar vertebra is labeled L5. ?? ALIGNMENT: The lumbar spine has normal alignment. BONE: Vertebral bodies are normal in height. There is a normal marrow signal pattern. CORD: No abnormal signal in the cord. The conus medullaris terminates at a normal level. The nerve roots of the cauda equina appear normal. SOFT TISSUE: Mild posterior paraspinal muscle atrophy. EVALUATION OF THE INDIVIDUAL LEVELS: L1-2: Disc is normal in height and signal intensity. No significant spinal canal or neural foraminal stenosis. L2-3: Disc is normal in height and signal intensity. No significant spinal canal or neural foraminal stenosis. L3-4: Disc is normal in height and signal intensity. No significant spinal canal or neural foraminal stenosis. Mild facet arthrosis L4-5: Disc is normal in height and signal intensity. No significant spinal canal or neural foraminal stenosis. L5-S1: Disc is normal in height and signal intensity. No significant spinal canal or neural foraminal stenosis. Mild facet arthrosis Procedure Note Margarito Sommer MD - 02/14/2025 EXAMINATION: MRI LUMBAR SPINE WITHOUT CONTRAST CLINICAL INDICATION: Female, 35 years old. Back pain. Numbness TECHNIQUE: Multiplanar multisequence MR images were obtained of the lumbarspine without intravenous contrast. Unless otherwise specified, incidentalfindings do not require dedicated imaging follow-up. COMPARISON: none FINDINGS: For purposes of this dictation, it is assumed that there are 5 nonrib-bearing lumbar type vertebrae, and the most caudal fully segmentedlumbar vertebra is labeled L5. ALIGNMENT: The lumbar spine has normal alignment. BONE: Vertebral bodies are normal in height. There is a normal marrowsignal pattern. CORD: No abnormal signal in the cord. The conus medullaris terminates at anormal level. The nerve roots of the cauda equina appear normal. SOFT TISSUE: Mild posterior paraspinal muscle atrophy. EVALUATION OF THE INDIVIDUAL LEVELS: L1-2: Disc is normal in height and signal intensity. No significant spinalcanal or neural foraminal stenosis. L2-3: Disc is normal in height and signal intensity. No significant spinalcanal or neural foraminal stenosis. L3-4: Disc is normal in height and signal intensity. No significant spinalcanal or neural foraminal stenosis. Mild facet arthrosis L4-5: Disc is normal in height and signal intensity. No significant spinalcanal or neural foraminal stenosis. L5-S1: Disc is normal in height and signal intensity. No significantspinal canal or neural foraminal stenosis. Mild facet arthrosis IMPRESSION: No significant lumbar spine abnormalities. Electronically signed by: Margarito Sommer MD 02/14/2025 12:28 AM EDTWorkstation:[id number] Thank you for referring your patient to us, Margarito Sommer MD [phone] (Electronically Signed - 02/14/2025 00:28) Raphael Mcdaniel MD IM MRI ORDERABLES Final Result * MRI Cervical spine w/o contrast (02/05/2025 7:35 AM EDT) Anatomical Region Laterality Modality C-spine Magnetic Resonan ce 02/05/2025 7:00 AM EDT 02/05/2025 7:00 AM EDT Impressions 02/05/2025 8:51 AM EDT Small multilevel disc protrusions. Electronically signed by: ??Ada Packer MD ??02/05/2025 08:51 AM EDT RP Thank you for referring your patient to us, Ada Packer MD [phone] (Electronically Signed - 02/05/2025 08:51) Narrative 02/05/2025 [...] Packer MD 02/05/2025 08:51 AM EDT RPWorkstation: [id number] Thank you for referring your patient to us, Ada Packer MD [phone] (Electronically Signed - 02/05/2025 08:51) Raphael PENA MRI ORDERABLES Final Result * MRI External Result (01/25/2025 9:03 AM EDT) Anatomical Region Laterality Modality Magnetic Resonan ce us External Provider MD PENA MRI ORDERABLES Final Re sult * XR Cervical spine w/ flex+ext 4 views (01/25/2025 9:02 AM EDT) Narrative [facility] - 01/25/2025 9:02 AM EDT [facility] and images reviewed by orthopedic provider. ??Any findings are documented within ambulatory encounter note on date of service. Raphael PENA DIAGNOSTIC IMAGING ORDERABLE S Final Result Performing Organization Address [facility] de Phone Number OAH * XR Lumbar spine complete 4+ views (01/25/2025 8:31 AM EDT) Narrative [facility] - 01/25/2025 8:31 AM EDT [facility] and images reviewed by orthopedic provider. ??Any findings are documented within ambulatory encounter note on date of service. Raphael PENA DIAGNOSTIC IMAGING ORDERABLE S Final Result Performing Organization Address [facility] de Phone Number OAH * XR Foot 3+ views-Right (01/19/2025 1:32 PM EDT) Narrative [facility] - 01/19/2025 1:32 PM EDT [facility] and images reviewed by orthopedic provider. ??Any findings are documented within ambulatory encounter note on date of service. Theodora PENA DIAGNOSTIC IMAGING OR DERABLES Final Result Performing Organization Address [facility] de Phone Number OAH * XR Ankle 3+ views-Right (01/19/2025 1:32 PM EDT) Narrative [facility] - 01/19/2025 1:32 PM EDT [facility] and images reviewed by orthopedic provider. ??Any findings are documented within ambulatory encounter note on date of service. Theodora PENA DIAGNOSTIC IMAGING OR DERABLES Final Result Performing Organization Address [facility] de Phone Number OAH * VITAMIN B12 AND FOLATE (12/24/2024 11:25 AM EDT) Vitamin B12 390 211 - 946 pg/mL [facility] Folate, Serum 5.5 3.1 - 17.5 ng/mL [facility] Blood Blood specimen / Unknown 12/24/2024 11:25 AM EDT 12/24/2024 4:06 PM EDT us Jhoana Wilkins MD LAB BLOOD ORDERABLES Final Resul t Performing Organization Address City/[facility] Co de Phone Number [address] [address], [place] * Von Willebrand Factor Multi. (12/24/2024 [...] ORDERABLES Final Resul t Performing Organization Address City/State/[facility] Co de Phone Number UY * FACTOR VIII ACTIVITY, CHROMOGENIC (12/24/2024 11:20 AM EDT) Factor Viii Activity 92 56 - 140 % [employer] 12/24/2024 11:2 0 AM EDT 12/24/2024 3:50 PM EDT us Jhoana Wilkins MD GENETIC TESTING Final Result LAB [facility] [address] [place] [address] * Iron and Total Iron Binding Capacity (12/24/2024 11:20 AM EDT) Pathologist [facility] Iron 75 45 - 160 ug/dL [facility] UIBC 235 110 - 370 ug/dL [facility] Total Iron Binding Capacity 310 228 - 428 ug/dL [facility] Iron Sat 24 11 - 50 % [facility] Blood Blood specimen / Unknown 12/24/2024 11:20 AM EDT 12/24/2024 3:50 PM EDT Jhoana Wilkins MD LAB BLOOD ORDERABLES Final Resul t [facility] [address] [place] [address] * VON WILLEBRAND FACTOR ACTIVITY (12/24/2024 11:20 AM EDT) [facility] Von Willebrand Factor Activity 64 50 - 200 % [facility] 12/24/2024 11:2 0 AM EDT 12/24/2024 3:50 PM EDT Jhoana Wilkins MD LAB BLOOD ORDERABLES Final Resul t Performing Organization Address City/State/[facility] Co de Phone Number [employer] [address] * (ABNORMAL) Complete Blood Count, with Differential (12/24/2024 11:20 AM EDT) Pathologist [facility] WBC 9.97 4.00 - 11.00 Thousand/ uL [...] MD LAB BLOOD ORDERABLES Final Resul t [facility] [address] [place] [address] * Partial Thromboplastin Time (PTT) (12/24/2024 11:20 AM EDT) PTT 27.9 24.0 - 33.0 SECONDS [facility] Blood Blood specimen / Unknown 12/24/2024 11:20 AM EDT 12/24/2024 3:50 PM EDT us Jhoana Wilkins MD LAB BLOOD ORDERABLES Final Resul t Performing Organization Address [facility] de Phone Number [facility] [address] [place] [address] * PROTIME-INR (12/24/2024 11:20 AM EDT) Prothrombin Time 10.9 9.3 - 11.4 SECONDS [facility] INR 1.04 0.96 - 1.18 [facility] Comment: NO ANTICOAG ??0.96-1.18 STD DOSE ? 2.00-3.00 HIGH DOSE ? 2.50-3.50 Blood Blood specimen / Unknown 12/24/2024 11:20 AM EDT 12/24/2024 3:50 PM EDT Jhoana Wilkins MD LAB BLOOD ORDERABLES Final Resul t Performing Organization Address [facility] de Phone Number [facility] [address] [place] [address] * (ABNORMAL) FERRITIN (12/24/2024 11:20 AM EDT) Ferritin 164(H) 15 - 150 ng/mL [facility] Blood Blood specimen / Unknown 12/24/2024 11:20 AM EDT 12/24/2024 3:50 PM EDT Jhoana Wilkins MD LAB BLOOD ORDERABLES Final Resul t Performing Organization Address [facility] de Phone Number [facility] [address] [place] [address] * Comprehensive Metabolic Panel (12/24/2024 11:20 AM [...] [facility] GFR Estimated (calculated) >60 >60 [facility] Comment: As of 2021, the [facility] has updated the creatinine- based estimated glomerular filtration rate (eGFRcr) to the updated CKD-EPI 2020 equation. ??This change removes the race coefficient of the older calculation, and was made based on recommendations from the National Kidney Foundation and the [place] [employer]ph[employer]'s Task Force. ??The new [...] MD LAB BLOOD ORDERABLES Final Resul t [facility] [address] [place] [address], * von Willebrand Factor Antigen (12/24/2024 12:00 AM EDT) Von Willebrand Factor Antigen 128 50 - 200 % [facility] 1 Blood Blood specimen / Unknown 12/24/2024 12/25/2024 Comment:Blood Narrative [facility] ADAM) - 12/26/2024 1:05 PM EDT Test(s) [id number] Willebrand Factor (vWF) Ag was developed and its performance characteristics determined by [facility]. It has not been cleared or approved by the Food and Drug Administration. Performed at: ??01 - [facility] [address] ??[id number] [employer] [place]: Avelino Escobar MD, Phone: ??[phone] Jhoana Wilkins MD LAB BLOOD ORDERABLES Final Resul t [facility] ADAM) [facility] 1 * CARDIAC EVENT/LOOP MONITOR RECORD/SCN ANLYSIS/REPORT ([id number]) (11/30/2024 9:51 AM EST) Anatomical Region Laterality Modality Other Narrative 12/14/2024 8:33 AM EDT s Antonio Puente MD CV CARDIAC SERVICES ORDERAB [...] Re sult from Last 3 Months Insurance [facility] OUT OF STATE - PPO [place] OUT OF [facility] [place] OUT OF [facility] Member Subscriber Plan / Payer (Ef fective 2024-Present) Name:Deyanira De Leon Relation to Subscriber:Spouse Name:ANGEL DE LEON Date of :1997 (Home) Address: [address] [place] [phone] Payer ID:[id number] (NAIC) Type:Not on file Address: [place] [phone] [facility] OUT OF STATE - PPO Care Teams Supervisor Orchard Relationship Specialty Start Date End Date Radha Martel PA-C [address] [place] [address] PCP - General Internal Medicine 02/24/24 Vinod Robles MD [address] [place] [address] Primary Fur Glosser Cardiovascular Disease 09/02/24
--- OUTSIDE RECORDS SUMMARY | 2025-02-16 13:51 | XMS_ITS | Encounter Summary ---
Author Organization [facility] Address [address] [place] [address] Care Team Providers Care Reconsignment Clerk Name Role Phone Siddhartha Oakes MD Primary Care Provider [phone] Martha Grey APRN Primary Care Provider Unav ailable Martha Grey APRN Primary Care Provider Unav ailable Mike Burns NP Primary Care Provider Unavail able Martha Grey APRN Primary Care Provider Unav ailable Reason for Visit * Reason Onset Date Comments Orders Call 10/02/2019 Encounter Details Date Type Department Care Team Description 10/02/2019 Telephone Adult Medicine [address] [address] Siddhartha Oakes MD [address] [place] [address] Orders Call Social History Tobacco Use Types Packs/Day Years [...] on file documented as of this encounter Patient Instructions * Patient Instructions* Siddhartha Oakes MD - 10/06/2019 11:06 AM EST This testing was not discussed-- await physiatry documented in this encounter Miscellaneous Notes * Telephone Encounter - Gaby Mcmanus M.A. - 10/08/2019 9:48 AM EST Patient informed. * Telephone Encounter - Jian Pimentel - 10/08/2019 9:33 AM EST New prescription was sent to the pharmacy, she will take 2 pills 3 times a day. * Telephone Encounter - Gaby Mcmanus M.A. - 10/08/2019 9:28 AM EST Patient informed lab work is ordered. She would like Dr. Pimentel to know the Gabapentin is working, however she would like to increase the dose. Please review and advise . She states she can be reached at ext. [phone] * Telephone Encounter - Gaby Mcmanus M.A. - 10/08/2019 9:22 AM EST Left message for patient to call. Dr. Pimentel placed order for lab work. * Telephone Encounter - Maria Elena Michaud L.P.N. - 10/06/2019 10:50 AM EST Patient saw Dr. Pimentel on 09/29/19 who diagnosed her with possible fibromyalgia. Patient requestingthe pended lab work to help confirm diagnosis. Dr. Pimentel is out of the office untul . Asking for PCP to order. Please send to lab if appropriate. Thank you. * Telephone Encounter - Aiyana Antunez - 10/06/2019 10:06 AM EST Pt would like to know if Siddhartha Oakes can put in orders for the blood work since is out please advise * Telephone Encounter - Gaby Guillen M.A. - 10/02/2019 1:28 PM EST I spoke with the patient ad informed her that I will send the message to Dr. Pimentle but he will notbe back in the office until 10/08. FYI: Patient states that she is feeling a little better since starting the gabapentin. She is not having any side effects from the medication. * Telephone Encounter - Madison Rincon M.A. - 10/02/2019 11:29 AM EST Last seen by Katiana on 09/28/19 for allergic rhinitis, no upcoming appt made with PCP team. Forward to Dr. Pimentel to order labs for patient as he last evaluated the patient for this reason on 09/29/19. PCP is out of the office until 10/05/19. * Telephone Encounter - Jackie Alcazar - 10/02/2019 11:24 AM EST Patient calling to request labs be ordered: informed patient she is developing fibromyalgia and she would like some labs to rule out RA What lab work is patient requesting? Antinuclear antibodies, erythrocyte sedimentation rate, vitamin D Does patient have an upcoming appointment, if yes when and WITH WHO? no Patients PCP is: Siddhartha Oakes documented in this encounter Plan of Treatment Not on file documented as of this encounter Results * 1 25 DIHYDROXY INCLUDES FRACTIONS IF PERFORMED (10/08/2019 9:36 AM EST) VIT D 1,25 DIHYDROXY 38 20 - 79 pg/mL 10/09/2019 11:18 AM EST [facility] Comment: Vitamin D 1, 25 dihydroxy levels should be primarily used to assess Vitamin D status in patients with renal disease and hypercalcemia. Vitamin D 1,25-dihydroxy levels are generally less than 5 pg/mL in end stage renal disease patients. The preferred initial test for assessing Vitamin D status in the general population is Vitamin D 25-hydroxy (VITD). Test performed at [facility], [address] [place] ??[address] ? [phone] Toby Smith MD ??- Near Eastern Archaeology Lecturer 10/08/2019 9:36 AM EST 10/08/2019 9:37 AM EST Jian Pimentel DO LAB Performing Organization Address [facility] Co de Phone Number [facility] * (ABNORMAL) 25 HYDROXY INCLUDES FRACTIONS IF PERFORMED (10/08/2019 9:36 AM EST) VITAMIN D, 25-HYDROXY 20(L) 30 - 80 ng/mL 10/08/2019 1:31 PM EST [facility] 10/08/2019 9:36 AM EST 10/08/2019 9:37 AM EST Jian Pimentel DO LAB Performing Organization Address [facility] Co de Phone Number [facility] * (ABNORMAL) RBC SEDIMENTATION RATE, NON-AUTO (10/08/2019 9:36 AM EST) ERYTHROCYTE SEDIMENTATION RATE 39(H) 0 - 20 mm/hr 10/08/2019 2:33 PM EST [facility] 10/08/2019 9:36 AM EST 10/08/2019 9:37 AM EST Jian Pimentel DO LAB Performing Organization Address [facility] Co de Phone Number [employer] * ANTINUCLEAR ANTIBODIES, ASSAY (10/08/2019 9:36 AM EST) ANTI-NUCLEAR ANTIBODY SCREEN NEGATIVE NEGATIVE 10/09/2019 3:31 PM EST [facility] [employer] ARABELLA PATHOLOGIST REVIEW DR. AGUDELO 10/09/2019 3:31 PM EST [facility] [employer] 10/08/2019 9:36 AM EST 10/08/2019 9:37 AM EST Jian Pimentel DO LAB [facility] documented in this encounter Visit Diagnoses Diagnosis Fibromyalgia- Primary Mylagia and myositis, unspecified Chronic pain syndrome Polyarthralgia Pain in joint, multiple sites Chronic fatigue Other malaise and fatigue Neck pain Cervicalgia Chronic bilateral low back pain without sciatica documented in this encounter Care Teams Reconsignment Clerk Relationship Specialty Start Date End Date Siddhartha Oakes MD [address] [place] [address] PCP - General Internal Medicine 05/06/19 01/12/20 Martha Grey APRN [address] [place] [address] PCP - General Internal Medicine 01/13/20 01/19/20 Martha Grey APRN [address] [place] [address] PCP - General Internal Medicine 01/20/20 05/16/22 Mike Burns NP [address] [place] [address] PCP - General Family Practice 05/17/22 11/20/22 Martha Grey APRN [address] [place] [address] PCP - General Internal Medicine 11/21/22 documented as of this encounter
--- OUTSIDE RECORDS SUMMARY | 2025-02-16 13:51 | XMS_ITS | Encounter Summary ---
Author Organization [facility] Address [address] [place] [address] Care Team Providers Care Crucible Furnace Tender Name Role Phone Radha Martel PA-C Primary Care Provi mckenna Vinod Robles MD Unavailable [phone] Encounter Details Date Type Department Care Team (Late st Contact Info) Description 03/13/2024 Telephone [facility] [address] [place] [address] Radha Martel PA-C [address] [place] [address] Social History Tobacco Use Types Packs/Day Years [...] Description 04/01/2025 9:45 AM EDT Office Visit [facility] Department of Cardiology [place] 160 [facility] 100 [place] [address] Antonio Puente MD [address] [address] 04/13/2025 8:30 AM EDT [facility] [address] [address] Theodora Yap APRN [address] [address] 05/20/2025 3:45 PM EDT Office Visit [facility] 100 [facility] [address] [place] [address] Radha Martel PA-C [address] [place] [address] 05/27/2025 8:00 AM EDT [facility] [address] [address] Raphael Mcdaniel MD 31 [place] [address] 07/22/2025 9:20 AM EDT Office Visit [facility] Department Of Hematology/Oncology [place] [address] [place] [phone] Jhoana Wilkins MD [address] [place] [address] documented as of this encounter Visit Diagnoses Not on filedocumented in this encounter Care Teams Crucible Furnace Tender Relationship Specialty Start Date End Date Radha Martel PA-C [address] [place] [address] PCP - General Internal Medicine 02/24/24 Vinod Robles MD [facility] [place] [address] Primary Full Stack Software Developer Cardiovascular Disease 09/02/24 documented as of this encounter
--- OUTSIDE RECORDS SUMMARY | 2025-02-16 13:51 | XMS_ITS | Encounter Summary ---
Author Organization [facility] Address [address] [place] [address] Care Team Providers Care Hand Cigar Making Supervisor Name Role Phone Radha Martel PA-C Primary Care Provi mckenna Vinod Robles MD Unavailable [phone] Encounter Details Date Type Department Care Team (Late st Contact Info) Description 04/02/2024 Scanned Document [facility] [place] [facility] 100 [facility] [address] [place] [phone] Radha Martel PA-C [address] [place] [address] Social History Tobacco Use Types Packs/Day Years [...] Office Visit [facility] Department of Cardiology [place] [address] [facility] [address] [place] [address] Antonio Puente MD 160 [facility] [address] [place] [address] 04/13/2025 8:30 AM EDT [facility] [address] [address] Theodora Yap APRN [address] [address] 05/20/2025 3:45 PM EDT Office Visit [address] [address] Radha Martel PA-C 100 [place] [address] 05/27/2025 8:00 AM EDT [facility] [address] [address] Raphael Mcdaniel MD [address] [place] [address] 07/22/2025 9:20 AM EDT Office Visit [facility] Department Of Hematology/Oncology [address] [place] [phone] Jhoana Wilkins MD 300 [facility] [address] [place] [phone] documented as of this encounter Visit Diagnoses Not on filedocumented in this encounter Care Teams Hand Cigar Making Supervisor Relationship Specialty Start Date End Date Radha Martel PA-C [address] [place] [address] PCP - General Internal Medicine 02/24/24 Vinod Robles MD [address] [place] [address] Primary Hydrometer Finisher Cardiovascular Disease 09/02/24 documented as of this encounter
--- OUTSIDE RECORDS SUMMARY | 2025-02-16 13:51 | XMS_ITS | Encounter Summary ---
Author Organization [facility] Address [address] [place] [address] Care Team Providers Care Pitching Coach Name Role Phone Siddhartha Oakes MD Primary Care Provider [phone] Martha Grey APRN Primary Care Provider Unav ailable Martha Grey APRN Primary Care Provider Unav ailable Mike Burns NP Primary Care Provider Unavail able Martha Grey APRN Primary Care Provider Unav ailable Encounter Details Date Type Department Care Team Description 12/16/2019 Orders Only Medical Records [address] [place] [address] Win Swanson PA Social History Tobacco Use [...] as of this encounter Progress Notes * Win Swanson PA-C - 12/17/2019 8:00 AM EDT Please see telephone encounter documented in this encounter Plan of Treatment Not on file documented as of this encounter Procedures Procedure Name Priority Date/Time Associated Diagnosis Comments OUTSIDE SLEEP STUDY Routine 12/11/2019 documented in this encounter Results * OUTSIDE SLEEP STUDY (12/11/2019) Win [facility] documented in this encounter Visit Diagnoses Not on filedocumented in this encounter Care Teams Pitching Coach Relationship Specialty Start Date End Date Siddhartha Oakes MD [address] [place] [address] PCP - General Internal Medicine 05/06/19 01/12/20 Martha Grey APRN [address] [place] [address] PCP - General Internal Medicine 01/13/20 01/19/20 Martha Grey APRN [address] [place] [address] PCP - General Internal Medicine 01/20/20 05/16/22 Mike Burns NP [address] [place] [address] PCP - General Family Practice 05/17/22 11/20/22 Martha Grey APRN [address] [place] [address] PCP - General Internal Medicine 11/21/22 documented as of this encounter"
--- OUTSIDE RECORDS SUMMARY | 2025-02-16 13:51 | XMS_ITS | Encounter Summary ---
Author Organization [facility] Address [address] [place] [address] Care Team Providers Care Hemodialysis Rn Name Role Phone Martha Grey APRN Primary Care Provider Unav ailable Martha Grey APRN Primary Care Provider Unav ailable Mike Burns NP Primary Care Provider Unavail able Martha Grey APRN Primary Care Provider Unav ailable Encounter Details Date Type Department Care Team Description 01/17/2020 Orders Only Adult Medicine B - [address] [address] Luanne Alejandra MD Social History Tobacco Use [...] on filedocumented in this encounter Care Teams Hemodialysis Rn Relationship Specialty Start Date End Date Martha Grey APRN PCP - General Internal Medicine 01/13/20 01/19/20 Martha Grey APRN PCP - General Internal Medicine 01/20/20 05/16/22 Mike Burns NP PCP - General Family Practice 05/17/22 11/20/22 Martha Grey APRN PCP - General Internal Medicine 11/21/22 documented as of this encounter
--- OUTSIDE RECORDS SUMMARY | 2025-02-16 13:51 | XMS_ITS | Encounter Summary ---
Author Organization [facility] Address [address] [place] [address] Care Team Providers Care Car Body Mechanic Name Role Phone Radha Martel PA-C Primary Care Provi mckenna Vinod Robles MD Unavailable [phone] Encounter Details Date Type Department Care Team (Late st Contact Info) Description 02/10/2025 Scanned Document [facility] [address] [place] [address] Neurology, Scan Social History Tobacco Use Types Packs/Day [...] Description 04/01/2025 9:45 AM EDT [facility] Department of Cardiology [place] [address] [place] [address] Antonio Puente MD [address] [address] 04/13/2025 8:30 AM EDT [facility] [address] [address] Theodora Yap APRN [address] [address] 05/20/2025 3:45 PM EDT Office Visit [facility] 100 [facility] 101 [place] [phone] Radha Martel PA-C 100 [place] [address] 05/27/2025 8:00 AM EDT [facility] [address] [address] Raphael Mcdaniel MD 31 [place] [address] 07/22/2025 9:20 AM EDT Office Visit [facility] Department Of Hematology/Oncology [address] [phone] Jhoana Wilkins MD 300 [facility] [address] [place] [address] documented as of this encounter Visit Diagnoses Not on filedocumented in this encounter Care Teams Car Body Mechanic Relationship Specialty Start Date End Date Radha Martel PA-C [address] [place] [address] PCP - General Internal Medicine 02/24/24 Vinod Robles MD [address] [place] [address] Primary Bilingual Branch Manager Cardiovascular Disease 09/02/24 documented as of this encounter
--- OUTSIDE RECORDS SUMMARY | 2025-02-16 13:51 | XMS_ITS | Encounter Summary ---
Author Organization [facility] Address [address] [place] [address] Care Team Providers Care Ultrasound Applications Specialist Name Role Phone Radha Martel PA-C Primary Care Provi mckenna Vinod Robles MD Unavailable [phone] Encounter Details Date Type Department Care Team (Late st Contact Info) Description 03/06/2024 Scanned Document [facility] Department Of Hematology/Oncology [place] [address] [place] [phone] Jhoana Wilkins MD [address] [place] [address] Social History Tobacco Use Types Packs/Day Years [...] Description 04/01/2025 9:45 AM EDT Office Visit [facility] Department of Cardiology [place] [address] [place] [address] Antonio Puente MD [address] [place] [address] 04/13/2025 8:30 AM EDT [facility] [address] [address] Theodora Yap APRN [address] [address] 05/20/2025 3:45 PM EDT Office Visit [address] [place] [address] Radha Martel PA-C [address] [place], [place] [phone] 05/27/2025 8:00 AM EDT [facility] [place] [phone] Raphael Mcdaniel MD [address] [place] [address] 07/22/2025 9:20 AM EDT Office Visit [facility] Department Of Hematology/Oncology [address] Con[place] Oscar [address] [place] [phone] Jhoana Wilkins MD 300 [facility] [address] [place] [address] documented as of this encounter Procedures Procedure Name Priority Date/Time Associated Diagnosis Comments LAB RESULT 03/06/2024 7:06 PM EDT documented in this encounter Results * LAB RESULT (03/06/2024 7:06 PM EDT) Jhoana Wilkins MD HX AMB PROCEDURES Final Result documented in this encounter Visit Diagnoses Not on filedocumented in this encounter Care Teams Ultrasound Applications Specialist Relationship Specialty Start Date End Date Radha Martel PA-C [address] [place] [address] PCP - General Internal Medicine 02/24/24 Vinod Robles MD [place] [address] Primary Carpenter Supervisor Wooden Ship Cardiovascular Disease 09/02/24 documented as of this encounter
--- OUTSIDE RECORDS SUMMARY | 2025-02-16 13:51 | XMS_ITS | Encounter Summary ---
Author Organization [facility] Address [address] [place] [address] Care Team Providers Care Wildlife Photographer Name Role Phone Martha Grey APRN Primary Care Provider Unav ailable Mike Burns NP Primary Care Provider Unavail able Martha Grey APRN Primary Care Provider Unav ailable Reason for Referral * Non NANI (Routine) - Authorized/Booked Specialty Diagnoses / Procedures Referred By Aman beltran Referred To Contact Nephrology Procedures REFERRAL TO NEPHROLOGY Ingrid Price APRN [address] [place] [address] [address] [address] Referral ID Status Reason Start Date Expiration Date V isits Requested Visits Authorized [id number] SEE NOTE Authorized/ Booked 03/07/2021 03/07/2022 1 1 Encounter Details Date Type Department Care Team Description 03/07/2021 Orders Only Adult Medicine A - [address] [address] Ingrid Price APRN [address] [place] [address] Low phosphate levels (Primary Dx); Low calcium [...] - 88 pg/mL 03/07/2021 6:25 PM EDT [facility] 03/07/2021 4:50 PM EDT 03/07/2021 4:51 PM EDT Narrative [facility] - 03/07/2021 6:25 PM EDT Release to patient->Immediate Ingrid Price APRN LAB Performing Organization Address [facility] de Phone Number [facility] [employer] * THYROID PROFILE W/TSH (03/07/2021 4:50 PM EDT) TSH CASCADE 1.53 0.40 - 4.00 uIU/ml 03/07/2021 6:20 PM EDT [facility] [employer] 03/07/2021 4:50 PM EDT 03/07/2021 4:51 PM EDT Narrative [facility] - 03/07/2021 6:20 PM EDT Release to patient->Immediate Ingrid Price APRN LAB Performing Organization Address [facility]/ZIP Co de Phone Number [facility] [employer] documented in this encounter Visit Diagnoses Diagnosis Low phosphate levels- Primary Disorders of phosphorus metabolism Low calcium levels Hypocalcemia Low calcium levels Hypocalcemia documented in this encounter Care Teams Wildlife Photographer Relationship Specialty Start Date End Date Martha Grey APRN PCP - General Internal Medicine 01/20/20 05/16/22 Mike Burns NP PCP - General Family Practice 05/17/22 11/20/22 Martha Gery APRN PCP - General Internal Medicine 11/21/22 documented as of this encounter
--- OUTSIDE RECORDS SUMMARY | 2025-02-16 13:51 | XMS_ITS | Encounter Summary ---
Author Organization [facility] Address [address] [place] [address] Care Team Providers Care Auto Repair Technician Name Role Phone Radha Martel PA-C Primary Care Provi mckenna Vinod Robles MD Unavailable [phone] Reason for Visit * Reason Comments Other Encounter Details Date Type Department Care Team (Late st Contact Info) Description 03/23/2024 Telephone [facility] [address] [place] [phone] Radha Martel PA-C [address] [place] [address] Other Social History Tobacco Use Types Packs/Day [...] Office Visit [facility] Department of Cardiology [place] [address] [place] [phone] Antonio Puente MD [address] [place] [address] 04/13/2025 8:30 AM EDT [facility] [address] [address] Theodora Yap APRN [address] [address] 05/20/2025 3:45 PM EDT Office Visit [facility] 100 [facility] 101 [place] [address] Radha Martel PA-C [address] [place], [place] [phone] 05/27/2025 8:00 AM EDT [facility] [address] [address] Raphael Mcdaniel MD 31 [place] [address] 07/22/2025 9:20 AM EDT Office Visit [facility] Department Of Hematology/Oncology [address] [phone] Jhoana Wilkins MD 300 [facility] [address] [place] [address] documented as of this encounter Visit Diagnoses Not on filedocumented in this encounter Care Teams Auto Repair Technician Relationship Specialty Start Date End Date Radha Martel PA-C [address] [place] [address] PCP - General Internal Medicine 02/24/24 Vinod Robles MD [address] [place] [address] Primary Sand Shoveler Cardiovascular Disease 09/02/24 documented as of this encounter
--- OUTSIDE RECORDS SUMMARY | 2025-02-16 13:52 | XMS_ITS | Encounter Summary ---
Author Organization [facility] Address [address] [place] [address] Care Team Providers Care Income Tax Preparer Name Role Phone Martha Grey APRN Primary Care Provider Unav ailable Mike Burns NP Primary Care Provider Unavail able Martha Grey APRN Primary Care Provider Unav ailable Encounter Details Date Type Department Care Team Description 06/07/2020 [facility] Medical Records [address] [place] [address] Abstract, Provider Social History Tobacco Use Types [...] on filedocumented in this encounter Care Teams Income Tax Preparer Relationship Specialty Start Date End Date Martha Grey APRN PCP - General Internal Medicine 01/20/20 05/16/22 Mike Burns NP PCP - General Family Practice 05/17/22 11/20/22 Martha Grey APRN PCP - General Internal Medicine 11/21/22 documented as of this encounter
--- OUTSIDE RECORDS SUMMARY | 2025-02-16 13:52 | XMS_ITS | Encounter Summary ---
Author Organization [facility] Address [address] [place] [address] Care Team Providers Care Financial Services Education Consultant Name Role Phone Martha Grey APRN Primary Care Provider Unav ailable Mike Burns NP Primary Care Provider Unavail able Martha Grey APRN Primary Care Provider Unav ailable Encounter Details Date Type Department Care Team Description 05/09/2020 Hospital Medical Records [address] [place] [id number] [place], [place] [address] Social History Tobacco Use Types Packs/Day Years [...] filedocumented in this encounter Care Teams Financial Services Education Consultant Relationship Specialty Start Date End Date Martha Grey APRN PCP - General Internal Medicine 01/20/20 05/16/22 Mike Burns NP PCP - General Family Practice 05/17/22 11/20/22 Martha Grey APRN PCP - General Internal Medicine 11/21/22 documented as of this encounter
--- OUTSIDE RECORDS SUMMARY | 2025-02-16 13:52 | XMS_ITS | Encounter Summary ---
Author Organization [facility] Address [address] [place] [address] Care Team Providers Care Business Performance Analyst Name Role Phone Radha Martel PA-C Primary Care Provi mckenna Vinod Robles MD Unavailable [phone] Encounter Details Date Type Department Care Team (Late st Contact Info) Description 10/29/2024 Scanned Document [address] [facility] [address] [place] [phone] Provider, Generic Social History Tobacco Use [...] Description 04/01/2025 9:45 AM EDT Office Visit [facility] Department of Cardiology [place] [address] [place] [address] Antonio Puente MD [address] [address] 04/13/2025 8:30 AM EDT [facility] [address] [address] Theodora Yap APRN [address] [address] 05/20/2025 3:45 PM EDT Office Visit [facility] 100 [facility] 101 [place] [address] Radha Martel PA-C 100 [place] [address] 05/27/2025 8:00 AM EDT [facility] [address] [address] Raphael Mcdaniel MD 31 [place] [address] 07/22/2025 9:20 AM EDT Office Visit [facility] Department Of Hematology/Oncology [address] [phone] Jhoana Wilkins MD [address] [address] documented as of this encounter Visit Diagnoses Not on filedocumented in this encounter Care Teams Business Performance Analyst Relationship Specialty Start Date End Date Radha Martel PA-C 100 [place] [address] PCP - General Internal Medicine 02/24/24 Vinod Robles MD [address] [place] [address] Primary Fashion Consultant Sales Cardiovascular Disease 09/02/24 documented as of this encounter
--- OUTSIDE RECORDS SUMMARY | 2025-02-16 13:52 | XMS_ITS | Encounter Summary ---
Author Organization [facility] Address [address] [place] [address] Care Team Providers Care Varnish Maker Name Role Phone Radha Martel PA-C Primary Care Provi mckenna Vinod Robles MD Unavailable [phone] Encounter Details Date Type Department Care Team (Late st Contact Info) Description 08/19/2024 Scanned Document [address] [phone] Radha Martel PA-C [address] [place] [address] Social History Tobacco Use Types Packs/Day Years [...] Office Visit [facility] Department of Cardiology [place] 160 [facility] [address] [place] [address] Antonio Puente MD 160 [facility] 100 [place] [address] 04/13/2025 8:30 AM EDT [facility] [address] [address] Theodora Yap APRN [address] [address] 05/20/2025 3:45 PM EDT Office Visit [facility] 100 [facility] [address] [place] [address] Radha Martel PA-C 100 [place] [address] 05/27/2025 8:00 AM EDT [facility] [address] [address] Raphael Mcdaniel MD 31 [place] [address] 07/22/2025 9:20 AM EDT Office Visit [facility] Department Of Hematology/Oncology [place] [address] [place] [phone] Jhoana Wilkins MD [address] [facility] [address] [place], [place] [address] documented as of this encounter Visit Diagnoses Not on filedocumented in this encounter Care Teams Varnish Maker Relationship Specialty Start Date End Date Radha Martel PA-C 100 [place] [address] PCP - General Internal Medicine 02/24/24 Vinod Robles MD [facility] [place] [address] Primary Physician Assistant Psychiatry Cardiovascular Disease 09/02/24 documented as of this encounter
--- OUTSIDE RECORDS SUMMARY | 2025-02-16 13:52 | XMS_ITS | Referral Summary ---
Author Organization [facility] Address [address] [place] [address] Care Team Providers Care Mechanic Marine Engine Name Role Phone Radha Martel Primary Care Provider [phone] Allergies Active Allergy Reactions Criticality Noted Date Comments Adhesive Unknown 01/17/2020 tape Clindamycin Hcl Anaphylaxis High 10/23/2011 Tapentadol Rash High 08/04/2014 Venlafaxine Unknown 06/01/2020 Suicidal ideation Medications valACYclovir (VALTREX) 500 mg tablet Take 1 tablet by mouth daily. 1 Active triamcinolone (NASACORT) 55 mcg nasal inhaler U 2 SPRAYS IEN D 0 Active Mi-Acid Gas Relief,simethic on, 80 mg chewable tablet FLAT BREAKDOWN PROCESSOR ONE T Q 6 H PRN 0 [...] on file Insurance HSNO/FREE CARE Care Teams Mechanic Marine Engine Relationship Specialty Start Date End Date Radha Martel [address] [place] [address] PCP - General Internal Medicine 03/30/24
--- OUTSIDE RECORDS SUMMARY | 2025-02-16 13:52 | XMS_ITS | Encounter Summary ---
Author Organization [facility] Address [address] [place] [address] Care Team Providers Care Transit Mix Operator Name Role Phone Radha Martel Primary Care Provider [phone] Encounter Details Date Type Department Care Team (Late st Contact Info) Description 11/03/2020 myChart Message [facility] [address] [place], [place] [phone] Kalie Clark MD 55 [place], [place] [phone] Non-Urgent Medical Question Social History Tobacco Use [...] on filedocumented in this encounter Care Teams Transit Mix Operator Relationship Specialty Start Date End Date Radha Martel [address] [place] [address] PCP - General Internal Medicine 03/30/24 documented as of this encounter
--- OUTSIDE RECORDS SUMMARY | 2025-02-16 13:52 | XMS_ITS | Encounter Summary ---
Author Organization [facility] Address [address] [place] [address] Care Team Providers Care Db2 Systems Programmer Name Role Phone Martha Grey APRN Primary Care Provider Unav ailable Mike Burns NP Primary Care Provider Unavail able Martha Grey APRN Primary Care Provider Unav ailable Encounter Details Date Type Department Care Team Description 10/31/2020 Color Adviser Report Medical Records [address] [place] [phone] [place] [address] Social History Tobacco Use Types Packs/Day Years [...] have Coronavirus / COVID-19? No / Unsure 10/10/2020 10:59 AM EST documented as of this encounter Plan of Treatment Not on file documented as of this encounter Visit Diagnoses Not on filedocumented in this encounter Care Teams Db2 Systems Programmer Relationship Specialty Start Date End Date Martha Grey APRN PCP - General Internal Medicine 01/20/20 05/16/22 Mike Burns NP PCP - General Family Practice 05/17/22 11/20/22 Martha Grey APRN PCP - General Internal Medicine 11/21/22 documented as of this encounter
--- OUTSIDE RECORDS SUMMARY | 2025-02-16 13:52 | XMS_ITS | Encounter Summary ---
Author Organization [facility] Address [address] [place] [address] Care Team Providers Care Lens Finisher Name Role Phone Martha Grey APRN Primary Care Provider Unav ailable Mike Burns NP Primary Care Provider Unavail able Martha Grey APRN Primary Care Provider Unav ailable Encounter Details Date Type Department Care Team Description 06/15/2020 Refill Rheumatology - [address] [address] Mario Serrano MD Social History Tobacco Use [...] on filedocumented in this encounter Care Teams Lens Finisher Relationship Specialty Start Date End Date Martha Grey APRN PCP - General Internal Medicine 01/20/20 05/16/22 Mike Burns NP PCP - General Family Practice 05/17/22 11/20/22 Martha Grey APRN PCP - General Internal Medicine 11/21/22 documented as of this encounter
--- OUTSIDE RECORDS SUMMARY | 2025-02-16 13:52 | XMS_ITS | Encounter Summary ---
Author Organization [facility] Address [address] [place] [address] Care Team Providers Care Income Tax Administrator Name Role Phone Martha Grey APRN Primary Care Provider Unav ailable Mike Burns NP Primary Care Provider Unavail able Martha Grey APRN Primary Care Provider Unav ailable Reason for Visit * Reason Comments E-prescribe Rx Request Encounter Details Date Type Department Care Team Description 04/16/2020 Refill General Surgery [address] [place] [address] Jasmine Smith MD [address] [place] [address] [address] [place] [address] E-prescribe Rx Request Social History Tobacco Use [...] as of this encounter Visit Diagnoses Diagnosis Class 3 severe obesity due to excess calories without serious comorbidity with body mass index (BMI) of 45.0 to 49.9 in adult (HCC) documented in this encounter Care Teams Income Tax Administrator Relationship Specialty Start Date End Date Martha Grey APRN PCP - General Internal Medicine 01/20/20 05/16/22 Mike Burns NP PCP - General Family Practice 05/17/22 11/20/22 Martha Grey APRN PCP - General Internal Medicine 11/21/22 documented as of this encounter
--- OUTSIDE RECORDS SUMMARY | 2025-02-16 13:52 | XMS_ITS | Encounter Summary ---
Author Organization [facility] Address [address] [place] [address] Care Team Providers Care Integrated Campaign Manager Name Role Phone Radha Martel Primary Care Provider [phone] Encounter Details Date Type Department Care Team (Late st Contact Info) Description 12/02/2020 Orders Only [facility] [address] [place] [phone] Kalie Clark MD [address] [place] [phone] Social History Tobacco Use Types Packs/Day Years [...] of this encounter Procedures * Due to [place] Bench law, this organization might not be sharing negative HIV tests. Procedure Name Priority Date/Time Associated Diagnosis Comments NEURODIAGNOSTIC - SCANNED Routine 04/06/2020 documented in this encounter Results * Due to [place] Bench law, this organization might not be sharing negative HIV tests. * NEURODIAGNOSTIC - SCANNED (04/06/2020) Kalie Clark MD SCANNED PROCEDURES Final Res ult documented in this encounter Visit Diagnoses Not on filedocumented in this encounter Care Teams Integrated Campaign Manager Relationship Specialty Start Date End Date Radha Martel [address] [place] [address] PCP - General Internal Medicine 03/30/24 documented as of this encounter
--- OUTSIDE RECORDS SUMMARY | 2025-02-16 13:52 | XMS_ITS | Encounter Summary ---
Author Organization [facility] Address [address] [place] [address] Care Team Providers Care Research Rn Spec Name Role Phone Martha Grey APRN Primary Care Provider Unav ailable Mike Burns NP Primary Care Provider Unavail able Martha Grey APRN Primary Care Provider Unav ailable Encounter Details Date Type Department Care Team Description 05/16/2020 Refill Rheumatology - [address] [address] Win Swanson PA Social History Tobacco Use [...] on filedocumented in this encounter Care Teams Research Rn Spec Relationship Specialty Start Date End Date Martha Grey APRN PCP - General Internal Medicine 01/20/20 05/16/22 Mike Burns NP PCP - General Family Practice 05/17/22 11/20/22 Martha Grey APRN PCP - General Internal Medicine 11/21/22 documented as of this encounter
--- OUTSIDE RECORDS SUMMARY | 2025-02-16 13:52 | XMS_ITS | Encounter Summary ---
Author Organization [facility] Address [address] [place] [address] Care Team Providers Care Venetian Blind Assembler Name Role Phone Martha Grey APRN Primary Care Provider Unav ailable Mike Burns NP Primary Care Provider Unavail able Martha Grey APRN Primary Care Provider Unav ailable Encounter Details Date Type Department Care Team Description 05/06/2020 [facility] Medical Records [address] [place] [address] Jasmine Smith MD [address] [place] [address] [place] [address] Social History Tobacco Use Types Packs/Day Years [...] on filedocumented in this encounter Care Teams Venetian Blind Assembler Relationship Specialty Start Date End Date Martha Grey APRN PCP - General Internal Medicine 01/20/20 05/16/22 Glogowski, Mike, MANAGER CORPORATE RESPONSIBILITY PCP - General Family Practice 05/17/22 11/20/22 Martha Grey APRN PCP - General Internal Medicine 11/21/22 documented as of this encounter
--- OUTSIDE RECORDS SUMMARY | 2025-02-16 13:52 | XMS_ITS | Data Portability ---
Author Organization [facility], [facility], Patient Home Address [address] [place] [phone] Care Team Providers Care Economist Research Assistant Name Role Phone NIKITA AZAR Primary Care Provider NIKITA AZAR Referring Provider [phone] Assessment No assessment recorded. Plan of Treatment Reminders Order Date Submit Date Provider Last Modified By Organization Details Last Modified Time Details Appointments None recorde d. Lab drug screen, urine 020 02/11/20 20 dmousad Main Office, [address] [place] [address], [phone], 0 18:38:20 Referral None recorde d. Procedures None recorde d. Surgeries None recorde d. Imaging None recorde d. Medication Orders None recorde d. Patient Targets Encounter Date Encounter Id Patient Goals Patient Target Last Modified By Organization Details Last Modified Time 02/11/2020 [id number] halfway goal o f Pain Scale Not available Not available Not available blending coordinator goal o f Weight Not available Not [...] : negati ve Not Available Main Office [address] [place] [address], [phone], 02/11/2020 13:48:41 02/11/20 20 02/11/2020 drug scree n, urine Cannabinoids :THC negati ve Not Available Main Office [address] [place] [address], [place], [address], 02/11/2020 13:48:41 02/11/20 20 02/11/2020 drug scree n, urine Cocaine: negati ve Not Available Main Office [address] [place] [address], [place], [address], 02/11/2020 13:48:41 02/11/20 20 02/11/2020 drug scree n, urine Methadone: negati ve Not Available Main Office [address] [place] [address], [place], [address], 02/11/2020 13:48:41 02/11/20 20 02/11/2020 drug scree n, urine Opiates: negati ve Not Available Main Office [address] [place] [address], [place], [address], 02/11/2020 13:48:41 02/11/20 20 02/11/2020 drug scree n, urine Oxycodone: negati ve Not Available Main Office [address] [place] [address], [place], [address], 02/11/2020 13:48:41 02/11/20 20 02/11/2020 drug scree n, urine Phenocyclidi ne: negati ve Not Available Main Office [address] [place] [address], [place], [address], 02/11/2020 13:48:41 02/11/20 20 02/11/2020 drug scree n, urine Barbiturates : negati ve Not Available Main Office [address] [place] [address], [place], [address], 02/11/2020 13:48:41 02/11/20 20 02/11/2020 drug scree n, urine Benzodiazepi jacqueline: positi ve Not Available Main Office [address] [address], [place], [address], 02/11/2020 13:48:41 02/11/20 20 02/11/2020 drug scree n, urine Buprenorphin e negati ve Not Available Main Office [address] [address], [place], [address], 02/11/2020 13:48:41 02/11/20 20 02/11/2020 drug scree n, urine Methamphetam ine negati ve Not Available Main Office [address] [address], [place], [address], 02/11/2020 13:48:41 02/11/20 20 02/11/2020 drug scree n, urine MDMA negati ve Not Available Main Office [address] [place] [address], [place], [address], 02/11/2020 13:48:41 02/24/20 20 MRI, lumba r spine , w/o contr ast No observ ation record ed. [email or web address] Not Available 14:53:31 Result Notes None recorded. Problems Name Problem SNOMED Code Status Onset Date Resolution Date Notes Provider Name and Address Organization Details Recorded Time Fibromyalgia 249748573 Active 2019 Esa Alas MD [address] [place] [address], [place], [address], [facility], [facility] 0 14:27:21 Depressive disorder 98889735 Active 2019 Esa Alas MD [address] [place] [address], [place], [address], [facility], [facility] 0 14:27:53 Anxiety 63687033 Active 2019 Esa Alas MD [address] [place] [address], [address], [facility], [facility] 0 14:28:05 Asthma 102028424 Active 2019 Esa Alas MD [address] [place] [address], [address] [place] [address] 4, [facility], [facility] 0 14:28:42 Problem Notes None recorded. Procedures Surgical History None recorded. Imaging Results Imaging Date Name Status LastModified by Organiz ation Details LastModified Time 02/24/2020 MRI, lumbar spine, w/o contrast [facility] Information not available 05/06/2023 14:53:31 Procedure Notes None recorded. Medical Equipment None Reported. Allergies Allergen ID Allergen Name Allergen Category Reaction Reaction Severity Criticality Documentation Date Start Date Code Code System Note Provider Name and Address Organization Details Recorded Time 1541 clindamyc in Not available Not available Not available Not available 02/11/2020 2582 RxNorm Esa Alas MD [address] [place] [address], [address] [place] [address] 4, [facility], [facility] 0 14:27:01 1542 adhesive tape environme nt,medica tion Not available Not available Not available 02/11/2020 39733 UNK Esa Alas MD [address] [place] [address], [address] [place] [address] 4, [facility], [facility] 0 14:27:10 Medications Name Sig Start Date [...] N Anemia N Ulcers N Heart Attack ([place]) N Diabetes N Anxiety Disorder Y Bleeding [...] Note 4598 Esa Alas MD Main Office [address] [place] [address] 34 [place] [address] 02/11/2020 13:08:23 02/11/2020 16:54:21 Long-term current use of opiate analgesic drug 2384887834 88016 Z79.891 Lumbosacra l spondylosis without myelopathy 21955259 M47.817 L>R. weight reduction. HEP. RFR if the pain persist. Degenerati on of lumbar intervertebral disc 23522836 M51.36 weight reduction aquatic [place] Low back pain 974212188 M54.5 HEP Aquatic [place] Health Concerns Section Related Observation LastModified by Organization Detai ls LastModified Time None Recorded Concern Status LastModified by Organization Details LastModified Time None Recorded Advance Directives Directive None Recorded Payers Encounter Date Sequence Insurance Name Policy Number Policy Adames Covered Member ID Adames Member ID Guarantor Name 02/11/2020 1 [facility] ([facility]) [id number] Deyanira Poor [id number] Deyanira Poor Notes Date Note Type [...] was +ve for Benzo. Esa Alas MD [address] [place] [address],[address], [place], [address], [facility], [facility] 02/13/2020 18:38:24 OBGyn Episode No OBEpisode recorded.
--- OUTSIDE RECORDS SUMMARY | 2025-02-16 13:52 | XMS_ITS | Encounter Summary ---
Author Organization [facility] Address [address] [place] [address] Care Team Providers Care Nuclear Control Operator Name Role Phone Radha Martel PA-C Primary Care Provi mckenna Vinod Robles MD Unavailable [phone] Encounter Details Date Type Department Care Team (Late st Contact Info) Description 09/15/2024 Scanned Document [facility] 100 [facility] 101 [place] [address] Otolaryngology, Scan Social History Tobacco Use Types [...] Office Visit [facility] Department of Cardiology [place] 160 [facility] [address] [place] [address] Antonio Puente MD [address] [address] 04/13/2025 8:30 AM EDT [facility] [address] [address] Theodora Yap APRN [address] [address] 05/20/2025 3:45 PM EDT Office Visit [facility] 100 [facility] 101 [place] [address] Radha Martel PA-C 100 [place] [address] 05/27/2025 8:00 AM EDT [facility] [address] [address] Raphael Mcdaniel MD 31 [place] [address] 07/22/2025 9:20 AM EDT Office Visit [facility] Department Of Hematology/Oncology [address] Conner Gomez [address] [place] [phone] Jhoana Wilkins MD [address] [address] documented as of this encounter Visit Diagnoses Not on filedocumented in this encounter Care Teams Nuclear Control Operator Relationship Specialty Start Date End Date Radha Martel PA-C 100 [place] [address] PCP - General Internal Medicine 02/24/24 Vinod Robles MD [address] [place] [address] [place] [address] Primary Supervisor Intermediates Cardiovascular Disease 09/02/24 documented as of this encounter
--- OUTSIDE RECORDS SUMMARY | 2025-02-16 13:52 | XMS_ITS | Encounter Summary ---
Author Organization [facility] Address [address] [place] [address] Care Team Providers Care Icu Nurse Name Role Phone Martha Grey APRN Primary Care Provider Unav ailable Mike Burns NP Primary Care Provider Unavail able Martha Grey APRN Primary Care Provider Unav ailable Encounter Details Date Type Department Care Team Description 05/17/2020 Orders Only Adult Medicine A - [address] [address] Ingrid Price APRN [address] [place] [address] Social History Tobacco Use Types Packs/Day Years [...] on filedocumented in this encounter Care Teams Icu Nurse Relationship Specialty Start Date End Date Martha Grey APRN PCP - General Internal Medicine 01/20/20 05/16/22 Mike Burns NP PCP - General Family Practice 05/17/22 11/20/22 Martha Grey APRN PCP - General Internal Medicine 11/21/22 documented as of this encounter
--- OUTSIDE RECORDS SUMMARY | 2025-02-16 13:52 | XMS_ITS | Clinical Summary ---
Author Organization [facility] Address [address] [place] [address] Care Team Providers Care Food Preparer Name Role Phone Radha Martel Primary Care Provider [phone] Allergies Active Allergy Reactions Criticality Noted Date Comments Adhesive Unknown 01/17/2020 tape Clindamycin Hcl Anaphylaxis High 10/23/2011 Tapentadol Rash High 08/04/2014 Venlafaxine Unknown 06/01/2020 Suicidal ideation Medications valACYclovir (VALTREX) 500 mg tablet Take 1 tablet by mouth daily. 1 Active triamcinolone (NASACORT) 55 mcg nasal inhaler U 2 SPRAYS IEN D 0 Active Mi-Acid Gas Relief,simethic on, 80 mg chewable tablet CNA INSTRUCTOR ONE T Q 6 H PRN 0 [...] series) 01/10/2067 Insurance HSNO/FREE CARE Care Teams Food Preparer Relationship Specialty Start Date End Date Radha Martel [address] [place] [address] PCP - General Internal Medicine 03/30/24
--- OUTSIDE RECORDS SUMMARY | 2025-02-16 13:52 | XMS_ITS | Encounter Summary ---
Author Organization [facility] Address 100 [place] [address] Care Team Providers Care Small Electric Engine Technician Name Role Phone Radha Martel PA-C Primary Care Provi mckenna Vinod Robles MD Unavailable [phone] Encounter Details Date Type Department Care Team (Late st Contact Info) Description 10/29/2024 11:45 AM EST Hospital Encounter [facility] [address] [place] [phone] Social History Tobacco Use Types Packs/Day Years [...] Office Visit [facility] Department of Cardiology [place] [address] [place] [address] Antonio Puente MD 160 [facility] 100 [place] [address] 04/13/2025 8:30 AM EDT [facility] [address] [address] Theodora Yap APRN [address] [address] 05/20/2025 3:45 PM EDT Office Visit [facility] 100 [facility] [address] [place] [address] Radha Martel PA-C 100 [place] [address] 05/27/2025 8:00 AM EDT [facility] [address] [address] Raphael Mcdaniel MD 31 [place], [place] [phone] 07/22/2025 9:20 AM EDT Office Visit [facility] Department Of Hematology/Oncology [place] [address] [place] [address] Conner Gomez 107 [place] [address] Jhoana Wilkins MD [address] [address] documented as of this encounter Procedures Procedure [...] your patient to us, Jassi Boone MD [id number] (Electronically Signed - 10/29/2024 12:28) Copy: PATIENT [...] Boone MD 10/29/2024 12:28 PM EST RPWorkstation: [id number] Thank you for referring your patient to us, Jassi Boone MD [id number] (Electronically Signed - 10/29/2024 12:28) Copy: PATIENT , JANAK Longoria IMPardeep DIAGNOSTIC IMAGING ORDERABL ES Final Result documented in this encounter Visit Diagnoses Not on filedocumented in this encounter Care Teams Small Electric Engine Technician Relationship Specialty Start Date End Date Radha Martel PA-C [address] [place] [address] PCP - General Internal Medicine 02/24/24 Vinod Robles MD [address] [place] [address] Primary Rhinologist Cardiovascular Disease 09/02/24 documented as of this encounter
--- OUTSIDE RECORDS SUMMARY | 2025-02-16 13:52 | XMS_ITS | Encounter Summary ---
Author Organization [facility] Address [address] [id number] Care Team Providers Care Chip Silo Tender Name Role Phone Radha Martel Primary Care Provider [phone] Encounter Details Date Type Department Care Team (Late st Contact Info) Description 12/02/2020 myChart Message [facility] [address] [place] [address] [phone] Kalie Clark MD [address] [place] [address] [phone] RE: Non-Urgent Medical Question Social History Tobacco [...] on filedocumented in this encounter Care Teams Chip Silo Tender Relationship Specialty Start Date End Date Radha Martel [address] [place] [address] PCP - General Internal Medicine 03/30/24 documented as of this encounter
--- OUTSIDE RECORDS SUMMARY | 2025-02-16 13:52 | XMS_ITS | Encounter Summary ---
Author Organization [facility] Address [address] [place] [address] Care Team Providers Care Svp Research And Strategic Analysis Name Role Phone Radha Martel PA-C Primary Care Provi mckenna Vinod Robles MD Unavailable [phone] Encounter Details Date Type Department Care Team (Late st Contact Info) Description 10/29/[address] [facility] [address] [place] [phone] Provider, Generic Social History Tobacco Use [...] Description 04/01/2025 9:45 AM EDT Office Visit [facility] Department of Cardiology [place] [address] [place] [address] Antonio Puente MD [address] [address] 04/13/2025 8:30 AM EDT [facility] [address] [address] Theodora Yap APRN [address] [address] 05/20/2025 3:45 PM EDT Office Visit [facility] 100 [facility] 101 [place] [address] Radha Martel PA-C 100 [place] [address] 05/27/2025 8:00 AM EDT [facility] [address] [address] Raphael Mcdaniel MD 31 [place] [address] 07/22/2025 9:20 AM EDT Office Visit [facility] Department Of Hematology/Oncology [address] [phone] Jhoana Wilkins MD [address] [address] documented as of this encounter Visit Diagnoses Not on filedocumented in this encounter Care Teams Svp Research And Strategic Analysis Relationship Specialty Start Date End Date Radha Martel PA-C 100 [place] [address] PCP - General Internal Medicine 02/24/24 Vinod Robles MD [address] [place] [address] Primary Plastic Sewer Cardiovascular Disease 09/02/24 documented as of this encounter
--- OUTSIDE RECORDS SUMMARY | 2025-02-16 13:52 | XMS_ITS | Encounter Summary ---
Author Organization [facility] Address [address] [place] [address] Care Team Providers Care Employee Wellness/Fitness Coordinator Name Role Phone Radha Martel PA-C Primary Care Provi mckenna Vinod Robles MD Unavailable [phone] Reason for Visit * Reason Comments Referral Encounter Details Date Type Department Care Team (Late st Contact Info) Description 07/16/2024 Telephone [facility] [address] [place] [phone] Radha Martel PA-C [address] [place] [address] Referral Social History Tobacco Use Types Packs/Day [...] Description 04/01/2025 9:45 AM EDT Office Visit [facility] Department of Cardiology [place] 160 [facility] 100 [place] [address] Antonio Puente MD 160 [facility] 100 [place] [address] 04/13/2025 8:30 AM EDT [facility] [address] [address] Theodora Yap APRN [address] [address] 05/20/2025 3:45 PM EDT Office Visit [facility] 100 [facility] 101 [place] [address] Radha Martel PA-C 100 [place] [address] 05/27/2025 8:00 AM EDT [facility] [address] [address] Raphael Mcdaniel MD 31 [place] [address] 07/22/2025 9:20 AM EDT Office Visit [facility] Department Of Hematology/Oncology [place] [address]60 Mendel Gomez 107 [place] [address] Jhoana Wilkins MD 300 [place] [facility] [address] [place] [address] documented as of this encounter Visit Diagnoses Not on filedocumented in this encounter Care Teams Employee Wellness/Fitness Coordinator Relationship Specialty Start Date End Date Radha Martel PA-C 100 [place] [address] PCP - General Internal Medicine 02/24/24 Vinod Robles MD 711 [place] [address] Primary Four Corner Stayer Machine Operator Cardiovascular Disease 09/02/24 documented as of this encounter
--- OUTSIDE RECORDS SUMMARY | 2025-02-16 13:52 | XMS_ITS | Encounter Summary ---
Author Organization [facility] Address [address] [place] [address] Care Team Providers Care Plastic Parts Fabricator Name Role Phone Martha Grey APRN Primary Care Provider Unav ailable Mike Burns NP Primary Care Provider Unavail able Martha Grey APRN Primary Care Provider Unav ailable Encounter Details Date Type Department Care Team Description 06/01/2020 Orders Only Adult Medicine [facility] 305 [place] [address] Martha Grey APRN Social History Tobacco Use [...] on filedocumented in this encounter Care Teams Plastic Parts Fabricator Relationship Specialty Start Date End Date Martha Grye APRN PCP - General Internal Medicine 01/20/20 05/16/22 Mike Burns NP PCP - General Family Practice 05/17/22 11/20/22 Martha Grey APRN PCP - General Internal Medicine 11/21/22 documented as of this encounter
--- OUTSIDE RECORDS SUMMARY | 2025-02-16 13:52 | XMS_ITS | Clinical Summary ---
Author Organization [facility] Address [address] [place] [address] Care Team Providers Care Computer Compositor Name Role Phone Radha Martel Primary Care Provider [phone] Allergies Active Allergy Reactions Criticality Noted Date [...] opinion from another surgeon versus referral to [facility] Endometriosis clinic in [place]. She would like referral to the endometriosis [...] on patient's age to complete this topic Insurance Payer Benefit Plan / Group Subscriber ID Effective Dates Phone Address Type MISCELLANEOUS COMM MISCELLANEOUS INSURANCE [id number] 02/04/2023-Pre sent [address] [place] [address] POS BLUE CROSS BLUE SHIELD [facility] BLUE SHIELD [facility] [id number] 02/04/2023-Pre sent [address] [place] [address] BLUE CROSS BLUE SHIELD [facility] BH BLUE CROSS BLUE [facility] [id number] 02/04/2023-Pre sent [address] [place] [address] BLUE CROSS BLUE SHIELD BLUE CROSS OUT OF [facility] [id number] 12/05/2022-04/11 [phone] [address] [place] [address] PPO BLUE CROSS BLUE SHIELD BLUE CROSS OUT OF STATE [id number] 07/07/2023-Pr esent [address] [facility] [address] PPO [place] [id number] 02/07/2023-Pre sent [phone] [address] [place] [address] Medicaid [place] [id number] 02/07/2023-Pre sent [phone] [address] [place] [address] Medicaid [place] [id number] 02/09/2025-Pre sent [address] [place] [address] Medicaid [facility] [id number] 04/02/2023-Pr esent [address] [place] [address] Advance Directives For more information, please contact: [phone] Latest Code Status on File Code Status [...] way: discussion with patient . Care Teams Computer Compositor Relationship Specialty Start Date End Date Radha Martel PA [address] [place] [address] PCP - General Physician Certified Pediatric Nurse Practitioner 02/24/24
== END 2025-02-16 13:37 | disposition home or self-care (01) ==
LOC: HO.HSMS 12:48
PROVIDERS: PCP Nurse Practitioner; Visit Provider Psychiatry & Neurology Neurology
DX: R41.89 Other symptoms and signs involving cognitive functions and awareness (principal); G47.10 Hypersomnia, unspecified; R20.0 Anesthesia of skin; R20.2 Paresthesia of skin; M62.838 Other muscle spasm; R42 Dizziness and giddiness
CPT/HCPCS: 99215

== ENCOUNTER 2025-02-16 12:48 | Outpatient (REF) | payer BC, SELFPAY ==
--- OUTSIDE RECORDS SUMMARY | 2025-02-16 14:50 | XMS_ITS | Encounter Summary ---
Author Organization [facility] Address [address] [place] [address] Care Team Providers Care Director Script Name Role Phone Martha Grey PANFILO Primary Care Provider Unav ailable Reason for Visit * Reason Comments E-prescribe Rx Request Encounter Details Date Type Department Care Team Description 12/19/2022 Refill Bariatric Surgery [facility] 175 [facility] 120 [place] [address] Maria Elena Medina PA-C 271 [facility] 110 [place] [address] E-prescribe Rx Request Social History [...] filedocumented in this encounter Care Teams Director Script Relationship Specialty Start Date End Date Martha Grey APRN PCP - General Internal Medicine 11/21/22 documented as of this encounter
--- OUTSIDE RECORDS SUMMARY | 2025-02-16 14:50 | XMS_ITS | Encounter Summary ---
Author Organization [facility] Address [address] [place] [address] Care Team Providers Care Funeral Planner Name Role Phone Radha Martel PA-C Primary Care Provi mckenna Vinod Robles MD Unavailable Encounter Details Date Type Department Care Team (Late st Contact Info) Description 01/27/2025 Scanned Document [facility] [address] [address] Raphael Mcdaniel MD [address] [place] [address] Social History Tobacco Use Types Packs/Day Years [...] Care Team (Late st Contact Info) Description 02/19/2025 8:00 AM EDT Consult [facility] 31 [facility] 100 [place] [address] Eliseo Molina APRN 499 [facility] [address] [place] [address] 04/01/2025 9:45 AM EDT Office Visit [facility] Department of Cardiology [place] 160 [facility] 100 [place] [address] Antonio Puente MD 160 [facility] 100 [place] [address] 04/13/2025 8:30 AM EDT [facility] [address] [address] Theodora Yap APRN [address] [address] 05/20/2025 3:45 PM EDT Office Visit [facility] 100 [facility] [address] [place] [address] Radha Martel PA-C 100 [place] [address] 05/27/2025 8:00 AM EDT [facility] [address] [address] Raphael Mcdaniel MD 31 [place] [address] 07/22/2025 9:20 AM EDT Office Visit [facility] Department Of Hematology/Oncology [place] [address] [place] [phone] Jhoana Wilkins MD 300 [facility] [address] [place] [address] documented as of this encounter Visit Diagnoses Not on filedocumented in this encounter Care Teams Funeral Planner Relationship Specialty Start Date End Date Radha Martel PA-C [address] [place] [address] PCP - General Internal Medicine 02/24/24 Vinod Robles MD 711 [place] [address] Primary Sewer Line Repairer Cardiovascular Disease 09/02/24 documented as of this encounter
--- OUTSIDE RECORDS SUMMARY | 2025-02-16 14:50 | XMS_ITS | Encounter Summary ---
Author Organization [facility] Address [address] [place] [address] Care Team Providers Care Character Impersonator Name Role Phone Susannah Rendon DO Primary Care Pro vider Unavailable Siddhartha Oakes MD Primary Care Provider [phone] Martha Grey APRN Primary Care Provider Unav ailable Martha Grey APRN Primary Care Provider Unav ailable Mike Burns NP Primary Care Provider Unavail able Martha Grey APRN Primary Care Provider Unav ailable Reason for Visit * Reason Onset Date Comments TEST RESULTS 12/25/2018 Encounter Details Date Type Department Care Team Description 12/25/2018 Pt. Non Urgent Medic al Question Adult Medicine [address] [address] Susannah Rendon DO Social History Tobacco Use [...] on filedocumented in this encounter Care Teams Character Impersonator Relationship Specialty Start Date End Date Susannah Rendon DO PCP - General Internal Medicine 07/01/15 05/05/19 Siddhartha Oakes MD 305 [place] [address] PCP - General Internal Medicine 05/06/19 01/12/20 Martha Grey APRN 305 [place] [address] PCP - General Internal Medicine 01/13/20 01/19/20 Martha Grey APRN 305 [place] [address] PCP - General Internal Medicine 01/20/20 05/16/22 Mike Burns NP 305 [place] [address] PCP - General Family Practice 05/17/22 11/20/22 Martha Grey APRN 305 [place] [address] PCP - General Internal Medicine 11/21/22 documented as of this encounter
--- OUTSIDE RECORDS SUMMARY | 2025-02-16 14:50 | XMS_ITS | Encounter Summary ---
Author Organization [facility] Address [address] [place] [address] Care Team Providers Care Business Objects Report Developer Name Role Phone Siddhartha Oakes MD Primary Care Provider [phone] Martha Grey APRN Primary Care Provider Unav ailable Martha Grey APRN Primary Care Provider Unav ailable Mike Burns NP Primary Care Provider Unavail able Martha Grey APRN Primary Care Provider Unav ailable Encounter Details Date Type Department Care Team Description 07/14/2019 Release of Information Medical Records [address] [place] [id number] Abstract, Provider Social History Tobacco Use Types [...] filedocumented in this encounter Care Teams Business Objects Report Developer Relationship Specialty Start Date End Date Siddhartha Oakes MD [address] [place] [address] PCP - General Internal Medicine 05/06/19 01/12/20 Martha Grey APRN 305 [place] [address] PCP - General Internal Medicine 01/13/20 01/19/20 Martha Grey, PANFILO 305 [place] [address] PCP - General Internal Medicine 01/20/20 05/16/22 Mike Burns NP 305 [place] [address] PCP - General Family Practice 05/17/22 11/20/22 Martha Grey APRN 305 [place] [address] PCP - General Internal Medicine 11/21/22 documented as of this encounter
--- OUTSIDE RECORDS SUMMARY | 2025-02-16 14:50 | XMS_ITS | Encounter Summary ---
Author Organization [facility] Address [address] [place] [address] Care Team Providers Care Electrical Electronics Technician Name Role Phone Siddhartha Oakes MD Primary Care Provider [phone] Martha Grey APRN Primary Care Provider Unav ailable Martha Grey APRN Primary Care Provider Unav ailable Mike Burns NP Primary Care Provider Unavail able Martha Grey APRN Primary Care Provider Unav ailable Reason for Visit * Reason Onset Date Comments Provider Call Back 05/22/2019 Encounter Details Date Type Department Care Team Description 05/22/2019 Telephone Adult Medicine [address] [address] Siddhartha Oakes MD [address] [place] [address] Provider Call Back Social History Tobacco Use [...] filedocumented in this encounter Care Teams Electrical Electronics Technician Relationship Specialty Start Date End Date Siddhartha Oakes MD 305 [place] [address] PCP - General Internal Medicine 05/06/19 01/12/20 Martha Grey APRN 305 [place] [address] PCP - General Internal Medicine 01/13/20 01/19/20 Martha Grey APRN 305 [place] [address] PCP - General Internal Medicine 01/20/20 05/16/22 Mike Burns NP 305 [place] [address] PCP - General Family Practice 05/17/22 11/20/22 Martha Grey APRN 305 [place] [address] PCP - General Internal Medicine 11/21/22 documented as of this encounter
--- OUTSIDE RECORDS SUMMARY | 2025-02-16 14:50 | XMS_ITS | Encounter Summary ---
Author Organization [facility] Address [address] [place] [address] Care Team Providers Care Manual Winder Name Role Phone Siddhartha Oakes MD Primary Care Provider [phone] Martha Grey APRN Primary Care Provider Unav ailable Martha Grey APRN Primary Care Provider Unav ailable Mike Burns NP Primary Care Provider Unavail able Martha Grey APRN Primary Care Provider Unav ailable Encounter Details Date Type Department Care Team Description 07/29/2019 Telephone Gastroenterology - [address] [place] [address] Reji Ortega MD Social History [...] finally got in touch with someone at [facility] and they stated that this request has been denied as thefacility is out of network. This was confirmed by Koki @ [facility], confirmation # [phone]. I have sent a message to Dr. [...] of her auth for her testing at [facility], Please advise and I will contact patient. Thank you. documented in this encounter Plan of Treatment Not on file documented as of this encounter Visit Diagnoses Not on filedocumented in this encounter Care Teams Manual Winder Relationship Specialty Start Date End Date Siddhartha Oakes MD [address] [place] [address] PCP - General Internal Medicine 05/06/19 01/12/20 Martha Grey APRN 305 [place] [address] PCP - General Internal Medicine 01/13/20 01/19/20 Martha Grey APRN 305 [place] [address] PCP - General Internal Medicine 01/20/20 05/16/22 Mike Burns NP 305 [place] [address] PCP - General Family Practice 05/17/22 11/20/22 Martha Grey APRN 305 [place] [address] PCP - General Internal Medicine 11/21/22 documented as of this encounter
--- OUTSIDE RECORDS SUMMARY | 2025-02-16 14:50 | XMS_ITS | Encounter Summary ---
Author Organization [facility] Address [address] [place] [address] Care Team Providers Care Hassock Maker Name Role Phone Martha Grey PANFILO Primary Care Provider Unav ailable Reason for Visit * Reason Onset Date Comments Hospital Notes Received 06/26/2024 Encounter Details Date Type Department Care Team Description 06/26/2024 Telephone Bariatric Surgery - [place] 175 [facility] [address] [place] [address] Maria Elena Medina PA-C 271 [facility] 110 [place] [address] Hospital Notes Received Social History [...] on filedocumented in this encounter Care Teams Hassock Maker Relationship Specialty Start Date End Date Martha Grey APRN PCP - General Internal Medicine 11/21/22 documented as of this encounter
--- OUTSIDE RECORDS SUMMARY | 2025-02-16 14:50 | XMS_ITS | Encounter Summary ---
Author Organization [facility] Address [address] [place] [address] Care Team Providers Care Auto Salvage Worker Name Role Phone Radha Martel PA-C Primary Care Provi mckenna Vinod Robles MD Unavailable [phone] Encounter Details Date Type Department Care Team (Late st Contact Info) Description 05/04/[address] [phone] Radha Martel PA-C [address] [place] [address] Social History Tobacco Use Types Packs/Day Years [...] - 05/04/2024 12:44 PM EDT from [facility] stated they got a referral [...] Description 02/19/2025 8:00 AM EDT Consult [facility] 31 [facility] [address] [place] [address] Eliseo Molina, COTTON GINNER 499 [facility] [address] [place] [address] 04/01/2025 9:45 AM EDT Office Visit [facility] Department of Cardiology [place] 160 [facility] [address] [place] [address] Antonio Puente MD 160 [facility] 100 [place] [address] 04/13/2025 8:30 AM EDT [facility] 7 [facility] [address] [place] [address] Theodora Yap, COTTON GINNER 31 [facility] 100 [place] [address] 05/20/2025 3:45 PM EDT Office Visit [facility] 100 [facility] [address] [place] [address] Radha Martel PA-C [address] [place] [address] 05/27/2025 8:00 AM EDT [facility] [address] [place] [address] Raphael Mcdaniel MD 31 [place] [address] 07/22/2025 9:20 AM EDT Office Visit [facility] Department Of Hematology/Oncology [place] [address] [place] [address] [facility] 107 [place] [address] Jhoana Wilkins MD 300 [facility] [address] [place], [place] [address] documented as of this encounter Visit Diagnoses Not on filedocumented in this encounter Care Teams Auto Salvage Worker Relationship Specialty Start Date End Date Radha Martel PA-C [address] [place] [address] PCP - General Internal Medicine 02/24/24 Vinod Robles MD [address] [place] [address] Primary Sleeping Car Porter Cardiovascular Disease 09/02/24 documented as of this encounter
--- OUTSIDE RECORDS SUMMARY | 2025-02-16 14:50 | XMS_ITS | Encounter Summary ---
Author Organization [facility] Address [address] [place] [address] Care Team Providers Care Electrotyper Apprentice Name Role Phone Martha Grey APRN Primary Care Provider Unav ailable Encounter Details Date Type Department Care Team Description 01/10/2023 Refill Bariatric Surgery - [place] 175 [facility] 120 [place] [address] Maria Elena Medina PA-C 271 [facility] 110 [place] [address] Social History Tobacco Use Types [...] on filedocumented in this encounter Care Teams Electrotyper Apprentice Relationship Specialty Start Date End Date Martha Grey APRN PCP - General Internal Medicine 11/21/22 documented as of this encounter
--- OUTSIDE RECORDS SUMMARY | 2025-02-16 14:50 | XMS_ITS | Encounter Summary ---
Author Organization [facility] Address [address] [place] [address] Care Team Providers Care Direct Service Provider Name Role Phone Emerald Yu MD Primary Care Provider Unavailable [facility], Pcp Primary Care Provider Unavailbruce e Emerald Yu MD Primary Care Provider Unavailable [place] Colasacco, Susannah DO Primary Care Pro vider Unavailable Emerald Yu MD Primary Care Provider Unavailable [place] Colasacco, Susannah DO Primary Care Pro vider Unavailable Siddhartha Oakes MD Primary Care Provider [phone] Martha Grey APRN Primary Care Provider Unav ailable Martha Grey APRN Primary Care Provider Unav ailable Mike Burns NP Primary Care Provider Unavail able Martha Grey APRN Primary Care Provider Unav ailable Reason for Visit * Reason Onset Date Comments PT-1 08/11/2013 Encounter Details Date Type Department Care Team Description 08/11/2013 Telephone Adult Medicine [address] [address] Emerald Yu MD PT-1 Social History Tobacco [...] Tanner - 08/11/2013 3:28 PM EST Patients [place] [facility] Pt. demographics and [place] [facility] [place] information verified YES Mailing address if different from home address YES Name of treating provider Emerald Yu Address/zip for treating provider [address] [place] [address] Phone # of treating provider [phone] What specialty is this provider? pcp For [...] on filedocumented in this encounter Care Teams Direct Service Provider Relationship Specialty Start Date End Date Emerald Yu MD PCP - General Internal Medicine 07/14/1210/13 [facility], Pcp PCP - General Internal Medicine 10/14/13 12/17/13 Emerald Yu MD PCP - General Internal Medicine 12/18/1302/04 Susannah Rendon DO PCP - General Internal Medicine 02/14/15 05/09/15 Emerald Yu MD PCP - General Internal Medicine 05/10/1506/08 Susannah Rendon DO PCP - General Internal Medicine 07/01/15 05/05/19 Siddhartha Oakes MD [address] [place] [address] PCP - General Internal Medicine 05/06/19 01/12/20 Martha Grey APRN [address] [place] [address] PCP - General Internal Medicine 01/13/20 01/19/20 Martha Grey APRN [address] [place] [address] PCP - General Internal Medicine 01/20/20 05/16/22 Mike Burns NP [address] [place] [address] PCP - General Family Practice 05/17/22 11/20/22 Martha Grey APRN [address] [place] [address] PCP - General Internal Medicine 11/21/22 documented as of this encounter
--- OUTSIDE RECORDS SUMMARY | 2025-02-16 14:50 | XMS_ITS | Encounter Summary ---
Author Organization [facility] Address [address] [place] [address] Care Team Providers Care Talent Recruiter Name Role Phone Susannah Rendon DO Primary Care Pro vider Unavailable Siddhartha Oakes MD Primary Care Provider [phone] Martha Grey APRN Primary Care Provider Unav ailable Martha Grey APRN Primary Care Provider Unav ailable Mike Burns NP Primary Care Provider Unavail able Martha Grey APRN Primary Care Provider Unav ailable Encounter Details Date Type Department Care Team Description 03/04/2019 Refill Adult Medicine [address] [address] Reina Leung PA-C [address] [place] [address] [phone] Social History Tobacco Use Types Packs/Day Years [...] filedocumented in this encounter Care Teams Talent Recruiter Relationship Specialty Start Date End Date Susannah Rendon DO PCP - General Internal Medicine 07/01/15 05/05/19 Siddhartha Oakes MD [address] [place] [address] PCP - General Internal Medicine 05/06/19 01/12/20 Martha Grey APRN [address] [place] [address] PCP - General Internal Medicine 01/13/20 01/19/20 Martha Grey APRN [address] [place] [address] PCP - General Internal Medicine 01/20/20 05/16/22 Mike Burns NP [address] [place] [address] PCP - General Family Practice 05/17/22 11/20/22 Martha Grey APRN [address] [place] [address] PCP - General Internal Medicine 11/21/22 documented as of this encounter
--- OUTSIDE RECORDS SUMMARY | 2025-02-16 14:50 | XMS_ITS | Encounter Summary ---
Author Organization [facility] Address [address] [place] [address] Care Team Providers Care Video Camera Operator Name Role Phone Radha Martel PA-C Primary Care Provi mckenna Vinod Robles MD Unavailable [phone] Encounter Details Date Type Department Care Team (Late st Contact Info) Description 02/08/2025 Scanned Document [facility] [address] [place] [address] Raphael Mcdaniel MD [address] [place] [address] Social History Tobacco Use Types Packs/Day Years [...] 02/19/2025 8:00 AM EDT Consult [facility] 31 [facility] 100 [place] [address] Eliseo Molina APRN 499 [facility] [address] [place] [address] 04/01/2025 9:45 AM EDT Office Visit [facility] Department of Cardiology [place] 160 [facility] [address] [place] [address] Antonio Puente MD 160 [facility] 100 [place] [address] 04/13/2025 8:30 AM EDT [facility] Visit [facility] [address] [address] Theodora Yap APRN [address] [address] 05/20/2025 3:45 PM EDT Office Visit [facility] [place] 100 [facility] [address] [place] [address] Radha Martel PA-C 100 [place] [address] 05/27/2025 8:00 AM EDT [facility] Visit [facility] [address] [address] Raphael Mcdaniel MD [address] [place] [address] 07/22/2025 9:20 AM EDT Office Visit [facility] Department Of Hematology/Oncology [place] [address] [place] [phone] Jhoana Wilkins MD 300 [facility] [address] [place] [address] documented as of this encounter Visit Diagnoses Not on filedocumented in this encounter Care Teams Video Camera Operator Relationship Specialty Start Date End Date Radha Martel PA-C [address] [place] [address] PCP - General Internal Medicine 02/24/24 Vinod Robles MD [address] [place] [address] Primary Pricing Lead Cardiovascular Disease 09/02/24 documented as of this encounter
--- OUTSIDE RECORDS SUMMARY | 2025-02-16 14:50 | XMS_ITS | Encounter Summary ---
Author Organization [facility] Address [address] [place] [address] Care Team Providers Care Asphalt Roller Person Name Role Phone Siddhartha Oakes MD Primary Care Provider [phone] Martha Grey APRN Primary Care Provider Unav ailable Martha Grey APRN Primary Care Provider Unav ailable Mike Burns NP Primary Care Provider Unavail able Martha Grey APRN Primary Care Provider Unav ailable Encounter Details Date Type Department Care Team Description 09/14/2019 Orders Only Adult Medicine [address] [address] Ingrid Price APRN [address] [place] [address] Pneumonia due to infectious organism, unspecified laterality, [...] lung documented in this encounter Care Teams Asphalt Roller Person Relationship Specialty Start Date End Date Siddhartha Oakes MD [address] [place] [address] PCP - General Internal Medicine 05/06/19 01/12/20 Martha Grey APRN [address] [place] [address] PCP - General Internal Medicine 01/13/20 01/19/20 Martha Grey APRN [address] [place] [address] PCP - General Internal Medicine 01/20/20 05/16/22 Mike Burns NP [address] [place] [address] PCP - General Family Practice 05/17/22 11/20/22 Martha Grey APRN [address] [place] [address] PCP - General Internal Medicine 11/21/22 documented as of this encounter
--- OUTSIDE RECORDS SUMMARY | 2025-02-16 14:50 | XMS_ITS | Encounter Summary ---
Author Organization [facility] Address [address] [place] [address] Care Team Providers Care Web Communications Specialist Name Role Phone Martha Grey APRN Primary Care Provider Unav ailable Mike Burns NP Primary Care Provider Unavail able Martha Grey APRN Primary Care Provider Unav ailable Encounter Details Date Type Department Care Team Description 01/20/2020 Telephone Adult Medicine [address] [address] Luanne Alejandra MD Social History Tobacco Use [...] on filedocumented in this encounter Care Teams Web Communications Specialist Relationship Specialty Start Date End Date Martha Grey APRN PCP - General Internal Medicine 01/20/20 05/16/22 Mike Burns NP PCP - General Family Practice 05/17/22 11/20/22 Martha Grey APRN PCP - General Internal Medicine 11/21/22 documented as of this encounter
--- OUTSIDE RECORDS SUMMARY | 2025-02-16 14:50 | XMS_ITS | Encounter Summary ---
Author Organization [facility] Address [address] [place] [address] Care Team Providers Care Photographer Lithographic Name Role Phone Siddhartha Oakes MD Primary Care Provider [phone] Martha Grey APRN Primary Care Provider Unav ailable Martha Grey APRN Primary Care Provider Unav ailable Mike Burns NP Primary Care Provider Unavail able Martha Grey APRN Primary Care Provider Unav ailable Reason for Visit * Reason Onset Date Comments APPOINTMENT 05/19/2019 colo and egd Encounter Details Date Type Department Care Team Description 05/19/2019 Telephone Gastroenterology - [address] [place] [phone] Reji Ortega MD APPOINTMENT (colo and [...] on filedocumented in this encounter Care Teams Photographer Lithographic Relationship Specialty Start Date End Date Siddhartha Oakes MD [address] [place] [address] PCP - General Internal Medicine 05/06/19 01/12/20 Martha Grey APRN [address] [place] [address] PCP - General Internal Medicine 01/13/20 01/19/20 Martha Grey APRN [address] [place] [address] PCP - General Internal Medicine 01/20/20 05/16/22 Mike Burns NP [address] [place] [address] PCP - General Family Practice 05/17/22 11/20/22 Martha Grey APRN [address] [place] [address] PCP - General Internal Medicine 11/21/22 documented as of this encounter
--- OUTSIDE RECORDS SUMMARY | 2025-02-16 14:50 | XMS_ITS | Encounter Summary ---
Author Organization [facility] Address [address] [place] [address] Care Team Providers Care Patient Account Analyst Name Role Phone Martha Grey APRN Primary Care Provider Unav ailable Mike Burns NP Primary Care Provider Unavail able Martha Grey APRN Primary Care Provider Unav ailable Reason for Visit * Reason Onset Date Comments Provider Call Back 03/28/2020 Encounter Details Date Type Department Care Team Description 03/28/2020 Telephone Adult Medicine B - [address] [address] Martha Grey APRN Provider Call Back Social [...] on filedocumented in this encounter Care Teams Patient Account Analyst Relationship Specialty Start Date End Date Martha Grey APRN PCP - General Internal Medicine 01/20/20 05/16/22 Mike Burns NP PCP - General Family Practice 05/17/22 11/20/22 Martha Grey APRN PCP - General Internal Medicine 11/21/22 documented as of this encounter
--- OUTSIDE RECORDS SUMMARY | 2025-02-16 14:50 | XMS_ITS | Encounter Summary ---
Author Organization [facility] Address [address] [place] [address] Care Team Providers Care Csr Name Role Phone Siddhartha Oakes MD Primary Care Provider [phone] Emerald Yu MD Primary Care Provider Unavailable [facility], [facility] Primary Care Provider [facility] Emerald Yu MD Primary Care Provider Unavailable [place] Colasacco, Susannah DO Primary Care Pro vider Unavailable Emerald Yu MD Primary Care Provider Unavailable [place] Colasacco, Susannah DO Primary Care Pro vider Unavailable Siddhartha Oakes MD Primary Care Provider [phone] Martha Grey APRN Primary Care Provider Unav ailable Martha Grey APRN Primary Care Provider Unav ailable Mike Burns NP Primary Care Provider Unavail able Martha Grey APRN Primary Care Provider Unav ailable Encounter Details Date Type Department Care Team Description 03/17/2012 Hospital Medical Records [address] [place] [address] Lisa Thorpe, [facility] [address] [place] [address] Social History Tobacco Use Types Packs/Day Years [...] on filedocumented in this encounter Care Teams Csr Relationship Specialty Start Date End Date Siddhartha Oakes MD [address] [place] [address] PCP - General Internal Medicine 03/05/12 07/13/12 Emerald Yu MD [address] [place] [address] PCP - General Internal Medicine 07/14/12 10/13/13 [facility], [address] [address] PCP - General Internal Medicine 10/14/13 12/17/13 Emerald Yu MD [address] [place] [address] PCP - General Internal Medicine 12/18/13 02/13/15 Susannah Rendon DO [address] [place] [address] PCP - General Internal Medicine 02/14/15 05/09/15 Emerald Yu MD [address] [place] [address] PCP - General Internal Medicine 05/10/15 06/30/15 Susannah Rendon, [address] [place] [address] PCP - General Internal Medicine 07/01/15 05/05/19 Siddhartha Oakes MD [address] [place] [address] PCP - General Internal Medicine 05/06/19 01/12/20 Martha Grey APRN [address] [place] [address] PCP - General Internal Medicine 01/13/20 01/19/20 Martha Grey APRN [address] [place] [address] PCP - General Internal Medicine 01/20/20 05/16/22 Mike Burns NP [address] [place] [address] PCP - General Family Practice 05/17/22 11/20/22 Martha Grey APRN [address] [place] [address] PCP - General Internal Medicine 11/21/22 documented as of this encounter
--- OUTSIDE RECORDS SUMMARY | 2025-02-16 14:50 | XMS_ITS | Encounter Summary ---
Author Organization [facility] Address [address] [place] [address] Care Team Providers Care Job Coaching Name Role Phone Martha Grey APRN Primary Care Provider Unav ailable Mike Burns NP Primary Care Provider Unavail able Martha Grey APRN Primary Care Provider Unav ailable Encounter Details Date Type Department Care Team Description 03/21/2020 Soda Room Operator Report Medical Records [address] [place] [address] Keysha Martinez MD Social History Tobacco Use [...] filedocumented in this encounter Care Teams Job Coaching Relationship Specialty Start Date End Date Martha Grey APRN PCP - General Internal Medicine 01/20/20 05/16/22 Mike Burns NP PCP - General Family Practice 05/17/22 11/20/22 Martha Grey APRN PCP - General Internal Medicine 11/21/22 documented as of this encounter
--- OUTSIDE RECORDS SUMMARY | 2025-02-16 14:50 | XMS_ITS | Encounter Summary ---
Author Organization [facility] [employer] [facility] Address [address] [place] [address] Care Team Providers Care Tailer Off Name Role Phone Martha Grey APRN Primary Care Provider Unav ailable Reason for Visit * Reason Comments E-prescribe Rx Request Encounter Details Date Type Department Care Team Description 02/10/2023 Refill Bariatric Surgery - [place] [address] [facility] [address] [place] [address] Jaky Coyne MD [address] [facility] [address] [place] [address] E-prescribe Rx Request Social History [...]
--- OUTSIDE RECORDS SUMMARY | 2025-02-16 14:50 | XMS_ITS | Encounter Summary ---
Author Organization [facility] Address [address] [place] [address] Care Team Providers Care Ceramic Design Engineer Name Role Phone Radha Martel PA-C Primary Care Provi mckenna Vinod Robles MD Unavailable [phone] Encounter Details Date Type Department Care Team (Late st Contact Info) Description 05/26/2024 Scanned Document [facility] [address] [place] [address] Internal Medicine, Scan Social History Tobacco Use [...] 02/19/2025 8:00 AM EDT Consult [facility] [address] [place] [address] Eliseo Molina APRN [address] [place] [address] [address] [place] [address] 04/01/2025 9:45 AM EDT Office Visit [facility] Department of Cardiology [place] 160 [facility] [address] [place] [address] Antonio Puente MD 160 [facility] [place] 100 [place] [address] 04/13/2025 8:30 AM EDT [facility] [address] [address] Theodora Yap APRN [address] [address] 05/20/2025 3:45 PM EDT Office Visit [facility] 100 [facility] [address] [place] [address] Radha Martel PA-C 100 [place] [address] 05/27/2025 8:00 AM EDT [facility] [address] [address] Raphael Mcdaniel MD 31 [place] [address] 07/22/2025 9:20 AM EDT Office Visit [facility] Department Of Hematology/Oncology [place] [address] [place] [phone] Jhoana Wilkins MD 300 [facility] 4 [place], [place] [address] documented as of this encounter Visit Diagnoses Not on filedocumented in this encounter Care Teams Ceramic Design Engineer Relationship Specialty Start Date End Date Radha Martel PA-C [address] [place] [address] PCP - General Internal Medicine 02/24/24 Vinod Robles MD [address] [place] [address] Primary Manager Welding Cardiovascular Disease 09/02/24 documented as of this encounter
--- OUTSIDE RECORDS SUMMARY | 2025-02-16 14:50 | XMS_ITS | Encounter Summary ---
Author Organization [facility] Address [address] [place] [address] Care Team Providers Care Tea Tree Farmer Name Role Phone Siddhartha Oakes MD Primary Care Provider [phone] Emerald Yu MD Primary Care Provider Unavailable Counts Include [address] [facility], [facility] Primary Care Provider [facility]avail[facility]idence [facility] e Emerald Yu MD Primary Care Provider Unavailable Oj Colasadavido, Susannah DO Primary Care Pro vider Unavailable Emerald Yu MD Primary Care Provider Unavailable Krakoopal Colasadavido, Susannah DO Primary Care Pro vider Unavailable Siddhartha Oakes MD Primary Care Provider [phone] Martha Grey APRN Primary Care Provider Unav ailable Martha Grey APRN Primary Care Provider Unav ailable Mike Burns NP Primary Care Provider Unavail able Martha Grey APRN Primary Care Provider Unav ailable Reason for Visit * Reason Comments Encounter Details Date Type Department Care Team Description 06/04/2012 Telephone OBGYN - [facility] [address] [place], [place] [phone] Aurea Schneider CNM Social History Tobacco Use [...] Called patient to inform her that all [facility] labs normal documented in this encounter Plan of Treatment Not on file documented as of this encounter Visit Diagnoses Not on filedocumented in this encounter Care Teams Tea Tree Farmer Relationship Specialty Start Date End Date Siddhartha Oakes MD [address] [place] [address] PCP - General Internal Medicine 03/05/12 07/13/12 Emerald Yu MD [address] [place] [address] PCP - General Internal Medicine 07/14/12 10/13/[address] [address] PCP - General Internal Medicine 10/14/13 12/17/13 Emerald Yu MD [address] [place] [address] PCP - General Internal Medicine 12/18/13 02/13/15 Susannah Rendon, DO [address] [place] [address] PCP - General Internal Medicine 02/14/15 05/09/15 Emerald Yu MD [address] [place] [address] PCP - General Internal Medicine 05/10/15 06/30/15 Susannah Rendon, [address] [place] [address] PCP - General Internal Medicine 07/01/15 05/05/19 Siddhartha Oakes MD [address] [place] [address] PCP - General Internal Medicine 05/06/19 01/12/20 Martha Grey APRN [address] [place] [address] PCP - General Internal Medicine 01/13/20 01/19/20 Martha Grey APRN [address] [place] [address] PCP - General Internal Medicine 01/20/20 05/16/22 Mike Burns NP [address] [place] [address] PCP - General Family Practice 05/17/22 11/20/22 Martha Grey APRN [address] [place] [address] PCP - General Internal Medicine 11/21/22 documented as of this encounter
--- OUTSIDE RECORDS SUMMARY | 2025-02-16 14:50 | XMS_ITS | Encounter Summary ---
Author Organization [facility] Address [address] [place] [address] Care Team Providers Care Personal Loan Specialist Name Role Phone Siddhartha Oakes MD Primary Care Provider [phone] Emerald Yu MD Primary Care Provider Unavailable [facility] Primary Care Provider [facility] Emerald Yu MD Primary Care Provider Unavailable Oj Colasadavido, Susannah DO Primary Care Pro vider Unavailable Emerald Yu MD Primary Care Provider Unavailable Chongkoopal Colbarringtono, Susannah DO Primary Care Pro vider Unavailable Siddhartha Oakes MD Primary Care Provider [phone] Martha Grey APRN Primary Care Provider Unav ailable Martha Grey APRN Primary Care Provider Unav ailable Mike Burns NP Primary Care Provider Unavail able Martha Grey APRN Primary Care Provider Unav ailable Reason for Visit * Reason Onset Date Comments 03/16/2012 Encounter Details Date Type Department Care Team Description 03/16/2012 Telephone Adult Urgent Care - [address] [address] Siddhartha Oakes MD [address] [place] [address] Social History Tobacco Use Types Packs/Day Years [...] encounter Miscellaneous Notes * Telephone Encounter - Hailey Bobhargavarielle - 03/16/2012 4:51 PM EDT Chief Complaint/problem: Pain when baby moves How long has the patient had this problem? Couple of days and getting worse Pt???s PREPARATION PLANT SUPERVISOR provider: Aurea Schneider CNM Last menstrual period (LMP) or EDC (due date): N/A 25 weeks ist baby documented in this encounter Plan of Treatment Not on file documented as of this encounter Visit Diagnoses Not on filedocumented in this encounter Care Teams Personal Loan Specialist Relationship Specialty Start Date End Date Siddhartha Oakes MD [address] [place] [address] PCP - General Internal Medicine 03/05/12 07/13/12 Emerald Yu MD [address] [place] [address] PCP - General Internal Medicine 07/14/12 10/13/13 [facility], Pcp [address] [place] [address] PCP - General Internal Medicine 10/14/13 12/17/13 Emerald Yu MD [address] [place] [address] PCP - General Internal Medicine 12/18/13 02/13/15 Susannah Rendon DO [address] [place] [address] PCP - General Internal Medicine 02/14/15 05/09/15 Emerald Yu MD [address] [place] [address] PCP - General Internal Medicine 05/10/15 06/30/15 Susannah Rendon DO [address] [place] [address] PCP - General Internal Medicine 07/01/15 05/05/19 Siddhartha Oakes MD [address] [place] [address] PCP - General Internal Medicine 05/06/19 01/12/20 Martha Grey APRN [address] [place] [address] PCP - General Internal Medicine 01/13/20 01/19/20 Martha Grey APRN [address] [place] [address] PCP - General Internal Medicine 01/20/20 05/16/22 Mike Burns NP [address] [place] [address] PCP - General Family Practice 05/17/22 11/20/22 Martha Grey APRN [address] [place] [address] PCP - General Internal Medicine 11/21/22 documented as of this encounter
--- OUTSIDE RECORDS SUMMARY | 2025-02-16 14:50 | XMS_ITS | Encounter Summary ---
Author Organization [facility] Address [address] [place] [address] Care Team Providers Care Senior Laboratory Technician Name Role Phone Martha Grey APRN Primary Care Provider Unav ailable Mike Burns NP Primary Care Provider Unavail able Martha Grey APRN Primary Care Provider Unav ailable Reason for Visit * Reason Onset Date Comments Medication 02/02/2020 Encounter Details Date Type Department Care Team Description 02/02/2020 Pt. Non Urgent Medical Question Adult Medicine [address] [address] Ingrid Price APRN [address] [place] [address] Social History Tobacco Use Types Packs/Day Years [...] filedocumented in this encounter Care Teams Senior Laboratory Technician Relationship Specialty Start Date End Date Mratha Grey APRN PCP - General Internal Medicine 01/20/20 05/16/22 Mike Burns NP PCP - General Family Practice 05/17/22 11/20/22 Martha Grey APRN PCP - General Internal Medicine 11/21/22 documented as of this encounter
--- OUTSIDE RECORDS SUMMARY | 2025-02-16 14:50 | XMS_ITS | Encounter Summary ---
Author Organization [facility] Address [address] [place] [address] Care Team Providers Care Music Industry Intern Name Role Phone Martha Grey APRN Primary Care Provider Unav ailable Mike Burns NP Primary Care Provider Unavail able Martha Grey APRN Primary Care Provider Unav ailable Encounter Details Date Type Department Care Team Description 02/29/2020 Pt. Non Urgent Medic al Question Allergy [place] [address] [place] [address] Marilee Olivas MD Social History Tobacco Use [...] on filedocumented in this encounter Care Teams Music Industry Intern Relationship Specialty Start Date End Date Martha Grey APRN PCP - General Internal Medicine 01/20/20 05/16/22 Mike Burns NP PCP - General Family Practice 05/17/22 11/20/22 Martha Grey APRN PCP - General Internal Medicine 11/21/22 documented as of this encounter
--- OUTSIDE RECORDS SUMMARY | 2025-02-16 14:50 | XMS_ITS | Encounter Summary ---
Author Organization [facility] Address [address] [place] [address] Care Team Providers Care Fashion Stylist Name Role Phone Siddhartha Oakes MD Primary Care Provider [phone] Martha Grey APRN Primary Care Provider Unav ailable Martha Grey APRN Primary Care Provider Unav ailable Mike Burns NP Primary Care Provider Unavail able Martha Grey APRN Primary Care Provider Unav ailable Reason for Visit * Reason Onset Date Comments nausea 11/13/2019 Encounter Details Date Type Department Care Team Description 11/13/2019 Telephone General Surgery - [address] [place] [address] Jasmine Smith MD [address] [place] [address] [address] [place], [place] [id number] nausea Social History Tobacco Use Types Packs/Day [...] on filedocumented in this encounter Care Teams Fashion Stylist Relationship Specialty Start Date End Date Siddhartha Oakes MD [address] [place] [address] PCP - General Internal Medicine 05/06/19 01/12/20 Martha Grey APRN [address] [place] [address] PCP - General Internal Medicine 01/13/20 01/19/20 Martha Grey APRN [address] [place] [address] PCP - General Internal Medicine 01/20/20 05/16/22 Mike Burns NP [address] [place] [address] PCP - General Family Practice 05/17/22 11/20/22 Martha Grey APRN [address] [place] [address] PCP - General Internal Medicine 11/21/22 documented as of this encounter
--- OUTSIDE RECORDS SUMMARY | 2025-02-16 14:50 | XMS_ITS | Encounter Summary ---
Author Organization [facility] Address [address] [place] [address] Care Team Providers Care Short Order Cook Name Role Phone Radha Martel PA-C Primary Care Provi mckenna Vinod Robles MD Unavailable [phone] Encounter Details Date Type Department Care Team (Late st Contact Info) Description 05/04/2024 Scanned Document [facility] [address] [place] [id number] Radha Martel PA-C [address] [place] [address] Social History Tobacco Use Types Packs/Day Years [...] 8:00 AM EDT Consult [facility] [address] [facility] [address] [place] [address] Eliseo Molina APRN [address] [facility] [address] [place] [address] 04/01/2025 9:45 AM EDT Office Visit [facility] Department of Cardiology [place] [address] [facility] [address] [place] [address] Antonio Puente MD [address] [facility] 100 [place] [address] 04/13/2025 8:30 AM EDT [facility] [address] [address] Theodora Yap APRN [address] [address] 05/20/2025 3:45 PM EDT Office Visit [facility] 100 [facility] 101 [place] [address] Radha Martel PA-C [address] [place] [address] 05/27/2025 8:00 AM EDT [facility] [address] [address] Raphael Mcdaniel MD 31 [place] [address] 07/22/2025 9:20 AM EDT Office Visit [facility] Department Of Hematology/Oncology [place] [address] [place] [phone] Jhoana Wilkins MD 300 [facility] [address] [place], [place] [address] documented as of this encounter Visit Diagnoses Not on filedocumented in this encounter Care Teams Short Order Cook Relationship Specialty Start Date End Date Radha Martel PA-C [address] [place] [address] PCP - General Internal Medicine 02/24/24 Vinod Robles MD [address] [place] [address] Primary Lymphedema Therapist Cardiovascular Disease 09/02/24 documented as of this encounter
--- OUTSIDE RECORDS SUMMARY | 2025-02-16 14:50 | XMS_ITS | Encounter Summary ---
Author Organization [facility] Address [address] [place] [address] Care Team Providers Care Motor Vehicle Assembler Name Role Phone Martha Grey APRN Primary Care Provider Unav ailable Reason for Visit * Reason Comments E-prescribe Rx Request Encounter Details Date Type Department Care Team Description 01/14/2023 Refill Bariatric Surgery - [place] [address] [facility] [address] [place] [address] Jaky Coyne MD [address] [facility] [address] [place] [address] E-prescribe Rx Request Social History [...] on filedocumented in this encounter Care Teams Motor Vehicle Assembler Relationship Specialty Start Date End Date Martha Grey APRN PCP - General Internal Medicine 11/21/22 documented as of this encounter
--- OUTSIDE RECORDS SUMMARY | 2025-02-16 14:50 | XMS_ITS | Encounter Summary ---
Author Organization [facility] Address [address] [place] [address] Care Team Providers Care Plastic Extrusion Operator Name Role Phone Martha Grey APRN Primary Care Provider Unav ailable Mike Burns NP Primary Care Provider Unavail able Martha Grey APRN Primary Care Provider Unav ailable Encounter Details Date Type Department Care Team Description 2022 [facility] Medical Records [address] [place] [address] Abstract, Provider Social History Tobacco Use Types [...] filedocumented in this encounter Care Teams Plastic Extrusion Operator Relationship Specialty Start Date End Date Martha Grey APRN PCP - General Internal Medicine 4/15/20 8/10/22 Mike Burns NP PCP - General Family Practice 05/17/22 11/20/22 Martha Grey APRN PCP - General Internal Medicine 11/21/22 documented as of this encounter
--- OUTSIDE RECORDS SUMMARY | 2025-02-16 14:50 | XMS_ITS | Encounter Summary ---
Author Organization [facility] Address [address] [place] [address] Care Team Providers Care Tax Services Professional Name Role Phone Siddhartha Oakes MD Primary Care Provider [phone] Martha Grey APRN Primary Care Provider Unav ailable Martah Grey APRN Primary Care Provider Unav ailable Mike Burns NP Primary Care Provider Unavail able Martha Grey APRN Primary Care Provider Unav ailable Encounter Details Date Type Department Care Team Description 08/31/2019 Transit Survey Worker Report Medical Records [address] [place] [address] Abstract, Provider Social History Tobacco Use Types [...] filedocumented in this encounter Care Teams Tax Services Professional Relationship Specialty Start Date End Date Siddhartha Oakes MD [address] [place] [address] PCP - General Internal Medicine 05/06/19 01/12/20 Martha Grey APRN [address] [place] [address] PCP - General Internal Medicine 01/13/20 01/19/20 Martha Grey, PANFILO [address] [place] [address] PCP - General Internal Medicine 01/20/20 05/16/22 Mike Burns NP [address] [place] [address] PCP - General Family Practice 05/17/22 11/20/22 Martha Grey APRN [address] [place] [address] PCP - General Internal Medicine 11/21/22 documented as of this encounter
--- OUTSIDE RECORDS SUMMARY | 2025-02-16 14:50 | XMS_ITS | Encounter Summary ---
Author Organization [facility] Address [address] [place] [address] Care Team Providers Care Associate Professor Of Surgery Name Role Phone Siddhartha Oakes MD Primary Care Provider [phone] Martha Grey APRN Primary Care Provider Unav ailable Martha Grey APRN Primary Care Provider Unav ailable Mike Burns NP Primary Care Provider Unavail able Martha Grey APRN Primary Care Provider Unav ailable Encounter Details Date Type Department Care Team Description 05/06/2019 Hospital Medical Records [address] [place] [address] Jasmine Smith MD [address] [place] [address] [place] [address] Social History Tobacco Use Types Packs/Day Years [...] this encounter Care Teams Associate Professor Of Surgery Relationship Specialty Start Date End Date Siddhartha Oakes MD [address] [place] [address] PCP - General Internal Medicine 05/06/19 01/12/20 Martha Grey APRN [address] [place] [address] PCP - General Internal Medicine 01/13/20 01/19/20 Martha Grey APRN [address] [place] [address] PCP - General Internal Medicine 01/20/20 05/16/22 Mike Burns NP [address] [place] [address] PCP - General Family Practice 05/17/22 11/20/22 Martha Grey APRN [address] [place] [address] PCP - General Internal Medicine 11/21/22 documented as of this encounter
--- OUTSIDE RECORDS SUMMARY | 2025-02-16 14:50 | XMS_ITS | Encounter Summary ---
Author Organization [facility] Address [address] [place] [address] Care Team Providers Care Wealth Management Director Name Role Phone Siddhartha Oakes MD Primary Care Provider [phone] Martha Grey APRN Primary Care Provider Unav ailable Martha Grey APRN Primary Care Provider Unav ailable Mike Burns NP Primary Care Provider Unavail able Martha Grey APRN Primary Care Provider Unav ailable Reason for Visit * Reason Onset Date Comments TEST RESULTS 07/27/2019 Encounter Details Date Type Department Care Team Description 07/27/2019 Telephone Gastroenterology - [address] [address] Reji Ortega MD TEST RESULTS [...] waiting for auth for her test at [facility], I sent a message to the PA [...] performed: 07/23/2019 Where was the test performed: [facility] Who ordered this test?: Dr. Collins [...] on filedocumented in this encounter Care Teams Wealth Management Director Relationship Specialty Start Date End Date Siddhartha Oakes MD [address] [place] [address] PCP - General Internal Medicine 05/06/19 01/12/20 Martha Grey APRN [address] [place] [address] PCP - General Internal Medicine 01/13/20 01/19/20 Martha Grey APRN [address] [place] [address] PCP - General Internal Medicine 01/20/20 05/16/22 Mike Burns NP [address] [place] [address] PCP - General Family Practice 05/17/22 11/20/22 Martha Grey APRN [address] [place] [address] PCP - General Internal Medicine 11/21/22 documented as of this encounter
--- OUTSIDE RECORDS SUMMARY | 2025-02-16 14:51 | XMS_ITS | Encounter Summary ---
Author Organization [facility] Address [address] [place] [address] Care Team Providers Care Education Courses Sales Representative Name Role Phone Susannah Rendon DO Primary [...] Care Team Description 12/24/2016 Refill OBGYN - [place] [address] [place] [address] Ariel Varner MD [address] [place] [address] refill request Social History Tobacco Use [...] EDT WHEN WAS THE PATIENTS LAST ANNUAL ROUTE DRIVER COIN MACHINES EXAM? 05/10/15 Does patient have an upcoming [...] the end of the day? NO Payor: [facility] / Plan: FFS HMO $0 [place] [id number] / Product Type: MEDICAID RISK documented in this encounter Plan of Treatment Not on file documented as of this encounter Visit Diagnoses Not on filedocumented in this encounter Care Teams Education Courses Sales Representative Relationship Specialty Start Date End Date Susannah Rendon DO PCP - General Internal Medicine 07/01/15 05/05/19 Siddhartha Oakes MD [address] [place] [address] PCP - General Internal Medicine 05/06/19 01/12/20 Martha Grey APRN [address] [place] [address] PCP - General Internal Medicine 01/13/20 01/19/20 Martha Grey APRN [address] [place] [address] PCP - General Internal Medicine 01/20/20 05/16/22 Mike Burns NP [address] [place] [address] PCP - General Family Practice 05/17/22 11/20/22 Martha Grey APRN [address] [place] [address] PCP - General Internal Medicine 11/21/22 documented as of this encounter
--- OUTSIDE RECORDS SUMMARY | 2025-02-16 14:51 | XMS_ITS | Encounter Summary ---
Author Organization [facility] Address [address] [place] [address] Care Team Providers Care Lead Person Name Role Phone Martha Grey APRN Primary Care Provider Unav ailable Mike Burns NP Primary Care Provider Unavail able Martha Grey APRN Primary Care Provider Unav ailable Reason for Visit * Reason Onset Date Comments Prior Authorization 11/17/2020 Encounter Details Date Type Department Care Team Description 11/17/2020 Telephone Adult Medicine [address] [address] Martha Grey APRN Prior Authorization Social History [...] 11/17/2020 4:[address] SALDIVAR from [place] ordered an MRI brain. We did not get that auth. [facility] needs to contact thatoffice. * Telephone Encounter - Martha Grey APRN - 11/17/2020 3:59 PM EST Not sure what this is in regards to, I did not order an MRI * Telephone Encounter - Dora Tabares M.A. - 11/17/2020 3:07 PM EST This came to prior auth in [place], we only work with medications Please reply back to p [id number] Prior Auth pool Dora Tabares M.A. [facility] Prior Authorizations Ext [id number] Fax: [phone] [place] p [id number] Prior Auth pool * Telephone Encounter - Eleno Murphy - 11/17/2020 11:52 AM EST Lilly is calling today from the MRI Authorizations Department at [facility] because she notes that Martha Grey created a prior authorization for a MRI at [facility], but Dr. Ruby at [facility] also ordered an MRI. Lilly says there are issues with the [facility] authorization and she would like a call back whenever possible. documented in this encounter Plan of Treatment Not on file documented as of this encounter Visit Diagnoses Not on filedocumented in this encounter Care Teams Lead Person Relationship Specialty Start Date End Date Martha Grey APRN PCP - General Internal Medicine 01/20/20 05/16/22 Mike Burns NP PCP - General Family Practice 05/17/22 11/20/22 Martha Grey APRN PCP - General Internal Medicine 11/21/22 documented as of this encounter
--- OUTSIDE RECORDS SUMMARY | 2025-02-16 14:51 | XMS_ITS | Encounter Summary ---
Author Organization [facility] Address [address] [place] [address] Care Team Providers Care Territory Account Representative Name Role Phone Martha Grey APRN Primary Care Provider Unav ailable Mike Burns NP Primary Care Provider Unavail able Martha Grey APRN Primary Care Provider Unav ailable Reason for Visit * Reason Onset Date Comments refill request 09/22/2021 Encounter Details Date Type Department Care Team Description 09/22/2021 Refill Adult Medicine B - [address] [address] Tennille Caicedo NP [address] [place] [address] refill request Social History Tobacco Use Types [...] on filedocumented in this encounter Care Teams Territory Account Representative Relationship Specialty Start Date End Date Martha Grey APRN PCP - General Internal Medicine 01/20/20 05/16/22 Mike Burns NP PCP - General Family Practice 05/17/22 11/20/22 Martha Grey APRN PCP - General Internal Medicine 11/21/22 documented as of this encounter
--- OUTSIDE RECORDS SUMMARY | 2025-02-16 14:51 | XMS_ITS | Encounter Summary ---
Author Organization [facility] Address [address] [place] [address] Care Team Providers Care Auto Parts Salesperson Name Role Phone Martha Grey APRN Primary Care Provider Unav ailable Mike Burns NP Primary Care Provider Unavail able Martha Grey APRN Primary Care Provider Unav ailable Encounter Details Date Type Department Care Team Description 11/30/2020 Old Medical Records Medical Records [address] [place] [address] Abstract, Provider Social History Tobacco Use Types [...] filedocumented in this encounter Care Teams Auto Parts Salesperson Relationship Specialty Start Date End Date Martha Grey APRN PCP - General Internal Medicine 01/20/20 05/16/22 Mike Burns NP PCP - General Family Practice 05/17/22 11/20/22 Martha Grey APRN PCP - General Internal Medicine 11/21/22 documented as of this encounter
--- OUTSIDE RECORDS SUMMARY | 2025-02-16 14:51 | XMS_ITS | Encounter Summary ---
Author Organization [facility] Address [address] [place] [address] Care Team Providers Care Stove Polisher Name Role Phone Lisa Shin Primary Care Provider UnavailSiddhartha Le MD Primary Care Provider [phone] Emerald Yu MD Primary Care Provider Unavailable [facility] Primary Care Provider UnavailEmerald Rodriguez MD Primary Care Provider Unavailable [place] Colasacco, Susannah DO Primary Care Pro vider Unavailable Emerald Yu MD Primary Care Provider Unavailable [place] Colasacco, Susannah DO Primary Care Pro vider Unavailable Siddhartha Oakes MD Primary Care Provider [phone] Martha Grey APRN Primary Care Provider Unav ailable Martha Grey APRN Primary Care Provider Unav ailable Mike Burns NP Primary Care Provider Unavail able Martha Grey APRN Primary Care Provider Unav ailable Reason for Visit * Reason Onset Date Comments Eye Exam 02/06/2012 Encounter Details Date Type Department Care Team Description 02/06/2012 Telephone [facility] [address] [place] [address] Lisa Castillo, OD Eye Exam Social History Tobacco Use Types Packs/Day Years [...] encounter Miscellaneous Notes * Telephone Encounter - Lexie Camargo - 02/06/2012 9:27 AM EDT MSG LEFT TO SCHEDULE EYE EXAM AFTER 01/31/13 2ND MSG LEFT. LETTER MAILED TO PT documented in this encounter Plan of Treatment Not on file documented as of this encounter Visit Diagnoses Not on filedocumented in this encounter Care Teams Stove Polisher Relationship Specialty Start Date End Date Lisa Shin PCP - General Family Practice 10/23/11 03/04/12 Siddhartha Oakes MD [address] [place] [address] PCP - General Internal Medicine 03/05/12 07/13/12 Emerald Yu MD [address] [place] [address] PCP - General Internal Medicine 07/14/12 10/13/13 [facility], Pcp [address] [place] [address] PCP - General Internal Medicine 10/14/13 12/17/13 Emerald Yu MD [address] [place] [address] PCP - General Internal Medicine 12/18/13 02/13/15 Susannah Rendon DO [address] [place] [address] PCP - General Internal Medicine 02/14/15 05/09/15 Emerald Yu MD [address] [place] [address] PCP - General Internal Medicine 05/10/15 06/30/15 Susannah Rendon DO [address] [place] [address] PCP - General Internal Medicine 07/01/15 05/05/19 Siddhartha Oakes MD [address] [place] [address] PCP - General Internal Medicine 05/06/19 01/12/20 Martha Grey APRN [address] [place] [address] PCP - General Internal Medicine 01/13/20 01/19/20 Martha Grey APRN [address] [place] [address] PCP - General Internal Medicine 01/20/20 05/16/22 Mike Burns NP [address] [place] [address] PCP - General Family Practice 05/17/22 11/20/22 Martha Grey APRN [address] [place] [address] PCP - General Internal Medicine 11/21/22 documented as of this encounter
--- OUTSIDE RECORDS SUMMARY | 2025-02-16 14:51 | XMS_ITS | Encounter Summary ---
Author Organization [facility] Address [address] [place] [address] Care Team Providers Care Telephone Answerer Name Role Phone Siddhartha Oakes MD Primary Care Provider [phone] Martha Grey APRN Primary Care Provider Unav ailable Martha Grey APRN Primary Care Provider Unav ailable Mike Burns NP Primary Care Provider Unavail able Martha Grey APRN Primary Care Provider Unav ailable Encounter Details Date Type Department Care Team Description 09/21/2019 [facility] Medical Records [address] [place] [address] Abstract, Provider Social History Tobacco Use Types [...] on filedocumented in this encounter Care Teams Telephone Answerer Relationship Specialty Start Date End Date Siddhartha Oakes MD [address] [place] [address] PCP - General Internal Medicine 05/06/19 01/12/20 Martha Grey APRN [address] [place] [address] PCP - General Internal Medicine 01/13/20 01/19/20 Martha Grey, PANFILO [address] [place] [address] PCP - General Internal Medicine 01/20/20 05/16/22 Mike Burns NP [address] [place] [address] PCP - General Family Practice 05/17/22 11/20/22 Martha Grey APRN [address] [place] [address] PCP - General Internal Medicine 11/21/22 documented as of this encounter
--- OUTSIDE RECORDS SUMMARY | 2025-02-16 14:51 | XMS_ITS | Data Portability ---
Author Organization [facility], Internal Medicine [place] Address [address] [place] [address] Care Team Providers Care Filling Station Equipment Mechanic Name Role Phone BENJAMIN MENJIVAR Primary Care Provider [phone] Assessment Encounter Date Assessment Date Assessment LastModified [...] are varying amounts of side effects from huqvj-dl-gddjp. Patient can expect to lose between 15 [...] of 30 minutes with the patient in aani-nw-jaxr consultation on the video +30 minutes both [...] Details Recorded Time Increased body mass index 00202338 Active 2023 Flori Mo null, [place] - [employer] 4 14:28:16 Cobalamin deficiency 979533031 Active 2023 [place] - [employer] 4 14:28:31 Anemia 823900454 Active 2023 [place] - [employer] 4 14:28:38 Attention deficit hyperactivity disorder, predominantly inattentive type 43455298 Active 2023 [place] - [employer] 4 14:28:58 Generalized anxiety disorder 93647136 Active 2023 [place] - [employer] 4 14:29:08 Bipolar disorder 73264451 Active 2023 [place] - [employer] 4 14:29:27 Gastroparesis syndrome 071287795 Active 2023 Jian Bello MD [address] [place] [address], [address], [facility] 4 10:36:46 Body mass index 40+ - severely obese 648869523 Active 2023 Jian Bello MD [address] [place] [address] [address], [address], [facility] 4 10:37:09 Problem Notes None recorded. 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 Procedure Notes None recorded. Medical Equipment None Reported. Allergies Allergen ID Allergen Name Allergen Category Reaction Reaction Severity Criticality Documentation Date Start Date Code Code System Note Provider Name and Address Organization Details Recorded Time 3858 adhesive tape environme nt,medica tion Not available Not available Not available 05/12/2024 41488 UNK Flori Mo tank [facility] [employer] 4 14:27:18 3859 amoxicill in medicatio n Not available Not available Not available 05/12/2024 723 RxNorm Flori Mo tank [facility] [employer] 4 14:27:26 3860 clindamyc in Not available Not available Not available Not available 05/12/2024 2582 RxNorm Flori Mo tank [facility] [employer] 4 14:27:32 3861 tapentado l medicatio n Not available Not available Not available 05/12/2024 70339 0 RxNorm Flori Mo tank [facility] [employer] 4 14:27:39 3862 venlafaxi ne medicatio n Not available Not available Not available 05/12/2024 41665 RxNorm Flori Mo tank [facility] [employer] 4 14:27:48 Medications Name Sig Start Date [...] Address Organization Details Last Updated DateTime 05/21/2024 39948.63 g 40.4 kg/m2 142.24 cm Jian Bello MD [address] [place] [address], [facility] [address], [address], [facility] 05/21/2024 15:49:17 Social History Question Answer Notes LastModified by Organization Details LastModified Time Tobacco Smoking Status Never Smoker Jian Bello MD [address] [place] [address] 3, [place], [address], [facility] 05/21/2024 15:55:21 How Much Alcohol Do You [...] Yes [email or web address] Information not available 05/21/2024 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 [email or web address] Information not available 05/21/2024 History [...] SNOMED-CT Code Diagnosis ICD10 Code Diagnosis Note [id number] Jian Bello MD [address] [address] 05/21/2024 15:45:05 05/25/2024 16:24:03 Increased body mass index 04963196 E66.9 Bipolar disorder 9977135 4 F31.9 Attention deficit hyperactivity disorder, predominantly inattentive type 42624182 F90.0 Gastropare sis syndrome 922524391 K31.84 Body mass index 40+ - severely obese 182301180 Z68.41 Health Concerns Section Related Observation LastModified by Organization Detai ls LastModified Time None Recorded Concern Status LastModified by Organization Details LastModified Time None Recorded Advance Directives Directive None Recorded Payers Encounter Date Sequence Insurance Name Policy Number Policy Adames Covered Member ID Adames Member ID Guarantor Name 05/21/2024 1 [place] [id number] Osiel Charles [id number] Deyanira Charles Notes Date Note Type Note [...] gastric motility emptying scan Jian Bello MD [address] [place] [address], [address], [place], [address], [facility] - [employer] 05/25/2024 10:37:29 OBGyn Episode No OBEpisode recorded.
--- OUTSIDE RECORDS SUMMARY | 2025-02-16 14:51 | XMS_ITS | Encounter Summary ---
Author Organization [facility] Address [address] [place] [address] Care Team Providers Care Cold Type Artist Name Role Phone Siddhartha Oakes MD Primary Care Provider [phone] Martha Grey APRN Primary Care Provider Unav ailable Martha Grey APRN Primary Care Provider Unav ailable Mike Burns NP Primary Care Provider Unavail able Martha Gery APRN Primary Care Provider Unav ailable Encounter Details Date Type Department Care Team Description 01/08/2020 [facility] Medical Records [address] [place] [address] Abstract, Provider Social History Tobacco Use Types [...] on filedocumented in this encounter Care Teams Cold Type Artist Relationship Specialty Start Date End Date Siddhartha Oakes MD [address] [place] [address] PCP - General Internal Medicine 05/06/19 01/12/20 Martha Grey APRN [address] [place] [address] PCP - General Internal Medicine 01/13/20 01/19/20 Martha Grey APRN [address] [place] [address] PCP - General Internal Medicine 01/20/20 05/16/22 Mike Burns NP [address] [place] [address] PCP - General Family Practice 05/17/22 11/20/22 Martha Grey APRN [address] [place] [address] PCP - General Internal Medicine 11/21/22 documented as of this encounter
--- OUTSIDE RECORDS SUMMARY | 2025-02-16 14:51 | XMS_ITS | Encounter Summary ---
Author Organization [facility] Address [address] [place] [address] Care Team Providers Care Geneticist Name Role Phone Martha Grey APRN Primary Care Provider Unav ailable Mike Burns NP Primary Care Provider Unavail able Martha Grey APRN Primary Care Provider Unav ailable Reason for Visit * Reason Onset Date Comments Provider Call Back 03/07/2021 Encounter Details Date Type Department Care Team Description 03/07/2021 Telephone Adult Medicine [address] [address] Martha Grey APRN Provider Call Back Social [...] on filedocumented in this encounter Care Teams Geneticist Relationship Specialty Start Date End Date Martha Grey APRN PCP - General Internal Medicine 01/20/20 05/16/22 Mike Burns NP PCP - General Family Practice 05/17/22 11/20/22 Martha Grey APRN PCP - General Internal Medicine 11/21/22 documented as of this encounter
--- OUTSIDE RECORDS SUMMARY | 2025-02-16 14:51 | XMS_ITS | Encounter Summary ---
Author Organization [facility] Address [address] [place] [address] Care Team Providers Care Hospital Admissions Officer Name Role Phone Emerald Yu MD Primary Care Provider Unavailable Oj Boyceo, Susannah DO Primary Care Pro vider Unavailable Emerald Yu MD Primary Care Provider Unavailable Oj Rnagel, Susannah DO Primary Care Pro vider Unavailable Siddhartha Oakes MD Primary Care Provider [phone] Martha Grey APRN Primary Care Provider Unav ailable Martha Grey APRN Primary Care Provider Unav ailable Mike Burns NP Primary Care Provider Unavail able Martha Grey APRN Primary Care Provider Unav ailable Encounter Details Date Type Department Care Team Description 07/28/2014 Php Mysql Web Developer Report Medical Records [address] [place] [address] Bimal Damon Social History Tobacco Use Types [...] on filedocumented in this encounter Care Teams Hospital Admissions Officer Relationship Specialty Start Date End Date Emerald Yu MD PCP - General Internal Medicine 12/18/1302/04 Susannah Rendon DO PCP - General Internal Medicine 02/14/15 05/09/15 Emerald Yu MD PCP - General Internal Medicine 05/10/1506/08 Susannah Rendon DO PCP - General Internal Medicine 07/01/15 05/05/19 Siddhartha Oakes MD [address] [place] [address] PCP - General Internal Medicine 05/06/19 01/12/20 Martha Gery APRN [address] [place] [address] PCP - General Internal Medicine 01/13/20 01/19/20 Martha Grey APRN [address] [place] [address] PCP - General Internal Medicine 01/20/20 05/16/22 Mike Burns NP [address] [place] [address] PCP - General Family Practice 05/17/22 11/20/22 Martha Grey APRN [address] [place] [address] PCP - General Internal Medicine 11/21/22 documented as of this encounter
--- OUTSIDE RECORDS SUMMARY | 2025-02-16 14:51 | XMS_ITS | Encounter Summary ---
Author Organization [facility] Address [address] [place] [address] Care Team Providers Care Sleeve Turner Name Role Phone Martha Grey APRN Primary Care Provider Unav ailable Mike Burns NP Primary Care Provider Unavail able Martha Grey APRN Primary Care Provider Unav ailable Reason for Visit * Reason Onset Date Comments TEST RESULTS 01/06/2021 Encounter Details Date Type Department Care Team Description 01/06/2021 Telephone Adult Medicine [facility] [address] [place] [address] Martha Grey APRN TEST RESULTS Social History [...] performed: 01/04/21 Where was the test performed: [place] Who ordered this test?: Maria Elena Mirza [...] on filedocumented in this encounter Care Teams Sleeve Turner Relationship Specialty Start Date End Date Martha Grey APRN PCP - General Internal Medicine 01/20/20 05/16/22 Mike Burns NP PCP - General Family Practice 05/17/22 11/20/22 Martha Grey APRN PCP - General Internal Medicine 11/21/22 documented as of this encounter
--- OUTSIDE RECORDS SUMMARY | 2025-02-16 14:51 | XMS_ITS | Encounter Summary ---
Author Organization [facility] Address [address] [place] [address] Care Team Providers Care Chief Crew Scheduler Name Role Phone Siddhartha Oakes MD Primary Care Provider [phone] Martha Grey APRN Primary Care Provider Unav ailable Martha Grey APRN Primary Care Provider Unav ailable Mike Burns NP Primary Care Provider Unavail able Martha Grey APRN Primary Care Provider Unav ailable Encounter Details Date Type Department Care Team Description 12/01/2019 [facility] Medical Records [address] [place] [address] Jian Pimentel DO Social History Tobacco Use [...] filedocumented in this encounter Care Teams Chief Crew Scheduler Relationship Specialty Start Date End Date Siddhartha Oakes MD [address] [place] [address] PCP - General Internal Medicine 05/06/19 01/12/20 Martha Grey APRN [address] [place] [address] PCP - General Internal Medicine 01/13/20 01/19/20 Martha Grey APRN [address] [place] [address] PCP - General Internal Medicine 01/20/20 05/16/22 Mike Burns NP [address] [place] [address] PCP - General Family Practice 05/17/22 11/20/22 Martha Grey APRN [address] [place] [address] PCP - General Internal Medicine 11/21/22 documented as of this encounter
--- OUTSIDE RECORDS SUMMARY | 2025-02-16 14:51 | XMS_ITS | Encounter Summary ---
Author Organization [facility] Address [address] [place] [address] Care Team Providers Care Rail Bonder Name Role Phone Martha Grey APRN Primary Care Provider Unav ailable Mike Burns NP Primary Care Provider Unavail able Martha Grey APRN Primary Care Provider Unav ailable Reason for Visit * Reason Comments E-prescribe Rx Request Encounter Details Date Type Department Care Team Description 02/24/2021 Refill Adult Medicine [address] [address] Martha Grey APRN E-prescribe Rx Request Social [...] N/A Patients current insurance carrier is: Payor: [facility] / Plan: CC-KRISTYN SILVER TYPE 2 / Product Type: HMO [id number] documented in this encounter Plan of Treatment Not on file documented as of this encounter Visit Diagnoses Not on filedocumented in this encounter Care Teams Rail Bonder Relationship Specialty Start Date End Date Martha Grey APRN PCP - General Internal Medicine 01/20/20 05/16/22 Mike Burns NP PCP - General Family Practice 05/17/22 11/20/22 Martha Grey APRN PCP - General Internal Medicine 11/21/22 documented as of this encounter
--- OUTSIDE RECORDS SUMMARY | 2025-02-16 14:51 | XMS_ITS | Encounter Summary ---
Author Organization [facility] Address [address] [place] [address] Care Team Providers Care Detailer School Photographs Name Role Phone Matrha Grey APRN Primary Care Provider Unav ailable Mike Burns NP Primary Care Provider Unavail able Martha Grey APRN Primary Care Provider Unav ailable Reason for Referral * EXTERNAL (Routine) - Authorized/Booked Specialty Diagnoses / Procedures Referred By Contac t Referred To Contact PAIN MANAGEMENT / Pain Management Procedures REFERRAL TO PAIN MANAGEMENT Levy Rosenberg PA-C [facility] External Pain Man Referral ID Status Reason Start Date Expiration Date V isits Requested Visits Authorized [id number] Authorized/B ooked 07/21/2021 10/24/2021 1 1 Encounter Details Date Type Department Care Team Description 07/21/2021 Orders Only Physiatry - [address] [address] Levy Rosenberg PA-C Lumbar radiculitis (Primary Dx); [...] myelopathy documented in this encounter Care Teams Detailer School Photographs Relationship Specialty Start Date End Date Martha Grey APRN PCP - General Internal Medicine 01/20/20 05/16/22 Mike Burns NP PCP - General Family Practice 05/17/22 11/20/22 Martha Grey APRN PCP - General Internal Medicine 11/21/22 documented as of this encounter
--- OUTSIDE RECORDS SUMMARY | 2025-02-16 14:51 | XMS_ITS | Encounter Summary ---
Author Organization [facility] Address [address] [place] [address] Care Team Providers Care Immunopathologist Name Role Phone Radha Martel PA-C Primary Care Provi mckenna Vinod Robles MD Unavailable [phone] Encounter Details Date Type Department Care Team (Late st Contact Info) Description 03/12/2024 Scanned Document [facility] Physicians Department Of Hematology/Oncology [place] [address] [place] [phone] Jhoana Wilkins MD [address] [facility] [address] [place] [address] Social History Tobacco Use Types Packs/Day Years [...] 8:00 AM EDT Consult [facility] [address] [facility] [address] [place] [address] Eliseo Molina APRN [address] [facility] [address] [place] [address] 04/01/2025 9:45 AM EDT [facility] Department of Cardiology [place] [address] [facility] [address] [place] [address] Antonio Puente MD 160 [facility] 100 [place] [address] 04/13/2025 8:30 AM EDT [facility] [address] [address] Theodora Yap APRN [address] [address] 05/20/2025 3:45 PM EDT Office Visit [facility] 100 [facility] [address] [place] [address] Radha Martel PA-C [address] [place] [address] 05/27/2025 8:00 AM EDT [facility] [address] [address] Raphael Mcdaniel MD 31 [place] [address] 07/22/2025 9:20 AM EDT [facility] Department Of Hematology/Oncology [place] [address] [place] [address] Jhoana Wilkins MD 300 [facility] [address] [place], [place] [address] documented as of this encounter Procedures Procedure Name Priority Date/Time Associated Diagnosis Comments LAB RESULT 03/12/2024 4:09 PM EDT documented in this encounter Results * LAB RESULT (03/12/2024 4:09 PM EDT) us Jhoana Wilkins MD HX AMB PROCEDURES Final Result documented in this encounter Visit Diagnoses Not on filedocumented in this encounter Care Teams Immunopathologist Relationship Specialty Start Date End Date Radha Martel PA-C [address] [place] [address] PCP - General Internal Medicine 02/24/24 Vinod Robles MD [address] [place] [address] Primary Health Teacher Cardiovascular Disease 09/02/24 documented as of this encounter
--- OUTSIDE RECORDS SUMMARY | 2025-02-16 14:51 | XMS_ITS | Encounter Summary ---
Author Organization [facility] Address [address] [place] [address] Care Team Providers Care Digital Marketing Associate Name Role Phone Martha Grey APRN Primary Care Provider Unav ailable Mike Burns NP Primary Care Provider Unavail able Martha Grey APRN Primary Care Provider Unav ailable Encounter Details Date Type Department Care Team Description 02/08/2021 Recapper Report Medical Records [address] [place] [address] Social History Tobacco Use Types Packs/Day Years [...] filedocumented in this encounter Care Teams Digital Marketing Associate Relationship Specialty Start Date End Date Martha Grey APRN PCP - General Internal Medicine 01/20/20 05/16/22 Mike Burns NP PCP - General Family Practice 05/17/22 11/20/22 Martha Grey APRN PCP - General Internal Medicine 11/21/22 documented as of this encounter
--- OUTSIDE RECORDS SUMMARY | 2025-02-16 14:51 | XMS_ITS | Encounter Summary ---
Author Organization [facility] Address [address] [place] [address] Care Team Providers Care Chief Yeoman Name Role Phone Siddhartha Oakes MD Primary Care Provider [phone] Martha Grey APRN Primary Care Provider Unav ailable Martha Grey APRN Primary Care Provider Unav ailable Mike Burns NP Primary Care Provider Unavail able Martha Grey APRN Primary Care Provider Unav ailable Encounter Details Date Type Department Care Team Description 12/25/2019 Orders Only Podiatry - [address] [address] Toby Lund DPM Social History Tobacco Use [...] filedocumented in this encounter Care Teams Chief Yeoman Relationship Specialty Start Date End Date Siddhartha Oakes MD [address] [place] [address] PCP - General Internal Medicine 05/06/19 01/12/20 Martha Grey APRN [address] [place] [address] PCP - General Internal Medicine 01/13/20 01/19/20 Martha Grey APRN [address] [place] [address] PCP - General Internal Medicine 01/20/20 05/16/22 Mike Burns NP [address] [place] [address] PCP - General Family Practice 05/17/22 11/20/22 Martha Grey APRN [address] [place] [address] PCP - General Internal Medicine 11/21/22 documented as of this encounter
--- OUTSIDE RECORDS SUMMARY | 2025-02-16 14:51 | XMS_ITS | Encounter Summary ---
Author Organization [facility] Address [address] [place] [address] Care Team Providers Care Pipe Racker Name Role Phone Susannah Rendon DO Primary Care Pro vider Unavailable Siddhartha Oakes MD Primary Care Provider [phone] Martha Grey APRN Primary Care Provider Unav ailable Martha Grey APRN Primary Care Provider Unav ailable Mike Burns NP Primary Care Provider Unavail able Martha Grey APRN Primary Care Provider Unav ailable Reason for Visit * Reason Onset Date Comments TEST RESULTS 08/04/2015 Encounter Details Date Type Department Care Team Description 08/04/2015 Telephone OBGYN - [place] [address] Ariel Varner MD 4 [place] [address] TEST RESULTS Social History Tobacco [...] requests that I transfer her call to [place]. Call transferred per Valerie in [place] to [phone]. * Telephone Encounter - Shelbi [...] left for patient to return call to [facility] Ob triage. * Telephone Encounter - [...] on filedocumented in this encounter Care Teams Pipe Racker Relationship Specialty Start Date End Date Susannah Rendon DO PCP - General Internal Medicine 07/01/15 05/05/19 Siddhartha Oakes MD [address] [place] [address] PCP - General Internal Medicine 05/06/19 01/12/20 Martha Grey APRN [address] [place] [address] PCP - General Internal Medicine 01/13/20 01/19/20 Martha Grey APRN [address] [place] [address] PCP - General Internal Medicine 01/20/20 05/16/22 Mike Burns NP [address] [place] [address] PCP - General Family Practice 05/17/22 11/20/22 Martha Grey APRN [address] [place] [address] PCP - General Internal Medicine 11/21/22 documented as of this encounter
--- OUTSIDE RECORDS SUMMARY | 2025-02-16 14:51 | XMS_ITS | Encounter Summary ---
Author Organization [facility] Address [address] [place] [address] Care Team Providers Care Die Machine Operator Name Role Phone Radha Martel PA-C Primary Care Provi mckenna Vinod Robles MD Unavailable [phone] Encounter Details Date Type Department Care Team (Late st Contact Info) Description 03/13/2024 Telephone [facility] [address] [place] [address] Radha Martel PA-C [address] [place] [address] Social History Tobacco Use Types Packs/Day Years [...] Description 02/19/2025 8:00 AM EDT Consult Orthopedic [facility] 31 [facility] 100 [place] [address] Eliseo Molina APRN 499 [facility] 300 [place] [address] 04/01/2025 9:45 AM EDT Office Visit [facility] Department of Cardiology [place] [address] [address] Antonio Puente MD [address] [address] 04/13/2025 8:30 AM EDT Office Visit Orthopedic [address] [address] Theodora Yap APRN [address] [address] 05/20/2025 3:45 PM EDT Office Visit [facility] Medical [facility] 100 [facility] [address] [place] [address] Radha Martel PA-C [address] [place] [address] 05/27/2025 8:00 AM EDT Office Visit Orthopedic [address] [address] Raphael Mcdaniel MD [address] [place] [address] 07/22/2025 9:20 AM EDT Office Visit [facility] Physicians Department Of Hematology/Oncology [place] [address] [place] [address] Jhoana Wilkins MD [address] [place] [facility] [address] [place] [address] documented as of this encounter Visit Diagnoses Not on filedocumented in this encounter Care Teams Die Machine Operator Relationship Specialty Start Date End Date Radha Martel PA-C [address] [place] [address] PCP - General Internal Medicine 02/24/24 Vinod Robles MD [address] [place] [address] Primary Kiln Drawer Cardiovascular Disease 09/02/24 documented as of this encounter
--- OUTSIDE RECORDS SUMMARY | 2025-02-16 14:51 | XMS_ITS | Encounter Summary ---
Author Organization [facility] Address [address] [place] [address] Care Team Providers Care Mechanical Engineering Professor Name Role Phone Susannah Rendon DO Primary Care Pro vider Unavailable Siddhartha Oakes MD Primary Care Provider [phone] Martha Grey APRN Primary Care Provider Unav ailable Martha Grye APRN Primary Care Provider Unav ailable Mike Burns NP Primary Care Provider Unavail able Martha Grey APRN Primary Care Provider Unav ailable Encounter Details Date Type Department Care Team Description 12/28/2016 Refill OBGYN - [place] [address] [place] [address] Eliseo Rodríguez MD Social History Tobacco Use [...] MG tablet [Eliseo Rodríguez MD] [facility] [address] [place], [place] [address] Comment: documented in this encounter Plan of Treatment Not on file documented as of this encounter Visit Diagnoses Not on filedocumented in this encounter Care Teams Mechanical Engineering Professor Relationship Specialty Start Date End Date Susannah Rendon DO PCP - General Internal Medicine 07/01/15 05/05/19 Siddhartha Oakes MD [address] [place] [address] PCP - General Internal Medicine 05/06/19 01/12/20 Martha Grey APRN [address] [place] [address] PCP - General Internal Medicine 01/13/20 01/19/20 Martha Grey APRN [address] [place] [address] PCP - General Internal Medicine 01/20/20 05/16/22 Mike Burns NP [address] [place] [address] PCP - General Family Practice 05/17/22 11/20/22 Martha Grey, JEWELRY SETTER [address] [place] [address] PCP - General Internal Medicine 11/21/22 documented as of this encounter
--- OUTSIDE RECORDS SUMMARY | 2025-02-16 14:51 | XMS_ITS | Encounter Summary ---
Author Organization [facility] Address [address] [place] [address] Care Team Providers Care Furrier Shop Supervisor Name Role Phone Radha Martel PA-C Primary Care Provi mckenna Vinod Robles MD Unavailable [phone] Reason for Visit * Reason Comments Other Encounter Details Date Type Department Care Team (Late st Contact Info) Description 03/23/2024 Telephone [facility] Center [address] [place] [address] Radha Martel PA-C [address] [place] [address] Other Social History Tobacco Use Types Packs/Day [...] 8:00 AM EDT Consult [facility] 31 [facility] [address] [place] [address] Eliseo Molina APRN 499 [facility] [address] [place] [address] 04/01/2025 9:45 AM EDT Office [facility] Department of Cardiology [place] [address] [facility] [address] [place] [address] Antonio Puente MD 160 [facility] 100 [place] [address] 04/13/2025 8:30 AM EDT [facility] [address] [address] Theodora Yap APRN [address] [address] 05/20/2025 3:45 PM EDT Office Visit [facility] 100 [facility] [address] [place] [address] Radha Martel PA-C 100 [place] [address] 05/27/2025 8:00 AM EDT [facility] [address] [address] Raphael Mcdaniel MD 31 [place] [address] 07/22/2025 9:20 AM EDT Office [facility] Department Of Hematology/Oncology [place] [address] [place] [address] Jhoana Wilkins MD 300 [facility] [address] [place], [place] [address] documented as of this encounter Visit Diagnoses Not on filedocumented in this encounter Care Teams Furrier Shop Supervisor Relationship Specialty Start Date End Date Radha Martel PA-C [address] [place] [address] PCP - General Internal Medicine 02/24/24 Vinod Robles MD [address] [place] [address] Primary Paint Roller Assembler Cardiovascular Disease 09/02/24 documented as of this encounter
--- OUTSIDE RECORDS SUMMARY | 2025-02-16 14:51 | XMS_ITS | Encounter Summary ---
Author Organization [facility] Address [address] [place] [id number] Care Team Providers Care Novelty Printing Machine Operator Name Role Phone Radha Martel PA-C Primary Care Provi mckenna Vinod Robles MD Unavailable [phone] Encounter Details Date Type Department Care Team (Late st Contact Info) Description 03/10/2024 Scanned Document [facility] Department Of Hematology/Oncology [place] [address] [place] [address] [phone] Jhoana Wilkins MD 300 [facility] [address] 4 [place] [address] Social History Tobacco Use Types Packs/Day Years [...] 8:00 AM EDT [facility] [address] [place] [address] Eliseo Molina APRN 499 [facility] [address] [place] [address] 04/01/2025 9:45 AM EDT Office Visit [facility] Department of Cardiology [place] 160 [facility] [address] [place] [address] Antonio Puente MD 160 [facility] 100 [place] [address] 04/13/2025 8:30 AM EDT [facility] [address] [address] Theodora Yap APRN [address] [address] 05/20/2025 3:45 PM EDT Office Visit [facility] 100 [facility] [address] [place] [address] Radha Martel PA-C 100 [place] [address] 05/27/2025 8:00 AM EDT [facility] [address] [address] Raphael Mcdaniel MD 31 [place] [address] 07/22/2025 9:20 AM EDT Office Visit [facility] Department Of Hematology/Oncology [place] [address] [place] [phone] Jhoana Wilkins MD 300 [facility] [address] [place], [place] [address] documented as of this encounter Visit Diagnoses Not on filedocumented in this encounter Care Teams Novelty Printing Machine Operator Relationship Specialty Start Date End Date Radha Martel PA-C [address] [place] [address] PCP - General Internal Medicine 02/24/24 Vinod Robles MD [address] [place] [address] Primary Park Maintenance Technician Cardiovascular Disease 09/02/24 documented as of this encounter
--- OUTSIDE RECORDS SUMMARY | 2025-02-16 14:51 | XMS_ITS | Encounter Summary ---
Author Organization [facility] Address [address] [place] [address] Care Team Providers Care News Specialist Name Role Phone Emerald Yu MD Primary Care Provider Unavailable Oj Boyceo, Susannah DO Primary Care Pro vider Unavailable Emerald Yu MD Primary Care Provider Unavailable Oj Rangel, Susannah DO Primary Care Pro vider Unavailable Siddhartha Oakes MD Primary Care Provider [phone] Martha Grey APRN Primary Care Provider Unav ailable Martha Grey APRN Primary Care Provider Unav ailable Mike Burns NP Primary Care Provider Unavail able Martha Grey APRN Primary Care Provider Unav ailable Encounter Details Date Type Department Care Team Description 08/09/2014 Transfer Records Medical Records [address] [place] [address] Surgical, [facility] Social History Tobacco Use Types Packs/Day Years [...] on filedocumented in this encounter Care Teams News Specialist Relationship Specialty Start Date End Date Emerald Yu MD PCP - General Internal Medicine 12/18/1302/04 Susannah Rendon DO PCP - General Internal Medicine 02/14/15 05/09/15 Emerald Yu MD PCP - General Internal Medicine 05/10/1506/08 Susannah Rendon DO PCP - General Internal Medicine 07/01/15 05/05/19 Siddhartha Oakes MD 305 [place] [address] PCP - General Internal Medicine 05/06/19 01/12/20 Martha Grey APRN [address] [place] [address] PCP - General Internal Medicine 01/13/20 01/19/20 Martha Grey APRN [address] [place] [address] PCP - General Internal Medicine 01/20/20 05/16/22 Mike Burns NP 305 [place] [address] PCP - General Family Practice 05/17/22 11/20/22 Martha Grey APRN [address] [place] [address] PCP - General Internal Medicine 11/21/22 documented as of this encounter
--- OUTSIDE RECORDS SUMMARY | 2025-02-16 14:51 | XMS_ITS | Encounter Summary ---
Author Organization [facility] Address [address] [place] [address] Care Team Providers Care Microarray Operations Vice President Name Role Phone Radha Martel PA-C Primary Care Provi mckenna Vinod Robles MD Unavailable [phone] Encounter Details Date Type Department Care Team (Late st Contact Info) Description 02/10/2025 Scanned Document [facility] [address] [place] [address] Neurology, Scan Social History Tobacco Use Types [...] 8:00 AM EDT Consult [facility] 31 [facility] [address] [place] [address] Eliseo Molina, PANFILO 499 [facility] [address] [place] [address] 04/01/2025 9:45 AM EDT Office Visit [facility] Department of Cardiology [place] 160 [facility] [address] [place] [address] Antonio Puente MD 160 [facility] 100 [place] [address] 04/13/2025 8:30 AM EDT [facility] [address] [address] Theodora Yap APRN [address] [address] 05/20/2025 3:45 PM EDT Office Visit [facility] 100 [facility] [address] [place] [address] Radha Martel PA-C [address] [place] [address] 05/27/2025 8:00 AM EDT [facility] [address] [address] Raphael Mcdaniel MD 31 [place] [address] 07/22/2025 9:20 AM EDT Office Visit [facility] Department Of Hematology/Oncology [place] [address] [place] [address] Jhoana Wilkins MD 300 [facility] [address] 4 [place], [place] [address] documented as of this encounter Visit Diagnoses Not on filedocumented in this encounter Care Teams Microarray Operations Vice President Relationship Specialty Start Date End Date Radha Martel PA-C [address] [place] [address] PCP - General Internal Medicine 02/24/24 Vinod Robles MD [address] [place] [address] Primary Quality Management Coordinator Cardiovascular Disease 09/02/24 documented as of this encounter
--- OUTSIDE RECORDS SUMMARY | 2025-02-16 14:51 | XMS_ITS | Encounter Summary ---
Author Organization [facility] Address [address] [place] [address] Care Team Providers Care Survey Research Manager Name Role Phone Emerald Yu MD Primary Care Provider Unavailable Oj Boyceo, Susannah DO Primary Care Pro vider Unavailable Emerald Yu MD Primary Care Provider Unavailable jO Rangel, Susannah DO Primary Care Pro vider Unavailable Siddhartha Oakes MD Primary Care Provider [phone] Martha Grey APRN Primary Care Provider Unav ailable Martha Grey APRN Primary Care Provider Unav ailable Mike Burns NP Primary Care Provider Unavail able Martha Grey APRN Primary Care Provider Unav ailable Reason for Visit * Reason Onset Date Comments Medical Records 08/04/2014 cn & egd Encounter Details Date Type Department Care Team Description 08/04/2014 Telephone Gastroenterology - [address] [address] Alin Richards PA-C Medical Records (cn & [...] on filedocumented in this encounter Care Teams Survey Research Manager Relationship Specialty Start Date End Date Emearld Yu MD PCP - General Internal Medicine 12/18/1302/04 Susannah Rendon DO PCP - General Internal Medicine 02/14/15 05/09/15 Emerald Yu MD PCP - General Internal Medicine 05/10/1506/08 Susannah Rendon DO PCP - General Internal Medicine 07/01/15 05/05/19 Siddhartha Oakes MD [address] [place] [address] PCP - General Internal Medicine 05/06/19 01/12/20 Martha Grey APRN [address] [place] [address] PCP - General Internal Medicine 01/13/20 01/19/20 Martha Grey APRN [address] [place] [address] PCP - General Internal Medicine 01/20/20 05/16/22 Mike Burns NP [address] [place] [address] PCP - General Family Practice 05/17/22 11/20/22 Martha Grey APRN [address] [place] [address] PCP - General Internal Medicine 11/21/22 documented as of this encounter
--- OUTSIDE RECORDS SUMMARY | 2025-02-16 14:51 | XMS_ITS | Encounter Summary ---
Author Organization [facility] Address [address] [place], [place] [address] Care Team Providers Care Engine Test Cell Technician Name Role Phone Radha Martel PA-C Primary Care Provi mckenna Vinod Robles MD Unavailable [phone] Encounter Details Date Type Department Care Team (Late st Contact Info) Description 04/02/2024 Scanned Document [address] [phone] Radha Martel PA-C [address] [place] [address] Social History Tobacco Use Types Packs/Day Years [...] 8:00 AM EDT Consult [facility] 31 [facility] [address] [place] [address] Eliseo Molina APRN 499 [address] [place] [address] 04/01/2025 9:45 AM EDT Office Visit [facility] Department of Cardiology [place] 160 [facility] [address] [place] [address] Antonio Puente MD 160 [facility] 100 [place] [address] 04/13/2025 8:30 AM EDT [facility] [address] [address] Theodora Yap APRN [address] [address] 05/20/2025 3:45 PM EDT Office Visit [facility] 100 [facility] 101 [place] [address] Radha Martel PA-C 100 [place] [address] 05/27/2025 8:00 AM EDT [facility] [address] [address] Raphael Mcdaniel MD 31 [place] [address] 07/22/2025 9:20 AM EDT Office Visit [facility] Department Of Hematology/Oncology [place] [address] [place] [address] Jhoana Wilkins MD 300 [facility] [address] [place], [place] [address] documented as of this encounter Visit Diagnoses Not on filedocumented in this encounter Care Teams Engine Test Cell Technician Relationship Specialty Start Date End Date Radha Martel PA-C 100 [place] [address] PCP - General Internal Medicine 02/24/24 Vinod Robles MD [address] [place] [address] Primary Power Regulator Cardiovascular Disease 09/02/24 documented as of this encounter
--- OUTSIDE RECORDS SUMMARY | 2025-02-16 14:51 | XMS_ITS | Encounter Summary ---
Author Organization [facility] Address [address] [place] [address] Care Team Providers Care Convenience Store Clerk Name Role Phone Susannah Rendon DO Primary Care Pro vider Unavailable Siddhartha Oakes MD Primary Care Provider [phone] Martha Grey APRN Primary Care Provider Unav ailable Martha Grey APRN Primary Care Provider Unav ailable Mike Burns NP Primary Care Provider Unavail able Martha Grey APRN Primary Care Provider Unav ailable Encounter Details Date Type Department Care Team Description 01/16/2017 Walk In Clinic Visit Medical Records [address] [place] [address] Social History Tobacco Use Types Packs/Day Years [...] on filedocumented in this encounter Care Teams Convenience Store Clerk Relationship Specialty Start Date End Date [place] Colasacco, Susannah, DO PCP - General Internal Medicine 07/01/15 05/05/19 Siddhartha Oakes MD [address] [place] [address] PCP - General Internal Medicine 05/06/19 01/12/20 Martha Grey APRN [address] [place] [address] PCP - General Internal Medicine 01/13/20 01/19/20 Martha Grey APRN [address] [place] [address] PCP - General Internal Medicine 01/20/20 05/16/22 Mike Burns NP [address] [place] [address] PCP - General Family Practice 05/17/22 11/20/22 Martha Grey APRN [address] [place] [address] PCP - General Internal Medicine 11/21/22 documented as of this encounter
--- OUTSIDE RECORDS SUMMARY | 2025-02-16 14:52 | XMS_ITS | Encounter Summary ---
Author Organization [facility] Address [address] [place] [address] Care Team Providers Care Supervisor Maintenance And Custodians Name Role Phone Martha Grey APRN Primary Care Provider Unav ailable Mike Burns NP Primary Care Provider Unavail able Martha Grey APRN Primary Care Provider Unav ailable Encounter Details Date Type Department Care Team Description 05/17/2020 Pt. Non Urgent Medical Question Adult Medicine [address] [address] Ingrid Price APRN [address] [place] [address] Social History Tobacco Use Types Packs/Day Years [...] as of this encounter Progress Notes * Magy Chang M.A. - 05/17/2020 1:43 PM EDTFrom: Deyanira Stewart To: Ingrid Price APRN Sent: 05/17/2020 12:17 PM EDT Subject: Sleep Good Morning Ingrid, I am back to work and i tried the benadryl in combination with the melatonin 10mg and i am still unable to sleep. I am looking to see if there is anything else can try. I tried for 3 nights no tv or screentime 2 hours before bedtime with no results. documented in this encounter Plan of Treatment Not on file documented as of this encounter Visit Diagnoses Not on filedocumented in this encounter Care Teams Supervisor Maintenance And Custodians Relationship Specialty Start Date End Date Martha Grey APRN PCP - General Internal Medicine 01/20/20 05/16/22 Mike Burns NP PCP - General Family Practice 05/17/22 11/20/22 Martha Grey APRN PCP - General Internal Medicine 11/21/22 documented as of this encounter
--- OUTSIDE RECORDS SUMMARY | 2025-02-16 14:52 | XMS_ITS | Encounter Summary ---
Author Organization [facility] Address [address] [place] [address] Care Team Providers Care Neurological Physiotherapist Name Role Phone Martha Grey APRN Primary Care Provider Unav ailable Mike Burns NP Primary Care Provider Unavail able Martha rGey APRN Primary Care Provider Unav ailable Encounter Details Date Type Department Care Team Description 06/15/2020 Refill Rheumatology - [address] [address] Mario Serrano MD Social History Tobacco Use [...] on filedocumented in this encounter Care Teams Neurological Physiotherapist Relationship Specialty Start Date End Date Martha Grey APRN PCP - General Internal Medicine 01/20/20 05/16/22 Mike Burns NP PCP - General Family Practice 05/17/22 11/20/22 Martha Grey APRN PCP - General Internal Medicine 11/21/22 documented as of this encounter
--- OUTSIDE RECORDS SUMMARY | 2025-02-16 14:52 | XMS_ITS | Encounter Summary ---
Author Organization [facility] Address [address] [place] [address] Care Team Providers Care Return To Vendor Name Role Phone Radha Martel PA-C Primary Care Provi mckenna Vinod Robles MD Unavailable [phone] Reason for Visit * Reason Comments Referral Encounter Details Date Type Department Care Team (Late st Contact Info) Description 07/16/2024 Telephone [facility] [address] [place] [address] Radha Martel PA-C [address] [place] [address] Referral Social History Tobacco Use Types Packs/Day [...] 8:00 AM EDT Consult [facility] 31 [facility] 100 [place] [address] Eliseo Molina APRN [address] [facility] [address] [place] [address] 04/01/2025 9:45 AM EDT Office Visit [facility] Department of Cardiology [place] 160 [facility] 100 [place] [address] Antonio Puente MD 160 [facility] 100 [place] [address] 04/13/2025 8:30 AM EDT Office Visit [facility] [address] [place] [address] Theodora Yap APRN [address] [address] 05/20/2025 3:45 PM EDT Office Visit [facility] Medical [facility] 100 [facility] [address] [place] [address] Radha Martel PA-C 100 [place] [address] 05/27/2025 8:00 AM EDT Office Visit [facility] [address] [place] [address] Raphael Mcdaniel MD 31 [place] [address] 07/22/2025 9:20 AM EDT Office Visit [facility]icians Department Of Hematology/Oncology [place] [address] [place] [address] Jhoana Wilkins MD 300 [facility] [address] [place] [address] documented as of this encounter Visit Diagnoses Not on filedocumented in this encounter Care Teams Return To Vendor Relationship Specialty Start Date End Date Radha Martel PA-C [address] [place] [address] PCP - General Internal Medicine 02/24/24 Vinod Robles MD [address] [place] [address] Primary Ld Teacher Cardiovascular Disease 09/02/24 documented as of this encounter
--- OUTSIDE RECORDS SUMMARY | 2025-02-16 14:52 | XMS_ITS | Encounter Summary ---
Author Organization [facility] Address [address] [place] [address] Care Team Providers Care Cylinder Worker Name Role Phone Radha Martel PA-C Primary Care Provi mckenna Vinod Robles MD Unavailable [phone] Encounter Details Date Type Department Care Team (Late st Contact Info) Description 03/06/[address] [facility]icians Department Of Hematology/Oncology [place] [address] [place] [address] Jhoana Wilkins MD 300 [facility] [address] [place] [address] Social History Tobacco Use Types Packs/Day Years [...] 8:00 AM EDT Consult [facility] [place] 31 [facility] [address] [place] [address] Eliseo Molina APRN 499 [facility] [address] [place] [address] 04/01/2025 9:45 AM EDT Office Visit [facility] Department of Cardiology [place] 160 [facility] 100 [place] [address] Antonio Puente MD 160 [facility] 100 [place] [address] 04/13/2025 8:30 AM EDT [facility] [address] [address] Theodora Yap APRN [address] [address] 05/20/2025 3:45 PM EDT Office Visit [facility] 100 [facility] [address] [place] [address] Radha Martel PA-C 100 [place] [address] 05/27/2025 8:00 AM EDT [facility] [address] [address] Raphael Mcdaniel MD 31 [place] [address] 07/22/2025 9:20 AM EDT Office Visit [facility] Department Of Hematology/Oncology [place] [address] [place] [address] Jhoana Wilkins MD 300 [facility] [address] [place], [place] [address] documented as of this encounter Procedures Procedure Name Priority Date/Time Associated Diagnosis Comments LAB RESULT 03/06/2024 7:06 PM EDT documented in this encounter Results * LAB RESULT (03/06/2024 7:06 PM EDT) us Jhoana Wilkins MD HX AMB PROCEDURES Final Result documented in this encounter Visit Diagnoses Not on filedocumented in this encounter Care Teams Cylinder Worker Relationship Specialty Start Date End Date Radha Martel PA-C [address] [place] [address] PCP - General Internal Medicine 02/24/24 Vinod Robles MD [address] [place] [address] Primary Sling Operator Cardiovascular Disease 09/02/24 documented as of this encounter
--- OUTSIDE RECORDS SUMMARY | 2025-02-16 14:52 | XMS_ITS | Encounter Summary ---
Author Organization [facility] Address [address] [place] [address] Care Team Providers Care Commission Agent Livestock Name Role Phone Radha Martel PA-C Primary Care Provi mckenna Vinod Robles MD Unavailable [phone] Encounter Details Date Type Department Care Team (Late st Contact Info) Description 10/29/2024 Scanned Document [facility] [address] [facility] [address] [place] [phone] Provider, Generic Social History Tobacco Use Types [...] 8:00 AM EDT Consult [facility] [address] [facility] [address] [place] [address] Eliseo Molina APRN [address] [facility] [address] [place] [id number] 04/01/2025 9:45 AM EDT Office Visit [facility] Department of Cardiology [place] [address] [facility] [address] [place] [address] Antonio Puente MD 160 [facility] 100 [place] [address] 04/13/2025 8:30 AM EDT [facility] [address] [address] Theodora Yap APRN [address] [address] 05/20/2025 3:45 PM EDT Office Visit [facility] 100 [facility] [address] [place] [address] Radha Martel PA-C 100 [place] [address] 05/27/2025 8:00 AM EDT [facility] [address] [address] Raphael Mcdaniel MD 31 [place] [address] 07/22/2025 9:20 AM EDT Office Visit [facility] Department Of Hematology/Oncology [place] [address] [place] [address] Jhoana Wilkins MD 300 [facility] [address] [place], [place] [address] documented as of this encounter Visit Diagnoses Not on filedocumented in this encounter Care Teams Commission Agent Livestock Relationship Specialty Start Date End Date Radha Martel PA-C [address] [place] [address] PCP - General Internal Medicine 02/24/24 Vinod Robles MD [address] [place] [address] Primary Veterinary Microbiologist Cardiovascular Disease 09/02/24 documented as of this encounter
--- OUTSIDE RECORDS SUMMARY | 2025-02-16 14:52 | XMS_ITS | Clinical Summary ---
Author Organization [facility] Address [address] [place] [address] Care Team Providers Care Staff Respiratory Therapist Name Role Phone Radha Martel Primary Care Provider [phone] Allergies Active Allergy Reactions Criticality Noted Date Comments Adhesive Unknown 01/17/2020 tape Clindamycin Hcl Anaphylaxis High 10/23/2011 Tapentadol Rash High 08/04/2014 Venlafaxine Unknown 06/01/2020 Suicidal ideation Medications valACYclovir (VALTREX) 500 mg tablet Take 1 tablet by mouth daily. 1 Active triamcinolone (NASACORT) 55 mcg nasal inhaler U 2 SPRAYS IEN D 0 Active Mi-Acid Gas Relief,simethic on, 80 mg chewable tablet MUSEUM SECURITY CHIEF ONE T Q 6 H PRN 0 [...] series) 01/10/2067 Insurance HSNO/FREE CARE Care Teams Staff Respiratory Therapist Relationship Specialty Start Date End Date Radha Martel [address] [place] [address] PCP - General Internal Medicine 03/30/24
--- OUTSIDE RECORDS SUMMARY | 2025-02-16 14:52 | XMS_ITS | Encounter Summary ---
Author Organization [facility] Address [address] [place] [address] Care Team Providers Care Plant Utilities Engineer Name Role Phone Radha Martel PA-C Primary Care Provi mckenna Vinod Robles MD Unavailable [phone] Encounter Details Date Type Department Care Team (Late st Contact Info) Description 09/15/2024 Scanned Document [address] [phone] Otolaryngology, Scan Social History Tobacco Use Types [...] 8:00 AM EDT Consult [facility] [address] [place] [address] Eliseo Molina APRN [address] [facility] [address] [place] [address] 04/01/2025 9:45 AM EDT Office Visit [facility] Department of Cardiology [place] [address] [facility] [address] [place] [address] Antonio Puente MD 160 [facility] 100 [place] [address] 04/13/2025 8:30 AM EDT [facility] [address] [address] Theodora Yap APRN [address] [address] 05/20/2025 3:45 PM EDT Office Visit [facility] 100 [facility] [address] [place] [address] Radha Martel PA-C 100 [place] [address] 05/27/2025 8:00 AM EDT [facility] [address] [address] Raphael Mcdaniel MD 31 [place] [address] 07/22/2025 9:20 AM EDT Office Visit [facility] Department Of Hematology/Oncology [place] [address] [place] [address] Jhoana Wilkins MD 300 [facility] [address] [place], [place] [address] documented as of this encounter Visit Diagnoses Not on filedocumented in this encounter Care Teams Plant Utilities Engineer Relationship Specialty Start Date End Date Radha Martel PA-C [address] [place] [address] PCP - General Internal Medicine 02/24/24 Vinod Robles MD [address] [place] [address] Primary Cement Production Plant Operator Cardiovascular Disease 09/02/24 documented as of this encounter
--- OUTSIDE RECORDS SUMMARY | 2025-02-16 14:52 | XMS_ITS | Encounter Summary ---
Author Organization [facility] Address [address] [place] [address] Care Team Providers Care Peoplesoft Hr Developer Name Role Phone Radha Martel Primary Care Provider [phone] Encounter Details Date Type Department Care Team (Late st Contact Info) Description 12/02/2020 Orders Only [facility] [address] [place] [id number] Kalie Clark MD [address] [place] [id number] Social History Tobacco Use Types Packs/Day Years [...] of this encounter Procedures * Due to [place] CANDDi law, this organization might not be sharing negative HIV tests. Procedure Name Priority Date/Time Associated Diagnosis Comments NEURODIAGNOSTIC - SCANNED Routine 04/06/2020 documented in this encounter Results * Due to [place] CANDDi law, this organization might not be sharing negative HIV tests. * NEURODIAGNOSTIC - SCANNED (04/06/2020) Kalie Clark MD SCANNED PROCEDURES Final Res ult documented in this encounter Visit Diagnoses Not on filedocumented in this encounter Care Teams Peoplesoft Hr Developer Relationship Specialty Start Date End Date Radha Martel [address] [place] [address] PCP - General Internal Medicine 03/30/24 documented as of this encounter
--- OUTSIDE RECORDS SUMMARY | 2025-02-16 14:52 | XMS_ITS | Encounter Summary ---
Author Organization [facility] Address [address] [place] [address] Care Team Providers Care Host Coordinator Name Role Phone Radha Martel PA-C Primary Care Provi mckenna Vinod Robles MD Unavailable [phone] Encounter Details Date Type Department Care Team (Late st Contact Info) Description 08/19/2024 Scanned Document [address] [phone] Radha Martel PA-C [address] [place] [address] Social History Tobacco Use Types Packs/Day Years [...] 8:00 AM EDT Consult [facility] 31 [facility] 100 [place] [address] Eliseo Molina APRN 499 [facility] [address] [place] [address] 04/01/2025 9:45 AM EDT Office Visit [facility] Department of Cardiology [place] 160 [facility] 100 [place] [address] Antonio Puente MD 160 [facility] 100 [place] [address] 04/13/2025 8:30 AM EDT [facility] [address] [address] Theodora Yap APRN [address] [address] 05/20/2025 3:45 PM EDT Office Visit [facility] 100 [facility] [address] [place] [address] Radha Martel PA-C 100 [place] [address] 05/27/2025 8:00 AM EDT Office Visit [facility] [address] [address] Raphael Mcdaniel MD 31 [place] [address] 07/22/2025 9:20 AM EDT Office Visit [facility] Department Of Hematology/Oncology [place] [address] [place] [address] Jhoana Wilkins MD 300 [facility] [address] [place], [place] [address] documented as of this encounter Visit Diagnoses Not on filedocumented in this encounter Care Teams Host Coordinator Relationship Specialty Start Date End Date Radha Martel PA-C [address] [place] [address] PCP - General Internal Medicine 02/24/24 Vinod Robles MD [address] [place] [address] Primary Varnisher Plasticoater Cardiovascular Disease 09/02/24 documented as of this encounter
--- OUTSIDE RECORDS SUMMARY | 2025-02-16 14:52 | XMS_ITS | Encounter Summary ---
Author Organization [facility] Address [address] [place] [address] Care Team Providers Care Occupational Therapist'S Assistant Name Role Phone Radha Martel Primary Care Provider [phone] Encounter Details Date Type Department Care Team (Late st Contact Info) Description 11/03/2020 myChart Message [facility] Clinic 55 [place], [place] [phone] aKlie Clark MD [address] [place], [place] [phone] Non-Urgent Medical Question Social History Tobacco Use [...] on filedocumented in this encounter Care Teams Occupational Therapist'S Assistant Relationship Specialty Start Date End Date Radha Martel [address] [place] [address] PCP - General Internal Medicine 03/30/24 documented as of this encounter
--- OUTSIDE RECORDS SUMMARY | 2025-02-16 14:52 | XMS_ITS | Encounter Summary ---
Author Organization [facility] Address [address] [place] [address] Care Team Providers Care Retinal Angiographer Name Role Phone Emerald Yu MD Primary Care Provider Unavailable Oj Boyceo, Sus[place] DO Primary Care Pro vider Unavailable Emerald Yu MD Primary Care Provider Unavailable Krakoopal Boyceo, Susannah DO Primary Care Pro vider Unavailable Siddhartha Oakes MD Primary Care Provider [phone] Martha Grey APRN Primary Care Provider Unav ailable Martha Grey APRN Primary Care Provider Unav ailable Mike Burns NP Primary Care Provider Unavail able Martha Grey APRN Primary Care Provider Unav ailable Encounter Details Date Type Department Care Team Description 06/09/2014 Supervisor Ticket Sales Report Medical Records [address] [place] [address] Keysha Martinez MD Social History Tobacco Use [...] on filedocumented in this encounter Care Teams Retinal Angiographer Relationship Specialty Start Date End Date Emerald Yu MD PCP - General Internal Medicine 12/18/1302/04 [place] Rendon DO PCP - General Internal Medicine 02/14/15 05/09/15 Emerald Yu MD PCP - General Internal Medicine 05/10/1506/08 [place] Rendon DO PCP - General Internal Medicine 07/01/15 05/05/19 Siddhartha Oakes MD [address] [place] [address] PCP - General Internal Medicine 05/06/19 01/12/20 Martha Grey APRN [address] [place] [address] PCP - General Internal Medicine 01/13/20 01/19/20 Martha Grey APRN [address] [place] [address] PCP - General Internal Medicine 01/20/20 05/16/22 Mike Burns NP [address] [place] [address] PCP - General Family Practice 05/17/22 11/20/22 Martha Grey APRN [address] [place] [address] PCP - General Internal Medicine 11/21/22 documented as of this encounter
--- OUTSIDE RECORDS SUMMARY | 2025-02-16 14:52 | XMS_ITS | Encounter Summary ---
Author Organization [facility] Address [address] [place] [address] Care Team Providers Care Magazine Filler Name Role Phone Emerald Yu MD Primary Care Provider Unavailable Oj Boyceo, Susannah DO Primary Care Pro vider Unavailable Emerald Yu MD Primary Care Provider Unavailable Krakoopal Colbarringtono, Susannah DO Primary Care Pro vider Unavailable Siddhartha Oakes MD Primary Care Provider [phone] Martha Grey APRN Primary Care Provider Unav ailable Martha Grey APRN Primary Care Provider Unav ailable Mike Burns NP Primary Care Provider Unavail able Martha Grey APRN Primary Care Provider Unav ailable Reason for Visit * Reason Onset Date Comments Error 2014 Encounter Details Date Type Department Care Team Description 2014 Telephone [facility] [address] [address] Eliseo Rodríguez MD Error Social History Tobacco [...] performed: 01/08 [facility] Who ordered this test?: DR RODRÍGUEZ Is [...] on filedocumented in this encounter Care Teams Magazine Filler Relationship Specialty Start Date End Date Emerald Yu MD PCP - General Internal Medicine 12/18/1302/04 [place] Rendon DO PCP - General Internal Medicine 02/14/15 05/09/15 Emerald Yu MD PCP - General Internal Medicine 05/10/1506/08 [place] Rendon DO PCP - General Internal Medicine 07/01/15 05/05/19 Siddhartha Oakes MD [address] [place] [address] PCP - General Internal Medicine 05/06/19 01/12/20 Martha Grey APRN [address] [place] [address] PCP - General Internal Medicine 01/13/20 01/19/20 Martha Grey APRN [address] [place] [address] PCP - General Internal Medicine 01/20/20 05/16/22 Mike Burns NP [address] [place] [address] PCP - General Family Practice 05/17/22 11/20/22 Martha Grey APRN [address] [place] [address] PCP - General Internal Medicine 11/21/22 documented as of this encounter
--- OUTSIDE RECORDS SUMMARY | 2025-02-16 14:52 | XMS_ITS | Encounter Summary ---
Author Organization [facility] Address [address] [place] [address] Care Team Providers Care Wool Dyer Name Role Phone Radha Martel PA-C Primary Care Provi mckenna Vinod Robles MD Unavailable [phone] Encounter Details Date Type Department Care Team (Late st Contact Info) Description 10/29/2024 Scanned Document [facility] 80 [facility] [address] [place] [phone] Provider, Generic Social History Tobacco Use Types [...] 8:00 AM EDT Consult [facility] 31 [facility] [address] [place] [address] Eliseo Molina APRN 499 [facility] [address] [place] [phone] 04/01/2025 9:45 AM EDT Office Visit [facility] Department of Cardiology [place] 160 [facility] [address] [place] [address] Antonio Puente MD 160 [facility] 100 [place] [address] 04/13/2025 8:30 AM EDT [facility] [address] [address] Theodora Yap APRN [address] [address] 05/20/2025 3:45 PM EDT Office Visit [facility] 100 [facility] [address] [place] [address] Radha Martel PA-C 100 [place] [address] 05/27/2025 8:00 AM EDT [facility] [address] [address] Raphael Mcdaniel MD 31 [place] [address] 07/22/2025 9:20 AM EDT Office Visit [facility] Department Of Hematology/Oncology [place] [address] [place] [address] Jhoana Wilkins MD 300 [facility] [address] [place], [place] [address] documented as of this encounter Visit Diagnoses Not on filedocumented in this encounter Care Teams Wool Dyer Relationship Specialty Start Date End Date Radha Martel PA-C [address] [place] [address] PCP - General Internal Medicine 02/24/24 Vinod Robles MD [address] [place] [address] Primary Sausage Grinder Cardiovascular Disease 09/02/24 documented as of this encounter
--- OUTSIDE RECORDS SUMMARY | 2025-02-16 14:52 | XMS_ITS | Encounter Summary ---
Author Organization [facility] Address [address] [place] [address] Care Team Providers Care Leaf Coverer Name Role Phone Martha Grey APRN Primary Care Provider Unav ailable Mike Burns NP Primary Care Provider Unavail able Martha Grey APRN Primary Care Provider Unav ailable Encounter Details Date Type Department Care Team Description 05/06/2020 [facility] Medical Records [address] [place] [address] Jasmine Smith MD [address] [place] [address] [place] [address] Social History Tobacco Use Types Packs/Day Years [...] on filedocumented in this encounter Care Teams Leaf Coverer Relationship Specialty Start Date End Date Martha Grey APRN PCP - General Internal Medicine 01/20/20 05/16/22 Glogowski, Mike, WOOL HAT SANDING MACHINE OPERATOR PCP - General Family Practice 05/17/22 11/20/22 Martha Grey APRN PCP - General Internal Medicine 11/21/22 documented as of this encounter
--- OUTSIDE RECORDS SUMMARY | 2025-02-16 14:52 | XMS_ITS | Clinical Summary ---
Author Organization [facility] Address [address] [place] [address] Care Team Providers Care Teamcenter Solution Architect Name Role Phone Radha Martel PA-C Primary Care Provi mckenna Vinod Robles MD Unavailable [phone] Allergies Active Allergy Reactions Criticality Noted [...] 02/16/2025 8:15 AM EDT Office Visit [facility] [address] [address] Raphael Mcdaniel MD Low back pain, unspecified back pain laterality, unspecified chronicity, unspecified whether sciatica present (Primary Dx); Cervicalgia 02/10/2025 Scanned Document [facility] [address] [place] [address] Neurology, Scan 02/08/2025 Scanned Document [facility] [address] [phone] Raphael Mcdaniel MD 02/08/2025 Orders Only [facility] [address] [phone] Raphael Mcdaniel MD Low back pain, unspecified back pain laterality, unspecified chronicity, unspecified whether sciatica present (Primary Dx) 01/27/2025 Scanned Document [facility] [address] [address] Raphael Mcdaniel MD 01/26/2025 9:00 AM EDT [facility] [address] [address] Rodo Richards MD Pain in right ankle and joints of right foot (Primary Dx) 01/25/2025 9:00 AM EDT Ancillary Procedure [facility] [address] [phone] Raphael Mcdaniel MD 01/25/2025 8:30 AM EDT Consult [facility] [address] [phone] Raphael Mcdaniel MD Cervicalgia (Primary Dx); Low back pain, unspecified back pain laterality, unspecified chronicity, unspecified whether sciatica present 01/25/2025 8:25 AM EDT Anc[facility] [address] [phone] Raphael Mcdaniel MD 01/25/2025 Orders Only [facility] [address] [address] Yessica Aden MD 01/20/2025 11:40 AM EDT Telemedicine [facility] Department Of Hematology/Oncology [place] [address] [place] Conner Gomez [address] [place] [address] Jhoana Wilkins MD Bleeding diathesis (Primary Dx); Bipolar 2 disorder, major depressive episode (HCC); Attention deficit disorder; Anemia; S/P gastric sleeve procedure; Morbid obesity (HCC); History of tobacco use; Fibromyalgia; Fatty liver disease, nonalcoholic; Focal nodular hyperplasia of liver 01/19/2025 1:30 PM EDT [facility] [address] [place] [address] Theodora Yap APRN Pain in right ankle and joints of right foot (Primary Dx) 01/19/2025 1:25 PM EDT Ancillary Procedure [facility] [address] [place] [address] 01/15/2025 Orders Only [address] [place] [address] Radha Martel PA-C Chronic bilateral low back pain, unspecified whether sciatica present (Primary Dx) 2025 Telephone [facility] 100 [facility] 101 [place] [address] Radha Martel PA-C 01/06/2025 11:30 AM EDT Office Visit [facility] 100 [facility] [address] [place] [address] Radha Martel PA-C Chronic bilateral low back pain, unspecified whether sciatica present (Primary Dx); Muscle spasm; Fibromyalgia; Acute right ankle pain; Gastroesophageal reflux disease, unspecified whether esophagitis present; Palpitations; Memory change 01/06/2025 Travel 12/29/2024 8:00 AM EDT Consult [facility] Department of Physiatry [place] [address] [facility] [address] [place] [address] Karlene العراقي MD Lumbar facet joint pain (Primary Dx); Myalgia; Spasm of both trapezius muscles; Lumbar paraspinal muscle spasm 12/29/2024 Travel 12/24/2024 10:40 AM EDT Office Visit [facility] Department Of Hematology/Oncology [place] [address] [address] [place] [phone] Jhoana Wilkins MD Bleeding diathesis (Primary Dx); Anemia; B12 deficiency; Bipolar 2 disorder, major depressive episode (HCC); Fe deficiency anemia; Morbid obesity ([facility]); S/P gastric sleeve procedure 12/16/2024 Orders Only [facility] 100 [facility] [address] [place] [address] Radha Martel PA-C Fibromyalgia (Primary Dx); Trigger finger, unspecified finger, unspecified laterality 12/14/2024 8:30 AM EDT Office Visit [facility] Department of Cardiology [place] [address] [facility] 100 [place] [address] Antonio Puente MD Heart palpitations (Primary Dx); Syncope and collapse; Morbid obesity ([facility]); S/P repair of PDA 12/09/2024 Orders Only [facility] [address] [phone] Radha Martel PA-C Fibromyalgia (Primary Dx) 12/08/2024 Orders Only [facility] [address] [phone] Radha Martel PA-C Fibromyalgia (Primary Dx) 11/25/2024 8:00 AM EST Office Visit [facility] Dermatology [address] [address] Radha Martel PA-C Naka, Fludiona, MD Cutaneous skin tags (Primary Dx); Lentigines; Xerosis cutis; Abreu angioma; Multiple pigmented nevi; Screening for skin cancer; Sun-damaged skin; Pruritus; Other specified counseling; Disturbance of skin sensation; Seborrheic keratoses 11/25/2024 Travel 11/24/2024 11:00 AM EST Office Visit [address] [phone] Radha Martel PA-C Fibromyalgia (Primary Dx); B12 deficiency; Iron deficiency anemia, unspecified iron deficiency anemia type; Recurrent sinus infections; Incontinence of feces, unspecified fecal incontinence type; Syncope and collapse; Frequent infections 11/24/2024 Travel 11/21/2024 2:00 PM EST Telemedicine [facility] [address] [address] Jon Pleitez MD Patel, Arti [...] 02/19/2025 8:00 AM EDT [facility] 31 [facility] 100 [place] [address] Eliseo Molina APRN [address] [facility] [address] [place] [address] 04/01/2025 9:45 AM EDT Office Visit [facility] Department of Cardiology [place] 160 [facility] 100 [place] [address] Antonio Puente MD [address] [address] 04/13/2025 8:30 AM EDT [facility] [address] [address] Theodora Yap APRN [address] [address] 05/20/2025 3:45 PM EDT Office Visit [facility] 100 [facility] [address] [place] [address] Radha Martel PA-C 100 [place] [address] 05/27/2025 8:00 AM EDT [facility] [address] [place] [address] Raphael Mcdaniel MD 31 [place] [address] 07/22/2025 9:20 AM EDT Office Visit [facility] Department Of Hematology/Oncology [place] [address] [place] [address] Jhoana Wilkins MD [address] [place] [address] Health Maintenance Due Date Last Done Comments Pap Smear (Ages 21-65) 01/10/2013 Pneumococcal Vaccine: Pediatric (0-5 Years) and At-Risk Patients (6 to 49 Years) (2 of 2 - PCV) 06/02/2021 06/02/2020 COVID-19 Vaccine (1 - 2023- season) 2024 Influenza Vaccine 05/07/2025 12/26/2024, , [...] Bleeding diathesis CARDIAC EVENT/LOOP MONITOR RECORD/SCN ANLYSIS/REPORT (25600) Routine 11/30/2024 9:51 AM EST Heart palpitations [...] Margarito Sommer MD 02/14/2025 12:28 AM EDT Workstation:[email or web address] Thank you for referring your patient to us, Margarito Sommer MD [phone] (Electronically Signed - 02/14/2025 00:28) Narrative 02/14/2025 [...] by: Margarito Sommer MD 02/14/2025 12:28 AM EDTWorkstation:[id number] Thank you for referring your patient to us, Margarito Somemr MD [phone] (Electronically Signed - 02/14/2025 00:28) us Raphael Mcdaniel MD [facility] MRI ORDERABLES Final Result * MRI Cervical spine w/o contrast (02/05/2025 7:35 AM EDT) Anatomical Region Laterality Modality C-spine Magnetic Resonan ce 02/05/2025 7:00 AM EDT 02/05/2025 7:00 AM EDT Impressions 02/05/2025 8:51 AM EDT Small multilevel disc protrusions. Electronically signed by: ??Ada Packer MD ??02/05/2025 08:51 AM EDT RP Thank you for referring your patient to us, Ada Packer MD [id number] (Electronically Signed - 02/05/2025 08:51) Narrative 02/05/2025 [...] Packer MD 02/05/2025 08:51 AM EDT RPWorkstation: [id number] Thank you for referring your patient to us, Aad Packer MD [id number] (Electronically Signed - 02/05/2025 08:51) Raphael PENA MRI ORDERABLES Final Result * MRI External Result (01/25/2025 9:03 AM EDT) Anatomical Region Laterality Modality Magnetic Resonan ce External Provider MD PENA MRI ORDERABLES Final Re sult * XR Cervical spine w/ flex+ext 4 views (01/25/2025 9:02 AM EDT) Narrative [facility] - 01/25/2025 9:02 AM EDT This exam [facility] performed [facility] and images reviewed by orthopedic provider. ??Any findings are documented within ambulatory encounter note on date of service. Raphael PENA DIAGNOSTIC IMAGING ORDERABLE S Final Result Performing Organization Address [facility] de Phone Number OAH * XR Lumbar spine complete 4+ views (01/25/2025 8:31 AM EDT) Narrative [facility] - 01/25/2025 8:31 AM EDT This exam was performed in office at [facility] and images reviewed by orthopedic provider. ??Any findings are documented within ambulatory encounter note on date of service. Result [facility] Raphael PENA DIAGNOSTIC IMAGING ORDERABLE S Final Result Performing Organization Address [facility] de Phone Number OAH * XR Foot 3+ views-Right (01/19/2025 1:32 PM EDT) Narrative [facility] - 01/19/2025 1:32 PM EDT This exam was performed in [facility] and images reviewed by orthopedic provider. ??Any findings are documented within ambulatory encounter note on date of service. Theodora Yap APRN IMG DIAGNOSTIC IMAGING OR DERABLES Final Result Performing Organization Address [facility] Co de Phone Number OAH * XR Ankle 3+ views-Right (01/19/2025 1:32 PM EDT) Narrative [facility] - 01/19/2025 1:32 PM EDT This exam was performed in office at [facility] and images reviewed by orthopedic provider. ??Any findings are documented within ambulatory encounter note on date of service. Theodora Yap APRN IMG DIAGNOSTIC IMAGING OR DERABLES Final Result Performing Organization Address City/[facility]/ZIP Co de Phone Number OAH * VITAMIN B12 AND FOLATE (12/24/2024 11:25 AM EDT) Vitamin B12 390 211 - 946 pg/mL [facility] Folate, Serum 5.5 3.1 - 17.5 ng/mL [facility] Blood Blood specimen / Unknown 12/24/2024 11:25 AM EDT 12/24/2024 4:06 PM EDT Jhoana Wilkins MD LAB BLOOD ORDERABLES Final Resul t Performing Organization Address [facility] [place] [address], * Von Willebrand Factor Multi. (12/24/2024 11:20 [...] ORDERABLES Final Resul t Performing Organization Address City/[facility] Co de Phone Number UY * FACTOR VIII ACTIVITY, CHROMOGENIC (12/24/2024 11:20 AM EDT) Factor Viii Activity 92 56 - 140 % [facility] 12/24/2024 11:2 0 AM EDT 12/24/2024 3:50 PM EDT Jhoana Wilkins MD GENETIC TESTING Final Result Performing Organization Address [facility] Co de Phone Number [facility] [address] * Iron and Total Iron Binding Capacity (12/24/2024 11:20 AM EDT) [facility] Iron 75 45 - 160 ug/dL [facility] UIBC 235 110 - 370 ug/dL [facility] Total Iron Binding Capacity 310 228 - 428 ug/dL [facility] Iron Sat 24 11 - 50 % [facility] Blood Blood specimen / Unknown 12/24/2024 11:20 AM EDT 12/24/2024 3:50 PM EDT Jhoana Wilkins MD LAB BLOOD ORDERABLES Final Resul t Performing Organization Address [facility] de Phone Number [address] * VON WILLEBRAND FACTOR ACTIVITY (12/24/2024 11:20 AM EDT) [facility] Von Willebrand Factor Activity 64 50 - 200 % [facility] 12/24/2024 11:2 0 AM EDT 12/24/2024 3:50 PM EDT Jhoana Wilkins MD LAB BLOOD ORDERABLES Final Resul t Performing Organization Address [facility] de Phone Number [facility] [address] * (ABNORMAL) Complete Blood Count, with Differential (12/24/2024 11:20 AM EDT) [facility] WBC 9.97 4.00 - 11.00 Thousand/ uL [facility] RBC 4.14 4.04 - 5.48 Million/u L [facility] Hemoglobin 12.9 12.0 - 14.1 g/dL [facility] Hematocrit 40.0 33.5 - 43.3 % [facility] MCV 96.6 80.0 - 97.0 fL [facility] MCH 31.2 27.0 - 31.2 pg [facility] MCHC 32.3 31.8 - 35.4 g/dL [facility] RDW-CV 13.5 11.6 - 14.8 % [facility] Platelet Count 245.0 142.0 - 424.0 Thousand/ uL [facility] MPV 11.2 8.0 - 13.0 fL [facility] Neutrophil % 53.7 37.0 - 80.0 [...] Granulocytes 0.1100(H) 0.0000 - 0.0700 Thousand/ uL [facility] Nucleated RBCS (%) 0.0 0.0 - 0.2 % [facility] NRBC, Absolute 0.000 0.000 - 0.012 Thousand/ uL [facility] Blood Blood specimen / Unknown 12/24/2024 11:20 AM EDT 12/24/2024 3:50 PM EDT us Jhoana Wilkins MD LAB BLOOD ORDERABLES Final [place] [address], * Partial Thromboplastin Time (PTT) (12/24/2024 11:20 AM EDT) PTT 27.9 24.0 - 33.0 SECONDS [facility] Blood Blood specimen / Unknown 12/24/2024 11:20 AM EDT 12/24/2024 3:50 PM EDT Jhoana Wilkins MD LAB BLOOD ORDERABLES Final Resul t Performing Organization Address [facility] Phone Number [address] * PROTIME-INR (12/24/2024 11:20 AM EDT) Prothrombin Time 10.9 9.3 - 11.4 SECONDS [facility] INR 1.04 0.96 - 1.18 [facility] Comment: NO ANTICOAG ??0.96-1.18 STD DOSE ? 2.00-3.00 HIGH DOSE ? 2.50-3.50 Blood Blood specimen / Unknown 12/24/2024 11:20 AM EDT 12/24/2024 3:50 PM EDT Jhoana Wilkins MD LAB BLOOD ORDERABLES Final Resul t Performing Organization Address [facility] Phone Number [address] * (ABNORMAL) FERRITIN (12/24/2024 11:20 AM EDT) Ferritin 164(H) 15 - 150 ng/mL [facility] Blood Blood specimen / Unknown 12/24/2024 11:20 AM EDT 12/24/2024 3:50 PM EDT Jhoana Wilkins MD LAB BLOOD ORDERABLES Final Resul t Performing Organization Address [facility] de Phone Number [address] * Comprehensive Metabolic Panel (12/24/2024 11:20 AM EDT) Glucose 82 70 - 99 mg/dL [facility] Blood Urea Nitrogen 8 7 - 22 mg/dL [facility] Creatinine, Ser 0.5 0.5 - 1.2 mg/dL [facility] Bun / Creat Ratio 16 11 - 30 [facility] Sodium 140 133 - 145 mmol/L [facility] Potassium 3.7 3.3 - 5.1 mmol/L [facility] Chloride 102 96 - 108 mmol/L [facility] CO2 25 22 - 31 mmol/L [facility] Anion Gap 13 3 - 19 mmol/L [facility] Calcium 9.2 8.8 - 10.6 mg/dL [facility] Total Protein 6.9 6.0 - 8.3 g/dL [facility] Albumin 4.3 3.2 - 4.8 g/dL [facility] Globulin 2.6 2.0 - 3.5 g/dL [facility] Albumin/Globulin Ratio 1.7 1.0 - 5.0 [facility] Aspartate Aminotrans (AST) 21 8 - 37 IU/L [facility] Alanine Aminotrans (ALT) 20 5 - 40 IU/L [facility] Alkaline Phosphatase 88 37 - 145 IU/L [facility] Bilirubin, Total 0.2 0.0 - 1.0 mg/dL [facility] GFR Estimated (calculated) >60 >60 [facility] Comment: As of 2021, the [facility] has updated the creatinine- based estimated glomerular filtration rate (eGFRcr) to the updated CKD-EPI 2020 equation. ??This change removes the race coefficient of the older calculation, and was made based on recommendations from the National Kidney Foundation and the [place] [employer]ph[employer]'s Task Force. ??The new [...] MD LAB BLOOD ORDERABLES Final Resul t [address] [place] [address], [place] * von Willebrand Factor Antigen (12/24/2024 12:00 AM EDT) Von Willebrand Factor Antigen 128 50 - 200 % [facility] 1 Blood Blood specimen / Unknown 12/24/2024 12/25/2024 Comment:Blood Narrative [facility] ([facility]) - 12/26/2024 1:05 PM EDT Test(s) 053306-wka Willebrand Factor (vWF) Ag was developed and its performance characteristics determined by [facility]. It has not been cleared or approved by the Food and Drug Administration. Performed at: ??01 - [facility] ??[id number] Gas Adjuster: Avelino Escobar MD, Phone: ??[phone] Jhoana Wilkins MD LAB BLOOD ORDERABLES Final Resul t [facility]) [facility] * CARDIAC EVENT/LOOP MONITOR RECORD/SCN ANLYSIS/REPORT ([id number]) (11/30/2024 9:51 AM EST) Anatomical Region Laterality [...] Re sult from Last 3 Months Insurance BLUE FELT OUT OF [facility] BLUE FELT OUT OF [facility] BLUE CROSS OUT OF [facility] BLUE CROSS OUT OF STATE - PPO Care Teams Teamcenter Solution Architect Relationship Specialty Start Date End Date Radha Martel PA-C [address] [place] [address] PCP - General Internal Medicine 02/24/24 Vinod Robles MD [address] [place] [address] Primary Plumbing Drafter Cardiovascular Disease 09/02/24
--- OUTSIDE RECORDS SUMMARY | 2025-02-16 14:52 | XMS_ITS | Encounter Summary ---
Author Organization [facility] Address [address] [place] [address] Care Team Providers Care Hand Chain Maker Name Role Phone Martha Grey APRN Primary Care Provider Unav ailable Mike Burns NP Primary Care Provider Unavail able Martha Grey APRN Primary Care Provider Unav ailable Encounter Details Date Type Department Care Team Description 05/12/2020 Pt. Non Urgent Medical Question General Surgery - [place] [address] [facility] [address] [place] [address] Jasmine Smith MD [address] [place] [address] [address] [place], [place] [id number] Social History Tobacco Use Types Packs/Day Years [...] filedocumented in this encounter Care Teams Hand Chain Maker Relationship Specialty Start Date End Date Martha Grey APRN PCP - General Internal Medicine 01/20/20 05/16/22 Mike Burns NP PCP - General Family Practice 05/17/22 11/20/22 Martha Grey APRN PCP - General Internal Medicine 11/21/22 documented as of this encounter
--- OUTSIDE RECORDS SUMMARY | 2025-02-16 14:52 | XMS_ITS | Clinical Summary ---
Author Organization [facility] Address [address] [place] [address] Care Team Providers Care Spray Gun Sizer Name Role Phone Radha Martel Primary Care Provider [phone] Allergies Active Allergy Reactions Criticality Noted Date [...] opinion from another surgeon versus referral to [facility] Endometriosis clinic in [place]. She would like referral to the endometriosis [...] Phone Address Type MISCELLANEOUS COMM MISCELLANEOUS INSURANCE [id number] 02/04/2023-Pre sent [address] [place] [address] POS BLUE CROSS BLUE SHIELD [facility] BLUE SHIELD [facility] [id number] 02/04/2023-Pre sent [address] [place] [address] BLUE CROSS BLUE SHIELD [facility] BH BLUE CROSS BLUE [facility] [id number] 02/04/2023-Pre sent [address] [place] [address] BLUE CROSS BLUE SHIELD BLUE CROSS OUT OF [facility] [id number] 12/05/2022-04/11 [phone] [address] [place] [address] PPO BLUE CROSS BLUE SHIELD BLUE CROSS OUT OF STATE [id number] 07/07/2023-Pr esent [phone] [facility] [place] [address] PPO [place]ID [place] [id number] 02/07/2023-Pre sent [address] [place] [address] Medicaid [place] [id number] 02/07/2023-Pre sent [address] [place] [address] Medicaid [place] [id number] 02/09/2025-Pre sent [address] [place] [address] Medicaid [facility] [id number] 04/02/2023-Pr esent [address] [place] [address] Advance Directives For more information, please contact: [phone] Latest Code Status on File Code Status [...] way: discussion with patient . Care Teams Spray Gun Sizer Relationship Specialty Start Date End Date Radha Martel PA [address] [place] [address] PCP - General Physician Motor Equipment Commanding Officer 02/24/24
--- OUTSIDE RECORDS SUMMARY | 2025-02-16 14:52 | XMS_ITS | Encounter Summary ---
Author Organization [facility] Address [address] [id number] Care Team Providers Care Web Pressman Name Role Phone Radha Martel Primary Care Provider [phone] Encounter Details Date Type Department Care Team (Late st Contact Info) Description 12/02/2020 myChart Message [facility] [address] [place] [address] [phone] Kalie Clark MD [address] [place] [address] [phone] RE: Non-Urgent Medical Question Social History Tobacco [...] filedocumented in this encounter Care Teams Web Pressman Relationship Specialty Start Date End Date Radha Martel [address] [place] [id number] PCP - General Internal Medicine 03/30/24 documented as of this encounter
--- OUTSIDE RECORDS SUMMARY | 2025-02-16 14:52 | XMS_ITS | Encounter Summary ---
Author Organization [facility] Address [address] [place] [address] Care Team Providers Care Faculty Administrator Name Role Phone Martha Grey APRN Primary Care Provider Unav ailable Mike Burns NP Primary Care Provider Unavail able Martha Grey APRN Primary Care Provider Unav ailable Encounter Details Date Type Department Care Team Description 04/07/2020 [facility] Medical Records [address] [place] [address] Abstract, Provider Social History Tobacco Use Types [...] on filedocumented in this encounter Care Teams Faculty Administrator Relationship Specialty Start Date End Date Martha Grey APRN PCP - General Internal Medicine 01/20/20 05/16/22 Mike Burns NP PCP - General Family Practice 05/17/22 11/20/22 Martha Grey APRN PCP - General Internal Medicine 11/21/22 documented as of this encounter
--- OUTSIDE RECORDS SUMMARY | 2025-02-16 14:52 | XMS_ITS | Encounter Summary ---
Author Organization [facility] Address [address] [place] [address] Care Team Providers Care Chenille Machine Operator Name Role Phone Martha Grey APRN Primary Care Provider Unav ailable Mike Burns NP Primary Care Provider Unavail able Martha Grey APRN Primary Care Provider Unav ailable Encounter Details Date Type Department Care Team Description 10/31/2020 Foundry Helper Report Medical Records [address] [place] [id number] [place] [address] Social History Tobacco Use Types Packs/Day Years [...] on filedocumented in this encounter Care Teams Chenille Machine Operator Relationship Specialty Start Date End Date Martha Grey APRN PCP - General Internal Medicine 01/20/20 05/16/22 Mike Burns NP PCP - General Family Practice 05/17/22 11/20/22 Martha Grey APRN PCP - General Internal Medicine 11/21/22 documented as of this encounter
--- OUTSIDE RECORDS SUMMARY | 2025-02-16 14:52 | XMS_ITS | Encounter Summary ---
Author Organization [facility] Address [address] [place] [address] Care Team Providers Care Pharmaceutical Scientist Name Role Phone Radha Martel PA-C Primary Care Provi mckenna Vinod Robles MD Unavailable [phone] Encounter Details Date Type Department Care Team (Late st Contact Info) Description 10/29/2024 11:45 AM EST Hospital Encounter [facility] [address] [place] [phone] Social History Tobacco Use Types Packs/Day Years [...] 8:00 AM EDT Consult [facility] [address] [place] [phone] Eliseo Molina APRN [address] [facility] [address] [place] [address] 04/01/2025 9:45 AM EDT Office Visit [facility] Department of Cardiology [place] [address] [facility] [address] [place] [address] Antonio Puente MD [address] [facility] [address] [place] [address] 04/13/2025 8:30 AM EDT [facility] [address] [place] [address] Theodora Yap APRN [address] [address] 05/20/2025 3:45 PM EDT Office Visit [facility] [address] [facility] [address] [place] [address] Radha Martel PA-C [address] [place] [address] 05/27/2025 8:00 AM EDT [facility] [address] [address] Raphael Mcdaniel MD [address] [place] [address] 07/22/2025 9:20 AM EDT Office Visit [facility] Department Of Hematology/Oncology [place] [address] [place] [phone] Jhoana Wilkins MD [address] [facility] [address] [place], [place] [address] documented as of this encounter Procedures Procedure [...] your patient to us, Jassi Boone MD [id number] (Electronically Signed - 10/29/2024 12:28) Copy: PATIENT [...] Boone MD 10/29/2024 12:28 PM EST RPWorkstation: [id number] Thank you for referring your patient to us, Jassi Boone MD [phone] (Electronically Signed - 10/29/2024 12:28) Copy: PATIENT , JANAK Longoria IMG DIAGNOSTIC IMAGING ORDERABL ES Final Result documented in this encounter Visit Diagnoses Not on filedocumented in this encounter Care Teams Pharmaceutical Scientist Relationship Specialty Start Date End Date Radha Martel PA-C [address] [place] [address] PCP - General Internal Medicine 02/24/24 Vinod Robles MD [address] [place] [address] Primary Final Block Press Operator Cardiovascular Disease 09/02/24 documented as of this encounter
--- OUTSIDE RECORDS SUMMARY | 2025-02-16 14:52 | XMS_ITS | Encounter Summary ---
Author Organization [facility] Address [address] [place] [address] Care Team Providers Care Imagery Analyst Name Role Phone Martha Grey APRN Primary Care Provider Unav ailable Mike Burns NP Primary Care Provider Unavail able Martha Grey APRN Primary Care Provider Unav ailable Encounter Details Date Type Department Care Team Description 05/09/2020 Hospital Medical Records [address] [place] [id number] [place], [place] [address] Social History Tobacco Use Types Packs/Day Years [...] on filedocumented in this encounter Care Teams Imagery Analyst Relationship Specialty Start Date End Date Martha Grey APRN PCP - General Internal Medicine 01/20/20 05/16/22 Mike Burns NP PCP - General Family Practice 05/17/22 11/20/22 Martha Grey APRN PCP - General Internal Medicine 11/21/22 documented as of this encounter
--- OUTSIDE RECORDS SUMMARY | 2025-02-16 14:52 | XMS_ITS | Encounter Summary ---
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
--- OUTSIDE RECORDS SUMMARY | 2025-02-16 14:52 | XMS_ITS | Encounter Summary ---
Author Organization [facility] Address [address] [place] [address] Care Team Providers Care Nitriles Lab Technician Name Role Phone Martha Grey APRN Primary Care Provider Unav ailable Mike Burns NP Primary Care Provider Unavail able Martha Grey APRN Primary Care Provider Unav ailable Encounter Details Date Type Department Care Team Description 04/19/2020 Telephone Allergy [place] [address] [place] [address] Marilee Olivas MD Social History [...] on filedocumented in this encounter Care Teams Nitriles Lab Technician Relationship Specialty Start Date End Date Martha Grey APRN PCP - General Internal Medicine 01/20/20 05/16/22 Mike Burns NP PCP - General Family Practice 05/17/22 11/20/22 Martha Grey APRN PCP - General Internal Medicine 11/21/22 documented as of this encounter
--- OUTSIDE RECORDS SUMMARY | 2025-02-16 14:52 | XMS_ITS | Clinical Summary ---
Author Organization [facility] Address [address] [place] [address] Phone Care Team Providers Care Neuropsychologist Name Role Phone Radha Martel Primary Care Provider [phone] Allergies Active Allergy Reactions Criticality Noted Date [...] (BMI) of 37.0 to 37.9 in adult ([facility] V24, [facility] V28) 11/28/2023 Attention deficit disorder 04/15/2023 Bipolar 2 disorder, major de pressive episode ([facility] V24, [facility] V28) 04/15/2023 Cholecystitis 04/02/2023 Chronic pelvic pain in female 03/08/2023 Nondependent opioid abuse in remission ([facility] V24, [facility] V28) 03/08/2023 Overview (11/28/2023): sober x 7 [...] opinion from another surgeon versus referral to [facility] Endometriosis clinic in [place]. She would like referral to the endometriosis [...] EDT - 02/02/2025 2:49 PM EDT Emergency [facility] Emergency [address] [place] [phone] Contusion of right knee, initial encounter (Primary [...] LAPAROSCOPY CHOLECYSTECTOMY; Surgeon: Jhonny Canada MD; Location: [facility] MAIN OPERATING ROOM; Service: General; Laterality: [...] Signed Date: 02/02/2025 12:23 ET Workstation ID: [id number] Transcribed By: Self Edit Transcribed Date: 02/02/2025 [...] Signed Date: 02/02/2025 12:23 ET Workstation ID: [id number] Transcribed By: Self Edit Transcribed Date: 02/02/2025 [...] RESULTING AGENCY - 2021 11:45 AM EDT [id number] THINPREP PAP, IMAGED: NEGATIVE FOR SQUAMOUS INTRAEPITHELIAL LESION AND MALIGNANCY . BRONWYN LAN , JERICA(ASCP) (CASE ELECTRONICALLY SIGNED 01 11 2021) ADEQUACY: SATISFACTORY ENDOCERVICAL/TRANSFORMATION ZONE COMPONENT PRESENT. SOURCE: THINPREP PAP HPV IF ASCUS, CERVICAL, IMAGED CLINICAL INFORMATION: HPV IF DIAGNOSIS OF ASCUS. PAP HX NEG, Z12.4 Luz Maria Borja [facility] LAB CYTOLOGY ORDERABLES Fin al Result HISTORICAL TESTING LAB RESULTING AGENCY from Last 3 Months or Most Recently Relevant to Health Maintenance Insurance [facility] Care Teams Neuropsychologist Relationship Specialty Start Date End Date Radha Martel PA [address] [facility] [facility] [address] [employer] [address] PCP - General 02/24/24
[2025-02-16 18:06] LABS: MANUAL DIFF FLAG NO
[2025-02-16 18:09] LABS: White Blood Count 12.2 X10*3/uL (4.8-10.8)
[2025-02-16 18:10] LABS: Basophils Absolute Auto 0.1 X10*3/uL (0.0-0.2); Basophils Percent Auto 0.4 % (0-2); Eosinophils Absolute Auto 0.1 X10*3/uL (0.0-0.4); Hematocrit 40.2 % (37.0-47.0); Hemoglobin 13.6 g/dl (12.0-16.0); Imm Gran Abs Auto 0.07 X10*3/uL (0.00-0.03); Imm Gran Pct Auto 0.6 % (0.0-0.4); Lymphocytes Absolute Auto 3.3 X10*3/uL (1.2-4.9); Lymphocytes Percent Auto 26.7 % (20-40); Mean Corpuscular HGB Conc 33.8 g/dl (31.0-35.0); Mean Corpuscular Hemoglobin 31.1 pg (27.0-33.0); Mean Corpuscular Volume 91.8 fL (80.0-98.0); Mean Platelet Volume 11.4 fL (9.4-12.3); Monocytes Absolute Auto 0.8 X10*3/uL (0.1-1.2); Monocytes Percent Auto 6.2 % (2-11); Neutrophils Percent Auto 65.1 % (45-73); Platelet Count 293 X10*3/uL (160-400); Red Blood Count 4.38 X10*6/uL (4.20-5.50); Red Cell Distribution Width 13.3 % (11.0-16.0)
[2025-02-16 18:36] LABS: Alanine Aminotransferase 32 U/L (0-31); Albumin Level 4.2 g/dL (3.5-5.0); Alkaline Phosphatase 95 U/L (39-117); Anion Gap 15 (12-20); Aspartate Amino Transferase 36 U/L (5-31); Bilirubin Total 0.3 mg/dL (0.0-1.0); Blood Urea Nitrogen 12 mg/dL (9-16); Calcium 9.3 mg/dL (8.4-10.2); Carbon Dioxide 24 mmol/L (22-29); Chloride 104 mmol/L (96-108); Estimated Glomerular Filt Rate > 60; Glucose Random 92 mg/dL (60-115); Potassium 3.8 mmol/L (3.3-5.1); Sodium 139 mmol/L (135-145); Total Protein 7.5 g/dL (6.5-8.0)
[2025-02-16 18:56] LABS: Ferritin 187 ng/mL (10-122); TSH reflex Free T4 1.07 uIU/mL (0.32-4.0)
[2025-02-16 19:02] LABS: Folate 5.5 ng/mL (> or = 4.0); Vitamin B12 351 pg/mL (200-900)
[2025-02-16 19:21] LABS: Erythrocyte Sedimentation Rate 61 MM/HR (0-20)
[2025-02-21 21:28] LABS: Vitamin D 25-OH, D2 4 ng/mL; Vitamin D 25-OH, D3 24 ng/mL; Vitamin D 25-OH, Total 28 ng/mL (30-100)
== END 2025-02-16 12:49 | disposition home or self-care (01) ==
LOC: HO.HKASLDS 12:48
PROVIDERS: PCP Nurse Practitioner; Visit Provider Psychiatry & Neurology Neurology
DX: R41.89 Other symptoms and signs involving cognitive functions and awareness (principal); M62.838 Other muscle spasm
CPT/HCPCS: 80053; 82306; 82607; 82728; 82746; 84443; 85025; 85652; 86341